=== PATIENT | female | born 1945 | race Caucasian/White ===

== ENCOUNTER 2016-08-14 13:12 | Inpatient (IN) | payer MEDICARE, OTHER ==
[~2016-08-14] VITALS: Ht 170.2 cm; Wt 86.3 kg
[~2016-08-14 13:12] MED LIST: ACET500T33 PO; AMLO10TA2 PO; AMLO5TAB2 PO; APIX5TAB PO; ASCO1TAB5 PO; ASPI81TA2 PO; ATEN25TA PO; ATOR10TA60 PO; ATOR40TA59 PO; CHOL10007 PO; CLOP75TA PO; CYAN50008 PO; FENO145T PO; FENO145T2 PO; FENO54TA PO; FURO40TA4 PO; GARL1CAP3 PO; GLIM2TAB PO; HYDR-2666 PO; HYDR-2762 PO; HYDR12.58 PO; IBUP-1007 PO; ISOS120T PO; LISI40TA PO; METF500T4 PO; MULT-650 PO; MULT1TAB97 PO; OMEG1CAP16 PO; RANI150T6 PO; SOTA80TA48 PO
[2016-08-14] MEDS ORDERED: ONDANSETRON PF 4 MG/2 ML VIAL. IV ONE (13:30)
--- NOTE | 2016-08-14 13:37 | RAD ---
Portable chest, 08/14/2016: History: Chest pain Comparison is made to a study from 01/04/2016. There has been a previous median sternotomy. The heart size and pulmonary vascularity are normal. No pulmonary infiltrates are seen. There is an unchanged small left lower lung opacity compatible with a granuloma. No pleural fluid is evident. IMPRESSION: No acute cardiopulmonary abnormality is detected.
[2016-08-14 13:44] LABS: BASO # 0.1 x10^3/uL (0.0-0.2); BASO % 1 % (0-3); EOS % 3 % (0-3); HEMATOCRIT 37.5 % (36.0-47.0); HEMOGLOBIN 12.8 g/dL (12.0-15.5); LYMPH # 2.1 x10^3/uL (1.0-4.8); LYMPH % 22 % (24-48); MEAN CORPUSCULAR HEMOGLOBIN 29 pg (25-35); MEAN CORPUSCULAR HGB CONC 34 g/dL (31-37); MEAN CORPUSCULAR VOLUME 85 fL (79-100); MONO % 8 % (0-9); NEUT % 66 % (31-73); PLATELET COUNT 372 x10^3/uL (140-400); RED BLOOD COUNT 4.42 x10^6/uL (3.50-5.40); RED CELL DISTRIBUTION WIDTH 14.8 % (11.5-14.5); WHITE BLOOD COUNT 9.9 x10^3/uL (4.0-11.0)
[2016-08-14 13:50] LABS: CALCIUM 9.4 mg/dL (8.5-10.1); CREATININE 1.2 mg/dL (0.6-1.0); GFR 44.5; MAGNESIUM 1.3 mg/dL (1.8-2.4); POTASSIUM 3.9 mmol/L (3.5-5.1)
[2016-08-14 13:53] LABS: INR 1.2 (0.8-1.1); PROTHROMBIN TIME PATIENT 14.8 SEC (11.7-14.0)
[2016-08-14 14:03] LABS: BARBITURATES NEG (NEG); BENZODIAZEPINES NEG (NEG); CANNABINOIDS NEG (NEG); COCAINE NEG (NEG); METHADONE NEG (NEG); OPIATES POS (NEG); PHENCYCLIDINE NEG (NEG)
[2016-08-14] MEDS: fentaNYL PF VIAL 100 MCG/2 ML VIAL IV PRN ×2 (14:03→14:54)
[2016-08-14] MEDS ORDERED: fentaNYL PF VIAL 100 MCG/2 ML VIAL IV PRN (14:15)
[2016-08-14] MEDS ORDERED: NITROGLYCERIN SUBLINGUAL 0.4 MG BOTTLE OF 25. SL PRN (14:15)
[2016-08-14] MEDS ORDERED: ACETAMINOPHEN 325 MG TABLET. PO PRN (14:15)
[2016-08-14] MEDS ORDERED: ONDANSETRON PF 4 MG/2 ML VIAL. IV PRN (14:15)
--- NOTE | 2016-08-14 14:17 | PHYS DOC ---
Past Medical History Past Medical History: CAD, Diabetes-Type II, High Cholesterol, Hypertension, Other Additional Past Medical Histor: carpal tunnel Past Surgical History: Coronary Bypass Surgery, Other Additional Past Surgical Histo: LEFT AKA; right carpal tunnel release Alcohol Use: None Drug Use: None Adult General Chief Complaint Chief Complaint: CHEST PAIN-CARDIAC NATURE HPI HPI Patient is a 70 year old female who presents by EMS for central chest pain starting at 1230 today associated with nausea and radiation to mid back. Symptoms are constant. Symptoms started at rest. Pain is achy. States this pain feels similar to prior heart attack pain. She denies fever or chills, vomiting , lightheadedness, dizziness, numbness, tingling, weakness, dyspnea, cough, orthopnea, leg pain or swelling, abdominal pain. Review of Systems Review of Systems Constitutional: Denies fever or chills [] Eyes: Denies change in visual acuity, redness, or eye pain [] HENT: Denies nasal congestion or sore throat [] Respiratory: Denies cough or shortness of breath [] Cardiovascular: No additional information not addressed in HPI [] GI: Denies abdominal pain, vomiting, bloody stools or diarrhea [] : Denies dysuria or hematuria [] Musculoskeletal: Denies back pain or joint pain [] Integument: Denies rash or skin lesions [] Neurologic: Denies headache, focal weakness or sensory changes [] Endocrine: Denies polyuria or polydipsia [] Current Medications Current Medications Current Medications Medications (Trade) Dose Ordered Sig/Shilo Start Time Stop Time Status Last Admin Dose Admin Fentanyl Citrate (Fentanyl 2ml Vial) 50 mcg PRN Q15MIN PRN 08/14/16 13:30 08/15/16 13:29 08/14/16 14:54 50 MCG Ondansetron HCl (Zofran) 4 mg 1X ONCE 08/14/16 13:30 08/14/16 13:31 DC 08/14/16 13:30 4 MG Allergies Allergies Allergies Coded Allergies Type Severity Reaction Last Updated Verified Penicillins Allergy Intermediate 01/05/16 Yes bacitracin Allergy Intermediate 01/05/16 Yes ciprofloxacin Allergy Intermediate 11/02/13 Yes erythromycin base Allergy Intermediate 01/05/16 Yes neomycin Allergy Intermediate 01/05/16 Yes niacin Allergy Intermediate 04/14/14 Yes polymyxin B Allergy Intermediate 11/02/13 Yes Physical Exam Physical Exam Constitutional: Well developed, well nourished, no acute distress, non-toxic appearance. [] HENT: Normocephalic, atraumatic, bilateral external ears normal, oropharynx moist, nose normal. [] Eyes: PERRLA, EOMI. [] Neck: Normal range of motion, supple. [] Cardiovascular:Heart rate regular rhythm [] Lungs & Thorax: Bilateral breath sounds clear to auscultation [] Abdomen: Bowel sounds normal, soft, no tenderness. [] Skin: Warm, dry, no erythema, no rash. [] Back: No tenderness, no CVA tenderness. [] Extremities: No tenderness, ROM intact, 1+ RLE edema. Left AKA [] Neurologic: Alert and oriented X 3, normal motor function, normal sensory function, no focal deficits noted. [] Psychologic: Affect normal, judgement normal, mood normal. [] Current Patient Data Vital Signs Vital Signs Date Time Temp Pulse Resp B/P Pulse Ox O2 Delivery O2 Flow Rate FiO2 08/14/16 14:00 116 18 133/78 97 08/14/16 13:30 Room Air 08/14/16 13:14 98.4 98.4 Lab Values Laboratory Tests Test 08/14/16 13:19 08/14/16 13:20 08/14/16 13:50 Glucose (Fingerstick) 240mg/dL (70-99) H White Blood Count 9.9x10^3/uL (4.0-11.0) Red Blood Count 4.42x10^6/uL (3.50-5.40) Hemoglobin 12.8g/dL (12.0-15.5) Hematocrit 37.5% (36.0-47.0) Mean Corpuscular Volume 85fL (79-100) Mean Corpuscular Hemoglobin 29pg (25-35) Mean Corpuscular Hemoglobin Concent 34g/dL (31-37) Red Cell Distribution Width 14.8% (11.5-14.5) H Platelet Count 372x10^3/uL (140-400) Neutrophils (%) (Auto) 66% (31-73) Lymphocytes (%) (Auto) 22% (24-48) L Monocytes (%) (Auto) 8% (0-9) Eosinophils (%) (Auto) 3% (0-3) Basophils (%) (Auto) 1% (0-3) Neutrophils # (Auto) 6.5x10^3uL (1.8-7.7) Lymphocytes # (Auto) 2.1x10^3/uL (1.0-4.8) Monocytes # (Auto) 0.8x10^3/uL (0.0-1.1) Eosinophils # (Auto) 0.3x10^3/uL (0.0-0.7) Basophils # (Auto) 0.1x10^3/uL (0.0-0.2) Prothrombin Time 14.8SEC (11.7-14.0) H Prothrombin Time INR 1.2 (0.8-1.1) H Sodium Level 139mmol/L (136-145) Potassium Level 3.9mmol/L (3.5-5.1) Chloride Level 100mmol/L (98-107) Carbon Dioxide Level 29mmol/L (21-32) Anion Gap 10 (6-14) Blood Urea Nitrogen 20mg/dL (7-20) Creatinine 1.2mg/dL (0.6-1.0) H Estimated GFR (Cockcroft-Gault) 44.5 Glucose Level 248mg/dL (70-99) H Calcium Level 9.4mg/dL (8.5-10.1) Magnesium Level 1.3mg/dL (1.8-2.4) L Troponin I Quantitative 0.022ng/mL (0.000-0.055) QG-Mqt-W-Type Natriuretic Peptide 618pg/mL (0-124) H Urine Opiates Screen Pos (NEG) Urine Methadone Screen Neg (NEG) Urine Barbiturates Neg (NEG) Urine Phencyclidine Screen Neg (NEG) Urine Amphetamine/Methamphetamine Neg (NEG) Urine Benzodiazepines Screen Neg (NEG) Urine Cocaine Screen Neg (NEG) Urine Cannabinoids Screen Neg (NEG) Urine Ethyl Alcohol Neg (NEG) Laboratory Tests 08/14/16 13:20 Laboratory Tests 08/14/16 13:20 EKG EKG EKG as interpreted by me as atrial fibrillation with right bundle branch block, rate 121, similar to prior Radiology/Procedures Radiology/Procedures Chest xray as interpreted by me with no acute cardiopulmonary disease process Course & Med Decision Making Course & Med Decision Making Pertinent Labs and Imaging studies reviewed. (See chart for details) CIERRA score 3. Workup is largely unremarkable. She has some remnant nausea, but her pain is improved after medication. Risk factors, we will admit for ACS rule out. Discussed case with Dr. Pritchard, who will admit. Cardiology consult placed. Eb Disclaimer Dragon Disclaimer This electronic medical record was generated, in whole or in part, using a voice recognition dictation system. Departure Departure Impression: Primary Impression: Chest pain Additional Impression: A-fib Disposition: ADMITTED INPATIENT Condition: STABLE Referrals: CHRISTINA PRITCHARD MD (PCP) Problem Qualifiers Primary Impression: Chest pain Chest pain type: unspecified Qualified Code: R07.9 - Chest pain, unspecified Additional Impression: A-fib Atrial fibrillation type: chronic Qualified Code: I48.2 - Chronic atrial fibrillation Js FARIA MD Aug 14, 2016 14:17
--- NOTE | 2016-08-14 15:00 | ACF ---
Admission Forms Criteria CHEST PAIN Clinical Indications for Admission to Inpatient Care (Place 'X' for any and all applicable criteria): Admission is indicated for chest pain and ANY ONE of the following(1)(2)(3)(4)(5 ): [ ]I. Angina with acute coronary syndrome (Also use Myocardial Infarction or Angina guideline) [ ]II. Hemodynamic instability [X]III. Angina needing acute intervention as indicated by ALL of the following( 11)(12): [X]a) Unstable angina is present as indicated by angina that is ANY ONE of the following: [ ]i) New onset [ ]ii) Nocturnal [X]iii) Prolonged at rest [ ]iv) Progressive [X]b) Angina warrants acute intervention as indicated by ANY ONE of the following: [ ]i) Recurrent angina (e.g, not responding as previously to treatment) [ ]ii) Angina at rest or with low-level activities despite initial medical therapy [ ]iii) New or presumably new ST-segment depression on ECG [ ]iv) Signs or symptoms of heart failure (eg, dyspnea, pulmonary edema) [ ]v) New or worsening mitral regurgitation [ ]vi) Hemodynamic instability [ ]vii) Dangerous arrhythmia (eg, sustained ventricular tachycardia) [ ]viii) History of percutaneous coronary intervention within 6 months [X]ix) History of coronary artery bypass graft surgery [ ]x) CIERRA risk score of 2 or greater[A] [ ]xi) History of Diabetes(14) [ ]xii) High-risk cardiac ischemia findings on noninvasive testing (e.g, echocardiogram, treadmill testing, nuclear scan) [ ]xiii) Chronic renal insufficiency (ie, estimated GFR less than 60 mL/min/1.732m) [ ]xiv) Left ventricular ejection fraction less than 40% [ ]IV. Evidence of IN (eg, cardiac biomarkers positive, ST-segment elevation on ECG) also use Myocardial Infarction Criteria Form. [ ]V. Pulmonary edema [ ]. Respiratory distress [ ]VII. Chest pain indicative of serious diagnosis other than coronary artery disease (eg, aortic dissection) [ ]VIII. Contraindications and/or Inappropriate clinical situations for Observational Care in patients with Chest Pain, when ANY ONE of the following is required: [ ]a) Patient with risk factor for pulmonary embolism, acute coronary syndrome and myocardial infarction (18) [ ]b) Patient with Pulmonary embolism require an average LOS of 4.3 days, therefore emergency department observation management is inappropriate 18,23 [ ]c) Painful condition/s in the elderly, have the highest rate of recidivism after emergency department observation management (10.8%) 20,21,22 [ ]d) Elevated cardiac biomarker requires intensive and exhaustive care (19) [ ]IX. General contraindications and/or Inappropriate clinical situations for Observational Care in patients with Chest Pain, when ANY ONE of the following is required: [ ]a) Prediction of prolongation of LOS based on ANY ONE of the following may be considered as a contraindication for observational care 2, 3, 4, 5, 6, 7, 8, 9, 10, 11 [ ]i) Age > 65 yrs. [ ]ii) Patient arriving by ambulance [ ]iii) Patient with high acuity [ ]iv) Patient requiring vital sign monitoring [ ]v) Patient on IV medication [ ]b) Systolic blood pressures 180mmHg 3,12 [ ]c) Patient with altered mental status including delirium and other alteration of consciousness, (3) [ ]d) Patient whose discharge disposition will be to a half-way home or rehabilitation home should not be managed in Emergency Department Observation Unit. CMS rule requires 3 days hospital stay before such placement. 3,13 [ ]e) Patient with failure to thrive due to broad array of etiologies 3,16,17 [ ]f) Inability to ambulate 3,14 Extended stay beyond goal length of stay may be needed for (1)(28): [ ]a) Specific condition diagnosed after evaluation (eg, pulmonary embolism, aortic dissection) [ ]b) Unstable angina [ ]c) Continued suspicion of acute coronary syndrome with inability to complete needed cardiac evaluation (eg, patient clinically unable to undergo stress testing) [ ]d) Myocardial infarction (Contents from ANGINA and CHEST PAIN clinical indications for admission to inpatient care have been integrated in this form) The original [email or web address] content created by [email or web address] has been revised. The portions of the content which have been revised are identified through the use of italic text or in bold, and [facility] [employer] has neither reviewed nor approved the modified material. All other unmodified content is copyright [email or web address]. Please see references footnoted in the original [facility] edition 2016 Admission Criteria Met?: Yes GIRMA JOHN Aug 14, 2016 15:00
--- NOTE | 2016-08-14 16:03 | EKG ---
[facility] [address] [place] [address] Test Date: 2016-08-14 Test Time: 13:14:26 Pat Name: MARISA RIOJAS Department: Room: 244 1 Gender: F Network Associate: : 1945 Requested By: Js FARIA Order Number: [id number] Reading MD: Christy King Measurements Intervals [place] Rate: 121 P: NC: QRS: -70 QRSD: 122 T: 65 QT: 346 QTc: 494 Interpretive Statements ATRIAL FIB./FLUTTER WITH RAPID VENTRICULAR RESPONSE LEFT ANTERIOR FASCICULAR BLOCK INCOMPLETE RIGHT BUNDLE BRANCH BLOCK RVH WITH REPOLARIZATION ABNORMALITY Electronically Signed On 08-18-2016 13:33:22 CDT by Christy King
[2016-08-14 16:35] VITALS: BP 148/51
[2016-08-14 19:21] VITALS: BP 162/59
[2016-08-14] MEDS ORDERED: ZOLPIDEM 5 MG TABLET. PO PRN (21:00)
[2016-08-14] MEDS ORDERED: FAMOTIDINE 20 MG TABLET. PO PRN (21:15)
[2016-08-14] MEDS: ATORVASTATIN CALCIUM 40 MG TABLET. PO SCH (21:36)
[2016-08-14 22:18] VITALS: BP 174/60
[2016-08-14] MEDS: amLODIPine BESYLATE 5 MG TABLET PO SCH (23:00)
[2016-08-14] MEDS: APIXABAN 5 MG TABLET. PO SCH (23:00)
[2016-08-15] VITALS (8 sets, daily range): BP systolic 163–184; BP diastolic 55–73
[2016-08-15] MEDS: HYDROCODONE/APAP 5/325MG TABLET. PO PRN ×2 (03:27→23:17)
[2016-08-15] MEDS ORDERED: amLODIPine BESYLATE 5 MG TABLET PO ONE (04:00)
[2016-08-15] MEDS: APIXABAN 5 MG TABLET. PO SCH (07:00)
[2016-08-15] MEDS ORDERED: ANTI-COAG MONITOR BY PHARMACY. MC PRN (08:30)
[2016-08-15] MEDS ORDERED: amLODIPine BESYLATE 5 MG TABLET PO SCH (09:00)
[2016-08-15] MEDS ORDERED: NON FORMULARY ITEM (Ascorbate Calcium/Bioflavonoid (Ester-C 1,000 Mg Tablet) 1 EACH) PO SCH (09:00)
[2016-08-15] MEDS ORDERED: HYDROCHLOROTHIAZIDE 12.5 MG CAPSULE. PO SCH (09:00)
[2016-08-15] MEDS ORDERED: SOTALOL 80 MG TABLET. PO SCH (09:00)
[2016-08-15] MEDS ORDERED: LISINOPRIL 40 MG TABLET. PO SCH (09:00)
[2016-08-15] MEDS: CLOPIDOGREL BISULFATE 75 MG TABLET PO SCH (09:07)
[2016-08-15] MEDS: CHOLECALCIFEROL (VITAMIN D3) 1,000 UNIT TABLET PO SCH (09:07)
[2016-08-15] MEDS: OMEGA-3 FATTY ACIDS/FISH OIL 1,000 MG CAPSULE. PO SCH (09:07)
[2016-08-15] MEDS: FUROSEMIDE 40 MG TABLET. PO SCH (09:07)
[2016-08-15] MEDS: ASPIRIN CHEWABLE 81 MG TABLET. PO SCH (09:07)
[2016-08-15] MEDS: ISOSORBIDE MONONITRATE ER 60 MG TAB.ER.24H. PO SCH (09:07)
[2016-08-15] MEDS: GLIMEPIRIDE 2 MG TABLET. PO SCH (09:08)
[2016-08-15] MEDS: CYANOCOBALAMIN (VITAMIN B-12) 1,000 MCG TABLET. PO SCH (09:08)
--- NOTE | 2016-08-15 09:25 | PDOC ---
Provider Note Provider Note [id number] CHRISTINA ROSENBAUM MD Aug 15, 2016 09:25
[2016-08-15] MEDS ORDERED: HEPARIN 25,000UTS/500ML PREMIX 500 ML IV PRN (09:30)
[2016-08-15] MEDS ORDERED: HEPARIN for IV BOLUS 10,000 UNIT/10 ML VIAL. IV PRN (09:30)
[2016-08-15] MEDS ORDERED: LABETALOL 20 MG/4 ML DISP.SYRIN. IVP PRN (09:30)
--- NOTE | 2016-08-15 09:38 | PDOC2 ---
GOPI HERNANDEZ DIRECTOR OF ACQUISITIONS 08/15/16 0938: CARDIAC CONSULT DATE OF CONSULT Date of Consult DATE: 08/15/16 TIME: 09:26 REASON FOR CONSULT Reason for Consult: Chest pain REFERRING PHYSICIAN Referring Physician: Liam SOURCE Source: Chart review, Patient HISTORY OF PRESENT ILLNESS HISTORY OF PRESENT ILLNESS This is a pleasant 70 yo female admitted for complains of chest pain. Reports that she was taking a nap yesterday and woke up with pulsating sensation to her right neck around noon. she checked it with her BP device and noted HR in the 120s. She then started having retrosternal heaviness that radiated to her mid back. she was also having bilateral shoulder discomfort more to right side. In addition she was sick to her stomach and was nauseated but no vomiting. Also positive for diaphoresis but no SOA. Her symptoms peaked for about 1 hour before it started getting better. Reports that she 3 loose stools yesterday, not watery, but it has resolved since then. Denies any fever or chills. No presyncopal symptoms. Verbalized compliance with her cardiac meds. She did tell me that she stopped taking her DM meds since she was told that she does not need anymore. She does not check her BG and BP at home. She is sedentary, WC bound with LAKA. Upon admission she was noted with AFIB RVR in which she is now in SR. She is known for CAD, PAD, PAFIB but no hx of VTE. Currently she is CP free and no current symptoms except for right shoulder discomfort which she attributes to OA. PAST MEDICAL HISTORY Past Medical History Cardiovascular: AFIB, CAD (with CABG - 2008 and PCI/stent to left main), HTN, Hyperlipidemia, Other (PVD with stent to right SFA and stents to bilateral renal arteries), moderate to severe Pulmonary: No pertinent hx CENTRAL NERVOUS SYSTEM: Other (none) GI: No pertinent hx Heme/Onc: No pertinent hx Hepatobiliary: No pertinent hx Psych: No pertinent hx Musculoskeletal: Osteoarthritis Rheumatologic: No pertinent hx Infectious disease: No pertinent hx ENT: No pertinent hx Renal/: Chronic renal insuff, Right renal artery showed 100% chronic occlusion within the stent in the proximal segment. Left renal artery showed 30 % in-stent restenosis within the stent in the proximal segment. Endocrine: Diabetes (type II) Dermatology: No pertinent hx PAST SURGICAL HISTORY Past Surgical History CABG (2008), Other (ectopic ; left AKA from [facility]; left hip surgery), 2015 renal and femoral angiogram, 03/2016 Orbital atherectomy/balloon [employer]/stent placement to the right superficial femoral artery FAMILY HISTORY Family History: Coronary Artery Disease SOCIAL HISTORY Social History Smoke: Quit (2008) ALCOHOL: none Drugs: None CURRENT MEDICATIONS CURRENT MEDICATIONS Current Medications Medications (Trade) Dose Ordered Sig/Shilo Route PRN Reason Start Time Stop Time Status Last Admin Dose Admin Fentanyl Citrate (Fentanyl 2ml Vial) 50 mcg PRN Q15MIN PRN IV PAIN GREATER THAN 3/10 08/14/16 13:30 08/15/16 13:29 08/14/16 14:54 Ondansetron HCl (Zofran) 4 mg 1X ONCE IV 08/14/16 13:30 08/14/16 13:31 DC 08/14/16 13:30 Apixaban (Eliquis) 5 mg [id number] PO 08/14/16 19:00 08/14/16 23:00 Aspirin (Children'S Aspirin) 81 mg DAILYWBKFT PO 08/15/16 08:00 08/15/16 09:07 Atorvastatin Calcium (Lipitor) 40 mg HS PO 08/14/16 21:00 08/14/16 21:36 Clopidogrel Bisulfate (Plavix) 75 mg DAILYWBKFT PO 08/15/16 08:00 08/15/16 09:07 Furosemide (Lasix) 40 mg DAILY PO 08/15/16 09:00 08/15/16 09:07 Glimepiride (Amaryl) 1 mg DAILY08 PO 08/15/16 08:00 08/15/16 09:08 Acetaminophen/ Hydrocodone Bitart (Lortab 5/325) 2 tab PRN Q6HRS PRN PO PAIN 08/14/16 18:45 08/15/16 03:27 Lisinopril (Prinivil) 40 mg DAILY PO 08/15/16 09:00 08/15/16 09:06 Vitamin D (Vitamin D3) 2,000 unit DAILY PO 08/15/16 09:00 08/15/16 09:07 Cyanocobalamin (Vitamin B-12) 5,000 mcg DAILY PO 08/15/16 09:00 08/15/16 09:08 Hydrochlorothiazide (Microzide) 12.5 mg DAILY PO 08/15/16 09:00 08/15/16 09:06 Isosorbide Mononitrate (Imdur) 120 mg DAILY PO 08/15/16 09:00 08/15/16 09:07 Fish Oil (Fish Oil) 2,000 mg DAILY PO 08/15/16 09:00 08/15/16 09:07 Famotidine (Pepcid) 40 mg PRN DAILY PRN PO GERD 08/14/16 21:15 08/14/16 21:36 Amlodipine Besylate (Norvasc) 5 mg HS PO 08/14/16 22:30 08/14/16 23:00 Amlodipine Besylate (Norvasc) 5 mg 1X ONCE PO 08/15/16 04:00 08/15/16 04:01 DC 08/15/16 03:49 Info (Anti-Coagulation Monitoring By Pharmacy) 1 each PRN DAILY PRN MC SEE COMMENTS 08/15/16 08:30 08/15/16 08:20 ALLERGIES ALLERGIES: Coded Allergies: Penicillins (Verified Allergy, Intermediate, 01/05/16) bacitracin (Verified Allergy, Intermediate, 01/05/16) ciprofloxacin (Verified Allergy, Intermediate, 11/02/13) erythromycin base (Verified Allergy, Intermediate, 01/05/16) neomycin (Verified Allergy, Intermediate, 01/05/16) niacin (Verified Allergy, Intermediate, 04/14/14) polymyxin B (Verified Allergy, Intermediate, 11/02/13) ROS Review of System 14 point ROS evaluated with pertinent positives noted per HPI PHYSICAL EXAM General: Alert, Oriented X3, Cooperative, No acute distress HEENT: Atraumatic, Mucous membr. moist/pink Lungs: Clear to auscultation, Normal air movement Heart: Regular rate (SR), Normal S1, Normal S2, Other (4/6 systolic murmur loudest to AMBAR border) Abdomen: Soft, No tenderness Extremities: No cyanosis, Other (LAKA, RLE with 2+ pitting edema) Skin: No breakdown, No significant lesion Neuro: Normal speech, Sensation intact Psych/Mental Status: Mental status NL, Mood NL MUSCULOSKELETAL: Osteoarthritic changes both hands VITALS VITALS Vital Signs Date Time Temp Pulse Resp B/P Pulse Ox O2 Delivery O2 Flow Rate FiO2 08/15/16 09:07 170/72 08/15/16 06:55 98.2 57 18 94 Room Air 98.2 LABS Lab: Laboratory Tests Test 08/14/16 13:19 08/14/16 13:20 08/14/16 13:50 08/14/16 20:00 Glucose (Fingerstick) 240mg/dL (70-99) White Blood Count 9.9x10^3/uL (4.0-11.0) Red Blood Count 4.42x10^6/uL (3.50-5.40) Hemoglobin 12.8g/dL (12.0-15.5) Hematocrit 37.5% (36.0-47.0) Mean Corpuscular Volume 85fL (79-100) Mean Corpuscular Hemoglobin 29pg (25-35) Mean Corpuscular Hemoglobin Concent 34g/dL (31-37) Red Cell Distribution Width 14.8% (11.5-14.5) Platelet Count 372x10^3/uL (140-400) Neutrophils (%) (Auto) 66% (31-73) Lymphocytes (%) (Auto) 22% (24-48) Monocytes (%) (Auto) 8% (0-9) Eosinophils (%) (Auto) 3% (0-3) Basophils (%) (Auto) 1% (0-3) Neutrophils # (Auto) 6.5x10^3uL (1.8-7.7) Lymphocytes # (Auto) 2.1x10^3/uL (1.0-4.8) Monocytes # (Auto) 0.8x10^3/uL (0.0-1.1) Eosinophils # (Auto) 0.3x10^3/uL (0.0-0.7) Basophils # (Auto) 0.1x10^3/uL (0.0-0.2) Prothrombin Time 14.8SEC (11.7-14.0) Prothromb Time International Ratio 1.2 (0.8-1.1) Sodium Level 139mmol/L (136-145) Potassium Level 3.9mmol/L (3.5-5.1) Chloride Level 100mmol/L (98-107) Carbon Dioxide Level 29mmol/L (21-32) Anion Gap 10 (6-14) Blood Urea Nitrogen 20mg/dL (7-20) Creatinine 1.2mg/dL (0.6-1.0) Estimated GFR (Cockcroft-Gault) 44.5 Glucose Level 248mg/dL (70-99) Calcium Level 9.4mg/dL (8.5-10.1) Magnesium Level 1.3mg/dL (1.8-2.4) Troponin I Quantitative 0.022ng/mL (0.000-0.055) 2.297ng/mL (0.000-0.055) RK-Ulf-T-Type Natriuretic Peptide 618pg/mL (0-124) Urine Opiates Screen Pos (NEG) Urine Methadone Screen Neg (NEG) Urine Barbiturates Neg (NEG) Urine Phencyclidine Screen Neg (NEG) Urine Amphetamine/Methamphetamine Neg (NEG) Urine Benzodiazepines Screen Neg (NEG) Urine Cocaine Screen Neg (NEG) Urine Cannabinoids Screen Neg (NEG) Urine Ethyl Alcohol Neg (NEG) Test 08/15/16 02:55 Troponin I Quantitative 4.636ng/mL (0.000-0.055) ECHOCARDIOGRAM ECHOCARDIOGRAM <Conclusion> Left ventricle systolic function is normal. The Ejection Fraction is 50-55%. There is normal LV segmental wall motion. Tissue Doppler imaging reveals moderate left ventricular diastolic dysfunction. The aortic valve is moderately calcified and displays decreased opening. Doppler and Color Flow revealed moderate aortic regurgitation. Calculated aortic valve area is 1.2 cm2 with maximum pressure gradient of 51 mmHg and mean pressure gradient of 27 mmHg. Visual appearance suggestive of moderate to severe aortic stenosis. Doppler and Color Flow revealed mild tricuspid regurgitation. The PA pressure was estimated at 48 mmHg (mild to moderate pulmonary HTN) DATE: 11/21/15 1220 ASSESSMENT/PLAN ASSESSMENT/PLAN 1. NSTEMI: troponin 4.6, EKG AFIB 2. CAD: CABG/stents in the past. [facility] 08/2015 GUTIERREZ to LAD patent. 60% mid lesion to LAD, Chronically occluded RCA with 80% ostial lesion. 40% lesion to LCx 3. AFIB RVR: paroxysmal by baseline. on sotalol. Has converted back to SR. QTc 448 4. Polyvalvular insufficiency: notable for moderate to severe with mod AI. 5. Chronic diastolic CHF: 10/2015 TTE EF 50-55% with normal LV function 6. PAD: recent RSFA percutaneous revascularization 7. Accelerated HTN: missed medications 8. DM2/HLP: Stopped taking amaryl 2 weeks ago. 9. 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 Hypomagnesemia 11. FRANTZ on CKD: likely stage 3 by baseline, prerenal 12. Diarrhea: 3 loose stools (not watery) yesterday, now resolved. Per PCP Recommendations 1. Continue with DAPT 2. Stop eliquis and start on heparin drip 3. Continue with sotalol and current home regimen. 4. Lisinopril has been given and will stop for now. Labetalol IV PRN 5. Replace Mg and start on IVF. 6. CMP, Mg, TSH, repeat EKG. 7. Significant other contributors for troponin elevation but with typical features, await TTE result and will consider for LHC tomorrow. 8. TTE, and continue to trend troponin Problems: WILLI LINDSEY MD 08/16/16 0748: CARDIAC CONSULT ALLERGIES ALLERGIES: Coded Allergies: Penicillins (Verified Allergy, Intermediate, 01/05/16) bacitracin (Verified Allergy, Intermediate, 01/05/16) ciprofloxacin (Verified Allergy, Intermediate, 11/02/13) erythromycin base (Verified Allergy, Intermediate, 01/05/16) neomycin (Verified Allergy, Intermediate, 01/05/16) niacin (Verified Allergy, Intermediate, 04/14/14) polymyxin B (Verified Allergy, Intermediate, 11/02/13) ASSESSMENT/PLAN ASSESSMENT/PLAN Patient seen and examined 08/15/16. Agree with FRONT OF HOUSE MANAGER's assessment and plan. Patient with history of coronary artery disease s/p coronary artery bypass surgery presently admitted with non-STEMI. Continue heparin infusion per protocol. 2-D echo showed preserved left ventricle systolic function. Blood pressure better controlled since admission. Plan for cardiac catheterization and possible angioplasty. Risks and benefits explained. Thank you for the consultation. Problems: GOPI HERNANDEZ APRN Aug 15, 2016 09:38 WILLI LINDSEY MD Aug 16, 2016 07:48
[2016-08-15 09:58] LABS: ALBUMIN 2.9 g/dL (3.4-5.0); ALBUMIN/GLOBULIN RATIO 0.8 (1.0-1.7); CALCIUM 8.9 mg/dL (8.5-10.1); CREATININE 1.6 mg/dL (0.6-1.0); MAGNESIUM 1.3 mg/dL (1.8-2.4); POTASSIUM 3.6 mmol/L (3.5-5.1); TOTAL BILIRUBIN 0.5 mg/dL (0.2-1.0); TOTAL PROTEIN 6.5 g/dL (6.4-8.2)
[2016-08-15 10:01] LABS: CHOLESTEROL/HDL RATIO 3.6
[2016-08-15] MEDS ORDERED: IV NORMAL SALINE 1000ML BAG 1,000 ML IV ONE (10:15)
--- NOTE | 2016-08-15 10:45 | EKG ---
[facility] [address] [place] [address] Test Date: 2016-08-15 Test Time: 10:41:25 Pat Name: MARISA RIOJAS Department: Room: 261 1 Gender: F Zanjero: MARILY : 1945 Requested By: GOPI HERNANEDZ Order Number: [id number] Reading MD: Bhupendra Kemp Measurements Intervals [place] Rate: 59 P: 9 CA: 182 QRS: -21 QRSD: 124 T: 24 QT: 448 QTc: 448 Interpretive Statements SINUS RHYTHM RIGHT BUNDLE BRANCH BLOCK NON-SPECIFIC ST/T CHANGES Electronically Signed On 08-21-2016 14:21:21 CDT by Bhupendra Kemp
[2016-08-15] MEDS: IV NORMAL SALINE 1000ML BAG 1,000 ML IV SCH (10:52)
[2016-08-15] MEDS ORDERED: MAGNESIUM SULFATE 2GM 50 ML IV ONE (11:00)
--- NOTE | 2016-08-15 14:31 | HP ---
ADMIT DATE: 08/15/2016 CHIEF COMPLAINT: Chest pain. HISTORY OF PRESENT ILLNESS: A _[id number] white female with a history of coronary artery disease, peripheral vascular disease and diabetes who was awakened on the morning of admission with rapid heartbeat and then subsequently some chest pain. She has not had any chest pain recently and had an episode of a transient atrial fibrillation one or two months ago. At that time, she was switched from atenolol to sotalol and has not felt that same recurrence of fast heart rate until the day of admission. She had atrial fibrillation in the ER with a rate of 120 and at some point, this converted to sinus rhythm. She has had no pain since then. PAST MEDICAL HISTORY: Well documented in the old records. ALLERGIES: PENICILLIN AND CIPRO. MEDICATIONS: Multiple blood pressure medicines, well controlled type 2 diabetes with glimepiride only. SOCIAL HISTORY: Nonsmoker. 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 FAMILY HISTORY: Unremarkable. REVIEW OF SYSTEMS: No other specific complaints. OBJECTIVE: ENT: All within normal limits. NECK: No bruits, nodes or masses. LUNGS: Clear. CARDIOVASCULAR: Grade 2 systolic murmur throughout the precordium. No irregular beat or murmur. ABDOMEN: Benign, nontender. 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 Right leg shows 1+ edema. Decreased pedal pulses. Upper extremities normal. SKIN: Warm. ASSESSMENT: Recurrent atrial fibrillation with rapid ventricular response and then secondary to some subsequent chest pain and elevation of troponin. She is back in sinus rhythm now and feeling better. This could have just been demand ischemia with troponin elevation. PLAN: We will increase sotalol for now. She is already on Eliquis and aspirin. Cardiovascular consultation has been obtained. CHRISTINA ROSENBAUM MD DR: AVNI/concetta JOB#: [id number] / [id number]
--- NOTE | 2016-08-15 15:34 | CARD ---
APPROVED REPORT EXAM: Two-dimensional and M-mode echocardiogram with Doppler and color Doppler. Other Information Quality : Average Rhythm : NSR INDICATION Atrial Fibrillation Chest Pain 2D DIMENSIONS Left Atrium(2D)4.7 (1.6-4.0cm)IVSd0.9 (0.7-1.1cm) LVDd5.4 (3.9-5.9cm)LVOT Diameter2.0 (1.8-2.4cm) PWd1.0 (0.7-1.1cm)LVDs3.4 (2.5-4.0cm) FS (%) 36.0 %SV91.2 ml LVEF(%)65.1 (>50%) Aortic Valve AoV Peak Donte.344.5cm/sAoV VTI84.5cm AO Peak GR.47.5mmHgLVOT VTI 38.98cm AO Mean GR.20mmHgAVA (VTI)1.30cm2 AI P 1/2 Zynu365ul Mitral Valve MV E Oeqnmybv415.3cm/sMV E Peak Gr.5mmHg MV DECEL [id number] A Katcljei21.5cm/s MV E Mean Gr.2mmHgMV WVI95zc E/A Ratio1.4MV A Dcrsoxdk430zm MVA (PHT)2.82cm2 TDI Lateral E' P. V7.59cm/sMedial E' P. V5.36cm/s E/Lateral E'13.6E/Medial E'19.3 Tricuspid Valve TR P. Wqofrylp294ze/sRAP FZLPGBMT8ahLy TR Peak Gr.25xlTzQVTU92znTk Pulmonary Vein S1 Qskvccfj60.9cm/sS2 Oiddliuf36.93cm/s D2 Oiqqgzrv30.9cm/s LEFT VENTRICLE The left ventricle is normal size. The left ventricle is normal size. There is normal left ventricula r wall thickness. Left ventricle systolic function is normal. The Ejection Fraction is 60-65%. There is normal LV segmental wall motion. The left ventricular diastolic function and filling is normal for age. RIGHT VENTRICLE The right ventricle is normal size. The right ventricular systolic function is normal. ATRIA The left atrium size is normal. The right atrium size is normal. The interatrial septum is intact wit h no evidence for an atrial septal defect or patent foramen ovale as noted on 2-D or Doppler imaging. AORTIC VALVE The aortic valve is not well visualized. Doppler and Color Flow revealed mild to moderate aortic regu rgitation. Calculated aortic valve area is 1.3 cm2 with maximum pressure gradient of 48 mmHg and mean pressure gradient of 20 mmHg. MITRAL VALVE The mitral valve is normal in structure and function. There is no mitral valve stenosis. Doppler and Color Flow revealed mild mitral regurgitation. TRICUSPID VALVE The tricuspid valve is normal in structure and function. Doppler and Color Flow revealed mild tricusp id regurgitation. The PA pressure was estimated at 25 mmHg. There is no tricuspid valve stenosis. PULMONIC VALVE The pulmonic valve is not well visualized. Doppler and Color Flow revealed no pulmonic valvular regur gitation. There is no pulmonic valvular stenosis. GREAT VESSELS The aortic root is normal in size. Normal pulmonary venous flow (Doppler). The IVC was not visualized . PERICARDIAL EFFUSION There is no evidence of significant pericardial effusion. Critical Notification Critical Value: No <Conclusion> Left ventricle systolic function is normal. The Ejection Fraction is 60-65%. There is normal LV segmental wall motion. Mild to moderate aortic regurgitation. Mild mitral regurgitation. Mld tricuspid regurgitation. The PA pressure was estimated at 25 mmHg. There is no evidence of significant pericardial effusion.
[2016-08-15] MEDS: SOTALOL 80 MG TABLET. PO SCH (18:20)
[2016-08-15] MEDS: amLODIPine BESYLATE 5 MG TABLET PO SCH (21:09)
[2016-08-15] MEDS: ATORVASTATIN CALCIUM 40 MG TABLET. PO SCH (21:09)
[2016-08-16] VITALS (17 sets, daily range): BP systolic 113–198; BP diastolic 49–73
[2016-08-16] MEDS: IV NORMAL SALINE 1000ML BAG 1,000 ML IV SCH ×2 (01:00→15:02)
[2016-08-16] MEDS: SOTALOL 80 MG TABLET. PO SCH ×2 (05:55→17:20)
[2016-08-16] MEDS: OMEGA-3 FATTY ACIDS/FISH OIL 1,000 MG CAPSULE. PO SCH (09:33)
[2016-08-16] MEDS: GLIMEPIRIDE 2 MG TABLET. PO SCH (09:33)
[2016-08-16] MEDS: CYANOCOBALAMIN (VITAMIN B-12) 1,000 MCG TABLET. PO SCH (09:33)
[2016-08-16] MEDS: ISOSORBIDE MONONITRATE ER 60 MG TAB.ER.24H. PO SCH (09:34)
[2016-08-16] MEDS: CHOLECALCIFEROL (VITAMIN D3) 1,000 UNIT TABLET PO SCH (09:34)
[2016-08-16] MEDS: ASPIRIN CHEWABLE 81 MG TABLET. PO SCH (09:34)
[2016-08-16] MEDS: FUROSEMIDE 40 MG TABLET. PO SCH (09:34)
[2016-08-16] MEDS: CLOPIDOGREL BISULFATE 75 MG TABLET PO SCH (09:34)
[2016-08-16 09:40] LABS: CALCIUM 8.5 mg/dL (8.5-10.1); CREATININE 1.2 mg/dL (0.6-1.0); GFR 44.5
--- NOTE | 2016-08-16 09:50 | PDOC ---
Provider Note Provider Note trop back down, tsh ok, no more AF so far on higher dose sotalol- creat down also- cath today CHRISTINA ROSENBAUM MD Aug 16, 2016 09:50
[2016-08-16] MEDS ORDERED: LIDOCAINE 2% 20 ML VIAL. ONE (11:01)
[2016-08-16] MEDS ORDERED: IODIXANOL 320 MG/ML 100 ML VIAL. ONE (11:01)
[2016-08-16] MEDS ORDERED: MIDAZOLAM HCL/PF 2 MG/2 ML VIAL. ONE (11:26)
[2016-08-16] MEDS ORDERED: fentaNYL PF VIAL 100 MCG/2 ML VIAL ONE (11:26)
[2016-08-16] MEDS ORDERED: LIDOCAINE 2% 20 ML VIAL. IJ ONE (11:29)
[2016-08-16] MEDS ORDERED: BIVALIRUDIN 250 MG VIAL. IV ONE ×2 (11:42→11:46)
[2016-08-16] MEDS ORDERED: NITROGLYCERIN 200 MCG/2 ML SYRINGE FOR CATH/VASC LAB. IART ONE (11:47)
[2016-08-16] MEDS ORDERED: hydrALAZINE 20 MG/ML VIAL. ONE ×2 (11:59→12:07)
[2016-08-16] MEDS ORDERED: NITROGLYCERIN PREMIX 250 ML IV ONE (11:59)
[2016-08-16] MEDS ORDERED: hydrALAZINE 20 MG/ML VIAL. IVP ONE ×2 (12:00→12:11)
[2016-08-16] MEDS ORDERED: IODIXANOL 320 MG/ML 100 ML VIAL. IART ONE (12:00)
[2016-08-16] MEDS ORDERED: MIDAZOLAM HCL/PF 2 MG/2 ML VIAL. IV ONE (12:00)
[2016-08-16] MEDS ORDERED: fentaNYL PF VIAL 100 MCG/2 ML VIAL IV ONE (12:00)
[2016-08-16] MEDS ORDERED: CONTRAST GIVEN MC PRN (12:00)
[2016-08-16] MEDS ORDERED: NITROGLYCERIN PREMIX 250 ML IV PRN (12:04)
[2016-08-16] MEDS ORDERED: CLOPIDOGREL BISULFATE 75 MG TABLET ONE (12:22)
[2016-08-16] MEDS ORDERED: CLOPIDOGREL BISULFATE 75 MG TABLET PO ONE (12:23)
--- NOTE | 2016-08-16 16:30 | CARD ---
APPROVED REPORT Procedure(s) performed: Coronaries PTCA / STENT To Circumflex HISTORY previous IA: diabetes mellitus with oral treatment, peripheral vascular disease, coronary artery dise ase, chronic lung disease, previous PCI (The PCI date was ), hypertension, previous CABG (The CABG da te was ), dyslipidemia, family history of premature CAD. INDICATION The indication(s) include : non-STEMI . CASE TECHNIQUE During this case, Fluoroscopy and low osmolar contrast were used for imaging. PROCEDURE NARRATIVE After appropriate informed consent the patient was brought to the catheterization laboratory and plac ed supine on the table. The right groin was prepped and draped in usual sterile fashion. Under 2% lid ocaine local anesthesia a 6 Telugu introducer sheath was placed in the right common femoral artery. N ext, a diagnostic JL4 and JR4 catheter were used to perform angiography of the left and right coronar y arteries as well as the left internal mammary artery bypass graft to the LAD. Due to angiographic evidence of a focal 80% mid first obtuse marginal lesion and intervention was the n performed. Coronary findings: LM: Normal angiographic appearance LAD: Large caliber vessel with a proximal to mid 80% stenosis. The distal vessel fills via a patent L SACHIN to LAD and has no significant disease. D1: Small caliber vessel with mild luminal irregularities. D2: Small to moderate caliber vessel with LCx: Large caliber vessel with mild diffuse irregularities of up to 30%. OM1: Large caliber vessel with a proximal to mid focal 80% stenosis. RCA: Known occluded and not injected. Bypass grafts: GUTIERREZ to LAD - Widely patent without anastomotic stenosis. RCFA: Limited angiography reveals mild atherosclerotic plaque with non-flow limited dissections. INTERVENTIONAL TECHNIQUE: Based upon the presented symptoms of chest pain, elevated biomarkers with a troponin of 4.6 and a foc al 80% circumflex stenosis and intervention was performed. Bivalirudin was administered for anticoagu lation. Next EBU 3.5 guide catheter a 0.014 inch pro-water wire was advanced to the distal obtuse mar ginal. Next, a 3.0 x 12 mm balloon was used to angioplasty the lesion at 18 aileen. Next of the lesion w as stented with a 3.25 mm x 18 mm drug-eluting stent at 20 aileen. Post-PCI angiography revealed excelle nt stent expansion. There is mild to moderate diffuse atherosclerotic plaque proximal to the stent an d distal to the stent but given excellent flow and lack of any critical stenosis further intervention was deferred. The right groin sheath was removed with a Mynx Jeronimo device and hemostasis was achieved. The patient received 300 mg of Plavix in addition to the daily Plavix that she had already been give n. Conclusion 1. Three vessel CAD 2. Patent GUTIERREZ to LAD 3. Successful PCI of the LCx with implantation of a Xience 3.25mmx 18 LARA. Recommendations Aggressive Medical Therapy ASA 81mg daily indefinitely Plavix 75mg daily indefinitely if tolerated, but atleast 1 full year.
[2016-08-16] MEDS: HYDROCODONE/APAP 5/325MG TABLET. PO PRN (17:19)
[2016-08-16] MEDS: amLODIPine BESYLATE 5 MG TABLET PO SCH (20:44)
[2016-08-16] MEDS: ATORVASTATIN CALCIUM 40 MG TABLET. PO SCH (20:44)
[2016-08-17] VITALS (7 sets, daily range): BP systolic 118–148; BP diastolic 54–70
[2016-08-17] MEDS: HYDROCODONE/APAP 5/325MG TABLET. PO PRN (02:12)
[2016-08-17] MEDS: IV NORMAL SALINE 1000ML BAG 1,000 ML IV SCH (03:37)
[2016-08-17] MEDS: SOTALOL 80 MG TABLET. PO SCH ×2 (06:04→18:38)
--- NOTE | 2016-08-17 08:30 | PDOC ---
Provider Note Provider Note sleeping, vss, no new problems- still on heparin- labs ok- remains in nsr w/ higher dose sotalol- plan based on cath result CHRISTINA ROSENBAUM MD Aug 17, 2016 08:30
[2016-08-17] MEDS: FUROSEMIDE 40 MG TABLET. PO SCH (08:44)
[2016-08-17] MEDS: CHOLECALCIFEROL (VITAMIN D3) 1,000 UNIT TABLET PO SCH (08:45)
[2016-08-17] MEDS: CLOPIDOGREL BISULFATE 75 MG TABLET PO SCH (08:45)
[2016-08-17] MEDS: ASPIRIN CHEWABLE 81 MG TABLET. PO SCH (08:45)
[2016-08-17] MEDS: CYANOCOBALAMIN (VITAMIN B-12) 1,000 MCG TABLET. PO SCH (08:45)
[2016-08-17] MEDS: OMEGA-3 FATTY ACIDS/FISH OIL 1,000 MG CAPSULE. PO SCH (08:46)
[2016-08-17] MEDS: GLIMEPIRIDE 2 MG TABLET. PO SCH (08:46)
--- NOTE | 2016-08-17 09:25 | PDOC ---
GOPI HERNANDEZ SPINNING MULE TENDER 08/17/16 0925: CARDIO Progress Notes Date and Time Date of Service 08/17/2016 Time of Evaluation 1000 Subjective Subjective: No Chest Pain, No shortness of breath, No Palpitations, No Dizziness, Other ([place] [facility] [place] Vitals Vitals Vital Signs Date Time Temp Pulse Resp B/P Pulse Ox O2 Delivery O2 Flow Rate FiO2 08/17/16 09:03 98.3 50 18 133/56 93 Room Air 98.3 Weight Weight [ ] Input and Output Intake and Output Intake and Output 08/17/16 07:00 Intake Total 650 ml Output Total 1000 ml Balance -350 ml Intake Oral 650 ml Output Urine Total 1000 ml Physical Exam HEENT: Neck Supple W Full Motion Chest: Symmetric LUNGS: Clear to Auscultation Heart: S1S2, RRR (SR/SB) Abdomen: Soft N/T Extremities: No Calf Tenderness, Other (LAKA and RLE with 1-2+ pitting edema) Neurology: alert, oriented, follow commands Other Exams right groin arteriotomy site intact without swelling and erythema, neurovascular status to [facility] LE intact Assessment Assessment 1. NSTEMI: S/P PCI/LARA to LCx 08/16/2016 2. CAD: CABG/stents in the past. stable. 3. PAFIB: currently SR/SB, slowest at high 40s which is likely from added NTG drip. 4. Polyvalvular insufficiency: notable for moderate to severe with mod AI. 5. Chronic diastolic CHF: EF 60-65%, normal wall motion. Compensated 6. PAD: recent RSFA percutaneous revascularization. stable 7. Accelerated HTN: improved 8. DM2/HLP: Stopped taking amaryl 2 weeks ago. Defer to PCP 9. 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 Hypomagnesemia 11. FRANTZ on CKD3: improved Recommendations 1. Continue with DAPT ASA/plavix. Anticipate DC this afternoon pending BP/HR control. 2. Resume eliquis tonight 3. Continue with sotalol and current home regimen. DC NTG drip. Continue on home imdur. 4. With ANNA will not resume lisinopril and will consider on hydralazine if BP trends high. 5. Replace Mg 6. BMP 7. F/U in office in 4 weeks. 8. Post cath instructions. WILLI LINDSEY MD 08/17/16 1556: CARDIO Progress Notes Assessment Assessment Patient seen and examined. Agree with SLITTER AND REWINDER's assessment and plan. s/p PCI/stent to LCx, stable and chest pain-free. Continue dual antiplatelet therapy. Possible discharge home later today if blood pressure better controlled. Follow-up with our office in 1 month. GOPI HERNANDEZ APRN Aug 17, 2016 09:25 WILLI LINDSEY MD Aug 17, 2016 15:56
[2016-08-17 09:36] LABS: CALCIUM 8.4 mg/dL (8.5-10.1); CREATININE 1.3 mg/dL (0.6-1.0); GFR 40.6; MAGNESIUM 1.3 mg/dL (1.8-2.4); POTASSIUM 4.3 mmol/L (3.5-5.1)
[2016-08-17] MEDS: ISOSORBIDE MONONITRATE ER 60 MG TAB.ER.24H. PO SCH (09:50)
[2016-08-17] MEDS ORDERED: APIXABAN 5 MG TABLET. PO SCH (10:30)
[2016-08-17] MEDS: MAGNESIUM SULFATE 2GM 50 ML IV ONE ×2 (11:30→11:59)
[2016-08-17] MEDS ORDERED: hydrALAZINE 25 MG TABLET PO SCH (14:00)
[2016-08-17] MEDS ORDERED: SOTA80TA48 PO (18:17)
--- NOTE | 2016-08-17 22:49 | DS ---
DATE OF DISCHARGE: 08/17/2016 HOSPITAL SUMMARY: A 70-year-old white female with known history of coronary artery disease and atrial fibrillation, came in atrial fibrillation with rapid ventricular response and chest pain. She had an elevation of troponin of 6.0 and all other labs were within normal limits. She was taken to the cardiac cath lab technologist and stent was placed ____ of the LAD. She is doing well and be able to be discharged at this time. She has remained in sinus rhythm throughout the hospital stay. FINAL DIAGNOSES: 1. Acute non-ST elevated myocardial infarction. 2. Atrial fibrillation with rapid ventricular response, resolved. OPERATIONS, PROCEDURES, COMPLICATIONS: None. CONSULTATIONS: Dr. Perales. OPERATIONS AND PROCEDURES: Cardiac catheterization and single coronary artery stent placement. COMPLICATIONS: None. DISPOSITION: She will stop lisinopril regarding renal artery stenosis and continue aspirin and Eliquis and her sotalol has been increased already to 80 mg twice a day. Rest of medications remain the same. Cardiac and diabetic diet restrictions. ACTIVITY: As tolerated. I will see her in routine followup. PROGNOSIS: Guarded. CHRISTINA ROSENBAUM MD DR: AVNI/concetta JOB#: [id number] / [id number]
[2016-08-18] MEDS ORDERED: CLOPIDOGREL BISULFATE 75 MG TABLET PO SCH (08:00)
== END 2016-08-17 18:52 | disposition home or self-care (01) | DRG 247 ==
LOC: ER 13:12 → 2 SOUTH 14:00
PROVIDERS: ADMIT Family Medicine; ATTEND Family Medicine
PROC: 027034Z Dilation of Coronary Artery, One Artery with Drug-eluting Intraluminal Device, Percutaneous Approach (ICD-10-PCS; principal; 2016-08-16)
PROC: 4A023N7 Measurement of Cardiac Sampling and Pressure, Left Heart, Percutaneous Approach (ICD-10-PCS; 2016-08-16)
DX: I21.4 Non-ST elevation (NSTEMI) myocardial infarction (principal); N17.9 Acute kidney failure, unspecified; I13.0 Hypertensive heart and chronic kidney disease with heart failure and stage 1 through stage 4 chronic kidney disease, or unspecified chronic kidney disease; I50.32 Chronic diastolic (congestive) heart failure; I48.0 Paroxysmal atrial fibrillation; E11.22 Type 2 diabetes mellitus with diabetic chronic kidney disease; E11.51 Type 2 diabetes mellitus with diabetic peripheral angiopathy without gangrene; E78.00 Pure hypercholesterolemia, unspecified; E78.5 Hyperlipidemia, unspecified; E83.42 Hypomagnesemia; I25.10 Atherosclerotic heart disease of native coronary artery without angina pectoris; I48.91 Unspecified atrial fibrillation; N18.3 Chronic kidney disease, stage 3 (moderate); G56.01 Carpal tunnel syndrome, right upper limb; M19.90 Unspecified osteoarthritis, unspecified site; Z88.1 Allergy status to other antibiotic agents; Z82.49 Family history of ischemic heart disease and other diseases of the circulatory system; Z89.612 Acquired absence of left leg above knee; Z95.1 Presence of aortocoronary bypass graft; I25.2 Old myocardial infarction; Z99.3 Dependence on wheelchair; Z98.61 Coronary angioplasty status; Z88.0 Allergy status to penicillin; Z88.8 Allergy status to other drugs, medicaments and biological substances
CPT/HCPCS: 36415; 71010; 80048; 80053; 80061; 82947; 83735; 83880; 84443; 84484; 85027; 85520; 85610; 87324; 92928; 93005; 93306; 93454; 96374; 96375; C1725; C1769; C1771; C1874; C1887; C1892; G0269; G0481; J0360; J0583; J2250; J2405; J3010; J3490; J7030; J7060; 99285-25

== ENCOUNTER 2016-09-04 12:47 | Inpatient (IN) | payer MEDICARE, OTHER ==
[~2016-09-04] VITALS: Ht 170.2 cm; Wt 91.3 kg
--- NOTE | 2016-09-04 13:18 | PHYS DOC ---
Past Medical History Past Medical History: CAD, Diabetes-Type II, High Cholesterol, Hypertension, Other Additional Past Medical Histor: carpal tunnel Past Surgical History: Coronary Bypass Surgery, Other Additional Past Surgical Histo: LEFT AKA; right carpal tunnel release Alcohol Use: None Drug Use: None Adult General Chief Complaint Chief Complaint: DIZZY/LIGHT HEADED HPI HPI Patient is a 71 year old female presenting to the emergency department for evaluation of dizziness. Patient says that she has felt dizzy since waking up this morning and it does not feel like room spinning or passing out sensation rather she just feels that her head is floating. She says she has been having some right shoulder pain since last night but no shortness of breath diaphoresis nausea vomiting or systemic symptoms. Patient says that she took all of her medications as prescribed today. She is in no obvious distress. Review of Systems Review of Systems Constitutional: Denies fever or chills [] Eyes: Denies change in visual acuity, redness, or eye pain [] HENT: Denies nasal congestion or sore throat [] Respiratory: Denies cough or shortness of breath [] Cardiovascular: No additional information not addressed in HPI [] GI: Denies abdominal pain, nausea, vomiting, bloody stools or diarrhea [] : Denies dysuria or hematuria [] Musculoskeletal: Denies back pain or joint pain [] Integument: Denies rash or skin lesions [] Neurologic: Denies headache, focal weakness. +dizziness Current Medications Current Medications Current Medications Medications (Trade) Dose Ordered Sig/Shilo Start Time Stop Time Status Last Admin Dose Admin Acetaminophen/ Hydrocodone Bitart (Lortab 5/325) 2 tab 1X ONCE 09/04/16 20:00 09/04/16 20:01 Amlodipine Besylate (Norvasc) 10 mg 1X ONCE 09/04/16 15:15 09/04/16 15:16 DC 09/04/16 15:28 10 MG Hydralazine HCl (Apresoline) 10 mg PRN Q1HR PRN 09/04/16 17:45 Morphine Sulfate 5 mg 1X ONCE 09/04/16 18:15 09/04/16 18:16 DC 09/04/16 18:04 5 MG Ondansetron HCl (Zofran) 4 mg PRN Q8HRS PRN 09/04/16 17:45 09/05/16 17:44 Sodium Chloride 500 ml @ 500 mls/hr 1X ONCE 09/04/16 15:15 09/04/16 16:14 DC 09/04/16 15:49 500 MLS/HR Sotalol HCl (Betapace) 40 mg 1X STAT 09/04/16 15:31 09/04/16 15:33 DC 09/04/16 15:44 40 MG Allergies Allergies Allergies Coded Allergies Type Severity Reaction Last Updated Verified Penicillins Allergy Intermediate 01/05/16 Yes bacitracin Allergy Intermediate 01/05/16 Yes ciprofloxacin Allergy Intermediate 11/02/13 Yes erythromycin base Allergy Intermediate 01/05/16 Yes neomycin Allergy Intermediate 01/05/16 Yes niacin Allergy Intermediate 04/14/14 Yes polymyxin B Allergy Intermediate 11/02/13 Yes Physical Exam Physical Exam Constitutional: Well developed, well nourished, no acute distress, non-toxic appearance. [] HENT: Normocephalic, atraumatic, bilateral external ears normal, oropharynx moist, no oral exudates, nose normal. [] Eyes: PERRLA, EOMI, conjunctiva normal, no discharge. [] Neck: Normal range of motion, no tenderness, supple, no stridor. [] Cardiovascular:Heart rate bradycardic regular rhythm, no murmur [] Lungs & Thorax: Bilateral breath sounds clear to auscultation [] Abdomen: Bowel sounds normal, soft, no tenderness, no masses, no pulsatile masses. [] Skin: Warm, dry, no erythema, no rash. [] Back: No tenderness, no CVA tenderness. [] Extremities: No tenderness, no cyanosis, no clubbing, ROM intact, no edema. [] Neurologic: Alert and oriented X 3, normal motor function, normal sensory function, no focal deficits noted. [] Current Patient Data Vital Signs Vital Signs Date Time Temp Pulse Resp B/P (MAP) Pulse Ox O2 Delivery O2 Flow Rate FiO2 09/04/16 19:11 200/80 (120) 09/04/16 18:16 62 15 95 Room Air 09/04/16 13:25 98.5 98.5 Lab Values Laboratory Tests Test 09/04/16 13:44 09/04/16 14:15 Urine Collection Type Unknown Urine Color Yellow Urine Clarity Clear Urine pH 6.0 Urine Specific [place] >=1.030 Urine Protein >=300 mg/dL (NEG-TRACE) Urine Glucose (UA) 100 mg/dL (NEG) Urine Ketones (Stick) Negative mg/dL (NEG) Urine Blood Moderate (NEG) Urine Nitrite Negative (NEG) Urine Bilirubin Negative (NEG) Urine Urobilinogen Dipstick 0.2 mg/dL (0.2 mg/dL) Urine Leukocyte Esterase Small (NEG) Urine RBC 11-20 /HPF (0-2) Urine WBC >40 /HPF (0-4) Urine Squamous Epithelial Cells Few /LPF Urine Bacteria Few /HPF (0-FEW) Urine Hyaline Casts Few /HPF White Blood Count 9.1 x10^3/uL (4.0-11.0) Red Blood Count 4.05 x10^6/uL (3.50-5.40) Hemoglobin 11.7 g/dL (12.0-15.5) L Hematocrit 34.1 % (36.0-47.0) L Mean Corpuscular Volume 84 fL (79-100) Mean Corpuscular Hemoglobin 29 pg (25-35) Mean Corpuscular Hemoglobin Concent 34 g/dL (31-37) Red Cell Distribution Width 14.5 % (11.5-14.5) Platelet Count 334 x10^3/uL (140-400) Neutrophils (%) (Auto) 62 % (31-73) Lymphocytes (%) (Auto) 24 % (24-48) Monocytes (%) (Auto) 10 % (0-9) H Eosinophils (%) (Auto) 3 % (0-3) Basophils (%) (Auto) 1 % (0-3) Neutrophils # (Auto) 5.7 x10^3uL (1.8-7.7) Lymphocytes # (Auto) 2.2 x10^3/uL (1.0-4.8) Monocytes # (Auto) 0.9 x10^3/uL (0.0-1.1) Eosinophils # (Auto) 0.2 x10^3/uL (0.0-0.7) Basophils # (Auto) 0.1 x10^3/uL (0.0-0.2) Sodium Level 140 mmol/L (136-145) Potassium Level 4.3 mmol/L (3.5-5.1) Chloride Level 105 mmol/L (98-107) Carbon Dioxide Level 31 mmol/L (21-32) Anion Gap 4 (6-14) L Blood Urea Nitrogen 14 mg/dL (7-20) Creatinine 1.3 mg/dL (0.6-1.0) H Estimated GFR (Cockcroft-Gault) 40.5 BUN/Creatinine Ratio 11 (6-20) Glucose Level 169 mg/dL (70-99) H Calcium Level 8.4 mg/dL (8.5-10.1) L Magnesium Level 1.6 mg/dL (1.8-2.4) L Total Bilirubin 0.6 mg/dL (0.2-1.0) Aspartate Amino Transferase (AST) 21 U/L (15-37) Alanine Aminotransferase (ALT) 21 U/L (14-59) Alkaline Phosphatase 77 U/L (46-116) Creatine Kinase 64 U/L (26-192) Troponin I Quantitative 0.060 ng/mL (0.000-0.055) TP-Hsm-W-Type Natriuretic Peptide 3656 pg/mL (0-124) H Total Protein 5.6 g/dL (6.4-8.2) L Albumin 2.4 g/dL (3.4-5.0) L Albumin/Globulin Ratio 0.8 (1.0-1.7) L Laboratory Tests 09/04/16 14:15 Laboratory Tests 09/04/16 14:15 EKG EKG Sinus bradycardia at 53 bpm with leftward axis incomplete right bundle branch block with inverted T waves in leads V1 through V4. Radiology/Procedures Radiology/Procedures [] Course & Med Decision Making Course & Med Decision Making Patient with nonspecific dizziness and right shoulder pain in the setting of quite elevated blood pressure. She was initially given Norvasc and her sotalol that she has not been taking the full 80 mg as prescribed. Blood pressure improved and she was feeling much better however her labs are coming back abnormal including an elevated troponin and BNP. She likely does have demand ischemia from her hypertension however troponin still could be coming down from her coronary event several weeks ago. Given patient is symptomatic with abnormal workup she will be admitted for further observation and treatment. Dragon Disclaimer Dragon Disclaimer This electronic medical record was generated, in whole or in part, using a voice recognition dictation system. Departure Departure Impression: Primary Impression: Hypertensive emergency Additional Impressions: Elevated troponin I level Elevated brain natriuretic peptide (BNP) level Dizziness Disposition: 09 ADMITTED INPATIENT Admitting Physician: Andrew Pritchard Condition: STABLE Referrals: ANDREW PRITCHARD MD (PCP) Problem Qualifiers ANDREW JONES DO September 04, 2016 13:18
[2016-09-04] MEDS ORDERED: IV NORMAL SALINE 500ML BAG 500 ML IV ONE ×2 (13:30→15:15)
[2016-09-04 14:06] LABS: BILIRUBIN,URINE NEGATIVE (NEG); GLUCOSE,URINE 100 mg/dL (NEG); NITRITE,URINE NEGATIVE (NEG); PROTEIN,URINE >=300 mg/dL (NEG-TRACE); UROBILINOGEN,URINE 0.2 mg/dL (0.2 mg/dL)
[2016-09-04 14:30] LABS: BASO # 0.1 x10^3/uL (0.0-0.2); BASO % 1 % (0-3); EOS % 3 % (0-3); HEMATOCRIT 34.1 % (36.0-47.0); HEMOGLOBIN 11.7 g/dL (12.0-15.5); LYMPH # 2.2 x10^3/uL (1.0-4.8); LYMPH % 24 % (24-48); MEAN CORPUSCULAR HEMOGLOBIN 29 pg (25-35); MEAN CORPUSCULAR HGB CONC 34 g/dL (31-37); MEAN CORPUSCULAR VOLUME 84 fL (79-100); MONO % 10 % (0-9); NEUT % 62 % (31-73); PLATELET COUNT 334 x10^3/uL (140-400); RED BLOOD COUNT 4.05 x10^6/uL (3.50-5.40); RED CELL DISTRIBUTION WIDTH 14.5 % (11.5-14.5); WHITE BLOOD COUNT 9.1 x10^3/uL (4.0-11.0)
[2016-09-04 14:31] LABS: BACTERIA,URINE FEW /HPF (0-FEW); SQUAMOUS EPITHELIAL CELL,UR FEW /LPF; WBC,URINE >40 /HPF (0-4)
[2016-09-04 14:36] LABS: CALCIUM 8.4 mg/dL (8.5-10.1); CREATININE 1.3 mg/dL (0.6-1.0); GFR 40.5; POTASSIUM 4.3 mmol/L (3.5-5.1)
[2016-09-04 14:42] LABS: ALBUMIN 2.4 g/dL (3.4-5.0); ALBUMIN/GLOBULIN RATIO 0.8 (1.0-1.7); MAGNESIUM 1.6 mg/dL (1.8-2.4); TOTAL BILIRUBIN 0.6 mg/dL (0.2-1.0); TOTAL PROTEIN 5.6 g/dL (6.4-8.2)
[2016-09-04] MEDS ORDERED: amLODIPine BESYLATE 5 MG TABLET PO ONE (15:15)
--- NOTE | 2016-09-04 15:17 | EKG ---
[facility] [address] [place] [address] Test Date: 2016-09-04 Test Time: 13:28:01 Pat Name: MARISA RIOJAS Department: Room: Gender: F [employer] Operator: : [id number] Requested By: CHRISTINA JONES Order Number: [id number] Reading MD: Bhupendra Kemp Measurements Intervals [place] Rate: 53 P: -65 CA: 148 QRS: -11 QRSD: 126 T: 28 QT: 482 QTc: 459 Interpretive Statements SR RBBB NON-SPECIFIC ST/T CHANGES Electronically Signed On 09-10-2016 9:08:49 CDT by Bhupendra Kemp
[2016-09-04] MEDS ORDERED: SOTALOL 80 MG TABLET. PO STA (15:31)
[2016-09-04] MEDS ORDERED: hydrALAZINE 20 MG/ML VIAL. IVP ONE (17:30)
[2016-09-04] MEDS ORDERED: ONDANSETRON PF 4 MG/2 ML VIAL. IV PRN (17:45)
[2016-09-04] MEDS ORDERED: MORPHINE SULFATE 10 MG/ML VIAL. IV ONE (18:15)
[2016-09-04] MEDS ORDERED: HYDROcodone/APAP 5/325MG 1 TAB TABLET PO ONE ×2 (19:30→20:00)
[2016-09-04] MEDS: hydrALAZINE 20 MG/ML VIAL. IVP PRN ×2 (19:54→21:29)
[2016-09-04] MEDS ORDERED: LISINOPRIL 5 MG TABLET. PO SCH (21:00)
[2016-09-04] MEDS: PANTOPRAZOLE 40 MG TABLET.DR. PO SCH (21:28)
[2016-09-04 22:02] VITALS: BP 217/69
[2016-09-04] MEDS: SOTALOL 80 MG TABLET. PO SCH (22:30)
[2016-09-04] MEDS: ATORVASTATIN CALCIUM 40 MG TABLET. PO SCH (22:30)
[2016-09-04 23:15] VITALS: BP 183/90
[2016-09-05] MEDS: hydrALAZINE 20 MG/ML VIAL. IVP PRN ×3 (00:05→06:44)
--- NOTE | 2016-09-05 00:36 | ACF ---
Admission Forms Criteria HYPERTENSION Clinical Indications for Admission to Inpatient Care ( Place "X" for any and all applicable criteria): Admission is indicated for ANY ONE of the following(1)(2)(3)(4): [ ]I. Hypertensive emergency, with evidence of acute and progressing target organ disease as indicated by ANY ONE of the following: [ ]a) Hypertensive encephalopathy (eg, confusion, altered mental status) [ ]b) Cerebral infarction [ ]c) Intracranial hemorrhage [ ]d) Myocardial ischemia or infarction [ ]e) Pulmonary edema [ ]f) Aortic dissection [ ]g) Seizure [ ]h) Acute renal insufficiency [ ]i) Papilledema [ ]j) Microangiopathic hemolytic anemia [ ]II. Adrenergic crisis (eg, severe hypertension due to pheochromocytoma crisis, cocaine or amphetamine intoxication, or clonidine withdrawal) [X]III. Severe hypertension (SBP greater than 180 mmHg or DBP greater than 110 mmHg or greater than the 95th percentile for age, gender, and height in pediatric patients) that cannot be controlled (eg, to SBP less than 160 mmHg and DBP less than 100 mmHg in adults) by treatment with oral medication in emergency department or observation care Extended stay beyond goal length of stay may be needed for(11)(12)(13): [ ]a) Persistent hypertensive encephalopathy [ ]b) Continuation of pulmonary edema [ ]c) Recurring or persistent severe hypertension [ ]d) Target organ damage (eg, angina, stroke, aortic dissection) [ ]e) Associated renal insufficiency The original [facility] content created by [employer] has been revised. The portions of the content which have been revised are identified through the use of italic text or in bold, and [facility] has neither reviewed nor approved the modified material. All other unmodified content is copyright [facility] [employer]. Please see references footnoted in the original [facility] edition 2016 Admission Criteria Met?: Yes GIRMA JOHN September 05, 2016 00:36
[2016-09-05 03:56] VITALS: BP 143/53
[2016-09-05] MEDS: HYDROcodone/APAP 5/325MG 1 TAB TABLET PO PRN (05:18)
[2016-09-05 07:00] VITALS: BP 143/53
--- NOTE | 2016-09-05 08:40 | PDOC ---
Provider Note Provider Note labile bp- will inc acei , change lasix to hctz as ef is good- has bilat RA stents so will follow renalfx w/ acei [id number] CHRISTINA ROSENBAUM MD September 05, 2016 08:40
--- NOTE | 2016-09-05 08:43 | PDOC ---
Provider Note Provider Note last carotid sono 2013 so will repeat re known stenosis- has atrophic R kidney per doppler 2015, will follow renal fx on acei, may not tolerate- will add aldactone and more norvasc prn CHRISTINA ROSENBAUM MD September 05, 2016 08:43
[2016-09-05] MEDS ORDERED: APIXABAN 5 MG TABLET. PO PRN (09:00)
[2016-09-05] MEDS ORDERED: amLODIPine BESYLATE 5 MG TABLET PO SCH (09:00)
[2016-09-05] MEDS ORDERED: FUROSEMIDE 40 MG TABLET. PO SCH (09:00)
[2016-09-05] MEDS ORDERED: SOTALOL 80 MG TABLET. PO SCH (09:00)
[2016-09-05] MEDS: CLOPIDOGREL BISULFATE 75 MG TABLET PO SCH (09:01)
[2016-09-05] MEDS: PANTOPRAZOLE 40 MG TABLET.DR. PO SCH (09:01)
[2016-09-05] MEDS: SOTALOL 80 MG TABLET. PO SCH ×2 (09:02→21:34)
[2016-09-05] MEDS: OMEGA-3 FATTY ACIDS/FISH OIL 1,000 MG CAPSULE. PO SCH (09:03)
[2016-09-05] MEDS: ISOSORBIDE MONONITRATE ER 60 MG TAB.ER.24H. PO SCH (09:04)
[2016-09-05] MEDS: CHOLECALCIFEROL (VITAMIN D3) 1,000 UNIT TABLET PO SCH (09:05)
[2016-09-05] MEDS: ASPIRIN CHEWABLE 81 MG TABLET. PO SCH (09:05)
[2016-09-05] MEDS: ASCORBIC ACID 500 MG TABLET PO SCH (09:05)
[2016-09-05] MEDS: CYANOCOBALAMIN (VITAMIN B-12) 1,000 MCG TABLET. PO SCH (09:06)
[2016-09-05 09:29] LABS: BASO # 0.1 x10^3/uL (0.0-0.2); BASO % 1 % (0-3); EOS % 1 % (0-3); HEMATOCRIT 33.7 % (36.0-47.0); HEMOGLOBIN 11.8 g/dL (12.0-15.5); LYMPH # 1.6 x10^3/uL (1.0-4.8); LYMPH % 16 % (24-48); MEAN CORPUSCULAR HEMOGLOBIN 30 pg (25-35); MEAN CORPUSCULAR HGB CONC 35 g/dL (31-37); MEAN CORPUSCULAR VOLUME 84 fL (79-100); MONO % 11 % (0-9); NEUT % 71 % (31-73); PLATELET COUNT 335 x10^3/uL (140-400); RED BLOOD COUNT 4.02 x10^6/uL (3.50-5.40); RED CELL DISTRIBUTION WIDTH 15.1 % (11.5-14.5); WHITE BLOOD COUNT 10.1 x10^3/uL (4.0-11.0)
[2016-09-05 09:59] LABS: CALCIUM 8.3 mg/dL (8.5-10.1); CREATININE 1.6 mg/dL (0.6-1.0); GFR 31.9; POTASSIUM 3.7 mmol/L (3.5-5.1)
[2016-09-05] MEDS ORDERED: LISINOPRIL 5 MG TABLET. PO SCH (10:00)
--- NOTE | 2016-09-05 10:48 | RAD ---
Indication: Uncontrolled hypertension. Grayscale, color-flow and duplex Doppler evaluation of both carotid systems was performed. There is moderate plaque identified in both carotid systems. Peak systolic velocity in the right common carotid artery is 165 cm/s. Peak systolic velocity left common carotid artery is 251 cm/s. Peak ICA velocity on the right is 185 cm/s. Peak ICA velocity on the left is 207 cm/s. Due to elevations in the common carotid arteries, the ICA to CCA ratios are artificially low, measuring 1.1 on the right and 1.1 on the left. Both vertebral arteries show antegrade flow. Incidental note is made of a large complex solid mass in the left lobe of the thyroid measuring approximately 3 cm x 2 cm. Impression: Moderate bilateral carotid plaque. There are elevated velocities in both common and internal carotid arteries, as described above. Velocities are consistent consistent with a moderate degree of stenosis measuring 50-69%. Solid mass left lobe of the thyroid, as described. Dedicated thyroid ultrasound could be performed for further evaluation.
[2016-09-05 10:54] VITALS: BP 139/60
--- NOTE | 2016-09-05 11:09 | HP ---
ADMIT DATE: 09/04/2016 CHIEF COMPLAINT: Headache. HISTORY OF PRESENT ILLNESS: A 71-year-old white female with recent LAD stenting, history of coronary artery disease and diffuse vascular disease. She came in, not with chest pain, but with some headache and pressure in her head and neck and high blood pressures at home. Lisinopril had been stopped from last admission after some increase in creatinine was noted and she was taking amlodipine, Isordil, and Lasix that she takes at home. She is also on sotalol for prevention of atrial fibrillation. She has no other specific complaints at this time. ALLERGIES: PENICILLINS, CIPRO, AND ERYTHROMYCIN NOTED. PAST MEDICAL HISTORY: She has had coronary stents in the past as well as bilateral renal artery stents, each placed at different times in the past; one by and one by Dr. Heredia per her history. SOCIAL HISTORY: Quit smoking years ago. She lives with her son and she is currently living with the relative recently evicted. Nondrinker. FAMILY HISTORY: Unremarkable. REVIEW OF SYSTEMS: No other specific complaints. OBJECTIVE: ENT: All within normal limits. NECK: Loud bilateral carotid bruits, left greater than right. No masses are noted. No thyroid enlargement is noted. LUNGS: Clear. CARDIOVASCULAR: She has a grade 2-3 systolic murmur over the aortic valve, otherwise unremarkable. No S3 is heard. EXTREMITIES: Left BKA amputation is noted. Decreased pedal pulses on the right. No edema. NEUROLOGIC: Physiologic. ASSESSMENT: Accelerated hypertension despite multiple medicines. She does have diffuse vascular disease and recent history of coronary artery stenting and prior stenting. PLAN: We will resume lisinopril and see if renal function tolerates. We will change Lasix to hydrochlorothiazide for better blood pressure control as her ejection fraction was normal. The bilateral carotid bruits apparently have been interrogated with Dopplers in the recent past, may not be redone at this time. CHRISTINA ROSENBAUM MD DR: AVNI/concetta JOB#: [id number] / [id number]
[2016-09-05] MEDS: hydroCHLOROthiazide 12.5 MG CAPSULE PO SCH (11:33)
[2016-09-05] MEDS: MULTIVITAMIN with MINERAL TABLET. PO SCH (11:37)
--- NOTE | 2016-09-05 11:46 | PDOC2 ---
GOPI HERNANDEZ COURTESY CAR DRIVER 09/05/16 1146: CARDIAC CONSULT DATE OF CONSULT Date of Consult DATE: 09/05/16 TIME: 11:34 REASON FOR CONSULT Reason for Consult: elevated troponin REFERRING PHYSICIAN Referring Physician: Cristian SOURCE Source: Chart review, Patient HISTORY OF PRESENT ILLNESS HISTORY OF PRESENT ILLNESS This is a pleasant 71 yo female admitted for complains of dizziness. Reports that her SBP at home was in the 200s and at that time she was also having some dizziness. Reports that she was also having right shoulder pain. In the last few days she also noted that her SOA increased and slightly increased swelling to her RLE and orthopnea. Denies any CP, palpitations, nausea. Verbalized compliance with her medications. No recent falls or injury. She is baseline sedentary with limited mobility due to deconditioning and left leg amputation. She is WC bound. PAST MEDICAL HISTORY Past Medical History Cardiovascular: AFIB, CAD (with CABG - 2008 and PCI/stent to left main), HTN, Hyperlipidemia, Other (PVD with stent to right SFA and stents to bilateral renal arteries), mild to mod AI Pulmonary: No pertinent hx CENTRAL NERVOUS SYSTEM: Other (none) GI: No pertinent hx Heme/Onc: No pertinent hx Hepatobiliary: No pertinent hx Psych: No pertinent hx Musculoskeletal: Osteoarthritis Rheumatologic: No pertinent hx Infectious disease: No pertinent hx ENT: No pertinent hx Renal/: Chronic renal insuff, Right renal artery showed 100% chronic occlusion within the stent in the proximal segment. Left renal artery showed 30 % in-stent restenosis within the stent in the proximal segment. Endocrine: Diabetes (type II) Dermatology: No pertinent hx PAST SURGICAL HISTORY Past Surgical History CABG (2008), Other (ectopic ; left AK[facility] from [facility]; left hip surgery), 2015 renal and femoral angiogram, 03/2016 Orbital atherectomy/balloon COMPOUNDING TECHNICIAN/stent placement to the right superficial femoral artery, 07/2016 PCI/LARA to LCx FAMILY HISTORY Family History: Coronary Artery Disease SOCIAL HISTORY Social History Smoke: Quit (2008) ALCOHOL: none Drugs: None CURRENT MEDICATIONS CURRENT MEDICATIONS Current Medications Medications (Trade) Dose Ordered Sig/Shilo Route PRN Reason Start Time Stop Time Status Last Admin Dose Admin Sodium Chloride 500 ml @ 500 mls/hr 1X ONCE IV 09/04/16 13:30 09/04/16 14:29 DC 09/04/16 14:26 Sodium Chloride 500 ml @ 500 mls/hr 1X ONCE IV 09/04/16 15:15 09/04/16 16:14 DC 09/04/16 15:49 Amlodipine Besylate (Norvasc) 10 mg 1X ONCE PO 09/04/16 15:15 09/04/16 15:16 DC 09/04/16 15:28 Sotalol HCl (Betapace) 40 mg 1X STAT PO 09/04/16 15:31 09/04/16 15:33 DC 09/04/16 15:44 Hydralazine HCl (Apresoline) 10 mg 1X ONCE IVP 09/04/16 17:30 09/04/16 17:31 DC 09/04/16 17:36 Hydralazine HCl (Apresoline) 10 mg PRN Q1HR PRN IVP ELEVATED BP, SEE COMMENTS 09/04/16 17:45 09/05/16 06:44 Morphine Sulfate 5 mg 1X ONCE IV 09/04/16 18:15 09/04/16 18:16 DC 09/04/16 18:04 Acetaminophen/ Hydrocodone Bitart (Lortab 5/325) 2 tab 1X ONCE PO 09/04/16 19:30 09/04/16 19:32 DC 09/04/16 19:51 Lisinopril (Prinivil) 5 mg BID PO 09/04/16 21:00 09/05/16 08:35 DC 09/04/16 20:56 Pantoprazole Sodium (Protonix) 40 mg DAILYAC PO 09/04/16 21:15 09/05/16 09:01 Amlodipine Besylate (Norvasc) 5 mg DAILY PO 09/05/16 09:00 09/05/16 09:05 Aspirin (Children'S Aspirin) 81 mg DAILY PO 09/05/16 09:00 09/05/16 09:05 Clopidogrel Bisulfate (Plavix) 75 mg DAILY PO 09/05/16 09:00 09/05/16 09:01 Acetaminophen/ Hydrocodone Bitart (Lortab 5/325) 2 tab PRN Q6HRS PRN PO PAIN 09/04/16 22:15 09/05/16 05:18 Sotalol HCl (Betapace) 80 mg BID PO 09/04/16 22:30 09/05/16 09:02 Ascorbic Acid (Vitamin C) 500 mg DAILY PO 09/05/16 09:00 09/05/16 09:05 Vitamin D (Vitamin D3) 2,000 unit DAILY PO 09/05/16 09:00 09/05/16 09:05 Cyanocobalamin (Vitamin B-12) 5,000 mcg DAILY PO 09/05/16 09:00 09/05/16 09:06 Isosorbide Mononitrate (Imdur) 120 mg DAILY PO 09/05/16 09:00 09/05/16 09:04 Fish Oil (Fish Oil) 2,000 mg DAILY PO 09/05/16 09:00 09/05/16 09:03 Lisinopril (Prinivil) 20 mg DAILY10 PO 09/05/16 10:00 09/05/16 09:09 ALLERGIES ALLERGIES: Coded Allergies: Penicillins (Verified Allergy, Intermediate, 01/05/16) bacitracin (Verified Allergy, Intermediate, 01/05/16) ciprofloxacin (Verified Allergy, Intermediate, 11/02/13) erythromycin base (Verified Allergy, Intermediate, 01/05/16) neomycin (Verified Allergy, Intermediate, 01/05/16) niacin (Verified Allergy, Intermediate, 04/14/14) polymyxin B (Verified Allergy, Intermediate, 11/02/13) ROS Review of System 14 point ROS evaluated with pertinent positives noted per HPI PHYSICAL EXAM General: Alert, Oriented X3, Cooperative, No acute distress HEENT: Atraumatic, Mucous membr. moist/pink Lungs: Clear to auscultation Heart: Regular rate (SR), Normal S1, Normal S2, Other (3/6 systolic murmur LLS border) Abdomen: Soft, Other (obese) Extremities: No cyanosis, Other (2-3+ RLE edema) Skin: No breakdown, No significant lesion Neuro: Normal speech, Sensation intact Psych/Mental Status: Mental status NL, Mood NL MUSCULOSKELETAL: Osteoarthritic changes both hands, Other (LAKA) VITALS VITALS Vital Signs Date Time Temp Pulse Resp B/P (MAP) Pulse Ox O2 Delivery O2 Flow Rate FiO2 09/05/16 10:54 98.4 63 18 139/60 (86) 97 Room Air 98.4 LABS Lab: Laboratory Tests Test 09/04/16 13:44 09/04/16 14:15 09/04/16 23:30 09/05/16 08:45 Urine Collection Type Unknown Urine Color Yellow Urine Clarity Clear Urine pH 6.0 Urine Specific [place] >=1.030 Urine Protein >=300 mg/dL (NEG-TRACE) Urine Glucose (UA) 100 mg/dL (NEG) Urine Ketones (Stick) Negative mg/dL (NEG) Urine Blood Moderate (NEG) Urine Nitrite Negative (NEG) Urine Bilirubin Negative (NEG) Urine Urobilinogen Dipstick 0.2 mg/dL (0.2 mg/dL) Urine Leukocyte Esterase Small (NEG) Urine RBC 11-20 /HPF (0-2) Urine WBC >40 /HPF (0-4) Urine Squamous Epithelial Cells Few /LPF Urine Bacteria Few /HPF (0-FEW) Urine Hyaline Casts Few /HPF White Blood Count 9.1 x10^3/uL (4.0-11.0) 10.1 x10^3/uL (4.0-11.0) Red Blood Count 4.05 x10^6/uL (3.50-5.40) 4.02 x10^6/uL (3.50-5.40) Hemoglobin 11.7 g/dL (12.0-15.5) 11.8 g/dL (12.0-15.5) Hematocrit 34.1 % (36.0-47.0) 33.7 % (36.0-47.0) Mean Corpuscular Volume 84 fL (79-100) 84 fL (79-100) Mean Corpuscular Hemoglobin 29 pg (25-35) 30 pg (25-35) Mean Corpuscular Hemoglobin Concent 34 g/dL (31-37) 35 g/dL (31-37) Red Cell Distribution Width 14.5 % (11.5-14.5) 15.1 % (11.5-14.5) Platelet Count 334 x10^3/uL (140-400) 335 x10^3/uL (140-400) Neutrophils (%) (Auto) 62 % (31-73) 71 % (31-73) Lymphocytes (%) (Auto) 24 % (24-48) 16 % (24-48) Monocytes (%) (Auto) 10 % (0-9) 11 % (0-9) Eosinophils (%) (Auto) 3 % (0-3) 1 % (0-3) Basophils (%) (Auto) 1 % (0-3) 1 % (0-3) Neutrophils # (Auto) 5.7 x10^3uL (1.8-7.7) 7.2 x10^3uL (1.8-7.7) Lymphocytes # (Auto) 2.2 x10^3/uL (1.0-4.8) 1.6 x10^3/uL (1.0-4.8) Monocytes # (Auto) 0.9 x10^3/uL (0.0-1.1) 1.2 x10^3/uL (0.0-1.1) Eosinophils # (Auto) 0.2 x10^3/uL (0.0-0.7) 0.1 x10^3/uL (0.0-0.7) Basophils # (Auto) 0.1 x10^3/uL (0.0-0.2) 0.1 x10^3/uL (0.0-0.2) Sodium Level 140 mmol/L (136-145) 139 mmol/L (136-145) Potassium Level 4.3 mmol/L (3.5-5.1) 3.7 mmol/L (3.5-5.1) Chloride Level 105 mmol/L (98-107) 103 mmol/L (98-107) Carbon Dioxide Level 31 mmol/L (21-32) 26 mmol/L (21-32) Anion Gap 4 (6-14) 10 (6-14) Blood Urea Nitrogen 14 mg/dL (7-20) 21 mg/dL (7-20) Creatinine 1.3 mg/dL (0.6-1.0) 1.6 mg/dL (0.6-1.0) Estimated GFR (Cockcroft-Gault) 40.5 31.9 BUN/Creatinine Ratio 11 (6-20) Glucose Level 169 mg/dL (70-99) 160 mg/dL (70-99) Calcium Level 8.4 mg/dL (8.5-10.1) 8.3 mg/dL (8.5-10.1) Magnesium Level 1.6 mg/dL (1.8-2.4) Total Bilirubin 0.6 mg/dL (0.2-1.0) Aspartate Amino Transf (AST/SGOT) 21 U/L (15-37) Alanine Aminotransferase (ALT/SGPT) 21 U/L (14-59) Alkaline Phosphatase 77 U/L (46-116) Creatine Kinase 64 U/L (26-192) Troponin I Quantitative 0.060 ng/mL (0.000-0.055) 0.062 ng/mL (0.000-0.055) 0.058 ng/mL (0.000-0.055) LR-Jik-C-Type Natriuretic Peptide 3656 pg/mL (0-124) Total Protein 5.6 g/dL (6.4-8.2) Albumin 2.4 g/dL (3.4-5.0) Albumin/Globulin Ratio 0.8 (1.0-1.7) ECHOCARDIOGRAM ECHOCARDIOGRAM <Conclusion> Left ventricle systolic function is normal. The Ejection Fraction is 60-65%. There is normal LV segmental wall motion. Mild to moderate aortic regurgitation. Mild mitral regurgitation. Mld tricuspid regurgitation. The PA pressure was estimated at 25 mmHg. There is no evidence of significant pericardial effusion. DATE: 08/15/16 1533 HEART CATH HEART CATH Conclusion 1. Three vessel CAD 2. Patent GUTIERREZ to LAD 3. Successful PCI of the LCx with implantation of a Xience 3.25mmx 18 LARA. Recommendations Aggressive Medical Therapy ASA 81mg daily indefinitely Plavix 75mg daily indefinitely if tolerated, but atleast 1 full year. DATE: 08/16/16 1629 <Conclusion> Chronically occluded right coronary artery. Moderate disease in the dominant left circumflex vessel. Patent GUTIERREZ graft to the LAD. Elevated left ventricular end-diastolic pressure. No significant changes on this angiogram compared to a previous angiogram done in March 2014. DATE: 08/31/15 1511 ASSESSMENT/PLAN ASSESSMENT/PLAN 1. Malignant HTN: improved 2. Dizziness: likely vagal episode due to above 3. CAD: CABG in the past, known AGENCY SALES REPRESENTATIVE RCA. Recent PCI/LARA to LCx 4. FRANTZ on CKD3 with known ANNA, chronic total occlusion to right and 30% to left instent restenosis, opted for medical treatment 5. Elevated troponin: peaked at 0.06. Demand mediated with underlying renal insufficiency, with known AGENCY SALES REPRESENTATIVE RCA and uncontrolled HTN 6. PAFIB: sotalol apixaban. remains on SR QTc 459 7. Mild to moderate polyvalvular insufficiency 8. Acute on Chronic diastolic CHF: EF 60-65% now compensated 9. PAD: recent RSFA percutaneous revascularization. stable 10. DM2/HLP: Stopped taking amaryl 2 weeks ago. Defer to PCP 11. Thyroid mass/moderate carotid artery disease: per PCP Recommendations 1. BP remains erratic despite med compliance. Will revisit possibility of renal angiogram and possible COMPOUNDING TECHNICIAN to left renal artery. 2. I did discuss above with pt in regards to medical vs interventional route and is willing to further with intervention. Will discuss with primary grinder mill operator 3. Mg and replace as warranted 4. No ACEi. Will increase norvasc. Hydralazine po with be an option pending BP trend. Hydralazine IV prn 5. Hgb stable no signs of bleed. Continue with ASA/plavix/eliquis Problems: WILLI LINDSEY MD 09/05/16 1617: CARDIAC CONSULT ALLERGIES ALLERGIES: Coded Allergies: Penicillins (Verified Allergy, Intermediate, 01/05/16) bacitracin (Verified Allergy, Intermediate, 01/05/16) ciprofloxacin (Verified Allergy, Intermediate, 11/02/13) erythromycin base (Verified Allergy, Intermediate, 01/05/16) neomycin (Verified Allergy, Intermediate, 01/05/16) niacin (Verified Allergy, Intermediate, 04/14/14) polymyxin B (Verified Allergy, Intermediate, 11/02/13) ASSESSMENT/PLAN ASSESSMENT/PLAN Patient seen and examined. Agree with STORAGE BRINE WORKER's assessment and plan. Blood pressure better controlled since admission but continues to be labile. Review titrate oral antihypertensives for better blood pressure control. Troponin level slightly elevated probably secondary to subendocardial ischemia from malignant hypertension. Doubt ACS. CAD status stable overall. Patient had was recently found to have 100% chronic occlusion of right renal artery with atrophic kidney and 30% stenosis of left renal artery on recent angiography. No benefit from repeating the procedure. PAF, maintaining sinus rhythm with sotalol. Thank you for your consultation. Problems: GOPI HERNANDEZ APRN September 05, 2016 11:46 WILLI LINDSEY MD September 05, 2016 16:17
--- NOTE | 2016-09-05 13:29 | RAD ---
Indication: Hypertension and CHF. Time of exam 1301 hours. Correlation is made with prior exam from 08/14/2016. Changes of median sternotomy are noted. The heart is enlarged. No infiltrates are seen. There is no evidence of congestive failure. There is a nodule in the left base, likely a granuloma. No effusion or pneumothorax is detected. Impression: No acute feature is identified.
[2016-09-05 15:00] VITALS: BP 182/56
[2016-09-05] MEDS ORDERED: amLODIPine BESYLATE 5 MG TABLET PO ONE (15:45)
[2016-09-05] MEDS ORDERED: MAGNESIUM SULFATE 2GM 50 ML IV ONE (16:30)
[2016-09-05] MEDS: hydrALAZINE 25 MG TABLET PO SCH ×2 (17:20→21:35)
[2016-09-05 19:52] VITALS: BP 166/76
[2016-09-05] MEDS: APIXABAN 5 MG TABLET. PO SCH (21:34)
[2016-09-05] MEDS: ATORVASTATIN CALCIUM 40 MG TABLET. PO SCH (21:35)
[2016-09-05 23:00] VITALS: BP 156/68
[2016-09-06 03:00] VITALS: BP 180/86
[2016-09-06] MEDS: hydrALAZINE 20 MG/ML VIAL. IVP PRN (04:03)
[2016-09-06] MEDS: PANTOPRAZOLE 40 MG TABLET.DR. PO SCH (06:33)
[2016-09-06 07:00] VITALS: BP 170/56
--- NOTE | 2016-09-06 09:15 | PDOC ---
Provider Note Provider Note no more marinelli, feels ok- carotids same re stenosis but L thyroid nodule seen, 3 cm , + risk zora CA- checjk tsh, sono- will add aldactone re bp as need to be off thierry/arb re renal status CHRISTINA ROSENBAUM MD September 06, 2016 09:15
[2016-09-06] MEDS: CLOPIDOGREL BISULFATE 75 MG TABLET PO SCH (09:17)
[2016-09-06] MEDS: MULTIVITAMIN with MINERAL TABLET. PO SCH (09:17)
[2016-09-06] MEDS: ASPIRIN CHEWABLE 81 MG TABLET. PO SCH (09:17)
[2016-09-06] MEDS: OMEGA-3 FATTY ACIDS/FISH OIL 1,000 MG CAPSULE. PO SCH (09:18)
[2016-09-06] MEDS: SOTALOL 80 MG TABLET. PO SCH ×2 (09:18→22:28)
[2016-09-06] MEDS: amLODIPine BESYLATE 10 MG TABLET PO SCH (09:18)
[2016-09-06] MEDS: CHOLECALCIFEROL (VITAMIN D3) 1,000 UNIT TABLET PO SCH (09:18)
[2016-09-06] MEDS: hydrALAZINE 25 MG TABLET PO SCH ×3 (09:19→22:29)
[2016-09-06] MEDS: CYANOCOBALAMIN (VITAMIN B-12) 1,000 MCG TABLET. PO SCH (09:19)
[2016-09-06] MEDS: ASCORBIC ACID 500 MG TABLET PO SCH (09:19)
[2016-09-06] MEDS: hydroCHLOROthiazide 12.5 MG CAPSULE PO SCH (09:19)
[2016-09-06] MEDS: APIXABAN 5 MG TABLET. PO SCH ×2 (09:19→22:27)
[2016-09-06] MEDS: ISOSORBIDE MONONITRATE ER 60 MG TAB.ER.24H. PO SCH (09:20)
--- NOTE | 2016-09-06 10:20 | RAD ---
Indication: Left-sided thyroid nodule noted on carotid ultrasound. The right lobe of the thyroid measures 4.1 x 1.8 x 2.1 cm and the left lobe measures 4.6 x 2.2 x 2.9 cm. The isthmus is 6 mm in thickness. The right lobe demonstrates fairly homogeneous echotexture. No discrete mass is identified. There is a large, mixed cystic and solid mass involving the left lobe of the thyroid measuring 2.7 x 1.9 x 2.2 cm. This does show some internal vascularity and correlates with the abnormality noted on carotid Doppler. No other masses are seen. Impression: Dominant solid mass left lobe of the thyroid. Fine-needle aspiration would be recommended for further evaluation.
[2016-09-06] MEDS ORDERED: ANTI-COAG MONITOR BY PHARMACY. MC PRN (11:00)
[2016-09-06] MEDS ORDERED: SPIRONOLACTONE 25 MG TABLET PO SCH (11:00)
[2016-09-06 12:32] LABS: CALCIUM 8.1 mg/dL (8.5-10.1); CREATININE 1.5 mg/dL (0.6-1.0); GFR 34.3; POTASSIUM 3.8 mmol/L (3.5-5.1)
--- NOTE | 2016-09-06 12:58 | PDOC ---
GOPI HERNANDEZ VESSEL CREW MEMBER 09/06/16 1258: CARDIO Progress Notes Date and Time Date of Service 09/06/2016 Time of Evaluation 1115 Subjective Subjective: No Chest Pain, No shortness of breath, No Palpitations, No Dizziness, Other (feels much better today) Vitals Vitals Vital Signs Date Time Temp Pulse Resp B/P (MAP) Pulse Ox O2 Delivery O2 Flow Rate FiO2 09/06/16 09:20 61 170/56 09/06/16 08:00 Room Air 09/06/16 07:00 98.1 18 92 98.1 Weight Weight [ ] Input and Output Intake and Output Intake and Output 09/06/16 07:00 Intake Total 820 ml Output Total 250 ml Balance 570 ml Intake Oral 820 ml Output Urine Total 250 ml # Voids 3 Laboratory Labs Laboratory Tests Test 09/06/16 12:05 Sodium Level 135 mmol/L (136-145) Potassium Level 3.8 mmol/L (3.5-5.1) Chloride Level 102 mmol/L (98-107) Carbon Dioxide Level 24 mmol/L (21-32) Anion Gap 9 (6-14) Blood Urea Nitrogen 30 mg/dL (7-20) Creatinine 1.5 mg/dL (0.6-1.0) Estimated GFR (Cockcroft-Gault) 34.3 Glucose Level 234 mg/dL (70-99) Calcium Level 8.1 mg/dL (8.5-10.1) Microbiology Micro Microbiology 09/04/16 Urine Culture - Preliminary, Resulted 09/04/16 Urine Culture Result 1 (MAHENDRA) - Preliminary, Resulted Physical Exam HEENT: Neck Supple W Full Motion Chest: Symmetric LUNGS: Clear to Auscultation Heart: S1S2, RRR (SR) Abdomen: Soft N/T Extremities: No Calf Tenderness, Other (1+ RLE pitting edema, LAKA) Neurology: alert, oriented, follow commands Assessment Assessment 1. Malignant HTN: labile 2. Dizziness: likely vagal episode due to above. None further 3. CAD: CABG in the past, known MEDICAL RECEPTIONIST MEDICAL ASSISTANT RCA. Recent PCI/LARA to LCx 4. FRANTZ on CKD3 with known ANNA, chronic total occlusion to right and 30% to left instent restenosis, opted for medical treatment 5. Elevated troponin: peaked at 0.06. Demand mediated with underlying renal insufficiency, with known MEDICAL RECEPTIONIST MEDICAL ASSISTANT RCA and uncontrolled HTN 6. PAFIB: remains SR 7. Mild to moderate polyvalvular insufficiency 8. Acute on Chronic diastolic CHF: EF 60-65%. compensated 9. PAD: recent RSFA percutaneous revascularization. stable 10. DM2/HLP Recommendations 1. Further discussion with primary tennis net maker in regards to repeat renal angiogram with her significant ANNA and no benefit from repeating the procedure. 2. BP remains erratically labile and will treat this medically. Will increase hydralazine and will start on low dose labetolol. Will monitor response overnight 3. No ACEi, Continue on norvasc, imdur. Hydralazine IV prn 4. Continue on sotalol, eliquis 5. DAPT with secondary prevention WILLI LINDSEY MD 09/06/16 1604: CARDIO Progress Notes Assessment Assessment Patient seen and examined. Agree with NURSING TECH's assessment and plan. Increase hydralazine dose and added labetalol for better blood pressure control. CAD status stable. GOPI HERNANDEZ APRN September 06, 2016 12:58 WILLI LINDSEY MD September 06, 2016 16:04
[2016-09-06] MEDS ORDERED: LABETALOL HCL 200 MG TABLET PO SCH (13:00)
[2016-09-06 15:00] VITALS: BP 131/43
[2016-09-06 19:00] VITALS: BP 162/54
[2016-09-06] MEDS: ATORVASTATIN CALCIUM 40 MG TABLET. PO SCH (22:27)
[2016-09-06 22:29] VITALS: BP 185/59
[2016-09-07] MEDS: HYDROcodone/APAP 5/325MG 1 TAB TABLET PO PRN (00:37)
[2016-09-07 01:25] VITALS: BP 173/56
[2016-09-07] MEDS: hydrALAZINE 20 MG/ML VIAL. IVP PRN (01:39)
[2016-09-07 03:06] VITALS: BP 151/56
[2016-09-07] MEDS: PANTOPRAZOLE 40 MG TABLET.DR. PO SCH (05:06)
[2016-09-07 07:30] VITALS: BP 164/54
--- NOTE | 2016-09-07 08:17 | DISCH ---
DISCHARGE INSTRUCTIONS Condition on Discharge Condition on Discharge: Stable Activity After Discharge Activity Instructions for Disc: No restrictions Diet after Discharge Diet after Discharge: No Added Salt Follow-Up Follow up with: as scheduled CHRISTINA ROSENBAUM MD September 07, 2016 08:17
--- NOTE | 2016-09-07 08:30 | PDOC ---
Provider Note Provider Note [id number] CHRISTINA ROSENBAUM MD September 07, 2016 08:30
[2016-09-07] MEDS: CLOPIDOGREL BISULFATE 75 MG TABLET PO SCH (08:49)
[2016-09-07] MEDS: MULTIVITAMIN with MINERAL TABLET. PO SCH (08:50)
[2016-09-07] MEDS: hydroCHLOROthiazide 12.5 MG CAPSULE PO SCH (08:50)
[2016-09-07] MEDS: ISOSORBIDE MONONITRATE ER 60 MG TAB.ER.24H. PO SCH (08:50)
[2016-09-07] MEDS: OMEGA-3 FATTY ACIDS/FISH OIL 1,000 MG CAPSULE. PO SCH (08:50)
[2016-09-07] MEDS: ASCORBIC ACID 500 MG TABLET PO SCH (08:51)
[2016-09-07] MEDS: ASPIRIN CHEWABLE 81 MG TABLET. PO SCH (08:51)
[2016-09-07] MEDS: APIXABAN 5 MG TABLET. PO SCH (08:51)
[2016-09-07] MEDS: amLODIPine BESYLATE 10 MG TABLET PO SCH (08:51)
[2016-09-07] MEDS: CHOLECALCIFEROL (VITAMIN D3) 1,000 UNIT TABLET PO SCH (08:51)
[2016-09-07] MEDS: CYANOCOBALAMIN (VITAMIN B-12) 1,000 MCG TABLET. PO SCH (08:52)
[2016-09-07 08:53] VITALS: BP 164/54
[2016-09-07] MEDS: SOTALOL 80 MG TABLET. PO SCH (08:53)
[2016-09-07] MEDS ORDERED: ISOSORBIDE MONONITRATE ER 30 MG TAB.ER.24H PO SCH (10:00)
--- NOTE | 2016-09-07 19:01 | DS ---
DATE OF DISCHARGE: 09/07/2016 HOSPITAL SUMMARY: A 71-year-old white female with coronary artery disease, peripheral arterial disease, and hypertension who came in with headache and fairly high blood pressure. Her carotid Doppler study showed no changes with moderate plaque on both left and right carotid arteries, but a solid mass over the left thyroid was noted. Thyroid sonogram showed a dominant cystic and solid mass, 2.7 cm x 2.2 cm, raising the suspicion of possible thyroid cancer. Chemistry profile showed a creatinine of 1.6 on admission and 1.5 at discharge but otherwise normal values and normal TSH, CBC, and urinalysis. She was treated with the addition of hydrochlorothiazide and spironolactone and stopped the Lasix, and blood pressure has been doing better and with her stable renal function is comfortable to be followed as an outpatient. FINAL DIAGNOSES: 1. Hypertensive urgency. 2. 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 OPERATIONS, PROCEDURES, COMPLICATIONS: None. CONSULTATIONS: Dr. Heredia's group. DISPOSITION: Cannot do fine needle aspiration of the thyroid mass at this time as she understands because she cannot safely be off the aspirin and Eliquis that she is currently taking because of her recent coronary artery stenting. She may be able to be off those drugs in October to allow fine needle aspiration. We will stop her Lasix and switch to hydrochlorothiazide 12.5 mg daily and spironolactone 25 mg daily and may need to increase the amlodipine at the office visit from 5 to 10 depending on responses. Rest of medications remain the same. Office followup in 1 month to discuss the time of thyroid mass needle aspiration. CHRISTINA ROSENBAUM MD DR: AVNI/concetta JOB#: [id number] / [id number]
[2016-09-08] MEDS ORDERED: ISOSORBIDE MONONITRATE ER 30 MG TAB.ER.24H PO SCH (09:00)
== END 2016-09-07 10:25 | disposition home or self-care (01) | DRG 682 ==
LOC: ER 12:47 → 6 SOUTH 16:30
PROVIDERS: ADMIT Family Medicine; ATTEND Family Medicine
DX: N17.9 Acute kidney failure, unspecified (principal); I50.33 Acute on chronic diastolic (congestive) heart failure; I13.0 Hypertensive heart and chronic kidney disease with heart failure and stage 1 through stage 4 chronic kidney disease, or unspecified chronic kidney disease; I16.1 Hypertensive emergency; I24.8 Other forms of acute ischemic heart disease; C73 Malignant neoplasm of thyroid gland; M19.90 Unspecified osteoarthritis, unspecified site; G56.01 Carpal tunnel syndrome, right upper limb; E78.00 Pure hypercholesterolemia, unspecified; I25.10 Atherosclerotic heart disease of native coronary artery without angina pectoris; N18.3 Chronic kidney disease, stage 3 (moderate); E11.22 Type 2 diabetes mellitus with diabetic chronic kidney disease; E78.5 Hyperlipidemia, unspecified; I16.0 Hypertensive urgency; I48.0 Paroxysmal atrial fibrillation; E11.51 Type 2 diabetes mellitus with diabetic peripheral angiopathy without gangrene; Z82.49 Family history of ischemic heart disease and other diseases of the circulatory system; Z89.612 Acquired absence of left leg above knee; Z95.1 Presence of aortocoronary bypass graft; Z95.5 Presence of coronary angioplasty implant and graft; Z99.3 Dependence on wheelchair; Z88.0 Allergy status to penicillin; Z88.1 Allergy status to other antibiotic agents
CPT/HCPCS: 36415; 71010; 76536; 80048; 80053; 81001; 82550; 83735; 83880; 84443; 84484; 85027; 87086; 93005; 93880; 96361; 96374; 96375; J0360; J2270; J7040; J7060; 99285-25

== ENCOUNTER → 2016-11-15 | Outpatient (CLI) | payer MEDICARE, OTHER ==
[~2016-11-15] MED LIST changes: +ASPI-630 PO; -ASPI81TA2 PO; +CHOL100014 PO; -CHOL10007 PO; -HYDR-2666 PO; +HYDR-2758 PO; -OMEG1CAP16 PO; +OMEG1CAP27 PO
--- NOTE | 2016-11-15 13:12 | CARD ---
APPROVED REPORT EXAM: Two-dimensional and M-mode echocardiogram with Doppler and color Doppler. Other Information Quality : Average Rhythm : NSR INDICATION Aortic Valve Disease 2D DIMENSIONS RVDd3.3 (2.9-3.5cm)Left Atrium(2D)3.2 (1.6-4.0cm) IVSd1.4 (0.7-1.1cm)Aortic Root(2D)2.5 (2.0-3.7cm) LVDd4.5 (3.9-5.9cm)LVOT Diameter2.0 (1.8-2.4cm) PWd1.4 (0.7-1.1cm)LVDs3.0 (2.5-4.0cm) FS (%) 33.4 %SV57.7 ml LVEF(%)62.2 (>50%) Aortic Valve AoV Peak Donte.297.3cm/sAoV VTI68.7cm AO Peak GR.51.0mmHgLVOT Peak Donte.105.8cm/s LVOT VTI 26.31cmAO Mean GR.25mmHg THADDEUS (VMAX)1.81eu5ZDC (VTI)1.00cm2 AI P 1/2 Vhds119vn Mitral Valve MV E Bztvaibt56.3cm/sMV DECEL BPZY489mj MV A Bzhtgeyl64.6cm/sMV E Mean Gr.2mmHg MV HIX916yoW/A Ratio1.3 MV A Qlrbncra23cgBIA (PHT)2.15cm2 TDI E/Lateral E'16.0E/Medial E'17.5 Pulmonary Valve PV Peak Ogfesfvc930.7cm/sPV Peak Grad.10mmHg RVOT VTI20.0cm Tricuspid Valve TR P. Bveoouao581ex/sRAP ISORQGVW25acQq TR Peak Gr.17deAxWMJN01grNw Pulmonary Vein S1 Zxshgunf27.8cm/sD2 Rmvrrlpv28.4cm/s LEFT VENTRICLE The left ventricle is normal size. There is mild concentric left ventricular hypertrophy. Left ventri karin systolic function is normal. The Ejection Fraction is 60-65%. There is normal LV segmental wall m otion. The left ventricular diastolic function and filling is normal for age. There is no ventricular septal defect visualized. RIGHT VENTRICLE The right ventricle is normal size. The right ventricular systolic function is normal. ATRIA The left atrium size is normal. The right atrium size is normal. The interatrial septum is intact wit h no evidence for an atrial septal defect or patent foramen ovale as noted on 2-D or Doppler imaging. AORTIC VALVE The aortic valve is not well visualized. The aortic valve is moderately calcified. Doppler and Color Flow revealed mild to moderate aortic regurgitation. Calculated aortic valve area is 1.0 cm2 with max imum pressure gradient of 51 mmHg and mean pressure gradient of 25 mmHg. Doppler and color-flow jazmine sis revealed moderate aortic stenosis but visually the valve appears to be severely stenotic. MITRAL VALVE Mitral annular calcification is mild to moderate. The mitral valve leaflets are thickened. There is n o mitral valve stenosis. Doppler and Color Flow revealed mild mitral regurgitation. TRICUSPID VALVE The tricuspid valve is normal in structure. Doppler and Color Flow revealed trace to mild tricuspid r egurgitation. The PA pressure was estimated at 41 mmHg. There is no tricuspid valve stenosis. PULMONIC VALVE The pulmonic valve is not well visualized. Doppler and Color Flow revealed no pulmonic valvular regur gitation. There is no pulmonic valvular stenosis. GREAT VESSELS The aortic root is normal in size. The IVC is dilated and collapses <50% with inspiration. PERICARDIAL EFFUSION There is no evidence of significant pericardial effusion. Critical Notification Critical Value: No <Conclusion> Left ventricle systolic function is normal. The Ejection Fraction is 60-65%. Calculated aortic valve area is 1.0 cm2 with maximum pressure gradient of 51 mmHg and mean pressure g radient of 25 mmHg. Doppler and color-flow analysis revealed moderate aortic stenosis but visually th e valve appears to be severely stenotic.
== END | disposition home or self-care (01) ==
LOC: ECHO 10:06
PROVIDERS: ATTEND Internal Medicine Cardiovascular Disease
DX: I08.1 Rheumatic disorders of both mitral and tricuspid valves (principal)
CPT/HCPCS: 93306

== ENCOUNTER 2016-12-23 16:14 | Emergency (ER) | payer MEDICARE, OTHER ==
[~2016-12-23] VITALS: Ht 170.2 cm; Wt 82.1 kg
[~2016-12-23 16:14] MED LIST changes: +AMIO200T2 PO; +HYDR-2869 PO; +LABE200T2 PO; +MAGN400C PO; +POTASSIUM CHLO10 MEQ PO; +SPIR25TA PO
--- NOTE | 2016-12-23 16:59 | PHYS DOC ---
Past Medical History Past Medical History: CAD, Diabetes-Type II, High Cholesterol, Hypertension, Other Additional Past Medical Histor: carpal tunnel Past Surgical History: Coronary Bypass Surgery, Other Additional Past Surgical Histo: LEFT AKA; right carpal tunnel release Alcohol Use: None Drug Use: None Adult General Chief Complaint Chief Complaint: HYPERTENSION HPI HPI Patient is a 71 year old female who presents with weakness and dizziness, left arm swelling, blood pressures that have been above 150 and around 90 onset today was dismissed yesterday post pacemaker placement on Saturday. Currently denies any chest pain or shortness of breath no nausea vomiting diarrhea or black or bloody stools. Review of Systems Review of Systems Constitutional: Denies fever or chills [] Eyes: Denies change in visual acuity, redness, or eye pain [] HENT: Denies nasal congestion or sore throat [] Respiratory: Denies cough or shortness of breath [] Cardiovascular: No additional information not addressed in HPI [] GI: Denies abdominal pain, nausea, vomiting, bloody stools or diarrhea [] : Denies dysuria or hematuria [] Musculoskeletal: Denies back pain or joint pain [] Integument: Denies rash or skin lesions [] Neurologic: Denies headache, focal weakness or sensory changes [] Endocrine: Denies polyuria or polydipsia [] Allergies Allergies Allergies Coded Allergies Type Severity Reaction Last Updated Verified Penicillins Allergy Intermediate 01/05/16 Yes bacitracin Allergy Intermediate 01/05/16 Yes ciprofloxacin Allergy Intermediate 11/02/13 Yes erythromycin base Allergy Intermediate 01/05/16 Yes neomycin Allergy Intermediate 01/05/16 Yes niacin Allergy Intermediate 04/14/14 Yes polymyxin B Allergy Intermediate 11/02/13 Yes Physical Exam Physical Exam Constitutional: Well developed, well nourished, no acute distress, non-toxic appearance. [] HENT: Normocephalic, atraumatic, bilateral external ears normal, oropharynx moist, no oral exudates, nose normal. [] Eyes: PERRLA, EOMI, conjunctiva normal, no discharge. [] Neck: Normal range of motion, no tenderness, supple, no stridor. [] Cardiovascular:Heart rate regular rhythm, no murmur [] Lungs & Thorax: Bilateral breath sounds clear to auscultation [] Abdomen: Bowel sounds normal, soft, no tenderness, no masses, no pulsatile masses. [] Skin: Warm, dry, no erythema, no rash. [] Back: No tenderness, no CVA tenderness. [] Extremities: No tenderness, no cyanosis, no clubbing, ROM intact, no edema. [] Neurologic: Alert and oriented X 3, normal motor function, normal sensory function, no focal deficits noted. [] Psychologic: Affect normal, judgement normal, mood normal. [] Current Patient Data Vital Signs Vital Signs Date Time Temp Pulse Resp B/P (MAP) Pulse Ox O2 Delivery O2 Flow Rate FiO2 12/23/16 19:58 64 25 152/68 (96) 97 Room Air 12/23/16 16:35 98.1 98.1 Lab Values Laboratory Tests Test 12/23/16 18:00 12/23/16 19:15 White Blood Count 11.2 x10^3/uL (4.0-11.0) H Red Blood Count 3.73 x10^6/uL (3.50-5.40) Hemoglobin 10.4 g/dL (12.0-15.5) L Hematocrit 30.8 % (36.0-47.0) L Mean Corpuscular Volume 83 fL (79-100) Mean Corpuscular Hemoglobin 28 pg (25-35) Mean Corpuscular Hemoglobin Concent 34 g/dL (31-37) Red Cell Distribution Width 16.6 % (11.5-14.5) H Platelet Count 460 x10^3/uL (140-400) H Neutrophils (%) (Auto) 77 % (31-73) H Lymphocytes (%) (Auto) 11 % (24-48) L Monocytes (%) (Auto) 10 % (0-9) H Eosinophils (%) (Auto) 1 % (0-3) Basophils (%) (Auto) 1 % (0-3) Neutrophils # (Auto) 8.6 x10^3uL (1.8-7.7) H Lymphocytes # (Auto) 1.2 x10^3/uL (1.0-4.8) Monocytes # (Auto) 1.1 x10^3/uL (0.0-1.1) Eosinophils # (Auto) 0.2 x10^3/uL (0.0-0.7) Basophils # (Auto) 0.1 x10^3/uL (0.0-0.2) Sodium Level 136 mmol/L (136-145) Potassium Level 4.4 mmol/L (3.5-5.1) Chloride Level 102 mmol/L (98-107) Carbon Dioxide Level 23 mmol/L (21-32) Anion Gap 11 (6-14) Blood Urea Nitrogen 15 mg/dL (7-20) Creatinine 1.5 mg/dL (0.6-1.0) H Estimated GFR (Cockcroft-Gault) 34.3 BUN/Creatinine Ratio 10 (6-20) Glucose Level 268 mg/dL (70-99) H Calcium Level 8.5 mg/dL (8.5-10.1) Total Bilirubin 0.6 mg/dL (0.2-1.0) Aspartate Amino Transferase (AST) 28 U/L (15-37) Alanine Aminotransferase (ALT) 17 U/L (14-59) Alkaline Phosphatase 91 U/L (46-116) Troponin I Quantitative 0.033 ng/mL (0.000-0.055) Total Protein 6.3 g/dL (6.4-8.2) L Albumin 1.7 g/dL (3.4-5.0) L Albumin/Globulin Ratio 0.4 (1.0-1.7) L Urine Collection Type U cath Urine Color Yellow Urine Clarity Clear Urine pH 6.5 Urine Specific [place] >=1.030 Urine Protein >=300 mg/dL (NEG-TRACE) Urine Glucose (UA) 250 mg/dL (NEG) Urine Ketones (Stick) Negative mg/dL (NEG) Urine Blood Negative (NEG) Urine Nitrite Negative (NEG) Urine Bilirubin Negative (NEG) Urine Urobilinogen Dipstick 0.2 mg/dL (0.2 mg/dL) Urine Leukocyte Esterase Negative (NEG) Urine RBC 1-2 /HPF (0-2) Urine WBC Occ /HPF (0-4) Urine Squamous Epithelial Cells Occ /LPF Urine Transitional Epithelial Cells Occ /LPF Urine Bacteria 0 /HPF (0-FEW) Urine Hyaline Casts Few /HPF Urine Mucus Slight /LPF Laboratory Tests 12/23/16 18:00 Laboratory Tests 12/23/16 18:00 EKG EKG EKG [Jeronimo rhythm of 70 no ischemic changes QTC 504 wide paced complex paced rhythm my interpretation] Radiology/Procedures Radiology/Procedures Chest x-ray [pacemaker intact mild cardiomegaly small pleural effusions my interpretation and review] Venous ultrasound left upper extremity negative for DVT per radiology report Course & Med Decision Making Course & Med Decision Making Pertinent Labs and Imaging studies reviewed. (See chart for details) Patient was observed for several hours and looks much improved feels better wants to go home her pulse rates been stable in the 70s blood pressure is been within normal limits and she stable for outpatient dismissal. She did finally admit that she not taken any of her cardiac meds for 24 hours due to a pharmacy error and she just restarted the meds this afternoon each probably has a lot to do with her not feeling well. Pacemaker was interrogated appears to be functional. [] Dragon Disclaimer Dragon Disclaimer This electronic medical record was generated, in whole or in part, using a voice recognition dictation system. Departure Departure Impression: Primary Impression: Weakness generalized Additional Impression: Left arm swelling Disposition: 01 HOME, SELF-CARE Condition: IMPROVED Referrals: CHRISTINA ROSENBAUM MD (PCP) Patient Instructions: Weakness, [id number] Problem Qualifiers SHERYL TIERNEY MD Dec 23, 2016 16:58
--- NOTE | 2016-12-23 18:10 | RAD ---
Left upper extremity venous Doppler dated 12/23/2016. No comparison available. Clinical indication: Left arm swelling. FINDINGS: Grayscale, color-flow and spectral waveform analysis performed to include the deep venous system of the left upper extremity. Normal compressibility, phasicity and augmentation of flow throughout. No filling defects are seen. IMPRESSION: No evidence of left upper extremity deep vein thrombosis. Electronically signed by: Cornelius Dias MD (12/23/2016 6:07 PM) [facility]
[2016-12-23 18:16] LABS: BASO # 0.1 x10^3/uL (0.0-0.2); BASO % 1 % (0-3); EOS % 1 % (0-3); HEMATOCRIT 30.8 % (36.0-47.0); HEMOGLOBIN 10.4 g/dL (12.0-15.5); LYMPH # 1.2 x10^3/uL (1.0-4.8); LYMPH % 11 % (24-48); MEAN CORPUSCULAR HEMOGLOBIN 28 pg (25-35); MEAN CORPUSCULAR HGB CONC 34 g/dL (31-37); MEAN CORPUSCULAR VOLUME 83 fL (79-100); MONO % 10 % (0-9); NEUT % 77 % (31-73); PLATELET COUNT 460 x10^3/uL (140-400); RED BLOOD COUNT 3.73 x10^6/uL (3.50-5.40); RED CELL DISTRIBUTION WIDTH 16.6 % (11.5-14.5); WHITE BLOOD COUNT 11.2 x10^3/uL (4.0-11.0)
[2016-12-23 18:29] LABS: CALCIUM 8.5 mg/dL (8.5-10.1); CREATININE 1.5 mg/dL (0.6-1.0); GFR 34.3; POTASSIUM 4.4 mmol/L (3.5-5.1)
[2016-12-23 18:36] LABS: ALBUMIN 1.7 g/dL (3.4-5.0); ALBUMIN/GLOBULIN RATIO 0.4 (1.0-1.7); TOTAL BILIRUBIN 0.6 mg/dL (0.2-1.0); TOTAL PROTEIN 6.3 g/dL (6.4-8.2)
[2016-12-23 19:28] LABS: BILIRUBIN,URINE NEGATIVE (NEG); GLUCOSE,URINE 250 mg/dL (NEG); NITRITE,URINE NEGATIVE (NEG); PH,URINE 6.5; PROTEIN,URINE >=300 mg/dL (NEG-TRACE); UROBILINOGEN,URINE 0.2 mg/dL (0.2 mg/dL)
[2016-12-23 19:37] LABS: BACTERIA,URINE 0 /HPF (0-FEW); SQUAMOUS EPITHELIAL CELL,UR OCC /LPF; WBC,URINE OCC /HPF (0-4)
[2016-12-23 19:58] VITALS: BP 152/68
--- NOTE | 2016-12-24 06:08 | EKG ---
[facility] [address] [place] [address] Test Date: 2016-12-23 Test Time: 16:57:30 Pat Name: MARISA RIOJAS Department: Room: Gender: F Location Manager: : 1945 Requested By: SHERYL TIERNEY Order Number: [id number] Reading MD: Bhupendra Kemp Measurements Intervals [place] Rate: 124 P: CO: QRS: -85 QRSD: 192 T: 95 QT: 348 QTc: 504 Interpretive Statements V-PACED RHYTHM Electronically Signed On 12-24-2016 12:04:31 CDT by Bhupnedra Kemp
--- NOTE | 2016-12-24 08:01 | RAD ---
Exam performed: One view chest. Indication: dyspnea weakness Date of Service: 12/23/2016 6:50 PM Comparison: 12/22/16. Single AP upright portable view chest findings: Cardiomediastinal silhouette is within limits of normal. Previous median sternotomy and bipolar pacemaker. No acute infiltrates or pneumothorax is detected. Small bilateral pleural effusions redemonstrated. The bony structures are normal. Impression: Small bilateral pleural effusions.
== END 2016-12-23 20:05 | disposition home or self-care (01) ==
LOC: ER 16:14
DX: R53.1 Weakness (principal); R42 Dizziness and giddiness; M79.89 Other specified soft tissue disorders; E78.00 Pure hypercholesterolemia, unspecified; I10 Essential (primary) hypertension; E11.9 Type 2 diabetes mellitus without complications; I25.10 Atherosclerotic heart disease of native coronary artery without angina pectoris; Z95.1 Presence of aortocoronary bypass graft; Z88.0 Allergy status to penicillin; Z88.1 Allergy status to other antibiotic agents; Z88.8 Allergy status to other drugs, medicaments and biological substances
CPT/HCPCS: 36415; 71010; 80053; 81001; 84484; 85025; 93005; 93971; 99285-25

== ENCOUNTER 2016-12-25 10:40 | Observation (INO) | payer MEDICARE, OTHER ==
[~2016-12-25] VITALS: Ht 170.2 cm; Wt 86.5 kg
--- NOTE | 2016-12-25 11:58 | RAD ---
AP portable chest radiograph 12/25/2016 Clinical History: Hypotension. An AP portable erect digital radiograph of the chest was obtained. Comparison study is dated 12/23/2016. Surgical changes are seen consistent with a CABG procedure. A pacemaker is unchanged position. The cardiac silhouette is mildly enlarged. Atherosclerotic calcification of the thoracic aorta is seen. Thoracic aorta is mildly tortuous. Blunting of the left costophrenic angle seen consistent with a small left pleural effusion, unchanged. No acute pulmonary infiltrate is noted. No pneumothorax is seen. The osseous structures are unchanged. Impression: Mild cardiomegaly with small left pleural effusion, unchanged. No acute pulmonary infiltrate is seen.
[2016-12-25] MEDS: POTASSIUM CHLORIDE 10 MEQ TABLET.ER. PO SCH ×3 (12:00→22:10)
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
[2016-12-25 12:43] LABS: BASO # 0.1 x10^3/uL (0.0-0.2); BASO % 1 % (0-3); EOS % 2 % (0-3); HEMATOCRIT 26.3 % (36.0-47.0); HEMOGLOBIN 9.1 g/dL (12.0-15.5); LYMPH # 1.2 x10^3/uL (1.0-4.8); LYMPH % 12 % (24-48); MEAN CORPUSCULAR HEMOGLOBIN 28 pg (25-35); MEAN CORPUSCULAR HGB CONC 35 g/dL (31-37); MEAN CORPUSCULAR VOLUME 81 fL (79-100); MONO % 9 % (0-9); NEUT % 77 % (31-73); PLATELET COUNT 444 x10^3/uL (140-400); RED BLOOD COUNT 3.24 x10^6/uL (3.50-5.40); RED CELL DISTRIBUTION WIDTH 16.7 % (11.5-14.5); WHITE BLOOD COUNT 9.9 x10^3/uL (4.0-11.0)
--- NOTE | 2016-12-25 12:51 | EKG ---
[facility] [address] [place] [address] Test Date: 2016-12-25 Test Time: 10:45:57 Pat Name: MARISA RIOJAS Department: Room: Gender: F Regional Manager: [place] : 1945 Requested By: CARMEN HANSEN Order Number: [id number] Reading MD: Bhupendra Kemp Measurements Intervals [place] Rate: 60 P: 39 TN: 232 QRS: -22 QRSD: 132 T: 66 QT: 480 QTc: 485 Interpretive Statements SINUS RHYTHM PROLONGED TN INTERVAL RBBB Electronically Signed On 12-27-2016 11:12:48 CDT by Bhupendra Kemp
[2016-12-25 12:57] LABS: CREATININE 1.6 mg/dL (0.6-1.0); GFR 31.9; POTASSIUM 4.1 mmol/L (3.5-5.1)
[2016-12-25 13:10] LABS: ALBUMIN 1.5 g/dL (3.4-5.0); ALBUMIN/GLOBULIN RATIO 0.3 (1.0-1.7); TOTAL BILIRUBIN 0.5 mg/dL (0.2-1.0); TOTAL PROTEIN 5.8 g/dL (6.4-8.2)
[2016-12-25] MEDS ORDERED: MORPHINE SULFATE 4 MG/ML DISP.SYRIN. IV PRN (16:45)
[2016-12-25] MEDS ORDERED: ONDANSETRON PF 4 MG/2 ML VIAL. IV PRN (16:45)
[2016-12-25] MEDS ORDERED: ACETAMINOPHEN 325 MG TABLET. PO PRN (16:45)
[2016-12-25 20:17] VITALS: BP 143/57
[2016-12-25] MEDS ORDERED: HYDROcodone/APAP 5/325MG 1 TAB TABLET PO SCH (21:15)
[2016-12-25] MEDS: ATORVASTATIN CALCIUM 40 MG TABLET. PO SCH (22:10)
[2016-12-25] MEDS: APIXABAN 5 MG TABLET. PO SCH (22:14)
[2016-12-25 22:23] VITALS: BP 152/62
[2016-12-25] MEDS: ASPIRIN CHEWABLE 81 MG TABLET. PO SCH (22:30)
[2016-12-25] MEDS ORDERED: ALPR0.5T PO (23:01)
[2016-12-25] MEDS: ALPRAZolam 0.5 MG TABLET PO PRN (23:42)
[2016-12-26] VITALS (7 sets, daily range): BP systolic 119–186; BP diastolic 54–78
[2016-12-26] MEDS ORDERED: HYDROcodone/APAP 5/325MG 1 TAB TABLET PO PRN
[2016-12-26] MEDS: APIXABAN 5 MG TABLET. PO SCH ×2 (06:36→17:34)
[2016-12-26 06:54] LABS: BASO # 0.1 x10^3/uL (0.0-0.2); BASO % 1 % (0-3); EOS % 4 % (0-3); HEMATOCRIT 26.9 % (36.0-47.0); HEMOGLOBIN 9.2 g/dL (12.0-15.5); LYMPH # 1.6 x10^3/uL (1.0-4.8); LYMPH % 21 % (24-48); MEAN CORPUSCULAR HEMOGLOBIN 28 pg (25-35); MEAN CORPUSCULAR HGB CONC 34 g/dL (31-37); MEAN CORPUSCULAR VOLUME 83 fL (79-100); MONO % 11 % (0-9); NEUT % 63 % (31-73); PLATELET COUNT 446 x10^3/uL (140-400); RED BLOOD COUNT 3.26 x10^6/uL (3.50-5.40); RED CELL DISTRIBUTION WIDTH 16.7 % (11.5-14.5); WHITE BLOOD COUNT 7.6 x10^3/uL (4.0-11.0)
[2016-12-26] MEDS ORDERED: APIXABAN 5 MG TABLET. PO SCH (07:00)
[2016-12-26 07:17] LABS: CALCIUM 8.1 mg/dL (8.5-10.1); CREATININE 1.9 mg/dL (0.6-1.0); GFR 26.1; POTASSIUM 4.2 mmol/L (3.5-5.1)
[2016-12-26] MEDS: OMEGA-3 FATTY ACIDS/FISH OIL 1,000 MG CAPSULE. PO SCH ×2 (09:00→09:42)
[2016-12-26] MEDS ORDERED: ASPIRIN CHEWABLE 81 MG TABLET. PO SCH (09:00)
[2016-12-26] MEDS ORDERED: ANTI-COAG MONITOR BY PHARMACY. MC PRN (09:00)
[2016-12-26] MEDS ORDERED: CYANOCOBALAMIN (VITAMIN B-12) 1,000 MCG TABLET. PO SCH (09:00)
--- NOTE | 2016-12-26 09:14 | PDOC ---
Provider Note Provider Note [id number] CHRISTINA ROSENBAUM MD Dec 26, 2016 09:14
[2016-12-26] MEDS ORDERED: ALPRAZolam 0.5 MG TABLET PO PRN (09:15)
--- NOTE | 2016-12-26 09:37 | HP ---
ADMIT DATE: 12/25/2016 CHIEF COMPLAINT: Hypotension and syncope. HISTORY OF PRESENT ILLNESS: A 71-year-old white female just discharged about 3 days ago after pacer placement for tachybrady syndrome from the hospital. She was on new medications including labetalol and hydralazine and apparently became weak and dizzy and lightheaded on the day of admission and was found to have a very low blood pressure of about 80. She was given some fluids in the ER and her heart rhythm remained semi-paced and she is feeling better at this time. She has been on amiodarone recently for atrial fibrillation prophylaxis in place of sotalol which caused too slow of her heart rate and prolonged QT interval. PAST MEDICAL HISTORY: Well documented in the old records. MEDICATIONS:. ALLERGIES: MULTIPLE ALLERGIES ARE NOTED. SOCIAL HISTORY: Nonsmoker, nondrinker, single, lives with her son as she is disabled because of a left below-knee amputation. FAMILY HISTORY: Unremarkable. REVIEW OF SYSTEMS: No other new problems. OBJECTIVE: ENT: All within normal limits. NECK: No masses, nodes or bruits. LUNGS: Clear. CARDIOVASCULAR: Regular rate, pacemaker in place. ABDOMEN: Benign. EXTREMITIES: Decreased pedal pulses in the right leg. Left leg has below-knee amputation. Radial pulses intact. NEUROLOGIC: Physiologic. LABORATORY: Studies not available. ASSESSMENT: 1. Hypotension, likely secondary to multiple antihypertensive meds. 2. Paroxysmal atrial fibrillation and currently appears to be in sinus rhythm. 3. Recent pacemaker placement for tachybrady syndrome. 4. Anemia of chronic disease. 5. Chronic kidney disease 3, stable. 6. History of hypomagnesemia, currently on replacement. PLAN: As ordered. CHRISTINA ROSENBAUM MD DR: AVNI/concetta JOB#: [id number] / [id number]
[2016-12-26] MEDS: ASPIRIN CHEWABLE 81 MG TABLET. PO SCH (09:40)
[2016-12-26] MEDS: CLOPIDOGREL BISULFATE 75 MG TABLET PO SCH (09:41)
[2016-12-26] MEDS: ISOSORBIDE MONONITRATE ER 30 MG TAB.ER.24H PO SCH (09:41)
[2016-12-26] MEDS: amLODIPine BESYLATE 10 MG TABLET PO SCH (09:41)
[2016-12-26] MEDS: ASCORBIC ACID 500 MG TABLET PO SCH (09:42)
[2016-12-26] MEDS: MAGNESIUM OXIDE 400 MG TABLET PO SCH (09:42)
[2016-12-26] MEDS: AMIODARONE HCL 200 MG TABLET. PO SCH (09:42)
[2016-12-26] MEDS: CHOLECALCIFEROL (VITAMIN D3) 1,000 UNIT TABLET PO SCH (09:42)
[2016-12-26] MEDS: ATORVASTATIN CALCIUM 40 MG TABLET. PO SCH (20:38)
[2016-12-26] MEDS: ALPRAZolam 0.5 MG TABLET PO PRN (22:28)
[2016-12-27] VITALS (8 sets, daily range): BP systolic 126–203; BP diastolic 53–73
[2016-12-27] MEDS ORDERED: cloNIDine HCL 0.1 MG TABLET PO PRN (03:00)
[2016-12-27 07:29] LABS: INR 1.1 (0.8-1.1); PROTHROMBIN TIME PATIENT 13.9 SEC (11.7-14.0)
[2016-12-27] MEDS: OMEGA-3 FATTY ACIDS/FISH OIL 1,000 MG CAPSULE. PO SCH ×2 (08:38→08:53)
[2016-12-27] MEDS: APIXABAN 5 MG TABLET. PO SCH ×2 (08:40→18:03)
[2016-12-27] MEDS: AMIODARONE HCL 200 MG TABLET. PO SCH (08:40)
[2016-12-27] MEDS: ASCORBIC ACID 500 MG TABLET PO SCH (08:41)
[2016-12-27] MEDS: MAGNESIUM OXIDE 400 MG TABLET PO SCH (08:41)
[2016-12-27] MEDS: ASPIRIN CHEWABLE 81 MG TABLET. PO SCH (08:41)
[2016-12-27] MEDS: CLOPIDOGREL BISULFATE 75 MG TABLET PO SCH (08:41)
[2016-12-27] MEDS: ISOSORBIDE MONONITRATE ER 30 MG TAB.ER.24H PO SCH (08:42)
[2016-12-27] MEDS: amLODIPine BESYLATE 10 MG TABLET PO SCH (08:42)
[2016-12-27] MEDS: CHOLECALCIFEROL (VITAMIN D3) 1,000 UNIT TABLET PO SCH (08:52)
--- NOTE | 2016-12-27 09:36 | PDOC ---
Provider Note Provider Note feels ok, bp up now off labet/hydralazine- still on norvasc- will resume labetalol now , but both drugs caused hypotension/admit- still nsr on CHRISTINA Tejeda MD Dec 27, 2016 09:36
[2016-12-27] MEDS: LABETALOL HCL 200 MG TABLET PO SCH ×2 (10:48→21:39)
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
[2016-12-27] MEDS ORDERED: LABETALOL HCL 200 MG TABLET PO SCH (21:00)
[2016-12-27] MEDS: ATORVASTATIN CALCIUM 40 MG TABLET. PO SCH (21:41)
[2016-12-28 03:00] VITALS: BP 137/60
[2016-12-28 07:30] VITALS: BP 163/60
--- NOTE | 2016-12-28 08:56 | DISCH ---
DISCHARGE INSTRUCTIONS Condition on Discharge Condition on Discharge: Stable Activity After Discharge Activity Instructions for Disc: No restrictions Diet after Discharge Diet after Discharge: Low Sodium 4 gm Follow-Up Follow up with: dr selvin Terry w CHRISTINA ROSENBAUM MD Dec 28, 2016 08:56
--- NOTE | 2016-12-28 08:59 | PDOC ---
Provider Note Provider Note [id number] CHRISTINA ROSENBAUM MD Dec 28, 2016 08:59
[2016-12-28] MEDS: APIXABAN 5 MG TABLET. PO SCH (09:10)
[2016-12-28] MEDS: ASPIRIN CHEWABLE 81 MG TABLET. PO SCH (09:10)
[2016-12-28] MEDS: MAGNESIUM OXIDE 400 MG TABLET PO SCH (09:10)
[2016-12-28] MEDS: CLOPIDOGREL BISULFATE 75 MG TABLET PO SCH (09:10)
[2016-12-28] MEDS: AMIODARONE HCL 200 MG TABLET. PO SCH (09:11)
[2016-12-28] MEDS: ASCORBIC ACID 500 MG TABLET PO SCH (09:11)
[2016-12-28] MEDS: OMEGA-3 FATTY ACIDS/FISH OIL 1,000 MG CAPSULE. PO SCH (09:11)
[2016-12-28] MEDS: amLODIPine BESYLATE 10 MG TABLET PO SCH (09:12)
[2016-12-28] MEDS: CHOLECALCIFEROL (VITAMIN D3) 1,000 UNIT TABLET PO SCH (09:12)
[2016-12-28] MEDS: LABETALOL HCL 200 MG TABLET PO SCH (09:12)
[2016-12-28] MEDS: ISOSORBIDE MONONITRATE ER 30 MG TAB.ER.24H PO SCH (09:13)
--- NOTE | 2016-12-28 09:19 | DS ---
DATE OF DISCHARGE: 12/28/2016 HOSPITAL SUMMARY: A 71-year-old white female on multiple meds for hypertension and recurrent atrial fibrillation, came in with a syncopal episode and was found to be hypotensive at the scene. Chemistry profile showed normal troponins, magnesium slightly low at 1.7, creatinine normal baseline of 1.6. Chest x-ray was clear. Her hydralazine and labetalol were withheld and blood pressure came back up. Labetalol was resumed and it appears that blood pressure is doing better at this time. She is comfortable and will be followed as an outpatient. FINAL DIAGNOSES: 1. Syncope secondary to antihypertensive meds. 2. Recurrent atrial fibrillation, stable. 3. Chronic kidney disease 3, stable. OPERATIONS, PROCEDURES, COMPLICATIONS: None. CONSULTATIONS: Dr. Kemp's group. DISPOSITION: Home meds remain the same except will stay off of hydralazine and continue labetalol and amlodipine for blood pressure. Activity as tolerated, modest salt intake. Office followup with Dr. Pritchard in 2 weeks and the metal forger's assistant regarding her recent pacemaker as they wished. PROGNOSIS: Guarded. CHRISTINA PRITCHARD MD DR: AVNI/concetta JOB#: [id number] / [id number]
[2016-12-28 11:00] VITALS: BP 126/60
[2016-12-28 11:23] LABS: HEMATOCRIT 27.8 % (36.0-47.0); HEMOGLOBIN 9.5 g/dL (12.0-15.5); RED BLOOD COUNT 3.38 x10^6/uL (3.50-5.40); RED CELL DISTRIBUTION WIDTH 16.4 % (11.5-14.5); WHITE BLOOD COUNT 8.1 x10^3/uL (4.0-11.0)
[2016-12-28 11:33] LABS: CALCIUM 8.1 mg/dL (8.5-10.1); CREATININE 1.7 mg/dL (0.6-1.0); GFR 29.7; POTASSIUM 3.5 mmol/L (3.5-5.1)
== END 2016-12-28 11:15 | disposition home or self-care (01) ==
LOC: ER 10:40 → 2 SOUTH 16:52
PROVIDERS: ADMIT Family Medicine; ATTEND Family Medicine
DX: R55 Syncope and collapse (principal); I48.0 Paroxysmal atrial fibrillation; I13.0 Hypertensive heart and chronic kidney disease with heart failure and stage 1 through stage 4 chronic kidney disease, or unspecified chronic kidney disease; N18.3 Chronic kidney disease, stage 3 (moderate); E11.22 Type 2 diabetes mellitus with diabetic chronic kidney disease; E78.5 Hyperlipidemia, unspecified; I25.10 Atherosclerotic heart disease of native coronary artery without angina pectoris; I50.32 Chronic diastolic (congestive) heart failure; D63.8 Anemia in other chronic diseases classified elsewhere; E78.00 Pure hypercholesterolemia, unspecified; I45.81 Long QT syndrome; T46.5X5A Adverse effect of other antihypertensive drugs, initial encounter; Y92.89 Other specified places as the place of occurrence of the external cause; Z95.0 Presence of cardiac pacemaker; Z95.1 Presence of aortocoronary bypass graft; Z89.512 Acquired absence of left leg below knee; Z89.612 Acquired absence of left leg above knee
CPT/HCPCS: 36415; 71010; 80048; 80053; 83735; 84484; 85025; 85027; 85610; 85730; 93005; G0378; G0379; 99285-25

== ENCOUNTER 2017-01-04 10:36 | Emergency (ER) | payer MEDICARE, OTHER ==
[~2017-01-04] VITALS: Ht 170.2 cm; Wt 82.1 kg
[~2017-01-04 10:36] MED LIST changes: +ALPR0.5T PO
--- NOTE | 2017-01-04 11:25 | PHYS DOC ---
Past Medical History Past Medical History: CAD, Diabetes-Type II, High Cholesterol, Heart Disease, Hypertension, Other Additional Past Medical Histor: Carpal Tunnel Past Surgical History: Coronary Bypass Surgery, Pacemaker, Other Additional Past Surgical Histo: LEFT AKA; right carpal tunnel release Alcohol Use: None Drug Use: None Adult General Chief Complaint Chief Complaint: DIZZY/LIGHT HEADED HPI HPI Patient is a 71 year old occasional female who presents with dizziness chest pain and hypotension. She states this all started this morning around 10 AM and lasted about 5 minutes and she tried to get in to see her primary care office they have an appointment so she came to the ER. He sates her blood pressure at that time was 81/61 with a heart rate of 169. She states currently she feels completely fine. She states the chest discomfort was a pressure sensation in his occurred numerous times and she's felt dizzy and usually resolves. She did get a pacemaker put in 2 weeks ago. Her pacemaker is a [employer] it was placed Review of Systems Review of Systems Constitutional: Denies fever or chills [] Eyes: Denies change in visual acuity, redness, or eye pain [] HENT: Denies nasal congestion or sore throat [] Respiratory: Denies cough or shortness of breath [] Cardiovascular: No additional information not addressed in HPI [] GI: Denies abdominal pain, nausea, vomiting, bloody stools or diarrhea [] : Denies dysuria or hematuria [] Musculoskeletal: Denies back pain or joint pain [] Integument: Denies rash or skin lesions [] Neurologic: Denies headache, focal weakness or sensory changes [] Endocrine: Denies polyuria or polydipsia [] Current Medications Current Medications Current Medications Medications (Trade) Dose Ordered Sig/Shilo Start Time Stop Time Status Last Admin Dose Admin Magnesium Sulfate/ Dextrose 50 ml @ 25 mls/hr 1X ONCE 01/04/17 13:00 01/04/17 14:59 DC 01/04/17 13:35 25 MLS/HR Potassium Chloride (Klor-Con) 40 meq 1X ONCE 01/04/17 13:00 01/04/17 13:01 DC 01/04/17 13:34 40 MEQ Allergies Allergies Allergies Coded Allergies Type Severity Reaction Last Updated Verified Penicillins Allergy Intermediate 01/05/16 Yes bacitracin Allergy Intermediate 01/05/16 Yes ciprofloxacin Allergy Intermediate 11/02/13 Yes erythromycin base Allergy Intermediate 01/05/16 Yes neomycin Allergy Intermediate 01/05/16 Yes niacin Allergy Intermediate 04/14/14 Yes polymyxin B Allergy Intermediate 11/02/13 Yes Physical Exam Physical Exam Constitutional: Well developed, well nourished, no acute distress, non-toxic appearance. [] HENT: Normocephalic, atraumatic, bilateral external ears normal, oropharynx moist, no oral exudates, nose normal. [] Eyes: PERRLA, EOMI, conjunctiva normal, no discharge. [] Neck: Normal range of motion, no tenderness, supple, no stridor. [] Cardiovascular:Heart rate regular rhythm, 2/6 systolic ejection murmur [] Lungs & Thorax: Bilateral breath sounds clear to auscultation [] Abdomen: Bowel sounds normal, soft, no tenderness, no masses, no pulsatile masses. [] Skin: Warm, dry, no erythema, no rash. [] Back: No tenderness, no CVA tenderness. [] Extremities: No tenderness, no cyanosis, no clubbing, ROM intact, 1+ diffuse edema Neurologic: Alert and oriented X 3, normal motor function, normal sensory function, no focal deficits noted. [] Psychologic: Affect normal, judgement normal, mood normal. [] Current Patient Data Vital Signs Vital Signs Date Time Temp Pulse Resp B/P (MAP) Pulse Ox O2 Delivery O2 Flow Rate FiO2 01/04/17 14:17 60 15 161/98 (119) 96 Room Air 01/04/17 10:36 98.3 98.3 Lab Values Laboratory Tests Test 01/04/17 11:22 01/04/17 12:05 01/04/17 13:40 White Blood Count 7.9 x10^3/uL (4.0-11.0) Red Blood Count 3.49 x10^6/uL (3.50-5.40) L Hemoglobin 9.6 g/dL (12.0-15.5) L Hematocrit 28.0 % (36.0-47.0) L Mean Corpuscular Volume 80 fL (79-100) Mean Corpuscular Hemoglobin 27 pg (25-35) Mean Corpuscular Hemoglobin Concent 34 g/dL (31-37) Red Cell Distribution Width 16.0 % (11.5-14.5) H Platelet Count 417 x10^3/uL (140-400) H Neutrophils (%) (Auto) 75 % (31-73) H Lymphocytes (%) (Auto) 15 % (24-48) L Monocytes (%) (Auto) 6 % (0-9) Eosinophils (%) (Auto) 3 % (0-3) Basophils (%) (Auto) 1 % (0-3) Neutrophils # (Auto) 5.9 x10^3uL (1.8-7.7) Lymphocytes # (Auto) 1.2 x10^3/uL (1.0-4.8) Monocytes # (Auto) 0.5 x10^3/uL (0.0-1.1) Eosinophils # (Auto) 0.2 x10^3/uL (0.0-0.7) Basophils # (Auto) 0.1 x10^3/uL (0.0-0.2) Prothrombin Time 15.8 SEC (11.7-14.0) H Prothrombin Time INR 1.3 (0.8-1.1) H Sodium Level 142 mmol/L (136-145) Potassium Level 3.1 mmol/L (3.5-5.1) L Chloride Level 106 mmol/L (98-107) Carbon Dioxide Level 26 mmol/L (21-32) Anion Gap 10 (6-14) Blood Urea Nitrogen 13 mg/dL (7-20) Creatinine 1.6 mg/dL (0.6-1.0) H Estimated GFR (Cockcroft-Gault) 31.9 Glucose Level 212 mg/dL (70-99) H Calcium Level 8.6 mg/dL (8.5-10.1) Magnesium Level 1.3 mg/dL (1.8-2.4) L Total Bilirubin 0.3 mg/dL (0.2-1.0) Direct Bilirubin < 0.1 mg/dL (0.0-0.2) Aspartate Amino Transferase (AST) 16 U/L (15-37) Alanine Aminotransferase (ALT) 15 U/L (14-59) Alkaline Phosphatase 90 U/L (46-116) Creatine Kinase 72 U/L (26-192) Creatine Kinase MB (Mass) 1.2 ng/mL (0.0-3.6) Creatine Kinase MB Relative Index % (0-4) Troponin I Quantitative 0.035 ng/mL (0.000-0.055) 0.034 ng/mL (0.000-0.055) FH-Ynh-E-Type Natriuretic Peptide 4861 pg/mL (0-124) H Total Protein 5.8 g/dL (6.4-8.2) L Albumin 1.5 g/dL (3.4-5.0) L Lipase 133 U/L (73-393) Urine Collection Type Unknown Urine Color Yellow Urine Clarity Clear Urine pH 6.0 Urine Specific [place] >=1.030 Urine Protein >=300 mg/dL (NEG-TRACE) Urine Glucose (UA) 250 mg/dL (NEG) Urine Ketones (Stick) Negative mg/dL (NEG) Urine Blood Trace (NEG) Urine Nitrite Negative (NEG) Urine Bilirubin Negative (NEG) Urine Urobilinogen Dipstick 0.2 mg/dL (0.2 mg/dL) Urine Leukocyte Esterase Negative (NEG) Urine RBC 0 /HPF (0-2) Urine WBC 0 /HPF (0-4) Urine Squamous Epithelial Cells Mod /LPF Urine Bacteria 0 /HPF (0-FEW) Urine Hyaline Casts Moderate /HPF Urine Mucus Slight /LPF Laboratory Tests 01/04/17 11:22 Laboratory Tests 01/04/17 11:22 EKG EKG EKG shows irregular rhythm with rate in the 60s, no ST elevations appreciated, T -wave inversions in V2 V3, left axis deviation noted, QTC 507 will sinus, as interpreted by me. EKG similar to one performed previously area Radiology/Procedures Radiology/Procedures [facility] [address] [place] [address] IMAGING REPORT Signed PATIENT: MARISA RIOJAS ACCOUNT: [id number] : 1945 LOCATION: ER AGE: 71 SEX: F EXAM STATUS: PRE ER ORD. PHYSICIAN: RYAN MATIAS MD REASON: weakness PROCEDURE: PORTABLE CHEST 1V Portable chest, 01/04/2017: History: Follow-up pacemaker placement, irregular heartbeat Comparison is made to a study from 12/25/2016. A left-sided transvenous pacemaker remains in place with 2 leads extending into the right heart. There has been a previous median sternotomy. The heart size is unchanged. The pulmonary vascularity is normal. There is increasing pleural fluid on the left. There is mild underlying left basilar atelectasis. The right lung is clear. No definite right-sided pleural fluid is evident. IMPRESSION: 1. Increasing left-sided pleural effusion. 2. No other significant interval change since 12/25/2016. DICTATED and SIGNED BY: LIUDMILA VILLA MD DATE: 01/04/17 2288 CC: RYAN MATIAS MD; CHRISTINA ROSENBAUM MD ~ Impressions: Dizziness-resolved Course & Med Decision Making Course & Med Decision Making Pertinent Labs and Imaging studies reviewed. (See chart for details) Patient presents with an episode which she states she was hypotensive and tachycardic. Her pacemaker was interrogated and there was no evidence recorded during this time in fact said there was no recurrent events since December 21 in the pacemaker was implanted. Her symptoms were brief and only lasted 5 minutes and have completely resolved. Repeat troponins which is normal. She does have swelling in her albumin level has decreased and she has greater than 300 protein in her urine. Spoke with Dr. Christina Rosenbaum who once 24 hour outpatient urine performed and to have the results follow-up with him. She is instructed bring this outpatient lab. She is agreeable plan being discharged in stable condition at this time since all of her symptoms have resolved. Of note on chest x-ray she does have a slightly larger effusion which again is likely secondary to her hypoalbuminemia. Dragon Disclaimer Dragon Disclaimer This electronic medical record was generated, in whole or in part, using a voice recognition dictation system. Departure Departure Impression: Primary Impression: Anasarca Disposition: 01 HOME, SELF-CARE Condition: STABLE Referrals: CHRISTINA ROSENBAUM MD (PCP) Patient Instructions: Edema, [id number] Additional Instructions: You were seen today for your heart racing and low blood pressure. Your blood work and your EKG did not show any acute abnormality's. We interrogated her pacemaker and this also did not show any signs of a high heart rate or other events. You are also seen for swelling of your entire body and this is likely due to your albumin level being low. I spoke with Dr. Rosenbaum who wanted a 24 hour protein done on your urine. You will need to collect all your urine for the next 24 hours and bring it to the outpatient lab. Please give them the prescription that I wrote for you. You will need to follow-up with Dr. Christina Rosenbaum within the next week. Return ER for any concerns. RYAN MATIAS MD Jan 04, 2017 11:25
[2017-01-04 11:31] LABS: BASO # 0.1 x10^3/uL (0.0-0.2); BASO % 1 % (0-3); EOS % 3 % (0-3); HEMOGLOBIN 9.6 g/dL (12.0-15.5); LYMPH # 1.2 x10^3/uL (1.0-4.8); LYMPH % 15 % (24-48); MEAN CORPUSCULAR HEMOGLOBIN 27 pg (25-35); MEAN CORPUSCULAR HGB CONC 34 g/dL (31-37); MEAN CORPUSCULAR VOLUME 80 fL (79-100); MONO % 6 % (0-9); NEUT % 75 % (31-73); PLATELET COUNT 417 x10^3/uL (140-400); RED BLOOD COUNT 3.49 x10^6/uL (3.50-5.40); WHITE BLOOD COUNT 7.9 x10^3/uL (4.0-11.0)
--- NOTE | 2017-01-04 11:33 | RAD ---
Portable chest, 01/04/2017: History: Follow-up pacemaker placement, irregular heartbeat Comparison is made to a study from 12/25/2016. A left-sided transvenous pacemaker remains in place with 2 leads extending into the right heart. There has been a previous median sternotomy. The heart size is unchanged. The pulmonary vascularity is normal. There is increasing pleural fluid on the left. There is mild underlying left basilar atelectasis. The right lung is clear. No definite right-sided pleural fluid is evident. IMPRESSION: 1. Increasing left-sided pleural effusion. 2. No other significant interval change since 12/25/2016.
[2017-01-04 11:40] LABS: INR 1.3 (0.8-1.1); PROTHROMBIN TIME PATIENT 15.8 SEC (11.7-14.0)
[2017-01-04 11:52] LABS: ANION GAP 10 (6-14); BLOOD UREA NITROGEN 13 mg/dL (7-20); CALCIUM 8.6 mg/dL (8.5-10.1); CARBON DIOXIDE 26 mmol/L (21-32); CHLORIDE 106 mmol/L (98-107); CREATININE 1.6 mg/dL (0.6-1.0); GFR 31.9; GLUCOSE 212 mg/dL (70-99); POTASSIUM 3.1 mmol/L (3.5-5.1); SODIUM 142 mmol/L (136-145)
--- NOTE | 2017-01-04 11:55 | EKG ---
[facility] [address] [place] [address] Test Date: 2017-01-04 Test Time: 11:43:38 Pat Name: MARISA RIOJAS Department: Room: Gender: F Skin Toggler: : 1945 Requested By: RYAN MATIAS Order Number: [id number] Reading MD: Bhupendra Kemp Measurements Intervals [place] Rate: 60 P: TX: QRS: -7 QRSD: 140 T: 27 QT: 502 QTc: 507 Interpretive Statements SR RBBB NON-SPECIFIC ST/T CHANGES Electronically Signed On 01-04-2017 15:39:06 CDT by Bhupendra Kemp
[2017-01-04 11:59] LABS: ALBUMIN 1.5 g/dL (3.4-5.0); ALK PHOS 90 U/L (46-116); ALT (SGPT) 15 U/L (14-59); AST (SGOT) 16 U/L (15-37); DIRECT BILIRUBIN < 0.1 mg/dL (0.0-0.2); MAGNESIUM 1.3 mg/dL (1.8-2.4); TOTAL BILIRUBIN 0.3 mg/dL (0.2-1.0); TOTAL PROTEIN 5.8 g/dL (6.4-8.2)
[2017-01-04 12:04] LABS: CKMB MASS 1.2 ng/mL (0.0-3.6)
[2017-01-04 12:05] LABS: CREATINE KINASE 72 U/L (26-192)
[2017-01-04 12:35] LABS: BILIRUBIN,URINE NEGATIVE (NEG); GLUCOSE,URINE 250 mg/dL (NEG); NITRITE,URINE NEGATIVE (NEG); PROTEIN,URINE >=300 mg/dL (NEG-TRACE); UROBILINOGEN,URINE 0.2 mg/dL (0.2 mg/dL)
[2017-01-04 12:56] LABS: BACTERIA,URINE 0 /HPF (0-FEW); RBC,URINE 0 /HPF (0-2); SQUAMOUS EPITHELIAL CELL,UR MOD /LPF; WBC,URINE 0 /HPF (0-4)
[2017-01-04] MEDS ORDERED: MAGNESIUM SULFATE 2GM 50 ML IV ONE (13:00)
[2017-01-04] MEDS ORDERED: POTASSIUM CHLORIDE 20 MEQ TABLET.ER. PO ONE (13:00)
[2017-01-04 14:17] VITALS: BP 161/98
== END 2017-01-04 16:48 | disposition home or self-care (01) ==
LOC: ER 10:36
DX: R60.1 Generalized edema (principal); R07.89 Other chest pain; I11.9 Hypertensive heart disease without heart failure; E11.9 Type 2 diabetes mellitus without complications; E78.00 Pure hypercholesterolemia, unspecified; I25.10 Atherosclerotic heart disease of native coronary artery without angina pectoris; Z95.5 Presence of coronary angioplasty implant and graft; Z95.0 Presence of cardiac pacemaker; G56.00 Carpal tunnel syndrome, unspecified upper limb; Z89.612 Acquired absence of left leg above knee; Z88.0 Allergy status to penicillin; Z88.1 Allergy status to other antibiotic agents
CPT/HCPCS: 36415; 71010; 80048; 80076; 81001; 82553; 83690; 83735; 83880; 84484; 85025; 85610; 93005; 96365; 99285; J7060

== ENCOUNTER → 2017-01-05 | Outpatient (CLI) | payer MEDICARE, OTHER ==
[2017-01-04 14:17] VITALS: BP 161/98
== END | disposition home or self-care (01) ==
LOC: LAB 17:11
PROVIDERS: ATTEND Family Medicine
DX: R80.9 Proteinuria, unspecified (principal)
CPT/HCPCS: 36415; 84156

== ENCOUNTER 2017-01-14 08:16 | Inpatient (IN) | payer MEDICARE, OTHER ==
[~2017-01-14] VITALS: Ht 170.2 cm; Wt 89.0 kg
--- NOTE | 2017-01-14 08:31 | PHYS DOC ---
Past Medical History Past Medical History: CAD, Diabetes-Type II, High Cholesterol, Heart Disease, Hypertension, Other Additional Past Medical Histor: Carpal Tunnel Past Surgical History: Coronary Bypass Surgery, Pacemaker, Other Additional Past Surgical Histo: LEFT AKA; right carpal tunnel release Alcohol Use: None Drug Use: None Adult General HPI HPI Patient is a 71 year old female with a history of CAD, A. fib, hypertension, diabetes and recent pacemaker placement 4 weeks ago resents to the ED complaining of shortness of breath 2 days. Brought in by EMS. Given breathing treatment in route for shortness of breath. Patient improved. Patient states she was seen on January 04 and diagnosed with anasarca. States symptoms improved and she went home. 24 hour protein show since discharge shoes 13,000. States symptoms returned over the last day and worsened this morning. Denies chest pain, dizziness, weakness, n/v, abdominal pain, headache or fever. Review of Systems Review of Systems Constitutional: Denies fever or chills [] Eyes: Denies change in visual acuity, redness, or eye pain [] HENT: Denies nasal congestion or sore throat [] Respiratory: Denies cough. Complains of shortness of breath [] Cardiovascular: No additional information not addressed in HPI [] GI: Denies abdominal pain, nausea, vomiting, bloody stools or diarrhea [] : Denies dysuria or hematuria [] Musculoskeletal: Denies back pain or joint pain [] Integument: Denies rash or skin lesions [] Neurologic: Denies headache, focal weakness or sensory changes [] Endocrine: Denies polyuria or polydipsia [] Allergies Allergies Allergies Coded Allergies Type Severity Reaction Last Updated Verified Penicillins Allergy Intermediate 01/05/16 Yes bacitracin Allergy Intermediate 01/05/16 Yes ciprofloxacin Allergy Intermediate 11/02/13 Yes erythromycin base Allergy Intermediate 01/05/16 Yes neomycin Allergy Intermediate 01/05/16 Yes niacin Allergy Intermediate 04/14/14 Yes polymyxin B Allergy Intermediate 11/02/13 Yes Physical Exam Physical Exam Constitutional: Well developed, well nourished, no acute distress, non-toxic appearance. [] HENT: Normocephalic, atraumatic, bilateral external ears normal, oropharynx moist, no oral exudates, nose normal. [] Eyes: PERRLA, EOMI, conjunctiva normal, no discharge. [] Neck: Normal range of motion, no tenderness, supple, no stridor. [] Cardiovascular:Heart rate regular rhythm, no murmur [] Lungs & Thorax: Bilateral breath sounds clear to auscultation [] Abdomen: Bowel sounds normal, soft, no tenderness, no masses, no pulsatile masses. [] Skin: Warm, dry, no erythema, no rash. [] Back: No tenderness, no CVA tenderness. [] Extremities: No tenderness, no cyanosis, no clubbing, ROM intact, amputation to right leg. 2+ pitting edema to left leg. [] Neurologic: Alert and oriented X 3, normal motor function, normal sensory function, no focal deficits noted. [] Psychologic: Affect normal, judgement normal, mood normal. [] Current Patient Data Vital Signs Vital Signs Date Time Temp Pulse Resp B/P (MAP) Pulse Ox O2 Delivery O2 Flow Rate FiO2 01/14/17 09:10 164/71 (102) 01/14/17 09:03 98.1 18 96 Nasal Cannula 2.0 98.1 Lab Values Laboratory Tests Test 01/14/17 08:50 01/14/17 09:30 White Blood Count 7.9 x10^3/uL (4.0-11.0) Red Blood Count 3.91 x10^6/uL (3.50-5.40) Hemoglobin 10.6 g/dL (12.0-15.5) L Hematocrit 31.8 % (36.0-47.0) L Mean Corpuscular Volume 81 fL (79-100) Mean Corpuscular Hemoglobin 27 pg (25-35) Mean Corpuscular Hemoglobin Concent 33 g/dL (31-37) Red Cell Distribution Width 16.0 % (11.5-14.5) H Platelet Count 483 x10^3/uL (140-400) H Neutrophils (%) (Auto) 68 % (31-73) Lymphocytes (%) (Auto) 20 % (24-48) L Monocytes (%) (Auto) 8 % (0-9) Eosinophils (%) (Auto) 4 % (0-3) H Basophils (%) (Auto) 0 % (0-3) Neutrophils # (Auto) 5.4 x10^3uL (1.8-7.7) Lymphocytes # (Auto) 1.6 x10^3/uL (1.0-4.8) Monocytes # (Auto) 0.6 x10^3/uL (0.0-1.1) Eosinophils # (Auto) 0.3 x10^3/uL (0.0-0.7) Basophils # (Auto) 0.0 x10^3/uL (0.0-0.2) Reticulocyte Count (auto) 2.5 % (0.5-2.5) Prothrombin Time 14.0 SEC (11.7-14.0) Prothrombin Time INR 1.2 (0.8-1.1) H PTT 34 SEC (24-38) Sodium Level 140 mmol/L (136-145) Potassium Level 3.3 mmol/L (3.5-5.1) L Chloride Level 103 mmol/L (98-107) Carbon Dioxide Level 28 mmol/L (21-32) Anion Gap 9 (6-14) Blood Urea Nitrogen 11 mg/dL (7-20) Creatinine 1.5 mg/dL (0.6-1.0) H Estimated GFR (Cockcroft-Gault) 34.3 BUN/Creatinine Ratio 7 (6-20) Glucose Level 187 mg/dL (70-99) H Calcium Level 8.6 mg/dL (8.5-10.1) Iron Level 50 ug/dL (50-170) Total Iron Binding Capacity 241 ug/dL (250-450) L Iron Saturation 21 % (15-34) Ferritin 40 ng/mL (8-252) Total Bilirubin 0.4 mg/dL (0.2-1.0) Aspartate Amino Transferase (AST) 30 U/L (15-37) Alanine Aminotransferase (ALT) 20 U/L (14-59) Alkaline Phosphatase 107 U/L (46-116) Creatine Kinase 156 U/L (26-192) Creatine Kinase MB (Mass) 1.8 ng/mL (0.0-3.6) Creatine Kinase MB Relative Index 1.2 % (0-4) Troponin I Quantitative 0.028 ng/mL (0.000-0.055) WN-Wqo-G-Type Natriuretic Peptide 3890 pg/mL (0-124) H Total Protein 6.5 g/dL (6.4-8.2) Albumin 1.7 g/dL (3.4-5.0) L Albumin/Globulin Ratio 0.4 (1.0-1.7) L Urine Collection Type Unknown Urine Color Yellow Urine Clarity Clear Urine pH 6.5 Urine Specific [place] 1.020 Urine Protein >=300 mg/dL (NEG-TRACE) Urine Glucose (UA) 250 mg/dL (NEG) Urine Ketones (Stick) Negative mg/dL (NEG) Urine Blood Trace (NEG) Urine Nitrite Negative (NEG) Urine Bilirubin Negative (NEG) Urine Urobilinogen Dipstick 0.2 mg/dL (0.2 mg/dL) Urine Leukocyte Esterase Negative (NEG) Urine RBC 1-2 /HPF (0-2) Urine WBC 1-4 /HPF (0-4) Urine Squamous Epithelial Cells None /LPF Urine Bacteria Few /HPF (0-FEW) Urine Hyaline Casts Few /HPF Laboratory Tests 01/14/17 08:50 Laboratory Tests 01/14/17 08:50 EKG EKG [] Radiology/Procedures Radiology/Procedures PROCEDURE: PORTABLE CHEST 1V Indication shortness of breath. A single view of the chest was obtained and is compared to an examination 10 days earlier. Postoperative changes and a bipolar cardiac pacing device are noted. The right lung is clear. There is a modest increase in the amount of left pleural fluid relative to the previous exam. IMPRESSION: Increasing left pleural fluid Course & Med Decision Making Course & Med Decision Making Lasix given in the ED. Patient improved. Discussed case with patient's PCP, Dr. Pritchard. Agrees with evaluation and plan and to admit and further manage patient.[] Pertinent Labs and Imaging studies reviewed. (See chart for details) [] Dragon Disclaimer Dragon Disclaimer This electronic medical record was generated, in whole or in part, using a voice recognition dictation system. Departure Departure Impression: Primary Impression: Shortness of breath Additional Impression: Pleural effusion, left Disposition: ADMITTED INPATIENT Admitting Physician: Andrew Pritchard Condition: STABLE Referrals: ANDREW PRITCHARD MD (PCP) Problem Qualifiers MATTHEW COLE Jan 14, 2017 08:31
--- NOTE | 2017-01-14 08:48 | EKG ---
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
--- NOTE | 2017-01-14 08:58 | RAD ---
Indication shortness of breath. A single view of the chest was obtained and is compared to an examination 10 days earlier. Postoperative changes and a bipolar cardiac pacing device are noted. The right lung is clear. There is a modest increase in the amount of left pleural fluid relative to the previous exam. IMPRESSION: Increasing left pleural fluid
[2017-01-14 09:10] LABS: BASO % 0 % (0-3); EOS % 4 % (0-3); HEMATOCRIT 31.8 % (36.0-47.0); HEMOGLOBIN 10.6 g/dL (12.0-15.5); LYMPH # 1.6 x10^3/uL (1.0-4.8); LYMPH % 20 % (24-48); MEAN CORPUSCULAR HEMOGLOBIN 27 pg (25-35); MEAN CORPUSCULAR HGB CONC 33 g/dL (31-37); MEAN CORPUSCULAR VOLUME 81 fL (79-100); MONO % 8 % (0-9); NEUT % 68 % (31-73); PLATELET COUNT 483 x10^3/uL (140-400); RED BLOOD COUNT 3.91 x10^6/uL (3.50-5.40); WHITE BLOOD COUNT 7.9 x10^3/uL (4.0-11.0)
--- NOTE | 2017-01-14 09:19 | RAD ---
Indication pain. Grayscale color Doppler and spectral imaging was performed. Examination was targeted to the veins of the right lower extremity. The common femoral, femoral and popliteal vessels demonstrate normal flow compressibility and augmentation. No thrombus is seen. The visualized calf veins appeared unremarkable. IMPRESSION: Negative right lower extremity venous analysis for DVT
[2017-01-14 09:20] LABS: CALCIUM 8.6 mg/dL (8.5-10.1); CREATININE 1.5 mg/dL (0.6-1.0); GFR 34.3; POTASSIUM 3.3 mmol/L (3.5-5.1)
[2017-01-14 09:26] LABS: ALBUMIN 1.7 g/dL (3.4-5.0); ALBUMIN/GLOBULIN RATIO 0.4 (1.0-1.7); TOTAL BILIRUBIN 0.4 mg/dL (0.2-1.0); TOTAL PROTEIN 6.5 g/dL (6.4-8.2)
[2017-01-14 09:27] LABS: INR 1.2 (0.8-1.1)
[2017-01-14 09:33] LABS: CKMB MASS 1.8 ng/mL (0.0-3.6)
[2017-01-14] MEDS ORDERED: FUROSEMIDE 40 MG/4 ML VIAL. IVP ONE (09:45)
[2017-01-14 10:01] LABS: BILIRUBIN,URINE NEGATIVE (NEG); GLUCOSE,URINE 250 mg/dL (NEG); NITRITE,URINE NEGATIVE (NEG); PH,URINE 6.5; PROTEIN,URINE >=300 mg/dL (NEG-TRACE); UROBILINOGEN,URINE 0.2 mg/dL (0.2 mg/dL)
[2017-01-14 10:20] LABS: BACTERIA,URINE FEW /HPF (0-FEW)
[2017-01-14 12:34] VITALS: BP 177/90
--- NOTE | 2017-01-14 12:50 | PDOC2 ---
BEBETO SILVA CHIEF LEARNING OFFICER 01/14/17 1249: CARDIAC CONSULT DATE OF CONSULT Date of Consult DATE: 01/14/17 TIME: 12:30 REASON FOR CONSULT Reason for Consult: Shortness of breath REFERRING PHYSICIAN Referring Physician: Dr. Ribeiro SOURCE Source: Chart review, Patient HISTORY OF PRESENT ILLNESS HISTORY OF PRESENT ILLNESS This is a 71 yo female who presented with complaints of shortness of breath and diffuse edema. Patient reports symptoms have been presently for the last couple of weeks; progressively worsening. Much worse the last 24-48hrs. Has developed significant swelling in RLE, abdomen, left breast and left flank area. Denies any chest pain, palpitations, dizziness, diaphoresis, or nausea/vomiting. No recent fevers or illness. Recent treated in the ED for anasarca and was discharged home in stable condition. Reports symptoms have only progressed since discharge. Reported compliance with medications. Labs notable for significant hypoalbuminemia. Urinalysis earlier this month with significant proteinuria. PAST MEDICAL HISTORY Past Medical History Cardiovascular: AFIB, CAD (with CABG - 2008 and PCI/stent to left main), HTN, Hyperlipidemia, Other (PVD with stent to right SFA and stents to bilateral renal arteries), mild to mod AI, SSS/tachy-shantell syndrome s/p PPM Pulmonary: No pertinent hx CENTRAL NERVOUS SYSTEM: Other (none) GI: No pertinent hx Heme/Onc: No pertinent hx Hepatobiliary: No pertinent hx Psych: No pertinent hx Musculoskeletal: Osteoarthritis Rheumatologic: No pertinent hx Infectious disease: No pertinent hx ENT: No pertinent hx Renal/: Chronic renal insuff, Right renal artery showed 100% chronic occlusion within the stent in the proximal segment. Left renal artery showed 30 % in-stent restenosis within the stent in the proximal segment. Endocrine: Diabetes (type II) Dermatology: No pertinent hx PAST SURGICAL HISTORY Past Surgical History CABG (2008), Other (ectopic ; left [facility]; left hip surgery), 2015 renal and femoral angiogram, 03/2016 Orbital atherectomy/balloon TR[employer]ER/stent placement to the right superficial femoral artery, 07/2016 PCI/LARA to LCx, PPM implantation FAMILY HISTORY Family History: Coronary Artery Disease SOCIAL HISTORY Social History Social History Smoke: Quit (2008) ALCOHOL: none Drugs: None CURRENT MEDICATIONS CURRENT MEDICATIONS Current Medications Medications (Trade) Dose Ordered Sig/Shilo Route PRN Reason Start Time Stop Time Status Last Admin Dose Admin Furosemide (Lasix) 40 mg 1X ONCE IVP 01/14/17 09:45 01/14/17 09:46 DC 01/14/17 10:11 ALLERGIES ALLERGIES: Coded Allergies: Penicillins (Verified Allergy, Intermediate, 01/05/16) bacitracin (Verified Allergy, Intermediate, 01/05/16) ciprofloxacin (Verified Allergy, Intermediate, 11/02/13) erythromycin base (Verified Allergy, Intermediate, 01/05/16) neomycin (Verified Allergy, Intermediate, 01/05/16) niacin (Verified Allergy, Intermediate, 04/14/14) polymyxin B (Verified Allergy, Intermediate, 11/02/13) ROS Review of System 14 point ROS conducted with pertinent positives noted above in HPI. PHYSICAL EXAM PHYSICAL EXAM General: Alert, Oriented X3, Cooperative, No acute distress HEENT: Atraumatic, Mucous membr. moist/pink Lungs: Clear to auscultation, diminished left base, left pectoral PPM site incision well-approximated and well-healed Heart: Regular rate, Normal S1, Normal S2, Other (4/6 systolic murmur) Abdomen: Soft, No tenderness, ascites, Extremities: No cyanosis, 2+ RLE edema. Left AKA, anasarca Skin: No breakdown, No significant lesion Neuro: Normal speech, Sensation intact Psych/Mental Status: Mental status NL, Mood NL MUSCULOSKELETAL: Osteoarthritic changes both hands VITALS VITALS Vital Signs Date Time Temp Pulse Resp B/P (MAP) Pulse Ox O2 Delivery O2 Flow Rate FiO2 01/14/17 10:58 71 163/87 (112) 98 Nasal Cannula 2.0 01/14/17 10:10 20 01/14/17 09:03 98.1 98.1 LABS Lab: Laboratory Tests Test 01/14/17 08:50 01/14/17 09:30 White Blood Count 7.9 x10^3/uL (4.0-11.0) Red Blood Count 3.91 x10^6/uL (3.50-5.40) Hemoglobin 10.6 g/dL (12.0-15.5) Hematocrit 31.8 % (36.0-47.0) Mean Corpuscular Volume 81 fL (79-100) Mean Corpuscular Hemoglobin 27 pg (25-35) Mean Corpuscular Hemoglobin Concent 33 g/dL (31-37) Red Cell Distribution Width 16.0 % (11.5-14.5) Platelet Count 483 x10^3/uL (140-400) Neutrophils (%) (Auto) 68 % (31-73) Lymphocytes (%) (Auto) 20 % (24-48) Monocytes (%) (Auto) 8 % (0-9) Eosinophils (%) (Auto) 4 % (0-3) Basophils (%) (Auto) 0 % (0-3) Neutrophils # (Auto) 5.4 x10^3uL (1.8-7.7) Lymphocytes # (Auto) 1.6 x10^3/uL (1.0-4.8) Monocytes # (Auto) 0.6 x10^3/uL (0.0-1.1) Eosinophils # (Auto) 0.3 x10^3/uL (0.0-0.7) Basophils # (Auto) 0.0 x10^3/uL (0.0-0.2) Prothrombin Time 14.0 SEC (11.7-14.0) Prothromb Time International Ratio 1.2 (0.8-1.1) Activated Partial Thromboplast Time 34 SEC (24-38) Sodium Level 140 mmol/L (136-145) Potassium Level 3.3 mmol/L (3.5-5.1) Chloride Level 103 mmol/L (98-107) Carbon Dioxide Level 28 mmol/L (21-32) Anion Gap 9 (6-14) Blood Urea Nitrogen 11 mg/dL (7-20) Creatinine 1.5 mg/dL (0.6-1.0) Estimated GFR (Cockcroft-Gault) 34.3 BUN/Creatinine Ratio 7 (6-20) Glucose Level 187 mg/dL (70-99) Calcium Level 8.6 mg/dL (8.5-10.1) Total Bilirubin 0.4 mg/dL (0.2-1.0) Aspartate Amino Transf (AST/SGOT) 30 U/L (15-37) Alanine Aminotransferase (ALT/SGPT) 20 U/L (14-59) Alkaline Phosphatase 107 U/L (46-116) Creatine Kinase 156 U/L (26-192) Creatine Kinase MB (Mass) 1.8 ng/mL (0.0-3.6) Creatine Kinase MB Relative Index 1.2 % (0-4) Troponin I Quantitative 0.028 ng/mL (0.000-0.055) Total Protein 6.5 g/dL (6.4-8.2) Albumin 1.7 g/dL (3.4-5.0) Albumin/Globulin Ratio 0.4 (1.0-1.7) Urine Collection Type Unknown Urine Color Yellow Urine Clarity Clear Urine pH 6.5 Urine Specific [place] 1.020 Urine Protein >=300 mg/dL (NEG-TRACE) Urine Glucose (UA) 250 mg/dL (NEG) Urine Ketones (Stick) Negative mg/dL (NEG) Urine Blood Trace (NEG) Urine Nitrite Negative (NEG) Urine Bilirubin Negative (NEG) Urine Urobilinogen Dipstick 0.2 mg/dL (0.2 mg/dL) Urine Leukocyte Esterase Negative (NEG) Urine RBC 1-2 /HPF (0-2) Urine WBC 1-4 /HPF (0-4) Urine Squamous Epithelial Cells None /LPF Urine Bacteria Few /HPF (0-FEW) Urine Hyaline Casts Few /HPF ECHOCARDIOGRAM ECHOCARDIOGRAM <Conclusion> Left ventricle systolic function is normal. The Ejection Fraction is 60-65%. Calculated aortic valve area is 1.0 cm2 with maximum pressure gradient of 51 mmHg and mean pressure gradient of 25 mmHg. Doppler and color-flow analysis revealed moderate aortic stenosis but visually the valve appears to be severely stenotic. DATE: 11/15/16 1312 STRESS TEST STRESS TEST Conclusion 1. Three vessel CAD 2. Patent GUTIERREZ to LAD 3. Successful PCI of the LCx with implantation of a Xience 3.25mmx 18 LARA. Recommendations Aggressive Medical Therapy ASA 81mg daily indefinitely Plavix 75mg daily indefinitely if tolerated, but atleast 1 full year. DATE: 08/16/16 1629 ASSESSMENT/PLAN ASSESSMENT/PLAN 1. Mild acute on chronic diastolic CHF; LVEF 60-65%. Improved with Lasix. Continue diuresis with monitoring of renal function 2. Dyspnea; secondary to left-sided effusion. Edema more localized to left side. Consider ultrasound for further evaluation. Will d/w primary cardiology. 3. 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 Recent PCI/LARA to LCx, stable. Continue secondary prevention measures 4. 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 PAFIB: maintaining SR with intermittent pacing. Continue Amiodarone for rhythm maintenance and Eliquis for stroke prevention 6. CKD3 with known ANNA. Cr stable at 1.5 7. PAD: recent RSFA percutaneous revascularization. stable 8. Known ANNA, chronic total occlusion to right and 30% to left in-stent restenosis, opted for medical treatment. Stable 9. HTN: resume home antiHTN therapy 10. DM2/HLP; statin 11. Valvular disease: mild MR/TR, mod , stable 12. Proteinuria/Hypoalbuminemia; contributing to anasarca. consider albumin replacement followed by Lasix. Nephrology consulted Problems: WILLI LINDSEY MD 01/15/17 7033: CARDIAC CONSULT ALLERGIES ALLERGIES: Coded Allergies: Penicillins (Verified Allergy, Intermediate, 01/05/16) bacitracin (Verified Allergy, Intermediate, 01/05/16) ciprofloxacin (Verified Allergy, Intermediate, 11/02/13) erythromycin base (Verified Allergy, Intermediate, 01/05/16) neomycin (Verified Allergy, Intermediate, 01/05/16) niacin (Verified Allergy, Intermediate, 04/14/14) polymyxin B (Verified Allergy, Intermediate, 11/02/13) ASSESSMENT/PLAN ASSESSMENT/PLAN Patient seen and examined. Agree with MANAGER STORAGE's assessment and plan. Asymmetric edema probably from dependant edema. Hypoalbuminemia causing anasarca. Mild acute on chronic diastolic HF improving with diuresis. Venous duplex right LE and left UE negative for DVT CAD, PAD, SSS/PPM status stable Maintaining sinus rhythm with amiodarone. Continue eliquis Thank you for your consultation Problems: BEBETO SILVA APRN Jan 14, 2017 12:49 WILLI LINDSEY MD Jan 15, 2017 18:49
[2017-01-14] MEDS ORDERED: amLODIPine BESYLATE 5 MG TABLET PO SCH (13:00)
[2017-01-14] MEDS ORDERED: ASCORBIC ACID 500 MG TABLET ONE (13:00)
[2017-01-14] MEDS ORDERED: POTASSIUM CHLORIDE 20 MEQ TABLET.ER. PO ONE (13:15)
[2017-01-14] MEDS: VITAMIN B COMPLEX TABLET. PO SCH (13:25)
[2017-01-14] MEDS: CLOPIDOGREL BISULFATE 75 MG TABLET PO SCH (13:25)
[2017-01-14] MEDS: ISOSORBIDE MONONITRATE ER 30 MG TAB.ER.24H PO SCH (13:26)
[2017-01-14] MEDS: ASCORBIC ACID 500 MG TABLET PO SCH (13:26)
[2017-01-14] MEDS: CHOLECALCIFEROL (VITAMIN D3) 1,000 UNIT TABLET PO SCH (13:27)
[2017-01-14] MEDS: OMEGA-3 FATTY ACIDS/FISH OIL 1,000 MG CAPSULE. PO SCH (13:27)
[2017-01-14] MEDS: MAGNESIUM OXIDE 400 MG TABLET PO SCH (13:27)
[2017-01-14] MEDS: CYANOCOBALAMIN (VITAMIN B-12) 1,000 MCG TABLET. PO SCH (13:27)
[2017-01-14] MEDS: POTASSIUM CHLORIDE 10 MEQ TABLET.ER. PO SCH ×2 (13:28→17:48)
[2017-01-14] MEDS: ASPIRIN CHEWABLE 81 MG TABLET. PO SCH (13:28)
[2017-01-14] MEDS: AMIODARONE HCL 200 MG TABLET. PO SCH (13:28)
[2017-01-14] MEDS: LABETALOL HCL 200 MG TABLET PO SCH ×2 (13:35→21:25)
[2017-01-14] MEDS ORDERED: HYDROcodone/APAP 5/325MG 1 TAB TABLET PO SCH (14:00)
--- NOTE | 2017-01-14 14:01 | PDOC2 ---
CONSULT Date of Consult Date of Consult DATE: 01/14/17 TIME: 13:52 Reason for Consult Reason for Consult: CKD III Referring Physician Referring Physician: Dr Waters Identification/Chief Complaint Chief Complaint ansarca Problems: Source Source: Chart review, Patient Past Medical History Cardiovascular: AFIB, CAD, HTN, Hyperlipidemia, Aortic stenosis, Other Pulmonary: No pertinent hx CENTRAL NERVOUS SYSTEM: Other GI: No pertinent hx Heme/Onc: No pertinent hx Hepatobiliary: No pertinent hx Psych: No pertinent hx Musculoskeletal: Osteoarthritis Rheumatologic: No pertinent hx Infectious disease: No pertinent hx Renal/: Chronic renal insuff Endocrine: Diabetes Past Surgical History Past Surgical History: CABG, Other Family History Family History: Coronary Artery Disease Social History Quit ALCOHOL: none Drugs: None Lives: with Family Domestic Violence: Neg Current Medications Current Medications Current Medications Furosemide (Lasix) 40 mg 1X ONCE IVP Last administered on 01/14/17 10:11; Start 01/14/17 at 09:45; Stop 01/14/17 at 09:46; Status DC Alprazolam (Xanax) 0.5 mg TID PRN PRN PO ANXIETY; Start 01/14/17 at 12:45 Amiodarone HCl (Cordarone) 200 mg DAILY PO Last administered on 01/14/17 13:28 ; Start 01/14/17 at 13:00 Amlodipine Besylate (Norvasc) 10 mg DAILY PO ; Start 01/14/17 at 13:00; Stop at 13:00; Status DC Apixaban (Eliquis) 5 mg BID76 PO ; Start 01/14/17 at 18:00 Aspirin (Children'S Aspirin) 81 mg DAILY PO Last administered on 01/14/17 13: 28; Start 01/14/17 at 13:00 Atorvastatin Calcium (Lipitor) 40 mg HS PO ; Start 01/14/17 at 21:00 Clopidogrel Bisulfate (Plavix) 75 mg DAILY PO Last administered on 01/14/17 13 :25; Start 01/14/17 at 13:00 Acetaminophen/ Hydrocodone Bitart (Lortab 5/325) 1 tab TID PO ; Start 01/14/17 at 14:00; Stop 01/14/17 at 14:00; Status DC Labetalol HCl (Trandate) 200 mg BID PO Last administered on 01/14/17 13:35; Start 01/14/17 at 13:00 Ascorbic Acid (Vitamin C) 1,000 mg DAILY PO Last administered on 01/14/17 13: 26; Start 01/14/17 at 13:00 Vitamin D (Vitamin D3) 2,000 unit DAILY PO Last administered on 01/14/17 13:27 ; Start 01/14/17 at 13:00 Cyanocobalamin (Vitamin B-12) 5,000 mcg DAILY PO Last administered on 13:27; Start 01/14/17 at 13:00 Isosorbide Mononitrate (Imdur) 120 mg DAILY PO Last administered on 01/14/17 13:26; Start 01/14/17 at 13:00 Magnesium Oxide (Magnesium Oxide) 400 mg DAILY PO Last administered on 13:27; Start 01/14/17 at 13:00 Fish Oil (Fish Oil) 2,000 mg DAILY PO Last administered on 01/14/17 13:27; Start 01/14/17 at 13:00 Potassium Chloride (Klor-Con) 10 meq TIDWMEALS PO Last administered on 13:28; Start 01/14/17 at 13:00 Vitamin B Complex (Flaquito B) 1 tab DAILY PO Last administered on 01/14/17 13:25 ; Start 01/14/17 at 13:00 Amlodipine Besylate (Norvasc) 10 mg DAILY PO ; Start 01/14/17 at 13:00 Potassium Chloride (Klor-Con) 40 meq 1X ONCE PO Last administered on 13:27; Start 01/14/17 at 13:15; Stop 01/14/17 at 13:16; Status DC Acetaminophen/ Hydrocodone Bitart (Lortab 5/325) 1 tab PRN TID PRN PO PAIN MILD TO MOD; Start 01/14/17 at 14:00 Info (Anti-Coagulation Monitoring By Pharmacy) 1 each PRN DAILY PRN MC SEE COMMENTS; Start 01/14/17 at 13:30 Active Scripts Active Amiodarone Hcl 200 Mg Tablet 1 Tab PO DAILY Amlodipine Besylate 5 Mg Tablet 10 Mg PO DAILY 30 Days Reported Xanax (Alprazolam) 0.5 Mg Tablet 1 Tab PO TID PRN PRN Magnesium (Magnesium Oxide) 400 Mg Capsule 1 Cap PO DAILY Labetalol Hcl 200 Mg Tablet 1 Tab PO BID Potassium Chloride 10 Meq Capsule.er 10 Meq PO TID Eliquis (Apixaban) 5 Mg Tablet 5 Mg PO BID76 Vitamin B12 (Cyanocobalamin (Vitamin B-12)) 5,000 Mcg Tab.rapdis 5,000 Mcg PO DAILY Hydrocodone-Apap 5-325 (Hydrocodone Bit/Acetaminophen) 1 Each Tablet 1 Tab PO TID Centrum Silver Women Tablet (Multivits-Min/Iron/FA/Lutein) 1 Each Tablet 1 Each PO Fish Oil 1,000 Mg Softgel ([place]-3 Fatty Acids/Fish Oil) 1 Each Capsule 2 Each PO DAILY Paz-C 1,000 Mg Tablet (Ascorbate Calcium/Bioflavonoid) 1 Each Tablet 1 Each PO DAILY Atorvastatin Calcium 40 Mg Tablet 40 Mg PO HS Vitamin D3 (Cholecalciferol (Vitamin D3)) 1,000 Unit Capsule 2,000 Unit PO DAILY Aspirin 81 Mg Tab.chew 81 Mg PO DAILY Imdur (Isosorbide Mononitrate) 120 Mg Tab.er.24h 120 Mg PO DAILY Clopidogrel (Clopidogrel Bisulfate) 75 Mg Tablet 75 Mg PO DAILY Allergies Allergies: Coded Allergies: Penicillins (Verified Allergy, Intermediate, 01/05/16) bacitracin (Verified Allergy, Intermediate, 01/05/16) ciprofloxacin (Verified Allergy, Intermediate, 11/02/13) erythromycin base (Verified Allergy, Intermediate, 01/05/16) neomycin (Verified Allergy, Intermediate, 01/05/16) niacin (Verified Allergy, Intermediate, 04/14/14) polymyxin B (Verified Allergy, Intermediate, 11/02/13) ROS Review of System GEN: no Fevers no Chills EYES: no Visual Complaints ENT: no EN Drainage no Hearing deficiets CVS: no Orthopnea no CP + Edema nd Anasarca RESP: no SOB no PEÑA GI: no Nausea no Vomiting : no Dysuria no Urgency HEME: no easy bruising no Palp Ly Nodes NEURO o Focal Weakness no Sz PSYCH: no Suicidal Ideation no Depression SKIN: no Rashes ENDO: no Polyuria or Polydipsia no Hot/Cold Intolerance MU SK: ch Arthraigia no Myalgia Physical Exam Physical Exam General Appearance: Awake Alert Oriented x 3 In no Distress Eyes: VIsion Unchanged Conjunctiva Normal EN: No EN Drainage Mucous Memb. moist Neck: no JVD min JVP Supple no Thyromegaly CVS: S1 S2 + Murmur No Gallop No Rub ++ Edema Resp: rare Rales no Rhonchi no Acc. Muscle use GI: BAS +ve NO Bruit Non Tender Non Distended : no CVA tenderness; no Suprapubic Tenderness SKIN: no Rashes Breast Exam deferred Mu.Sk: Adequate ROM no Muscle Atrophy Left AKA Heme: Unable to palpate Obvious LAD no palp Splenomegaly NEURO: Good Strength and Tone Cranial Nerves II - XII grossly intact Psych: not Depressed no Active hallucination Vital Signs Vital Signs Date Time Temp Pulse Resp B/P (MAP) Pulse Ox O2 Delivery O2 Flow Rate FiO2 01/14/17 13:35 75 160/70 01/14/17 12:34 97.4 18 97 Nasal Cannula 2.0 97.4 Assessment & Plan CKD III - suspect DM/ HTNsive /NS and possible Smoking related GN ; Current FLuid and E-lyte status does not necessitate emergent need for Dialysis. Will re-evaluate for Dialysis in am Nephrotic synd - May need Kidney Bx; requatntiate protein and check PEPs - suspect due to HTnsive/DM /NS Anemia: chech iron; may need Epogen Transfuse as needed. Renaovascular HTN: s/p ami Renal artery stents. Current BP meds reviewed. See orders for changes. Localised edema on left arm and breast - suspect due to PM placement - ? need for Venoplasty? Low K - check mag and repalced as ordered Sev HypoAlbuminemia - due to #[address] Left [address] eff- consider Pulm eval -ct Diuresis; ? related to PM palcement Anasarca - Diuresis as needed DM with NEhpropahty - cannot be ruled out. Discussed Plan of Care and prognosis etc. at length with family. Labs Labs Laboratory Tests Test 01/14/17 08:50 01/14/17 09:30 White Blood Count 7.9 x10^3/uL (4.0-11.0) Red Blood Count 3.91 x10^6/uL (3.50-5.40) Hemoglobin 10.6 g/dL (12.0-15.5) Hematocrit 31.8 % (36.0-47.0) Mean Corpuscular Volume 81 fL (79-100) Mean Corpuscular Hemoglobin 27 pg (25-35) Mean Corpuscular Hemoglobin Concent 33 g/dL (31-37) Red Cell Distribution Width 16.0 % (11.5-14.5) Platelet Count 483 x10^3/uL (140-400) Neutrophils (%) (Auto) 68 % (31-73) Lymphocytes (%) (Auto) 20 % (24-48) Monocytes (%) (Auto) 8 % (0-9) Eosinophils (%) (Auto) 4 % (0-3) Basophils (%) (Auto) 0 % (0-3) Neutrophils # (Auto) 5.4 x10^3uL (1.8-7.7) Lymphocytes # (Auto) 1.6 x10^3/uL (1.0-4.8) Monocytes # (Auto) 0.6 x10^3/uL (0.0-1.1) Eosinophils # (Auto) 0.3 x10^3/uL (0.0-0.7) Basophils # (Auto) 0.0 x10^3/uL (0.0-0.2) Prothrombin Time 14.0 SEC (11.7-14.0) Prothromb Time International Ratio 1.2 (0.8-1.1) Activated Partial Thromboplast Time 34 SEC (24-38) Sodium Level 140 mmol/L (136-145) Potassium Level 3.3 mmol/L (3.5-5.1) Chloride Level 103 mmol/L (98-107) Carbon Dioxide Level 28 mmol/L (21-32) Anion Gap 9 (6-14) Blood Urea Nitrogen 11 mg/dL (7-20) Creatinine 1.5 mg/dL (0.6-1.0) Estimated GFR (Cockcroft-Gault) 34.3 BUN/Creatinine Ratio 7 (6-20) Glucose Level 187 mg/dL (70-99) Calcium Level 8.6 mg/dL (8.5-10.1) Total Bilirubin 0.4 mg/dL (0.2-1.0) Aspartate Amino Transf (AST/SGOT) 30 U/L (15-37) Alanine Aminotransferase (ALT/SGPT) 20 U/L (14-59) Alkaline Phosphatase 107 U/L (46-116) Creatine Kinase 156 U/L (26-192) Creatine Kinase MB (Mass) 1.8 ng/mL (0.0-3.6) Creatine Kinase MB Relative Index 1.2 % (0-4) Troponin I Quantitative 0.028 ng/mL (0.000-0.055) Total Protein 6.5 g/dL (6.4-8.2) Albumin 1.7 g/dL (3.4-5.0) Albumin/Globulin Ratio 0.4 (1.0-1.7) Urine Collection Type Unknown Urine Color Yellow Urine Clarity Clear Urine pH 6.5 Urine Specific [place] 1.020 Urine Protein >=300 mg/dL (NEG-TRACE) Urine Glucose (UA) 250 mg/dL (NEG) Urine Ketones (Stick) Negative mg/dL (NEG) Urine Blood Trace (NEG) Urine Nitrite Negative (NEG) Urine Bilirubin Negative (NEG) Urine Urobilinogen Dipstick 0.2 mg/dL (0.2 mg/dL) Urine Leukocyte Esterase Negative (NEG) Urine RBC 1-2 /HPF (0-2) Urine WBC 1-4 /HPF (0-4) Urine Squamous Epithelial Cells None /LPF Urine Bacteria Few /HPF (0-FEW) Urine Hyaline Casts Few /HPF Laboratory Tests Test 01/14/17 08:50 01/14/17 09:30 White Blood Count 7.9 x10^3/uL (4.0-11.0) Red Blood Count 3.91 x10^6/uL (3.50-5.40) Hemoglobin 10.6 g/dL (12.0-15.5) Hematocrit 31.8 % (36.0-47.0) Mean Corpuscular Volume 81 fL (79-100) Mean Corpuscular Hemoglobin 27 pg (25-35) Mean Corpuscular Hemoglobin Concent 33 g/dL (31-37) Red Cell Distribution Width 16.0 % (11.5-14.5) Platelet Count 483 x10^3/uL (140-400) Neutrophils (%) (Auto) 68 % (31-73) Lymphocytes (%) (Auto) 20 % (24-48) Monocytes (%) (Auto) 8 % (0-9) Eosinophils (%) (Auto) 4 % (0-3) Basophils (%) (Auto) 0 % (0-3) Neutrophils # (Auto) 5.4 x10^3uL (1.8-7.7) Lymphocytes # (Auto) 1.6 x10^3/uL (1.0-4.8) Monocytes # (Auto) 0.6 x10^3/uL (0.0-1.1) Eosinophils # (Auto) 0.3 x10^3/uL (0.0-0.7) Basophils # (Auto) 0.0 x10^3/uL (0.0-0.2) Prothrombin Time 14.0 SEC (11.7-14.0) Prothromb Time International Ratio 1.2 (0.8-1.1) Activated Partial Thromboplast Time 34 SEC (24-38) Sodium Level 140 mmol/L (136-145) Potassium Level 3.3 mmol/L (3.5-5.1) Chloride Level 103 mmol/L (98-107) Carbon Dioxide Level 28 mmol/L (21-32) Anion Gap 9 (6-14) Blood Urea Nitrogen 11 mg/dL (7-20) Creatinine 1.5 mg/dL (0.6-1.0) Estimated GFR (Cockcroft-Gault) 34.3 BUN/Creatinine Ratio 7 (6-20) Glucose Level 187 mg/dL (70-99) Calcium Level 8.6 mg/dL (8.5-10.1) Total Bilirubin 0.4 mg/dL (0.2-1.0) Aspartate Amino Transf (AST/SGOT) 30 U/L (15-37) Alanine Aminotransferase (ALT/SGPT) 20 U/L (14-59) Alkaline Phosphatase 107 U/L (46-116) Creatine Kinase 156 U/L (26-192) Creatine Kinase MB (Mass) 1.8 ng/mL (0.0-3.6) Creatine Kinase MB Relative Index 1.2 % (0-4) Troponin I Quantitative 0.028 ng/mL (0.000-0.055) Total Protein 6.5 g/dL (6.4-8.2) Albumin 1.7 g/dL (3.4-5.0) Albumin/Globulin Ratio 0.4 (1.0-1.7) Urine Collection Type Unknown Urine Color Yellow Urine Clarity Clear Urine pH 6.5 Urine Specific [place] 1.020 Urine Protein >=300 mg/dL (NEG-TRACE) Urine Glucose (UA) 250 mg/dL (NEG) Urine Ketones (Stick) Negative mg/dL (NEG) Urine Blood Trace (NEG) Urine Nitrite Negative (NEG) Urine Bilirubin Negative (NEG) Urine Urobilinogen Dipstick 0.2 mg/dL (0.2 mg/dL) Urine Leukocyte Esterase Negative (NEG) Urine RBC 1-2 /HPF (0-2) Urine WBC 1-4 /HPF (0-4) Urine Squamous Epithelial Cells None /LPF Urine Bacteria Few /HPF (0-FEW) Urine Hyaline Casts Few /HPF Images Images Left ventricle systolic function is normal. The Ejection Fraction is 60-65%. Calculated aortic valve area is 1.0 cm2 with maximum pressure gradient of 51 mmHg and mean pressure gradient of 25 mmHg. Doppler and color-flow analysis revealed moderate aortic stenosis but visually the valve appears to be severely stenotic. SONIA FRANKLIN MD Jan 14, 2017 14:01
[2017-01-14 14:41] LABS: % SAT IRON 21 % (15-34); IRON,SERUM 50 ug/dL (50-170)
[2017-01-14 15:00] VITALS: BP 131/60
--- NOTE | 2017-01-14 15:29 | RAD ---
Indication acute renal disease superimposed on chronic disease. Grayscale imaging targeted to the kidneys was performed. The right kidney is small and very echogenic. There is cortical loss seen associated with the kidney. It measures overall approximately 8 x 3.3 x 3.1 cm. No hydronephrosis or mass is seen associated with the right kidney. The left kidney measures approximately 16 x 6 x 5.7 cm. The enlarged left kidney is probably at least partially compensatory in nature. No hydronephrosis or mass is seen associated with the left kidney. The urinary bladder appeared grossly normal. IMPRESSION: Atrophic right kidney with associated findings compatible with chronic medical renal disease. Enlarged left kidney is likely at least partially compensatory in nature. No mass or hydronephrosis is seen associated with the left kidney
[2017-01-14] MEDS: APIXABAN 5 MG TABLET. PO SCH (17:48)
[2017-01-14 19:40] VITALS: BP 141/83
[2017-01-14] MEDS: ALBUTEROL SULFATE 2.5 MG/3 ML NEBU. NEB PRN (20:25)
[2017-01-14] MEDS: ATORVASTATIN CALCIUM 40 MG TABLET. PO SCH (21:25)
[2017-01-14] MEDS: HYDROcodone/APAP 5/325MG 1 TAB TABLET PO PRN (21:27)
[2017-01-14 23:20] VITALS: BP 107/61
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
[2017-01-15 03:59] VITALS: BP 149/61
[2017-01-15 06:17] LABS: ALBUMIN 1.6 g/dL (3.4-5.0); CALCIUM 7.8 mg/dL (8.5-10.1); CREATININE 1.7 mg/dL (0.6-1.0); GFR 29.7; POTASSIUM 3.8 mmol/L (3.5-5.1)
[2017-01-15] MEDS: APIXABAN 5 MG TABLET. PO SCH ×2 (06:48→18:00)
[2017-01-15 07:00] VITALS: BP 176/61
[2017-01-15] MEDS: ANTI-COAG MONITOR BY PHARMACY. MC PRN (08:05)
[2017-01-15] MEDS: VITAMIN B COMPLEX TABLET. PO SCH (08:43)
[2017-01-15] MEDS: ASCORBIC ACID 500 MG TABLET PO SCH (08:45)
[2017-01-15] MEDS: amLODIPine BESYLATE 10 MG TABLET PO SCH (08:46)
[2017-01-15] MEDS: CLOPIDOGREL BISULFATE 75 MG TABLET PO SCH (08:46)
[2017-01-15] MEDS: CHOLECALCIFEROL (VITAMIN D3) 1,000 UNIT TABLET PO SCH (08:46)
[2017-01-15] MEDS: LABETALOL HCL 200 MG TABLET PO SCH ×2 (08:46→20:58)
[2017-01-15] MEDS: CYANOCOBALAMIN (VITAMIN B-12) 1,000 MCG TABLET. PO SCH (08:47)
--- NOTE | 2017-01-15 08:47 | PDOC ---
Provider Note Provider Note [id number] CHRISTINA ROSENBAUM MD Jan 15, 2017 08:47
[2017-01-15] MEDS: ISOSORBIDE MONONITRATE ER 30 MG TAB.ER.24H PO SCH (08:48)
[2017-01-15] MEDS: MAGNESIUM OXIDE 400 MG TABLET PO SCH (08:48)
[2017-01-15] MEDS: AMIODARONE HCL 200 MG TABLET. PO SCH (08:49)
[2017-01-15] MEDS: ASPIRIN CHEWABLE 81 MG TABLET. PO SCH (08:49)
[2017-01-15] MEDS: POTASSIUM CHLORIDE 10 MEQ TABLET.ER. PO SCH ×3 (08:49→15:58)
[2017-01-15] MEDS: OMEGA-3 FATTY ACIDS/FISH OIL 1,000 MG CAPSULE. PO SCH (08:50)
[2017-01-15] MEDS ORDERED: ASCORBIC ACID 500 MG TABLET ONE (09:00)
--- NOTE | 2017-01-15 09:32 | HP ---
ADMIT DATE: 01/14/2017 CHIEF COMPLAINT: Nephrotic syndrome. HISTORY OF PRESENT ILLNESS: A 71-year-old white female who has had recently increasing edema and 24-hour urine was noted to have over 13 grams of total protein. Albumin has dropped below 2 and the etiology of this is unknown and she came in because of increasing edema and shortness of breath and was found to have a left pleural effusion. PAST MEDICAL HISTORY: Well documented in the old records, known coronary artery disease and renal artery disease. ALLERGIES: PENICILLIN AND E-MYCIN. MEDICATIONS: No new medications except for Lasix. SOCIAL HISTORY: Nonsmoker, single, disabled, nondrinker. FAMILY HISTORY: Unremarkable. REVIEW OF SYSTEMS: No other complaints. OBJECTIVE: ENT: Unremarkable. NECK: No masses, nodes, or bruits. LUNGS: Decreased breath sounds left base. CARDIOVASCULAR: Regular rate. No irregular beat or murmur. ABDOMEN: Has some abdominal wall edema. EXTREMITIES: Left BKA amputation. There is edema, right lower leg and left upper arm after recent pacemaker placement. GENITOURINARY AND RECTAL: Deferred. ASSESSMENT: 1. Nephrotic range proteinuria, etiology is undetermined, but this is certainly causing her edema and probably her left pleural effusion. 2. Coronary artery disease without cardiomyopathy. 3. Bilateral renal artery stenosis, status post renal stents in the past. PLAN: As ordered. CHRISTINA ROSENBAUM MD DR: AVNI/concetta JOB#: [id number] / [id number]
[2017-01-15 11:00] VITALS: BP 140/58
--- NOTE | 2017-01-15 11:08 | RAD ---
Portable chest, 01/15/2017: History: Shortness of breath Comparison is made to yesterday study. A left-sided transvenous pacemaker remains in place with 2 leads extending into the right heart. There is been a previous median sternotomy. The heart size is unchanged. The pulmonary vascularity is normal. There is a moderate ongoing left basilar opacity compatible with pleural fluid. Allowing for differences in patient positioning, the amount of pleural fluid is probably unchanged. The right chest remains clear. There is no evidence of pneumothorax. IMPRESSION: Unchanged moderate-sized left pleural effusion.
--- NOTE | 2017-01-15 12:06 | PDOC ---
CARDIO Progress Notes Date and Time Date of Service 01/15/17 Time of Evaluation 1110 Subjective Subjective: No Chest Pain, Other (c/o SOA ) Vitals Vitals Vital Signs Date Time Temp Pulse Resp B/P (MAP) Pulse Ox O2 Delivery O2 Flow Rate FiO2 01/15/17 08:49 68 176/61 01/15/17 07:00 98.6 21 94 Room Air 98.6 01/14/17 23:20 2.0 Weight Weight [ ] Input and Output Intake and Output Intake and Output 01/16/17 07:00 Intake Total 250 ml Balance 250 ml Intake Oral 250 ml Laboratory Labs Laboratory Tests Test 01/15/17 04:25 Hemoglobin 9.6 g/dL (12.0-15.5) Sodium Level 141 mmol/L (136-145) Potassium Level 3.8 mmol/L (3.5-5.1) Chloride Level 105 mmol/L (98-107) Carbon Dioxide Level 29 mmol/L (21-32) Anion Gap 7 (6-14) Blood Urea Nitrogen 13 mg/dL (7-20) Creatinine 1.7 mg/dL (0.6-1.0) Estimated GFR (Cockcroft-Gault) 29.7 Glucose Level 142 mg/dL (70-99) Calcium Level 7.8 mg/dL (8.5-10.1) Phosphorus Level 4.0 mg/dL (2.6-4.7) Magnesium Level 1.5 mg/dL (1.8-2.4) Albumin 1.6 g/dL (3.4-5.0) Physical Exam HEENT: Neck Supple W Full Motion Chest: Symmetric, Other (Left breast edema ) LUNGS: Clear to Auscultation Heart: S1S2, RRR, murmurs (3/6 systolic murmur ) Abdomen: Soft N/T Extremities: Other ( 2+ RLE edema. Left AKA, anasarca) Neurology: alert, oriented, follow commands Assessment Assessment 1. Mild acute on chronic diastolic CHF; LVEF 60-65%. Improved with Lasix. Continue diuresis with monitoring of renal function 2. Dyspnea; secondary to left-sided effusion. Edema more localized to left side. Ultrasound pending. Need for thoracentesis? consider pulm consult 3. 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 Recent PCI/LARA to LCx, stable. Continue secondary prevention measures 4. 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 PAFIB: maintaining SR with intermittent pacing. Continue Amiodarone for rhythm maintenance and Eliquis for stroke prevention 6. FRANTZ with CKD with known ANNA. Cr now 1.7. as per nephrology. 7. PAD: recent RSFA percutaneous revascularization. stable 8. Known ANNA, chronic total occlusion to right and 30% to left in-stent restenosis, opted for medical treatment. Stable 9. HTN: labile. continue to monitor 10. DM2/HLP; statin 11. Valvular disease: mild MR/TR, mod , stable 12. Proteinuria/Hypoalbuminemia; contributing to anasarca. 24-hr urine underway. Per nephrology. BEBETO SILVA APRN Jan 15, 2017 12:06
[2017-01-15] MEDS: FUROSEMIDE 40 MG/4 ML VIAL. IVP SCH ×2 (13:07→15:57)
[2017-01-15] MEDS: MAGNESIUM SULFATE 2GM 50 ML IV PRN (13:09)
[2017-01-15 15:00] VITALS: BP 128/60
[2017-01-15 15:31] LABS: PTH INTACT 45 pg/mL (15-65)
--- NOTE | 2017-01-15 16:05 | RAD ---
APPROVED REPORT Left Upper Extremity Venous Study for DVT. Patient Location: IN-PATIENT Indications Upper Extremity Edema: Left Vein Imaging (Left) IJV (L): Spontaneous SCV (L): Spontaneous Axillary (L): Compressible Brachial (L): Compressible Basilic (L): Compressible Cephalic (L): Compressible Radial (L): Compressible Ulnar (L): Compressible Findings Limited grayscale images of the left internal jugular, subclavian, cephalic, brachial, basilic and ra dial veins do not reveal any evidence of thrombus. The vessels. Be compressible fully and spectral waveforms demonstrate spontaneous flow and color Dopp ler does not reveal any restriction to flow. Critical Notification Critical Value: No <Conclusion> Negative for left upper ext DVT.
--- NOTE | 2017-01-15 18:08 | PDOC ---
SUBJECTIVE ROS Anasarca Edema is much better CVS: no Orthopnea, no CP RESP: no SOB, min PEÑA GI: no Nausea, no Vomiting : no Dysuria, no Urgency OBJECTIVE Vital Signs Vital Signs Date Time Temp Pulse Resp B/P (MAP) Pulse Ox O2 Delivery O2 Flow Rate FiO2 01/15/17 15:00 98.1 70 20 128/60 (82) 97 Room Air 98.1 01/15/17 12:44 2.0 I & 0 Intake and Output 01/16/17 07:00 Intake Total 1250 ml Output Total 950 ml Balance 300 ml Intake Oral 1250 ml Output Urine Total 950 ml # Bowel Movements 1 PHYSICAL EXAM Physical Exam General Appearance: Awake Alert Oriented x 3 In no Distress Eyes: VIsion Unchanged Conjunctiva Normal EN: No EN Drainage Mucous Memb. moist Neck: no JVD min JVP Supple no Thyromegaly CVS: S1 S2 + Murmur No Gallop No Rub ++ Edema Resp: rare LLL Rales no Rhonchi no Acc. 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 Nephrotic synd - May need Kidney Bx; requantitate protein and check PEPs - suspect due to HTnsive/ DM /NS; Suspect some amount of hyperfiltration injury too. possible Smoking related GN but cannot Bx potentially single functioning kidney Left Nephromegaly - suspect Compensatory Low Mag - IV Mag as ordered Anemia: iron is adequate ; may need Epogen Transfuse as needed. Renovascular HTN: s/p ami Renal artery stents. Current BP meds reviewed. See orders for changes. Localised edema on left arm and breast - suspect due to PM placement - ? need for Venogram - defer to Cardiology Low K - repalced and better now Sev HypoAlbuminemia - due to #2 Left Pl eff- ct Diuresis; thoracentesis prn Anasarca - Diuresis as needed DM with NEhpropahty - cannot be ruled out. Discussed Plan of Care and prognosis etc. at length with family COMMENT/RELEVANT DATA Meds Current Medications Medications (Trade) Dose Ordered Sig/Shilo Start Time Stop Time Status Last Admin Dose Admin Acetaminophen/ Hydrocodone Bitart (Lortab 5/325) 1 tab PRN TID PRN 01/14/17 14:00 01/14/17 21:27 1 TAB Albuterol Sulfate (Ventolin Neb Soln) 2.5 mg PRN TID PRN 01/14/17 14:15 01/14/17 20:25 2.5 MG Alprazolam (Xanax) 0.5 mg TID PRN PRN 01/14/17 12:45 Amiodarone HCl (Cordarone) 200 mg DAILY 01/14/17 13:00 01/15/17 08:49 200 MG Amlodipine Besylate (Norvasc) 10 mg DAILY 01/14/17 13:00 01/15/17 08:46 10 MG Apixaban (Eliquis) 5 mg [id number] 01/14/17 18:00 01/15/17 06:48 5 MG Ascorbic Acid (Vitamin C) 1,000 mg DAILY 01/14/17 13:00 01/15/17 08:45 1,000 MG Aspirin (Children'S Aspirin) 81 mg DAILY 01/14/17 13:00 01/15/17 08:49 81 MG Atorvastatin Calcium (Lipitor) 40 mg HS 01/14/17 21:00 01/14/17 21:25 40 MG Clopidogrel Bisulfate (Plavix) 75 mg DAILY 01/14/17 13:00 01/15/17 08:46 75 MG Cyanocobalamin (Vitamin B-12) 5,000 mcg DAILY 01/14/17 13:00 01/15/17 08:47 5,000 MCG Fish Oil (Fish Oil) 2,000 mg DAILY 01/14/17 13:00 01/15/17 08:50 2,000 MG Furosemide (Lasix) 40 mg [id number] 01/15/17 09:30 01/15/17 15:57 40 MG Info (Anti-Coagulation Monitoring By Pharmacy) 1 each PRN DAILY PRN 01/14/17 13:30 01/15/17 08:05 1 EACH Isosorbide Mononitrate (Imdur) 120 mg DAILY 01/14/17 13:00 01/15/17 08:48 120 MG Labetalol HCl (Trandate) 200 mg BID 01/14/17 13:00 01/15/17 08:46 200 MG Magnesium Oxide (Magnesium Oxide) 400 mg DAILY 01/14/17 13:00 01/15/17 08:48 400 MG Magnesium Sulfate/ Dextrose 50 ml @ 25 mls/hr PRN DAILY PRN 01/14/17 14:00 01/15/17 13:09 25 MLS/HR Potassium Chloride (Klor-Con) 40 meq 1X ONCE 01/14/17 13:15 01/14/17 13:16 DC 01/14/17 13:27 40 MEQ Vitamin B Complex (Flaquito B) 1 tab DAILY 01/14/17 13:00 01/15/17 08:43 1 TAB Vitamin D (Vitamin D3) 2,000 unit DAILY 01/14/17 13:00 01/15/17 08:46 2,000 UNIT Lab Laboratory Tests Test 01/15/17 04:25 Hemoglobin 9.6 g/dL (12.0-15.5) Sodium Level 141 mmol/L (136-145) Potassium Level 3.8 mmol/L (3.5-5.1) Chloride Level 105 mmol/L (98-107) Carbon Dioxide Level 29 mmol/L (21-32) Anion Gap 7 (6-14) Blood Urea Nitrogen 13 mg/dL (7-20) Creatinine 1.7 mg/dL (0.6-1.0) Estimated GFR (Cockcroft-Gault) 29.7 Glucose Level 142 mg/dL (70-99) Calcium Level 7.8 mg/dL (8.5-10.1) Phosphorus Level 4.0 mg/dL (2.6-4.7) Magnesium Level 1.5 mg/dL (1.8-2.4) Albumin 1.6 g/dL (3.4-5.0) Other IMPRESSION: Atrophic right kidney with associated findings compatible with chronic medical renal disease. Enlarged left kidney is likely at least partially compensatory in nature. No mass or hydronephrosis is seen associated with the left kidney SONIA FRANKLIN MD Jan 15, 2017 18:08
[2017-01-15 19:00] VITALS: BP 164/65
[2017-01-15] MEDS: ATORVASTATIN CALCIUM 40 MG TABLET. PO SCH (20:57)
[2017-01-15] MEDS: HYDROcodone/APAP 5/325MG 1 TAB TABLET PO PRN (20:59)
[2017-01-15 23:00] VITALS: BP 124/64
[2017-01-16 03:06] VITALS: BP 109/65
[2017-01-16 04:22] LABS: KAPPA LAMBDA RATIO 0.98 (0.26-1.65)
[2017-01-16 05:19] LABS: TOTAL SERUM CREATININE 1.4 mg/dL (0.57-1.00)
[2017-01-16 05:42] LABS: ALBUMIN 1.5 g/dL (3.4-5.0); CALCIUM 7.9 mg/dL (8.5-10.1); CREATININE 1.8 mg/dL (0.6-1.0); GFR 27.8; PHOSPHORUS 4.1 mg/dL (2.6-4.7); POTASSIUM 3.6 mmol/L (3.5-5.1)
[2017-01-16] MEDS: APIXABAN 5 MG TABLET. PO SCH ×2 (06:40→17:50)
[2017-01-16 07:00] VITALS: BP 161/56
[2017-01-16] MEDS: ANTI-COAG MONITOR BY PHARMACY. MC PRN (08:00)
[2017-01-16] MEDS: ASPIRIN CHEWABLE 81 MG TABLET. PO SCH (08:44)
[2017-01-16] MEDS: VITAMIN B COMPLEX TABLET. PO SCH (08:44)
[2017-01-16] MEDS: CHOLECALCIFEROL (VITAMIN D3) 1,000 UNIT TABLET PO SCH (08:46)
[2017-01-16] MEDS: CYANOCOBALAMIN (VITAMIN B-12) 1,000 MCG TABLET. PO SCH (08:46)
[2017-01-16] MEDS: POTASSIUM CHLORIDE 10 MEQ TABLET.ER. PO SCH ×3 (08:47→17:27)
[2017-01-16] MEDS: MAGNESIUM OXIDE 400 MG TABLET PO SCH (08:47)
[2017-01-16] MEDS: FUROSEMIDE 40 MG/4 ML VIAL. IVP SCH (08:48)
[2017-01-16] MEDS: LABETALOL HCL 200 MG TABLET PO SCH ×2 (08:48→21:53)
[2017-01-16] MEDS: ISOSORBIDE MONONITRATE ER 30 MG TAB.ER.24H PO SCH (08:55)
[2017-01-16] MEDS: AMIODARONE HCL 200 MG TABLET. PO SCH (08:56)
[2017-01-16] MEDS: OMEGA-3 FATTY ACIDS/FISH OIL 1,000 MG CAPSULE. PO SCH (08:57)
[2017-01-16] MEDS: CLOPIDOGREL BISULFATE 75 MG TABLET PO SCH (08:57)
[2017-01-16] MEDS: ASCORBIC ACID 500 MG TABLET PO SCH (08:57)
[2017-01-16] MEDS: amLODIPine BESYLATE 10 MG TABLET PO SCH (08:57)
[2017-01-16] MEDS ORDERED: ASCORBIC ACID 500 MG TABLET ONE (09:00)
--- NOTE | 2017-01-16 09:07 | PDOC ---
Provider Note Provider Note feels more dyspneic at times, creat up a little after lasix, MM eval in progress - may need consid of thoracentesis, will repeat cxr CHRISTINA ROSENBAUM MD Jan 16, 2017 09:07
[2017-01-16 09:22] LABS: ALPHA 1 0.2 g/dL (0.0-0.4); ALPHA 2 1.2 g/dL (0.4-1.0); BETA 0.8 g/dL (0.7-1.3); GAMMA 0.6 g/dL (0.4-1.8); M-SPIKE Not Observed g/dL (Not Observed); PROTEIN TOTAL 4.6 g/dL (6.0-8.5)
[2017-01-16] MEDS: ALBUTEROL SULFATE 2.5 MG/3 ML NEBU. NEB PRN (09:34)
[2017-01-16 11:00] VITALS: BP 146/60
--- NOTE | 2017-01-16 11:54 | RAD ---
Portable chest, 01/16/2017: History: Shortness of breath, left effusion Comparison is made to yesterday study. A left-sided transvenous pacemaker is unchanged. There has been a previous median sternotomy. The heart is at the upper limits of normal in size and unchanged. The pulmonary vascularity is normal. There is a moderate sized left pleural effusion with underlying atelectasis. There has been no improvement since yesterday's study. There is slight obscuration of the right lateral costophrenic angle raising the possibility tiny amount of right-sided pleural fluid. IMPRESSION: 1. Ongoing moderate sized left pleural effusion with underlying left basilar atelectasis/infiltrate. 2. Possible tiny right pleural effusion
--- NOTE | 2017-01-16 13:15 | PDOC ---
SUBJECTIVE ROS CKD III/ Anasarca developed worsening SOB this am CVS: ? min Orthopnea, no CP RESP: + SOB, + PEÑA GI: no Nausea, no Vomiting : no Dysuria, no Urgency OBJECTIVE Vital Signs Vital Signs Date Time Temp Pulse Resp B/P (MAP) Pulse Ox O2 Delivery O2 Flow Rate FiO2 01/16/17 11:00 98.0 65 19 146/60 (88) 95 Room Air 98.0 01/16/17 09:34 2.0 I & 0 Intake and Output 01/17/17 07:00 Intake Total 500 ml Balance 500 ml Intake Oral 500 ml UO not well documented PHYSICAL EXAM Physical Exam General Appearance: Awake Alert Oriented x 3 In no Distress Eyes: VIsion Unchanged Conjunctiva Normal EN: No EN Drainage Mucous Memb. moist Neck: no JVD min JVP Supple no Thyromegaly CVS: S1 S2 + Murmur No Gallop No Rub + Edema Resp: + LLL Rales no Rhonchi no Acc. 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 Will re-evaluate for Dialysis in am - not sure if CrCl is accurate Small ? Ischemia Rt Kidney - H/o ANNA and stenting in the past. Presumably non- functional Nephrotic synd - Unable to do Kidney Bx given Probable single functioning kidney;quantitate protein and checking PEPs (unlikely to be +ve) - suspect due to HTnsive/ DM /NS; Suspect some amount of hyperfiltration injury too. possible Smoking related GN Left Nephromegaly - suspect Compensatory for ? Ischemic Rt Kdiney Low Mag - IV Mag as ordered and better now Anemia: iron is adequate ; start Epogen Transfuse as needed. Renovascular HTN: s/p ami Renal artery stents. Current BP meds reviewed. See orders for changes. Localised edema on left arm and breast - suspect due to PM placement - ? need for Venogram - defer to Cardiology Low K - repalced and better now Sev HypoAlbuminemia - due to #3 Left Pl eff- ct Diuresis; thoracentesis prn - defer to Dr Pritchard re timing of same. ? For Symptomatic relief Anasarca - Diuresis as ordered - Lasix gtt since SOB is worse DM with NEhpropahty - cannot be ruled out. Discussed Plan of Care and prognosis etc. at length with family COMMENT/RELEVANT DATA Meds Current Medications Medications (Trade) Dose Ordered Sig/Shilo Start Time Stop Time Status Last Admin Dose Admin Acetaminophen/ Hydrocodone Bitart (Lortab 5/325) 1 tab PRN TID PRN 01/14/17 14:00 01/15/17 20:59 1 TAB Albuterol Sulfate (Ventolin Neb Soln) 2.5 mg PRN TID PRN 01/14/17 14:15 01/16/17 09:34 2.5 MG Alprazolam (Xanax) 0.5 mg TID PRN PRN 01/14/17 12:45 Amiodarone HCl (Cordarone) 200 mg DAILY 01/14/17 13:00 01/16/17 08:56 200 MG Amlodipine Besylate (Norvasc) 10 mg DAILY 01/14/17 13:00 01/16/17 08:57 10 MG Apixaban (Eliquis) 5 mg [id number] 01/14/17 18:00 01/16/17 06:40 5 MG Ascorbic Acid (Vitamin C) 1,000 mg DAILY 01/14/17 13:00 01/16/17 08:57 1,000 MG Aspirin (Children'S Aspirin) 81 mg DAILY 01/14/17 13:00 01/16/17 08:44 81 MG Atorvastatin Calcium (Lipitor) 40 mg HS 01/14/17 21:00 01/15/17 20:57 40 MG Clopidogrel Bisulfate (Plavix) 75 mg DAILY 01/14/17 13:00 01/16/17 08:57 75 MG Cyanocobalamin (Vitamin B-12) 5,000 mcg DAILY 01/14/17 13:00 01/16/17 08:46 5,000 MCG Fish Oil (Fish Oil) 2,000 mg DAILY 01/14/17 13:00 01/16/17 08:57 2,000 MG Furosemide (Lasix) 40 mg [id number] 01/15/17 09:30 01/16/17 08:48 40 MG Info (Anti-Coagulation Monitoring By Pharmacy) 1 each PRN DAILY PRN 01/14/17 13:30 01/16/17 08:00 1 EACH Isosorbide Mononitrate (Imdur) 120 mg DAILY 01/14/17 13:00 01/16/17 08:55 120 MG Labetalol HCl (Trandate) 200 mg BID 01/14/17 13:00 01/16/17 08:48 200 MG Magnesium Oxide (Magnesium Oxide) 400 mg DAILY 01/14/17 13:00 01/16/17 08:47 400 MG Magnesium Sulfate/ Dextrose 50 ml @ 25 mls/hr PRN DAILY PRN 01/14/17 14:00 01/15/17 13:09 25 MLS/HR Potassium Chloride (Klor-Con) 40 meq 1X ONCE 01/14/17 13:15 01/14/17 13:16 DC 01/14/17 13:27 40 MEQ Vitamin B Complex (Flaquito B) 1 tab DAILY 01/14/17 13:00 01/16/17 08:44 1 TAB Vitamin D (Vitamin D3) 2,000 unit DAILY 01/14/17 13:00 01/16/17 08:46 2,000 UNIT Lab Laboratory Tests Test 01/15/17 15:50 01/16/17 04:54 Urine Creatinine 24 Hour 962 mg/24 hr (800-1800) Creatinine Clearance 24 Hour 48 mL/min (88-128) Creatinine 1.40 mg/dL (0.57-1.00) 1.8 mg/dL (0.6-1.0) Estimated GFR (Non- 38 (>59) EGFR 44 (>59) Sodium Level 141 mmol/L (136-145) Potassium Level 3.6 mmol/L (3.5-5.1) Chloride Level 106 mmol/L (98-107) Carbon Dioxide Level 28 mmol/L (21-32) Anion Gap 7 (6-14) Blood Urea Nitrogen 15 mg/dL (7-20) Estimated GFR (Cockcroft-Gault) 27.8 Glucose Level 150 mg/dL (70-99) Calcium Level 7.9 mg/dL (8.5-10.1) Phosphorus Level 4.1 mg/dL (2.6-4.7) Magnesium Level 2.0 mg/dL (1.8-2.4) Albumin 1.5 g/dL (3.4-5.0) SONIA FRANKLIN MD Jan 16, 2017 13:15
--- NOTE | 2017-01-16 14:16 | PDOC ---
BEBETO SILVA SOCK LINING STITCHER 01/16/17 1416: CARDIO Progress Notes Date and Time Date of Service 01/16/17 Time of Evaluation 1045 Subjective Subjective: No Chest Pain, No Palpitations, Other (ongoing SOA ) Vitals Vitals Vital Signs Date Time Temp Pulse Resp B/P (MAP) Pulse Ox O2 Delivery O2 Flow Rate FiO2 01/16/17 11:00 98.0 65 19 146/60 (88) 95 Room Air 98.0 01/16/17 09:34 2.0 Weight Weight [ ] Input and Output Intake and Output Intake and Output 01/17/17 07:00 Intake Total 500 ml Balance 500 ml Intake Oral 500 ml Laboratory Labs Laboratory Tests Test 01/15/17 15:50 01/16/17 04:54 Urine Creatinine 24 Hour 962 mg/24 hr (800-1800) Creatinine Clearance 24 Hour 48 mL/min (88-128) Creatinine 1.40 mg/dL (0.57-1.00) 1.8 mg/dL (0.6-1.0) Estimated GFR (Non- 38 (>59) EGFR 44 (>59) Sodium Level 141 mmol/L (136-145) Potassium Level 3.6 mmol/L (3.5-5.1) Chloride Level 106 mmol/L (98-107) Carbon Dioxide Level 28 mmol/L (21-32) Anion Gap 7 (6-14) Blood Urea Nitrogen 15 mg/dL (7-20) Estimated GFR (Cockcroft-Gault) 27.8 Glucose Level 150 mg/dL (70-99) Calcium Level 7.9 mg/dL (8.5-10.1) Phosphorus Level 4.1 mg/dL (2.6-4.7) Magnesium Level 2.0 mg/dL (1.8-2.4) Albumin 1.5 g/dL (3.4-5.0) Physical Exam HEENT: Neck Supple W Full Motion Chest: Symmetric, Other (Left breast edema ) LUNGS: Clear to Auscultation, Other (diminished left side. Absent left base) Heart: S1S2, RRR, murmurs (3/6 systolic murmur ) Abdomen: Soft N/T Extremities: Other ( 2+ RLE edema. Left AKA, anasarca) Neurology: alert, oriented, follow commands Assessment Assessment 1. Mild acute on chronic diastolic CHF; LVEF 60-65%. Cr worsening. Will defer diuresis to nephrology. 2. Dyspnea; secondary to moderate left-sided effusion. Edema more localized to left side. US negative for DVT. Need for thoracentesis? 3. CAD: CABG in the past, known BOTTOM MAN RCA. Recent PCI/LARA to LCx, stable. Continue secondary prevention measures 4. 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 PAFIB: maintaining SR with intermittent pacing. Continue Amiodarone for rhythm maintenance and Eliquis for stroke prevention 6. FRANTZ with CKD with known ANNA. Cr slowly increasing. as per nephrology. 7. PAD: recent RSFA percutaneous revascularization. stable 8. Known ANNA, chronic total occlusion to right and 30% to left in-stent restenosis, opted for medical treatment. Stable 9. HTN: labile. continue to monitor 10. DM2/HLP; statin 11. Valvular disease: mild MR/TR, mod , stable 12. Proteinuria/Hypoalbuminemia; contributing to anasarca. Diuresis per renal WILLI LINDSEY MD 01/16/17 1613: CARDIO Progress Notes Assessment Assessment Patient seen and examined. Agree with GAMEROOM TECHNICIAN's assessment and plan. She is presently on Lasix drip per nephrology team's recommendations. CAD status stable. Continue current medical regimen. BEBETO SILVA APRN Jan 16, 2017 14:16 WILLI LINDSEY MD Jan 16, 2017 16:13
[2017-01-16] MEDS: FUROSEMIDE INJ 100 MG in IV NORMAL SALINE 100ML 100 ML IV PRN (14:49)
[2017-01-16 15:00] VITALS: BP 136/78
[2017-01-16 16:18] LABS: IMMUNOGLOBULIN A 189 mg/dL (87-352); IMMUNOGLOBULIN G 624 mg/dL (700-1600); IMMUNOGLOBULIN M 86 mg/dL (26-217)
[2017-01-16] MEDS: HYDROcodone/APAP 5/325MG 1 TAB TABLET PO PRN (18:31)
[2017-01-16 19:24] VITALS: BP 158/63
[2017-01-16] MEDS: ATORVASTATIN CALCIUM 40 MG TABLET. PO SCH (21:53)
[2017-01-16 23:05] VITALS: BP 147/58
[2017-01-17 02:47] VITALS: BP 136/73
[2017-01-17 05:32] LABS: ALBUMIN 1.6 g/dL (3.4-5.0); CALCIUM 7.9 mg/dL (8.5-10.1); CREATININE 1.7 mg/dL (0.6-1.0); GFR 29.7; PHOSPHORUS 3.3 mg/dL (2.6-4.7); POTASSIUM 3.2 mmol/L (3.5-5.1)
[2017-01-17] MEDS: APIXABAN 5 MG TABLET. PO SCH ×2 (06:46→17:52)
[2017-01-17] MEDS: FUROSEMIDE INJ 100 MG in IV NORMAL SALINE 100ML 100 ML IV PRN (06:48)
[2017-01-17 07:00] VITALS: BP 153/63
[2017-01-17] MEDS: ANTI-COAG MONITOR BY PHARMACY. MC PRN (07:46)
[2017-01-17] MEDS ORDERED: ASCORBIC ACID 500 MG TABLET ONE (09:00)
[2017-01-17] MEDS: VITAMIN B COMPLEX TABLET. PO SCH (09:04)
[2017-01-17] MEDS: MAGNESIUM OXIDE 400 MG TABLET PO SCH (09:05)
[2017-01-17] MEDS: CYANOCOBALAMIN (VITAMIN B-12) 1,000 MCG TABLET. PO SCH (09:05)
[2017-01-17] MEDS: ASPIRIN CHEWABLE 81 MG TABLET. PO SCH (09:05)
[2017-01-17] MEDS: CHOLECALCIFEROL (VITAMIN D3) 1,000 UNIT TABLET PO SCH (09:05)
[2017-01-17] MEDS: OMEGA-3 FATTY ACIDS/FISH OIL 1,000 MG CAPSULE. PO SCH (09:05)
[2017-01-17] MEDS: POTASSIUM CHLORIDE 10 MEQ TABLET.ER. PO SCH (09:06)
[2017-01-17] MEDS: CLOPIDOGREL BISULFATE 75 MG TABLET PO SCH (09:06)
[2017-01-17] MEDS: ASCORBIC ACID 500 MG TABLET PO SCH (09:10)
[2017-01-17] MEDS: ISOSORBIDE MONONITRATE ER 30 MG TAB.ER.24H PO SCH (09:11)
[2017-01-17] MEDS: LABETALOL HCL 200 MG TABLET PO SCH ×2 (09:11→21:43)
[2017-01-17] MEDS: AMIODARONE HCL 200 MG TABLET. PO SCH (09:12)
[2017-01-17] MEDS: amLODIPine BESYLATE 10 MG TABLET PO SCH (09:12)
--- NOTE | 2017-01-17 10:06 | PDOC ---
Provider Note Provider Note vss, good output- feels edema less, no dyspnea re effusion- K+ lower ,will add more po- gfr stable- dont want to do thoracentesis as would have 2 stop 3 drugs re bleed risk- cont same for now- no acei/arb re single functioning kidney CHRISTINA ROSENBAUM MD Jan 17, 2017 10:06
[2017-01-17 11:00] VITALS: BP 129/42
--- NOTE | 2017-01-17 11:31 | PDOC ---
SUBJECTIVE ROS CKD III she is feeling much better today, breathing is easier CVS: no Orthopnea, no CP RESP: min SOB, min PEÑA GI: no Nausea, no Vomiting : no Dysuria, no Urgency OBJECTIVE Vital Signs Vital Signs Date Time Temp Pulse Resp B/P (MAP) Pulse Ox O2 Delivery O2 Flow Rate FiO2 01/17/17 09:12 71 153/63 01/17/17 08:00 Room Air 01/17/17 07:00 98.5 12 94 98.5 01/16/17 18:31 2.0 PHYSICAL EXAM Physical Exam General Appearance: Awake Alert Oriented x 3 In no Distress Eyes: VIsion Unchanged Conjunctiva Normal EN: No EN Drainage Mucous Memb. moist Neck: no JVD min JVP Supple no Thyromegaly CVS: S1 S2 + Murmur No Gallop No Rub + Edema Resp: + LLL Rales no Rhonchi no Acc. Muscle use GI: BS +ve NO Bruit Non Tender Non Distended : no CVA tenderness; no Suprapubic Tenderness Assessment & Plan CKD III - suspect DM/ HTNsive /NS and possible Smoking related GN ; Current FLuid and E-lyte status does not necessitate emergent need for Dialysis. 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 Presumably non- functional Nephrotic synd - Unable to do Kidney Bx given Probable single functioning kidney;quantitate protein. PEPs now -ve for Paraprotein - suspect due to HTnsive/ DM /NS; Suspect some amount of hyperfiltration injury too. possible Smoking related GN Lowish Mag - IV Mag as ordered and better now Low K - replacement as ordered Anemia: iron is adequate ; started Epogen Transfuse as needed. Renovascular HTN: s/p ami Renal artery stents. Current BP meds reviewed. See orders for changes. Localised edema on left arm and breast - defer to Cardiology Sev HypoAlbuminemia - due to #3 - can use IV alb Left Pl eff- ct Diuresis; thoracentesis prn Anasarca - Diuresis as ordered ; -is much better after lasix gtt. - add IV Alb DM with NEhpropahty - cannot be ruled out. Discussed Plan of Care and prognosis etc. at length with family COMMENT/RELEVANT DATA Meds Current Medications Medications (Trade) Dose Ordered Sig/Shilo Start Time Stop Time Status Last Admin Dose Admin Acetaminophen/ Hydrocodone Bitart (Lortab 5/325) 1 tab PRN TID PRN 01/14/17 14:00 01/16/17 18:31 1 TAB Albuterol Sulfate (Ventolin Neb Soln) 2.5 mg PRN TID PRN 01/14/17 14:15 01/16/17 09:34 2.5 MG Alprazolam (Xanax) 0.5 mg TID PRN PRN 01/14/17 12:45 Amiodarone HCl (Cordarone) 200 mg DAILY 01/14/17 13:00 01/17/17 09:12 200 MG Amlodipine Besylate (Norvasc) 10 mg DAILY 01/14/17 13:00 01/17/17 09:12 10 MG Apixaban (Eliquis) 5 mg [id number] 01/14/17 18:00 01/17/17 06:46 5 MG Ascorbic Acid (Vitamin C) 1,000 mg DAILY 01/14/17 13:00 01/17/17 09:10 1,000 MG Aspirin (Children'S Aspirin) 81 mg DAILY 01/14/17 13:00 01/17/17 09:05 81 MG Atorvastatin Calcium (Lipitor) 40 mg HS 01/14/17 21:00 01/16/17 21:53 40 MG Clopidogrel Bisulfate (Plavix) 75 mg DAILY 01/14/17 13:00 01/17/17 09:06 75 MG Cyanocobalamin (Vitamin B-12) 5,000 mcg DAILY 01/14/17 13:00 01/17/17 09:05 5,000 MCG Fish Oil (Fish Oil) 2,000 mg DAILY 01/14/17 13:00 01/17/17 09:05 2,000 MG Furosemide (Lasix) 40 mg [id number] 01/15/17 09:30 01/16/17 13:17 DC 01/16/17 08:48 40 MG Furosemide 100 mg/ Sodium Chloride 100 ml @ 0 mls/hr CONT PRN 01/16/17 13:30 01/17/17 06:48 5 MLS/HR Info (Anti-Coagulation Monitoring By Pharmacy) 1 each PRN DAILY PRN 01/14/17 13:30 01/17/17 07:46 1 EACH Isosorbide Mononitrate (Imdur) 120 mg DAILY 01/14/17 13:00 01/17/17 09:11 120 MG Labetalol HCl (Trandate) 200 mg BID 01/14/17 13:00 01/17/17 09:11 200 MG Magnesium Oxide (Magnesium Oxide) 400 mg DAILY 01/14/17 13:00 01/17/17 09:05 400 MG Magnesium Sulfate/ Dextrose 50 ml @ 25 mls/hr PRN DAILY PRN 01/14/17 14:00 01/15/17 13:09 25 MLS/HR Potassium Chloride (Klor-Con) 20 meq TIDWMEALS 01/17/17 12:00 Vitamin B Complex (Flaquito B) 1 tab DAILY 01/14/17 13:00 01/17/17 09:04 1 TAB Vitamin D (Vitamin D3) 2,000 unit DAILY 01/14/17 13:00 01/17/17 09:05 2,000 UNIT Lab Laboratory Tests Test 01/17/17 04:00 Sodium Level 139 mmol/L (136-145) Potassium Level 3.2 mmol/L (3.5-5.1) Chloride Level 102 mmol/L (98-107) Carbon Dioxide Level 29 mmol/L (21-32) Anion Gap 8 (6-14) Blood Urea Nitrogen 16 mg/dL (7-20) Creatinine 1.7 mg/dL (0.6-1.0) Estimated GFR (Cockcroft-Gault) 29.7 Glucose Level 155 mg/dL (70-99) Calcium Level 7.9 mg/dL (8.5-10.1) Phosphorus Level 3.3 mg/dL (2.6-4.7) Magnesium Level 1.7 mg/dL (1.8-2.4) Albumin 1.6 g/dL (3.4-5.0) SONIA FRANKLIN MD Jan 17, 2017 11:31
[2017-01-17] MEDS: POTASSIUM CHLORIDE 20 MEQ TABLET.ER. PO SCH ×2 (12:15→17:52)
[2017-01-17] MEDS: MAGNESIUM SULFATE 2GM 50 ML IV PRN (12:16)
[2017-01-17] MEDS ORDERED: POTASSIUM CHLORIDE 20 MEQ TABLET.ER. PO ONE (13:45)
[2017-01-17 15:00] VITALS: BP 144/57
[2017-01-17 19:21] VITALS: BP 159/62
[2017-01-17] MEDS: HYDROcodone/APAP 5/325MG 1 TAB TABLET PO PRN (21:40)
[2017-01-17] MEDS: ATORVASTATIN CALCIUM 40 MG TABLET. PO SCH (21:43)
[2017-01-17] MEDS: ALBUMIN HUMAN 25% 100 ML IV SCH ×2 (21:50→21:56)
[2017-01-17 22:26] VITALS: BP 138/61
[2017-01-18 01:15] LABS: HEP A IGM ABDY Negative (Negative); HEP B SURFACE ABDY Non Reactive (.)
[2017-01-18 02:51] VITALS: BP 169/76
[2017-01-18 05:40] LABS: ALBUMIN 2.1 g/dL (3.4-5.0); CALCIUM 8.1 mg/dL (8.5-10.1); CREATININE 1.5 mg/dL (0.6-1.0); GFR 34.3; PHOSPHORUS 3.7 mg/dL (2.6-4.7); POTASSIUM 4.2 mmol/L (3.5-5.1)
[2017-01-18] MEDS: HYDROcodone/APAP 5/325MG 1 TAB TABLET PO PRN ×2 (06:03→23:17)
[2017-01-18] MEDS: APIXABAN 5 MG TABLET. PO SCH ×2 (06:36→17:25)
[2017-01-18 07:00] VITALS: BP 159/65
[2017-01-18] MEDS: ANTI-COAG MONITOR BY PHARMACY. MC PRN (07:54)
[2017-01-18] MEDS: CYANOCOBALAMIN (VITAMIN B-12) 1,000 MCG TABLET. PO SCH (08:13)
[2017-01-18] MEDS: ISOSORBIDE MONONITRATE ER 30 MG TAB.ER.24H PO SCH (08:14)
[2017-01-18] MEDS: CHOLECALCIFEROL (VITAMIN D3) 1,000 UNIT TABLET PO SCH (08:15)
[2017-01-18] MEDS: amLODIPine BESYLATE 10 MG TABLET PO SCH (08:15)
[2017-01-18] MEDS: MAGNESIUM OXIDE 400 MG TABLET PO SCH (08:16)
[2017-01-18] MEDS: ASCORBIC ACID 500 MG TABLET PO SCH (08:16)
[2017-01-18] MEDS: CLOPIDOGREL BISULFATE 75 MG TABLET PO SCH (08:17)
[2017-01-18] MEDS: ASPIRIN CHEWABLE 81 MG TABLET. PO SCH (08:17)
[2017-01-18] MEDS: OMEGA-3 FATTY ACIDS/FISH OIL 1,000 MG CAPSULE. PO SCH (08:18)
[2017-01-18] MEDS: ALBUMIN HUMAN 25% 100 ML IV SCH ×3 (08:19→20:29)
[2017-01-18] MEDS: POTASSIUM CHLORIDE 20 MEQ TABLET.ER. PO SCH ×3 (08:27→17:25)
--- NOTE | 2017-01-18 08:55 | PDOC ---
Provider Note Provider Note feels beter, no dyspnea- creat down 1.5, mg ok- cont same CHRISTINA ROSENBAUM MD Jan 18, 2017 08:55
[2017-01-18] MEDS: VITAMIN B COMPLEX TABLET. PO SCH (08:58)
[2017-01-18] MEDS: AMIODARONE HCL 200 MG TABLET. PO SCH (08:59)
[2017-01-18] MEDS: LABETALOL HCL 200 MG TABLET PO SCH ×2 (08:59→20:29)
[2017-01-18] MEDS ORDERED: ASCORBIC ACID 500 MG TABLET ONE (09:00)
--- NOTE | 2017-01-18 09:20 | PDOC ---
SUBJECTIVE ROS CKD III doing and feeling a little better today; still feels edematous CVS: no Orthopnea, no CP RESP: no SOB, min PEÑA (improved to BSC) GI: no Nausea, no Vomiting : no Dysuria, no Urgency OBJECTIVE Vital Signs Vital Signs Date Time Temp Pulse Resp B/P (MAP) Pulse Ox O2 Delivery O2 Flow Rate FiO2 01/18/17 08:59 66 159/65 01/18/17 07:15 18 90 Room Air 01/18/17 07:00 97.5 97.5 01/18/17 06:03 2.0 PHYSICAL EXAM Physical Exam General Appearance: Awake Alert Oriented x 3 In no Distress Eyes: VIsion Unchanged Conjunctiva Normal EN: No EN Drainage Mucous Memb. moist Neck: no JVD min JVP Supple no Thyromegaly CVS: S1 S2 + Murmur No Gallop No Rub + Edema Resp: + LLL Rales no Rhonchi no Acc. Muscle use GI: BS +ve NO Bruit Non Tender Non Distended : no CVA tenderness; no Suprapubic Tenderness Assessment & Plan CKD III - suspect DM/ HTNsive /NS and possible Smoking related GN ; Current FLuid and E-lyte status does not necessitate emergent need for Dialysis. 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 Presumably non- functional Nephrotic synd - Unable to do Kidney Bx given Probable single functioning kidney;quantitate protein. PEPs now -ve for Paraprotein - suspect due to HTnsive/ DM /NS; Suspect some amount of hyperfiltration injury too. 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 Renovascular HTN: s/p ami Renal artery stents. Current BP meds reviewed. See orders for changes. Localised edema on left arm and breast - defer to Cardiology Sev HypoAlbuminemia - due to #3 - IV alb to help mobilize edema too Left Pl eff- not much better despite Diuresis; ? thoracentesis prn - defer to Dr Macho Gonzalez - Diuresis as ordered ; -is much better after lasix gtt and adding IV Alb; Ct For another 24hrs and reval DM with NEhpropahty - cannot be ruled out. Discussed Plan of Care and prognosis etc. at length with family COMMENT/RELEVANT DATA Meds Current Medications Medications (Trade) Dose Ordered Sig/Shilo Start Time Stop Time Status Last Admin Dose Admin Acetaminophen/ Hydrocodone Bitart (Lortab 5/325) 1 tab PRN TID PRN 01/14/17 14:00 01/18/17 06:03 1 TAB Albumin Human 100 ml @ 100 mls/hr TID 01/17/17 14:00 01/19/17 09:59 01/18/17 08:19 100 MLS/HR Albuterol Sulfate (Ventolin Neb Soln) 2.5 mg PRN TID PRN 01/14/17 14:15 01/16/17 09:34 2.5 MG Alprazolam (Xanax) 0.5 mg TID PRN PRN 01/14/17 12:45 Amiodarone HCl (Cordarone) 200 mg DAILY 01/14/17 13:00 01/18/17 08:59 200 MG Amlodipine Besylate (Norvasc) 10 mg DAILY 01/14/17 13:00 01/18/17 08:15 10 MG Apixaban (Eliquis) 5 mg [id number] 01/14/17 18:00 01/18/17 06:36 5 MG Ascorbic Acid (Vitamin C) 1,000 mg DAILY 01/14/17 13:00 01/18/17 08:16 1,000 MG Aspirin (Children'S Aspirin) 81 mg DAILY 01/14/17 13:00 01/18/17 08:17 81 MG Atorvastatin Calcium (Lipitor) 40 mg HS 01/14/17 21:00 01/17/17 21:43 40 MG Clopidogrel Bisulfate (Plavix) 75 mg DAILY 01/14/17 13:00 01/18/17 08:17 75 MG Cyanocobalamin (Vitamin B-12) 5,000 mcg DAILY 01/14/17 13:00 01/18/17 08:13 5,000 MCG Fish Oil (Fish Oil) 2,000 mg DAILY 01/14/17 13:00 01/18/17 08:18 2,000 MG Furosemide (Lasix) 40 mg [id number] 01/15/17 09:30 01/16/17 13:17 DC 01/16/17 08:48 40 MG Furosemide 100 mg/ Sodium Chloride 100 ml @ 0 mls/hr CONT PRN 01/16/17 13:30 01/17/17 06:48 5 MLS/HR Info (Anti-Coagulation Monitoring By Pharmacy) 1 each PRN DAILY PRN 01/14/17 13:30 01/18/17 07:54 1 EACH Isosorbide Mononitrate (Imdur) 120 mg DAILY 01/14/17 13:00 01/18/17 08:14 120 MG Labetalol HCl (Trandate) 200 mg BID 01/14/17 13:00 01/18/17 08:59 200 MG Magnesium Oxide (Magnesium Oxide) 400 mg DAILY 01/14/17 13:00 01/18/17 08:16 400 MG Magnesium Sulfate/ Dextrose 50 ml @ 25 mls/hr PRN DAILY PRN 01/14/17 14:00 01/17/17 12:16 25 MLS/HR Potassium Chloride (Klor-Con) 40 meq 1X ONCE 01/17/17 13:45 01/17/17 13:46 DC 01/17/17 21:43 40 MEQ Vitamin B Complex (Flaquito B) 1 tab DAILY 01/14/17 13:00 01/18/17 08:58 1 TAB Vitamin D (Vitamin D3) 2,000 unit DAILY 01/14/17 13:00 01/18/17 08:15 2,000 UNIT Lab Laboratory Tests Test 01/18/17 04:30 Sodium Level 139 mmol/L (136-145) Potassium Level 4.2 mmol/L (3.5-5.1) Chloride Level 103 mmol/L (98-107) Carbon Dioxide Level 23 mmol/L (21-32) Anion Gap 13 (6-14) Blood Urea Nitrogen 15 mg/dL (7-20) Creatinine 1.5 mg/dL (0.6-1.0) Estimated GFR (Cockcroft-Gault) 34.3 Glucose Level 146 mg/dL (70-99) Calcium Level 8.1 mg/dL (8.5-10.1) Phosphorus Level 3.7 mg/dL (2.6-4.7) Magnesium Level 2.1 mg/dL (1.8-2.4) Albumin 2.1 g/dL (3.4-5.0) SONIA FRANKLIN MD Jan 18, 2017 09:20
--- NOTE | 2017-01-18 10:02 | RAD ---
Portable chest, 01/17/2017: History: Check catheter insertion Comparison is made to a study from 01/16/2017. No venous catheter is evident on this image. A left-sided transvenous pacemaker is unchanged in position. The heart is at the upper limits of normal in size and unchanged. There is a moderate size unchanged left pleural effusion with underlying left basilar atelectasis/infiltrate. No definite right-sided pleural fluid is seen. No new pulmonary abnormality is evident. IMPRESSION: Unchanged moderate sized left pleural effusion with underlying left basilar atelectasis. Right humerus, 2 views, 01/17/2017: History: Check midline catheter placement There is a catheter entering the patient in the antecubital fossa region. It is doubled back upon itself in the mid to distal forearm. No underlying bony abnormality is detected. IMPRESSION: Malpositioned right upper arm venous catheter as described above.
[2017-01-18 11:00] VITALS: BP 118/43
[2017-01-18] MEDS: FUROSEMIDE INJ 100 MG in IV NORMAL SALINE 100ML 100 ML IV PRN (13:56)
[2017-01-18 14:25] LABS: GAMMA UR 12.9 % (.); M-SPIKE, % Note: % (Not Observed); PROTEIN 24 UR 14702 mg/24 hr (30-150); PROTEIN UR 1130.9 mg/dL (Not Estab.)
[2017-01-18 15:00] VITALS: BP 165/65
[2017-01-18 19:40] VITALS: BP 185/68
[2017-01-18] MEDS: ATORVASTATIN CALCIUM 40 MG TABLET. PO SCH (20:28)
[2017-01-18 23:23] VITALS: BP 154/49
[2017-01-19 03:00] VITALS: BP 145/53
[2017-01-19 06:17] LABS: ALBUMIN 2.7 g/dL (3.4-5.0); CALCIUM 8.4 mg/dL (8.5-10.1); CREATININE 1.6 mg/dL (0.6-1.0); GFR 31.9; PHOSPHORUS 3.7 mg/dL (2.6-4.7); POTASSIUM 3.7 mmol/L (3.5-5.1)
[2017-01-19] MEDS: APIXABAN 5 MG TABLET. PO SCH ×2 (06:41→16:54)
[2017-01-19 07:00] VITALS: BP 163/71
[2017-01-19] MEDS: amLODIPine BESYLATE 10 MG TABLET PO SCH (08:11)
[2017-01-19] MEDS: ASCORBIC ACID 500 MG TABLET PO SCH (08:11)
[2017-01-19] MEDS: POTASSIUM CHLORIDE 20 MEQ TABLET.ER. PO SCH ×3 (08:11→16:55)
[2017-01-19] MEDS: OMEGA-3 FATTY ACIDS/FISH OIL 1,000 MG CAPSULE. PO SCH (08:11)
[2017-01-19] MEDS: ASPIRIN CHEWABLE 81 MG TABLET. PO SCH (08:11)
[2017-01-19] MEDS: CYANOCOBALAMIN (VITAMIN B-12) 1,000 MCG TABLET. PO SCH (08:12)
[2017-01-19] MEDS: CLOPIDOGREL BISULFATE 75 MG TABLET PO SCH (08:12)
[2017-01-19] MEDS: VITAMIN B COMPLEX TABLET. PO SCH (08:12)
[2017-01-19] MEDS: LABETALOL HCL 200 MG TABLET PO SCH ×2 (08:12→20:58)
[2017-01-19] MEDS: CHOLECALCIFEROL (VITAMIN D3) 1,000 UNIT TABLET PO SCH (08:13)
[2017-01-19] MEDS: AMIODARONE HCL 200 MG TABLET. PO SCH (08:13)
[2017-01-19] MEDS: MAGNESIUM OXIDE 400 MG TABLET PO SCH (08:13)
[2017-01-19] MEDS: ISOSORBIDE MONONITRATE ER 30 MG TAB.ER.24H PO SCH (08:13)
[2017-01-19] MEDS: ALBUMIN HUMAN 25% 100 ML IV SCH (08:24)
[2017-01-19] MEDS ORDERED: ASCORBIC ACID 500 MG TABLET ONE (09:00)
[2017-01-19 10:11] LABS: HEMATOCRIT 27.7 % (36.0-47.0); HEMOGLOBIN 9.5 g/dL (12.0-15.5); RED BLOOD COUNT 3.4 x10^6/uL (3.50-5.40); RED CELL DISTRIBUTION WIDTH 16.3 % (11.5-14.5); WHITE BLOOD COUNT 8.6 x10^3/uL (4.0-11.0)
--- NOTE | 2017-01-19 10:59 | PDOC ---
Renal-Progress Notes Subjective Notes Notes STILL FEELS SWOLLEN AND TIGHT IN THE THIGH AREA AND LOWER ABD AREA History of Present Illness Hx of present illness STABLE Vitals Vitals Vital Signs Date Time Temp Pulse Resp B/P (MAP) Pulse Ox O2 Delivery O2 Flow Rate FiO2 01/19/17 08:13 72 163/71 01/19/17 08:00 Room Air 2.0 01/19/17 07:00 97.7 18 92 97.7 Weight Weight [ ] I.O. Intake and Output Intake and Output 01/20/17 07:00 Output Total 1050 ml Balance -1050 ml Output Urine Total 1050 ml Labs Labs Laboratory Tests Test 01/19/17 05:06 White Blood Count 8.6 x10^3/uL (4.0-11.0) Red Blood Count 3.40 x10^6/uL (3.50-5.40) Hemoglobin 9.5 g/dL (12.0-15.5) Hematocrit 27.7 % (36.0-47.0) Mean Corpuscular Volume 81 fL (79-100) Mean Corpuscular Hemoglobin 28 pg (25-35) Mean Corpuscular Hemoglobin Concent 34 g/dL (31-37) Red Cell Distribution Width 16.3 % (11.5-14.5) Platelet Count 437 x10^3/uL (140-400) Sodium Level 141 mmol/L (136-145) Potassium Level 3.7 mmol/L (3.5-5.1) Chloride Level 102 mmol/L (98-107) Carbon Dioxide Level 30 mmol/L (21-32) Anion Gap 9 (6-14) Blood Urea Nitrogen 12 mg/dL (7-20) Creatinine 1.6 mg/dL (0.6-1.0) Estimated GFR (Cockcroft-Gault) 31.9 Glucose Level 128 mg/dL (70-99) Calcium Level 8.4 mg/dL (8.5-10.1) Phosphorus Level 3.7 mg/dL (2.6-4.7) Magnesium Level 1.9 mg/dL (1.8-2.4) Albumin 2.7 g/dL (3.4-5.0) Physical Exam General Appearance: no apparent distress Skin: warm Respiratory: decreased breath sounds Heart: S1S2, RRR Abdomen: soft Extremities: pulses present, edema Neurology: alert, oriented Assessment Assessment IMP CKD STAGE 3-CR STABLE AT 1.6 EDEMA-PERSISTENT BUT BETTER SINGLE FUNCTIONING KIDNEY NEPHROTIC SYNDROME WITH T PROTEIN QUANTIFIED AT 14.5 GMS A DAY HTN - NOT CONTROLLED PLAN CONT LASIX GTT TRIAL OF TALHA-I LOW DOSE NORVASC LABS IN AM DONALD SARAH MD Jan 19, 2017 10:59
[2017-01-19 11:36] VITALS: BP 148/59
[2017-01-19] MEDS: FUROSEMIDE INJ 100 MG in IV NORMAL SALINE 100ML 100 ML IV PRN (14:43)
[2017-01-19 15:00] VITALS: BP 155/60
[2017-01-19 19:15] VITALS: BP 177/62
[2017-01-19] MEDS: ATORVASTATIN CALCIUM 40 MG TABLET. PO SCH (20:57)
[2017-01-19 23:45] VITALS: BP 176/65
[2017-01-19] MEDS: HYDROcodone/APAP 5/325MG 1 TAB TABLET PO PRN (23:59)
[2017-01-20 03:15] VITALS: BP 156/59
[2017-01-20 05:27] LABS: ALBUMIN 2.4 g/dL (3.4-5.0); CALCIUM 8.6 mg/dL (8.5-10.1); CREATININE 1.7 mg/dL (0.6-1.0); GFR 29.7; PHOSPHORUS 4.1 mg/dL (2.6-4.7); POTASSIUM 3.9 mmol/L (3.5-5.1)
[2017-01-20] MEDS: APIXABAN 5 MG TABLET. PO SCH ×2 (06:46→17:00)
[2017-01-20 07:35] VITALS: BP 148/84
[2017-01-20] MEDS: POTASSIUM CHLORIDE 20 MEQ TABLET.ER. PO SCH ×3 (08:04→17:01)
[2017-01-20] MEDS: CYANOCOBALAMIN (VITAMIN B-12) 1,000 MCG TABLET. PO SCH (08:05)
[2017-01-20] MEDS: LABETALOL HCL 200 MG TABLET PO SCH ×2 (08:05→21:14)
[2017-01-20] MEDS: CLOPIDOGREL BISULFATE 75 MG TABLET PO SCH (08:05)
[2017-01-20] MEDS: VITAMIN B COMPLEX TABLET. PO SCH (08:06)
[2017-01-20] MEDS: LISINOPRIL 5 MG TABLET. PO SCH (08:06)
[2017-01-20] MEDS: OMEGA-3 FATTY ACIDS/FISH OIL 1,000 MG CAPSULE. PO SCH (08:06)
[2017-01-20] MEDS: CHOLECALCIFEROL (VITAMIN D3) 1,000 UNIT TABLET PO SCH (08:06)
[2017-01-20] MEDS: ASCORBIC ACID 500 MG TABLET PO SCH (08:07)
[2017-01-20] MEDS: MAGNESIUM OXIDE 400 MG TABLET PO SCH ×2 (08:07→15:48)
[2017-01-20] MEDS: ASPIRIN CHEWABLE 81 MG TABLET. PO SCH (08:08)
[2017-01-20] MEDS: AMIODARONE HCL 200 MG TABLET. PO SCH (08:08)
[2017-01-20] MEDS: ISOSORBIDE MONONITRATE ER 30 MG TAB.ER.24H PO SCH (08:08)
[2017-01-20] MEDS: ALPRAZolam 0.5 MG TABLET PO PRN (08:08)
[2017-01-20] MEDS: amLODIPine BESYLATE 2.5 MG TABLET PO SCH (08:09)
[2017-01-20] MEDS: ALBUTEROL SULFATE 2.5 MG/3 ML NEBU. NEB PRN (08:25)
[2017-01-20] MEDS: FUROSEMIDE INJ 100 MG in IV NORMAL SALINE 100ML 100 ML IV PRN (10:09)
--- NOTE | 2017-01-20 10:26 | PDOC ---
Provider Note Provider Note stable,, exam same- labs same- has had trouble w/ acei in past re 1 kidney/ ANNA , will follow - hb same 9.5-- sleeping now CHRISTINA ROSENBAUM MD Jan 20, 2017 10:26
[2017-01-20 11:00] VITALS: BP 131/60
--- NOTE | 2017-01-20 14:33 | PDOC ---
Renal-Progress Notes Subjective Notes Notes FEELING BETTER History of Present Illness Hx of present illness STABLE Vitals Vitals Vital Signs Date Time Temp Pulse Resp B/P (MAP) Pulse Ox O2 Delivery O2 Flow Rate FiO2 01/20/17 11:00 98.0 60 18 131/60 (83) 94 Room Air 98.0 01/20/17 08:27 2.0 Weight Weight [ ] Labs Labs Laboratory Tests Test 01/20/17 03:00 Sodium Level 141 mmol/L (136-145) Potassium Level 3.9 mmol/L (3.5-5.1) Chloride Level 103 mmol/L (98-107) Carbon Dioxide Level 31 mmol/L (21-32) Anion Gap 7 (6-14) Blood Urea Nitrogen 16 mg/dL (7-20) Creatinine 1.7 mg/dL (0.6-1.0) Estimated GFR (Cockcroft-Gault) 29.7 Glucose Level 155 mg/dL (70-99) Calcium Level 8.6 mg/dL (8.5-10.1) Phosphorus Level 4.1 mg/dL (2.6-4.7) Magnesium Level 1.7 mg/dL (1.8-2.4) Albumin 2.4 g/dL (3.4-5.0) Physical Exam General Appearance: no apparent distress Skin: warm Respiratory: decreased breath sounds Heart: S1S2, RRR Abdomen: soft Extremities: pulses present, edema Neurology: alert, oriented Assessment Assessment IMP CKD STAGE 3-CR STABLE AT 1.6 EDEMA-PERSISTENT BUT BETTER SINGLE FUNCTIONING KIDNEY NEPHROTIC SYNDROME WITH T PROTEIN QUANTIFIED AT 14.5 GMS A DAY HTN - BETTER CONTROLLED PLAN CHANGE LASIX TO PO CONT TALHA-I AND NORVASC NO RENAL BX DUE TO SINGLE FUNCTIONING KIDNEY LABS IN AM DONALD SARAH MD Jan 20, 2017 14:33
[2017-01-20 15:10] VITALS: BP 110/92
[2017-01-20] MEDS: FUROSEMIDE 40 MG TABLET. PO SCH (15:48)
[2017-01-20 19:40] VITALS: BP 146/44
[2017-01-20] MEDS: ATORVASTATIN CALCIUM 40 MG TABLET. PO SCH (21:14)
[2017-01-20] MEDS: HYDROcodone/APAP 5/325MG 1 TAB TABLET PO PRN (22:43)
[2017-01-20 23:15] VITALS: BP 116/65
[2017-01-21 03:15] VITALS: BP 126/60
[2017-01-21 05:29] LABS: CALCIUM 8.4 mg/dL (8.5-10.1); CREATININE 1.8 mg/dL (0.6-1.0); GFR 27.8; MAGNESIUM 1.5 mg/dL (1.8-2.4); PHOSPHORUS 4.1 mg/dL (2.6-4.7)
[2017-01-21] MEDS: APIXABAN 5 MG TABLET. PO SCH ×2 (06:34→08:18)
[2017-01-21 07:00] VITALS: BP 177/63
[2017-01-21] MEDS: FUROSEMIDE 40 MG TABLET. PO SCH ×2 (08:14→14:53)
[2017-01-21] MEDS: ASCORBIC ACID 500 MG TABLET PO SCH (08:15)
[2017-01-21] MEDS: VITAMIN B COMPLEX TABLET. PO SCH (08:15)
[2017-01-21] MEDS: CYANOCOBALAMIN (VITAMIN B-12) 1,000 MCG TABLET. PO SCH (08:15)
[2017-01-21] MEDS: MAGNESIUM OXIDE 400 MG TABLET PO SCH ×2 (08:15→17:17)
[2017-01-21] MEDS: CLOPIDOGREL BISULFATE 75 MG TABLET PO SCH (08:16)
[2017-01-21] MEDS: AMIODARONE HCL 200 MG TABLET. PO SCH (08:16)
[2017-01-21] MEDS: LABETALOL HCL 200 MG TABLET PO SCH ×2 (08:16→20:23)
[2017-01-21] MEDS: OMEGA-3 FATTY ACIDS/FISH OIL 1,000 MG CAPSULE. PO SCH (08:17)
[2017-01-21] MEDS: amLODIPine BESYLATE 2.5 MG TABLET PO SCH (08:17)
[2017-01-21] MEDS: POTASSIUM CHLORIDE 20 MEQ TABLET.ER. PO SCH ×3 (08:17→17:17)
[2017-01-21] MEDS: LISINOPRIL 5 MG TABLET. PO SCH (08:18)
[2017-01-21] MEDS: ASPIRIN CHEWABLE 81 MG TABLET. PO SCH (08:18)
[2017-01-21] MEDS: ISOSORBIDE MONONITRATE ER 30 MG TAB.ER.24H PO SCH (08:18)
[2017-01-21] MEDS: CHOLECALCIFEROL (VITAMIN D3) 1,000 UNIT TABLET PO SCH (08:18)
[2017-01-21 11:00] VITALS: BP 110/46
--- NOTE | 2017-01-21 11:28 | PDOC ---
Renal-Progress Notes Subjective Notes Notes NO NEW COMPLAINTS History of Present Illness Hx of present illness STABLE Vitals Vitals Vital Signs Date Time Temp Pulse Resp B/P (MAP) Pulse Ox O2 Delivery O2 Flow Rate FiO2 01/21/17 08:18 63 177/63 01/21/17 08:10 Room Air 01/21/17 07:00 98.2 20 92 98.2 01/20/17 08:27 2.0 Weight Weight [ ] Labs Labs Laboratory Tests Test 01/21/17 04:05 Sodium Level 141 mmol/L (136-145) Potassium Level 4.0 mmol/L (3.5-5.1) Chloride Level 104 mmol/L (98-107) Carbon Dioxide Level 31 mmol/L (21-32) Anion Gap 6 (6-14) Blood Urea Nitrogen 19 mg/dL (7-20) Creatinine 1.8 mg/dL (0.6-1.0) Estimated GFR (Cockcroft-Gault) 27.8 Glucose Level 157 mg/dL (70-99) Calcium Level 8.4 mg/dL (8.5-10.1) Phosphorus Level 4.1 mg/dL (2.6-4.7) Magnesium Level 1.5 mg/dL (1.8-2.4) Albumin 2.0 g/dL (3.4-5.0) Physical Exam General Appearance: no apparent distress Skin: warm Respiratory: decreased breath sounds Heart: S1S2, RRR Abdomen: soft Extremities: pulses present, edema Neurology: alert, oriented Assessment Assessment IMP CKD STAGE 3-CR STABLE AT 1.8 EDEMA-PERSISTENT BUT BETTER SINGLE FUNCTIONING KIDNEY NEPHROTIC SYNDROME WITH T PROTEIN QUANTIFIED AT 14.5 GMS A DAY HTN - BETTER CONTROLLED LOW MAG PLAN CONT PO LASIX REPLACE MAG CONT TALHA-I AND NORVASC NO RENAL BX DUE TO SINGLE FUNCTIONING KIDNEY LABS IN AM OK TO D/C FROM RENAL STANDPOINT DONALD SARAH MD Jan 21, 2017 11:28
[2017-01-21] MEDS ORDERED: MAGNESIUM SULFATE 2GM 50 ML IV ONE (11:30)
[2017-01-21 15:00] VITALS: BP 135/76
[2017-01-21] MEDS: ANTI-COAG MONITOR BY PHARMACY. MC PRN (16:00)
[2017-01-21 19:30] VITALS: BP 149/63
[2017-01-21] MEDS: ATORVASTATIN CALCIUM 40 MG TABLET. PO SCH (20:23)
[2017-01-21] MEDS: ALBUTEROL SULFATE 2.5 MG/3 ML NEBU. NEB PRN (20:39)
[2017-01-21] MEDS ORDERED: FAMOTIDINE 20 MG TABLET. PO ONE (22:30)
[2017-01-21] MEDS: ALPRAZolam 0.5 MG TABLET PO PRN (22:43)
[2017-01-21] MEDS: HYDROcodone/APAP 5/325MG 1 TAB TABLET PO PRN (22:43)
[2017-01-21 22:50] VITALS: BP 128/74
[2017-01-22 03:30] VITALS: BP 128/48
[2017-01-22 05:02] LABS: CALCIUM 8.4 mg/dL (8.5-10.1); CREATININE 1.8 mg/dL (0.6-1.0); GFR 27.8; POTASSIUM 4.3 mmol/L (3.5-5.1)
[2017-01-22] MEDS: APIXABAN 5 MG TABLET. PO SCH ×2 (06:27→17:17)
[2017-01-22 07:00] VITALS: BP 157/70
[2017-01-22] MEDS ORDERED: FAMOTIDINE 20 MG TABLET. PO SCH (09:00)
--- NOTE | 2017-01-22 09:03 | PDOC ---
Provider Note Provider Note po meds, stable- creat up 1.8 but stable- wiill recheck 01/23, dc if same- rest of meds same CHRISTINA ROSENBAUM MD Jan 22, 2017 09:02
[2017-01-22] MEDS: ASCORBIC ACID 500 MG TABLET PO SCH (09:53)
[2017-01-22] MEDS: FAMOTIDINE 20 MG TABLET. PO SCH (09:54)
[2017-01-22] MEDS: AMIODARONE HCL 200 MG TABLET. PO SCH (09:54)
[2017-01-22] MEDS: ASPIRIN CHEWABLE 81 MG TABLET. PO SCH (09:54)
[2017-01-22] MEDS: CHOLECALCIFEROL (VITAMIN D3) 1,000 UNIT TABLET PO SCH (09:54)
[2017-01-22] MEDS: OMEGA-3 FATTY ACIDS/FISH OIL 1,000 MG CAPSULE. PO SCH (09:54)
[2017-01-22] MEDS: CLOPIDOGREL BISULFATE 75 MG TABLET PO SCH (09:55)
[2017-01-22] MEDS: FUROSEMIDE 40 MG TABLET. PO SCH ×2 (09:55→14:34)
[2017-01-22] MEDS: MAGNESIUM OXIDE 400 MG TABLET PO SCH ×2 (09:55→17:17)
[2017-01-22] MEDS: VITAMIN B COMPLEX TABLET. PO SCH (09:56)
[2017-01-22] MEDS: ISOSORBIDE MONONITRATE ER 30 MG TAB.ER.24H PO SCH (09:56)
[2017-01-22] MEDS: amLODIPine BESYLATE 5 MG TABLET PO SCH (09:56)
[2017-01-22] MEDS: LISINOPRIL 5 MG TABLET. PO SCH (09:57)
[2017-01-22] MEDS: LABETALOL HCL 200 MG TABLET PO SCH ×2 (09:57→21:00)
[2017-01-22] MEDS: POTASSIUM CHLORIDE 20 MEQ TABLET.ER. PO SCH ×2 (09:58→17:18)
[2017-01-22] MEDS: CYANOCOBALAMIN (VITAMIN B-12) 1,000 MCG TABLET. PO SCH (10:03)
[2017-01-22 11:02] VITALS: BP 121/74
--- NOTE | 2017-01-22 11:57 | PDOC ---
Renal-Progress Notes Subjective Notes Notes NO NEW COMPLAINTS History of Present Illness Hx of present illness BETTER Vitals Vitals Vital Signs Date Time Temp Pulse Resp B/P (MAP) Pulse Ox O2 Delivery O2 Flow Rate FiO2 01/22/17 11:02 97.7 89 19 121/74 (90) 96 Room Air 97.7 01/22/17 03:30 2.0 Weight Weight [ ] I.O. Intake and Output Intake and Output 01/23/17 07:00 Output Total 300 ml Balance -300 ml Output Urine Total 300 ml # Bowel Movements 2 Labs Labs Laboratory Tests Test 01/22/17 04:15 Sodium Level 138 mmol/L (136-145) Potassium Level 4.3 mmol/L (3.5-5.1) Chloride Level 105 mmol/L (98-107) Carbon Dioxide Level 26 mmol/L (21-32) Anion Gap 7 (6-14) Blood Urea Nitrogen 20 mg/dL (7-20) Creatinine 1.8 mg/dL (0.6-1.0) Estimated GFR (Cockcroft-Gault) 27.8 Glucose Level 142 mg/dL (70-99) Calcium Level 8.4 mg/dL (8.5-10.1) Physical Exam General Appearance: no apparent distress Skin: warm Respiratory: decreased breath sounds Heart: S1S2, RRR Abdomen: soft Extremities: pulses present, edema Neurology: alert, oriented Assessment Assessment IMP CKD STAGE 3-CR STABLE AT 1.8 EDEMA-PERSISTENT BUT BETTER SINGLE FUNCTIONING KIDNEY NEPHROTIC SYNDROME WITH T PROTEIN QUANTIFIED AT 14.5 GMS A DAY HTN - BETTER CONTROLLED LOW MAG-CORRECTED PLAN CONT PO LASIX CONT PO MAG OXIDE CONT TALHA-I AND NORVASC NO RENAL BX DUE TO SINGLE FUNCTIONING KIDNEY LABS IN AM OK TO D/C FROM RENAL STANDPOINT DONALD SARAH MD Jan 22, 2017 11:57
[2017-01-22 15:17] VITALS: BP 132/78
[2017-01-22 19:00] VITALS: BP 154/59
[2017-01-22] MEDS: ATORVASTATIN CALCIUM 40 MG TABLET. PO SCH (20:59)
[2017-01-22 23:00] VITALS: BP 147/43
[2017-01-22] MEDS: HYDROcodone/APAP 5/325MG 1 TAB TABLET PO PRN (23:15)
[2017-01-22] MEDS: ALPRAZolam 0.5 MG TABLET PO PRN (23:15)
[2017-01-23 02:51] VITALS: BP 125/64
[2017-01-23 05:03] LABS: CALCIUM 8.5 mg/dL (8.5-10.1); CREATININE 2.1 mg/dL (0.6-1.0); GFR 23.3; POTASSIUM 4.4 mmol/L (3.5-5.1)
[2017-01-23] MEDS: APIXABAN 5 MG TABLET. PO SCH ×2 (06:37→17:42)
[2017-01-23 07:00] VITALS: BP 144/58
[2017-01-23] MEDS: MAGNESIUM OXIDE 400 MG TABLET PO SCH ×2 (07:43→16:43)
[2017-01-23] MEDS: POTASSIUM CHLORIDE 20 MEQ TABLET.ER. PO SCH (09:00)
--- NOTE | 2017-01-23 09:12 | PDOC ---
Provider Note Provider Note creat up from 1.8 to 2.1, suspect acei induced, has shown before- will dc lisinopril to see if creat stabilizes, rather than dc and have her come back in arf CHRISTINA ROSENBAUM MD Jan 23, 2017 09:12
[2017-01-23] MEDS: CYANOCOBALAMIN (VITAMIN B-12) 1,000 MCG TABLET. PO SCH (09:21)
[2017-01-23] MEDS: FUROSEMIDE 40 MG TABLET. PO SCH ×2 (09:21→15:13)
[2017-01-23] MEDS: ISOSORBIDE MONONITRATE ER 30 MG TAB.ER.24H PO SCH (09:21)
[2017-01-23] MEDS: OMEGA-3 FATTY ACIDS/FISH OIL 1,000 MG CAPSULE. PO SCH (09:22)
[2017-01-23] MEDS: CLOPIDOGREL BISULFATE 75 MG TABLET PO SCH (09:22)
[2017-01-23] MEDS: VITAMIN B COMPLEX TABLET. PO SCH (09:22)
[2017-01-23] MEDS: CHOLECALCIFEROL (VITAMIN D3) 1,000 UNIT TABLET PO SCH (09:22)
[2017-01-23] MEDS: amLODIPine BESYLATE 5 MG TABLET PO SCH (09:22)
[2017-01-23] MEDS: ASCORBIC ACID 500 MG TABLET PO SCH (09:22)
[2017-01-23] MEDS: LABETALOL HCL 200 MG TABLET PO SCH ×2 (09:23→20:40)
[2017-01-23] MEDS: AMIODARONE HCL 200 MG TABLET. PO SCH (09:23)
[2017-01-23] MEDS: ASPIRIN CHEWABLE 81 MG TABLET. PO SCH (09:23)
[2017-01-23] MEDS: FAMOTIDINE 20 MG TABLET. PO SCH (09:24)
[2017-01-23 11:02] VITALS: BP 138/54
--- NOTE | 2017-01-23 12:13 | PDOC ---
Renal-Progress Notes Subjective Notes Notes NO NEW COMPLAINTS History of Present Illness Hx of present illness STABLE Vitals Vitals Vital Signs Date Time Temp Pulse Resp B/P (MAP) Pulse Ox O2 Delivery O2 Flow Rate FiO2 01/23/17 11:02 66 19 138/54 (82) 92 Room Air 01/23/17 07:00 97.9 97.9 Weight Weight [ ] I.O. Intake and Output Intake and Output 01/24/17 07:00 # Bowel Movements 1 Labs Labs Laboratory Tests Test 01/23/17 04:04 Sodium Level 140 mmol/L (136-145) Potassium Level 4.4 mmol/L (3.5-5.1) Chloride Level 104 mmol/L (98-107) Carbon Dioxide Level 29 mmol/L (21-32) Anion Gap 7 (6-14) Blood Urea Nitrogen 22 mg/dL (7-20) Creatinine 2.1 mg/dL (0.6-1.0) Estimated GFR (Cockcroft-Gault) 23.3 Glucose Level 146 mg/dL (70-99) Calcium Level 8.5 mg/dL (8.5-10.1) Physical Exam General Appearance: no apparent distress Skin: warm Respiratory: decreased breath sounds Heart: S1S2, RRR Abdomen: soft Extremities: pulses present, edema Neurology: alert, oriented Assessment Assessment IMP CKD STAGE 3-CR STABLE AT 1.8 MILD FRANTZ WITH CR UP TO 2.1 EDEMA-PERSISTENT BUT BETTER SINGLE FUNCTIONING KIDNEY NEPHROTIC SYNDROME WITH T PROTEIN QUANTIFIED AT 14.5 GMS A DAY HTN - BETTER CONTROLLED LOW MAG-CORRECTED PLAN CONT PO LASIX CONT PO MAG OXIDE NO RENAL BX DUE TO SINGLE FUNCTIONING KIDNEY LABS IN AM AGREE WITH DR ROSENBAUM IN STOPPING TALHA-I DONALD SARAH MD Jan 23, 2017 12:13
[2017-01-23 15:29] VITALS: BP 105/59
[2017-01-23] MEDS: POTASSIUM CHLORIDE 10 MEQ TABLET.ER. PO SCH (17:41)
[2017-01-23 19:10] VITALS: BP 143/77
[2017-01-23] MEDS: ATORVASTATIN CALCIUM 40 MG TABLET. PO SCH (20:40)
[2017-01-23 22:40] VITALS: BP 164/68
[2017-01-23] MEDS: HYDROcodone/APAP 5/325MG 1 TAB TABLET PO PRN (23:20)
[2017-01-23] MEDS: ALPRAZolam 0.5 MG TABLET PO PRN (23:20)
[2017-01-24 03:00] VITALS: BP 119/54
[2017-01-24 07:00] VITALS: BP 142/51
[2017-01-24 07:12] LABS: CALCIUM 8.5 mg/dL (8.5-10.1); CREATININE 1.9 mg/dL (0.6-1.0); GFR 26.1
[2017-01-24] MEDS: FAMOTIDINE 20 MG TABLET. PO SCH (09:00)
[2017-01-24] MEDS: ASCORBIC ACID 500 MG TABLET PO SCH (09:30)
[2017-01-24] MEDS: APIXABAN 5 MG TABLET. PO SCH (09:30)
[2017-01-24] MEDS: MAGNESIUM OXIDE 400 MG TABLET PO SCH (09:30)
[2017-01-24] MEDS: CYANOCOBALAMIN (VITAMIN B-12) 1,000 MCG TABLET. PO SCH (09:30)
[2017-01-24] MEDS: LABETALOL HCL 200 MG TABLET PO SCH (09:31)
[2017-01-24] MEDS: OMEGA-3 FATTY ACIDS/FISH OIL 1,000 MG CAPSULE. PO SCH (09:31)
[2017-01-24] MEDS: CLOPIDOGREL BISULFATE 75 MG TABLET PO SCH (09:32)
[2017-01-24] MEDS: CHOLECALCIFEROL (VITAMIN D3) 1,000 UNIT TABLET PO SCH (09:32)
[2017-01-24] MEDS: AMIODARONE HCL 200 MG TABLET. PO SCH (09:32)
[2017-01-24] MEDS: amLODIPine BESYLATE 5 MG TABLET PO SCH (09:33)
[2017-01-24] MEDS: ISOSORBIDE MONONITRATE ER 30 MG TAB.ER.24H PO SCH (09:33)
[2017-01-24] MEDS: VITAMIN B COMPLEX TABLET. PO SCH (09:34)
[2017-01-24] MEDS: ASPIRIN CHEWABLE 81 MG TABLET. PO SCH (09:34)
[2017-01-24] MEDS: POTASSIUM CHLORIDE 10 MEQ TABLET.ER. PO SCH (09:34)
[2017-01-24] MEDS: FUROSEMIDE 40 MG TABLET. PO SCH (09:34)
--- NOTE | 2017-01-24 09:35 | DISCH ---
DISCHARGE INSTRUCTIONS Condition on Discharge Condition on Discharge: Stable Activity After Discharge Activity Instructions for Disc: No restrictions Diet after Discharge Diet after Discharge: Low Sodium 4 gm Follow-Up Follow up with: dr selvin Garza w CHRISTINA ROSENBAUM MD Jan 24, 2017 09:35
--- NOTE | 2017-01-24 09:44 | PDOC ---
Provider Note Provider Note [id number] CHRISTINA ROSENBAUM MD Jan 24, 2017 09:44
[2017-01-24 11:00] VITALS: BP 135/49
--- NOTE | 2017-01-24 11:32 | PDOC ---
Renal-Progress Notes Subjective Notes Notes NONE History of Present Illness Hx of present illness STABLE Vitals Vitals Vital Signs Date Time Temp Pulse Resp B/P (MAP) Pulse Ox O2 Delivery O2 Flow Rate FiO2 01/24/17 11:00 98.0 60 18 135/49 (77) 90 Room Air 98.0 Weight Weight [ ] Labs Labs Laboratory Tests Test 01/24/17 04:30 Sodium Level 140 mmol/L (136-145) Potassium Level 4.0 mmol/L (3.5-5.1) Chloride Level 105 mmol/L (98-107) Carbon Dioxide Level 29 mmol/L (21-32) Anion Gap 6 (6-14) Blood Urea Nitrogen 20 mg/dL (7-20) Creatinine 1.9 mg/dL (0.6-1.0) Estimated GFR (Cockcroft-Gault) 26.1 Glucose Level 155 mg/dL (70-99) Calcium Level 8.5 mg/dL (8.5-10.1) Physical Exam General Appearance: no apparent distress Skin: warm Respiratory: decreased breath sounds Heart: S1S2, RRR Abdomen: soft Extremities: pulses present, edema Neurology: alert, oriented Assessment Assessment IMP CKD STAGE 3-CR STABLE AT 1.8 MILD FRANTZ RESOLVED WITH CR DOWN TO 1.9 EDEMA-PERSISTENT BUT BETTER SINGLE FUNCTIONING KIDNEY NEPHROTIC SYNDROME WITH T PROTEIN QUANTIFIED AT 14.5 GMS A DAY HTN - BETTER CONTROLLED LOW MAG-CORRECTED PLAN CONT WITH OUT TALHA-I DISCHARGE TODAY DONALD SARAH MD Jan 24, 2017 11:32
--- NOTE | 2017-01-24 19:27 | DS ---
DATE OF DISCHARGE: 01/24/2017 HOSPITAL SUMMARY: A 71-year-old white female, came in with left-sided pleural effusion and anasarca with outpatient urine showing 14 gram of protein consistent with nephrotic range proteinuria. Creatinine was 1.4 on admission, went up to 2.1 prior to discharge, and when lisinopril was stopped her creatinine went down to 1.9 with a normal potassium. Albumin was 1.5 on admission, 2.0 at discharge, magnesium borderline low at 1.7, and hemoglobin 10, which is normal for her. Myeloma studies were negative. Hepatitis A, B and C were all negative as well. Chest x-ray showed left-sided pleural effusion, which was likely nephrogenic and did not progress and was not clinically a problem. She was diuresed with Lasix and meds were added, but she did not tolerate lisinopril as evidenced by increasing creatinine and when this drug was stopped her creatinine came back down to 1.9, which will be her new baseline. FINAL DIAGNOSES: 1. Nephrotic syndrome with nephrotic range proteinuria, etiology undetermined. 2. Chronic kidney disease 3, stable. 3. Left pleural effusion, likely secondary to nephrotic range proteinuria and hypoalbuminemia. 4. Anemia of chronic disease. OPERATIONS, PROCEDURES, AND COMPLICATIONS: None. CONSULTATIONS: Dr. Herbert and Dr. Perales's group. DISPOSITION: No TALHA inhibitor will be used. We will add Lasix 40 mg twice a day to home meds. Potassium twice a day, office followup with lab work in 1 week and renal biopsy could not be accomplished because she has only one functional kidney and the risk would outweigh the benefit and the patient understands this. CHRITSINA ROSENBAUM MD DR: AVNI/concetta JOB#: [id number] / [id number]
[2017-02-06] MEDS ORDERED: RANI150T2 (13:38)
[2017-02-06] MEDS ORDERED: DOXY100C14 (16:36)
== END 2017-01-24 13:00 | disposition home or self-care (01) | DRG 682 ==
LOC: ER 08:16 → 2 NORTH 09:44
PROVIDERS: ADMIT Family Medicine; ATTEND Family Medicine
PROC: 02HV33Z Insertion of Infusion Device into Superior Vena Cava, Percutaneous Approach (ICD-10-PCS; principal; 2017-01-17)
DX: N17.9 Acute kidney failure, unspecified (principal); I50.33 Acute on chronic diastolic (congestive) heart failure; J90 Pleural effusion, not elsewhere classified; E11.21 Type 2 diabetes mellitus with diabetic nephropathy; E11.22 Type 2 diabetes mellitus with diabetic chronic kidney disease; E88.09 Other disorders of plasma-protein metabolism, not elsewhere classified; I49.5 Sick sinus syndrome; I13.0 Hypertensive heart and chronic kidney disease with heart failure and stage 1 through stage 4 chronic kidney disease, or unspecified chronic kidney disease; N18.3 Chronic kidney disease, stage 3 (moderate); D63.8 Anemia in other chronic diseases classified elsewhere; E78.00 Pure hypercholesterolemia, unspecified; E78.5 Hyperlipidemia, unspecified; I25.10 Atherosclerotic heart disease of native coronary artery without angina pectoris; I48.91 Unspecified atrial fibrillation; I73.9 Peripheral vascular disease, unspecified; R60.1 Generalized edema; M19.90 Unspecified osteoarthritis, unspecified site; Z82.49 Family history of ischemic heart disease and other diseases of the circulatory system; Z89.612 Acquired absence of left leg above knee; Z95.0 Presence of cardiac pacemaker; Z95.1 Presence of aortocoronary bypass graft; Z98.61 Coronary angioplasty status; Z88.6 Allergy status to analgesic agent; Z88.1 Allergy status to other antibiotic agents; Z88.0 Allergy status to penicillin; Z88.8 Allergy status to other drugs, medicaments and biological substances; Z79.4 Long term (current) use of insulin
CPT/HCPCS: 36415; 36569; 71010; 73060; 76770; 80048; 80053; 80069; 80074; 81001; 82553; 82575; 82728; 83520; 83540; 83550; 83735; 83880; 83970; 84156; 84165; 84166; 84484; 85018; 85025; 85027; 85045; 85610; 85730; 86334; 86704; 86706; 93005; 93971; 94250; 94640; 94760; 96374; J1940; J7060; J7613; P9046; 99285-25

== ENCOUNTER 2017-01-28 06:00 | Inpatient (IN) | payer MEDICARE, OTHER ==
[~2017-01-28] VITALS: Ht 170.2 cm; Wt 85.1 kg
--- NOTE | 2017-01-28 06:25 | EKG ---
[facility] [address] [place] [address] Test Date: 2017-01-28 Test Time: 06:06:52 Pat Name: MARISA RIOJAS Department: Room: Gender: F [employer] Driver: : [id number] Requested By: FELIEP RODRIGUEZ Order Number: [id number] Reading MD: Bhupendra Kemp Measurements Intervals Morris Rate: 60 P: MI: QRS: 3 QRSD: 140 T: 7 QT: 506 QTc: 506 Interpretive Statements SUSPECT A-PACED RHYTHM RBBB Electronically Signed On 02-19-2017 14:15:04 CDT by Bhupendra Kemp
--- NOTE | 2017-01-28 06:50 | PHYS DOC ---
Past Medical History Past Medical History: CAD, Diabetes-Type II, High Cholesterol, Heart Disease, Hypertension, Other Additional Past Medical Histor: Carpal Tunnel Past Surgical History: Coronary Bypass Surgery, Pacemaker, Other Additional Past Surgical Histo: LEFT AKA; right carpal tunnel release Alcohol Use: None Drug Use: None Adult General Chief Complaint Chief Complaint: SHORTNESS OF BREATH HPI HPI Patient is a 71 year old female who presents with a "I just don't feel well". Symptoms started yesterday, includes feeling nauseous and short of breath. Pt denies any vomiting, cough, fever. Initially reported no pain, then stated some "pressure" up in mid abdomen. No relieving or exacerbating factors, denies previous similar symptoms, does not feel same as when she had MD, denies dysuria but reports changes in urinated, she is unable to describe. Reports she is taking her lasix as prescribed. Denies chest pain. Reports edema in RLE has improved. PCP is Dr. Christina Pritchard Review of Systems Review of Systems Constitutional: Denies fever or chills [] Eyes: Denies eye pain [] HENT: Denies nasal congestion or sore throat [] Respiratory: Per history of present illness Cardiovascular: Denies chest pain GI: Denies change in stools : Denies dysuria or hematuria [] Musculoskeletal: Denies back pain Integument: Denies rash Neurologic: Denies headache, focal weakness or sensory changes [] Current Medications Current Medications Current Medications Medications (Trade) Dose Ordered Sig/Shilo Start Time Stop Time Status Last Admin Dose Admin Fentanyl Citrate (Fentanyl 2ml Vial) 50 mcg 1X ONCE 01/28/17 07:45 01/28/17 07:46 DC Metoclopramide HCl (Reglan) 10 mg 1X ONCE 01/28/17 07:00 01/28/17 07:01 DC 01/28/17 06:59 10 MG Ondansetron HCl (Zofran) 4 mg 1X ONCE 01/28/17 07:00 01/28/17 07:01 DC 01/28/17 06:58 4 MG Sodium Chloride 1,000 ml @ 100 mls/hr 1X ONCE 01/28/17 07:00 01/28/17 16:59 01/28/17 06:59 100 MLS/HR Allergies Allergies Allergies Coded Allergies Type Severity Reaction Last Updated Verified Penicillins Allergy Intermediate 01/05/16 Yes bacitracin Allergy Intermediate 01/05/16 Yes ciprofloxacin Allergy Intermediate 11/02/13 Yes erythromycin base Allergy Intermediate 01/05/16 Yes neomycin Allergy Intermediate 01/05/16 Yes niacin Allergy Intermediate 04/14/14 Yes polymyxin B Allergy Intermediate 11/02/13 Yes Physical Exam Physical Exam Constitutional: Well developed, well nourished male appears uncomfortable HENT: Normocephalic, atraumatic, bilateral external ears normal, oropharynx dry Eyes: PERRLA, EOMI, conjunctiva normal, no discharge. Neck: Normal range of motion, supple, no stridor. Cardiovascular:Heart rate regular with regular rhythm, harsh systolic murmur Lungs & Thorax: Bilateral breath sounds clear to auscultation, no wheeze, crackles or rhonchi appreciated Abdomen: Soft, nondistended, diffusely intermittent tenderness to palpation without focal findings, no guarding or peritoneal signs Skin: Warm, dry Back: No tenderness Extremities: No tenderness, no cyanosis, no edema. [] Neurologic: Alert and oriented X 3, normal motor function, normal sensory function, no focal deficits noted. [] Current Patient Data Vital Signs Vital Signs Date Time Temp Pulse Resp B/P (MAP) Pulse Ox O2 Delivery O2 Flow Rate FiO2 01/28/17 07:35 61 19 154/67 (96) 94 Room Air 01/28/17 06:19 97.9 97.9 Lab Values Laboratory Tests Test 01/28/17 06:07 01/28/17 07:24 White Blood Count 9.7 x10^3/uL (4.0-11.0) Red Blood Count 3.33 x10^6/uL (3.50-5.40) L Hemoglobin 9.4 g/dL (12.0-15.5) L Hematocrit 26.9 % (36.0-47.0) L Mean Corpuscular Volume 81 fL (79-100) Mean Corpuscular Hemoglobin 28 pg (25-35) Mean Corpuscular Hemoglobin Concent 35 g/dL (31-37) Red Cell Distribution Width 16.4 % (11.5-14.5) H Platelet Count 417 x10^3/uL (140-400) H Neutrophils (%) (Auto) 67 % (31-73) Lymphocytes (%) (Auto) 19 % (24-48) L Monocytes (%) (Auto) 9 % (0-9) Eosinophils (%) (Auto) 4 % (0-3) H Basophils (%) (Auto) 1 % (0-3) Neutrophils # (Auto) 6.6 x10^3uL (1.8-7.7) Lymphocytes # (Auto) 1.8 x10^3/uL (1.0-4.8) Monocytes # (Auto) 0.9 x10^3/uL (0.0-1.1) Eosinophils # (Auto) 0.4 x10^3/uL (0.0-0.7) Basophils # (Auto) 0.1 x10^3/uL (0.0-0.2) Prothrombin Time 14.7 SEC (11.7-14.0) H Prothrombin Time INR 1.2 (0.8-1.1) H Sodium Level 137 mmol/L (136-145) Potassium Level 3.5 mmol/L (3.5-5.1) Chloride Level 102 mmol/L (98-107) Carbon Dioxide Level 28 mmol/L (21-32) Anion Gap 7 (6-14) Blood Urea Nitrogen 22 mg/dL (7-20) H Creatinine 1.8 mg/dL (0.6-1.0) H Estimated GFR (Cockcroft-Gault) 27.8 BUN/Creatinine Ratio 12 (6-20) Glucose Level 151 mg/dL (70-99) H Calcium Level 8.9 mg/dL (8.5-10.1) Magnesium Level 1.8 mg/dL (1.8-2.4) Total Bilirubin 0.4 mg/dL (0.2-1.0) Aspartate Amino Transferase (AST) 15 U/L (15-37) Alanine Aminotransferase (ALT) 17 U/L (14-59) Alkaline Phosphatase 88 U/L (46-116) Troponin I Quantitative 0.024 ng/mL (0.000-0.055) CY-Rwr-X-Type Natriuretic Peptide 3101 pg/mL (0-124) H Total Protein 6.2 g/dL (6.4-8.2) L Albumin 2.0 g/dL (3.4-5.0) L Albumin/Globulin Ratio 0.5 (1.0-1.7) L Lipase 137 U/L (73-393) Urine Collection Type Void Urine Color Yellow Urine Clarity Clear Urine pH 7.0 Urine Specific [place] 1.020 Urine Protein >=300 mg/dL (NEG-TRACE) Urine Glucose (UA) 100 mg/dL (NEG) Urine Ketones (Stick) Negative mg/dL (NEG) Urine Blood Trace (NEG) Urine Nitrite Negative (NEG) Urine Bilirubin Negative (NEG) Urine Urobilinogen Dipstick 0.2 mg/dL (0.2 mg/dL) Urine Leukocyte Esterase Trace (NEG) Urine RBC 1-2 /HPF (0-2) Urine WBC 5-10 /HPF (0-4) Urine Squamous Epithelial Cells Few /LPF Urine Bacteria Few /HPF (0-FEW) Urine Mucus Mod /LPF Laboratory Tests 01/28/17 06:07 Laboratory Tests 01/28/17 06:07 EKG EKG 60 bpm, monitor shows atrial paced, normal axis, QTC of 506, biphasic T-wave in precordial leads, otherwise nonischemic T waves, interpreted by me[] Radiology/Procedures Radiology/Procedures cxr: IMPRESSION: Ongoing moderate sized left pleural effusion with underlying left basilar atelectasis/infiltrate. ctABD /PELVIS: IMPRESSION: 1. Moderate sized left pleural effusion with mild to moderate underlying left lower lobe and lingular atelectasis. 2. Extensive calcific plaquing of aorta and its branches including the coronary arteries and the proximal renal arteries. 3. Severe right renal atrophy. 4. Sigmoid diverticulosis. 5. Cholelithiasis. 6. Nonspecific subcutaneous edema in the lower anterior abdominal wall. Course & Med Decision Making Course & Med Decision Making Pertinent Labs and Imaging studies reviewed. (See chart for details) PT started on 100 mils per hour IV fluids, fentanyl given for pain relief along with Zofran. Patient symptoms appear to be somewhat improved but patient still says that she feels abdominal pain. Her pain appears to move and areas. She continues to have a large left-sided pleural effusion which has developed over the last month. Thoracentesis was not performed on last hospitalization due to her multiple blood thinners. He does not appear to be improving. I did consult with Dr. Beckford by phone, I spoke with Dr. Pritchard who agreed to accept the patient to [facility] and a consult was placed. Eb Disclaimer Dragon Disclaimer This electronic medical record was generated, in whole or in part, using a voice recognition dictation system. Departure Departure Impression: Primary Impression: Pleural effusion Additional Impression: Abdominal pain Disposition: ADMITTED INPATIENT Admitting Physician: Christina Pritchard Condition: STABLE Referrals: CHRISTINA PRITCHARD MD (PCP) Problem Qualifiers FELIPE RODRIGUEZ MD Jan 28, 2017 06:50
[2017-01-28 06:51] LABS: BASO # 0.1 x10^3/uL (0.0-0.2); BASO % 1 % (0-3); EOS % 4 % (0-3); HEMATOCRIT 26.9 % (36.0-47.0); HEMOGLOBIN 9.4 g/dL (12.0-15.5); LYMPH # 1.8 x10^3/uL (1.0-4.8); LYMPH % 19 % (24-48); MEAN CORPUSCULAR HEMOGLOBIN 28 pg (25-35); MEAN CORPUSCULAR HGB CONC 35 g/dL (31-37); MEAN CORPUSCULAR VOLUME 81 fL (79-100); MONO % 9 % (0-9); NEUT % 67 % (31-73); PLATELET COUNT 417 x10^3/uL (140-400); RED BLOOD COUNT 3.33 x10^6/uL (3.50-5.40); RED CELL DISTRIBUTION WIDTH 16.4 % (11.5-14.5); WHITE BLOOD COUNT 9.7 x10^3/uL (4.0-11.0)
[2017-01-28 06:57] LABS: CALCIUM 8.9 mg/dL (8.5-10.1); CREATININE 1.8 mg/dL (0.6-1.0); GFR 27.8; POTASSIUM 3.5 mmol/L (3.5-5.1)
[2017-01-28] MEDS ORDERED: IV NORMAL SALINE 1000ML BAG 1,000 ML IV ONE (07:00)
[2017-01-28] MEDS ORDERED: ONDANSETRON PF 4 MG/2 ML VIAL. IV ONE (07:00)
[2017-01-28] MEDS ORDERED: METOCLOPRAMIDE HCL 10 MG/2 ML VIAL. IV ONE (07:00)
[2017-01-28 07:01] LABS: INR 1.2 (0.8-1.1); PROTHROMBIN TIME PATIENT 14.7 SEC (11.7-14.0)
[2017-01-28 07:02] LABS: ALBUMIN/GLOBULIN RATIO 0.5 (1.0-1.7); MAGNESIUM 1.8 mg/dL (1.8-2.4); TOTAL BILIRUBIN 0.4 mg/dL (0.2-1.0); TOTAL PROTEIN 6.2 g/dL (6.4-8.2)
--- NOTE | 2017-01-28 07:09 | RAD ---
Portable chest, 01/28/2017: History: Shortness of breath Comparison is made to a study from 01/17/2017. A left-sided transvenous pacemaker remains in place with 2 leads extending into the right heart. There has been a previous median sternotomy. The heart is at the upper limits of normal in size. The pulmonary vascularity is within normal limits. There is a moderate size left pleural effusion with underlying left basilar atelectasis/infiltrate. Similar findings were present on the previous study. The right chest is clear. No new abnormality is detected. IMPRESSION: Ongoing moderate sized left pleural effusion with underlying left basilar atelectasis/infiltrate.
[2017-01-28 07:44] LABS: BILIRUBIN,URINE NEGATIVE (NEG); GLUCOSE,URINE 100 mg/dL (NEG); NITRITE,URINE NEGATIVE (NEG); PROTEIN,URINE >=300 mg/dL (NEG-TRACE); UROBILINOGEN,URINE 0.2 mg/dL (0.2 mg/dL)
[2017-01-28] MEDS ORDERED: fentaNYL PF VIAL 100 MCG/2 ML VIAL IV ONE (07:45)
[2017-01-28 07:59] LABS: SQUAMOUS EPITHELIAL CELL,UR FEW /LPF
[2017-01-28 08:00] LABS: BACTERIA,URINE FEW /HPF (0-FEW)
--- NOTE | 2017-01-28 08:56 | RAD ---
CT of the chest, abdomen and pelvis without contrast, 01/28/2017: History: Abdominal pain, nausea, pleural effusion Noncontrast scans were obtained as requested. Sternal wires are present. A left-sided transvenous pacemaker is in place. There is calcific plaquing of the aorta and its branches. Moderate coronary artery calcifications are present. No mediastinal adenopathy is seen. There appears to be a small left thyroid mass, not clearly delineated on these scans. There is a moderate sized left pleural effusion, not present on 09/15/2014. There is mild to moderate underlying atelectasis in the left lower lobe and lingula. No right-sided pleural fluid or significant infiltrate is evident. There are calcified granulomata in the liver and spleen. The unopacified liver is otherwise unremarkable. There are densities along the dependent wall the gallbladder compatible with gallstones. No gallbladder wall thickening or pericholecystic edema is seen. The pancreas is unremarkable. The right kidney is severely atrophic. There is mild left renal cortical scarring. The kidneys show no evidence of obstruction. There is considerable calcific plaquing of the abdominal aorta and its branches. The main renal arteries are heavily calcified proximally. No abdominal or pelvic adenopathy is seen. The uterus is unremarkable. There are diverticula in the sigmoid colon. No paracolonic inflammatory process is seen. The bowel loops are not dilated. A portion of the appendix is visualized and it is unremarkable. No free fluid or free air is evident in the abdomen or pelvis. There is streaky subcutaneous edema in the anterior abdominal wall at the pelvic level. There is mild dependent subcutaneous edema posteriorly in the lumbar region. An internal fixation device is present in the proximal left femur. There are moderate scattered degenerative changes in the spine. IMPRESSION: 1. Moderate sized left pleural effusion with mild to moderate underlying left lower lobe and lingular atelectasis. 2. Extensive calcific plaquing of aorta and its branches including the coronary arteries and the proximal renal arteries. 3. Severe right renal atrophy. 4. Sigmoid diverticulosis. 5. Cholelithiasis. 6. Nonspecific subcutaneous edema in the lower anterior abdominal wall. PQRS Compliance Statement: One or more of the following individualized dose reduction techniques were utilized for this examination: 1. Automated exposure control 2. Adjustment of the mA and/or kV according to patient size 3. Use of iterative reconstruction technique
[2017-01-28] MEDS ORDERED: FURO-69 PO (10:53)
[2017-01-28 11:00] VITALS: BP 148/55
[2017-01-28] MEDS: AMIODARONE HCL 200 MG TABLET. PO SCH (13:22)
[2017-01-28] MEDS: OMEGA-3 FATTY ACIDS/FISH OIL 1,000 MG CAPSULE. PO SCH (13:23)
[2017-01-28] MEDS: ISOSORBIDE MONONITRATE ER 30 MG TAB.ER.24H PO SCH (13:23)
[2017-01-28] MEDS: ASCORBIC ACID 500 MG TABLET PO SCH (13:23)
[2017-01-28] MEDS: CYANOCOBALAMIN (VITAMIN B-12) 1,000 MCG TABLET. PO SCH (13:24)
[2017-01-28] MEDS: POTASSIUM CHLORIDE 10 MEQ TABLET.ER. PO SCH ×2 (13:26→17:02)
[2017-01-28] MEDS: HYDROcodone/APAP 5/325MG 1 TAB TABLET PO SCH ×2 (13:26→21:00)
[2017-01-28] MEDS: FUROSEMIDE 20 MG TABLET PO SCH (13:26)
[2017-01-28] MEDS: LABETALOL HCL 200 MG TABLET PO SCH ×2 (13:27→21:57)
[2017-01-28] MEDS: APIXABAN 5 MG TABLET. PO SCH ×2 (13:28→21:00)
[2017-01-28] MEDS: amLODIPine BESYLATE 5 MG TABLET PO SCH (13:28)
[2017-01-28] MEDS: CHOLECALCIFEROL (VITAMIN D3) 1,000 UNIT TABLET PO SCH (13:28)
[2017-01-28] MEDS ORDERED: MAGNESIUM OXIDE 400 MG TABLET PO SCH (14:00)
[2017-01-28] MEDS ORDERED: ASPIRIN CHEWABLE 81 MG TABLET. PO SCH (14:00)
[2017-01-28] MEDS ORDERED: CLOPIDOGREL BISULFATE 75 MG TABLET PO SCH (14:00)
[2017-01-28 15:00] VITALS: BP 112/33
[2017-01-28] MEDS ORDERED: FLU VACC QS2017-18 (36MOS+)/PF 0.5 ML SYRINGE. VAX IM ONE (17:00)
[2017-01-28 19:00] VITALS: BP 142/56
[2017-01-28] MEDS: ATORVASTATIN CALCIUM 40 MG TABLET. PO SCH (21:56)
[2017-01-28 23:00] VITALS: BP 171/65
[2017-01-29] VITALS (8 sets, daily range): BP systolic 118–168; BP diastolic 47–62
--- NOTE | 2017-01-29 08:41 | PDOC ---
Provider Note Provider Note [id number] CHRISTINA ROSENBAUM MD Jan 29, 2017 08:41
[2017-01-29] MEDS: HYDROcodone/APAP 5/325MG 1 TAB TABLET PO SCH ×3 (09:00→21:04)
--- NOTE | 2017-01-29 09:07 | HP ---
ADMIT DATE: 01/29/2017 CHIEF COMPLAINT: Increasing shortness of breath. HISTORY OF PRESENT ILLNESS: A 71-year-old white female, just recently discharged after evaluation for nephrotic syndrome, has increasing shortness of breath and some left-sided chest discomfort. She has developed pleural effusion in last [address] scan showed increasing fluid on that side compared to last scan a few weeks ago. In 08/2016, there was no sign of pleural effusion. She has had a pacemaker placed since that time and is on 3 anticoagulants. PAST MEDICAL HISTORY: Last admission ____ nephrotic range proteinuria with 14 grams protein, did not tolerate lisinopril because of her nonfunctional right kidney and is on current meds for blood pressure and peripheral arterial disease. ALLERGIES: Listed to multiple drugs listed per the chart. SOCIAL HISTORY: Nonsmoker, , lives with her son. Social situation is relatively chaotic. Nondrinker. FAMILY HISTORY: Unremarkable. REVIEW OF SYSTEMS: No other complaints. Denies hemoptysis, fever, chills or other pulmonary symptoms. OBJECTIVE: ENT: All within normal limits, mild pallor. NECK: No bruits, nodes or masses. LUNGS: Decreased breath sounds with some substantial ____ in the left side posteriorly. CARDIOVASCULAR: Regular rate. No irregular beat or murmur. ABDOMEN: Soft, benign and nontender. EXTREMITIES: Left BKA amputation. The right foot has poor pulses, 2+ clubbing of fingers, nail beds are pale. NEUROLOGIC: Physiologic. ASSESSMENT: Persistent and increasing left pleural effusion. Diagnostic possibilities would be hemorrhagic secondary to recent pacemaker placement, exacerbated by 3 anticoagulants that she takes. She did not have any effusion [address] scan shows no mass effect. Seems unlikely this is related to nephrotic syndrome as it is strictly unilateral. It do not respond to diuretic therapy. PLAN: Diagnostic thoracentesis after we can withhold her anticoagulants, Pulmonary consultation. CHRISTINA ROSENBAUM MD DR: AVNI/concetta JOB#: [id number] / [id number]
[2017-01-29] MEDS: OMEGA-3 FATTY ACIDS/FISH OIL 1,000 MG CAPSULE. PO SCH (09:47)
[2017-01-29] MEDS: ISOSORBIDE MONONITRATE ER 30 MG TAB.ER.24H PO SCH (09:48)
[2017-01-29] MEDS: LABETALOL HCL 200 MG TABLET PO SCH ×2 (09:48→21:03)
[2017-01-29] MEDS: CHOLECALCIFEROL (VITAMIN D3) 1,000 UNIT TABLET PO SCH (09:48)
[2017-01-29] MEDS: amLODIPine BESYLATE 5 MG TABLET PO SCH (09:48)
[2017-01-29] MEDS: MAGNESIUM OXIDE 400 MG TABLET PO SCH ×2 (09:49→21:03)
[2017-01-29] MEDS: ASCORBIC ACID 500 MG TABLET PO SCH (09:49)
[2017-01-29] MEDS: POTASSIUM CHLORIDE 10 MEQ TABLET.ER. PO SCH ×3 (09:49→17:31)
[2017-01-29] MEDS: FUROSEMIDE 20 MG TABLET PO SCH (09:49)
[2017-01-29] MEDS: AMIODARONE HCL 200 MG TABLET. PO SCH (09:49)
[2017-01-29] MEDS: CYANOCOBALAMIN (VITAMIN B-12) 1,000 MCG TABLET. PO SCH (09:49)
[2017-01-29] MEDS ORDERED: LIDOCAINE 1% / SOD BICARB 8.4% 20 ML VIAL. IJ ONE ×2 (13:57→14:30)
--- NOTE | 2017-01-29 14:10 | PDOC1 ---
IR Pre-Procedure H&P H&P Update No significant change from Dr. Pritchard admit H&P done 01/29/17. LUIS A SINGH MD Jan 29, 2017 14:10
--- NOTE | 2017-01-29 14:52 | PDOC ---
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
--- NOTE | 2017-01-29 14:58 | RAD ---
PROCEDURE: Ultrasound guided left thoracentesis. The procedure, risks, and complications, to include bleeding, infection and pneumothorax potentially requiring chest tube placement were explained to the patient and they understood and wished to proceed. Consent form signed. The left posterior chest was prepped and draped using maximal sterile technique and 1% Xylocaine used for local anesthesia. Ultrasound evaluation showed moderate sized pleural effusion. Under ultrasound guidance, a 5 Lao Yueh needle was inserted into the fluid and approximately 1300 of thin, straw-colored fluid was removed and sent to lab for evaluation]. Sedation: None Complications: None, chest x-ray pending The patient tolerated the procedure well and returned to the floor in a stable condition. IMPRESSION: Ultrasound-guided left thoracentesis.
--- NOTE | 2017-01-29 16:14 | RAD ---
Portable chest, 01/29/2017: History: Postthoracentesis evaluation Comparison is made to yesterday's study. A left-sided transvenous pacemaker is again noted. There has been decrease in volume of the left pleural effusion status post thoracentesis. There is a small amount of residual pleural fluid with moderate underlying left basilar atelectasis/infiltrate. There is no evidence of pneumothorax. The right chest remains clear. The heart size is unchanged. The pulmonary vascularity is normal. IMPRESSION: 1. Small residual left pleural effusion with mild to moderate left basilar atelectasis/infiltrate. 2. No new abnormality is detected.
--- NOTE | 2017-01-29 20:20 | PDOC ---
PULMONARY PROGRESS NOTES Vitals Vital Signs Date Time Temp Pulse Resp B/P (MAP) Pulse Ox O2 Delivery O2 Flow Rate FiO2 01/29/17 19:00 97.9 75 20 168/62 (97) 98 Room Air 97.9 01/29/17 10:59 2.0 Labs Laboratory Tests Test 01/28/17 06:07 01/28/17 07:24 01/28/17 11:26 White Blood Count 9.7 x10^3/uL (4.0-11.0) Red Blood Count 3.33 x10^6/uL (3.50-5.40) Hemoglobin 9.4 g/dL (12.0-15.5) Hematocrit 26.9 % (36.0-47.0) Mean Corpuscular Volume 81 fL (79-100) Mean Corpuscular Hemoglobin 28 pg (25-35) Mean Corpuscular Hemoglobin Concent 35 g/dL (31-37) Red Cell Distribution Width 16.4 % (11.5-14.5) Platelet Count 417 x10^3/uL (140-400) Neutrophils (%) (Auto) 67 % (31-73) Lymphocytes (%) (Auto) 19 % (24-48) Monocytes (%) (Auto) 9 % (0-9) Eosinophils (%) (Auto) 4 % (0-3) Basophils (%) (Auto) 1 % (0-3) Neutrophils # (Auto) 6.6 x10^3uL (1.8-7.7) Lymphocytes # (Auto) 1.8 x10^3/uL (1.0-4.8) Monocytes # (Auto) 0.9 x10^3/uL (0.0-1.1) Eosinophils # (Auto) 0.4 x10^3/uL (0.0-0.7) Basophils # (Auto) 0.1 x10^3/uL (0.0-0.2) Prothrombin Time 14.7 SEC (11.7-14.0) Prothromb Time International Ratio 1.2 (0.8-1.1) Sodium Level 137 mmol/L (136-145) Potassium Level 3.5 mmol/L (3.5-5.1) Chloride Level 102 mmol/L (98-107) Carbon Dioxide Level 28 mmol/L (21-32) Anion Gap 7 (6-14) Blood Urea Nitrogen 22 mg/dL (7-20) Creatinine 1.8 mg/dL (0.6-1.0) Estimated GFR (Cockcroft-Gault) 27.8 BUN/Creatinine Ratio 12 (6-20) Glucose Level 151 mg/dL (70-99) Calcium Level 8.9 mg/dL (8.5-10.1) Magnesium Level 1.8 mg/dL (1.8-2.4) Total Bilirubin 0.4 mg/dL (0.2-1.0) Aspartate Amino Transf (AST/SGOT) 15 U/L (15-37) Alanine Aminotransferase (ALT/SGPT) 17 U/L (14-59) Alkaline Phosphatase 88 U/L (46-116) Troponin I Quantitative 0.024 ng/mL (0.000-0.055) ML-Hdx-D-Type Natriuretic Peptide 3101 pg/mL (0-124) Total Protein 6.2 g/dL (6.4-8.2) Albumin 2.0 g/dL (3.4-5.0) Albumin/Globulin Ratio 0.5 (1.0-1.7) Lipase 137 U/L (73-393) Urine Collection Type Void Urine Color Yellow Urine Clarity Clear Urine pH 7.0 Urine Specific [place] 1.020 Urine Protein >=300 mg/dL (NEG-TRACE) Urine Glucose (UA) 100 mg/dL (NEG) Urine Ketones (Stick) Negative mg/dL (NEG) Urine Blood Trace (NEG) Urine Nitrite Negative (NEG) Urine Bilirubin Negative (NEG) Urine Urobilinogen Dipstick 0.2 mg/dL (0.2 mg/dL) Urine Leukocyte Esterase Trace (NEG) Urine RBC 1-2 /HPF (0-2) Urine WBC 5-10 /HPF (0-4) Urine Squamous Epithelial Cells Few /LPF Urine Bacteria Few /HPF (0-FEW) Urine Mucus Mod /LPF Glucose (Fingerstick) 141 mg/dL (70-99) Medications Active Scripts Medications Dose Route/Sig Max Daily Dose Days Date Category Lasix (Furosemide) 20 Mg Tablet 1 Tab PO DAILY 01/28/17 Reported Magnesium (Magnesium Oxide) 400 Mg Capsule 1 Cap PO DAILY 12/22/16 Reported Labetalol Hcl 200 Mg Tablet 1 Tab PO BID 12/22/16 Reported Potassium Chloride 10 Meq Capsule.er 10 Meq PO TID 12/22/16 Reported Eliquis (Apixaban) 5 Mg Tablet 5 Mg PO [id number] 12/19/16 Reported Amiodarone Hcl 200 Mg Tablet 1 Tab PO DAILY 12/15/16 Rx Amlodipine Besylate 5 Mg Tablet 10 Mg PO DAILY 30 12/15/16 Rx Vitamin B12 (Cyanocobalamin (Vitamin B-12)) 5,000 Mcg Tab.rapdis 5,000 Mcg PO DAILY 03/05/16 Reported Hydrocodone-Apap 5-325 (Hydrocodone Bit/Acetaminophen) 1 Each Tablet 1 Tab PO TID 01/05/16 Reported Centrum Silver Women Tablet (Multivits-Min/Iron/FA/Lutein) 1 Each Tablet 1 Each PO 01/05/16 Reported Fish Oil 1,000 Mg Softgel ([place]-3 Fatty Acids/Fish Oil) 1 Each Capsule 2 Each PO DAILY 09/16/14 Reported Paz-C 1,000 Mg Tablet (Ascorbate Calcium/Bioflavonoid) 1 Each Tablet 1 Each PO DAILY 09/16/14 Reported Atorvastatin Calcium 40 Mg Tablet 40 Mg PO HS 03/19/14 Reported Vitamin D3 (Cholecalciferol (Vitamin D3)) 1,000 Unit Capsule 2,000 Unit PO DAILY 08/13/13 Reported Aspirin 81 Mg Tab.chew 81 Mg PO DAILY 08/13/13 Reported Imdur (Isosorbide Mononitrate) 120 Mg Tab.er.24h 120 Mg PO DAILY 08/13/13 Reported Clopidogrel (Clopidogrel Bisulfate) 75 Mg Tablet 75 Mg PO DAILY 08/13/13 Reported Impression . DICTATED PLEURAL EFFUSION WILL AWAIT RESULTS TSH THANKS TOSHIA KELLY MD Jan 29, 2017 20:20
[2017-01-29] MEDS: ATORVASTATIN CALCIUM 40 MG TABLET. PO SCH (21:02)
[2017-01-29] MEDS ORDERED: LOPERAMIDE 2 MG CAPSULE PO ONE (23:00)
--- NOTE | 2017-01-30 00:41 | CONS ---
DATE OF CONSULTATION: 01/29/2017 ATTENDING PHYSICIAN: Dr. Andrew Pritchard. REASON FOR CONSULTATION: The patient is seen in pulmonary consultation at the request of Dr. Pritchard for pleural effusion. HISTORY OF PRESENT ILLNESS: The patient is a 71-year-old that presented with increasing shortness of breath. She was found to have an effusion. She was also having some difficulty with abdominal discomfort. The patient underwent a CT pelvis, abdomen and chest, which confirmed a moderate sized right-sided effusion, severe renal atrophy, some sigmoid diverticulosis, and cholelithiasis. The patient denied fever, chills or night sweats. She quit tobacco in . PAST MEDICAL HISTORY: Coronary artery disease with previous stent placement. Apparently she has had some difficulty with the thyroid. She states that she might have thyroid cancer. Otherwise, has a history of type 2 diabetes, hyperlipidemia, and hypertension. PAST SURGICAL HISTORY: Status post coronary artery bypass grafting, left AKA, right carpal tunnel release. ALLERGIES: PENICILLIN, BACITRACIN, CIPROFLOXIN, ERYTHROMYCIN, NEOMYCIN, NIACIN AND POLYMYXIN B. CURRENT MEDICATION: List was reviewed. Please see the MRAD. SOCIAL HISTORY: She quit tobacco and denies any alcohol intake. REVIEW OF SYSTEMS: As indicated above, otherwise, a 10-point system was reviewed and negative. PHYSICAL EXAMINATION: VITAL SIGNS: Stable. O2 saturation currently on 2 liters was greater than 92%. HEENT: Eyes, the sclerae were nonicteric. NECK: Jugular venous distention was not elevated. No lymphadenopathy. CHEST: Full expansion. LUNGS: Adequate airway flow, no wheezes. CARDIOVASCULAR: Regular rate and rhythm with S1, S2, no S3. ABDOMEN: Soft, nontender, nondistended. EXTREMITIES: No clubbing or cyanosis. Evidence of previous left BKA. LABORATORY DATA: Labs were reviewed. White count was normal. Hemoglobin and hematocrit were noted. INR was 1.2. Electrolytes were noted. BUN was elevated. Creatinine was elevated. Albumin was low. BNP was elevated. Glucose was high. CT and chest x-ray reviewed as indicated above. IMPRESSION: 1. Right-sided pleural effusion, etiology unclear at this time, doubt pneumonia with parapneumonic effusion. 2. Coronary artery disease. 3. Chronic kidney disease. 4. Left above-knee amputation. 5. Hypertension. 6. Questionable thyroid dysfunction. The patient states that she may have thyroid cancer. PLAN: 1. We will proceed with a diagnostic thoracentesis. 2. Check TSH. 3. We will send pleural fluid out for routine analysis. We will make further recommendations depending on the pleural fluid analysis results. I do appreciate the privilege in participating in the patient's care. TOSHIA KELLY MD DR: ZENOBIA/concetta JOB#: [id number] / [id number]
[2017-01-30 03:00] VITALS: BP 154/53
[2017-01-30] MEDS: ALPRAZolam 0.5 MG TABLET PO PRN ×2 (03:46→22:18)
[2017-01-30 07:00] VITALS: BP 149/58
--- NOTE | 2017-01-30 08:11 | PDOC ---
Provider Note Provider Note feels better after tap , better lung sounds L base0=- vss, labs same, pleural fluid studies pending CHRISTINA ROSENBAUM MD Jan 30, 2017 08:11
[2017-01-30] MEDS: AMIODARONE HCL 200 MG TABLET. PO SCH (08:36)
[2017-01-30] MEDS: MAGNESIUM OXIDE 400 MG TABLET PO SCH (08:36)
[2017-01-30] MEDS: ASCORBIC ACID 500 MG TABLET PO SCH (08:37)
[2017-01-30] MEDS: OMEGA-3 FATTY ACIDS/FISH OIL 1,000 MG CAPSULE. PO SCH (08:37)
[2017-01-30] MEDS: ISOSORBIDE MONONITRATE ER 30 MG TAB.ER.24H PO SCH (08:37)
[2017-01-30] MEDS: POTASSIUM CHLORIDE 10 MEQ TABLET.ER. PO SCH ×3 (08:37→17:27)
[2017-01-30] MEDS: FUROSEMIDE 20 MG TABLET PO SCH (08:37)
[2017-01-30] MEDS: CHOLECALCIFEROL (VITAMIN D3) 1,000 UNIT TABLET PO SCH (08:38)
[2017-01-30] MEDS: CYANOCOBALAMIN (VITAMIN B-12) 1,000 MCG TABLET. PO SCH (08:38)
[2017-01-30] MEDS: LABETALOL HCL 200 MG TABLET PO SCH ×2 (08:38→21:20)
[2017-01-30] MEDS: amLODIPine BESYLATE 5 MG TABLET PO SCH (08:40)
[2017-01-30] MEDS: HYDROcodone/APAP 5/325MG 1 TAB TABLET PO SCH ×3 (08:44→22:19)
[2017-01-30 11:00] VITALS: BP 145/60
--- NOTE | 2017-01-30 12:14 | PDOC ---
PULMONARY PROGRESS NOTES Subjective FEELS BETTER POST THORACENTESIS Vitals Vital Signs Date Time Temp Pulse Resp B/P (MAP) Pulse Ox O2 Delivery O2 Flow Rate FiO2 01/30/17 08:40 61 149/58 01/30/17 08:00 Room Air 2.0 01/30/17 07:00 97.8 18 94 97.8 General: Alert, No acute distress Lungs: Other (decrease left base) Cardiovascular: S1 Abdomen: Soft Neuro Exam: Alert Extremities: No Edema Skin: Warm Medications Active Scripts Medications Dose Route/Sig Max Daily Dose Days Date Category Lasix (Furosemide) 20 Mg Tablet 1 Tab PO DAILY 01/28/17 Reported Magnesium (Magnesium Oxide) 400 Mg Capsule 1 Cap PO DAILY 12/22/16 Reported Labetalol Hcl 200 Mg Tablet 1 Tab PO BID 12/22/16 Reported Potassium Chloride 10 Meq Capsule.er 10 Meq PO TID 12/22/16 Reported Eliquis (Apixaban) 5 Mg Tablet 5 Mg PO BID76 12/19/16 Reported Amiodarone Hcl 200 Mg Tablet 1 Tab PO DAILY 12/15/16 Rx Amlodipine Besylate 5 Mg Tablet 10 Mg PO DAILY 30 12/15/16 Rx Vitamin B12 (Cyanocobalamin (Vitamin B-12)) 5,000 Mcg Tab.rapdis 5,000 Mcg PO DAILY 03/05/16 Reported Hydrocodone-Apap 5-325 (Hydrocodone Bit/Acetaminophen) 1 Each Tablet 1 Tab PO TID 01/05/16 Reported Centrum Silver Women Tablet (Multivits-Min/Iron/FA/Lutein) 1 Each Tablet 1 Each PO 01/05/16 Reported Fish Oil 1,000 Mg Softgel ([place]-3 Fatty Acids/Fish Oil) 1 Each Capsule 2 Each PO DAILY 09/16/14 Reported Paz-C 1,000 Mg Tablet (Ascorbate Calcium/Bioflavonoid) 1 Each Tablet 1 Each PO DAILY 09/16/14 Reported Atorvastatin Calcium 40 Mg Tablet 40 Mg PO HS 03/19/14 Reported Vitamin D3 (Cholecalciferol (Vitamin D3)) 1,000 Unit Capsule 2,000 Unit PO DAILY 08/13/13 Reported Aspirin 81 Mg Tab.chew 81 Mg PO DAILY 08/13/13 Reported Imdur (Isosorbide Mononitrate) 120 Mg Tab.er.24h 120 Mg PO DAILY 08/13/13 Reported Clopidogrel (Clopidogrel Bisulfate) 75 Mg Tablet 75 Mg PO DAILY 08/13/13 Reported Impression . 1. Left-sided pleural effusion, ? related to pacemaker placement. CXR in Nov prior to pacemaker had small effusion which slowly progressed in December. doubt pneumonia with parapneumonic effusion., ? malignancy 2. Coronary artery disease. 3. Chronic kidney disease. 4. Left above-knee amputation. 5. Hypertension. 6. Questionable thyroid dysfunction. The patient states that she may have thyroid cancer. Plan . 1. s/p thoracentesis. 1300 cc fluid removed. await results 2. Check TSH. 3. We will make further recommendations depending on the pleural fluid analysis results. 4. Monitor CXR for recurrence LIZ LIRA MD Jan 30, 2017 12:13
--- NOTE | 2017-01-30 13:56 | PATHOLOGY ---
CYTOPATHOLOGY REPORT CLINICAL HISTORY: Left pleural effusion. SPECIMEN(S) RECEIVED: A.Pleural fluid, Left FINAL DIAGNOSIS: Left pleural fluid, ThinPrep and cell block: - No malignant cells identified. - Occasional mesothelial cells identified within a background of many small lymphocytes. (JPM:kim; 01/30/2017) PATHOLOGIST: Quentin Mcclellan M.D. REPORT ELECTRONICALLY SIGNED BY: Quentin Mcclellan M.D. DATE/TIME: 01/30/2017 13:43 GROSS PATHOLOGY: A. Pleural fluid, Left: The specimen is submitted unfixed, labeled "Debbie Uribe". Received by the Cytology Department is 35 mL of reddish orange fluid. One ThinPrep slide and a formalin fixed cell block were prepared. (clt 01.29.2017) DYNAMOMETER TESTER ENGINE(S): TYREE Alex(ASCP) INITIAL CPT CODE(S): A; 53591, 77224 Professional services performed [place] [address] Technical services performed by [facility] at [address] [place] [address], [address], [place] [address]. PATIENT: DEBBIE URIBE /AGE: 4 1945 (Age: 71) SEX: F PATIENT #: [id number] ALT CASE #: SPECIMEN COLLECTION DATE: 01/29/2017 SPECIMEN RECEIVED DATE: 01/29/[address] [facility] [address] [place] [address], [address] [place] [address] PHONE: [phone] DIRECTOR: Gaurav Parker M.D. * * * END OF REPORT * * *
[2017-01-30 15:00] VITALS: BP 104/50
[2017-01-30 19:00] VITALS: BP 111/48
[2017-01-30] MEDS: ATORVASTATIN CALCIUM 40 MG TABLET. PO SCH (21:18)
[2017-01-30 23:00] VITALS: BP 153/57
[2017-01-31 03:00] VITALS: BP 102/45
[2017-01-31 07:00] VITALS: BP 147/58
[2017-01-31] MEDS: LABETALOL HCL 200 MG TABLET PO SCH ×2 (08:45→22:05)
[2017-01-31] MEDS: AMIODARONE HCL 200 MG TABLET. PO SCH (08:45)
[2017-01-31] MEDS: POTASSIUM CHLORIDE 10 MEQ TABLET.ER. PO SCH ×3 (08:45→17:46)
[2017-01-31] MEDS: OMEGA-3 FATTY ACIDS/FISH OIL 1,000 MG CAPSULE. PO SCH (08:45)
[2017-01-31] MEDS: CYANOCOBALAMIN (VITAMIN B-12) 1,000 MCG TABLET. PO SCH (08:45)
[2017-01-31] MEDS: ASCORBIC ACID 500 MG TABLET PO SCH (08:45)
[2017-01-31] MEDS: CHOLECALCIFEROL (VITAMIN D3) 1,000 UNIT TABLET PO SCH (08:46)
[2017-01-31] MEDS: ISOSORBIDE MONONITRATE ER 30 MG TAB.ER.24H PO SCH (08:46)
[2017-01-31] MEDS: FUROSEMIDE 20 MG TABLET PO SCH (08:46)
[2017-01-31] MEDS: amLODIPine BESYLATE 5 MG TABLET PO SCH (08:46)
[2017-01-31] MEDS: ASPIRIN ENTERIC COATED 81 MG TABLET.DR. PO SCH (08:46)
[2017-01-31] MEDS: CLOPIDOGREL BISULFATE 75 MG TABLET PO SCH (08:47)
[2017-01-31] MEDS: HYDROcodone/APAP 5/325MG 1 TAB TABLET PO SCH ×3 (09:00→18:35)
[2017-01-31 09:19] LABS: HEMATOCRIT 29.9 % (36.0-47.0); HEMOGLOBIN 9.9 g/dL (12.0-15.5); RED BLOOD COUNT 3.64 x10^6/uL (3.50-5.40); RED CELL DISTRIBUTION WIDTH 15.9 % (11.5-14.5); WHITE BLOOD COUNT 9.8 x10^3/uL (4.0-11.0)
[2017-01-31 09:26] LABS: CALCIUM 8.7 mg/dL (8.5-10.1); CREATININE 1.7 mg/dL (0.6-1.0); GFR 29.7; POTASSIUM 3.7 mmol/L (3.5-5.1)
[2017-01-31 10:55] VITALS: BP 136/58
--- NOTE | 2017-01-31 12:06 | PDOC ---
PULMONARY PROGRESS NOTES Subjective FEELS BETTER POST THORACENTESIS Vitals Vital Signs Date Time Temp Pulse Resp B/P (MAP) Pulse Ox O2 Delivery O2 Flow Rate FiO2 01/31/17 10:55 97.9 60 18 136/58 (84) 94 Room Air 97.9 01/31/17 08:00 2.0 General: Alert, No acute distress Lungs: Other (decrease left base) Cardiovascular: S1 Abdomen: Soft Neuro Exam: Alert Extremities: No Edema Skin: Warm Labs Laboratory Tests Test 01/29/17 14:20 01/31/17 08:55 Body Fluid Total Protein 2.6 g/dL (.) Body Fluid Lactate Dehydrogenase 92 IU/L (.) White Blood Count 9.8 x10^3/uL (4.0-11.0) Red Blood Count 3.64 x10^6/uL (3.50-5.40) Hemoglobin 9.9 g/dL (12.0-15.5) Hematocrit 29.9 % (36.0-47.0) Mean Corpuscular Volume 82 fL (79-100) Mean Corpuscular Hemoglobin 27 pg (25-35) Mean Corpuscular Hemoglobin Concent 33 g/dL (31-37) Red Cell Distribution Width 15.9 % (11.5-14.5) Platelet Count 418 x10^3/uL (140-400) Sodium Level 140 mmol/L (136-145) Potassium Level 3.7 mmol/L (3.5-5.1) Chloride Level 105 mmol/L (98-107) Carbon Dioxide Level 29 mmol/L (21-32) Anion Gap 6 (6-14) Blood Urea Nitrogen 14 mg/dL (7-20) Creatinine 1.7 mg/dL (0.6-1.0) Estimated GFR (Cockcroft-Gault) 29.7 Glucose Level 184 mg/dL (70-99) Calcium Level 8.7 mg/dL (8.5-10.1) Laboratory Tests Test 01/31/17 08:55 White Blood Count 9.8 x10^3/uL (4.0-11.0) Red Blood Count 3.64 x10^6/uL (3.50-5.40) Hemoglobin 9.9 g/dL (12.0-15.5) Hematocrit 29.9 % (36.0-47.0) Mean Corpuscular Volume 82 fL (79-100) Mean Corpuscular Hemoglobin 27 pg (25-35) Mean Corpuscular Hemoglobin Concent 33 g/dL (31-37) Red Cell Distribution Width 15.9 % (11.5-14.5) Platelet Count 418 x10^3/uL (140-400) Sodium Level 140 mmol/L (136-145) Potassium Level 3.7 mmol/L (3.5-5.1) Chloride Level 105 mmol/L (98-107) Carbon Dioxide Level 29 mmol/L (21-32) Anion Gap 6 (6-14) Blood Urea Nitrogen 14 mg/dL (7-20) Creatinine 1.7 mg/dL (0.6-1.0) Estimated GFR (Cockcroft-Gault) 29.7 Glucose Level 184 mg/dL (70-99) Calcium Level 8.7 mg/dL (8.5-10.1) Medications Active Scripts Medications Dose Route/Sig Max Daily Dose Days Date Category Lasix (Furosemide) 20 Mg Tablet 1 Tab PO DAILY 01/28/17 Reported Magnesium (Magnesium Oxide) 400 Mg Capsule 1 Cap PO DAILY 12/22/16 Reported Labetalol Hcl 200 Mg Tablet 1 Tab PO BID 12/22/16 Reported Potassium Chloride 10 Meq Capsule.er 10 Meq PO TID 12/22/16 Reported Eliquis (Apixaban) 5 Mg Tablet 5 Mg PO BID76 12/19/16 Reported Amiodarone Hcl 200 Mg Tablet 1 Tab PO DAILY 12/15/16 Rx Amlodipine Besylate 5 Mg Tablet 10 Mg PO DAILY 30 12/15/16 Rx Vitamin B12 (Cyanocobalamin (Vitamin B-12)) 5,000 Mcg Tab.rapdis 5,000 Mcg PO DAILY 03/05/16 Reported Hydrocodone-Apap 5-325 (Hydrocodone Bit/Acetaminophen) 1 Each Tablet 1 Tab PO TID 01/05/16 Reported Centrum Silver Women Tablet (Multivits-Min/Iron/FA/Lutein) 1 Each Tablet 1 Each PO 01/05/16 Reported Fish Oil 1,000 Mg Softgel ([place]-3 Fatty Acids/Fish Oil) 1 Each Capsule 2 Each PO DAILY 09/16/14 Reported Paz-C 1,000 Mg Tablet (Ascorbate Calcium/Bioflavonoid) 1 Each Tablet 1 Each PO DAILY 09/16/14 Reported Atorvastatin Calcium 40 Mg Tablet 40 Mg PO HS 03/19/14 Reported Vitamin D3 (Cholecalciferol (Vitamin D3)) 1,000 Unit Capsule 2,000 Unit PO DAILY 08/13/13 Reported Aspirin 81 Mg Tab.chew 81 Mg PO DAILY 08/13/13 Reported Imdur (Isosorbide Mononitrate) 120 Mg Tab.er.24h 120 Mg PO DAILY 08/13/13 Reported Clopidogrel (Clopidogrel Bisulfate) 75 Mg Tablet 75 Mg PO DAILY 08/13/13 Reported Impression . 1. Left-sided pleural effusion, ? related to pacemaker placement. CXR in Nov prior to pacemaker had small effusion LLL, which slowly progressed in December. doubt pneumonia with parapneumonic effusion., ? malignancy/ less likely hemothorax 2. Coronary artery disease. 3. Chronic kidney disease. 4. Left above-knee amputation. 5. Hypertension. 6. Questionable thyroid dysfunction. The patient states that she may have thyroid cancer. Plan . 1. s/p thoracentesis. 1300 cc fluid removed. transudate, await cytology 2. f/u CXR today 3. We will make further recommendations depending on the pleural fluid analysis results once all available 4. obtain pro-calcitonin, If high, add antibiotic LIZ LIRA MD Jan 31, 2017 12:06
--- NOTE | 2017-01-31 14:30 | RAD ---
Chest, 2 views, 01/31/2017: History: Pleural effusion Comparison is made to a study from 01/29/2017. Sternal wires are present. A left sided transvenous pacemaker remains in place with 2 leads extending into the right heart. The heart is at the upper limits of normal in size. There is calcific plaquing of the aorta. There are moderate ongoing infiltrates in the left lower chest. There is adjacent pleural thickening inferolaterally similar to that seen on the previous exam. Its position suggests that it may be partially loculated. The right chest remains clear. No right-sided pleural fluid is evident. IMPRESSION: Unchanged left pleural effusion which may be partially loculated laterally, with persistent underlying left basilar infiltrates suggesting pneumonia.
[2017-01-31 15:00] VITALS: BP 145/58
[2017-01-31 19:00] VITALS: BP 147/62
[2017-01-31] MEDS: ATORVASTATIN CALCIUM 40 MG TABLET. PO SCH (22:03)
[2017-01-31 23:00] VITALS: BP 151/55
[2017-01-31] MEDS: ALPRAZolam 0.5 MG TABLET PO PRN (23:20)
[2017-02-01 03:00] VITALS: BP 141/48
[2017-02-01 07:00] VITALS: BP 149/50
--- NOTE | 2017-02-01 08:14 | DISCH ---
DISCHARGE INSTRUCTIONS Condition on Discharge Condition on Discharge: Stable Activity After Discharge Activity Instructions for Disc: No restrictions Diet after Discharge Diet after Discharge: Low Sodium 4 gm Follow-Up Follow up with: CHRISTINA Kaur MD Feb 01, 2017 08:14
--- NOTE | 2017-02-01 08:19 | PDOC ---
Provider Note Provider Note [id number] CHRISTINA ROSENBAUM MD Feb 01, 2017 08:19
[2017-02-01] MEDS: ISOSORBIDE MONONITRATE ER 30 MG TAB.ER.24H PO SCH (08:51)
[2017-02-01] MEDS: CYANOCOBALAMIN (VITAMIN B-12) 1,000 MCG TABLET. PO SCH (08:51)
[2017-02-01] MEDS: ASCORBIC ACID 500 MG TABLET PO SCH (08:52)
[2017-02-01] MEDS: LABETALOL HCL 200 MG TABLET PO SCH (08:52)
[2017-02-01] MEDS: OMEGA-3 FATTY ACIDS/FISH OIL 1,000 MG CAPSULE. PO SCH (08:52)
[2017-02-01] MEDS: FUROSEMIDE 20 MG TABLET PO SCH (08:52)
[2017-02-01] MEDS: CLOPIDOGREL BISULFATE 75 MG TABLET PO SCH (08:52)
[2017-02-01] MEDS: amLODIPine BESYLATE 5 MG TABLET PO SCH (08:52)
[2017-02-01] MEDS: CHOLECALCIFEROL (VITAMIN D3) 1,000 UNIT TABLET PO SCH (08:53)
[2017-02-01] MEDS: AMIODARONE HCL 200 MG TABLET. PO SCH (08:53)
[2017-02-01] MEDS: POTASSIUM CHLORIDE 10 MEQ TABLET.ER. PO SCH ×2 (08:53→12:31)
[2017-02-01] MEDS: ASPIRIN ENTERIC COATED 81 MG TABLET.DR. PO SCH (08:53)
[2017-02-01] MEDS: HYDROcodone/APAP 5/325MG 1 TAB TABLET PO SCH ×2 (08:54→14:00)
[2017-02-01 11:00] VITALS: BP 134/59
--- NOTE | 2017-02-01 12:29 | PDOC ---
PULMONARY PROGRESS NOTES Subjective FEELS BETTER POST THORACENTESIS Vitals Vital Signs Date Time Temp Pulse Resp B/P (MAP) Pulse Ox O2 Delivery O2 Flow Rate FiO2 02/01/17 11:00 97.9 61 18 134/59 (84) 92 Room Air 97.9 02/01/17 08:00 2.0 General: Alert, No acute distress Lungs: Other (decrease left base) Cardiovascular: S1 Abdomen: Soft Neuro Exam: Alert Extremities: No Edema Skin: Warm Labs Laboratory Tests Test 01/31/17 08:55 White Blood Count 9.8 x10^3/uL (4.0-11.0) Red Blood Count 3.64 x10^6/uL (3.50-5.40) Hemoglobin 9.9 g/dL (12.0-15.5) Hematocrit 29.9 % (36.0-47.0) Mean Corpuscular Volume 82 fL (79-100) Mean Corpuscular Hemoglobin 27 pg (25-35) Mean Corpuscular Hemoglobin Concent 33 g/dL (31-37) Red Cell Distribution Width 15.9 % (11.5-14.5) Platelet Count 418 x10^3/uL (140-400) Sodium Level 140 mmol/L (136-145) Potassium Level 3.7 mmol/L (3.5-5.1) Chloride Level 105 mmol/L (98-107) Carbon Dioxide Level 29 mmol/L (21-32) Anion Gap 6 (6-14) Blood Urea Nitrogen 14 mg/dL (7-20) Creatinine 1.7 mg/dL (0.6-1.0) Estimated GFR (Cockcroft-Gault) 29.7 Glucose Level 184 mg/dL (70-99) Calcium Level 8.7 mg/dL (8.5-10.1) Procalcitonin < 0.10 ng/mL (0.00-0.10) Medications Active Scripts Medications Dose Route/Sig Max Daily Dose Days Date Category Lasix (Furosemide) 20 Mg Tablet 1 Tab PO DAILY 01/28/17 Reported Magnesium (Magnesium Oxide) 400 Mg Capsule 1 Cap PO DAILY 12/22/16 Reported Labetalol Hcl 200 Mg Tablet 1 Tab PO BID 12/22/16 Reported Potassium Chloride 10 Meq Capsule.er 10 Meq PO TID 12/22/16 Reported Eliquis (Apixaban) 5 Mg Tablet 5 Mg PO BID76 12/19/16 Reported Amiodarone Hcl 200 Mg Tablet 1 Tab PO DAILY 12/15/16 Rx Amlodipine Besylate 5 Mg Tablet 10 Mg PO DAILY 30 12/15/16 Rx Vitamin B12 (Cyanocobalamin (Vitamin B-12)) 5,000 Mcg Tab.rapdis 5,000 Mcg PO DAILY 03/05/16 Reported Hydrocodone-Apap 5-325 (Hydrocodone Bit/Acetaminophen) 1 Each Tablet 1 Tab PO TID 01/05/16 Reported Centrum Silver Women Tablet (Multivits-Min/Iron/FA/Lutein) 1 Each Tablet 1 Each PO 01/05/16 Reported Fish Oil 1,000 Mg Softgel ([place]-3 Fatty Acids/Fish Oil) 1 Each Capsule 2 Each PO DAILY 09/16/14 Reported Paz-C 1,000 Mg Tablet (Ascorbate Calcium/Bioflavonoid) 1 Each Tablet 1 Each PO DAILY 09/16/14 Reported Atorvastatin Calcium 40 Mg Tablet 40 Mg PO HS 03/19/14 Reported Vitamin D3 (Cholecalciferol (Vitamin D3)) 1,000 Unit Capsule 2,000 Unit PO DAILY 08/13/13 Reported Aspirin 81 Mg Tab.chew 81 Mg PO DAILY 08/13/13 Reported Imdur (Isosorbide Mononitrate) 120 Mg Tab.er.24h 120 Mg PO DAILY 08/13/13 Reported Clopidogrel (Clopidogrel Bisulfate) 75 Mg Tablet 75 Mg PO DAILY 08/13/13 Reported Impression . 1. Left-sided pleural effusion, ? related to pacemaker placement. CXR in Nov prior to pacemaker had small effusion LLL, which slowly progressed in December. ?pneumonia with parapneumonic effusion., ? malignancy/ less likely hemothorax (no bloody effusion) 2. Coronary artery disease. 3. Chronic kidney disease. 4. Left above-knee amputation. 5. Hypertension. 6. Questionable thyroid dysfunction. The patient states that she may have thyroid cancer. Plan . 1. s/p thoracentesis. 1300 cc fluid removed. transudate, Neg cytology 2. f/u CXR with unchanged left partially loculated effusion. 3. d/w patient. wants to go home. f/u cxr in 4-6 weeks and f/u with me. 4. pro-calcitonin normal, unlikely bacterial infection. will however add doxy for 7 days LIZ LIRA MD Feb 01, 2017 12:29
--- NOTE | 2017-02-01 15:28 | DS ---
DATE OF DISCHARGE: 02/01/2017 HOSPITAL SUMMARY: A 71-year-old white female came in with increasing shortness of breath, felt to be due to increasing left pleural effusion of unknown etiology. CBC showed hemoglobin of 9.4 which remained stable and normal white count. TSH was normal at 4.0. Procalcitonin was low. Chemistry profile normal and the creatinine was at better normal baseline of 1.7. Urine culture, culture of pleural fluid were both negative. Total protein and LDH of the fluid were transudative in nature. Cytology showed no malignant cells and only a few lymphocytes. She had 1300 mL of pleural fluid removed per Interventional Radiology without difficulty and she symptomatically was better and the chest x-ray did appear improved after procedure. She has been afebrile and is asymptomatic and as there is no clear etiology of the effusion, she can be discharged and followed as an outpatient. FINAL DIAGNOSES: 1. Transudative left pleural effusion, etiology undetermined. 2. Chronic kidney disease III. 3. Anemia of chronic disease. 4. Nephrotic syndrome, idiopathic. OPERATIONS AND PROCEDURES: Pleural fluid evacuation by thoracentesis. COMPLICATIONS: None. CONSULTATIONS: Dr. Foreman, Interventional Radiology. DISPOSITION: Continue all home meds including aspirin, Plavix and Eliquis for now. She takes amiodarone for prevention of atrial fibrillation, which perhaps may increase the risk of bleeding and as she had a pacemaker there may have been some left pleural space bleeding tube into the fluid. We will follow her chest x-ray in 1 week and await the results of AFB smear and culture which appeared to be unlikely to be related as pleural effusion was only about 2 months old. CHRISTINA ROSENBAUM MD DR: AVNI/concetta JOB#: [id number] / [id number]
[2017-02-06] MEDS ORDERED: RANI150T2 (13:38)
[2017-02-06] MEDS ORDERED: DOXY100C14 (16:36)
== END 2017-02-01 13:35 | disposition home or self-care (01) | DRG 187 ==
LOC: ER 06:00 → 5 NORTH 09:06
PROVIDERS: ADMIT Family Medicine; ATTEND Family Medicine
PROC: 0W9B3ZZ Drainage of Left Pleural Cavity, Percutaneous Approach (ICD-10-PCS; principal; 2017-01-28)
DX: J90 Pleural effusion, not elsewhere classified (principal); N04.9 Nephrotic syndrome with unspecified morphologic changes; E11.22 Type 2 diabetes mellitus with diabetic chronic kidney disease; D63.8 Anemia in other chronic diseases classified elsewhere; E44.1 Mild protein-calorie malnutrition; N18.3 Chronic kidney disease, stage 3 (moderate); Z89.612 Acquired absence of left leg above knee; I25.10 Atherosclerotic heart disease of native coronary artery without angina pectoris; E78.00 Pure hypercholesterolemia, unspecified; E78.5 Hyperlipidemia, unspecified; I73.9 Peripheral vascular disease, unspecified; K57.30 Diverticulosis of large intestine without perforation or abscess without bleeding; K80.20 Calculus of gallbladder without cholecystitis without obstruction; Z95.0 Presence of cardiac pacemaker; Z95.1 Presence of aortocoronary bypass graft; Z88.0 Allergy status to penicillin; Z88.8 Allergy status to other drugs, medicaments and biological substances; Z79.899 Other long term (current) drug therapy; Z89.512 Acquired absence of left leg below knee; Z95.5 Presence of coronary angioplasty implant and graft; Z88.1 Allergy status to other antibiotic agents; Z87.891 Personal history of nicotine dependence
CPT/HCPCS: 32555; 36415; 71010; 71020; 71250; 74176; 80048; 80053; 81001; 82962; 83615; 83690; 83735; 83880; 84145; 84157; 84443; 84484; 85025; 85027; 85610; 87015; 87071; 87075; 87086; 87116; 87205; 88112; 88305; 90686; 93005; 96361; 96374; 96375; J2405; J2765; J3010; J7030; 99285-25

== ENCOUNTER → 2017-02-19 | Outpatient (CLI) | payer MEDICARE, OTHER ==
[2017-02-07 14:46] VITALS: BP 106/53
[~2017-02-19] MED LIST changes: +DOXY100C14; +FURO-69 PO; +RANI150T2
--- NOTE | 2017-02-19 14:42 | RAD ---
Chest, 2 views, 02/19/2017: History: Pleural effusion, shortness of breath Comparison is made to a study from 01/31/2017. There has been a previous median sternotomy. A left-sided transvenous pacemaker remains in place with 2 leads extending into the right heart. The heart is now within normal limits in size. The pulmonary vascularity is normal. Left-sided pleural fluid has diminished. There is mild residual blunting of the left lateral costophrenic angle with mild underlying streaky left basilar atelectasis/infiltrate. The right lung is clear. The lungs are hyperexpanded. No new abnormality is detected. IMPRESSION: Resolving left pleural effusion with mild residual left basilar atelectasis/infiltrate.
--- NOTE | 2017-02-19 15:27 | RAD ---
Bilateral shoulders, 6 views, 02/19/2017: History: Shoulder pain On the right there is mild spurring at the glenohumeral and acromioclavicular joints. There is mild subacromial spurring. There are cystic and sclerotic changes at rotator cuff insertion sites on the greater tuberosity. There is mild widening of the right AC joint compared to the left which may be due to old ligamentous injury. There is a lesser degree of degenerative change on the left. No fracture or dislocation is identified on either side. IMPRESSION: 1. Mild to moderate degenerative change, right greater than left. 2. Mild widening of the right AC joint likely due to old ligamentous injury. 3. No acute bony abnormality is detected.
== END | disposition home or self-care (01) ==
LOC: RAD 13:58
PROVIDERS: ATTEND Family Medicine
DX: J94.8 Other specified pleural conditions (principal); M19.011 Primary osteoarthritis, right shoulder; M19.012 Primary osteoarthritis, left shoulder; Z95.0 Presence of cardiac pacemaker
CPT/HCPCS: 71020; 73030

== ENCOUNTER → 2017-03-18 | Outpatient (CLI) | payer MEDICARE, OTHER ==
[2017-02-07 14:46] VITALS: BP 106/53
--- NOTE | 2017-03-18 13:19 | KCIC ---
Bone mineral density exam History: Postmenopausal, diabetes, takes calcium supplement, screening Comparison: None Findings: Bone mineral density examination utilizing DEXA was performed. Right hip bone mineral density of 0.882 g/cm2 corresponds with a T score -0.5, Z score 1.0. The bone mineral density of the lumbar spine was 0.934 g/cm2 which corresponds with a T-score of -1.0, Z score 1.1. By World Congress on Osteoporosis criteria, a T score of 0 to-1 SD is considered to be within normal limits. A T score of -1 to -2.5 SD is considered osteopenia. A T score less than -2.5 SD is considered osteoporosis Impression: 1. Bone mineral density of the right hip is within normal limits. Bone mineral density of the lumbar spine is also considered within normal limits although borderline osteopenia. Electronically signed by: Roni Graves MD (03/18/2017 1:16 PM) [id number]
== END | disposition home or self-care (01) ==
LOC: KCIC DEXA 12:39
PROVIDERS: ATTEND Family Medicine
DX: Z13.820 Encounter for screening for osteoporosis (principal); E11.9 Type 2 diabetes mellitus without complications; Z78.0 Asymptomatic menopausal state
CPT/HCPCS: 77080

== ENCOUNTER 2017-03-22 10:48 | Inpatient (IN) | payer MEDICARE, OTHER ==
[~2017-03-22] VITALS: Ht 170.2 cm; Wt 86.7 kg
--- NOTE | 2017-03-22 11:57 | EKG ---
[facility] [address] [place] [address] Test Date: 2017-03-22 Test Time: 11:03:20 Pat Name: MARISA RIOJAS Department: Room: Gender: F Medical Researcher: : 1945 Requested By: SHERYL PEREZ Order Number: [id number] Reading MD: Bhupendra Kemp MD Measurements Intervals [place] Rate: 73 P: 0 SC: 90 QRS: -36 QRSD: 138 T: 176 QT: 464 QTc: 516 Interpretive Statements SINUS RHYTHM RBBB Electronically Signed On 03-23-2017 11:07:53 FOOD SERVICE SPECIALIST by Bhupendra Kemp MD
--- NOTE | 2017-03-22 12:00 | PHYS DOC ---
Past Medical History Past Medical History: CAD, Diabetes-Type II, High Cholesterol, Heart Disease, Hypertension, Other Additional Past Medical Histor: Carpal Tunnel Past Surgical History: Coronary Bypass Surgery, Pacemaker, Other Additional Past Surgical Histo: LEFT AKA; right carpal tunnel release Alcohol Use: None Drug Use: None Adult General Chief Complaint Chief Complaint: SHORTNESS OF BREATH HPI HPI Patient is a 71 year old female who presents with complaint of shortness of breath. Patient states her symptoms started yesterday and have been progressively worsening. Patient has history of congestive heart failure, coronary artery disease, and extensive history of smoking. Patient states that she is having chest discomfort at this time, and she describes it as tightness. Patient denies any known fevers or productive cough. Patient does admit to dyspnea on exertion. Patient has not noticed any increasing swelling over the past few days. Patient's son states that the patient has had exposure to a family member who has had a viral upper respiratory infection. Patient has not taken any medications to help with symptoms at this time. Review of Systems Review of Systems Constitutional: Denies fever or chills [] Eyes: Denies change in visual acuity, redness, or eye pain [] HENT: Denies nasal congestion or sore throat [] Respiratory: Shortness of breath[] Cardiovascular: Chest pain, dyspnea on exertion[] GI: Denies abdominal pain, nausea, vomiting, bloody stools or diarrhea [] : Denies dysuria or hematuria [] Musculoskeletal: Denies back pain or joint pain [] Integument: Denies rash or skin lesions [] Neurologic: Denies headache, focal weakness or sensory changes [] All other systems were reviewed and found to be within normal limits, except as documented in this note. Allergies Allergies Allergies Coded Allergies Type Severity Reaction Last Updated Verified Penicillins Allergy Intermediate 01/05/16 Yes bacitracin Allergy Intermediate 01/05/16 Yes ciprofloxacin Allergy Intermediate 11/02/13 Yes erythromycin base Allergy Intermediate 01/05/16 Yes neomycin Allergy Intermediate 01/05/16 Yes niacin Allergy Intermediate 04/14/14 Yes polymyxin B Allergy Intermediate 11/02/13 Yes Physical Exam Physical Exam Constitutional: Alert, afebrile, appears in moderate respiratory distress. [] HENT: Normocephalic, atraumatic, bilateral external ears normal, oropharynx moist, no oral exudates, nose normal. [] Eyes: PERRLA, EOMI, conjunctiva normal, no discharge. [] Neck: Normal range of motion, no tenderness, supple, no stridor. [] Cardiovascular:Heart rate regular rhythm, no murmur [] Lungs & Thorax: Mildly restricted air movement bilaterally, no expiratory wheezes, fine rales in the bilateral lung bases[] Abdomen: Bowel sounds normal, soft, no tenderness, no masses, no pulsatile masses. [] Skin: Warm, dry, no erythema, no rash. [] Back: No tenderness, no CVA tenderness. [] Extremities: Left AKA, no cyanosis, no clubbing, ROM intact, 1+ pitting edema in the right lower extremity. [] Neurologic: Alert and oriented X 3, normal motor function, normal sensory function, no focal deficits noted. [] Current Patient Data Vital Signs Vital Signs Date Time Temp Pulse Resp B/P (MAP) Pulse Ox O2 Delivery O2 Flow Rate FiO2 03/22/17 11:57 66 19 187/79 (115) 98 Room Air 03/22/17 10:50 98.3 98.3 Lab Values Laboratory Tests Test 03/22/17 11:07 03/22/17 12:20 White Blood Count 9.4 x10^3/uL (4.0-11.0) Red Blood Count 3.91 x10^6/uL (3.50-5.40) Hemoglobin 10.9 g/dL (12.0-15.5) L Hematocrit 31.2 % (36.0-47.0) L Mean Corpuscular Volume 80 fL (79-100) Mean Corpuscular Hemoglobin 28 pg (25-35) Mean Corpuscular Hemoglobin Concent 35 g/dL (31-37) Red Cell Distribution Width 16.7 % (11.5-14.5) H Platelet Count 384 x10^3/uL (140-400) Neutrophils (%) (Auto) 69 % (31-73) Lymphocytes (%) (Auto) 19 % (24-48) L Monocytes (%) (Auto) 9 % (0-9) Eosinophils (%) (Auto) 3 % (0-3) Basophils (%) (Auto) 1 % (0-3) Neutrophils # (Auto) 6.5 x10^3uL (1.8-7.7) Lymphocytes # (Auto) 1.7 x10^3/uL (1.0-4.8) Monocytes # (Auto) 0.8 x10^3/uL (0.0-1.1) Eosinophils # (Auto) 0.3 x10^3/uL (0.0-0.7) Basophils # (Auto) 0.1 x10^3/uL (0.0-0.2) Sodium Level 136 mmol/L (136-145) Potassium Level 2.7 mmol/L (3.5-5.1) *L Chloride Level 100 mmol/L (98-107) Carbon Dioxide Level 33 mmol/L (21-32) H Anion Gap 3 (6-14) L Blood Urea Nitrogen 20 mg/dL (7-20) Creatinine 2.2 mg/dL (0.6-1.0) H Estimated GFR (Cockcroft-Gault) 22.1 BUN/Creatinine Ratio 9 (6-20) Glucose Level 194 mg/dL (70-99) H Calcium Level 8.6 mg/dL (8.5-10.1) Total Bilirubin 0.3 mg/dL (0.2-1.0) Aspartate Amino Transferase (AST) 21 U/L (15-37) Alanine Aminotransferase (ALT) 17 U/L (14-59) Alkaline Phosphatase 115 U/L (46-116) Creatine Kinase 105 U/L (26-192) Creatine Kinase MB (Mass) 1.7 ng/mL (0.0-3.6) Creatine Kinase MB Relative Index 1.6 % (0-4) Troponin I Quantitative 0.055 ng/mL (0.000-0.055) NF-Alj-J-Type Natriuretic Peptide 4471 pg/mL (0-124) H Total Protein 5.7 g/dL (6.4-8.2) L Albumin 1.3 g/dL (3.4-5.0) L Albumin/Globulin Ratio 0.3 (1.0-1.7) L Influenza Type A Antigen Negative (NEGATIVE) Influenza Type B Antigen Negative (NEGATIVE) Laboratory Tests 03/22/17 11:07 Laboratory Tests 03/22/17 11:07 EKG EKG Interpreted by me: Heart rate 73, sinus rhythm, leftward axis, incomplete right bundle branch block, no acute ST/T-wave abnormalities present[] Radiology/Procedures Radiology/Procedures [facility] [address] [place] [address] IMAGING REPORT Signed PATIENT: MARISA RIOJAS ACCOUNT: [id number] : 1945 LOCATION: ER AGE: 71 SEX: F EXAM STATUS: REG ER ORD. PHYSICIAN: SHERYL PEREZ MD REASON: shortness of breath PROCEDURE: PORTABLE CHEST 1V Single view of the Chest 03/22/2017 1:53 PM Indication: shortness of breath Comparison: Chest radiograph February 19, 2017 Findings: Prior median sternotomy noted. Dual-lead pacemaker from a left subclavian approach is similar. No pneumothorax or pleural effusion is identified. No focal infiltrates are seen. Calcified granuloma left lower lobe noted. No acute osseous changes. Impression: No evidence of acute cardiopulmonary process or acute change from prior study DICTATED and SIGNED BY: JAYLENE MORILLO MD DATE: 03/22/171212 CC: SHERYL PEREZ MD; CHRISTINA ROSENBAUM MD ~ [] Course & Med Decision Making Course & Med Decision Making Pertinent Labs and Imaging studies reviewed. (See chart for details) Patient given oral potassium in the emergency department for replacement. Patient has an elevated BNP level and given patient's dyspnea on exertion and lower show any edema, the patient is likely expressing symptoms of CHF exacerbation. Due to severity of her exertional dyspnea, the patient will be admitted to the hospital for further treatment. Patient admitted to Dr. Rosenbaum. A consult was placed to Dr. Perales of cardiology to follow with patient in hospital. Dragon Disclaimer Dragon Disclaimer This electronic medical record was generated, in whole or in part, using a voice recognition dictation system. Departure Departure Impression: Primary Impression: Acute on chronic congestive heart failure Additional Impressions: Hypokalemia Severe protein-calorie malnutrition Chronic renal disease, stage IV Disposition: ADMITTED INPATIENT Admitting Physician: Christina Rosenbaum Condition: STABLE Referrals: CHRISTINA ROSENBAUM MD (PCP) Problem Qualifiers Primary Impression: Acute on chronic congestive heart failure Congestive heart failure type: unspecified congestive heart failure type Qualified Codes: I50.9 - Heart failure, unspecified SHERYL PEREZ MD Mar 22, 2017 12:00
--- NOTE | 2017-03-22 12:18 | RAD ---
Single view of the Chest 03/22/2017 1:53 PM Indication: shortness of breath Comparison: Chest radiograph February 19, 2017 Findings: Prior median sternotomy noted. Dual-lead pacemaker from a left subclavian approach is similar. No pneumothorax or pleural effusion is identified. No focal infiltrates are seen. Calcified granuloma left lower lobe noted. No acute osseous changes. Impression: No evidence of acute cardiopulmonary process or acute change from prior study
[2017-03-22 12:23] LABS: ALBUMIN 1.3 g/dL (3.4-5.0); ALBUMIN/GLOBULIN RATIO 0.3 (1.0-1.7); CALCIUM 8.6 mg/dL (8.5-10.1); CREATININE 2.2 mg/dL (0.6-1.0); GFR 22.1; TOTAL BILIRUBIN 0.3 mg/dL (0.2-1.0); TOTAL PROTEIN 5.7 g/dL (6.4-8.2)
[2017-03-22 12:28] LABS: POTASSIUM 2.7 mmol/L (3.5-5.1)
[2017-03-22 12:30] LABS: BASO # 0.1 x10^3/uL (0.0-0.2); BASO % 1 % (0-3); EOS % 3 % (0-3); HEMATOCRIT 31.2 % (36.0-47.0); HEMOGLOBIN 10.9 g/dL (12.0-15.5); LYMPH # 1.7 x10^3/uL (1.0-4.8); LYMPH % 19 % (24-48); MEAN CORPUSCULAR HEMOGLOBIN 28 pg (25-35); MEAN CORPUSCULAR HGB CONC 35 g/dL (31-37); MEAN CORPUSCULAR VOLUME 80 fL (79-100); MONO % 9 % (0-9); NEUT % 69 % (31-73); PLATELET COUNT 384 x10^3/uL (140-400); RED BLOOD COUNT 3.91 x10^6/uL (3.50-5.40); RED CELL DISTRIBUTION WIDTH 16.7 % (11.5-14.5); WHITE BLOOD COUNT 9.4 x10^3/uL (4.0-11.0)
[2017-03-22 12:31] LABS: CKMB MASS 1.7 ng/mL (0.0-3.6)
[2017-03-22] MEDS ORDERED: POTASSIUM CHLORIDE 20 MEQ TABLET.ER. PO ONE (13:00)
[2017-03-22 13:02] LABS: OBC FLU VALID
[2017-03-22] MEDS ORDERED: ACETAMINOPHEN 325 MG TABLET. PO PRN (13:45)
[2017-03-22] MEDS ORDERED: ONDANSETRON PF 4 MG/2 ML VIAL. IV PRN (13:45)
[2017-03-22] MEDS ORDERED: fentaNYL PF VIAL 100 MCG/2 ML VIAL IV PRN (13:45)
[2017-03-22 14:49] VITALS: BP 175/70
[2017-03-22] MEDS ORDERED: hydrALAZINE 20 MG/ML VIAL. IVP PRN (15:30)
[2017-03-22] MEDS: FUROSEMIDE 20 MG TABLET PO SCH (15:48)
[2017-03-22] MEDS: CYANOCOBALAMIN (VITAMIN B-12) 1,000 MCG TABLET. PO SCH (16:10)
[2017-03-22] MEDS: ASPIRIN CHEWABLE 81 MG TABLET. PO SCH (16:11)
[2017-03-22] MEDS: amLODIPine BESYLATE 10 MG TABLET PO SCH (16:11)
[2017-03-22] MEDS: CHOLECALCIFEROL (VITAMIN D3) 1,000 UNIT TABLET PO SCH (16:11)
[2017-03-22] MEDS: OMEGA-3 FATTY ACIDS/FISH OIL 1,000 MG CAPSULE. PO SCH (16:11)
[2017-03-22] MEDS: MAGNESIUM OXIDE 400 MG TABLET PO SCH (16:11)
[2017-03-22] MEDS: CLOPIDOGREL BISULFATE 75 MG TABLET PO SCH (16:11)
[2017-03-22] MEDS: ISOSORBIDE MONONITRATE ER 30 MG TAB.ER.24H PO SCH (16:12)
[2017-03-22] MEDS: POTASSIUM CHLORIDE 10 MEQ TABLET.ER. PO SCH (16:13)
[2017-03-22] MEDS: AMIODARONE HCL 200 MG TABLET. PO SCH (16:13)
[2017-03-22] MEDS: APIXABAN 5 MG TABLET. PO SCH (18:00)
[2017-03-22 19:15] VITALS: BP 135/61
[2017-03-22] MEDS: ATORVASTATIN CALCIUM 40 MG TABLET. PO SCH (21:08)
[2017-03-22] MEDS: LABETALOL HCL 200 MG TABLET PO SCH (21:08)
[2017-03-22] MEDS: HYDROcodone/APAP 5/325MG 1 TAB TABLET PO SCH (21:08)
[2017-03-22] MEDS: ALPRAZolam 0.5 MG TABLET PO PRN (21:53)
[2017-03-22 23:25] VITALS: BP 85/41
[2017-03-23] VITALS (7 sets, daily range): BP systolic 92–168; BP diastolic 46–60
[2017-03-23 01:46] LABS: BASO # 0.1 x10^3/uL (0.0-0.2); BASO % 1 % (0-3); EOS % 3 % (0-3); HEMATOCRIT 24.9 % (36.0-47.0); HEMOGLOBIN 8.7 g/dL (12.0-15.5); LYMPH # 1.7 x10^3/uL (1.0-4.8); LYMPH % 23 % (24-48); MEAN CORPUSCULAR HEMOGLOBIN 28 pg (25-35); MEAN CORPUSCULAR HGB CONC 35 g/dL (31-37); MEAN CORPUSCULAR VOLUME 80 fL (79-100); MONO % 12 % (0-9); NEUT % 61 % (31-73); PLATELET COUNT 326 x10^3/uL (140-400); RED BLOOD COUNT 3.13 x10^6/uL (3.50-5.40); RED CELL DISTRIBUTION WIDTH 16.6 % (11.5-14.5); WHITE BLOOD COUNT 7.3 x10^3/uL (4.0-11.0)
[2017-03-23 02:04] LABS: CALCIUM 7.4 mg/dL (8.5-10.1); CREATININE 2.2 mg/dL (0.6-1.0); GFR 22.1; POTASSIUM 3.2 mmol/L (3.5-5.1)
[2017-03-23] MEDS: OMEGA-3 FATTY ACIDS/FISH OIL 1,000 MG CAPSULE. PO SCH (08:42)
[2017-03-23] MEDS: MAGNESIUM OXIDE 400 MG TABLET PO SCH (08:42)
[2017-03-23] MEDS: ASPIRIN CHEWABLE 81 MG TABLET. PO SCH (08:42)
[2017-03-23] MEDS: ISOSORBIDE MONONITRATE ER 30 MG TAB.ER.24H PO SCH (08:43)
[2017-03-23] MEDS: amLODIPine BESYLATE 10 MG TABLET PO SCH (08:43)
[2017-03-23] MEDS: CLOPIDOGREL BISULFATE 75 MG TABLET PO SCH (08:45)
[2017-03-23] MEDS: AMIODARONE HCL 200 MG TABLET. PO SCH (08:45)
[2017-03-23] MEDS: POTASSIUM CHLORIDE 10 MEQ TABLET.ER. PO SCH ×3 (08:45→17:32)
[2017-03-23] MEDS: CHOLECALCIFEROL (VITAMIN D3) 1,000 UNIT TABLET PO SCH (08:46)
[2017-03-23] MEDS ORDERED: NON FORMULARY ITEM (Ascorbate Calcium/Bioflavonoid (Ester-C 1,000 Mg Tablet) 1 EACH) PO SCH (09:00)
[2017-03-23] MEDS: FUROSEMIDE 20 MG TABLET PO SCH (09:31)
[2017-03-23] MEDS: HYDROcodone/APAP 5/325MG 1 TAB TABLET PO SCH ×3 (09:31→20:45)
[2017-03-23] MEDS: LABETALOL HCL 200 MG TABLET PO SCH ×2 (09:31→20:44)
[2017-03-23] MEDS: APIXABAN 5 MG TABLET. PO SCH ×2 (09:31→17:32)
[2017-03-23] MEDS: CYANOCOBALAMIN (VITAMIN B-12) 1,000 MCG TABLET. PO SCH (11:04)
[2017-03-23] MEDS: ANTI-COAG MONITOR BY PHARMACY. MC PRN (11:30)
--- NOTE | 2017-03-23 11:57 | PDOC ---
Provider Note Provider Note [id number] CHRISTINA ROSENBAUM MD Mar 23, 2017 11:57
--- NOTE | 2017-03-23 12:00 | PDOC ---
Provider Note Provider Note echo 11/12, ef 60 , mod/severe , has nephrotic proteinuria per last visit CHRISTINA ROSENBAUM MD Mar 23, 2017 12:00
--- NOTE | 2017-03-23 12:15 | CONS ---
DATE OF CONSULTATION: 03/23/2017 REASON FOR CONSULTATION: Chest discomfort. HISTORY OF PRESENT ILLNESS: The patient is a pleasant 71-year-old woman with past medical history as noted below, who presents to the hospital because she woke up yesterday morning with some hoarseness in her voice. She was unable to swallow food easily and ultimately because of this, had some discomfort in her lower neck area and prompted evaluation in the ER. Initially, ER evaluation did not reveal any significant pathology, but given her significant vascular history, she was admitted for further evaluation and treatment. The patient reports a sick contact with her grandchild who had a recent URI. She, otherwise, denies any recent worsening exertional dyspnea, orthopnea, PND or lower extremity edema. Denies any angina or syncope. No palpitations. PAST MEDICAL HISTORY: 1. Diastolic heart failure, ejection fraction 65%. 2. Coronary artery disease, status post bypass with prior coronary intervention to the left circumflex. 3. Sick sinus syndrome and tachy shantell syndrome, status post Biotronik pacemaker in 11/2016. 4. Paroxysmal atrial fibrillation. 5. Chronic kidney disease. 6. PAD with right SFA intervention and known history of renal artery stenosis, treated medically. 7. Hypertension. 8. Diabetes. 9. Hyperlipidemia. 10. Valvular heart disease with mild MR and TR and moderate aortic stenosis by recent echocardiogram. 11. Hyperalbuminemia with chronic lower extremity venous insufficiency. PAST SURGICAL HISTORY: As noted above. FAMILY HISTORY: Notable for coronary artery disease. SOCIAL HISTORY: The patient quit tobacco several years ago. Denies any excessive alcohol or any illicit drug use. CURRENT CARDIOVASCULAR MEDICATIONS: Are as follows: 1. Amiodarone 200 mg daily. 2. Amlodipine 10 mg daily. 3. Eliquis 5 mg b.i.d. 4. Aspirin 81 mg daily. 5. Atorvastatin 40 mg daily. 6. Plavix 75 mg daily. 7. Lasix 20 mg daily. 8. Imdur 120 mg daily. 9. Labetalol 200 b.i.d. 10. Potassium 10 mEq t.i.d. ALLERGIES: PENICILLIN, BACITRACIN, CIPRO, ERYTHROMYCIN BASE, NEOMYCIN, NIACIN AND POLYMYXIN B. REVIEW OF SYSTEMS: Negative for 10 out of 14 systems reviewed, unless otherwise mentioned above in the HPI. PHYSICAL EXAMINATION: VITAL SIGNS: Afebrile, 61, 145/57 and 99% on room air. GENERAL: She is alert and oriented, in no acute distress. She is resting comfortably in bed. HEAD AND NECK EXAMINATION: Unremarkable. Her oropharynx is clear, without any obvious erythema or exudates. CARDIAC EXAMINATION: Regular rate and rhythm, without any murmurs, rubs or gallops. LUNGS: Clear to auscultation bilaterally. ABDOMEN: Obese, nontender and nondistended. EXTREMITIES: Right lower extremity with 1+ pitting edema, with chronic venous stasis changes. Left below-knee amputation. NEUROLOGIC: No obvious focal deficits. DIAGNOSTIC STUDIES: Creatinine elevated at 2.2, up from a baseline of 1.6. Hemoglobin of 8.7. Potassium is depleted at 3.2. Cardiac biomarkers are minimally elevated at 0.058. BNP at 4471, which is at the higher end of her previous BNP levels. Diagnostic studies including a chest x-ray did not reveal any acute pulmonary edema. Her EKG demonstrates sinus rhythm with a right bundle branch block, with no acute ST or T-wave changes. IMPRESSION: 1. Acute laryngitis and/or bronchitis in the setting of a recent exposure to upper respiratory infection. 2. Multiple cardiovascular comorbidities, as noted above. RECOMMENDATIONS: From a cardiac standpoint, no further cardiovascular testing necessary at this time given that her symptomatology is unrelated to any cardiac issues. Continue home medications. Her troponin elevation is likely in the setting of stress-induced troponin elevation type 2 and STEMI secondary to her URI and acute renal insufficiency. Gentle hydration overnight and hold diuretics for now. Monitor her anemia and may ultimately need to reconsider anticoagulation. Thank you for this consultation. JOSLYN SRIVASTAVA MD DR: SOCORRO/concetta JOB#: [id number] / [id number]
[2017-03-23] MEDS ORDERED: IV NORMAL SALINE 1000ML BAG 1,000 ML IV ONE (14:15)
[2017-03-23] MEDS: ATORVASTATIN CALCIUM 40 MG TABLET. PO SCH (20:44)
[2017-03-23] MEDS: ALPRAZolam 0.5 MG TABLET PO PRN (23:14)
[2017-03-24 03:45] VITALS: BP 153/61
[2017-03-24 05:44] LABS: CALCIUM 8.1 mg/dL (8.5-10.1); CREATININE 2.1 mg/dL (0.6-1.0); GFR 23.3; POTASSIUM 3.7 mmol/L (3.5-5.1)
[2017-03-24] MEDS: APIXABAN 5 MG TABLET. PO SCH ×2 (06:27→17:02)
[2017-03-24 07:00] VITALS: BP 169/60
[2017-03-24] MEDS: ANTI-COAG MONITOR BY PHARMACY. MC PRN (07:50)
[2017-03-24] MEDS: OMEGA-3 FATTY ACIDS/FISH OIL 1,000 MG CAPSULE. PO SCH (08:17)
[2017-03-24] MEDS: CLOPIDOGREL BISULFATE 75 MG TABLET PO SCH (08:18)
[2017-03-24] MEDS: ASPIRIN CHEWABLE 81 MG TABLET. PO SCH (08:18)
[2017-03-24] MEDS: MAGNESIUM OXIDE 400 MG TABLET PO SCH (08:18)
[2017-03-24] MEDS: POTASSIUM CHLORIDE 10 MEQ TABLET.ER. PO SCH ×3 (08:18→17:02)
[2017-03-24] MEDS: CYANOCOBALAMIN (VITAMIN B-12) 1,000 MCG TABLET. PO SCH (08:18)
[2017-03-24] MEDS: CHOLECALCIFEROL (VITAMIN D3) 1,000 UNIT TABLET PO SCH (08:18)
[2017-03-24] MEDS: HYDROcodone/APAP 5/325MG 1 TAB TABLET PO SCH ×3 (08:19→21:17)
[2017-03-24] MEDS: AMIODARONE HCL 200 MG TABLET. PO SCH (08:23)
[2017-03-24] MEDS: LABETALOL HCL 200 MG TABLET PO SCH ×2 (08:23→21:17)
[2017-03-24] MEDS: amLODIPine BESYLATE 10 MG TABLET PO SCH (08:24)
[2017-03-24] MEDS: ISOSORBIDE MONONITRATE ER 30 MG TAB.ER.24H PO SCH (08:24)
--- NOTE | 2017-03-24 09:35 | PDOC ---
Provider Note Provider Note no new sxs, still dry cough, hoarse- creat 2.1, K+ 3.7- cont to hold lasix, po hydrate, add robitussin and tessalon, maybe home am if renal better CHRISTINA ROSENBAUM MD Mar 24, 2017 09:35
[2017-03-24 11:00] VITALS: BP 111/53
--- NOTE | 2017-03-24 12:26 | HP ---
ADMIT DATE: 03/22/2017 CHIEF COMPLAINT: Hoarseness. HISTORY OF PRESENT ILLNESS: A 71-year-old white female with a history of ischemic coronary artery disease and mild congestive heart failure and hypertension, came in because of hoarseness and cold symptoms for one day. She denies cough, sputum production, orthopnea, chest pain, dyspnea or other complaints. She was admitted as a possible cardiac patient, even though she had noted the above complaints. Chest x-ray was clear and there is no residual pleural effusion and that it was tapped a month ago here at [facility]. PAST MEDICAL HISTORY: Well documented in the old records. ALLERGIES: ANTIBIOTICS noted. MEDICATIONS: No new meds. SOCIAL HISTORY: Quit smoking years ago. Lives with family. Nonsmoker, nondrinker. FAMILY HISTORY: Unremarkable. REVIEW OF SYSTEMS: No other complaints. OBJECTIVE: ENT: All within normal limits. NECK: No masses, nodes or thyroid enlargement or JVD. LUNGS: Decreased breath sounds. No dullness to percussion. CARDIOVASCULAR: Regular rate. No irregular beat, murmur or tachycardia. ABDOMEN: Soft, benign and nontender. EXTREMITIES: She has a left dwyph-non-adel amputation, right side showed no edema, decreased pedal pulses are noted. Upper extremities normal. NEUROLOGIC: Physiologic and nonfocal. ASSESSMENT: Upper respiratory infection with secondary laryngitis. She has some degree of prerenal azotemia and hypokalemia from diuretic use and mildly elevated blood sugars. She is a diet-controlled diabetic. PLAN: Push oral fluids. Hold Lasix, more potassium and do an A1c. CHRISTINA ROSENBAUM MD DR: AVNI/nts JOB#: [id number] / [id number]
[2017-03-24] MEDS: guaiFENesin DM 200MG/20MG 10 ML SYRUP PO PRN (12:27)
[2017-03-24] MEDS: BENZOCAINE/MENTHOL LOZENGE. PO PRN (15:20)
[2017-03-24 15:48] VITALS: BP 149/59
[2017-03-24 19:00] VITALS: BP 147/90
[2017-03-24] MEDS: ATORVASTATIN CALCIUM 40 MG TABLET. PO SCH (21:17)
[2017-03-24 22:43] VITALS: BP 134/60
[2017-03-24] MEDS: ALPRAZolam 0.5 MG TABLET PO PRN (23:27)
[2017-03-25 02:54] VITALS: BP 125/51
[2017-03-25 04:19] LABS: CREATININE 2.3 mg/dL (0.6-1.0); POTASSIUM 4.2 mmol/L (3.5-5.1)
[2017-03-25] MEDS: guaiFENesin DM 200MG/20MG 10 ML SYRUP PO PRN ×2 (05:45→15:32)
[2017-03-25] MEDS: APIXABAN 5 MG TABLET. PO SCH ×2 (05:45→18:00)
[2017-03-25 07:00] VITALS: BP 143/63
--- NOTE | 2017-03-25 08:46 | PDOC ---
Provider Note Provider Note bp lower but creat up 2.3- K+ better- will add iv saline x 1 liter , follow renal re baseline 1.6 CHRISTINA ROSENBAUM MD Mar 25, 2017 08:46
[2017-03-25] MEDS ORDERED: IV NORMAL SALINE 1000ML BAG 1,000 ML IV ONE (09:00)
[2017-03-25] MEDS: MAGNESIUM OXIDE 400 MG TABLET PO SCH (09:03)
[2017-03-25] MEDS: OMEGA-3 FATTY ACIDS/FISH OIL 1,000 MG CAPSULE. PO SCH (09:03)
[2017-03-25] MEDS: CLOPIDOGREL BISULFATE 75 MG TABLET PO SCH (09:04)
[2017-03-25] MEDS: CYANOCOBALAMIN (VITAMIN B-12) 1,000 MCG TABLET. PO SCH (09:04)
[2017-03-25] MEDS: AMIODARONE HCL 200 MG TABLET. PO SCH (09:04)
[2017-03-25] MEDS: ISOSORBIDE MONONITRATE ER 30 MG TAB.ER.24H PO SCH (09:05)
[2017-03-25] MEDS: CHOLECALCIFEROL (VITAMIN D3) 1,000 UNIT TABLET PO SCH (09:05)
[2017-03-25] MEDS: ASPIRIN CHEWABLE 81 MG TABLET. PO SCH (09:06)
[2017-03-25] MEDS: HYDROcodone/APAP 5/325MG 1 TAB TABLET PO SCH ×3 (09:06→21:24)
[2017-03-25] MEDS: LABETALOL HCL 200 MG TABLET PO SCH ×2 (09:06→21:23)
[2017-03-25] MEDS: amLODIPine BESYLATE 5 MG TABLET PO SCH (09:07)
[2017-03-25 11:00] VITALS: BP 116/51
[2017-03-25] MEDS: ANTI-COAG MONITOR BY PHARMACY. MC PRN (12:09)
[2017-03-25 15:23] VITALS: BP 123/59
[2017-03-25 19:10] VITALS: BP 144/54
[2017-03-25] MEDS: ATORVASTATIN CALCIUM 40 MG TABLET. PO SCH (21:23)
[2017-03-25 23:12] VITALS: BP 139/56
[2017-03-25] MEDS: ALPRAZolam 0.5 MG TABLET PO PRN (23:17)
[2017-03-26 02:41] VITALS: BP 122/47
[2017-03-26] MEDS: BENZOCAINE/MENTHOL LOZENGE. PO PRN ×4 (03:14→22:00)
[2017-03-26 06:05] LABS: CALCIUM 8.5 mg/dL (8.5-10.1); CREATININE 2.1 mg/dL (0.6-1.0); GFR 23.3; POTASSIUM 3.9 mmol/L (3.5-5.1)
[2017-03-26] MEDS: APIXABAN 5 MG TABLET. PO SCH ×2 (06:19→17:21)
[2017-03-26 07:00] VITALS: BP 167/57
[2017-03-26] MEDS: guaiFENesin DM 200MG/20MG 10 ML SYRUP PO PRN ×2 (08:40→22:01)
[2017-03-26] MEDS: MAGNESIUM OXIDE 400 MG TABLET PO SCH (08:41)
[2017-03-26] MEDS: HYDROcodone/APAP 5/325MG 1 TAB TABLET PO SCH ×4 (08:41→22:01)
[2017-03-26] MEDS: CLOPIDOGREL BISULFATE 75 MG TABLET PO SCH (08:41)
[2017-03-26] MEDS: ASPIRIN CHEWABLE 81 MG TABLET. PO SCH (08:41)
[2017-03-26] MEDS: CYANOCOBALAMIN (VITAMIN B-12) 1,000 MCG TABLET. PO SCH (08:42)
[2017-03-26] MEDS: LABETALOL HCL 200 MG TABLET PO SCH ×2 (08:42→22:00)
[2017-03-26] MEDS: OMEGA-3 FATTY ACIDS/FISH OIL 1,000 MG CAPSULE. PO SCH (08:42)
[2017-03-26] MEDS: CHOLECALCIFEROL (VITAMIN D3) 1,000 UNIT TABLET PO SCH (08:42)
[2017-03-26] MEDS: AMIODARONE HCL 200 MG TABLET. PO SCH (08:43)
[2017-03-26] MEDS: amLODIPine BESYLATE 5 MG TABLET PO SCH (08:43)
[2017-03-26] MEDS: ISOSORBIDE MONONITRATE ER 30 MG TAB.ER.24H PO SCH (08:44)
--- NOTE | 2017-03-26 08:50 | PDOC ---
Provider Note Provider Note bp lower, a1c 7.5, creat down 2.1, but baseline 1.5 - feel still needs some fluid and less bp reduction, 1 more liter saline and lab in am, dc if better- she agrees CHRISTINA ROSENBAUM MD Mar 26, 2017 08:50
[2017-03-26] MEDS: IV NORMAL SALINE 1000ML BAG 1,000 ML IV SCH ×2 (08:52→22:05)
[2017-03-26 11:00] VITALS: BP 134/56
[2017-03-26] MEDS: ANTI-COAG MONITOR BY PHARMACY. MC PRN (12:41)
[2017-03-26 15:00] VITALS: BP 108/52
[2017-03-26 19:45] VITALS: BP 112/52
[2017-03-26] MEDS: ATORVASTATIN CALCIUM 40 MG TABLET. PO SCH (22:00)
[2017-03-26 23:00] VITALS: BP 114/47
[2017-03-27 03:00] VITALS: BP 164/60
[2017-03-27 06:13] LABS: CALCIUM 8.3 mg/dL (8.5-10.1); CREATININE 2.1 mg/dL (0.6-1.0); GFR 23.3; POTASSIUM 4.4 mmol/L (3.5-5.1)
[2017-03-27] MEDS: APIXABAN 5 MG TABLET. PO SCH (06:26)
[2017-03-27 07:00] VITALS: BP 147/48
[2017-03-27] MEDS: ASPIRIN CHEWABLE 81 MG TABLET. PO SCH (09:03)
[2017-03-27] MEDS: CYANOCOBALAMIN (VITAMIN B-12) 1,000 MCG TABLET. PO SCH (09:04)
[2017-03-27] MEDS: CLOPIDOGREL BISULFATE 75 MG TABLET PO SCH (09:04)
[2017-03-27] MEDS: HYDROcodone/APAP 5/325MG 1 TAB TABLET PO SCH (09:04)
[2017-03-27] MEDS: AMIODARONE HCL 200 MG TABLET. PO SCH (09:05)
[2017-03-27] MEDS: LABETALOL HCL 200 MG TABLET PO SCH (09:05)
[2017-03-27] MEDS: CHOLECALCIFEROL (VITAMIN D3) 1,000 UNIT TABLET PO SCH (09:05)
[2017-03-27] MEDS: ISOSORBIDE MONONITRATE ER 30 MG TAB.ER.24H PO SCH (09:05)
[2017-03-27] MEDS: MAGNESIUM OXIDE 400 MG TABLET PO SCH (09:06)
[2017-03-27] MEDS: OMEGA-3 FATTY ACIDS/FISH OIL 1,000 MG CAPSULE. PO SCH (09:06)
[2017-03-27] MEDS: ANTI-COAG MONITOR BY PHARMACY. MC PRN (09:07)
--- NOTE | 2017-03-27 09:11 | DISCH ---
DISCHARGE INSTRUCTIONS Condition on Discharge Condition on Discharge: Stable Activity After Discharge Activity Instructions for Disc: No restrictions Diet after Discharge Diet after Discharge: No Added Salt Follow-Up Follow up with: CHRISTINA Kaur MD Mar 27, 2017 09:11
--- NOTE | 2017-03-27 09:15 | PDOC ---
Provider Note Provider Note [id number] CHRISTINA ROSENBAUM MD Mar 27, 2017 09:15
[2017-03-27] MEDS: BENZOCAINE/MENTHOL LOZENGE. PO PRN (10:54)
[2017-03-27 11:11] VITALS: BP 99/47
[2017-03-27 14:51] VITALS: BP 128/45
--- NOTE | 2017-03-27 15:48 | DS ---
DATE OF DISCHARGE: 03/27/2017 HOSPITAL SUMMARY: The patient came in with hoarseness, cough, weakness and fatigue. She did not really have any chest pain or other similar complaints. Her chest x-ray was clear, but her initial potassium was low at 3.2, BUN elevated at 27, creatinine 2.2 above her normal baseline. Creatinine has gone down slightly down to 2.1 with BUN at 20, potassium 4.4. CBC showed anemia with hemoglobin around 10. Flu tests were negative and chest x-ray was clear. She was given IV fluids and some blood pressure meds were held because of the prerenal azotemia and the Lasix was held as well. Potassium replacement was done and after a couple liters of fluid, she is feeling a little better with a creatinine to be stable. She is able to be followed as an outpatient at this point. FINAL DIAGNOSES: 1. Acute on chronic renal failure, chronic kidney disease stage 4. 2. Hypokalemia, resolved. 3. Anemia of chronic disease. OPERATIONS, PROCEDURES, COMPLICATIONS, CONSULTATIONS: None. DISPOSITION: We will have her take furosemide and potassium only p.r.n. as she has nephrotic range proteinuria, but no edema at this time. Blood pressure meds remain the same. Office followup in 1 week with repeat BMP. We may have to reduce blood pressure meds as it may be contributing to the prerenal component. Prognosis is guarded. CHRISTINA ROSENBAUM MD DR: AVNI/concetta JOB#: [id number] / [id number]
== END 2017-03-27 14:45 | disposition home or self-care (01) | DRG 682 ==
LOC: ER 10:48 → 2 SOUTH 12:49
PROVIDERS: ADMIT Family Medicine; ATTEND Family Medicine
DX: N17.9 Acute kidney failure, unspecified (principal); E43 Unspecified severe protein-calorie malnutrition; E11.22 Type 2 diabetes mellitus with diabetic chronic kidney disease; E11.65 Type 2 diabetes mellitus with hyperglycemia; I48.0 Paroxysmal atrial fibrillation; I13.0 Hypertensive heart and chronic kidney disease with heart failure and stage 1 through stage 4 chronic kidney disease, or unspecified chronic kidney disease; I50.32 Chronic diastolic (congestive) heart failure; N18.4 Chronic kidney disease, stage 4 (severe); N04.9 Nephrotic syndrome with unspecified morphologic changes; D63.8 Anemia in other chronic diseases classified elsewhere; J04.0 Acute laryngitis; E78.00 Pure hypercholesterolemia, unspecified; E78.5 Hyperlipidemia, unspecified; E87.6 Hypokalemia; I25.10 Atherosclerotic heart disease of native coronary artery without angina pectoris; I35.0 Nonrheumatic aortic (valve) stenosis; I87.2 Venous insufficiency (chronic) (peripheral); T50.2X5A Adverse effect of carbonic-anhydrase inhibitors, benzothiadiazides and other diuretics, initial encounter; Z79.02 Long term (current) use of antithrombotics/antiplatelets; Z79.01 Long term (current) use of anticoagulants; Z79.82 Long term (current) use of aspirin; Z79.899 Other long term (current) drug therapy; Z95.1 Presence of aortocoronary bypass graft; Z89.612 Acquired absence of left leg above knee; Z87.891 Personal history of nicotine dependence; Z88.1 Allergy status to other antibiotic agents; Z88.0 Allergy status to penicillin; Z68.29 Body mass index [BMI] 29.0-29.9, adult; Z95.0 Presence of cardiac pacemaker; Z82.49 Family history of ischemic heart disease and other diseases of the circulatory system
CPT/HCPCS: 36415; 71010; 80048; 80053; 82553; 83036; 83880; 84484; 85025; 87804; 93005; J7030; 99285-25

== ENCOUNTER 2017-06-02 23:53 | Emergency (ER) | payer MEDICARE, OTHER ==
[2017-06-03 00:20] LABS: ADD MAN DIFF? NO
[2017-06-03 00:25] LABS: BASO # 0.1 x10^3/uL (0.0-0.2); BASO % 1 % (0-3); EOS # 0.3 x10^3/uL (0.0-0.7); EOS % 4 % (0-3); HEMATOCRIT 31.1 % (36.0-47.0); HEMOGLOBIN 10.9 g/dL (12.0-15.5); LYMPH # 1.4 x10^3/uL (1.0-4.8); LYMPH % 19 % (24-48); MEAN CORPUSCULAR HEMOGLOBIN 28 pg (25-35); MEAN CORPUSCULAR HGB CONC 35 g/dL (31-37); MEAN CORPUSCULAR VOLUME 80 fL (79-100); MONO # 0.8 x10^3/uL (0.0-1.1); MONO % 11 % (0-9); NEUT # 4.6 x10^3uL (1.8-7.7); NEUT % 65 % (31-73); PLATELET COUNT 455 x10^3/uL (140-400); RED BLOOD COUNT 3.91 x10^6/uL (3.50-5.40); WHITE BLOOD COUNT 7.1 x10^3/uL (4.0-11.0)
[2017-06-03] MEDS: IV NORMAL SALINE 500ML BAG 500 ML IV ×2 (00:30)
[2017-06-03 00:44] LABS: INR 1.2 (0.8-1.1); PARTIAL THROMBOPLASTIN TIME 29 SEC (24-38)
[2017-06-03 00:46] LABS: ANION GAP 10 (6-14); BLOOD UREA NITROGEN 28 mg/dL (7-20); BUN/CREATININE RATIO 11 (6-20); CALCIUM 8.3 mg/dL (8.5-10.1); CARBON DIOXIDE 28 mmol/L (21-32); CHLORIDE 96 mmol/L (98-107); CREATININE 2.6 mg/dL (0.6-1.0); GFR 18.2; GLUCOSE 162 mg/dL (70-99); POTASSIUM 3.4 mmol/L (3.5-5.1); SODIUM 134 mmol/L (136-145)
[2017-06-03 00:52] LABS: ALBUMIN/GLOBULIN RATIO 0.6 (1.0-1.7); ALK PHOS 114 U/L (46-116); ALT (SGPT) 19 U/L (14-59); AST (SGOT) 30 U/L (15-37); MAGNESIUM 1.9 mg/dL (1.8-2.4); TOTAL BILIRUBIN 0.5 mg/dL (0.2-1.0); TOTAL PROTEIN 5.6 g/dL (6.4-8.2)
[2017-06-03 00:54] LABS: TROPONINI 0.041 ng/mL (0.000-0.055)
[2017-06-03 00:59] LABS: THYROID STIM HORMONE (TSH) 2.076 uIU/mL (0.358-3.74)
[2017-06-03 01:01] LABS: NT-PRO BNP 10191 pg/mL (0-124)
[2017-06-03] MEDS ORDERED: POTASSIUM CHLORIDE 20 MEQ TABLET.ER. PO ×2 (02:00)
== END 2017-06-03 01:35 | disposition home or self-care (01) ==
LOC: ER 23:53
DX: S20.211A Contusion of right front wall of thorax, initial encounter (principal); I11.0 Hypertensive heart disease with heart failure; I50.9 Heart failure, unspecified; R42 Dizziness and giddiness; R06.02 Shortness of breath; I25.10 Atherosclerotic heart disease of native coronary artery without angina pectoris; E78.00 Pure hypercholesterolemia, unspecified; E11.9 Type 2 diabetes mellitus without complications; Z95.5 Presence of coronary angioplasty implant and graft; Z95.0 Presence of cardiac pacemaker; Z88.0 Allergy status to penicillin; Z88.1 Allergy status to other antibiotic agents; Z89.612 Acquired absence of left leg above knee; W18.39XA Other fall on same level, initial encounter; Y93.89 Activity, other specified; Y99.8 Other external cause status; Y92.89 Other specified places as the place of occurrence of the external cause
CPT/HCPCS: 36415; 71101; 80053; 83735; 83880; 84443; 84484; 85025; 85610; 85730; 93005; 96360; 99285-25; J7040

== ENCOUNTER → 2017-08-14 | Outpatient (CLI) | payer MEDICARE, OTHER ==
[2017-08-14 15:04] LABS: ALBUMIN 1.8 g/dL (3.4-5.0); ANION GAP 6 (6-14); BLOOD UREA NITROGEN 19 mg/dL (7-20); CALCIUM 8.5 mg/dL (8.5-10.1); CARBON DIOXIDE 29 mmol/L (21-32); CHLORIDE 105 mmol/L (98-107); CREATININE 2.4 mg/dL (0.6-1.0); GLUCOSE 158 mg/dL (70-99); PHOSPHORUS 3.9 mg/dL (2.6-4.7); POTASSIUM 3.6 mmol/L (3.5-5.1); SODIUM 140 mmol/L (136-145)
== END | disposition home or self-care (01) ==
LOC: LAB 14:25
DX: N17.9 Acute kidney failure, unspecified (principal)
CPT/HCPCS: 36415; 80069

== ENCOUNTER 2017-08-18 08:51 | Inpatient (IN) | payer MEDICARE, OTHER ==
[2017-08-18 09:30] LABS: ADD MAN DIFF? NO
[2017-08-18 09:38] LABS: BASO # 0.1 x10^3/uL (0.0-0.2); BASO % 1 % (0-3); EOS # 0.1 x10^3/uL (0.0-0.7); EOS % 2 % (0-3); HEMOGLOBIN 9.9 g/dL (12.0-15.5); LYMPH # 0.6 x10^3/uL (1.0-4.8); LYMPH % 9 % (24-48); MEAN CORPUSCULAR HEMOGLOBIN 28 pg (25-35); MEAN CORPUSCULAR HGB CONC 36 g/dL (31-37); MEAN CORPUSCULAR VOLUME 77 fL (79-100); MONO # 0.5 x10^3/uL (0.0-1.1); MONO % 7 % (0-9); NEUT # 5.4 x10^3uL (1.8-7.7); NEUT % 81 % (31-73); PLATELET COUNT 327 x10^3/uL (140-400); RED BLOOD COUNT 3.61 x10^6/uL (3.50-5.40); RED CELL DISTRIBUTION WIDTH 14.7 % (11.5-14.5); WHITE BLOOD COUNT 6.7 x10^3/uL (4.0-11.0)
[2017-08-18 09:47] LABS: INR 1.2 (0.8-1.1); PROTHROMBIN TIME PATIENT 14.2 SEC (11.7-14.0)
[2017-08-18 09:49] LABS: ANION GAP 9 (6-14); BLOOD UREA NITROGEN 18 mg/dL (7-20); BUN/CREATININE RATIO 8 (6-20); CALCIUM 8.6 mg/dL (8.5-10.1); CARBON DIOXIDE 25 mmol/L (21-32); CHLORIDE 102 mmol/L (98-107); CREATININE 2.4 mg/dL (0.6-1.0); GLUCOSE 162 mg/dL (70-99); POTASSIUM 3.6 mmol/L (3.5-5.1); SODIUM 136 mmol/L (136-145)
[2017-08-18] MEDS: IPRATRPIUM/ALBUTEROL 0.5/2.5MG 3 ML NEBU. NEB ×5 (09:49→19:51)
[2017-08-18] MEDS: FUROSEMIDE 40 MG/4 ML VIAL. IVP ×2 (09:50→22:50)
[2017-08-18 09:55] LABS: TROPONINI < 0.017 ng/mL (0.000-0.055)
[2017-08-18 09:56] LABS: ALBUMIN/GLOBULIN RATIO 0.6 (1.0-1.7); ALK PHOS 116 U/L (46-116); ALT (SGPT) 9 U/L (14-59); AST (SGOT) 20 U/L (15-37); MAGNESIUM 1.7 mg/dL (1.8-2.4); TOTAL BILIRUBIN 0.5 mg/dL (0.2-1.0); TOTAL PROTEIN 5.4 g/dL (6.4-8.2)
[2017-08-18 09:58] LABS: NT-PRO BNP 13794 pg/mL (0-124)
[2017-08-18 10:42] LABS: BILIRUBIN,URINE NEGATIVE (NEG); CLARITY,URINE CLEAR; COLOR,URINE YELLOW; GLUCOSE,URINE 250 mg/dL (NEG); NITRITE,URINE NEGATIVE (NEG); PROTEIN,URINE >=300 mg/dL (NEG-TRACE); UROBILINOGEN,URINE 0.2 mg/dL (0.2 mg/dL)
[2017-08-18] MEDS ORDERED: ONDANSETRON PF 4 MG/2 ML VIAL. IV (10:45)
[2017-08-18 10:57] LABS: BACTERIA,URINE FEW /HPF (0-FEW)
[2017-08-18 12:03] LABS: POC GLUCOSE 139 mg/dL (70-99)
[2017-08-18] MEDS ORDERED: HYDROcodone/APAP 5/325MG 1 TAB TABLET PO (14:00)
[2017-08-18] MEDS: amLODIPine BESYLATE 10 MG TABLET PO (14:18)
[2017-08-18] MEDS: CYANOCOBALAMIN (VITAMIN B-12) 1,000 MCG TABLET. PO (14:19)
[2017-08-18] MEDS: CLOPIDOGREL BISULFATE 75 MG TABLET PO (14:19)
[2017-08-18] MEDS: CHOLECALCIFEROL (VITAMIN D3) 1,000 UNIT TABLET PO (14:19)
[2017-08-18] MEDS: ASPIRIN CHEWABLE 81 MG TABLET. PO (14:19)
[2017-08-18] MEDS: OMEGA-3 FATTY ACIDS/FISH OIL 1,000 MG CAPSULE. PO (14:19)
[2017-08-18] MEDS: MAGNESIUM OXIDE 400 MG TABLET PO (14:19)
[2017-08-18] MEDS: LABETALOL HCL 200 MG TABLET PO ×2 (14:20→21:46)
[2017-08-18] MEDS: AMIODARONE HCL 200 MG TABLET. PO (14:21)
[2017-08-18] MEDS: ASCORBIC ACID 500 MG TABLET PO (14:23)
[2017-08-18] MEDS: ISOSORBIDE MONONITRATE ER 30 MG TAB.ER.24H PO (14:24)
[2017-08-18] MEDS: APIXABAN 5 MG TABLET. PO (16:38)
[2017-08-18] MEDS: HYDROcodone/APAP 5/325MG 1 TAB TABLET PO (16:38)
[2017-08-18 17:02] LABS: TROPONINI 0.023 ng/mL (0.000-0.055)
[2017-08-18] MEDS: ATORVASTATIN CALCIUM 40 MG TABLET. PO (21:43)
[2017-08-19] MEDS: ALBUTEROL SULFATE 2.5 MG/3 ML NEBU. NEB (00:33)
[2017-08-19 05:28] LABS: ANION GAP 8 (6-14); BLOOD UREA NITROGEN 21 mg/dL (7-20); CARBON DIOXIDE 27 mmol/L (21-32); CHLORIDE 100 mmol/L (98-107); CREATININE 2.7 mg/dL (0.6-1.0); GFR 17.4; GLUCOSE 149 mg/dL (70-99); MAGNESIUM 1.7 mg/dL (1.8-2.4); POTASSIUM 3.6 mmol/L (3.5-5.1); SODIUM 135 mmol/L (136-145)
[2017-08-19] MEDS: IPRATRPIUM/ALBUTEROL 0.5/2.5MG 3 ML NEBU. NEB ×4 (07:41→20:19)
[2017-08-19] MEDS: ASCORBIC ACID 500 MG TABLET PO (09:10)
[2017-08-19] MEDS: ASPIRIN CHEWABLE 81 MG TABLET. PO (09:10)
[2017-08-19] MEDS: MAGNESIUM OXIDE 400 MG TABLET PO (09:10)
[2017-08-19] MEDS: amLODIPine BESYLATE 10 MG TABLET PO (09:10)
[2017-08-19] MEDS: CHOLECALCIFEROL (VITAMIN D3) 1,000 UNIT TABLET PO (09:11)
[2017-08-19] MEDS: CLOPIDOGREL BISULFATE 75 MG TABLET PO (09:11)
[2017-08-19] MEDS: CYANOCOBALAMIN (VITAMIN B-12) 1,000 MCG TABLET. PO (09:11)
[2017-08-19] MEDS: LABETALOL HCL 200 MG TABLET PO ×2 (09:14→21:29)
[2017-08-19] MEDS: OMEGA-3 FATTY ACIDS/FISH OIL 1,000 MG CAPSULE. PO (09:14)
[2017-08-19] MEDS: ISOSORBIDE MONONITRATE ER 30 MG TAB.ER.24H PO (09:14)
[2017-08-19] MEDS: APIXABAN 5 MG TABLET. PO ×2 (09:15→18:37)
[2017-08-19] MEDS: AMIODARONE HCL 200 MG TABLET. PO (09:15)
[2017-08-19] MEDS: POTASSIUM CHLORIDE 10 MEQ TABLET.ER. PO ×2 (09:20→18:00)
[2017-08-19] MEDS: methylPREDNISolone SOD SUCC PF 125 MG/2 ML VIAL. IV ×2 (09:21→21:27)
[2017-08-19] MEDS: ATORVASTATIN CALCIUM 40 MG TABLET. PO (21:27)
[2017-08-19] MEDS: FAMOTIDINE 20 MG TABLET. PO (21:27)
[2017-08-19] MEDS: TEMAZEPAM 15 MG CAPSULE PO (22:34)
[2017-08-20] MEDS: IPRATRPIUM/ALBUTEROL 0.5/2.5MG 3 ML NEBU. NEB ×4 (07:07→19:21)
[2017-08-20] MEDS: ANTI-COAG MONITOR BY PHARMACY. MC (08:12)
[2017-08-20] MEDS: CLOPIDOGREL BISULFATE 75 MG TABLET PO (09:18)
[2017-08-20] MEDS: MAGNESIUM OXIDE 400 MG TABLET PO (09:18)
[2017-08-20] MEDS: methylPREDNISolone SOD SUCC PF 125 MG/2 ML VIAL. IV ×2 (09:18→20:55)
[2017-08-20] MEDS: AMIODARONE HCL 200 MG TABLET. PO (09:18)
[2017-08-20] MEDS: CHOLECALCIFEROL (VITAMIN D3) 1,000 UNIT TABLET PO (09:18)
[2017-08-20] MEDS: ISOSORBIDE MONONITRATE ER 30 MG TAB.ER.24H PO (09:19)
[2017-08-20] MEDS: ASCORBIC ACID 500 MG TABLET PO (09:19)
[2017-08-20] MEDS: OMEGA-3 FATTY ACIDS/FISH OIL 1,000 MG CAPSULE. PO (09:20)
[2017-08-20] MEDS: POTASSIUM CHLORIDE 10 MEQ TABLET.ER. PO ×2 (09:20→18:35)
[2017-08-20] MEDS: LABETALOL HCL 200 MG TABLET PO ×2 (09:20→20:53)
[2017-08-20] MEDS: amLODIPine BESYLATE 10 MG TABLET PO (09:21)
[2017-08-20] MEDS: APIXABAN 5 MG TABLET. PO ×2 (09:21→18:35)
[2017-08-20] MEDS: CYANOCOBALAMIN (VITAMIN B-12) 1,000 MCG TABLET. PO (09:21)
[2017-08-20] MEDS: ASPIRIN CHEWABLE 81 MG TABLET. PO (09:28)
[2017-08-20] MEDS: FUROSEMIDE 40 MG/4 ML VIAL. IVP (18:35)
[2017-08-20] MEDS: ATORVASTATIN CALCIUM 40 MG TABLET. PO (20:52)
[2017-08-20] MEDS: FAMOTIDINE 20 MG TABLET. PO (20:53)
[2017-08-20] MEDS: HYDROcodone/APAP 5/325MG 1 TAB TABLET PO (21:00)
[2017-08-20] MEDS: TEMAZEPAM 15 MG CAPSULE PO (23:15)
[2017-08-20] MEDS: ALBUTEROL SULFATE 2.5 MG/3 ML NEBU. NEB (23:22)
[2017-08-21 04:20] LABS: HEMOGLOBIN A1C 5.8 % (4.8-5.6)
[2017-08-21] MEDS: CLOPIDOGREL BISULFATE 75 MG TABLET PO (06:21)
[2017-08-21] MEDS: APIXABAN 5 MG TABLET. PO ×2 (06:21→17:09)
[2017-08-21 07:09] LABS: ANION GAP 13 (6-14); BLOOD UREA NITROGEN 46 mg/dL (7-20); CALCIUM 7.6 mg/dL (8.5-10.1); CARBON DIOXIDE 23 mmol/L (21-32); CHLORIDE 100 mmol/L (98-107); CREATININE 3.1 mg/dL (0.6-1.0); GFR 14.9; GLUCOSE 248 mg/dL (70-99); MAGNESIUM 1.9 mg/dL (1.8-2.4); SODIUM 136 mmol/L (136-145)
[2017-08-21] MEDS: ANTI-COAG MONITOR BY PHARMACY. MC (08:25)
[2017-08-21] MEDS: IPRATRPIUM/ALBUTEROL 0.5/2.5MG 3 ML NEBU. NEB ×4 (08:37→19:50)
[2017-08-21 09:05] LABS: BASO % 0 % (0-3); EOS % 0 % (0-3); HEMATOCRIT 27.1 % (36.0-47.0); HEMOGLOBIN 9.2 g/dL (12.0-15.5); LYMPH # 0.3 x10^3/uL (1.0-4.8); LYMPH % 5 % (24-48); MEAN CORPUSCULAR HEMOGLOBIN 27 pg (25-35); MEAN CORPUSCULAR HGB CONC 34 g/dL (31-37); MEAN CORPUSCULAR VOLUME 79 fL (79-100); MONO # 0.2 x10^3/uL (0.0-1.1); MONO % 4 % (0-9); NEUT # 5.4 x10^3uL (1.8-7.7); NEUT % 92 % (31-73); PLATELET COUNT 364 x10^3/uL (140-400); RED BLOOD COUNT 3.44 x10^6/uL (3.50-5.40); RED CELL DISTRIBUTION WIDTH 14.8 % (11.5-14.5); WHITE BLOOD COUNT 5.9 x10^3/uL (4.0-11.0)
[2017-08-21 09:10] LABS: ADD MAN DIFF? YES
[2017-08-21] MEDS: CHOLECALCIFEROL (VITAMIN D3) 1,000 UNIT TABLET PO (09:43)
[2017-08-21] MEDS: CYANOCOBALAMIN (VITAMIN B-12) 1,000 MCG TABLET. PO (09:43)
[2017-08-21] MEDS: FUROSEMIDE 40 MG/4 ML VIAL. IVP ×2 (09:44→15:31)
[2017-08-21] MEDS: methylPREDNISolone SOD SUCC PF 125 MG/2 ML VIAL. IV ×2 (09:44→21:03)
[2017-08-21] MEDS: ASCORBIC ACID 500 MG TABLET PO (09:44)
[2017-08-21] MEDS: POTASSIUM CHLORIDE 10 MEQ TABLET.ER. PO ×2 (09:44→17:09)
[2017-08-21] MEDS: MAGNESIUM OXIDE 400 MG TABLET PO (09:44)
[2017-08-21] MEDS: amLODIPine BESYLATE 10 MG TABLET PO (09:45)
[2017-08-21] MEDS: ASPIRIN CHEWABLE 81 MG TABLET. PO (09:45)
[2017-08-21] MEDS: OMEGA-3 FATTY ACIDS/FISH OIL 1,000 MG CAPSULE. PO (09:45)
[2017-08-21] MEDS: LABETALOL HCL 200 MG TABLET PO ×2 (09:46→21:09)
[2017-08-21] MEDS: ISOSORBIDE MONONITRATE ER 30 MG TAB.ER.24H PO (09:46)
[2017-08-21] MEDS: AMIODARONE HCL 200 MG TABLET. PO (09:56)
[2017-08-21 11:37] LABS: % BANDS 4 % (0-9); % LYMPHS 4 % (24-48); % MONOS 2 % (0-10); % SEGS 90 % (35-66); ANISOCYTOSIS SLIGHT; PLT ESTIMATE ADEQUATE (ADEQUATE)
[2017-08-21] MEDS: IV RINGERS,LACTATED 1000ML 1,000 ML IV (12:00)
[2017-08-21 12:11] LABS: PROCALCITONIN 0.27 ng/mL (0.00-0.10)
[2017-08-21] MEDS: metOLazone 2.5 MG TABLET PO (15:31)
[2017-08-21] MEDS ORDERED: LIDOCAINE 1% PF 2 ML VIAL. ID (17:00)
[2017-08-21] MEDS ORDERED: PROCHLORPERAZINE 10 MG/2 ML VIAL. IV (17:00)
[2017-08-21] MEDS ORDERED: fentaNYL PF VIAL 100 MCG/2 ML VIAL IV ×2 (17:00)
[2017-08-21] MEDS ORDERED: ONDANSETRON PF 4 MG/2 ML VIAL. IV (17:00)
[2017-08-21] MEDS ORDERED: MORPHINE SULFATE 4 MG/ML DISP.SYRIN. IV (17:00)
[2017-08-21] MEDS: HYDROcodone/APAP 5/325MG 1 TAB TABLET PO (20:23)
[2017-08-21] MEDS: ATORVASTATIN CALCIUM 40 MG TABLET. PO (21:09)
[2017-08-21] MEDS: FAMOTIDINE 20 MG TABLET. PO (21:09)
[2017-08-21 23:15] LABS: C DIFF BY PCR Negative (Negative)
[2017-08-22] MEDS: TEMAZEPAM 15 MG CAPSULE PO ×2 (00:29→23:24)
[2017-08-22 05:56] LABS: % SAT IRON 7 % (15-34); IRON,SERUM 16 ug/dL (50-170)
[2017-08-22 05:57] LABS: ALBUMIN 2.1 g/dL (3.4-5.0); ANION GAP 11 (6-14); BLOOD UREA NITROGEN 55 mg/dL (7-20); CALCIUM 8.4 mg/dL (8.5-10.1); CARBON DIOXIDE 24 mmol/L (21-32); CHLORIDE 100 mmol/L (98-107); CREATININE 3.3 mg/dL (0.6-1.0); GFR 13.8; GLUCOSE 297 mg/dL (70-99); PHOSPHORUS 4.6 mg/dL (2.6-4.7); POTASSIUM 4.5 mmol/L (3.5-5.1); SODIUM 135 mmol/L (136-145)
[2017-08-22] MEDS: CLOPIDOGREL BISULFATE 75 MG TABLET PO (07:13)
[2017-08-22] MEDS: APIXABAN 5 MG TABLET. PO ×2 (07:13→17:49)
[2017-08-22] MEDS: IPRATRPIUM/ALBUTEROL 0.5/2.5MG 3 ML NEBU. NEB ×4 (08:07→19:45)
[2017-08-22] MEDS: CHOLECALCIFEROL (VITAMIN D3) 1,000 UNIT TABLET PO (08:51)
[2017-08-22] MEDS: OMEGA-3 FATTY ACIDS/FISH OIL 1,000 MG CAPSULE. PO (08:51)
[2017-08-22] MEDS: CYANOCOBALAMIN (VITAMIN B-12) 1,000 MCG TABLET. PO (08:51)
[2017-08-22] MEDS: methylPREDNISolone SOD SUCC PF 125 MG/2 ML VIAL. IV (08:52)
[2017-08-22] MEDS: metOLazone 2.5 MG TABLET PO (08:52)
[2017-08-22] MEDS: amLODIPine BESYLATE 10 MG TABLET PO (08:52)
[2017-08-22] MEDS: ASCORBIC ACID 500 MG TABLET PO (08:52)
[2017-08-22] MEDS: ISOSORBIDE MONONITRATE ER 30 MG TAB.ER.24H PO (08:53)
[2017-08-22] MEDS: LABETALOL HCL 200 MG TABLET PO ×2 (08:53→21:12)
[2017-08-22] MEDS: MAGNESIUM OXIDE 400 MG TABLET PO (08:53)
[2017-08-22] MEDS: ASPIRIN CHEWABLE 81 MG TABLET. PO (08:53)
[2017-08-22] MEDS: FUROSEMIDE 40 MG/4 ML VIAL. IVP ×2 (08:54→15:09)
[2017-08-22] MEDS: POTASSIUM CHLORIDE 10 MEQ TABLET.ER. PO ×2 (08:54→17:50)
[2017-08-22] MEDS: AMIODARONE HCL 200 MG TABLET. PO (09:02)
[2017-08-22] MEDS ORDERED: FUROSEMIDE 20 MG/2 ML VIAL. (11:31)
[2017-08-22] MEDS: ALBUTEROL SULFATE 2.5 MG/3 ML NEBU. NEB (11:31)
[2017-08-22] MEDS: FUROSEMIDE 20 MG/2 ML VIAL. IVP (11:34)
[2017-08-22] MEDS ORDERED: PROPOFOL 20 ML IV (11:55)
[2017-08-22] MEDS ORDERED: LIDOCAINE 2% PF Vial for OR 5 ML VIAL. (11:55)
[2017-08-22] MEDS: LIDOCAINE 2% VISCOUS 15 ML SOLUTION. SWSW (12:00)
[2017-08-22] MEDS: BENZOCAINE ONE 20% MUCOSAL SPRAY. MM (12:00)
[2017-08-22] MEDS: LIDOCAINE 2% TOPICAL JELLY 5GM TUBE. TP (12:00)
[2017-08-22] MEDS: diphenhydrAMINE 50 MG/ML VIAL IVP (18:37)
[2017-08-22] MEDS: FAMOTIDINE 20 MG TABLET. PO (21:12)
[2017-08-22] MEDS: ATORVASTATIN CALCIUM 40 MG TABLET. PO (21:12)
[2017-08-23] MEDS: ALBUTEROL SULFATE 2.5 MG/3 ML NEBU. NEB (00:19)
[2017-08-23 04:11] LABS: ALBUMIN 2.1 g/dL (3.4-5.0); ANION GAP 10 (6-14); BLOOD UREA NITROGEN 59 mg/dL (7-20); CALCIUM 8.3 mg/dL (8.5-10.1); CARBON DIOXIDE 24 mmol/L (21-32); CHLORIDE 100 mmol/L (98-107); CREATININE 3.5 mg/dL (0.6-1.0); GFR 12.9; GLUCOSE 320 mg/dL (70-99); POTASSIUM 3.8 mmol/L (3.5-5.1); SODIUM 134 mmol/L (136-145)
[2017-08-23] MEDS: APIXABAN 5 MG TABLET. PO ×2 (06:31→17:28)
[2017-08-23] MEDS: CLOPIDOGREL BISULFATE 75 MG TABLET PO (06:31)
[2017-08-23] MEDS: IPRATRPIUM/ALBUTEROL 0.5/2.5MG 3 ML NEBU. NEB ×4 (07:58→20:25)
[2017-08-23 08:24] LABS: POC GLUCOSE 211 mg/dL (70-99)
[2017-08-23] MEDS: CYANOCOBALAMIN (VITAMIN B-12) 1,000 MCG TABLET. PO (08:28)
[2017-08-23] MEDS: predniSONE 10 MG TABLET PO (08:28)
[2017-08-23] MEDS: MAGNESIUM OXIDE 400 MG TABLET PO (08:29)
[2017-08-23] MEDS: metOLazone 2.5 MG TABLET PO (08:29)
[2017-08-23] MEDS: OMEGA-3 FATTY ACIDS/FISH OIL 1,000 MG CAPSULE. PO (08:29)
[2017-08-23] MEDS: ASCORBIC ACID 500 MG TABLET PO (08:29)
[2017-08-23] MEDS: ASPIRIN CHEWABLE 81 MG TABLET. PO (08:29)
[2017-08-23] MEDS: CHOLECALCIFEROL (VITAMIN D3) 1,000 UNIT TABLET PO (08:29)
[2017-08-23] MEDS: POTASSIUM CHLORIDE 10 MEQ TABLET.ER. PO ×2 (08:30→17:29)
[2017-08-23] MEDS: LABETALOL HCL 200 MG TABLET PO (08:30)
[2017-08-23] MEDS: amLODIPine BESYLATE 10 MG TABLET PO (08:30)
[2017-08-23] MEDS: FUROSEMIDE 40 MG/4 ML VIAL. IVP ×2 (08:31→12:07)
[2017-08-23] MEDS: ISOSORBIDE MONONITRATE ER 30 MG TAB.ER.24H PO (08:31)
[2017-08-23] MEDS: ANTI-COAG MONITOR BY PHARMACY. MC (08:41)
[2017-08-23] MEDS: LACTOBACILLUS RHAMNOSUS GG 1 CAPSULE. PO ×2 (09:23→20:57)
[2017-08-23] MEDS: FLUCONAZOLE 100 MG TABLET. PO (09:23)
[2017-08-23] MEDS: AMIODARONE HCL 200 MG TABLET. PO (09:24)
[2017-08-23 11:36] LABS: POC GLUCOSE 261 mg/dL (70-99)
[2017-08-23] MEDS: hydrALAZINE 20 MG/ML VIAL. IVP (12:24)
[2017-08-23] MEDS: ATORVASTATIN CALCIUM 40 MG TABLET. PO (20:55)
[2017-08-23] MEDS: FAMOTIDINE 20 MG TABLET. PO (20:57)
[2017-08-23] MEDS: LABETALOL HCL 100 MG TABLET. PO (20:58)
[2017-08-23] MEDS: HYDROcodone/APAP 5/325MG 1 TAB TABLET PO (22:47)
[2017-08-24] MEDS: TEMAZEPAM 15 MG CAPSULE PO ×2 (01:04→20:59)
[2017-08-24 05:05] LABS: ALBUMIN 1.9 g/dL (3.4-5.0); ANION GAP 9 (6-14); BLOOD UREA NITROGEN 61 mg/dL (7-20); CALCIUM 8.4 mg/dL (8.5-10.1); CARBON DIOXIDE 25 mmol/L (21-32); CHLORIDE 102 mmol/L (98-107); CREATININE 3.3 mg/dL (0.6-1.0); GFR 13.8; GLUCOSE 244 mg/dL (70-99); POTASSIUM 3.9 mmol/L (3.5-5.1); SODIUM 136 mmol/L (136-145)
[2017-08-24] MEDS: APIXABAN 5 MG TABLET. PO ×2 (06:18→17:23)
[2017-08-24] MEDS: ANTI-COAG MONITOR BY PHARMACY. MC (07:50)
[2017-08-24] MEDS: IPRATRPIUM/ALBUTEROL 0.5/2.5MG 3 ML NEBU. NEB ×4 (08:02→19:24)
[2017-08-24] MEDS: CYANOCOBALAMIN (VITAMIN B-12) 1,000 MCG TABLET. PO (08:11)
[2017-08-24] MEDS: HYDROcodone/APAP 5/325MG 1 TAB TABLET PO ×3 (08:12→23:48)
[2017-08-24] MEDS: CHOLECALCIFEROL (VITAMIN D3) 1,000 UNIT TABLET PO (08:12)
[2017-08-24] MEDS: FLUCONAZOLE 100 MG TABLET. PO (08:12)
[2017-08-24] MEDS: CLOPIDOGREL BISULFATE 75 MG TABLET PO (08:13)
[2017-08-24] MEDS: OMEGA-3 FATTY ACIDS/FISH OIL 1,000 MG CAPSULE. PO (08:13)
[2017-08-24] MEDS: ASPIRIN CHEWABLE 81 MG TABLET. PO (08:13)
[2017-08-24] MEDS: amLODIPine BESYLATE 10 MG TABLET PO (08:13)
[2017-08-24] MEDS: MAGNESIUM OXIDE 400 MG TABLET PO (08:13)
[2017-08-24] MEDS: FUROSEMIDE 40 MG/4 ML VIAL. IVP ×2 (08:14→16:15)
[2017-08-24] MEDS: POTASSIUM CHLORIDE 10 MEQ TABLET.ER. PO ×2 (08:14→17:23)
[2017-08-24] MEDS: LACTOBACILLUS RHAMNOSUS GG 1 CAPSULE. PO ×2 (08:15→20:56)
[2017-08-24] MEDS: ASCORBIC ACID 500 MG TABLET PO (08:15)
[2017-08-24] MEDS: LABETALOL HCL 100 MG TABLET. PO ×2 (08:15→20:58)
[2017-08-24] MEDS: metOLazone 2.5 MG TABLET PO (08:16)
[2017-08-24] MEDS: AMIODARONE HCL 200 MG TABLET. PO (08:16)
[2017-08-24] MEDS: predniSONE 10 MG TABLET PO (08:17)
[2017-08-24] MEDS: ISOSORBIDE MONONITRATE ER 30 MG TAB.ER.24H PO (08:17)
[2017-08-24] MEDS ORDERED: LIDOCAINE 1% Multi-Dose 20 ML VIAL. INJ (11:15)
[2017-08-24] MEDS: hydrALAZINE 20 MG/ML VIAL. IVP ×2 (12:32→19:54)
[2017-08-24] MEDS: LIDOCAINE 1% PF 30 ML VIAL. INJ (13:54)
[2017-08-24] MEDS: methylPREDNISolone ACETATE 80 MG/ML VIAL. INJ (13:54)
[2017-08-24] MEDS: IRON SUCROSE COMPLEX 200 MG in IV NORMAL SALINE 100ML 100 ML IV (17:23)
[2017-08-24] MEDS: IRON SUCROSE COMPLEX 200 MG in TOTAL VOLUME SYRINGE 10 ML IVP (17:39)
[2017-08-24] MEDS: ATORVASTATIN CALCIUM 40 MG TABLET. PO (20:57)
[2017-08-24] MEDS: FAMOTIDINE 20 MG TABLET. PO (20:58)
[2017-08-24] MEDS: DARBEPOETIN ALFA 60 MCG/0.3 ML DISP.SYRIN. SQ (21:27)
[2017-08-25 05:23] LABS: HEMATOCRIT 27.6 % (36.0-47.0); HEMOGLOBIN 9.5 g/dL (12.0-15.5); MEAN CORPUSCULAR HEMOGLOBIN 27 pg (25-35); MEAN CORPUSCULAR HGB CONC 34 g/dL (31-37); MEAN CORPUSCULAR VOLUME 78 fL (79-100); PLATELET COUNT 379 x10^3/uL (140-400); RED BLOOD COUNT 3.56 x10^6/uL (3.50-5.40); RED CELL DISTRIBUTION WIDTH 14.7 % (11.5-14.5); WHITE BLOOD COUNT 8.4 x10^3/uL (4.0-11.0)
[2017-08-25 05:51] LABS: ALBUMIN 1.9 g/dL (3.4-5.0); ANION GAP 13 (6-14); BLOOD UREA NITROGEN 69 mg/dL (7-20); CALCIUM 8.4 mg/dL (8.5-10.1); CARBON DIOXIDE 24 mmol/L (21-32); CHLORIDE 100 mmol/L (98-107); CREATININE 3.3 mg/dL (0.6-1.0); GFR 13.8; GLUCOSE 288 mg/dL (70-99); POTASSIUM 4.5 mmol/L (3.5-5.1); SODIUM 137 mmol/L (136-145)
[2017-08-25] MEDS: APIXABAN 5 MG TABLET. PO ×2 (06:38→17:04)
[2017-08-25] MEDS: CLOPIDOGREL BISULFATE 75 MG TABLET PO (06:38)
[2017-08-25] MEDS: IPRATRPIUM/ALBUTEROL 0.5/2.5MG 3 ML NEBU. NEB ×4 (07:32→20:22)
[2017-08-25] MEDS: predniSONE 10 MG TABLET PO (08:16)
[2017-08-25] MEDS: CYANOCOBALAMIN (VITAMIN B-12) 1,000 MCG TABLET. PO (08:16)
[2017-08-25] MEDS: ISOSORBIDE MONONITRATE ER 30 MG TAB.ER.24H PO (08:17)
[2017-08-25] MEDS: MAGNESIUM OXIDE 400 MG TABLET PO (08:18)
[2017-08-25] MEDS: CHOLECALCIFEROL (VITAMIN D3) 1,000 UNIT TABLET PO (08:19)
[2017-08-25] MEDS: ASCORBIC ACID 500 MG TABLET PO (08:19)
[2017-08-25] MEDS: AMIODARONE HCL 200 MG TABLET. PO (08:19)
[2017-08-25] MEDS: ASPIRIN CHEWABLE 81 MG TABLET. PO (08:19)
[2017-08-25] MEDS: LACTOBACILLUS RHAMNOSUS GG 1 CAPSULE. PO ×2 (08:20→20:46)
[2017-08-25] MEDS: POTASSIUM CHLORIDE 10 MEQ TABLET.ER. PO ×2 (08:20→17:04)
[2017-08-25] MEDS: metOLazone 2.5 MG TABLET PO (08:20)
[2017-08-25] MEDS: LABETALOL HCL 100 MG TABLET. PO ×2 (08:20→20:47)
[2017-08-25] MEDS: FLUCONAZOLE 100 MG TABLET. PO (08:22)
[2017-08-25] MEDS: FUROSEMIDE 40 MG/4 ML VIAL. IVP ×2 (08:23→14:55)
[2017-08-25] MEDS: amLODIPine BESYLATE 10 MG TABLET PO (08:23)
[2017-08-25] MEDS: OMEGA-3 FATTY ACIDS/FISH OIL 1,000 MG CAPSULE. PO (08:23)
[2017-08-25] MEDS: HYDROcodone/APAP 5/325MG 1 TAB TABLET PO ×2 (14:56→20:48)
[2017-08-25] MEDS: SEVELAMER CARBONATE 800 MG TABLET. PO (17:03)
[2017-08-25] MEDS: ATORVASTATIN CALCIUM 40 MG TABLET. PO (20:47)
[2017-08-25] MEDS: FAMOTIDINE 20 MG TABLET. PO (20:47)
[2017-08-25] MEDS: TEMAZEPAM 15 MG CAPSULE PO (20:47)
[2017-08-26 05:29] LABS: HEMATOCRIT 27.8 % (36.0-47.0); HEMOGLOBIN 9.4 g/dL (12.0-15.5); MEAN CORPUSCULAR HEMOGLOBIN 27 pg (25-35); MEAN CORPUSCULAR HGB CONC 34 g/dL (31-37); MEAN CORPUSCULAR VOLUME 78 fL (79-100); PLATELET COUNT 435 x10^3/uL (140-400); RED BLOOD COUNT 3.56 x10^6/uL (3.50-5.40); RED CELL DISTRIBUTION WIDTH 14.9 % (11.5-14.5); WHITE BLOOD COUNT 11.3 x10^3/uL (4.0-11.0)
[2017-08-26 05:58] LABS: ALK PHOS 72 U/L (46-116); ALT (SGPT) 14 U/L (14-59); ANION GAP 13 (6-14); AST (SGOT) 13 U/L (15-37); BLOOD UREA NITROGEN 78 mg/dL (7-20); CALCIUM 8.9 mg/dL (8.5-10.1); CARBON DIOXIDE 24 mmol/L (21-32); CHLORIDE 100 mmol/L (98-107); CREATININE 3.3 mg/dL (0.6-1.0); DIRECT BILIRUBIN 0.1 mg/dL (0.0-0.2); GFR 13.8; GLUCOSE 234 mg/dL (70-99); PHOSPHORUS 5.3 mg/dL (2.6-4.7); POTASSIUM 4.4 mmol/L (3.5-5.1); SODIUM 137 mmol/L (136-145); TOTAL BILIRUBIN 0.5 mg/dL (0.2-1.0); TOTAL PROTEIN 6.3 g/dL (6.4-8.2)
[2017-08-26] MEDS: IPRATRPIUM/ALBUTEROL 0.5/2.5MG 3 ML NEBU. NEB ×4 (07:30→20:32)
[2017-08-26] MEDS ORDERED: LIDOCAINE WITH 8.4% SOD BICARB 3 ML DISP.SYRIN. (08:27)
[2017-08-26] MEDS ORDERED: HEPARIN for IV BOLUS 10,000 UNIT/10 ML VIAL. (08:28)
[2017-08-26] MEDS: LIDOCAINE WITH 8.4% SOD BICARB 3 ML DISP.SYRIN. IJ (09:00)
[2017-08-26] MEDS: MAGNESIUM OXIDE 400 MG TABLET PO (10:13)
[2017-08-26] MEDS: ISOSORBIDE MONONITRATE ER 30 MG TAB.ER.24H PO (10:13)
[2017-08-26] MEDS: SEVELAMER CARBONATE 800 MG TABLET. PO ×3 (10:14→18:23)
[2017-08-26] MEDS: OMEGA-3 FATTY ACIDS/FISH OIL 1,000 MG CAPSULE. PO (10:14)
[2017-08-26] MEDS: CYANOCOBALAMIN (VITAMIN B-12) 1,000 MCG TABLET. PO (10:14)
[2017-08-26] MEDS: APIXABAN 5 MG TABLET. PO ×2 (10:15→18:23)
[2017-08-26] MEDS: predniSONE 10 MG TABLET PO (10:15)
[2017-08-26] MEDS: CLOPIDOGREL BISULFATE 75 MG TABLET PO (10:15)
[2017-08-26] MEDS: ASCORBIC ACID 500 MG TABLET PO (10:15)
[2017-08-26] MEDS: ASPIRIN CHEWABLE 81 MG TABLET. PO (10:15)
[2017-08-26] MEDS: CHOLECALCIFEROL (VITAMIN D3) 1,000 UNIT TABLET PO (10:15)
[2017-08-26] MEDS: LACTOBACILLUS RHAMNOSUS GG 1 CAPSULE. PO ×2 (10:16→20:33)
[2017-08-26] MEDS: LABETALOL HCL 100 MG TABLET. PO ×2 (10:16→20:33)
[2017-08-26] MEDS: FLUCONAZOLE 100 MG TABLET. PO (10:16)
[2017-08-26] MEDS: POTASSIUM CHLORIDE 10 MEQ TABLET.ER. PO ×2 (10:17→18:23)
[2017-08-26] MEDS: AMIODARONE HCL 200 MG TABLET. PO (10:17)
[2017-08-26] MEDS: metOLazone 2.5 MG TABLET PO (10:17)
[2017-08-26] MEDS: FUROSEMIDE 40 MG/4 ML VIAL. IVP ×2 (10:18→14:17)
[2017-08-26] MEDS: amLODIPine BESYLATE 10 MG TABLET PO (10:18)
[2017-08-26] MEDS: HYDROcodone/APAP 5/325MG 1 TAB TABLET PO ×2 (12:35→20:33)
[2017-08-26] MEDS: ANTI-COAG MONITOR BY PHARMACY. MC (14:11)
[2017-08-26] MEDS ORDERED: IV NORMAL SALINE 1000ML BAG 1,000 ML IV ×2 (14:37)
[2017-08-26] MEDS ORDERED: DIALYSIS PATIENT. MC ×2 (14:45)
[2017-08-26] MEDS: ATORVASTATIN CALCIUM 40 MG TABLET. PO (20:33)
[2017-08-26] MEDS: TEMAZEPAM 15 MG CAPSULE PO (20:33)
[2017-08-26] MEDS: FAMOTIDINE 20 MG TABLET. PO (20:33)
[2017-08-27 05:52] LABS: ALBUMIN 1.9 g/dL (3.4-5.0); ANION GAP 8 (6-14); BLOOD UREA NITROGEN 49 mg/dL (7-20); CALCIUM 8.5 mg/dL (8.5-10.1); CARBON DIOXIDE 28 mmol/L (21-32); CHLORIDE 101 mmol/L (98-107); CREATININE 2.5 mg/dL (0.6-1.0); GLUCOSE 209 mg/dL (70-99); PHOSPHORUS 3.9 mg/dL (2.6-4.7); POTASSIUM 4.4 mmol/L (3.5-5.1); SODIUM 137 mmol/L (136-145)
[2017-08-27 07:38] LABS: HCV ANTIBODY <0.1 s/co ratio (0.0-0.9); HEP A IGM ABDY Negative (Negative); HEP B SURFACE ABDY Non Reactive (.); HEP B SURFACE AG Negative (Negative)
[2017-08-27] MEDS: IPRATRPIUM/ALBUTEROL 0.5/2.5MG 3 ML NEBU. NEB ×4 (07:54→19:38)
[2017-08-27] MEDS: SEVELAMER CARBONATE 800 MG TABLET. PO ×3 (08:00→17:21)
[2017-08-27] MEDS: ANTI-COAG MONITOR BY PHARMACY. MC (08:50)
[2017-08-27] MEDS: FUROSEMIDE 40 MG/4 ML VIAL. IVP ×2 (09:00→15:43)
[2017-08-27] MEDS: POTASSIUM CHLORIDE 10 MEQ TABLET.ER. PO ×2 (09:00→17:22)
[2017-08-27] MEDS: LABETALOL HCL 100 MG TABLET. PO ×2 (09:00→21:46)
[2017-08-27] MEDS ORDERED: IV NORMAL SALINE 1000ML BAG 1,000 ML IV ×2 (09:33)
[2017-08-27] MEDS ORDERED: DIALYSIS PATIENT. MC ×2 (09:45)
[2017-08-27] MEDS ORDERED: 0.9 % SODIUM CHLORIDE 10 ML DISP.SYRIN. IV ×2 (09:45)
[2017-08-27] MEDS ORDERED: ALBUMIN HUMAN 25% 200 ML IV (09:45)
[2017-08-27] MEDS: LACTOBACILLUS RHAMNOSUS GG 1 CAPSULE. PO ×2 (12:37→21:45)
[2017-08-27] MEDS: AMIODARONE HCL 200 MG TABLET. PO (12:38)
[2017-08-27] MEDS: CYANOCOBALAMIN (VITAMIN B-12) 1,000 MCG TABLET. PO (12:39)
[2017-08-27] MEDS: predniSONE 10 MG TABLET PO (12:39)
[2017-08-27] MEDS: ASCORBIC ACID 500 MG TABLET PO (12:40)
[2017-08-27] MEDS: metOLazone 2.5 MG TABLET PO (12:40)
[2017-08-27] MEDS: CHOLECALCIFEROL (VITAMIN D3) 1,000 UNIT TABLET PO (12:40)
[2017-08-27] MEDS: MAGNESIUM OXIDE 400 MG TABLET PO (12:40)
[2017-08-27] MEDS: amLODIPine BESYLATE 10 MG TABLET PO (12:46)
[2017-08-27] MEDS: ISOSORBIDE MONONITRATE ER 30 MG TAB.ER.24H PO (12:47)
[2017-08-27] MEDS: CLOPIDOGREL BISULFATE 75 MG TABLET PO (12:48)
[2017-08-27] MEDS: ASPIRIN CHEWABLE 81 MG TABLET. PO (12:48)
[2017-08-27] MEDS: OMEGA-3 FATTY ACIDS/FISH OIL 1,000 MG CAPSULE. PO (12:48)
[2017-08-27] MEDS: FLUCONAZOLE 100 MG TABLET. PO (12:48)
[2017-08-27] MEDS: APIXABAN 5 MG TABLET. PO ×2 (12:48→17:22)
[2017-08-27] MEDS: ATORVASTATIN CALCIUM 40 MG TABLET. PO (21:45)
[2017-08-27] MEDS: FAMOTIDINE 20 MG TABLET. PO (21:45)
[2017-08-27] MEDS: TEMAZEPAM 15 MG CAPSULE PO (22:39)
[2017-08-28] MEDS: APIXABAN 5 MG TABLET. PO ×2 (06:14→17:33)
[2017-08-28] MEDS: CLOPIDOGREL BISULFATE 75 MG TABLET PO (06:14)
[2017-08-28 07:03] LABS: ALBUMIN 1.8 g/dL (3.4-5.0); ANION GAP 9 (6-14); BLOOD UREA NITROGEN 41 mg/dL (7-20); CALCIUM 8.1 mg/dL (8.5-10.1); CARBON DIOXIDE 27 mmol/L (21-32); CHLORIDE 102 mmol/L (98-107); CREATININE 2.3 mg/dL (0.6-1.0); GFR 20.9; GLUCOSE 210 mg/dL (70-99); PHOSPHORUS 3.7 mg/dL (2.6-4.7); POTASSIUM 4.2 mmol/L (3.5-5.1); SODIUM 138 mmol/L (136-145)
[2017-08-28] MEDS: predniSONE 10 MG TABLET PO ×2 (08:00→09:24)
[2017-08-28] MEDS: IPRATRPIUM/ALBUTEROL 0.5/2.5MG 3 ML NEBU. NEB ×4 (08:08→19:36)
[2017-08-28] MEDS: LACTOBACILLUS RHAMNOSUS GG 1 CAPSULE. PO ×2 (09:22→20:48)
[2017-08-28] MEDS: metOLazone 2.5 MG TABLET PO (09:22)
[2017-08-28] MEDS: POTASSIUM CHLORIDE 10 MEQ TABLET.ER. PO ×2 (09:22→17:33)
[2017-08-28] MEDS: FUROSEMIDE 40 MG/4 ML VIAL. IVP ×2 (09:22→13:46)
[2017-08-28] MEDS: MAGNESIUM OXIDE 400 MG TABLET PO (09:22)
[2017-08-28] MEDS: ISOSORBIDE MONONITRATE ER 30 MG TAB.ER.24H PO (09:23)
[2017-08-28] MEDS: OMEGA-3 FATTY ACIDS/FISH OIL 1,000 MG CAPSULE. PO (09:23)
[2017-08-28] MEDS: CHOLECALCIFEROL (VITAMIN D3) 1,000 UNIT TABLET PO (09:23)
[2017-08-28] MEDS: CYANOCOBALAMIN (VITAMIN B-12) 1,000 MCG TABLET. PO (09:24)
[2017-08-28] MEDS: ASPIRIN CHEWABLE 81 MG TABLET. PO (09:24)
[2017-08-28] MEDS: amLODIPine BESYLATE 10 MG TABLET PO (09:25)
[2017-08-28] MEDS: LABETALOL HCL 100 MG TABLET. PO ×2 (09:25→20:50)
[2017-08-28] MEDS: AMIODARONE HCL 200 MG TABLET. PO (09:25)
[2017-08-28] MEDS: SEVELAMER CARBONATE 800 MG TABLET. PO ×3 (09:26→17:33)
[2017-08-28] MEDS: ASCORBIC ACID 500 MG TABLET PO (09:26)
[2017-08-28] MEDS: ATORVASTATIN CALCIUM 40 MG TABLET. PO (20:48)
[2017-08-28] MEDS: TEMAZEPAM 15 MG CAPSULE PO (23:08)
[2017-08-29] MEDS: CLOPIDOGREL BISULFATE 75 MG TABLET PO (06:16)
[2017-08-29] MEDS: APIXABAN 5 MG TABLET. PO ×2 (06:16→17:40)
[2017-08-29] MEDS: IPRATRPIUM/ALBUTEROL 0.5/2.5MG 3 ML NEBU. NEB ×4 (07:41→20:43)
[2017-08-29] MEDS: hydrALAZINE 20 MG/ML VIAL. IVP (07:47)
[2017-08-29] MEDS: SEVELAMER CARBONATE 800 MG TABLET. PO ×3 (08:00→17:40)
[2017-08-29] MEDS: FUROSEMIDE 40 MG/4 ML VIAL. IVP (09:00)
[2017-08-29 09:33] LABS: ADD MAN DIFF? NO
[2017-08-29 09:43] LABS: ANION GAP 7 (6-14); BLOOD UREA NITROGEN 55 mg/dL (7-20); CALCIUM 8.4 mg/dL (8.5-10.1); CARBON DIOXIDE 29 mmol/L (21-32); CHLORIDE 102 mmol/L (98-107); CREATININE 2.8 mg/dL (0.6-1.0); GFR 16.7; GLUCOSE 170 mg/dL (70-99); SODIUM 138 mmol/L (136-145)
[2017-08-29 09:57] LABS: BASO % 0 % (0-3); EOS # 0.1 x10^3/uL (0.0-0.7); EOS % 1 % (0-3); HEMATOCRIT 25.6 % (36.0-47.0); HEMOGLOBIN 8.7 g/dL (12.0-15.5); LYMPH # 1.7 x10^3/uL (1.0-4.8); LYMPH % 13 % (24-48); MEAN CORPUSCULAR HEMOGLOBIN 27 pg (25-35); MEAN CORPUSCULAR HGB CONC 34 g/dL (31-37); MEAN CORPUSCULAR VOLUME 78 fL (79-100); MONO % 8 % (0-9); NEUT # 10.7 x10^3uL (1.8-7.7); NEUT % 79 % (31-73); PLATELET COUNT 403 x10^3/uL (140-400); RED BLOOD COUNT 3.28 x10^6/uL (3.50-5.40); RED CELL DISTRIBUTION WIDTH 14.9 % (11.5-14.5); WHITE BLOOD COUNT 13.6 x10^3/uL (4.0-11.0)
[2017-08-29] MEDS: amLODIPine BESYLATE 10 MG TABLET PO (13:28)
[2017-08-29] MEDS: CYANOCOBALAMIN (VITAMIN B-12) 1,000 MCG TABLET. PO (13:28)
[2017-08-29] MEDS: OMEGA-3 FATTY ACIDS/FISH OIL 1,000 MG CAPSULE. PO (13:29)
[2017-08-29] MEDS: LABETALOL HCL 100 MG TABLET. PO ×2 (13:29→21:17)
[2017-08-29] MEDS: FUROSEMIDE 40 MG TABLET. PO (13:30)
[2017-08-29] MEDS: MAGNESIUM OXIDE 400 MG TABLET PO (13:30)
[2017-08-29] MEDS: AMIODARONE HCL 200 MG TABLET. PO (13:30)
[2017-08-29] MEDS: predniSONE 10 MG TABLET PO (13:31)
[2017-08-29] MEDS: ASPIRIN CHEWABLE 81 MG TABLET. PO (13:31)
[2017-08-29] MEDS: ISOSORBIDE MONONITRATE ER 30 MG TAB.ER.24H PO (13:31)
[2017-08-29] MEDS: ASCORBIC ACID 500 MG TABLET PO (13:32)
[2017-08-29] MEDS: LACTOBACILLUS RHAMNOSUS GG 1 CAPSULE. PO ×2 (13:32→21:14)
[2017-08-29] MEDS: CHOLECALCIFEROL (VITAMIN D3) 1,000 UNIT TABLET PO (13:32)
[2017-08-29] MEDS: POTASSIUM CHLORIDE 10 MEQ TABLET.ER. PO ×2 (13:32→17:40)
[2017-08-29] MEDS: metOLazone 2.5 MG TABLET PO (13:32)
[2017-08-29] MEDS: HYDROcodone/APAP 5/325MG 1 TAB TABLET PO (13:43)
[2017-08-29] MEDS: ONDANSETRON PF 4 MG/2 ML VIAL. IV (16:12)
[2017-08-29] MEDS: ATORVASTATIN CALCIUM 40 MG TABLET. PO (21:14)
[2017-08-29] MEDS: FAMOTIDINE 20 MG TABLET. PO (21:15)
[2017-08-29] MEDS: TEMAZEPAM 15 MG CAPSULE PO (23:46)
[2017-08-30] MEDS: IPRATRPIUM/ALBUTEROL 0.5/2.5MG 3 ML NEBU. NEB ×4 (07:12→19:52)
[2017-08-30] MEDS: MAGNESIUM OXIDE 400 MG TABLET PO (11:00)
[2017-08-30] MEDS: OMEGA-3 FATTY ACIDS/FISH OIL 1,000 MG CAPSULE. PO (11:01)
[2017-08-30] MEDS: SEVELAMER CARBONATE 800 MG TABLET. PO ×3 (11:01→18:23)
[2017-08-30] MEDS: ASCORBIC ACID 500 MG TABLET PO (11:02)
[2017-08-30] MEDS: CYANOCOBALAMIN (VITAMIN B-12) 1,000 MCG TABLET. PO (11:02)
[2017-08-30] MEDS: LACTOBACILLUS RHAMNOSUS GG 1 CAPSULE. PO ×2 (11:02→21:52)
[2017-08-30] MEDS: FUROSEMIDE 40 MG TABLET. PO (11:02)
[2017-08-30] MEDS: LABETALOL HCL 100 MG TABLET. PO ×2 (11:03→21:53)
[2017-08-30] MEDS: predniSONE 10 MG TABLET PO (11:03)
[2017-08-30] MEDS: ASPIRIN CHEWABLE 81 MG TABLET. PO (11:04)
[2017-08-30] MEDS: amLODIPine BESYLATE 10 MG TABLET PO (11:04)
[2017-08-30] MEDS: POTASSIUM CHLORIDE 10 MEQ TABLET.ER. PO ×2 (11:04→18:19)
[2017-08-30] MEDS: CHOLECALCIFEROL (VITAMIN D3) 1,000 UNIT TABLET PO (11:05)
[2017-08-30] MEDS: APIXABAN 5 MG TABLET. PO ×2 (11:05→18:19)
[2017-08-30] MEDS: metOLazone 2.5 MG TABLET PO (11:05)
[2017-08-30] MEDS: ISOSORBIDE MONONITRATE ER 30 MG TAB.ER.24H PO (11:06)
[2017-08-30] MEDS: CLOPIDOGREL BISULFATE 75 MG TABLET PO (11:12)
[2017-08-30] MEDS: AMIODARONE HCL 200 MG TABLET. PO (11:21)
[2017-08-30] MEDS: ANTI-COAG MONITOR BY PHARMACY. MC (16:18)
[2017-08-30 18:15] LABS: ANION GAP 7 (6-14); BLOOD UREA NITROGEN 46 mg/dL (7-20); CALCIUM 8.1 mg/dL (8.5-10.1); CARBON DIOXIDE 29 mmol/L (21-32); CHLORIDE 100 mmol/L (98-107); CREATININE 2.6 mg/dL (0.6-1.0); GFR 18.1; GLUCOSE 386 mg/dL (70-99); POTASSIUM 5.2 mmol/L (3.5-5.1); SODIUM 136 mmol/L (136-145)
[2017-08-30 18:19] LABS: PHOSPHORUS 3.7 mg/dL (2.6-4.7)
[2017-08-30] MEDS: ATORVASTATIN CALCIUM 40 MG TABLET. PO (21:52)
[2017-08-30] MEDS: TEMAZEPAM 15 MG CAPSULE PO (23:17)
[2017-08-31] MEDS: CLOPIDOGREL BISULFATE 75 MG TABLET PO (07:00)
[2017-08-31] MEDS: APIXABAN 5 MG TABLET. PO ×2 (07:00→17:14)
[2017-08-31] MEDS: IPRATRPIUM/ALBUTEROL 0.5/2.5MG 3 ML NEBU. NEB ×4 (07:46→19:20)
[2017-08-31] MEDS: ASPIRIN CHEWABLE 81 MG TABLET. PO (08:00)
[2017-08-31] MEDS ORDERED: IV NORMAL SALINE 1000ML BAG 1,000 ML IV ×2 (08:22)
[2017-08-31] MEDS ORDERED: 0.9 % SODIUM CHLORIDE 10 ML DISP.SYRIN. IV ×2 (08:30)
[2017-08-31] MEDS ORDERED: DIALYSIS PATIENT. MC ×2 (08:30)
[2017-08-31] MEDS: MAGNESIUM OXIDE 400 MG TABLET PO (09:00)
[2017-08-31] MEDS: SEVELAMER CARBONATE 800 MG TABLET. PO ×3 (12:00→17:14)
[2017-08-31 13:16] LABS: CALCIUM PTH 7.8 mg/dL (8.7-10.3); CREATININE PTH 2.08 mg/dL (0.57-1.00); PHOSPHORUS PTH 3.5 mg/dL (2.5-4.5); PTH INTACT 133 pg/mL (15-65); eGFR AFRICAN-AMER 27 (>59); eGFR NON AFRICAN-AMER 23 (>59)
[2017-08-31] MEDS: AMIODARONE HCL 200 MG TABLET. PO (14:08)
[2017-08-31] MEDS: POTASSIUM CHLORIDE 10 MEQ TABLET.ER. PO ×2 (14:08→17:14)
[2017-08-31] MEDS: CHOLECALCIFEROL (VITAMIN D3) 1,000 UNIT TABLET PO (14:08)
[2017-08-31] MEDS: CYANOCOBALAMIN (VITAMIN B-12) 1,000 MCG TABLET. PO (14:09)
[2017-08-31] MEDS: predniSONE 20 MG TABLET PO (14:10)
[2017-08-31] MEDS: amLODIPine BESYLATE 10 MG TABLET PO (14:10)
[2017-08-31] MEDS: OMEGA-3 FATTY ACIDS/FISH OIL 1,000 MG CAPSULE. PO (14:10)
[2017-08-31] MEDS: FUROSEMIDE 40 MG TABLET. PO (14:10)
[2017-08-31] MEDS: ASCORBIC ACID 500 MG TABLET PO (14:10)
[2017-08-31] MEDS: LACTOBACILLUS RHAMNOSUS GG 1 CAPSULE. PO ×2 (14:11→21:09)
[2017-08-31] MEDS: ISOSORBIDE MONONITRATE ER 30 MG TAB.ER.24H PO (14:11)
[2017-08-31] MEDS: LABETALOL HCL 100 MG TABLET. PO ×2 (14:12→21:11)
[2017-08-31] MEDS: ATORVASTATIN CALCIUM 40 MG TABLET. PO (21:09)
[2017-08-31] MEDS: FAMOTIDINE 20 MG TABLET. PO (21:10)
[2017-08-31] MEDS: DARBEPOETIN ALFA 60 MCG/0.3 ML DISP.SYRIN. SQ (21:14)
[2017-08-31] MEDS: TEMAZEPAM 15 MG CAPSULE PO (23:25)
[2017-09-01] MEDS: APIXABAN 5 MG TABLET. PO ×2 (06:55→17:12)
[2017-09-01] MEDS: CLOPIDOGREL BISULFATE 75 MG TABLET PO (06:55)
[2017-09-01] MEDS: IPRATRPIUM/ALBUTEROL 0.5/2.5MG 3 ML NEBU. NEB ×2 (07:43→11:23)
[2017-09-01] MEDS: SEVELAMER CARBONATE 800 MG TABLET. PO ×3 (08:28→17:18)
[2017-09-01] MEDS: CYANOCOBALAMIN (VITAMIN B-12) 1,000 MCG TABLET. PO (08:28)
[2017-09-01] MEDS: predniSONE 20 MG TABLET PO (08:29)
[2017-09-01] MEDS: LACTOBACILLUS RHAMNOSUS GG 1 CAPSULE. PO ×2 (08:29→21:42)
[2017-09-01] MEDS: OMEGA-3 FATTY ACIDS/FISH OIL 1,000 MG CAPSULE. PO (08:29)
[2017-09-01] MEDS: LABETALOL HCL 100 MG TABLET. PO ×2 (08:31→21:46)
[2017-09-01] MEDS: ASCORBIC ACID 500 MG TABLET PO (08:32)
[2017-09-01] MEDS: amLODIPine BESYLATE 10 MG TABLET PO (08:32)
[2017-09-01] MEDS: ISOSORBIDE MONONITRATE ER 30 MG TAB.ER.24H PO (08:32)
[2017-09-01] MEDS: ASPIRIN CHEWABLE 81 MG TABLET. PO (08:32)
[2017-09-01] MEDS: POTASSIUM CHLORIDE 10 MEQ TABLET.ER. PO (08:32)
[2017-09-01] MEDS: AMIODARONE HCL 200 MG TABLET. PO (08:33)
[2017-09-01] MEDS: CHOLECALCIFEROL (VITAMIN D3) 1,000 UNIT TABLET PO (08:34)
[2017-09-01] MEDS: FUROSEMIDE 40 MG TABLET. PO (08:38)
[2017-09-01] MEDS: ANTI-COAG MONITOR BY PHARMACY. MC (12:59)
[2017-09-01] MEDS: ATORVASTATIN CALCIUM 40 MG TABLET. PO (21:42)
[2017-09-01] MEDS: TEMAZEPAM 15 MG CAPSULE PO (23:10)
[2017-09-02] MEDS: CLOPIDOGREL BISULFATE 75 MG TABLET PO (05:39)
[2017-09-02] MEDS: APIXABAN 5 MG TABLET. PO ×2 (05:39→18:00)
[2017-09-02 08:31] LABS: HEMATOCRIT 26.4 % (36.0-47.0); HEMOGLOBIN 9.2 g/dL (12.0-15.5); MEAN CORPUSCULAR HEMOGLOBIN 27 pg (25-35); MEAN CORPUSCULAR HGB CONC 35 g/dL (31-37); MEAN CORPUSCULAR VOLUME 79 fL (79-100); PLATELET COUNT 337 x10^3/uL (140-400); RED BLOOD COUNT 3.36 x10^6/uL (3.50-5.40); WHITE BLOOD COUNT 10.8 x10^3/uL (4.0-11.0)
[2017-09-02] MEDS: LABETALOL HCL 100 MG TABLET. PO ×2 (08:39→21:27)
[2017-09-02] MEDS: OMEGA-3 FATTY ACIDS/FISH OIL 1,000 MG CAPSULE. PO (08:41)
[2017-09-02] MEDS: AMIODARONE HCL 200 MG TABLET. PO (08:41)
[2017-09-02] MEDS: LACTOBACILLUS RHAMNOSUS GG 1 CAPSULE. PO ×2 (08:41→21:26)
[2017-09-02] MEDS: predniSONE 20 MG TABLET PO (08:42)
[2017-09-02] MEDS: FUROSEMIDE 40 MG TABLET. PO (08:43)
[2017-09-02] MEDS: amLODIPine BESYLATE 10 MG TABLET PO (08:44)
[2017-09-02] MEDS: ISOSORBIDE MONONITRATE ER 30 MG TAB.ER.24H PO (08:50)
[2017-09-02] MEDS: ANTI-COAG MONITOR BY PHARMACY. MC (11:17)
[2017-09-02] MEDS: SEVELAMER CARBONATE 800 MG TABLET. PO ×3 (12:00→17:00)
[2017-09-02] MEDS ORDERED: LIDOCAINE 2%/EPI 1:100,000 20 ML VIAL. (14:37)
[2017-09-02] MEDS ORDERED: HEPARIN for IV BOLUS 10,000 UNIT/10 ML VIAL. (14:37)
[2017-09-02] MEDS ORDERED: MIDAZOLAM HCL/PF 2 MG/2 ML VIAL. (14:40)
[2017-09-02] MEDS ORDERED: fentaNYL PF VIAL 100 MCG/2 ML VIAL (14:40)
[2017-09-02] MEDS ORDERED: VANCOMYCIN 1GM IVPB FOR OMNI 250 ML (14:40)
[2017-09-02] MEDS: MIDAZOLAM HCL/PF 2 MG/2 ML VIAL. IV (15:30)
[2017-09-02] MEDS: LIDOCAINE 2%/EPI 1:100,000 20 ML VIAL. IJ (15:30)
[2017-09-02] MEDS: fentaNYL PF VIAL 100 MCG/2 ML VIAL IV (15:30)
[2017-09-02] MEDS: VANCOMYCIN 1GM IVPB FOR OMNI 250 ML IV (15:32)
[2017-09-02] MEDS: CHOLECALCIFEROL (VITAMIN D3) 1,000 UNIT TABLET PO (16:54)
[2017-09-02] MEDS: CYANOCOBALAMIN (VITAMIN B-12) 1,000 MCG TABLET. PO (16:54)
[2017-09-02] MEDS: ASCORBIC ACID 500 MG TABLET PO (16:56)
[2017-09-02] MEDS: ASPIRIN CHEWABLE 81 MG TABLET. PO (16:56)
[2017-09-02] MEDS: FAMOTIDINE 20 MG TABLET. PO (21:26)
[2017-09-02] MEDS: ATORVASTATIN CALCIUM 40 MG TABLET. PO (21:26)
[2017-09-02] MEDS: TEMAZEPAM 15 MG CAPSULE PO (23:38)
[2017-09-03] MEDS: CLOPIDOGREL BISULFATE 75 MG TABLET PO (06:34)
[2017-09-03] MEDS: APIXABAN 5 MG TABLET. PO (06:34)
[2017-09-03] MEDS: SEVELAMER CARBONATE 800 MG TABLET. PO ×2 (08:00→14:03)
[2017-09-03] MEDS ORDERED: IV NORMAL SALINE 1000ML BAG 1,000 ML IV ×2 (08:06)
[2017-09-03] MEDS ORDERED: DIALYSIS PATIENT. MC ×2 (08:15)
[2017-09-03] MEDS: ANTI-COAG MONITOR BY PHARMACY. MC (09:39)
[2017-09-03] MEDS: LACTOBACILLUS RHAMNOSUS GG 1 CAPSULE. PO (14:02)
[2017-09-03] MEDS: OMEGA-3 FATTY ACIDS/FISH OIL 1,000 MG CAPSULE. PO (14:02)
[2017-09-03] MEDS: CYANOCOBALAMIN (VITAMIN B-12) 1,000 MCG TABLET. PO (14:03)
[2017-09-03] MEDS: ASPIRIN CHEWABLE 81 MG TABLET. PO (14:04)
[2017-09-03] MEDS: ISOSORBIDE MONONITRATE ER 30 MG TAB.ER.24H PO (14:05)
[2017-09-03] MEDS: ASCORBIC ACID 500 MG TABLET PO (14:05)
[2017-09-03] MEDS: amLODIPine BESYLATE 10 MG TABLET PO (14:05)
[2017-09-03] MEDS: CHOLECALCIFEROL (VITAMIN D3) 1,000 UNIT TABLET PO (14:06)
[2017-09-03] MEDS: AMIODARONE HCL 200 MG TABLET. PO (14:07)
[2017-09-03] MEDS: LABETALOL HCL 100 MG TABLET. PO (14:10)
== END 2017-09-03 17:30 | disposition home or self-care (01) | DRG 673 ==
LOC: ER 08:51 → 2 NORTH 10:33
PROC: 02H633Z Insertion of Infusion Device into Right Atrium, Percutaneous Approach (ICD-10-PCS; principal; 2017-08-26)
PROC: B2141ZZ Fluoroscopy of Right Heart using Low Osmolar Contrast (ICD-10-PCS; 2017-08-26)
PROC: B244ZZZ Ultrasonography of Right Heart (ICD-10-PCS; 2017-08-26)
PROC: 5A1D70Z Performance of Urinary Filtration, Intermittent, Less than 6 Hours Per Day (ICD-10-PCS; 2017-08-26)
PROC: 5A1D70Z Performance of Urinary Filtration, Intermittent, Less than 6 Hours Per Day (ICD-10-PCS; 2017-08-27)
PROC: 5A1D70Z Performance of Urinary Filtration, Intermittent, Less than 6 Hours Per Day (ICD-10-PCS; 2017-08-31)
PROC: 0JH63XZ Insertion of Tunneled Vascular Access Device into Chest Subcutaneous Tissue and Fascia, Percutaneous Approach (ICD-10-PCS; 2017-09-02)
PROC: 02PAX3Z Removal of Infusion Device from Heart, External Approach (ICD-10-PCS; 2017-09-02)
PROC: 02H633Z Insertion of Infusion Device into Right Atrium, Percutaneous Approach (ICD-10-PCS; 2017-09-02)
PROC: B2141ZZ Fluoroscopy of Right Heart using Low Osmolar Contrast (ICD-10-PCS; 2017-09-02)
PROC: 5A1D70Z Performance of Urinary Filtration, Intermittent, Less than 6 Hours Per Day (ICD-10-PCS; 2017-09-03)
DX: N17.0 Acute kidney failure with tubular necrosis (principal); J18.1 Lobar pneumonia, unspecified organism; I13.2 Hypertensive heart and chronic kidney disease with heart failure and with stage 5 chronic kidney disease, or end stage renal disease; E11.22 Type 2 diabetes mellitus with diabetic chronic kidney disease; E11.51 Type 2 diabetes mellitus with diabetic peripheral angiopathy without gangrene; I48.0 Paroxysmal atrial fibrillation; I50.33 Acute on chronic diastolic (congestive) heart failure; J44.1 Chronic obstructive pulmonary disease with (acute) exacerbation; J44.0 Chronic obstructive pulmonary disease with (acute) lower respiratory infection; I27.20 Pulmonary hypertension, unspecified; N18.6 End stage renal disease; D63.8 Anemia in other chronic diseases classified elsewhere; E78.5 Hyperlipidemia, unspecified; G47.33 Obstructive sleep apnea (adult) (pediatric); I25.5 Ischemic cardiomyopathy; I25.10 Atherosclerotic heart disease of native coronary artery without angina pectoris; I70.0 Atherosclerosis of aorta; K80.20 Calculus of gallbladder without cholecystitis without obstruction; K57.90 Diverticulosis of intestine, part unspecified, without perforation or abscess without bleeding; M19.019 Primary osteoarthritis, unspecified shoulder; M19.90 Unspecified osteoarthritis, unspecified site; Z89.612 Acquired absence of left leg above knee; Z95.0 Presence of cardiac pacemaker; Z95.1 Presence of aortocoronary bypass graft; Z95.5 Presence of coronary angioplasty implant and graft; Z88.0 Allergy status to penicillin; Z88.8 Allergy status to other drugs, medicaments and biological substances; Z87.891 Personal history of nicotine dependence; Z82.49 Family history of ischemic heart disease and other diseases of the circulatory system
CPT/HCPCS: 36415; 36556; 36581; 71045; 71250; 73060; 76937; 77001; 80048; 80053; 80069; 80074; 80076; 81001; 82962; 83036; 83540; 83550; 83735; 83880; 83970; 84100; 84145; 84484; 85007; 85025; 85027; 85610; 86704; 86706; 87324; 93005; 93306; 93312; 93320; 93325; 94640; 94760; 96374; 99152; 99285; 99285-25; C1750; C1769; C1892; J0360; J0881; J1040; J1200; J1756; J1940; J1956; J2250; J2405; J2704; J2930; J3010; J3370; J3490; J7512; J7613; J7620

== ENCOUNTER 2017-10-12 07:41 | Inpatient (IN) | payer MEDICARE, OTHER ==
[2017-10-12 09:20] LABS: ADD MAN DIFF? NO
[2017-10-12 09:23] LABS: BASO # 0.1 x10^3/uL (0.0-0.2); BASO % 1 % (0-3); EOS # 0.2 x10^3/uL (0.0-0.7); EOS % 4 % (0-3); HEMATOCRIT 29.4 % (36.0-47.0); LYMPH % 15 % (24-48); MEAN CORPUSCULAR HEMOGLOBIN 27 pg (25-35); MEAN CORPUSCULAR HGB CONC 34 g/dL (31-37); MEAN CORPUSCULAR VOLUME 81 fL (79-100); MONO # 0.9 x10^3/uL (0.0-1.1); MONO % 13 % (0-9); NEUT # 4.4 x10^3uL (1.8-7.7); NEUT % 66 % (31-73); PLATELET COUNT 337 x10^3/uL (140-400); RED BLOOD COUNT 3.65 x10^6/uL (3.50-5.40); RED CELL DISTRIBUTION WIDTH 18.1 % (11.5-14.5); WHITE BLOOD COUNT 6.6 x10^3/uL (4.0-11.0)
[2017-10-12 09:31] LABS: PROTHROMBIN TIME PATIENT 13.1 SEC (11.7-14.0)
[2017-10-12 09:33] LABS: ANION GAP 7 (6-14); BLOOD UREA NITROGEN 14 mg/dL (7-20); BUN/CREATININE RATIO 7 (6-20); CALCIUM 8.5 mg/dL (8.5-10.1); CARBON DIOXIDE 29 mmol/L (21-32); CHLORIDE 104 mmol/L (98-107); CREATININE 1.9 mg/dL (0.6-1.0); GFR 26.1; GLUCOSE 130 mg/dL (70-99); POTASSIUM 3.4 mmol/L (3.5-5.1); SODIUM 140 mmol/L (136-145)
[2017-10-12 09:38] LABS: ALBUMIN 2.3 g/dL (3.4-5.0); ALBUMIN/GLOBULIN RATIO 0.6 (1.0-1.7); ALK PHOS 88 U/L (46-116); ALT (SGPT) 12 U/L (14-59); AST (SGOT) 23 U/L (15-37); MAGNESIUM 1.9 mg/dL (1.8-2.4); TOTAL BILIRUBIN 0.7 mg/dL (0.2-1.0); TOTAL PROTEIN 6.2 g/dL (6.4-8.2)
[2017-10-12 09:44] LABS: TROPONINI 0.035 ng/mL (0.000-0.055)
[2017-10-12 09:46] LABS: CKMB MASS 0.9 ng/mL (0.0-3.6); CREATINE KINASE 50 U/L (26-192)
[2017-10-12 09:46] LABS: NT-PRO BNP 28010 pg/mL (0-124)
[2017-10-12] MEDS ORDERED: NITROGLYCERIN OINT 1 GM PACKET. TP (10:15)
[2017-10-12] MEDS ORDERED: ONDANSETRON PF 4 MG/2 ML VIAL. IV (10:30)
[2017-10-12] MEDS ORDERED: fentaNYL PF VIAL 100 MCG/2 ML VIAL IV (10:30)
[2017-10-12] MEDS ORDERED: ACETAMINOPHEN 325 MG TABLET. PO (10:30)
[2017-10-12] MEDS: POTASSIUM CHLORIDE 20 MEQ TABLET.ER. PO (11:41)
[2017-10-12] MEDS: FUROSEMIDE 40 MG/4 ML VIAL. IVP (11:41)
[2017-10-12] MEDS ORDERED: hydrALAZINE 20 MG/ML VIAL. IVP (13:15)
[2017-10-12] MEDS: CLOPIDOGREL BISULFATE 75 MG TABLET PO (14:00)
[2017-10-12] MEDS: amLODIPine BESYLATE 10 MG TABLET PO (16:30)
[2017-10-12] MEDS: LABETALOL HCL 200 MG TABLET PO ×2 (16:31→20:42)
[2017-10-12] MEDS: AMIODARONE HCL 200 MG TABLET. PO (16:31)
[2017-10-12 18:25] LABS: BILIRUBIN,URINE NEGATIVE (NEG); CLARITY,URINE CLEAR; COLOR,URINE YELLOW; GLUCOSE,URINE 100 mg/dL (NEG); NITRITE,URINE NEGATIVE (NEG); PH,URINE 7.5; PROTEIN,URINE >=300 mg/dL (NEG-TRACE); UROBILINOGEN,URINE 0.2 mg/dL (0.2 mg/dL)
[2017-10-12 18:41] LABS: BACTERIA,URINE FEW /HPF (0-FEW); HYALINE CASTS, URINE FEW /HPF; RBC,URINE OCC /HPF (0-2); SQUAMOUS EPITHELIAL CELL,UR FEW /LPF
[2017-10-12] MEDS: ATORVASTATIN CALCIUM 40 MG TABLET. PO (20:42)
[2017-10-12] MEDS ORDERED: APIXABAN 5 MG TABLET. PO (21:00)
[2017-10-13] MEDS: CLOPIDOGREL BISULFATE 75 MG TABLET PO (08:00)
[2017-10-13] MEDS: amLODIPine BESYLATE 10 MG TABLET PO (08:13)
[2017-10-13] MEDS: LABETALOL HCL 200 MG TABLET PO ×2 (08:13→20:54)
[2017-10-13] MEDS: AMIODARONE HCL 200 MG TABLET. PO (08:14)
[2017-10-13] MEDS: FUROSEMIDE 40 MG/4 ML VIAL. IVP (10:11)
[2017-10-13] MEDS: CHOLECALCIFEROL (VITAMIN D3) 1,000 UNIT TABLET PO (10:11)
[2017-10-13] MEDS: MAGNESIUM OXIDE 400 MG TABLET PO (10:11)
[2017-10-13] MEDS: CYANOCOBALAMIN (VITAMIN B-12) 1,000 MCG TABLET. PO (10:12)
[2017-10-13] MEDS: CALCIUM CARBONATE 500 MG TABLET PO (10:12)
[2017-10-13] MEDS: ALBUTEROL SULFATE 2.5 MG/3 ML NEBU. NEB (10:58)
[2017-10-13] MEDS: HYDROcodone/APAP 5/325MG 1 TAB TABLET PO (11:10)
[2017-10-13] MEDS: CALCIUM ACETATE 667 MG CAPSULE PO ×2 (11:20→16:49)
[2017-10-13] MEDS: ISOSORBIDE MONONITRATE ER 30 MG TAB.ER.24H PO (11:21)
[2017-10-13] MEDS ORDERED: IV NORMAL SALINE 1000ML BAG 1,000 ML IV ×2 (13:37)
[2017-10-13] MEDS ORDERED: DIALYSIS PATIENT. MC ×2 (13:45)
[2017-10-13] MEDS ORDERED: HYDRALAZINE HCL PO (14:00)
[2017-10-13] MEDS: DARBEPOETIN ALFA 60 MCG/0.3 ML DISP.SYRIN. SQ (20:53)
[2017-10-13] MEDS: ATORVASTATIN CALCIUM 40 MG TABLET. PO (20:54)
[2017-10-13] MEDS ORDERED: ATORVASTATIN CALCIUM 40 MG TABLET. PO (21:00)
[2017-10-13] MEDS ORDERED: LABETALOL HCL 100 MG TABLET. PO (21:00)
[2017-10-14] MEDS: CLOPIDOGREL BISULFATE 75 MG TABLET PO (00:12)
[2017-10-14 06:52] LABS: ADD MAN DIFF? NO
[2017-10-14 06:56] LABS: BASO # 0.1 x10^3/uL (0.0-0.2); BASO % 1 % (0-3); EOS # 0.3 x10^3/uL (0.0-0.7); EOS % 5 % (0-3); HEMATOCRIT 27.2 % (36.0-47.0); HEMOGLOBIN 9.4 g/dL (12.0-15.5); LYMPH # 1.2 x10^3/uL (1.0-4.8); LYMPH % 22 % (24-48); MEAN CORPUSCULAR HEMOGLOBIN 28 pg (25-35); MEAN CORPUSCULAR HGB CONC 35 g/dL (31-37); MEAN CORPUSCULAR VOLUME 81 fL (79-100); MONO # 0.7 x10^3/uL (0.0-1.1); MONO % 13 % (0-9); NEUT # 3.3 x10^3uL (1.8-7.7); NEUT % 59 % (31-73); PLATELET COUNT 355 x10^3/uL (140-400); RED BLOOD COUNT 3.36 x10^6/uL (3.50-5.40); RED CELL DISTRIBUTION WIDTH 18.1 % (11.5-14.5); WHITE BLOOD COUNT 5.6 x10^3/uL (4.0-11.0)
[2017-10-14 07:18] LABS: ANION GAP 6 (6-14); BLOOD UREA NITROGEN 12 mg/dL (7-20); CALCIUM 8.6 mg/dL (8.5-10.1); CARBON DIOXIDE 29 mmol/L (21-32); CHLORIDE 104 mmol/L (98-107); CREATININE 2.4 mg/dL (0.6-1.0); GFR 19.9; GLUCOSE 117 mg/dL (70-99); MAGNESIUM 1.9 mg/dL (1.8-2.4); POTASSIUM 3.3 mmol/L (3.5-5.1); SODIUM 139 mmol/L (136-145)
[2017-10-14] MEDS: POTASSIUM CHLORIDE 10 MEQ TABLET.ER. PO ×3 (08:00→17:54)
[2017-10-14] MEDS: CALCIUM ACETATE 667 MG CAPSULE PO ×3 (08:00→17:53)
[2017-10-14] MEDS: AMIODARONE HCL 200 MG TABLET. PO (08:10)
[2017-10-14] MEDS ORDERED: IV NORMAL SALINE 1000ML BAG 1,000 ML IV ×2 (08:30)
[2017-10-14] MEDS: CYANOCOBALAMIN (VITAMIN B-12) 1,000 MCG TABLET. PO (09:00)
[2017-10-14] MEDS ORDERED: amLODIPine BESYLATE 5 MG TABLET PO (09:00)
[2017-10-14] MEDS: amLODIPine BESYLATE 10 MG TABLET PO (09:00)
[2017-10-14] MEDS: CHOLECALCIFEROL (VITAMIN D3) 1,000 UNIT TABLET PO (09:00)
[2017-10-14] MEDS: MAGNESIUM OXIDE 400 MG TABLET PO (09:00)
[2017-10-14] MEDS: CALCIUM CARBONATE 500 MG TABLET PO (09:00)
[2017-10-14] MEDS: ISOSORBIDE MONONITRATE ER 30 MG TAB.ER.24H PO (09:00)
[2017-10-14] MEDS ORDERED: NON FORMULARY ITEM (Ascorbate Calcium/Bioflavonoid (Ester-C 1,000 Mg Tablet) 1 EACH) PO (09:00)
[2017-10-14] MEDS: LABETALOL HCL 200 MG TABLET PO ×2 (09:00→21:31)
[2017-10-14] MEDS ORDERED: DIALYSIS PATIENT. MC ×2 (09:15)
[2017-10-14] MEDS ORDERED: diphenhydrAMINE 50 MG/ML VIAL (09:57)
[2017-10-14] MEDS: ALBUTEROL SULFATE 2.5 MG/3 ML NEBU. NEB (19:31)
[2017-10-14] MEDS: ATORVASTATIN CALCIUM 40 MG TABLET. PO (21:31)
[2017-10-14] MEDS: TEMAZEPAM 15 MG CAPSULE PO (22:50)
[2017-10-15] MEDS: CALCIUM ACETATE 667 MG CAPSULE PO ×3 (08:00→17:32)
[2017-10-15] MEDS ORDERED: ROCURONIUM 50 MG/5 ML VIAL. (09:04)
[2017-10-15] MEDS ORDERED: ePHEDrine PF IN SALINE 50 MG/5 ML DISP.SYRIN IV (09:04)
[2017-10-15] MEDS ORDERED: SUCCINYLCHOLINE 200 MG/10 ML VIAL. (09:05)
[2017-10-15] MEDS ORDERED: fentaNYL PF VIAL 100 MCG/2 ML VIAL (09:05)
[2017-10-15] MEDS: BUPIVACAINE-EPI 0.25%-1:200000 50 ML VIAL. INJ (09:41)
[2017-10-15] MEDS ORDERED: DEXAMETHASONE SOD PHOS 20 MG/5 ML VIAL. (09:52)
[2017-10-15] MEDS ORDERED: LIDOCAINE 2% PF Vial for OR 5 ML VIAL. (09:52)
[2017-10-15] MEDS ORDERED: PROPOFOL 20 ML IV (09:52)
[2017-10-15] MEDS ORDERED: ONDANSETRON PF 4 MG/2 ML VIAL. (09:53)
[2017-10-15] MEDS ORDERED: NEOSTIGMINE 10 MG/10 ML VIAL. (09:55)
[2017-10-15] MEDS ORDERED: GLYCOPYRROLATE 1 MG/5 ML VIAL. (10:06)
[2017-10-15 10:53] LABS: POC GLUCOSE 111 mg/dL (70-99)
[2017-10-15] MEDS: LABETALOL HCL 200 MG TABLET PO ×2 (12:03→20:55)
[2017-10-15] MEDS: AMIODARONE HCL 200 MG TABLET. PO (12:03)
[2017-10-15] MEDS: MAGNESIUM OXIDE 400 MG TABLET PO (12:04)
[2017-10-15] MEDS: amLODIPine BESYLATE 10 MG TABLET PO (12:04)
[2017-10-15] MEDS: CALCIUM CARBONATE 500 MG TABLET PO (12:05)
[2017-10-15] MEDS: POTASSIUM CHLORIDE 10 MEQ TABLET.ER. PO (12:05)
[2017-10-15] MEDS: CHOLECALCIFEROL (VITAMIN D3) 1,000 UNIT TABLET PO (12:06)
[2017-10-15] MEDS: CYANOCOBALAMIN (VITAMIN B-12) 1,000 MCG TABLET. PO (12:06)
[2017-10-15] MEDS: ISOSORBIDE MONONITRATE ER 30 MG TAB.ER.24H PO (12:07)
[2017-10-15] MEDS: HYDROcodone/APAP 5/325MG 1 TAB TABLET PO ×2 (12:08→23:31)
[2017-10-15] MEDS: fentaNYL PF VIAL 100 MCG/2 ML VIAL IV (14:36)
[2017-10-15] MEDS: ATORVASTATIN CALCIUM 40 MG TABLET. PO (20:55)
[2017-10-15] MEDS ORDERED: LACTOBACILLUS RHAMNOSUS GG 1 CAPSULE. PO (21:00)
[2017-10-15] MEDS: TEMAZEPAM 15 MG CAPSULE PO (23:31)
[2017-10-16] MEDS: fentaNYL PF VIAL 100 MCG/2 ML VIAL IV (03:56)
[2017-10-16] MEDS: LABETALOL HCL 200 MG TABLET PO ×2 (09:00→17:59)
[2017-10-16] MEDS: amLODIPine BESYLATE 5 MG TABLET PO (09:00)
[2017-10-16] MEDS: ISOSORBIDE MONONITRATE ER 30 MG TAB.ER.24H PO ×2 (09:00→18:45)
[2017-10-16] MEDS: MAGNESIUM OXIDE 400 MG TABLET PO (09:54)
[2017-10-16] MEDS: CALCIUM ACETATE 667 MG CAPSULE PO ×3 (09:55→17:59)
[2017-10-16] MEDS: CHOLECALCIFEROL (VITAMIN D3) 1,000 UNIT TABLET PO (09:55)
[2017-10-16] MEDS: AMIODARONE HCL 200 MG TABLET. PO (09:55)
[2017-10-16] MEDS: CYANOCOBALAMIN (VITAMIN B-12) 1,000 MCG TABLET. PO (09:58)
[2017-10-16] MEDS: oxyCODONE/APAP 7.5/325 1 TAB TABLET PO ×2 (10:04→17:58)
[2017-10-16] MEDS: CALCIUM CARBONATE 500 MG TABLET PO (10:04)
[2017-10-16] MEDS ORDERED: DIALYSIS PATIENT. MC ×2 (13:15)
[2017-10-16] MEDS ORDERED: IV NORMAL SALINE 1000ML BAG 1,000 ML IV ×2 (13:15)
== END 2017-10-16 19:15 | disposition home or self-care (01) | DRG 981 ==
LOC: 5 SOUTH 12:05 → ER 07:41 → 5 SOUTH 12:11
PROC: 0WHG43Z Insertion of Infusion Device into Peritoneal Cavity, Percutaneous Endoscopic Approach (ICD-10-PCS; principal; 2017-10-15 09:25)
PROC: 5A1D70Z Performance of Urinary Filtration, Intermittent, Less than 6 Hours Per Day (ICD-10-PCS; 2017-10-15 09:25)
PROC: 5A1D70Z Performance of Urinary Filtration, Intermittent, Less than 6 Hours Per Day (ICD-10-PCS; 2017-10-15 09:25)
PROC: 5A1D70Z Performance of Urinary Filtration, Intermittent, Less than 6 Hours Per Day (ICD-10-PCS; 2017-10-15 09:25)
PROC: 5A1D70Z Performance of Urinary Filtration, Intermittent, Less than 6 Hours Per Day (ICD-10-PCS; 2017-10-15 09:25)
DX: I13.2 Hypertensive heart and chronic kidney disease with heart failure and with stage 5 chronic kidney disease, or end stage renal disease (principal); I50.33 Acute on chronic diastolic (congestive) heart failure; N18.6 End stage renal disease; E44.0 Moderate protein-calorie malnutrition; J98.11 Atelectasis; D63.8 Anemia in other chronic diseases classified elsewhere; E11.22 Type 2 diabetes mellitus with diabetic chronic kidney disease; E11.51 Type 2 diabetes mellitus with diabetic peripheral angiopathy without gangrene; E11.65 Type 2 diabetes mellitus with hyperglycemia; E78.00 Pure hypercholesterolemia, unspecified; E78.5 Hyperlipidemia, unspecified; E87.6 Hypokalemia; J44.9 Chronic obstructive pulmonary disease, unspecified; I16.0 Hypertensive urgency; I25.10 Atherosclerotic heart disease of native coronary artery without angina pectoris; I35.2 Nonrheumatic aortic (valve) stenosis with insufficiency; I70.1 Atherosclerosis of renal artery; I48.0 Paroxysmal atrial fibrillation; Z82.49 Family history of ischemic heart disease and other diseases of the circulatory system; Z83.3 Family history of diabetes mellitus; Z89.512 Acquired absence of left leg below knee; Z89.612 Acquired absence of left leg above knee; Z95.0 Presence of cardiac pacemaker; Z95.1 Presence of aortocoronary bypass graft; Z99.2 Dependence on renal dialysis; I25.2 Old myocardial infarction; Z79.899 Other long term (current) drug therapy; Z88.1 Allergy status to other antibiotic agents; Z88.0 Allergy status to penicillin; Z88.8 Allergy status to other drugs, medicaments and biological substances; Z87.891 Personal history of nicotine dependence; Z68.25 Body mass index [BMI] 25.0-25.9, adult
CPT/HCPCS: 36415; 71045; 80048; 80053; 81001; 82553; 82962; 83036; 83735; 83880; 84484; 85025; 85610; 93005; 94640; 94760; 96374; 99285; 99285-25; A7015; J0330; J0881; J1100; J1940; J1956; J2001; J2060; J2405; J2704; J2710; J3010; J3490; J7030; J7613

== ENCOUNTER 2017-10-21 12:37 | Outpatient (CLI) | payer MEDICARE, OTHER ==
[2017-10-21] MEDS ORDERED: IOHEXOL 240 MG/ML 50ML VIAL. (12:43)
[2017-10-21] MEDS: IOHEXOL 240 MG/ML 50ML VIAL. IJ (13:15)
[2017-10-21] MEDS ORDERED: CONTRAST GIVEN. MC (13:30)
== END 2017-10-21 13:50 | disposition home or self-care (01) ==
LOC: INTRAD 12:37
DX: T85.611A Breakdown (mechanical) of intraperitoneal dialysis catheter, initial encounter (principal); I13.2 Hypertensive heart and chronic kidney disease with heart failure and with stage 5 chronic kidney disease, or end stage renal disease; E11.22 Type 2 diabetes mellitus with diabetic chronic kidney disease; N18.5 Chronic kidney disease, stage 5; I50.33 Acute on chronic diastolic (congestive) heart failure; I70.1 Atherosclerosis of renal artery; J44.9 Chronic obstructive pulmonary disease, unspecified; I25.2 Old myocardial infarction; I48.91 Unspecified atrial fibrillation; E78.00 Pure hypercholesterolemia, unspecified; K21.9 Gastro-esophageal reflux disease without esophagitis; E11.51 Type 2 diabetes mellitus with diabetic peripheral angiopathy without gangrene; Z88.1 Allergy status to other antibiotic agents; Z99.2 Dependence on renal dialysis; Z95.0 Presence of cardiac pacemaker; Z95.1 Presence of aortocoronary bypass graft; Z88.0 Allergy status to penicillin; Z88.8 Allergy status to other drugs, medicaments and biological substances; Z87.891 Personal history of nicotine dependence; Z79.82 Long term (current) use of aspirin; Z79.899 Other long term (current) drug therapy; Z83.3 Family history of diabetes mellitus; Z82.49 Family history of ischemic heart disease and other diseases of the circulatory system; Z79.01 Long term (current) use of anticoagulants; Z86.718 Personal history of other venous thrombosis and embolism
CPT/HCPCS: 49400; 74190; C1769; Q9966

== ENCOUNTER → 2017-11-07 | Day surgery (SDC) | payer MEDICARE, OTHER ==
[~2017-11-07] MED LIST changes: -ACET500T33 PO; -ALPR0.5T PO; -AMIO200T2 PO; -AMLO10TA2 PO; -AMLO5TAB2 PO; -APIX5TAB PO; -ASCO1TAB5 PO; -ASPI-630 PO; -ATEN25TA PO; -ATOR10TA60 PO; -ATOR40TA59 PO; +BUPIVACAINE-EPI 0.25%-1:200000 50 ML VIAL.; -CHOL100014 PO; -CLOP75TA PO; -CYAN50008 PO; +DEXAMETHASONE SOD PHOS 20 MG/5 ML VIAL.; -DOXY100C14; -FENO145T PO; -FENO145T2 PO; -FENO54TA PO; -FURO-69 PO; -FURO40TA4 PO; -GARL1CAP3 PO; -GLIM2TAB PO; +GLYCOPYRROLATE 1 MG/5 ML VIAL.; +HEPARIN SODIUM 5,000 UNIT in IV NORMAL SALINE 500ML BAG 500 ML IRR; -HYDR-2758 PO; -HYDR-2762 PO; -HYDR-2869 PO; -HYDR12.58 PO; -IBUP-1007 PO; -ISOS120T PO; +IV NORMAL SALINE 1000ML BAG 1,000 ML IV; +IV RINGERS,LACTATED 1000ML 1,000 ML IV; -LABE200T2 PO; +LIDOCAINE 1% PF 2 ML VIAL. ID; +LIDOCAINE 2% PF Vial for OR 5 ML VIAL.; -LISI40TA PO; -MAGN400C PO; -METF500T4 PO; +MORPHINE SULFATE 2 MG/ML DISP.SYRIN. IV; -MULT-650 PO; -MULT1TAB97 PO; +NEOSTIGMINE METHYLSULFATE 5 MG/5 ML SYRINGE.; -OMEG1CAP27 PO; +ONDANSETRON PF 4 MG/2 ML VIAL.; +ONDANSETRON PF 4 MG/2 ML VIAL. IV; -POTASSIUM CHLO10 MEQ PO; +PROPOFOL 20 ML IV; -RANI150T2; -RANI150T6 PO; +ROCURONIUM 50 MG/5 ML VIAL.; -SOTA80TA48 PO; -SPIR25TA PO; +fentaNYL PF VIAL 100 MCG/2 ML VIAL; +fentaNYL PF VIAL 100 MCG/2 ML VIAL IV
[2017-11-07 08:24] LABS: ANION GAP 4 (6-14); BLOOD UREA NITROGEN 7 mg/dL (7-20); CALCIUM 7.9 mg/dL (8.5-10.1); CARBON DIOXIDE 33 mmol/L (21-32); CHLORIDE 101 mmol/L (98-107); GFR 24.6; GLUCOSE 115 mg/dL (70-99); POTASSIUM 3.3 mmol/L (3.5-5.1); SODIUM 138 mmol/L (136-145)
[2017-11-07] MEDS: PROCHLORPERAZINE 10 MG/2 ML VIAL. IV (11:40)
[2017-11-07] MEDS: fentaNYL PF VIAL 100 MCG/2 ML VIAL IV (11:48)
[2017-11-07] MEDS: HYDROcodone/APAP 5/325MG 1 TAB TABLET PO (12:26)
== END | disposition home or self-care (01) ==
LOC: SURG 07:16
DX: T85.611A Breakdown (mechanical) of intraperitoneal dialysis catheter, initial encounter (principal); T85.868A Thrombosis due to other internal prosthetic devices, implants and grafts, initial encounter; K66.0 Peritoneal adhesions (postprocedural) (postinfection); I12.0 Hypertensive chronic kidney disease with stage 5 chronic kidney disease or end stage renal disease; N18.6 End stage renal disease; E78.5 Hyperlipidemia, unspecified; I48.91 Unspecified atrial fibrillation; I13.2 Hypertensive heart and chronic kidney disease with heart failure and with stage 5 chronic kidney disease, or end stage renal disease; I50.33 Acute on chronic diastolic (congestive) heart failure; I70.1 Atherosclerosis of renal artery; K21.9 Gastro-esophageal reflux disease without esophagitis; I25.2 Old myocardial infarction; E11.22 Type 2 diabetes mellitus with diabetic chronic kidney disease; E11.51 Type 2 diabetes mellitus with diabetic peripheral angiopathy without gangrene; I25.10 Atherosclerotic heart disease of native coronary artery without angina pectoris; Z98.890 Other specified postprocedural states; Z88.1 Allergy status to other antibiotic agents; Z88.8 Allergy status to other drugs, medicaments and biological substances; Z89.522 Acquired absence of left knee; Z95.0 Presence of cardiac pacemaker; Z87.828 Personal history of other (healed) physical injury and trauma; Z79.2 Long term (current) use of antibiotics; Z79.01 Long term (current) use of anticoagulants; Z79.82 Long term (current) use of aspirin; Z79.899 Other long term (current) drug therapy; Z87.891 Personal history of nicotine dependence; Z99.2 Dependence on renal dialysis; Z95.9 Presence of cardiac and vascular implant and graft, unspecified; Z83.3 Family history of diabetes mellitus; Z82.49 Family history of ischemic heart disease and other diseases of the circulatory system; Y83.8 Other surgical procedures as the cause of abnormal reaction of the patient, or of later complication, without mention of misadventure at the time of the procedure; Y92.9 Unspecified place or not applicable
CPT/HCPCS: 36415; 80048; 88304; J0780; J1100; J1644; J1956; J2001; J2405; J2704; J2710; J3010; J3490; J7030; J7040

== ENCOUNTER 2018-04-25 01:37 | Inpatient (IN) | payer MEDICARE, OTHER ==
[~2018-04-25] VITALS: Ht 170.2 cm; Wt 68.0 kg
[~2018-04-25 01:37] MED LIST changes: +ACET500T33 PO; +ALPR0.5T PO; +AMIO200T4 PO; +AMLO10TA6 PO; +AMLO5TAB7 PO; +APIX5TAB PO; +ASCO1TAB5 PO; +ASPI-630 PO; +ATEN25TA PO; +ATOR10TA60 PO; +ATOR40TA59 PO; -BUPIVACAINE-EPI 0.25%-1:200000 50 ML VIAL.; +CALC600T4 PO; +CALC667T PO; +CHOL100014 PO; +CLOP75TA PO; +CYAN10005 PO; +CYAN50008 PO; -DEXAMETHASONE SOD PHOS 20 MG/5 ML VIAL.; +DILT240C82 PO; +DOXY100C14; +FAMO20TA5 PO; +FENO145T PO; +FENO145T30 PO; +FENO54TA PO; +FURO-69 PO; +FURO40TA4 PO; +GARL1CAP3 PO; +GLIM2TAB PO; -GLYCOPYRROLATE 1 MG/5 ML VIAL.; -HEPARIN SODIUM 5,000 UNIT in IV NORMAL SALINE 500ML BAG 500 ML IRR; +HYDR-2761 PO; +HYDR-2765 PO; +HYDR-2868 PO; +HYDR-2869 PO; +HYDR12.58 PO; +IBUP-1007 PO; +IPRA3AMP29 NEB; +ISOS120T PO; -IV NORMAL SALINE 1000ML BAG 1,000 ML IV; -IV RINGERS,LACTATED 1000ML 1,000 ML IV; +LABE100T5 PO; +LABE200T4 PO; -LIDOCAINE 1% PF 2 ML VIAL. ID; -LIDOCAINE 2% PF Vial for OR 5 ML VIAL.; +LISI-130 PO; +MAGN400C PO; +METF500T16 PO; -MORPHINE SULFATE 2 MG/ML DISP.SYRIN. IV; +MULT-650 PO; +MULT1TAB97 PO; -NEOSTIGMINE METHYLSULFATE 5 MG/5 ML SYRINGE.; +NYST100054 SWSW; +OMEG1CAP27 PO; -ONDANSETRON PF 4 MG/2 ML VIAL.; -ONDANSETRON PF 4 MG/2 ML VIAL. IV; +POTA10TA12 PO; -PROPOFOL 20 ML IV; +RANI150T2; +RANI150T21 PO; -ROCURONIUM 50 MG/5 ML VIAL.; +SEVE800T9 PO; +SOTA80TA48 PO; +SPIR25TA PO; +TEMA15CA6 PO; -fentaNYL PF VIAL 100 MCG/2 ML VIAL; -fentaNYL PF VIAL 100 MCG/2 ML VIAL IV
--- NOTE | 2018-04-25 01:59 | PHYS DOC ---
Past Medical History Past Medical History: CAD, CHF, COPD, Diabetes-Type II, High Cholesterol, Heart Disease, Hypertension, [place], Renal Failure, Other Additional Past Medical Histor: Carpal Tunnel Past Surgical History: Coronary Bypass Surgery, Pacemaker, Other Additional Past Surgical Histo: LEFT AKA; right carpal tunnel release, ST[facility], [facility] [employer] Alcohol Use: None Drug Use: None Adult General Chief Complaint Chief Complaint: GI PROBLEM HPI HPI Patient is a 72-year-old female, with a past history of cardiac disease, ESRD on home peritoneal dialysis, and other health problems, who presents to the emergency department for evaluation. She states that this evening she developed several episodes of vomiting and diarrhea, and some generalized lower abdominal pain. She states that in the past she has been told that these could be symptoms of peritonitis and she presents to the emergency department for evaluation. She has not had any bloody emesis or stools. She has not had any fevers, nasal congestion, cough, chest pain, or shortness of breath. She denies any recent travel or antibiotic use. She states that she has not yet drained her abdomen today from her peritoneal dialysis. There are no alleviating or exacerbating factors to her symptoms. Review of Systems Review of Systems Constitutional: Denies fever or chills [] Eyes: Denies change in visual acuity, redness, or eye pain [] HENT: Denies nasal congestion or sore throat [] Respiratory: Denies cough or shortness of breath [] Cardiovascular: The patient denies any shortness of breath, chest pain, palpitations, or orthopnea [] GI: No additional information not addressed in HPI [] : Patient makes only small amounts of urine, with the aid of Lasix.[] Musculoskeletal: Denies back pain or joint pain [] Integument: Denies rash or skin lesions [] Neurologic: Denies headache, focal weakness or sensory changes [] Endocrine: Denies polyuria or polydipsia [] All other systems were reviewed and found to be within normal limits, except as documented in this note. Current Medications Current Medications Current Medications Medications (Trade) Dose Ordered Sig/Shilo Start Time Stop Time Status Last Admin Dose Admin Ondansetron HCl (Zofran) 4 mg 1X ONCE 04/25/18 02:00 04/25/18 02:01 DC 04/25/18 02:01 4 MG Potassium Chloride (Klor-Con) 20 meq 1X ONCE 04/25/18 02:30 04/25/18 02:31 DC 04/25/18 02:49 20 MEQ Allergies Allergies Allergies Coded Allergies Type Severity Reaction Last Updated Verified Penicillins Allergy Intermediate Hives 11/11/17 Yes bacitracin Allergy Intermediate 11/07/17 Yes erythromycin base Allergy Intermediate Hives 11/11/17 Yes neomycin Allergy Intermediate 11/07/17 Yes niacin Allergy Intermediate 11/07/17 Yes polymyxin B Allergy Intermediate 11/07/17 Yes Physical Exam Physical Exam PHYSICAL EXAM: CONSTITUTIONAL: Well developed, well nourished HEAD: normocephalic, atraumatic EENT: PERRL, EOMI. Conjunctivae normal color, sclerae non-icteric; moist mucous membranes. NECK: Supple, non-tender; no meningismus. LUNGS: Lungs CTA, breathing even and unlabored. Normal air movement. HEART: Regular rate and rhythm, no murmur CHEST: No deformity; non-tender ABDOMEN: The abdomen is soft, mild diffuse tenderness to palpation of the lower abdomen, without rebound or guarding, no masses or bruits. There is a peritoneal dialysis catheter in the upper abdomen. EXTREM: Normal ROM; no deformity, no calf tenderness. Normal pulses palpable in all extremities. There is no pedal edema. SKIN: No rash; no diaphoresis NEURO: Alert; normal speech and cognition; CN's grossly intact; strength grossly intact without focal deficit. BACK: No CVA TTP. Current Patient Data Vital Signs Vital Signs Date Time Temp Pulse Resp B/P (MAP) Pulse Ox O2 Delivery O2 Flow Rate FiO2 04/25/18 01:53 97.6 86 18 129/58 (81) 98 Room Air 97.6 Lab Values Laboratory Tests Test 04/25/18 01:42 04/25/18 02:19 White Blood Count 13.1 x10^3/uL (4.0-11.0) H Red Blood Count 3.85 x10^6/uL (3.50-5.40) Hemoglobin 11.6 g/dL (12.0-15.5) L Hematocrit 32.2 % (36.0-47.0) L Mean Corpuscular Volume 84 fL (79-100) Mean Corpuscular Hemoglobin 30 pg (25-35) Mean Corpuscular Hemoglobin Concent 36 g/dL (31-37) Red Cell Distribution Width 14.7 % (11.5-14.5) H Platelet Count 351 x10^3/uL (140-400) Neutrophils (%) (Auto) 80 % (31-73) H Lymphocytes (%) (Auto) 8 % (24-48) L Monocytes (%) (Auto) 8 % (0-9) Eosinophils (%) (Auto) 4 % (0-3) H Basophils (%) (Auto) 0 % (0-3) Neutrophils # (Auto) 10.4 x10^3uL (1.8-7.7) H Lymphocytes # (Auto) 1.1 x10^3/uL (1.0-4.8) Monocytes # (Auto) 1.0 x10^3/uL (0.0-1.1) Eosinophils # (Auto) 0.5 x10^3/uL (0.0-0.7) Basophils # (Auto) 0.0 x10^3/uL (0.0-0.2) Erythrocyte Sedimentation Rate 39 (0-25) H Sodium Level 139 mmol/L (136-145) Potassium Level 2.7 mmol/L (3.5-5.1) *L Chloride Level 99 mmol/L (98-107) Carbon Dioxide Level 27 mmol/L (21-32) Anion Gap 13 (6-14) Blood Urea Nitrogen 33 mg/dL (7-20) H Creatinine 4.2 mg/dL (0.6-1.0) H Estimated GFR (Cockcroft-Gault) 10.4 BUN/Creatinine Ratio 8 (6-20) Glucose Level 139 mg/dL (70-99) H Calcium Level 9.2 mg/dL (8.5-10.1) Total Bilirubin 0.8 mg/dL (0.2-1.0) Aspartate Amino Transferase (AST) 14 U/L (15-37) L Alanine Aminotransferase (ALT) 12 U/L (14-59) L Alkaline Phosphatase 78 U/L (46-116) Troponin I Quantitative 0.033 ng/mL (0.000-0.055) C-Reactive Protein, Quantitative 9.3 mg/L (0-3.3) H Total Protein 6.6 g/dL (6.4-8.2) Albumin 2.7 g/dL (3.4-5.0) L Albumin/Globulin Ratio 0.7 (1.0-1.7) L Lipase 82 U/L (73-393) Body Fluid Source Perit dialysate Body Fluid Color Colorless Body Fluid Clarity Clear Body Fluid Nucleated Cells 0 /cmm Body Fluid Total RBCs Counted 0 /cmm Laboratory Tests 04/25/18 01:42 Laboratory Tests 04/25/18 01:42 EKG EKG [] Radiology/Procedures Radiology/Procedures [PROCEDURE: CT ABDOMEN PELVIS WO CONTRAST CT of the abdomen and pelvis without contrast 04/25/2018. Reason for exam: Ubaldo pain. Helical noncontrast images were performed through the abdomen and pelvis. Comparison is made with a prior study of 06/29/2017. Exposure: One or more of the following individualized dose reduction techniques were utilized for this examination: 1. Automated exposure control 2. Adjustment of the mA and/or kV according to patient size 3. Use of iterative reconstruction technique. FINDINGS: The lung bases are clear. The liver and spleen are homogeneous in density and normal in configuration. Evaluation of the solid organs is limited without IV contrast. Again noted is atrophy of the right kidney. No renal mass or obstruction is seen. The adrenal glands are not enlarged. Small stones are again shown in the gallbladder. The pancreas appears normal. No retroperitoneal or mesenteric adenopathy is seen. There is no apparent abdominal mass or inflammatory process. There is some thickening of the wall of the right colon, although this is due to fat deposition and is not thought to represent an acute process. A dialysis catheter is now seen coiled in the upper pelvis. Images through the pelvis show no apparent abnormality of the distal ureters. The bladder was not well-distended. Small air bubbles are seen anteriorly in the bladder. There is no apparent pelvic or inguinal adenopathy. No separate pelvic mass or inflammatory process is seen. There is some diverticulosis of the sigmoid colon without apparent diverticulitis. The appendix is apparently distended with stool, but shows no inflammation. IMPRESSION: No definite acute findings. There appears to be a small amount of air in the bladder. This presumably relates to recent catheterization or instrumentation. There are no adjacent inflammatory changes to suggest fistula to the bowel. No other acute findings are noted.] Course & Med Decision Making Course & Med Decision Making Pertinent Labs and Imaging studies reviewed. (See chart for details) [3:45 AM: The patient's condition remained stable. Due to her abdominal tenderness and elevated inflammatory markers, the possibility of peritonitis exists. The lack of significant cell count and the fluid is nondiagnostic as the patient recently had inserted dialysis fluid. Culture will be diagnostic. I will admit the patient for further evaluation and treatment.] Dragon Disclaimer Dragon Disclaimer This electronic medical record was generated, in whole or in part, using a voice recognition dictation system. Departure Departure Impression: Primary Impression: Abdominal pain Additional Impressions: ESRD (end stage renal disease) Peritoneal dialysis catheter in place Nausea vomiting and diarrhea Hypokalemia Disposition: ADMITTED INPATIENT Admitting Physician: Christina Pritchard Condition: STABLE Referrals: CHRISTINA PRITCHARD MD (PCP) Problem Qualifiers CHRISTINA DIOP MD Apr 25, 2018 01:59
[2018-04-25] MEDS ORDERED: ONDANSETRON PF 4 MG/2 ML VIAL. IV ONE (02:00)
[2018-04-25 02:15] LABS: BASO % 0 % (0-3); EOS # 0.5 x10^3/uL (0.0-0.7); EOS % 4 % (0-3); HEMATOCRIT 32.2 % (36.0-47.0); HEMOGLOBIN 11.6 g/dL (12.0-15.5); LYMPH # 1.1 x10^3/uL (1.0-4.8); LYMPH % 8 % (24-48); MEAN CORPUSCULAR HEMOGLOBIN 30 pg (25-35); MEAN CORPUSCULAR HGB CONC 36 g/dL (31-37); MEAN CORPUSCULAR VOLUME 84 fL (79-100); MONO % 8 % (0-9); NEUT # 10.4 x10^3uL (1.8-7.7); NEUT % 80 % (31-73); PLATELET COUNT 351 x10^3/uL (140-400); RED BLOOD COUNT 3.85 x10^6/uL (3.50-5.40); RED CELL DISTRIBUTION WIDTH 14.7 % (11.5-14.5); WHITE BLOOD COUNT 13.1 x10^3/uL (4.0-11.0)
[2018-04-25 02:19] LABS: ALBUMIN 2.7 g/dL (3.4-5.0); ALBUMIN/GLOBULIN RATIO 0.7 (1.0-1.7); C-REACTIVE PROTEIN 9.3 mg/L (0-3.3); CALCIUM 9.2 mg/dL (8.5-10.1); CREATININE 4.2 mg/dL (0.6-1.0); GFR 10.4; TOTAL BILIRUBIN 0.8 mg/dL (0.2-1.0); TOTAL PROTEIN 6.6 g/dL (6.4-8.2)
[2018-04-25 02:23] LABS: POTASSIUM 2.7 mmol/L (3.5-5.1)
[2018-04-25] MEDS ORDERED: POTASSIUM CHLORIDE 20 MEQ TABLET.ER. PO ONE ×3 (02:30→15:30)
[2018-04-25 02:41] LABS: BF COLOR COLORLESS; BF SOURCE PERIT DIALYSATE
[2018-04-25 02:42] LABS: BF CLARITY CLEAR; BF RBC COUNT 0 /cmm; BF WBC COUNT 0 /cmm
--- NOTE | 2018-04-25 03:01 | RAD ---
CT of the abdomen and pelvis without contrast 04/25/2018. Reason for exam: Ubaldo pain. Helical noncontrast images were performed through the abdomen and pelvis. Comparison is made with a prior study of 06/29/2017. Exposure: One or more of the following individualized dose reduction techniques were utilized for this examination: 1. Automated exposure control 2. Adjustment of the mA and/or kV according to patient size 3. Use of iterative reconstruction technique. FINDINGS: The lung bases are clear. The liver and spleen are homogeneous in density and normal in configuration. Evaluation of the solid organs is limited without IV contrast. Again noted is atrophy of the right kidney. No renal mass or obstruction is seen. The adrenal glands are not enlarged. Small stones are again shown in the gallbladder. The pancreas appears normal. No retroperitoneal or mesenteric adenopathy is seen. There is no apparent abdominal mass or inflammatory process. There is some thickening of the wall of the right colon, although this is due to fat deposition and is not thought to represent an acute process. A dialysis catheter is now seen coiled in the upper pelvis. Images through the pelvis show no apparent abnormality of the distal ureters. The bladder was not well-distended. Small air bubbles are seen anteriorly in the bladder. There is no apparent pelvic or inguinal adenopathy. No separate pelvic mass or inflammatory process is seen. There is some diverticulosis of the sigmoid colon without apparent diverticulitis. The appendix is apparently distended with stool, but shows no inflammation. IMPRESSION: No definite acute findings. There appears to be a small amount of air in the bladder. This presumably relates to recent catheterization or instrumentation. There are no adjacent inflammatory changes to suggest fistula to the bowel. No other acute findings are noted. Electronically signed by: Gatito Honeycutt Jr., MD (04/25/2018 2:56 AM) [facility]
[2018-04-25] MEDS ORDERED: cefTRIAXone IV Push 1 GM VIAL. IVP ONE (04:00)
[2018-04-25] MEDS ORDERED: ONDANSETRON PF 4 MG/2 ML VIAL. IV PRN (04:45)
[2018-04-25 05:10] VITALS: BP 118/56
[2018-04-25 07:00] VITALS: BP 116/61
[2018-04-25] MEDS ORDERED: HYDROcodone/APAP 5/325MG 1 TAB TABLET PO PRN (08:15)
--- NOTE | 2018-04-25 08:15 | PDOC1 ---
H & P H&P HPI: Ms. Uribe is a 72-year-old white female with multiple chronic conditions, including end-stage renal disease on peritoneal dialysis, COPD, coronary artery disease, hyperlipidemia, hypertension, renal artery stenosis, type 2 diabetes, paroxysmal A. fib, status post left BKA, who presented to the emergency room for nausea, vomiting, abdominal pain. She was concerned for possible infection given her history of peritoneal dialysis. Labs in the emergency room are significant for mild leukocytosis with left shift, elevated ESR, hypokalemia at 2.7. CT abdomen and pelvis was unremarkable for acute findings. Peritoneal fluid was clear, colorless with no nucleated cells and is pending culture. She was admitted for further evaluation and management. ROS: Constitutional: Denies fever, admits fatigue HEENT: Admits sore throat, congestion Cardio: Denies chest pain, edema; admits dyspnea with exertion Pulmonary: Denies shortness of breath, cough, wheezing GI: Admits nausea, vomiting, diarrhea - all improved, denies abdominal pain currently Skin: Denies rashes Neuro: Denies weakness, paresthesias PAST MEDICAL HISTORY: As above SOCIAL HISTORY: Quit smoking some years ago, single, lives with her son. Nondrinker. FAMILY HISTORY: Unremarkable. Meds: Reviewed and reconciled Allergies: Reviewed PE: GEN: Alert, oriented, no acute distress NECK: Supple ORAL: minimal erythema of pharynx LUNGS: Decreased bilaterally, otherwise clear CARDIOVASCULAR: RRR, 2/6 systolic murmur. ABDOMEN: Soft and nontender, nondistended, no rebound or guarding EXTREMITIES: She has a left below the knee amputation, decreased pedal pulses in the right foot and mild clubbing of the fingernails. 1+ edema of RLE NEUROLOGIC: Nonfocal Assessment/Plan: Abdominal pain, nausea, vomiting - rule out acute bacterial peritonitis, more likely gastroenteritis Chronic hypoxic respiratory failure COPD, not in acute exacerbation Type 2 diabetes Coronary artery disease Hypertension Renal artery stenosis Status post L BKA Renal consulted Treated with Rocephin in ED, no further abx at this time Peritoneal fluid pending culture, but initial studies show low likelihood of infection Replaced K+, repeat this afternoon If feeling better and K+ improved, will dc later tonight vs tomorrow DNR EDER CHAO MD Apr 25, 2018 08:15
[2018-04-25] MEDS ORDERED: CLOPIDOGREL BISULFATE 75 MG TABLET PO SCH (09:00)
[2018-04-25] MEDS ORDERED: ASPIRIN CHEWABLE 81 MG TABLET. PO SCH (09:00)
[2018-04-25] MEDS ORDERED: CYANOCOBALAMIN (VITAMIN B-12) 1,000 MCG TABLET. PO SCH (09:00)
[2018-04-25] MEDS ORDERED: LABETALOL HCL 100 MG TABLET. PO SCH (09:00)
[2018-04-25] MEDS ORDERED: ISOSORBIDE MONONITRATE ER 30 MG TAB.ER.24H PO SCH (09:00)
[2018-04-25] MEDS: IPRATRPIUM/ALBUTEROL 0.5/2.5MG 3 ML NEBU. NEB SCH ×2 (09:00→15:12)
[2018-04-25 11:00] VITALS: BP 105/49
--- NOTE | 2018-04-25 14:01 | PDOC2 ---
CONSULT Date of Consult Date of Consult DATE: 04/25/18 TIME: 13:48 Reason for Consult Reason for Consult: ESRD on PD Identification/Chief Complaint Chief Complaint N.V/Abd Pain- resolved Source Source: Chart review, Patient History of Present Illness Reason for Visit: Pt is a 72-year-old white female ESRD on peritoneal dialysis, COPD, coronary artery disease, HTN, ANNA, type 2 diabetes, paroxysmal A. fib, status post left BKA, presented to the emergency room for nausea, vomiting, abdominal pain. She was concerned for possible infection given her history of peritoneal dialysis. Labs in the emergency room are significant for mild leukocytosis with left shift , elevated ESR, hypokalemia at 2.7. CT abdomen and pelvis was unremarkable for acute findings. Peritoneal fluid was clear, colorless with no nucleated cells and is pending culture. She was admitted for further evaluation and management. Denies fever, Chills. C/O sore throat, congestion. Denies shortness of breath , cough. C/o some nausea, vomiting, diarrhea - all improved, Currently denies abdominal pain She wa son HD prior to PD, states doing much better on PD. She wants to go home and do PD tonite at home Past Medical History Cardiovascular: AFIB, CAD, CHF, HTN, Valve insufficiency, Other Pulmonary: COPD CENTRAL NERVOUS SYSTEM: Other GI: No pertinent hx Heme/Onc: Anemia NOS Musculoskeletal: Osteoarthritis Renal/: Chronic renal failure Endocrine: Diabetes Past Surgical History Past Surgical History: Other Family History Family History: Other Social History ALCOHOL: none Drugs: None Lives: with Family Domestic Violence: Neg Current Problem List Problem List Problems Medical Problems: (1) Abdominal pain Status: Acute (2) Hypokalemia Status: Acute (3) Nausea vomiting and diarrhea Status: Acute (4) Peritoneal dialysis catheter in place Status: Acute Current Medications Current Medications Current Medications Ondansetron HCl (Zofran) 4 mg 1X ONCE IV Last administered on 04/25/18at 02:01 ; Start 04/25/18 at 02:00; Stop 04/25/18 at 02:01; Status DC Potassium Chloride (Klor-Con) 20 meq 1X ONCE PO Last administered on at 02:49; Start 04/25/18 at 02:30; Stop 04/25/18 at 02:31; Status DC Ceftriaxone Sodium (Rocephin) 1 gm 1X ONCE IVP Last administered on at 04:19; Start 04/25/18 at 04:00; Stop 04/25/18 at 04:01; Status DC Ondansetron HCl (Zofran) 4 mg PRN Q8HRS PRN IV NAUSEA/VOMITING; Start at 04:45 Potassium Chloride (Klor-Con) 40 meq 1X ONCE PO Last administered on at 09:29; Start 04/25/18 at 08:30; Stop 04/25/18 at 08:31; Status DC Aspirin (Children'S Aspirin) 81 mg DAILY PO Last administered on 04/25/18at 09: 27; Start 04/25/18 at 09:00 Atorvastatin Calcium (Lipitor) 40 mg HS PO ; Start 04/25/18 at 21:00 Clopidogrel Bisulfate (Plavix) 75 mg DAILY PO Last administered on 04/25/18at 09:27; Start 04/25/18 at 09:00 Cyanocobalamin (Vitamin B-12) 2,500 mcg DAILY PO Last administered on at 09:28; Start 04/25/18 at 09:00 Acetaminophen/ Hydrocodone Bitart (Lortab 5/325) 1 tab PRN TID PRN PO PAIN; Start 04/25/18 at 08:15 Albuterol/ Ipratropium (Duoneb) 3 ml RTQID NEB ; Start 04/25/18 at 09:00 Labetalol HCl (Trandate) 100 mg BID PO Last administered on 04/25/18at 09:27; Start 04/25/18 at 09:00 Diltiazem HCl (Cardizem 24hr Cd) 240 mg DAILY PO Last administered on at 09:27; Start 04/25/18 at 09:00 Isosorbide Mononitrate (Imdur) 120 mg DAILY PO Last administered on 04/25/18at 09:28; Start 04/25/18 at 09:00 Active Scripts Active Duoneb 0.5-3(2.5) Mg/3 Ml (Albuterol/Ipratropium) 3 Ml Ampul.neb 3 Ml NEB RTQID 30 Days Diltiazem 24Hr Cd (Diltiazem HCl) 240 Mg Cap.er.24h 240 Mg PO DAILY 30 Days Reported Calcium Acetate 667 Mg Tablet 667 Mg PO TIDWMEALS Labetalol Hcl 100 Mg Tablet 100 Mg PO BID Hydralazine Hcl 25 Mg Tablet 1 Tab PO TID Vitamin B-12 (Cyanocobalamin (Vitamin B-12)) 1,000 Mcg Tablet 2,500 Mcg PO DAILY Calcium (Calcium Carbonate) 600 Mg Tablet 600 Mg PO DAILY Magnesium (Magnesium Oxide) 400 Mg Capsule 1 Cap PO DAILY Eliquis (Apixaban) 5 Mg Tablet 5 Mg PO [id number] Hydrocodone-Apap 5-325 (Hydrocodone Bit/Acetaminophen) 1 Each Tablet 1 Tab PO PRN TID PRN Fish Oil 1,000 Mg Softgel ([place]-3 Fatty Acids/Fish Oil) 1 Each Capsule 1 Each PO DAILY Paz-C 1,000 Mg Tablet (Ascorbate Calcium/Bioflavonoid) 1 Each Tablet 1 Each PO DAILY Atorvastatin Calcium 40 Mg Tablet 40 Mg PO HS Vitamin D3 (Cholecalciferol (Vitamin D3)) 1,000 Unit Capsule 2,000 Unit PO DAILY Aspirin 81 Mg Tab.chew 81 Mg PO DAILY Imdur (Isosorbide Mononitrate) 120 Mg Tab.er.24h 120 Mg PO DAILY Clopidogrel (Clopidogrel Bisulfate) 75 Mg Tablet 75 Mg PO DAILY Allergies Allergies: Coded Allergies: Penicillins (Verified Allergy, Intermediate, Hives, 11/11/17) itching bacitracin (Verified Allergy, Intermediate, 11/07/17) erythromycin base (Verified Allergy, Intermediate, Hives, 11/11/17) neomycin (Verified Allergy, Intermediate, 11/07/17) niacin (Verified Allergy, Intermediate, 11/07/17) polymyxin B (Verified Allergy, Intermediate, 11/07/17) ROS Review of System As per HPI Physical Exam Physical Exam GEN: Alert, oriented, no acute distress NECK: Supple HEENT- OM moist LUNGS: Decreased bilaterally, otherwise clear CARDIOVASCULAR: RRR, 2/6 systolic murmur. ABDOMEN: Soft and nontender, nondistended, no rebound or guarding, PD cath in place EXTREMITIES: left BKA . 1+ edema of RLE NEUROLOGIC: Nonfocal No Dowd Vital Signs Vital Signs Date Time Temp Pulse Resp B/P (MAP) Pulse Ox O2 Delivery O2 Flow Rate FiO2 04/25/18 11:40 97 Room Air 04/25/18 11:00 98.8 78 18 105/49 (67) 98.8 Assessment & Plan ESRD- On PD Continue with home Prescription if not dced Discussed with body trimmer Abdominal pain/N/V- Resolved No e/o peritonitis, PD fluid clear Hypokalemia- Replace Not On Diuretics as per Home meds HTN- BP Low Normal Chronic hypoxic respiratory failure/COPD Type 2 diabetes Coronary artery disease Renal artery stenosis Dc as per primary Labs Labs Laboratory Tests Test 04/25/18 01:42 04/25/18 02:19 White Blood Count 13.1 x10^3/uL (4.0-11.0) Red Blood Count 3.85 x10^6/uL (3.50-5.40) Hemoglobin 11.6 g/dL (12.0-15.5) Hematocrit 32.2 % (36.0-47.0) Mean Corpuscular Volume 84 fL (79-100) Mean Corpuscular Hemoglobin 30 pg (25-35) Mean Corpuscular Hemoglobin Concent 36 g/dL (31-37) Red Cell Distribution Width 14.7 % (11.5-14.5) Platelet Count 351 x10^3/uL (140-400) Neutrophils (%) (Auto) 80 % (31-73) Lymphocytes (%) (Auto) 8 % (24-48) Monocytes (%) (Auto) 8 % (0-9) Eosinophils (%) (Auto) 4 % (0-3) Basophils (%) (Auto) 0 % (0-3) Neutrophils # (Auto) 10.4 x10^3uL (1.8-7.7) Lymphocytes # (Auto) 1.1 x10^3/uL (1.0-4.8) Monocytes # (Auto) 1.0 x10^3/uL (0.0-1.1) Eosinophils # (Auto) 0.5 x10^3/uL (0.0-0.7) Basophils # (Auto) 0.0 x10^3/uL (0.0-0.2) Erythrocyte Sedimentation Rate 39 (0-25) Sodium Level 139 mmol/L (136-145) Potassium Level 2.7 mmol/L (3.5-5.1) Chloride Level 99 mmol/L (98-107) Carbon Dioxide Level 27 mmol/L (21-32) Anion Gap 13 (6-14) Blood Urea Nitrogen 33 mg/dL (7-20) Creatinine 4.2 mg/dL (0.6-1.0) Estimated GFR (Cockcroft-Gault) 10.4 BUN/Creatinine Ratio 8 (6-20) Glucose Level 139 mg/dL (70-99) Calcium Level 9.2 mg/dL (8.5-10.1) Total Bilirubin 0.8 mg/dL (0.2-1.0) Aspartate Amino Transf (AST/SGOT) 14 U/L (15-37) Alanine Aminotransferase (ALT/SGPT) 12 U/L (14-59) Alkaline Phosphatase 78 U/L (46-116) Troponin I Quantitative 0.033 ng/mL (0.000-0.055) C-Reactive Protein, Quantitative 9.3 mg/L (0-3.3) Total Protein 6.6 g/dL (6.4-8.2) Albumin 2.7 g/dL (3.4-5.0) Albumin/Globulin Ratio 0.7 (1.0-1.7) Lipase 82 U/L (73-393) Body Fluid Source Perit dialysate Body Fluid Color Colorless Body Fluid Clarity Clear Body Fluid Nucleated Cells 0 /cmm Body Fluid Total RBCs Counted 0 /cmm Laboratory Tests Test 04/25/18 01:42 04/25/18 02:19 White Blood Count 13.1 x10^3/uL (4.0-11.0) Red Blood Count 3.85 x10^6/uL (3.50-5.40) Hemoglobin 11.6 g/dL (12.0-15.5) Hematocrit 32.2 % (36.0-47.0) Mean Corpuscular Volume 84 fL (79-100) Mean Corpuscular Hemoglobin 30 pg (25-35) Mean Corpuscular Hemoglobin Concent 36 g/dL (31-37) Red Cell Distribution Width 14.7 % (11.5-14.5) Platelet Count 351 x10^3/uL (140-400) Neutrophils (%) (Auto) 80 % (31-73) Lymphocytes (%) (Auto) 8 % (24-48) Monocytes (%) (Auto) 8 % (0-9) Eosinophils (%) (Auto) 4 % (0-3) Basophils (%) (Auto) 0 % (0-3) Neutrophils # (Auto) 10.4 x10^3uL (1.8-7.7) Lymphocytes # (Auto) 1.1 x10^3/uL (1.0-4.8) Monocytes # (Auto) 1.0 x10^3/uL (0.0-1.1) Eosinophils # (Auto) 0.5 x10^3/uL (0.0-0.7) Basophils # (Auto) 0.0 x10^3/uL (0.0-0.2) Erythrocyte Sedimentation Rate 39 (0-25) Sodium Level 139 mmol/L (136-145) Potassium Level 2.7 mmol/L (3.5-5.1) Chloride Level 99 mmol/L (98-107) Carbon Dioxide Level 27 mmol/L (21-32) Anion Gap 13 (6-14) Blood Urea Nitrogen 33 mg/dL (7-20) Creatinine 4.2 mg/dL (0.6-1.0) Estimated GFR (Cockcroft-Gault) 10.4 BUN/Creatinine Ratio 8 (6-20) Glucose Level 139 mg/dL (70-99) Calcium Level 9.2 mg/dL (8.5-10.1) Total Bilirubin 0.8 mg/dL (0.2-1.0) Aspartate Amino Transf (AST/SGOT) 14 U/L (15-37) Alanine Aminotransferase (ALT/SGPT) 12 U/L (14-59) Alkaline Phosphatase 78 U/L (46-116) Troponin I Quantitative 0.033 ng/mL (0.000-0.055) C-Reactive Protein, Quantitative 9.3 mg/L (0-3.3) Total Protein 6.6 g/dL (6.4-8.2) Albumin 2.7 g/dL (3.4-5.0) Albumin/Globulin Ratio 0.7 (1.0-1.7) Lipase 82 U/L (73-393) Body Fluid Source Perit dialysate Body Fluid Color Colorless Body Fluid Clarity Clear Body Fluid Nucleated Cells 0 /cmm Body Fluid Total RBCs Counted 0 /cmm Review All relevant outside records, renal labs, imaging studies, telemetry/EKG's were reviewed. YURIDIA IBARRA MD Apr 25, 2018 14:01
[2018-04-25] MEDS ORDERED: ATORVASTATIN CALCIUM 40 MG TABLET. PO SCH (21:00)
== END 2018-04-25 16:15 | disposition home or self-care (01) | DRG 391 ==
LOC: ER 01:37 → 5 SOUTH 03:45 → 5 NORTH 04:58
PROVIDERS: ADMIT Family Medicine; ATTEND Family Medicine
DX: R10.9 Unspecified abdominal pain (principal); N18.6 End stage renal disease; I13.2 Hypertensive heart and chronic kidney disease with heart failure and with stage 5 chronic kidney disease, or end stage renal disease; J96.11 Chronic respiratory failure with hypoxia; I25.10 Atherosclerotic heart disease of native coronary artery without angina pectoris; I50.9 Heart failure, unspecified; J44.9 Chronic obstructive pulmonary disease, unspecified; E11.22 Type 2 diabetes mellitus with diabetic chronic kidney disease; I70.1 Atherosclerosis of renal artery; I48.0 Paroxysmal atrial fibrillation; E78.00 Pure hypercholesterolemia, unspecified; E87.6 Hypokalemia; E78.5 Hyperlipidemia, unspecified; Z66 Do not resuscitate; M19.90 Unspecified osteoarthritis, unspecified site; D72.829 Elevated white blood cell count, unspecified; Z89.612 Acquired absence of left leg above knee; I25.2 Old myocardial infarction; Z95.1 Presence of aortocoronary bypass graft; Z89.512 Acquired absence of left leg below knee; Z99.2 Dependence on renal dialysis; Z88.1 Allergy status to other antibiotic agents; Z88.0 Allergy status to penicillin; Z88.8 Allergy status to other drugs, medicaments and biological substances
CPT/HCPCS: 36415; 74176; 80053; 83690; 84132; 84484; 85025; 85651; 86140; 87070; 89050; 94640; 94760; J0696; J2405; J7620

== ENCOUNTER 2018-05-11 22:48 | Emergency (ER) | payer MEDICARE, OTHER ==
[~2018-05-11] VITALS: Ht 170.2 cm; Wt 70.3 kg
[~2018-05-11 22:48] MED LIST changes: -AMLO10TA6 PO; +AMLO10TA8 PO; +AMLO5TAB10 PO; -AMLO5TAB7 PO; -CALC667T PO; +CALC667T4 PO; +CYAN-25 PO; -CYAN10005 PO; +RANI-376 PO; -RANI150T21 PO
[2018-05-11] MEDS ORDERED: ALPRAZolam 0.5 MG TABLET PO ONE (23:15)
[2018-05-11] MEDS ORDERED: oxyCODONE/APAP 5/325 1 TAB TABLET PO ONE (23:15)
[2018-05-12] MEDS ORDERED: fentaNYL PF VIAL 100 MCG/2 ML VIAL IM ONE (00:15)
[2018-05-12 00:53] VITALS: BP 145/65
--- NOTE | 2018-05-12 00:57 | PHYS DOC ---
Past Medical History Past Medical History: CAD, CHF, COPD, Diabetes-Type II, High Cholesterol, Heart Disease, Hypertension, [place], Renal Failure, Other Additional Past Medical Histor: Carpal Tunnel Past Surgical History: Coronary Bypass Surgery, Pacemaker, Other Additional Past Surgical Histo: LEFT AKA; right carpal tunnel release, STENTS, [facility] [employer] Alcohol Use: None Drug Use: None Adult General Chief Complaint Chief Complaint: LOWER EXT PAIN HPI HPI Patient is a 72 year old female who presents with phantom limb pain to her left leg. The patient had an amputation in 1980. She states that she has had pain similar to this in the past but this is worse. She states that she took hydrocodone this afternoon and has not had relief from the pain. Review of Systems Review of Systems Constitutional: Denies fever or chills [] Respiratory: Denies cough or shortness of breath [] Cardiovascular: No additional information not addressed in HPI [] Musculoskeletal: See history of present illness Integument: Denies rash or skin lesions [] Neurologic: Denies headache, focal weakness or sensory changes [] Endocrine: Denies polyuria or polydipsia [] All other systems were reviewed and found to be within normal limits, except as documented in this note. Current Medications Current Medications Current Medications Medications (Trade) Dose Ordered Sig/Shilo Start Time Stop Time Status Last Admin Dose Admin Alprazolam (Xanax) 0.5 mg 1X ONCE 05/11/18 23:15 05/11/18 23:16 DC 05/11/18 23:19 0.5 MG Fentanyl Citrate (Fentanyl 2ml Vial) 50 mcg 1X ONCE 05/12/18 00:15 05/12/18 00:16 DC 05/12/18 00:19 50 MCG Oxycodone/ Acetaminophen (Percocet 5/325) 1 tab 1X ONCE 05/11/18 23:15 05/11/18 23:16 DC 05/11/18 23:19 1 TAB Allergies Allergies Allergies Coded Allergies Type Severity Reaction Last Updated Verified Penicillins Allergy Intermediate Hives 11/11/17 Yes bacitracin Allergy Intermediate 11/07/17 Yes erythromycin base Allergy Intermediate Hives 11/11/17 Yes neomycin Allergy Intermediate 11/07/17 Yes niacin Allergy Intermediate 11/07/17 Yes polymyxin B Allergy Intermediate 11/07/17 Yes Physical Exam Physical Exam Constitutional: Well developed, well nourished, no acute distress, non-toxic appearance. [] Cardiovascular:Heart rate regular rhythm, no murmur [] Lungs & Thorax: Bilateral breath sounds clear to auscultation [] Abdomen: Bowel sounds normal, soft, no tenderness, no masses, no pulsatile masses. [] Skin: Warm, dry, no erythema, no rash. [] Back: No tenderness, no CVA tenderness. [] Extremities: tenderness to a well-healed left stump with no erythema, calor or ecchymosis noted, ROM intact, no edema. [] Neurologic: Alert and oriented X 3, normal motor function, normal sensory function, no focal deficits noted. [] Psychologic: Affect normal, judgement normal, mood normal. [] Current Patient Data Vital Signs Vital Signs Date Time Temp Pulse Resp B/P (MAP) Pulse Ox O2 Delivery O2 Flow Rate FiO2 05/12/18 00:19 18 97 Room Air 05/11/18 22:48 98.3 103 143/84 (103) 98.3 EKG EKG [] Radiology/Procedures Radiology/Procedures [] Course & Med Decision Making Course & Med Decision Making Pertinent Labs and Imaging studies reviewed. (See chart for details) The patient was given Ativan and Percocet in the emergency department. She is still complaining of pain. She was then given IM fentanyl to control her symptoms. She is to follow-up with her primary care provider tomorrow if her pain is not controlled. Dragon Disclaimer Dragon Disclaimer This electronic medical record was generated, in whole or in part, using a voice recognition dictation system. Departure Departure Impression: Primary Impression: Phantom limb pain Disposition: 01 HOME, SELF-CARE Condition: STABLE Referrals: CHRISTINA ROSENBAUM MD (PCP) Patient Instructions: Phantom Limb Pain Additional Instructions: Follow-up with your primary care provider tomorrow for further evaluation of this limb pain. You were given narcotic pain medication in the emergency department this evening. Do not drive or operate heavy machinery. You may resume your at home pain medication tomorrow morning. OLENA LUA APRN May 12, 2018 00:57
== END 2018-05-12 01:20 | disposition home or self-care (01) ==
LOC: ER 22:48
DX: G54.6 Phantom limb syndrome with pain (principal); I13.0 Hypertensive heart and chronic kidney disease with heart failure and stage 1 through stage 4 chronic kidney disease, or unspecified chronic kidney disease; E11.22 Type 2 diabetes mellitus with diabetic chronic kidney disease; N18.9 Chronic kidney disease, unspecified; I50.9 Heart failure, unspecified; J44.9 Chronic obstructive pulmonary disease, unspecified; E78.00 Pure hypercholesterolemia, unspecified; I25.10 Atherosclerotic heart disease of native coronary artery without angina pectoris; I25.2 Old myocardial infarction; Z95.5 Presence of coronary angioplasty implant and graft; Z95.0 Presence of cardiac pacemaker; Z95.1 Presence of aortocoronary bypass graft; Z88.0 Allergy status to penicillin; Z88.1 Allergy status to other antibiotic agents
CPT/HCPCS: 96372; 99284; J3010

== ENCOUNTER → 2018-07-23 | Outpatient (CLI) | payer MEDICARE, OTHER ==
[~2018-07-23] MED LIST changes: -CYAN-25 PO; +CYAN10005 PO; +CYCL10TA2 PO; +PRED20TA PO
== END | disposition home or self-care (01) ==
LOC: LAB 15:44
PROVIDERS: ATTEND Internal Medicine Nephrology
DX: E87.6 Hypokalemia (principal)
CPT/HCPCS: 36415; 84132

== ENCOUNTER 2018-08-14 17:06 | Emergency (ER) | payer MEDICARE, OTHER ==
[~2018-08-14] VITALS: Ht 170.2 cm; Wt 66.7 kg
[~2018-08-14 17:06] MED LIST changes: -CYCL10TA2 PO; -PRED20TA PO
[2018-08-14 17:13] VITALS: BP 161/72
[2018-08-14] MEDS ORDERED: HYDROcodone/APAP 5/325MG 1 TAB TABLET PO ONE (17:45)
--- NOTE | 2018-08-14 18:11 | PHYS DOC ---
Past Medical History Past Medical History: CAD, CHF, COPD, Diabetes-Type II, High Cholesterol, Heart Disease, Hypertension, [place], Renal Failure Additional Past Medical Histor: Carpal Tunnel (FELIPE DAVILA) Past Surgical History: Angioplasty, Coronary Bypass Surgery, Pacemaker, Other Additional Past Surgical Histo: LEFT AKA;r carpal tunne,STENTS [facility] [employer] (FELIPE DAVILA) Alcohol Use: None Drug Use: None (FELIPE DAVILA) Adult General Chief Complaint Chief Complaint: UPPER EXTREMITY PAIN HPI HPI Patient is a 72 year old F who states that earlier today she developed pain in her L forearm, wrist and hand and has not had any known injury. She does peritoneal dialysis at home but today had to go to the dialysis center to get a shot of some sort and while she was there she told the nurse about her arm hurting and they recommended she get that "checked out" so she came here to ER. (FELIPE DAVILA) Review of Systems Review of Systems Constitutional: Denies fever or chills Respiratory: Denies cough or shortness of breath Cardiovascular: Denies chest pain GI: Denies abdominal pain, nausea, vomiting, bloody stools or diarrhea : Denies dysuria or hematuria Musculoskeletal: Denies back pain. Reports L arm pain Integument: Denies rash or skin lesions. Multiple skin spots Neurologic: Denies headache, focal weakness or sensory changes All other systems were reviewed and found to be within normal limits, except as documented in this note. (FELIPE DAVILA) Current Medications Current Medications Current Medications Medications (Trade) Dose Ordered Sig/Shilo Start Time Stop Time Status Last Admin Dose Admin Acetaminophen/ Hydrocodone Bitart (Lortab 5/325) 1 tab 1X ONCE 08/14/18 17:45 08/14/18 17:46 DC 08/14/18 17:44 1 TAB (REGGIE MONTGOMERY DO) Allergies Allergies Allergies Coded Allergies Type Severity Reaction Last Updated Verified Penicillins Allergy Intermediate Hives 11/11/17 Yes bacitracin Allergy Intermediate 11/07/17 Yes erythromycin base Allergy Intermediate Hives 11/11/17 Yes neomycin Allergy Intermediate 11/07/17 Yes niacin Allergy Intermediate 11/07/17 Yes polymyxin B Allergy Intermediate 11/07/17 Yes (REGGIE MONTGOMERY DO) Physical Exam Physical Exam Constitutional: Well developed, well nourished, no acute distress, non-toxic appearance. Neck: Normal range of motion, no tenderness, supple, no stridor. Cardiovascular:Heart rate regular rhythm, no murmur Lungs & Thorax: Bilateral breath sounds clear to auscultation Abdomen: Bowel sounds normal, soft, no tenderness, no masses, no pulsatile masses. Skin: Warm, dry, no erythema, no rash. Mild edema noted of L arm. Back: No tenderness, no CVA tenderness. Extremities: Tenderness of L forearm, wrist and hand. Neurologic: Alert and oriented X 3, normal motor function, normal sensory function, no focal deficits noted. Psychologic: Affect normal, judgement normal, mood normal. (FELIPE DAVILA) EKG EKG [] (FELIPE DAVILA) Radiology/Procedures Radiology/Procedures Xrays do not show any acute fractures but significant arthritis. (FELIPE DAVILA) Radiology/Procedures Left wrist, 3 views, 08/14/2018: HISTORY: Pain The bony structures are demineralized. No recent fracture or dislocation is identified. There is severe degenerative change at the first CMC joint with periarticular calcifications. IMPRESSION: 1. Demineralization. 2. Severe degenerative change at the first CMC joint. 3. No acute bony abnormality is detected. Left forearm, 2 views, 08/14/2018: The bony structures are demineralized. No fracture or destructive bony lesion is seen. There is mild spurring at the elbow joint. Numerous surgical clips are present in the soft tissues along the volar aspect of the forearm. IMPRESSION: No acute bony abnormality is detected. Electronically signed by: Asim Wright MD (08/15/2018 7:47 AM) [facility] (REGGIE MONTGOMERY DO) Course & Med Decision Making Course & Med Decision Making Pertinent Labs and Imaging studies reviewed. (See chart for details) Pt's xrays neg for fracture, but discussed wrist sprain or strain is possible. Pt to f/u with orthopedics if symptoms persist. Pt placed in velcro wrist splint for comfort. (FELIPE DAVILA) Dragon Disclaimer Dragon Disclaimer This electronic medical record was generated, in whole or in part, using a voice recognition dictation system. (FELIPE DAVILA) Departure Departure Impression: Primary Impression: Sprain of upper arm, left Disposition: HOME, SELF-CARE Condition: IMPROVED Referrals: CHRISTINA ROSENBAUM MD (PCP) LEON SHANKAR II, MD Patient Instructions: Wrist Sprain with [facility] Additional Instructions: Rest, Ice, Compress and Elevate Follow up with your PCP or orthopedics, Dr. Shankar. Scripts Prednisone (PREDNISONE) 20 Mg Tablet 1 TAB PO BID, #10 TAB Prov: FELIPE DAVILA 08/14/18 Cyclobenzaprine Hcl (CYCLOBENZAPRINE HCL) 10 Mg Tablet 1 TAB PO TID, #12 TAB Prov: FELIPE DAVILA 08/14/18 Attending Signature Attending Signature I have reviewed the PA/CASHIER's note and plan of care for Dr. Carl. Dr. Carl was available for consultation as needed at all times during the patient's visit in the emergency department. I agree with the clinical impression, plan and disposition. (REGGIE MONTGOMERY DO) FELIPE DAVILA Aug 14, 2018 18:11 REGGIE MONTGOMERY DO Oct 03, 2018 12:03
[2018-08-14] MEDS ORDERED: PRED20TA PO (18:20)
[2018-08-14] MEDS ORDERED: CYCL10TA2 PO (18:20)
--- NOTE | 2018-08-15 07:50 | RAD ---
Left wrist, 3 views, 08/14/2018: HISTORY: Pain The bony structures are demineralized. No recent fracture or dislocation is identified. There is severe degenerative change at the first CMC joint with periarticular calcifications. IMPRESSION: 1. Demineralization. 2. Severe degenerative change at the first CMC joint. 3. No acute bony abnormality is detected. Left forearm, 2 views, 08/14/2018: The bony structures are demineralized. No fracture or destructive bony lesion is seen. There is mild spurring at the elbow joint. Numerous surgical clips are present in the soft tissues along the volar aspect of the forearm. IMPRESSION: No acute bony abnormality is detected. Electronically signed by: Asim Wright MD (08/15/2018 7:47 AM) [facility]
== END 2018-08-14 18:48 | disposition home or self-care (01) ==
LOC: ER 17:06
DX: S63.92XA Sprain of unspecified part of left wrist and hand, initial encounter (principal); I13.10 Hypertensive heart and chronic kidney disease without heart failure, with stage 1 through stage 4 chronic kidney disease, or unspecified chronic kidney disease; E11.22 Type 2 diabetes mellitus with diabetic chronic kidney disease; N18.9 Chronic kidney disease, unspecified; Z99.2 Dependence on renal dialysis; J44.9 Chronic obstructive pulmonary disease, unspecified; E78.00 Pure hypercholesterolemia, unspecified; I25.10 Atherosclerotic heart disease of native coronary artery without angina pectoris; I25.2 Old myocardial infarction; Z95.1 Presence of aortocoronary bypass graft; Z95.5 Presence of coronary angioplasty implant and graft; Z95.0 Presence of cardiac pacemaker; Z88.0 Allergy status to penicillin; Z88.1 Allergy status to other antibiotic agents; Z88.8 Allergy status to other drugs, medicaments and biological substances; X58.XXXA Exposure to other specified factors, initial encounter; Y93.89 Activity, other specified; Y92.89 Other specified places as the place of occurrence of the external cause; Y99.8 Other external cause status
CPT/HCPCS: 29125; 73090; 73110; 99284-25

== ENCOUNTER 2018-10-14 17:35 | Inpatient (IN) | payer MEDICARE, OTHER ==
[~2018-10-14] VITALS: Ht 167.6 cm; Wt 67.1 kg
[~2018-10-14 17:35] MED LIST changes: +CYCL10TA2 PO; +PRED20TA PO
[2018-10-14 18:27] LABS: BASO # 0.1 x10^3/uL (0.0-0.2); BASO % 1 % (0-3); EOS # 0.1 x10^3/uL (0.0-0.7); EOS % 2 % (0-3); HEMATOCRIT 40.7 % (36.0-47.0); HEMOGLOBIN 13.8 g/dL (12.0-15.5); LYMPH % 14 % (24-48); MEAN CORPUSCULAR HEMOGLOBIN 32 pg (25-35); MEAN CORPUSCULAR HGB CONC 34 g/dL (31-37); MEAN CORPUSCULAR VOLUME 93 fL (79-100); MONO # 0.5 x10^3/uL (0.0-1.1); MONO % 7 % (0-9); NEUT # 5.4 x10^3uL (1.8-7.7); NEUT % 77 % (31-73); PLATELET COUNT 401 x10^3/uL (140-400); RED BLOOD COUNT 4.36 x10^6/uL (3.50-5.40); WHITE BLOOD COUNT 7.1 x10^3/uL (4.0-11.0)
[2018-10-14] MEDS ORDERED: IV NORMAL SALINE 500ML BAG 500 ML IV ONE (18:30)
[2018-10-14] MEDS ORDERED: PROCHLORPERAZINE 10 MG/2 ML VIAL. IV ONE (18:30)
[2018-10-14] MEDS ORDERED: MECLIZINE HCL 12.5 MG TABLET. PO ONE (18:30)
[2018-10-14] MEDS ORDERED: diphenhydrAMINE 50 MG/ML VIAL IVP ONE (18:30)
[2018-10-14 18:40] LABS: PROTHROMBIN TIME PATIENT 12.7 SEC (11.7-14.0)
[2018-10-14 18:45] LABS: CALCIUM 10.7 mg/dL (8.5-10.1); CREATININE 9.7 mg/dL (0.6-1.0); POTASSIUM 3.9 mmol/L (3.5-5.1)
[2018-10-14] MEDS ORDERED: TETRACAINE 0.5% OPHTH SOLUTION 4ML BOTTLE. OS ONE (18:45)
[2018-10-14 18:57] LABS: ALBUMIN 3.2 g/dL (3.4-5.0); ALBUMIN/GLOBULIN RATIO 0.8 (1.0-1.7); TOTAL BILIRUBIN 0.5 mg/dL (0.2-1.0); TOTAL PROTEIN 7.2 g/dL (6.4-8.2)
[2018-10-14 19:25] LABS: BASE EXCESS ABG -2 mmol/L (-3-3); HCO3 ABG 22 mmol/L (21-28); PCO2 ABG 36 mmHg (35-46); PO2 ABG 77 mmHg (65-108); SAT O2 ABG 95 % (92-99)
[2018-10-14 19:28] LABS: FIO2 ABG 21
--- NOTE | 2018-10-14 19:28 | RAD ---
CT brain without contrast. HISTORY: Headache, vertigo CT scan of the brain was done without contrast. Comparison is made with a study from May 07. There is no intracranial hemorrhage or subdural hematoma. There is mild atrophy. Sinuses are clear. An acute CVA is not identified. There is microvascular ischemic change with decreased density in the white matter. There is no mass or shift of the midline. IMPRESSION: 1. No intracranial hemorrhage or acute CVA noted. 2. Atrophy and chronic white matter changes. RS Compliance Statement: One or more of the following individualized dose reduction techniques were utilized for this examination: 1. Automated exposure control 2. Adjustment of the mA and/or kV according to patient size 3. Use of iterative reconstruction technique Electronically signed by: Julian Ortega MD (10/14/2018 7:26 PM) [facility]
[2018-10-14] MEDS ORDERED: IV NORMAL SALINE 1000ML BAG 1,000 ML IV ONE (19:30)
--- NOTE | 2018-10-14 19:58 | RAD ---
Portable AP chest. HISTORY: Renal failure AP view was taken of the chest. Heart is normal in size. There are changes from prior bypass. There is no effusion. There is a granuloma on the left. Left pacemaker is unchanged. There is not evidence of heart failure. There are no confluent infiltrates. IMPRESSION: 1. No acute chest disease. Electronically signed by: Julian Ortega MD (10/14/2018 7:55 PM) [facility]
--- NOTE | 2018-10-14 20:18 | PHYS DOC ---
Past Medical History Past Medical History: CAD, CHF, COPD, Diabetes-Type II, High Cholesterol, Heart Disease, Hypertension, [place], Renal Failure Additional Past Medical Histor: Carpal Tunnel Past Surgical History: Angioplasty, Coronary Bypass Surgery, Pacemaker, Other Additional Past Surgical Histo: LEFT AKA;r carpal tunne,STENTS [facility] [employer] PACEMAKER Alcohol Use: None Drug Use: None Adult General Chief Complaint Chief Complaint: BLURRED/DOUBLE VISION HPI HPI Patient is a 73 year old female who is brought in by with a chief complaint of double vision and headache blurry vision vertigo. Onset about 12 hours ago around 8 AM or 10 AM maybe no leg or arm symptomssymptoms. She says that when she looks up and when she looks to the left she sees double vision she sees to stop signs when she looks at a stop sign here in the emergency room. She says she does not usually get headaches. She does not wear contacts she does use peritoneal dialysis each night at home she has been compliant with that no chest pain no shortness of breath no other symptoms Review of Systems Review of Systems Constitutional: Denies fever or chills [] Eyes: Denies change in visual acuity, redness, or eye pain [] HENT: Denies nasal congestion or sore throat [] Respiratory: Denies cough or shortness of breath [] Mild nausea Musculoskeletal: Denies back pain or joint pain [] Integument: Denies rash or skin lesions [] Neurologic: All other systems were reviewed and found to be within normal limits, except as documented in this note. Current Medications Current Medications Current Medications Medications (Trade) Dose Ordered Sig/Shilo Start Time Stop Time Status Last Admin Dose Admin Diphenhydramine HCl (Benadryl) 25 mg 1X ONCE 10/14/18 18:30 10/14/18 18:31 DC 10/14/18 19:00 25 MG Meclizine HCl (Antivert) 25 mg 1X ONCE 10/14/18 18:30 10/14/18 18:31 DC 10/14/18 19:03 25 MG Prochlorperazine Edisylate (Compazine) 10 mg 1X ONCE 10/14/18 18:30 19 18:31 DC 10/14/18 18:59 10 MG Sodium Chloride 1,000 ml @ 1,000 mls/hr 1X ONCE 10/14/18 19:30 10/14/18 20:29 Tetracaine HCl (Tetracaine) 1 drop 1X ONCE 10/14/18 18:45 10/14/18 18:46 DC Allergies Allergies Allergies Coded Allergies Type Severity Reaction Last Updated Verified Penicillins Allergy Intermediate Hives 11/11/17 Yes bacitracin Allergy Intermediate 11/07/17 Yes erythromycin base Allergy Intermediate Hives 11/11/17 Yes neomycin Allergy Intermediate 11/07/17 Yes niacin Allergy Intermediate 11/07/17 Yes polymyxin B Allergy Intermediate 11/07/17 Yes Physical Exam Physical Exam Constitutional: Well developed, well nourished, no acute distress, non-toxic appearance. [] HENT: Normocephalic, atraumatic, bilateral external ears normal, oropharynx moist, no oral exudates, nose normal. [] Eyes: PERRLA, EOMI, conjunctiva normal, no discharge. [] Neck: Normal range of motion, no tenderness, supple, no stridor. [] Cardiovascular:Heart rate regular rhythm, no murmur [] Lungs & Thorax: Bilateral breath sounds clear to auscultation [] Abdomen: Bowel sounds normal, soft, no tenderness, no masses, no pulsatile masses. [] Skin: Warm, dry, no erythema, no rash. [] Extremities: No tenderness, no cyanosis, no clubbing, ROM intact, no edema. [] Neurologic there appears to be a sixth nerve palsy left eye she is unable to bury sclera when looking to the left she says she has double vision when she looks to the left. There may be really subtle ptosis of the left eyelid possibly as well, however she can lift up her eyelids equally as well Psychologic: Affect normal, judgement normal, mood normal. [] Current Patient Data Vital Signs Vital Signs Date Time Temp Pulse Resp B/P (MAP) Pulse Ox O2 Delivery O2 Flow Rate FiO2 10/14/18 19:27 Room Air 10/14/18 17:40 97.0 94 20 148/78 (101) 96 97.0 Lab Values Laboratory Tests Test 10/14/18 17:48 10/14/18 19:26 White Blood Count 7.1 x10^3/uL (4.0-11.0) Red Blood Count 4.36 x10^6/uL (3.50-5.40) Hemoglobin 13.8 g/dL (12.0-15.5) Hematocrit 40.7 % (36.0-47.0) Mean Corpuscular Volume 93 fL (79-100) Mean Corpuscular Hemoglobin 32 pg (25-35) Mean Corpuscular Hemoglobin Concent 34 g/dL (31-37) Red Cell Distribution Width 17.0 % (11.5-14.5) H Platelet Count 401 x10^3/uL (140-400) H Neutrophils (%) (Auto) 77 % (31-73) H Lymphocytes (%) (Auto) 14 % (24-48) L Monocytes (%) (Auto) 7 % (0-9) Eosinophils (%) (Auto) 2 % (0-3) Basophils (%) (Auto) 1 % (0-3) Neutrophils # (Auto) 5.4 x10^3uL (1.8-7.7) Lymphocytes # (Auto) 1.0 x10^3/uL (1.0-4.8) Monocytes # (Auto) 0.5 x10^3/uL (0.0-1.1) Eosinophils # (Auto) 0.1 x10^3/uL (0.0-0.7) Basophils # (Auto) 0.1 x10^3/uL (0.0-0.2) Prothrombin Time 12.7 SEC (11.7-14.0) Prothrombin Time INR 1.0 (0.8-1.1) Sodium Level 140 mmol/L (136-145) Potassium Level 3.9 mmol/L (3.5-5.1) Chloride Level 99 mmol/L (98-107) Carbon Dioxide Level 25 mmol/L (21-32) Anion Gap 16 (6-14) H Blood Urea Nitrogen 35 mg/dL (7-20) H Creatinine 9.7 mg/dL (0.6-1.0) H Estimated GFR (Cockcroft-Gault) 4.0 BUN/Creatinine Ratio 4 (6-20) L Glucose Level 138 mg/dL (70-99) H Calcium Level 10.7 mg/dL (8.5-10.1) H Total Bilirubin 0.5 mg/dL (0.2-1.0) Aspartate Amino Transferase (AST) 11 U/L (15-37) L Alanine Aminotransferase (ALT) 15 U/L (14-59) Alkaline Phosphatase 65 U/L (46-116) Creatine Kinase 40 U/L (26-192) Troponin I Quantitative 0.038 ng/mL (0.000-0.055) Total Protein 7.2 g/dL (6.4-8.2) Albumin 3.2 g/dL (3.4-5.0) L Albumin/Globulin Ratio 0.8 (1.0-1.7) L O2 Saturation 95 % (92-99) Arterial Blood pH 7.41 (7.35-7.45) Arterial Blood pCO2 at Patient Temp 36 mmHg (35-46) Arterial Blood pO2 at Patient Temp 77 mmHg (65-108) Arterial Blood HCO3 22 mmol/L (21-28) Arterial Blood Base Excess -2 mmol/L (-3-3) FiO2 21 Laboratory Tests 10/14/18 17:48 Laboratory Tests 10/14/18 17:48 EKG EKG [] Interpretation Time: EKG shows a sinus tach rate 105 there is a right bundle branch block pattern in light of that no obvious STEMI was identified this is interpreted by me time of encounter Radiology/Procedures Radiology/Procedures [] CT scan of the brain was done without contrast. Comparison is made with a study from May 07. There is no intracranial hemorrhage or subdural hematoma. There is mild atrophy. Sinuses are clear. An acute CVA is not identified. There is microvascular ischemic change with decreased density in the white matter. There is no mass or shift of the midline. IMPRESSION: 1. No intracranial hemorrhage or acute CVA noted. 2. Atrophy and chronic white matter changes. RS Compliance Statement: One or more of the following individualized dose reduction techniques were utilized for this examination: 1. Automated exposure control 2. Adjustment of the mA and/or kV according to patient size 3. Use of iterative reconstruction technique Electronically signed by: Julian Ortega MD (10/14/2018 7:26 PM) [facility] Impressions: IMPRESSION: 1. No acute chest disease. Electronically signed by: Julian Ortega MD (10/14/2018 7:55 PM) [facility] DICTATED and SIGNED BY: JULIAN ORTEGA MD DATE: 10/14/181954 Course & Med Decision Making Course & Med Decision Making Pertinent Labs and Imaging studies reviewed. (See chart for details) []This is a 73-year-old female with multiple medical problems. Tibial dialysis CHF etc. presenting with chief complaint of double vision when she looks to the left. She may have a subtle sixth nerve palsy. I spoke with Dr. PERALTA from neurology who thought it would I agree would be reasonable to admit for MRI. 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 Pritchard who is agreeable to the plan. For now no peritoneal dialysis needed this night due to stable electrolytes and vitals. Patient is aware of the plan Dragon Disclaimer Dragon Disclaimer This electronic medical record was generated, in whole or in part, using a voice recognition dictation system. Departure Departure Impression: Primary Impression: Diplopia Disposition: ADMITTED INPATIENT Admitting Physician: Andrew Pritchrad Referrals: EDER CHAO MD (PCP) NIHSS Stroke Scale NIH Stroke Scale: NIH Stroke Scale Response (Comments) Value Level of Consciousness: 0 Alert/Responsive 0 LOC Questions: 0 Answers both correctly 0 LOC Commands: 0 Performs both tasks 0 Best Gaze: 1 Partial gaze palsy 1 Visual: 0 No visual loss 0 Facial Palsy: 0 Normal, symmetrical 0 Motor - Left Arm 0 No drift 0 Motor - Right Arm 0 No drift 0 Motor - Left Leg 5 Amputation 0 Motor: Right Leg 0 No drift 0 Limb Ataxia: 0 Absent 0 Sensory: 0 No loss 0 Best Language: 0 Normal 0 Dysathria: 0 Normal 0 Extinction and Inattention: 0 Normal 0 Total 1 MEREDITH LEO MD Oct 14, 2018 20:18
[2018-10-14] MEDS ORDERED: ASPIRIN CHEWABLE 81 MG TABLET. PO ONE (21:30)
[2018-10-15 00:05] VITALS: BP 153/58
[2018-10-15 03:53] VITALS: BP 141/66
--- NOTE | 2018-10-15 04:30 | EKG ---
[facility] [address] [place] [address] Test Date: 2018-10-14 Test Time: 18:38:36 Pat Name: MARISA RIOJAS Department: Room: Gender: F [employer]: : 1945 Requested By: MEREDITH LEO Order Number: [id number] Reading MD: Measurements Intervals [place] Rate: 105 P: 0 MD: 150 QRS: -60 QRSD: 118 T: -2 QT: 380 QTc: 507 Interpretive Statements SINUS TACHYCARDIA ATRIAL PREMATURE COMPLEX(ES) ABNORMAL LEFT AXIS DEVIATION R-S TRANSITION ZONE IN V LEADS DISPLACED TO THE RIGHT INCOMPLETE RIGHT BUNDLE BRANCH BLOCK RVH WITH REPOLARIZATION ABNORMALITY ABNORMAL ECG RI6.01 No previous ECG available for comparison
[2018-10-15 07:00] VITALS: BP 121/54
[2018-10-15] MEDS ORDERED: DIALYSIS PATIENT. MC PRN (08:45)
[2018-10-15] MEDS ORDERED: HYDROcodone/APAP 5/325MG 1 TAB TABLET PO PRN (08:45)
--- NOTE | 2018-10-15 08:53 | PDOC ---
Provider Note Provider Note [id number] CHRISTINA ROSENBAUM MD Oct 15, 2018 08:53
[2018-10-15] MEDS ORDERED: MAGNESIUM OXIDE 400 MG TABLET PO SCH (09:00)
[2018-10-15] MEDS ORDERED: CYANOCOBALAMIN (VITAMIN B-12) 1,000 MCG TABLET. PO SCH (09:00)
[2018-10-15] MEDS: IPRATRPIUM/ALBUTEROL 0.5/2.5MG 3 ML NEBU. NEB SCH ×3 (09:00→16:09)
[2018-10-15] MEDS ORDERED: CALCIUM CARBONATE 500 MG TABLET PO SCH (09:00)
[2018-10-15] MEDS ORDERED: ISOSORBIDE MONONITRATE ER 30 MG TAB.ER.24H PO SCH (09:00)
[2018-10-15] MEDS ORDERED: CLOPIDOGREL BISULFATE 75 MG TABLET PO SCH (09:00)
[2018-10-15] MEDS ORDERED: CHOLECALCIFEROL (VITAMIN D3) 1,000 UNIT TABLET PO SCH (09:00)
[2018-10-15] MEDS ORDERED: ASPIRIN CHEWABLE 81 MG TABLET. PO SCH (09:00)
[2018-10-15] MEDS ORDERED: LABETALOL HCL 100 MG TABLET. PO SCH (09:00)
--- NOTE | 2018-10-15 09:06 | HP ---
ADMIT DATE: 10/15/2018 CHIEF COMPLAINT: Blurry vision, left eye. HISTORY OF PRESENT ILLNESS: The patient is a 73-year-old white female who came to the ER with a several-hour history of blurry vision, double vision that she felt was more left-sided visual cedeno. ER evaluation initially raised the question of left sixth nerve palsy, but her double vision seems better and she is simply sees blurriness and lines on the vision of the left eye without any pain or injury. She has had no known Ophthalmology problems in the past. PAST SURGICAL HISTORY: Well documented in the old record. ALLERGIES: PENICILLIN AND ERYTHROMYCIN. She is on home peritoneal dialysis on multiple meds including aspirin and Plavix for vascular diseases and CAD. SOCIAL HISTORY: Nonsmoker. Lives with family. Nondrinker. FAMILY HISTORY: Unremarkable. REVIEW OF SYSTEMS: No other problems. OBJECTIVE: ENT: Pupils equal, round and reactive. EOMs appear to be full. Visual cedeno appear to be intact. Vision is somewhat blurry in the mid visual field, the left eye and normal in the right. No nystagmus is seen. BREASTS: Normal. NECK: No bruits, masses or nodes. LUNGS: Clear. CARDIOVASCULAR: Regular rate. No irregular beat or murmur. ABDOMEN: Soft and nontender. EXTREMITIES: Poor pedal pulse on the right leg. Left leg has a BKA. Lots of diffuse ecchymoses from meds. NEUROLOGIC: Physiologic and nonfocal, alert, oriented, responsive. IMPRESSION: Blurred vision in the left eye with a mid visual field defect sounds more like a retinal problem perhaps a small hemorrhage, no evidence of cranial nerve problems or extraocular motor problems at this time. PLAN: We will see if the eye doctors can see dilate the retina today. We will hold on MRI, it is not necessary in my opinion. TOSHIA KELLY MD DR: ZENOBIA/concetta JOB#: [id number] / [id number]
[2018-10-15] MEDS: CYCLOBENZAPRINE 10 MG TABLET. PO SCH ×2 (10:19→14:00)
[2018-10-15 11:00] VITALS: BP 117/53
--- NOTE | 2018-10-15 12:52 | NUR ---
SW following pt for dc needs. Chart reviewed and discussed with RN. RN reported she will be to making OP eye appointment for pt. No SW needs noted.
[2018-10-15] MEDS: CALCIUM ACETATE 667 MG CAPSULE PO SCH ×2 (13:45→17:48)
[2018-10-15 15:00] VITALS: BP 110/55
--- NOTE | 2018-10-15 15:37 | PDOC2 ---
NEUROLOGY CONSULT Date of Admission Date of Admission DATE: 10/15/18 TIME: 15:21 Reason for Consult Reason for Consult: IMPRESSION: Visual field deficit. Headache. CAD. CHF. DM. HTN. HLD. COPD. Renal failure. Pacemaker in site. Left BKA. RECOMMENDATIONS/PLAN: Continue Plavix 75 mg daily. Continue ASA 81 mg daily. Continue Lipitor HS. Patient declined brain MRI, on the other hand, unknown her pacemaker MRI co mpatibility. CTA not able to perform due to renal failure. Creatinine 9.7. Carotid A US + Doppler. Please consult Nephrology. See ophthalmology. HISTORY OF THE PRESENT ILLNESS: This is a 73-year-old female patient with above medical diseases developed symptoms of visual disturbances described as seeing people's face with part missing below the nose. She stated only her left eye had such symptoms but right eye is seen intact. She came to the ER of [facility] after 12 hours after her symptoms onset. She stated her symptoms were improved afterwards but not resolved. No acute sensory or motor deficits. PAST SURGICAL HISTORY: Angioplasty, Coronary Bypass Surgery, Pacemaker. LEFT BKA;r carpal tunnel, [facility] PACEMAKER ALLERGIES: PENICILLIN AND ERYTHROMYCIN. FAMILY HISTORY: Non contributory. MEDICATIONS: Refer to MAR SOCIAL HISTORY: Lives with her family. Denies current smoking, drinking, and illicit drug use. REVIEW OF SYSTEMS: Constitutional: No malnutrition or cachexia. Head: No traumatic brain or head injury. Skin: No edema, or rash. Ear: No infection. Eyes: No vision loss or color blindness. Nose: No bleeding or purulent discharges. Hearing: mild hearing decrease. Neck: No injury. Breast: No history of cancer, masses,or discharges. Cardiac: CHF. Pacemaker Placement, HTN, HLD. Pulmonary: COPD. GI: No GI ulcer, GI bleeding. Urinary/genital: UTI. Endocrinologic: Diabetes Mellitus. Skeletomuscular: Left BKA. Neurological: see HP. Psychiatric: Denies drug use/abuse. Otherwise, not [id number] review of systems. PHYSICAL EXAMINATION: General appearance is in no acute distress. HEENT: Normocephalic and nontraumatic. Eyes, nose, ears, and throat are unremarkable. Neck is supple. No lymphadenopathy. No crepitus. Cardiovascular: S1, S2, regular rate and rhythm. Pulmonary: Clear to auscultation bilaterally. Abdomen: Bowel sounds are positive. Abdomen is soft, nontender, and nondistended. Extremities: No rash, lesions, or edema. No restriction of range of motion NEUROLOGICAL EXAMINATION: Alert Oriented to time, place and person. PERRL. EOMI. CN: no focal findings. Muscle tone: within normal. Muscle strength: 5 UE and right LE. Left BKA. DTR: 1-2 Plantar reflex: Flexor response in right foot. Gait: not examined in bed. Sensory exam: no abnormal findings. No cerebellar signs elicited. F-T-N test accurate. Current Medications Current Medications Current Medications Prochlorperazine Edisylate (Compazine) 10 mg 1X ONCE IV Last administered on 10/14/18at 18:59; Start 10/14/18 at 18:30; Stop 10/14/18 at 18:31; Status DC Diphenhydramine HCl (Benadryl) 25 mg 1X ONCE IVP Last administered on 10/14/18at 19:00; Start 10/14/18 at 18:30; Stop 10/14/18 at 18:31; Status DC Sodium Chloride 500 ml @ 500 mls/hr 1X ONCE IV Last administered on 10/14/18at 18:56; Start 10/14/18 at 18:30; Stop 10/14/18 at 19:29; Status DC Meclizine HCl (Antivert) 25 mg 1X ONCE PO Last administered on 10/14/18at 19:03; Start 10/14/18 at 18:30; Stop 10/14/18 at 18:31; Status DC Tetracaine HCl (Tetracaine) 1 drop 1X ONCE OS Last administered on 10/14/18at 18:45; Start 10/14/18 at 18:45; Stop 10/14/18 at 18:46; Status DC Sodium Chloride 1,000 ml @ 1,000 mls/hr 1X ONCE IV ; Start 10/14/18 at 19:30; Stop 10/14/18 at 21:03; Status DC Aspirin (Children'S Aspirin) 324 mg 1X ONCE PO Last administered on 10/14/18at 22:52; Start 10/14/18 at 21:30; Stop 10/14/18 at 21:31; Status DC Aspirin (Children'S Aspirin) 81 mg DAILY PO Last administered on 10/15/18at 10:18; Start 10/15/18 at 09:00 Atorvastatin Calcium (Lipitor) 40 mg HS PO ; Start 10/15/18 at 21:00 Clopidogrel Bisulfate (Plavix) 75 mg DAILY PO Last administered on 10/15/18 10:20; Start 10/15/18 at 09:00 Cyanocobalamin (Vitamin B-12) 2,500 mcg DAILY PO Last administered on 10/15/18 10:21; Start 10/15/18 at 09:00 Cyclobenzaprine HCl (Flexeril) 10 mg TID PO Last administered on 10/15/18 10:19; Start 10/15/18 at 09:00 Acetaminophen/ Hydrocodone Bitart (Lortab 5/325) 1 tab PRN TID PRN PO MODERATE PAIN; Start 10/15/18 at 08:45 Albuterol/ Ipratropium (Duoneb) 3 ml RTQID NEB Last administered on 10/15/18 12:16; Start 10/15/18 at 09:00 Calcium Acetate (Phoslo) 667 mg TIDWMEALS PO Last administered on 10/15/18 13:45; Start 10/15/18 at 12:00 Calcium Carbonate/ Glycine (Oscal) 500 mg DAILY PO Last administered on 10/15/18 10:20; Start 10/15/18 at 09:00 Vitamin D (Vitamin D3) 2,000 unit DAILY PO Last administered on 10/15/18 10:21; Start 10/15/18 at 09:00 Diltiazem HCl (Cardizem 24hr Cd) 240 mg DAILY PO Last administered on 10/15/18 10:18; Start 10/15/18 at 09:00 Isosorbide Mononitrate (Imdur) 120 mg DAILY PO Last administered on 10/15/18 10:20; Start 10/15/18 at 09:00 Labetalol HCl (Trandate) 100 mg BID PO Last administered on 10/15/18 10:21; Start 10/15/18 at 09:00 Magnesium Oxide (Magnesium Oxide) 400 mg DAILY PO Last administered on 10/15/18 10:20; Start 10/15/18 at 09:00 Info (PHARMACY MONITORING -- do not chart) 1 each PRN DAILY PRN MC SEE COMMENTS; Start 10/15/18 at 08:45 Active Scripts Active Prednisone 20 Mg Tablet 1 Tab PO BID Duoneb 0.5-3(2.5) Mg/3 Ml (Albuterol/Ipratropium) 3 Ml Ampul.neb 3 Ml NEB RTQID 30 Days Diltiazem 24Hr Cd (Diltiazem HCl) 240 Mg Cap.er.24h 240 Mg PO DAILY 30 Days Reported Calcium Acetate 667 Mg Tablet 667 Mg PO TIDWMEALS Labetalol Hcl 100 Mg Tablet 100 Mg PO BID Vitamin B-12 (Cyanocobalamin (Vitamin B-12)) 1,000 Mcg Tablet 2,500 Mcg PO DAILY Calcium (Calcium Carbonate) 600 Mg Tablet 600 Mg PO DAILY Magnesium (Magnesium Oxide) 400 Mg Capsule 1 Cap PO DAILY Hydrocodone-Apap 5-325 (Hydrocodone Bit/Acetaminophen) 1 Each Tablet 1 Tab PO PRN TID PRN Fish Oil 1,000 Mg Softgel (Aguilar-3 Fatty Acids/Fish Oil) 1 Each Capsule 1 Each PO DAILY Paz-C 1,000 Mg Tablet (Ascorbate Calcium/Bioflavonoid) 1 Each Tablet 1 Each PO DAILY Atorvastatin Calcium 40 Mg Tablet 40 Mg PO HS Vitamin D3 (Cholecalciferol (Vitamin D3)) 1,000 Unit Capsule 2,000 Unit PO DAILY Aspirin 81 Mg Tab.chew 81 Mg PO DAILY Imdur (Isosorbide Mononitrate) 120 Mg Tab.er.24h 120 Mg PO DAILY Clopidogrel (Clopidogrel Bisulfate) 75 Mg Tablet 75 Mg PO DAILY Allergies Allergies: Allergies Coded Allergies Type Severity Reaction Last Updated Verified Penicillins Allergy Intermediate Hives 11/11/17 Yes bacitracin Allergy Intermediate 11/07/17 Yes erythromycin base Allergy Intermediate Hives 11/11/17 Yes neomycin Allergy Intermediate 11/07/17 Yes niacin Allergy Intermediate 11/07/17 Yes polymyxin B Allergy Intermediate 11/07/17 Yes ROS Review of System The patient denies any associated fevers, chills, headache, ear pain, rhinorrhea, sore throat, stiff neck, productive cough, chest pain, shortness of breath, back or flank pain, abdominal pain, nausea, vomiting, diarrhea, constipation, dysuria, rash, numbness, weakness, tingling, incontinence, difficulty ambulating, or diaphoresis. Physical Exam Physical Exam General: Well developed, well nourished, no acute distress, well appearing HEENT: Pupils equally round and reactive to light, EOMI, no discharge, normal conjunctiva Neck: Supple, no nuchal rigidity, no JVD, trachea midline, no tenderness Cardiac: RRR, no murmurs, no gallops, no rubs Chest/Lungs: CTAB, no wheeze, no rhonchi, no crackles Abdomen: soft, non-distended, no guarding, no peritoneal signs, non-tender Back: No tenderness Extremities: no edema, pulses intact, non-tender,capillary refill <3 sec bilateral upper and lower extremities, Neuro: Alert and oriented x 4, no focal deficits, normal speech Vitals Vitals: Vital Signs Date Time Temp Pulse Resp B/P (MAP) Pulse Ox O2 Delivery O2 Flow Rate FiO2 10/15/18 15:00 98.0 80 14 110/55 (73) 99 Room Air 98.0 Labs Labs Laboratory Tests Test 10/14/18 17:48 10/14/18 19:26 10/15/18 13:20 White Blood Count 7.1 x10^3/uL (4.0-11.0) Red Blood Count 4.36 x10^6/uL (3.50-5.40) Hemoglobin 13.8 g/dL (12.0-15.5) Hematocrit 40.7 % (36.0-47.0) Mean Corpuscular Volume 93 fL (79-100) Mean Corpuscular Hemoglobin 32 pg (25-35) Mean Corpuscular Hemoglobin Concent 34 g/dL (31-37) Red Cell Distribution Width 17.0 % (11.5-14.5) Platelet Count 401 x10^3/uL (140-400) Neutrophils (%) (Auto) 77 % (31-73) Lymphocytes (%) (Auto) 14 % (24-48) Monocytes (%) (Auto) 7 % (0-9) Eosinophils (%) (Auto) 2 % (0-3) Basophils (%) (Auto) 1 % (0-3) Neutrophils # (Auto) 5.4 x10^3uL (1.8-7.7) Lymphocytes # (Auto) 1.0 x10^3/uL (1.0-4.8) Monocytes # (Auto) 0.5 x10^3/uL (0.0-1.1) Eosinophils # (Auto) 0.1 x10^3/uL (0.0-0.7) Basophils # (Auto) 0.1 x10^3/uL (0.0-0.2) Prothrombin Time 12.7 SEC (11.7-14.0) Prothromb Time International Ratio 1.0 (0.8-1.1) Sodium Level 140 mmol/L (136-145) Potassium Level 3.9 mmol/L (3.5-5.1) Chloride Level 99 mmol/L (98-107) Carbon Dioxide Level 25 mmol/L (21-32) Anion Gap 16 (6-14) Blood Urea Nitrogen 35 mg/dL (7-20) Creatinine 9.7 mg/dL (0.6-1.0) Estimated GFR (Cockcroft-Gault) 4.0 BUN/Creatinine Ratio 4 (6-20) Glucose Level 138 mg/dL (70-99) Calcium Level 10.7 mg/dL (8.5-10.1) Total Bilirubin 0.5 mg/dL (0.2-1.0) Aspartate Amino Transf (AST/SGOT) 11 U/L (15-37) Alanine Aminotransferase (ALT/SGPT) 15 U/L (14-59) Alkaline Phosphatase 65 U/L (46-116) Creatine Kinase 40 U/L (26-192) Troponin I Quantitative 0.038 ng/mL (0.000-0.055) Total Protein 7.2 g/dL (6.4-8.2) Albumin 3.2 g/dL (3.4-5.0) Albumin/Globulin Ratio 0.8 (1.0-1.7) O2 Saturation 95 % (92-99) Arterial Blood pH 7.41 (7.35-7.45) Arterial Blood pCO2 at Patient Temp 36 mmHg (35-46) Arterial Blood pO2 at Patient Temp 77 mmHg (65-108) Arterial Blood HCO3 22 mmol/L (21-28) Arterial Blood Base Excess -2 mmol/L (-3-3) FiO2 21 Thyroid Stimulating Hormone (TSH) 1.336 uIU/mL (0.358-3.74) Laboratory Tests Test 10/14/18 17:48 10/14/18 19:26 10/15/18 13:20 White Blood Count 7.1 x10^3/uL (4.0-11.0) Red Blood Count 4.36 x10^6/uL (3.50-5.40) Hemoglobin 13.8 g/dL (12.0-15.5) Hematocrit 40.7 % (36.0-47.0) Mean Corpuscular Volume 93 fL (79-100) Mean Corpuscular Hemoglobin 32 pg (25-35) Mean Corpuscular Hemoglobin Concent 34 g/dL (31-37) Red Cell Distribution Width 17.0 % (11.5-14.5) Platelet Count 401 x10^3/uL (140-400) Neutrophils (%) (Auto) 77 % (31-73) Lymphocytes (%) (Auto) 14 % (24-48) Monocytes (%) (Auto) 7 % (0-9) Eosinophils (%) (Auto) 2 % (0-3) Basophils (%) (Auto) 1 % (0-3) Neutrophils # (Auto) 5.4 x10^3uL (1.8-7.7) Lymphocytes # (Auto) 1.0 x10^3/uL (1.0-4.8) Monocytes # (Auto) 0.5 x10^3/uL (0.0-1.1) Eosinophils # (Auto) 0.1 x10^3/uL (0.0-0.7) Basophils # (Auto) 0.1 x10^3/uL (0.0-0.2) Prothrombin Time 12.7 SEC (11.7-14.0) Prothromb Time International Ratio 1.0 (0.8-1.1) Sodium Level 140 mmol/L (136-145) Potassium Level 3.9 mmol/L (3.5-5.1) Chloride Level 99 mmol/L (98-107) Carbon Dioxide Level 25 mmol/L (21-32) Anion Gap 16 (6-14) Blood Urea Nitrogen 35 mg/dL (7-20) Creatinine 9.7 mg/dL (0.6-1.0) Estimated GFR (Cockcroft-Gault) 4.0 BUN/Creatinine Ratio 4 (6-20) Glucose Level 138 mg/dL (70-99) Calcium Level 10.7 mg/dL (8.5-10.1) Total Bilirubin 0.5 mg/dL (0.2-1.0) Aspartate Amino Transf (AST/SGOT) 11 U/L (15-37) Alanine Aminotransferase (ALT/SGPT) 15 U/L (14-59) Alkaline Phosphatase 65 U/L (46-116) Creatine Kinase 40 U/L (26-192) Troponin I Quantitative 0.038 ng/mL (0.000-0.055) Total Protein 7.2 g/dL (6.4-8.2) Albumin 3.2 g/dL (3.4-5.0) Albumin/Globulin Ratio 0.8 (1.0-1.7) O2 Saturation 95 % (92-99) Arterial Blood pH 7.41 (7.35-7.45) Arterial Blood pCO2 at Patient Temp 36 mmHg (35-46) Arterial Blood pO2 at Patient Temp 77 mmHg (65-108) Arterial Blood HCO3 22 mmol/L (21-28) Arterial Blood Base Excess -2 mmol/L (-3-3) FiO2 21 Thyroid Stimulating Hormone (TSH) 1.336 uIU/mL (0.358-3.74) SOHAIL PERALTA MD Oct 15, 2018 15:37
--- NOTE | 2018-10-15 16:15 | RAD ---
Carotid ultrasound, 10/15/2018: HISTORY: Left blurred vision Duplex evaluation of the carotid arteries and neck was performed including grayscale, color-flow and spectral Doppler analysis. The study was compromised by patient motion. On the right, there are mild scattered plaques in the common carotid artery and mild to moderate plaquing at the carotid bifurcation. The peak systolic velocity in the right internal carotid artery is 106 cm/s with an end-diastolic velocity of 5 cm/s and an internal carotid to common carotid artery ratio of 0.9. These Doppler findings suggest luminal narrowing in the 0-50 percent diameter range. On the left, there is more extensive plaquing in the common carotid artery and at the carotid bifurcation. The lumen at the bifurcation is poorly defined due calcific plaquing and shadowing. The peak systolic velocity in the left internal carotid artery is 77 cm per sec with an end-diastolic velocity of 14 cm/s and an internal carotid to common carotid artery ratio of 2.1. The ratio suggest luminal narrowing in the 50-70 percent diameter range. There is a prominent velocity acceleration in the left external carotid artery up to 202 cm/s suggesting moderate stenosis at its origin. Antegrade flow is present in both vertebral arteries in the neck. Incidental note is made of a 3.0 cm predominantly solid mass in the left lobe of the thyroid gland. IMPRESSION: 1. Moderate atherosclerotic plaquing, left greater than right, with luminal narrowing at the proximal right internal carotid artery level in the 0-50 percent diameter range. 2. The left carotid bifurcation is poorly defined due to plaquing and difficulties with patient cooperation. Underlying luminal narrowing of the internal carotid artery is estimated in the 50-[address] angiography may be useful for further evaluation, if clinically indicated. 3. Doppler evidence of high-grade stenosis at the left external carotid artery origin. 4. Left thyroid nodule. Note: Stenosis calculations for CT, MRA and conventional angiography are based upon determination of the distal ICA diameter in accordance with the NASCET methodology. Stenosis calculations for Doppler studies are derived from validated velocity criteria which are known to correlate with NASCET methodology of determining stenosis. Electronically signed by: Asim Wright MD (10/15/2018 4:12 PM) [facility]
[2018-10-15 19:00] VITALS: BP 142/72
--- NOTE | 2018-10-15 19:33 | NUR ---
Discharge Note: MARISA RIOJAS Discharge instructions and discharge home medications reviewed with Patient and a copy given. All questions have been answered and understanding verbalized. The following instructions and handouts were given: follow up instructions Discontinued lines and drains: 20 gauge left ac, tip intact. patient tolerated well. Patient discharged to home with self care via son.
[2018-10-15] MEDS ORDERED: ATORVASTATIN CALCIUM 40 MG TABLET. PO SCH (21:00)
--- NOTE | 2018-10-16 08:49 | PDOC ---
Provider Note Provider Note [id number] CHRISTINA ROSENBAUM MD Oct 16, 2018 08:49
--- NOTE | 2018-10-16 09:03 | DS ---
DATE OF DISCHARGE: 10/15/2018 HOSPITAL SUMMARY: A 73-year-old white female came in with decreased vision in the left eye that she initially felt was double vision, but later was just some blurriness in the middle aspect of the left visual field. She had full extraocular motions on exam and no evidence of visual field cut. CBC and chemistry profile were unremarkable except consistent with chronic renal failure. TSH was normal. B12 was high. CT scan showed no evidence of new abnormalities and carotid Doppler studies showed moderate narrowing on the left greater than right. Left carotid estimated in the 50-70% range. Ophthalmology consultation was unavailable that day and she was comfortable to be discharged and followed as an outpatient as this is likely an eye problem and not an intracranial problem. FINAL DIAGNOSES: 1. Decreased vision, left eye, etiology undetermined. 2. Bilateral carotid stenosis. 3. End-stage renal disease, on peritoneal dialysis. OPERATIONS, PROCEDURES, COMPLICATIONS: None. CONSULTATIONS: Dr. Alvarez. DISPOSITION: All home meds remain the same. Office followup with the coke handling supervisor in 24 hours to examine the retina. Further evaluation based on results and further symptoms. CHRISTINA ROSENBAUM MD DR: AVNI/concetta JOB#: [id number] / [id number]
== END 2018-10-15 19:35 | disposition home or self-care (01) | DRG 124 ==
LOC: ER 17:35 → ED HOLD 19:44 → 6 SOUTH 23:20
PROVIDERS: ADMIT Family Medicine; ATTEND Family Medicine
DX: H53.142 Visual discomfort, left eye (principal); N18.6 End stage renal disease; I13.2 Hypertensive heart and chronic kidney disease with heart failure and with stage 5 chronic kidney disease, or end stage renal disease; I65.23 Occlusion and stenosis of bilateral carotid arteries; H53.40 Unspecified visual field defects; I25.10 Atherosclerotic heart disease of native coronary artery without angina pectoris; I50.9 Heart failure, unspecified; E78.5 Hyperlipidemia, unspecified; J44.9 Chronic obstructive pulmonary disease, unspecified; H54.7 Unspecified visual loss; E78.00 Pure hypercholesterolemia, unspecified; E11.22 Type 2 diabetes mellitus with diabetic chronic kidney disease; Z89.512 Acquired absence of left leg below knee; Z79.02 Long term (current) use of antithrombotics/antiplatelets; Z95.5 Presence of coronary angioplasty implant and graft; Z95.1 Presence of aortocoronary bypass graft; Z89.612 Acquired absence of left leg above knee; Z99.2 Dependence on renal dialysis; Z79.82 Long term (current) use of aspirin
CPT/HCPCS: 36415; 36600; 70450; 71045; 80053; 82550; 82607; 82805; 84443; 84484; 85025; 85610; 93005; 93880; 94640; J0780; J1200; J7040; J7620; J8597

== ENCOUNTER 2018-11-13 22:29 | Emergency (ER) | payer MEDICARE, OTHER | END 2018-11-13 23:00 | disposition left against medical advice (07) | LOC: ER 22:29 | DX: I10 Essential (primary) hypertension (principal); Z53.21 Procedure and treatment not carried out due to patient leaving prior to being seen by health care provider ==

== ENCOUNTER 2018-12-07 06:08 | Inpatient (IN) | payer MEDICARE, OTHER ==
[~2018-12-07] VITALS: Ht 170.2 cm; Wt 69.9 kg
[~2018-12-07 06:08] MED LIST changes: +CYAN-25 PO; -CYAN10005 PO
[2018-12-07 07:00] LABS: BASO # 0.1 x10^3/uL (0.0-0.2); BASO % 1 % (0-3); EOS # 0.4 x10^3/uL (0.0-0.7); EOS % 3 % (0-3); HEMATOCRIT 31.2 % (36.0-47.0); HEMOGLOBIN 10.8 g/dL (12.0-15.5); LYMPH # 1.6 x10^3/uL (1.0-4.8); LYMPH % 13 % (24-48); MEAN CORPUSCULAR HEMOGLOBIN 30 pg (25-35); MEAN CORPUSCULAR HGB CONC 35 g/dL (31-37); MEAN CORPUSCULAR VOLUME 87 fL (79-100); MONO # 1.2 x10^3/uL (0.0-1.1); MONO % 9 % (0-9); NEUT # 8.9 x10^3/uL (1.8-7.7); NEUT % 73 % (31-73); PLATELET COUNT 387 x10^3/uL (140-400); RED BLOOD COUNT 3.58 x10^6/uL (3.50-5.40); RED CELL DISTRIBUTION WIDTH 17.1 % (11.5-14.5); WHITE BLOOD COUNT 12.2 x10^3/uL (4.0-11.0)
[2018-12-07 07:22] LABS: ALBUMIN 2.7 g/dL (3.4-5.0); ALBUMIN/GLOBULIN RATIO 0.7 (1.0-1.7); CALCIUM 9.3 mg/dL (8.5-10.1); GFR 4.3; TOTAL BILIRUBIN 0.5 mg/dL (0.2-1.0); TOTAL PROTEIN 6.8 g/dL (6.4-8.2)
[2018-12-07 07:24] LABS: POTASSIUM 2.3 mmol/L (3.5-5.1)
[2018-12-07] MEDS ORDERED: POTASSIUM CHLORIDE 20 MEQ TABLET.ER. PO ONE (07:30)
--- NOTE | 2018-12-07 08:03 | RAD ---
PQRS Compliance Statement: One or more of the following individualized dose reduction techniques were utilized for this examination: 1. Automated exposure control 2. Adjustment of the mA and/or kV according to patient size 3. Use of iterative reconstruction technique CT LUMBAR SPINE RECONSTRUCTION, CT ABDOMEN PELVIS WO CONTRAST Clinical Indication: Left flank and back pain. Sudden onset of back pain. Comparison: CT abdomen and pelvis without contrast May 07, 2018. Technique: Helical CT imaging of the abdomen and pelvis is performed without IV or oral contrast. Using source images, small [id number] multiplanar reformats of the lumbar spine. Findings: Evaluation of solid organs and bowel is limited without oral and IV contrast, decreasing sensitivity for detection of pathology. Lung bases essentially clear. Cardiac pacer wires. Coronary artery disease. Cardiac size normal. There is mild abdominal and pelvic ascites, probably related to patient's peritoneal dialysis. Severe atherosclerotic calcification of the abdominal aorta and its branches. There is no aneurysm. Calcified granulomas in the liver and the spleen. Cholelithiasis. No peripancreatic inflammation. Left adrenal gland hyperplasia. Atrophic right kidney. There is mild left hydronephrosis. No radiopaque ureteral calculus is definitely seen. Question whether there is a tiny minimally radiodense calculus in the proximal left ureter, image 88 Stomach unremarkable. No dilated small bowel. The appendix is normal. Sigmoid colon diverticulosis. Prominent intramural fat of the ascending, transverse, and descending colon may be sequela of prior inflammation. No acute colon wall thickening is appreciated. Urinary bladder is normal. Atrophic uterus. There is left hip screw and intramedullary stephanie. Degenerative arthropathy of the right hip. No acute compression fracture of the lumbar spine. The alignment is maintained. There is degenerative spondylosis. L1/L2: There appears to be a large posterior disc bulge and there is central canal stenosis that is at least moderate. Finding is unchanged. There does not appear to be high-grade neural foraminal narrowing. L2/L3: There is broad-based posterior disc bulge resulting in probably moderate central canal stenosis. Finding is unchanged. There does not appear to be high-grade neural foraminal narrowing. L3/L4: There is posterior disc bulge resulting in mild to moderate central canal stenosis. There does not appear to be high-grade neural foraminal narrowing. IMPRESSION: 1. There is mild left hydronephrosis. Radiopaque ureteral calculus is not identified. Question whether there is a tiny minimally radiodense calculus in the proximal left ureter. Alternatively hydronephrosis could be due to recently passed calculus. Ureteral stricture another consideration. 2. Cholelithiasis. 3. Sigmoid colon diverticulosis. 4. Abdominal and pelvic ascites likely related to peritoneal dialysis. 5. No acute fracture of the lumbar spine. 6. Lumbar degenerative spondylosis as detailed above is unchanged from prior study. Electronically signed by: Tyshawn Strong MD (12/07/2018 8:00 AM) [facility]
--- NOTE | 2018-12-07 08:27 | PHYS DOC ---
Past Medical History Past Medical History: CAD, CHF, COPD, Diabetes-Type II, High Cholesterol, Heart Disease, Hypertension, [place], Renal Failure Additional Past Medical Histor: Carpal Tunnel Past Surgical History: Angioplasty, Coronary Bypass Surgery, Pacemaker, Other Additional Past Surgical Histo: LEFT AKA;r carpal tunne,[facility]ENTS [facility] [employer] Alcohol Use: None Drug Use: None Adult General Chief Complaint Chief Complaint: BACK PAIN OR INJURY HPI HPI Patient is a 73 year old female who brought in by EMS because of back pain. Patient has had history of chronic failure on home overnight peritoneal dialysis with complaining of sudden onset of back pain that woke her up at 5 AM after less than 4 hours of her dialysis as a constant severe pain without radiation. Patient had nausea without vomiting and rated her pain 10 over 10. EMS gave her 50 �g of fentanyl and 4 mg of Zofran with resolving the pain. Patient denies focal neuro deficit, chest pain, shortness of breath, diarrhea and constipation. Patient makes a small amount of urine and denies urinary symptom. Review of Systems Review of Systems Constitutional: Denies fever or chills [] Eyes: Denies change in visual acuity, redness, or eye pain [] HENT: Denies nasal congestion or sore throat [] Respiratory: Denies cough or shortness of breath [] Cardiovascular: No additional information not addressed in HPI [] GI: Denies abdominal pain, vomiting, bloody stools or diarrhea and reports nausea [] : Denies dysuria or hematuria [] Musculoskeletal: Reports back pain, denies joint pain [] Integument: Denies rash or skin lesions [] Neurologic: Denies headache, focal weakness or sensory changes [] Endocrine: Denies polyuria or polydipsia [] All other systems were reviewed and found to be within normal limits, except as documented in this note. Current Medications Current Medications Current Medications Medications (Trade) Dose Ordered Sig/Shilo Start Time Stop Time Status Last Admin Dose Admin Potassium Chloride (Klor-Con) 40 meq 1X ONCE 12/07/18 07:30 12/07/18 07:32 DC 12/07/18 07:44 40 MEQ Allergies Allergies Allergies Coded Allergies Type Severity Reaction Last Updated Verified Penicillins Allergy Intermediate Hives 11/11/17 Yes bacitracin Allergy Intermediate 11/07/17 Yes erythromycin base Allergy Intermediate Hives 11/11/17 Yes neomycin Allergy Intermediate 11/07/17 Yes niacin Allergy Intermediate 11/07/17 Yes polymyxin B Allergy Intermediate 11/07/17 Yes Physical Exam Physical Exam Constitutional: Well developed, well nourished, no acute distress, non-toxic appearance. [] HENT: Normocephalic, atraumatic, oropharynx moist, no oral exudates, nose normal. [] Eyes: PERRLA, EOMI, conjunctiva normal, no discharge. [] Neck: Normal range of motion, no tenderness, supple, no stridor. [] Cardiovascular:Heart rate regular rhythm, no murmur [] Lungs & Thorax: Bilateral breath sounds clear to auscultation [] Abdomen: Bowel sounds normal, soft, no tenderness, no masses, no pulsatile masses. [] Skin: Warm, dry, no erythema, no rash. [] Back: No midline tenderness, no CVA tenderness. [] Extremities: No tenderness, no cyanosis, no clubbing, ROM intact, left below knee amputation Neurologic: Alert and oriented X 3, normal motor function, normal sensory function, no focal deficits noted. [] Psychologic: Affect normal, judgement normal, mood normal. [] Current Patient Data Vital Signs Vital Signs Date Time Temp Pulse Resp B/P (MAP) Pulse Ox O2 Delivery O2 Flow Rate FiO2 12/07/18 06:18 97.9 83 16 131/73 (92) 96 Room Air 97.9 Lab Values Laboratory Tests Test 12/07/18 06:25 White Blood Count 12.2 x10^3/uL (4.0-11.0) H Red Blood Count 3.58 x10^6/uL (3.50-5.40) Hemoglobin 10.8 g/dL (12.0-15.5) L Hematocrit 31.2 % (36.0-47.0) L Mean Corpuscular Volume 87 fL (79-100) Mean Corpuscular Hemoglobin 30 pg (25-35) Mean Corpuscular Hemoglobin Concent 35 g/dL (31-37) Red Cell Distribution Width 17.1 % (11.5-14.5) H Platelet Count 387 x10^3/uL (140-400) Neutrophils (%) (Auto) 73 % (31-73) Lymphocytes (%) (Auto) 13 % (24-48) L Monocytes (%) (Auto) 9 % (0-9) Eosinophils (%) (Auto) 3 % (0-3) Basophils (%) (Auto) 1 % (0-3) Neutrophils # (Auto) 8.9 x10^3/uL (1.8-7.7) H Lymphocytes # (Auto) 1.6 x10^3/uL (1.0-4.8) Monocytes # (Auto) 1.2 x10^3/uL (0.0-1.1) H Eosinophils # (Auto) 0.4 x10^3/uL (0.0-0.7) Basophils # (Auto) 0.1 x10^3/uL (0.0-0.2) Sodium Level 138 mmol/L (136-145) Potassium Level 2.3 mmol/L (3.5-5.1) *L Chloride Level 95 mmol/L (98-107) L Carbon Dioxide Level 26 mmol/L (21-32) Anion Gap 17 (6-14) H Blood Urea Nitrogen 44 mg/dL (7-20) H Creatinine 9.0 mg/dL (0.6-1.0) H Estimated GFR (Cockcroft-Gault) 4.3 BUN/Creatinine Ratio 5 (6-20) L Glucose Level 181 mg/dL (70-99) H Calcium Level 9.3 mg/dL (8.5-10.1) Total Bilirubin 0.5 mg/dL (0.2-1.0) Aspartate Amino Transferase (AST) 5 U/L (15-37) L Alanine Aminotransferase (ALT) 14 U/L (14-59) Alkaline Phosphatase 62 U/L (46-116) Troponin I Quantitative 0.079 ng/mL (0.000-0.055) Total Protein 6.8 g/dL (6.4-8.2) Albumin 2.7 g/dL (3.4-5.0) L Albumin/Globulin Ratio 0.7 (1.0-1.7) L Lipase 106 U/L (73-393) Laboratory Tests 12/07/18 06:25 Laboratory Tests 12/07/18 06:25 EKG EKG EKG interpreted by me. EKG at 0645 showed sinus rhythm at rate of 81, PVCs, abnormal left axis deviation, nonspecific intraventricular block, poor R-wave progress in anterior and inferior leads. Radiology/Procedures Radiology/Procedures [facility] [address] [place] [address] IMAGING REPORT Signed PATIENT: MARISA RIOJAS ACCOUNT: [id number] : 1945 LOCATION: ER AGE: 73 SEX: F EXAM STATUS: REG ER ORD. PHYSICIAN: SONAL CEDENO MD REASON: Left flank and back pain PROCEDURE: CT ABDOMEN PELVIS WO CONTRAST PQRS Compliance Statement: One or more of the following individualized dose reduction techniques were utilized for this examination: 1. Automated exposure control 2. Adjustment of the mA and/or kV according to patient size 3. Use of iterative reconstruction technique CT LUMBAR SPINE RECONSTRUCTION, CT ABDOMEN PELVIS WO CONTRAST Clinical Indication: Left flank and back pain. Sudden onset of back pain. Comparison: CT abdomen and pelvis without contrast May 07, 2018. Technique: Helical CT imaging of the abdomen and pelvis is performed without IV or oral contrast. Using source images, small [id number] multiplanar reformats of the lumbar spine. Findings: Evaluation of solid organs and bowel is limited without oral and IV contrast, decreasing sensitivity for detection of pathology. Lung bases essentially clear. Cardiac pacer wires. Coronary artery disease. Cardiac size normal. There is mild abdominal and pelvic ascites, probably related to patient's peritoneal dialysis. Severe atherosclerotic calcification of the abdominal aorta and its branches. There is no aneurysm. Calcified granulomas in the liver and the spleen. Cholelithiasis. No peripancreatic inflammation. Left adrenal gland hyperplasia. Atrophic right kidney. There is mild left hydronephrosis. No radiopaque ureteral calculus is definitely seen. Question whether there is a tiny minimally radiodense calculus in the proximal left ureter, image 88 Stomach unremarkable. No dilated small bowel. The appendix is normal. Sigmoid colon diverticulosis. Prominent intramural fat of the ascending, transverse, and descending colon may be sequela of prior inflammation. No acute colon wall thickening is appreciated. Urinary bladder is normal. Atrophic uterus. There is left hip screw and intramedullary stephanie. Degenerative arthropathy of the right hip. No acute compression fracture of the lumbar spine. The alignment is maintained. There is degenerative spondylosis. L1/L2: There appears to be a large posterior disc bulge and there is central canal stenosis that is at least moderate. Finding is unchanged. There does not appear to be high-grade neural foraminal narrowing. L2/L3: There is broad-based posterior disc bulge resulting in probably moderate central canal stenosis. Finding is unchanged. There does not appear to be high-grade neural foraminal narrowing. L3/L4: There is posterior disc bulge resulting in mild to moderate central canal stenosis. There does not appear to be high-grade neural foraminal narrowing. IMPRESSION: 1. There is mild left hydronephrosis. Radiopaque ureteral calculus is not identified. Question whether there is a tiny minimally radiodense calculus in the proximal left ureter. Alternatively hydronephrosis could be due to recently passed calculus. Ureteral stricture another consideration. 2. Cholelithiasis. 3. Sigmoid colon diverticulosis. 4. Abdominal and pelvic ascites likely related to peritoneal dialysis. 5. No acute fracture of the lumbar spine. 6. Lumbar degenerative spondylosis as detailed above is unchanged from prior study. Electronically signed by: Tyshawn Strong MD (12/07/2018 8:00 AM) [facility] DICTATED and SIGNED BY: TYSHAWN STRONG MD DATE: 12/07/18 0800 Course & Med Decision Making Course & Med Decision Making Pertinent Labs and Imaging studies reviewed. (See chart for details) Evaluation of patient in ER showed 73-year-old female patient with sudden onset of left lower back pain that resolved with fentanyl and Zofran given by EMS. Patient has history of chronic renal failure on peritoneal dialysis and had potassium of 2.3 and oral potassium was given. CT of lumbar spine nontender did not show acute finding except for cholelithiasis and possible kidney stone. On- call wire bound box machine helper Dr. Luna was consulted at 0806 and agreed with plan of oral potassium.Patient requiring admission for further evaluation and treatment. Discussed with Dr. Andrew Pritchard who is in agreement with admission. Discussed findings and plan with patient and family, who acknowledge understanding and agreement. Dragon Disclaimer Dragon Disclaimer This electronic medical record was generated, in whole or in part, using a voice recognition dictation system. Departure Departure Impression: Primary Impression: Hypokalemia Additional Impressions: Low back pain ESRD (end stage renal disease) Intraventricular block History of left below knee amputation Cholelithiasis Disposition: ADMITTED INPATIENT (at 0 825) Admitting Physician: Andrew Pritchard (accepted admission at 0824) Condition: IMPROVED Referrals: EDER CHAO MD (PCP) Problem Qualifiers Additional Impressions: Low back pain Chronicity: acute Back pain laterality: left Sciatica presence: without sciatica Qualified Codes: M54.5 - Low back pain SONAL CEDENO MD Dec 07, 2018 08:27
[2018-12-07 09:35] VITALS: BP 117/64
--- NOTE | 2018-12-07 09:59 | PDOC2 ---
CONSULT Date of Consult Date of Consult DATE: 12/07/18 TIME: 09:55 Reason for Consult Reason for Consult: ESRD on PD; HypoK Referring Physician Referring Physician: CHRISTINE Identification/Chief Complaint Chief Complaint Nausea, dyspepsia Source Source: Chart review, Patient History of Present Illness Reason for Visit: Debbie is a pleasant 73-year-old female with past medical history as outlined below. She was initiated on hemodialysis approximately 1 year ago and was quickly transitioned over to peritoneal dialysis. She been doing well until recently and has not had any problems by her reports. I'm unable to access her outpatient records at this time, this being a weekend. She presented to the ER with complaints of the gastric upset. She thinks she is not constipated. She tells me she had a bowel movement yesterday. She does have nausea and is unable to keep her medications down by her reports. Tells me her paternal fluid has been clear. Denies nausea vomiting prior to todays episode. Doesn't addition here she was noted to have a potassium of 2.3 and I was called by the ER physician to help manage the same. IV potassium was a consideration however patient is known to have a history of CHF and hence it was felt that she may not be able to handle the fluid without ongoing dialysis. Hence we have o pted oral potassium replacement as ordered. She denies muscle aches myalgias etc. at this time. Denies tremors or cramps per se. Past Medical History Cardiovascular: AFIB, CAD, CHF, HTN, Valve insufficiency, Other Pulmonary: COPD CENTRAL NERVOUS SYSTEM: Other GI: No pertinent hx Heme/Onc: Anemia NOS Musculoskeletal: Osteoarthritis Renal/: Chronic renal failure Endocrine: Diabetes Past Surgical History Past Surgical History: Other Family History Family History: Other (-ve for known Renal ds) Social History ALCOHOL: none Drugs: None Lives: with Family Domestic Violence: Neg Current Problem List Problem List Problems Medical Problems: (1) Cholelithiasis Status: Acute (2) History of left below knee amputation Status: Acute (3) Hypokalemia Status: Acute (4) Intraventricular block Status: Acute (5) Low back pain Status: Acute Current Medications Current Medications Current Medications Potassium Chloride (Klor-Con) 40 meq 1X ONCE PO Last administered on 12/07/18at 07:44; Start 12/07/18 at 07:30; Stop 12/07/18 at 07:32; Status DC Active Scripts Active Prednisone 20 Mg Tablet 1 Tab PO BID Cyclobenzaprine Hcl 10 Mg Tablet 1 Tab PO TID Duoneb 0.5-3(2.5) Mg/3 Ml (Albuterol/Ipratropium) 3 Ml Ampul.neb 3 Ml NEB RTQID 30 Days Diltiazem 24Hr Cd (Diltiazem HCl) 240 Mg Cap.er.24h 240 Mg PO DAILY 30 Days Reported Calcium Acetate 667 Mg Tablet 667 Mg PO TIDWMEALS Labetalol Hcl 100 Mg Tablet 100 Mg PO BID Vitamin B-12 (Cyanocobalamin (Vitamin B-12)) 1,000 Mcg Tablet 2,500 Mcg PO DAILY Calcium (Calcium Carbonate) 600 Mg Tablet 600 Mg PO DAILY Magnesium (Magnesium Oxide) 400 Mg Capsule 1 Cap PO DAILY Hydrocodone-Apap 5-325 (Hydrocodone Bit/Acetaminophen) 1 Each Tablet 1 Tab PO PRN TID PRN Fish Oil 1,000 Mg Softgel ([place]-3 Fatty Acids/Fish Oil) 1 Each Capsule 1 Each PO DAILY Paz-C 1,000 Mg Tablet (Ascorbate Calcium/Bioflavonoid) 1 Each Tablet 1 Each PO DAILY Atorvastatin Calcium 40 Mg Tablet 40 Mg PO HS Vitamin D3 (Cholecalciferol (Vitamin D3)) 1,000 Unit Capsule 2,000 Unit PO DAILY Aspirin 81 Mg Tab.chew 81 Mg PO DAILY Imdur (Isosorbide Mononitrate) 120 Mg Tab.er.24h 120 Mg PO DAILY Clopidogrel (Clopidogrel Bisulfate) 75 Mg Tablet 75 Mg PO DAILY Allergies Allergies: Coded Allergies: Penicillins (Verified Allergy, Intermediate, Hives, 11/11/17) itching bacitracin (Verified Allergy, Intermediate, 11/07/17) erythromycin base (Verified Allergy, Intermediate, Hives, 11/11/17) neomycin (Verified Allergy, Intermediate, 11/07/17) niacin (Verified Allergy, Intermediate, 11/07/17) polymyxin B (Verified Allergy, Intermediate, 11/07/17) Physical Exam Physical Exam General Appearance: Awake Alert Oriented x 3 In no Distress Eyes: VIsion Unchanged Conjunctiva Normal EN: No EN Drainage Mucous Memb. moist Neck: no JVD + JVP Supple no Thyromegaly CVS: S1 S2 Soft Murmur No Gallop No Rub no Edema Resp: no Rales no Rhonchi no Acc. Muscle use GI: BAS +ve NO Bruit Non Tender Non Distended : no CVA tenderness; no Suprapubic Tenderness SKIN: no visible Rashes Breast Exam deferred Mu.Sk: Adequate ROM min Muscle Atrophy, Left BKA Heme: Unable to palpate Obvious LAD no palp Splenomegaly NEURO: Good Strength and Tone Cranial Nerves II - XII grossly intact Psych: ? Depressed no Active hallucination Vital Signs Vital Signs Date Time Temp Pulse Resp B/P (MAP) Pulse Ox O2 Delivery O2 Flow Rate FiO2 12/07/18 09:35 98.0 79 18 117/64 (81) 95 Room Air 98.0 Assessment & Plan ESRD: Current FLuid and E-lyte status does not necessitate emergent need for Dialysis. Will re-evaluate for Dialysis in am after K corrects Sev HypoKalemia - see O for replacement Anemia: restart OP dose of Epogen Transfuse with next HD as needed. HTN: Current BP meds reviewed. See orders for changes. Bone & Mineral: follow Phos levels and alter binder regimen as needed Hydronephrosis: We'll consider urology evaluation if patient becomes symptomatic. Patient claims she makes small amounts of urine occasionally and hence this may be of no consequence unless felt to be contributing to her nausea. UA has been ordered Hyperlipidemia: Suspect this is a sequelae of peritoneal dialysis Discussed Plan of Care and prognosis etc. at length with pt Labs Labs Laboratory Tests Test 12/07/18 06:25 White Blood Count 12.2 x10^3/uL (4.0-11.0) Red Blood Count 3.58 x10^6/uL (3.50-5.40) Hemoglobin 10.8 g/dL (12.0-15.5) Hematocrit 31.2 % (36.0-47.0) Mean Corpuscular Volume 87 fL (79-100) Mean Corpuscular Hemoglobin 30 pg (25-35) Mean Corpuscular Hemoglobin Concent 35 g/dL (31-37) Red Cell Distribution Width 17.1 % (11.5-14.5) Platelet Count 387 x10^3/uL (140-400) Neutrophils (%) (Auto) 73 % (31-73) Lymphocytes (%) (Auto) 13 % (24-48) Monocytes (%) (Auto) 9 % (0-9) Eosinophils (%) (Auto) 3 % (0-3) Basophils (%) (Auto) 1 % (0-3) Neutrophils # (Auto) 8.9 x10^3/uL (1.8-7.7) Lymphocytes # (Auto) 1.6 x10^3/uL (1.0-4.8) Monocytes # (Auto) 1.2 x10^3/uL (0.0-1.1) Eosinophils # (Auto) 0.4 x10^3/uL (0.0-0.7) Basophils # (Auto) 0.1 x10^3/uL (0.0-0.2) Sodium Level 138 mmol/L (136-145) Potassium Level 2.3 mmol/L (3.5-5.1) Chloride Level 95 mmol/L (98-107) Carbon Dioxide Level 26 mmol/L (21-32) Anion Gap 17 (6-14) Blood Urea Nitrogen 44 mg/dL (7-20) Creatinine 9.0 mg/dL (0.6-1.0) Estimated GFR (Cockcroft-Gault) 4.3 BUN/Creatinine Ratio 5 (6-20) Glucose Level 181 mg/dL (70-99) Calcium Level 9.3 mg/dL (8.5-10.1) Total Bilirubin 0.5 mg/dL (0.2-1.0) Aspartate Amino Transf (AST/SGOT) 5 U/L (15-37) Alanine Aminotransferase (ALT/SGPT) 14 U/L (14-59) Alkaline Phosphatase 62 U/L (46-116) Troponin I Quantitative 0.079 ng/mL (0.000-0.055) Total Protein 6.8 g/dL (6.4-8.2) Albumin 2.7 g/dL (3.4-5.0) Albumin/Globulin Ratio 0.7 (1.0-1.7) Lipase 106 U/L (73-393) Laboratory Tests Test 12/07/18 06:25 White Blood Count 12.2 x10^3/uL (4.0-11.0) Red Blood Count 3.58 x10^6/uL (3.50-5.40) Hemoglobin 10.8 g/dL (12.0-15.5) Hematocrit 31.2 % (36.0-47.0) Mean Corpuscular Volume 87 fL (79-100) Mean Corpuscular Hemoglobin 30 pg (25-35) Mean Corpuscular Hemoglobin Concent 35 g/dL (31-37) Red Cell Distribution Width 17.1 % (11.5-14.5) Platelet Count 387 x10^3/uL (140-400) Neutrophils (%) (Auto) 73 % (31-73) Lymphocytes (%) (Auto) 13 % (24-48) Monocytes (%) (Auto) 9 % (0-9) Eosinophils (%) (Auto) 3 % (0-3) Basophils (%) (Auto) 1 % (0-3) Neutrophils # (Auto) 8.9 x10^3/uL (1.8-7.7) Lymphocytes # (Auto) 1.6 x10^3/uL (1.0-4.8) Monocytes # (Auto) 1.2 x10^3/uL (0.0-1.1) Eosinophils # (Auto) 0.4 x10^3/uL (0.0-0.7) Basophils # (Auto) 0.1 x10^3/uL (0.0-0.2) Sodium Level 138 mmol/L (136-145) Potassium Level 2.3 mmol/L (3.5-5.1) Chloride Level 95 mmol/L (98-107) Carbon Dioxide Level 26 mmol/L (21-32) Anion Gap 17 (6-14) Blood Urea Nitrogen 44 mg/dL (7-20) Creatinine 9.0 mg/dL (0.6-1.0) Estimated GFR (Cockcroft-Gault) 4.3 BUN/Creatinine Ratio 5 (6-20) Glucose Level 181 mg/dL (70-99) Calcium Level 9.3 mg/dL (8.5-10.1) Total Bilirubin 0.5 mg/dL (0.2-1.0) Aspartate Amino Transf (AST/SGOT) 5 U/L (15-37) Alanine Aminotransferase (ALT/SGPT) 14 U/L (14-59) Alkaline Phosphatase 62 U/L (46-116) Troponin I Quantitative 0.079 ng/mL (0.000-0.055) Total Protein 6.8 g/dL (6.4-8.2) Albumin 2.7 g/dL (3.4-5.0) Albumin/Globulin Ratio 0.7 (1.0-1.7) Lipase 106 U/L (73-393) Review All relevant outside records, renal labs, imaging studies, telemetry/EKG's were reviewed. Images Images IMPRESSION: 1. There is mild left hydronephrosis. Radiopaque ureteral calculus is not identified. Question whether there is a tiny minimally radiodense calculus in the proximal left ureter. Alternatively hydronephrosis could be due to recently passed calculus. Ureteral stricture another consideration. 2. Cholelithiasis. 3. Sigmoid colon diverticulosis. 4. Abdominal and pelvic ascites likely related to peritoneal dialysis. 5. No acute fracture of the lumbar spine. 6. Lumbar degenerative spondylosis as detailed above is unchanged from prior study. SONIA FRANKLIN MD Dec 07, 2018 09:59
[2018-12-07] MEDS ORDERED: MAGNESIUM SULFATE 2GM 50 ML IV PRN (10:00)
[2018-12-07] MEDS: POTASSIUM CHLORIDE 20 MEQ TABLET.ER. PO PRN ×3 (10:00→17:11)
[2018-12-07 11:23] VITALS: BP 104/54
[2018-12-07 12:09] LABS: BILIRUBIN,URINE NEGATIVE (NEG); CLARITY,URINE CLEAR; COLOR,URINE YELLOW; NITRITE,URINE NEGATIVE (NEG); PH,URINE 5.5; PROTEIN,URINE >=300 mg/dL (NEG-TRACE); UROBILINOGEN,URINE 0.2 mg/dL (0.2 mg/dL)
[2018-12-07 12:29] LABS: SQUAMOUS EPITHELIAL CELL,UR MOD /LPF
[2018-12-07] MEDS ORDERED: HYDROcodone/APAP 5/325MG 1 TAB TABLET PO PRN (12:30)
[2018-12-07 12:31] LABS: GRANULAR CASTS,URINE FEW /HPF
[2018-12-07 12:32] LABS: BACTERIA,URINE MODERATE /HPF (0-FEW)
--- NOTE | 2018-12-07 13:27 | HP ---
ADMIT DATE: CHIEF COMPLAINT AND HISTORY OF PRESENT ILLNESS: This 73-year-old white female, patient of Dr. Christina Pritchard, who presented to the Emergency Room because of severe back pain. She described it as primarily left-sided below the flank, but not completely lower back. It started in the middle of the night when she was doing her regular home overnight peritoneal dialysis. She describes it as constant severe pain without radiation. She had nausea without vomiting and rated the pain 10/10. EMS gave her 50 mcg of fentanyl and 4 mg of Zofran, resolving the pain and by the time of my examination around noon, has had no further pain. She does state that she does feel better at this point in time than she did on admission. PAST MEDICAL HISTORY: Remarkable for coronary artery disease, COPD, heart failure, diabetes, hyperlipidemia, hypertension, prior [place], end-stage renal disease, on peritoneal dialysis. PAST SURGICAL HISTORY: Remarkable for coronary artery bypass surgery, pacemaker placement, carpal tunnel, left above the knee amputation in 1981, right carpal tunnel, coronary stents in the past. SOCIAL HISTORY: Noncontributory. FAMILY HISTORY: Noncontributory. MEDICATIONS: Brought with the patient, listed on the computer and have been addressed. ALLERGIES: She is allergic to PENICILLIN, BACITRACIN, ERYTHROMYCIN, POLYMYXIN, NEOMYCIN, and NIACIN. PHYSICAL EXAMINATION: GENERAL: She is a well-developed, well-nourished white female, in no acute distress. VITAL SIGNS: Stable. She is afebrile. HEAD, EYES, EARS, NOSE AND THROAT: Unremarkable. NECK: Supple, without lymphadenopathy or thyromegaly. CHEST: Clear to auscultation and percussion. HEART: Regular rate and rhythm without S3, S4 or murmur. ABDOMEN: Soft, nontender, without hepatosplenomegaly or masses. EXTREMITIES: Without cyanosis, clubbing, or edema. NEUROLOGIC: She is intact. I can elicit no back pain on examination to palpation, etc. LABORATORY DATA: Initial workup includes a white count of 12,200, hemoglobin of 10.8, elevated RDW. Initial potassium was 2.3, BUN was 44 and creatinine 9, blood sugar 181 on admission. Albumin low at 2.7. The patient has had a lumbar spine CT as well as abdomen and pelvis CT showing no acute changes, but stable degenerative changes in her lumbar spine area. She has abdominal and pelvic ascites related to the peritoneal dialysis, diverticulosis, cholelithiasis, and mild left hydronephrosis. Renal has been consulted and is following along replacing potassium at this point in time. IMPRESSION: 1. Back pain of uncertain etiology, currently resolved. 2. Severe hypokalemia. 3. End-stage renal disease, on peritoneal dialysis. 4. Left [id number]-[id number] amputation. 5. Diabetes. PLAN: The patient has been admitted. Home meds will be resumed. Renal consult is in. Potassium will be replaced and the patient will be monitored, managed and treated appropriately. RICHIE BAL MD DR: JAKOB/concetta JOB#: [id number] / [id number] CHRISTINA Dunn MD
[2018-12-07] MEDS: LABETALOL HCL 100 MG TABLET. PO SCH ×2 (14:00→20:47)
[2018-12-07] MEDS: ASPIRIN CHEWABLE 81 MG TABLET. PO SCH (14:18)
[2018-12-07] MEDS: CHOLECALCIFEROL (VITAMIN D3) 1,000 UNIT TABLET PO SCH (14:19)
[2018-12-07] MEDS: ISOSORBIDE MONONITRATE ER 30 MG TAB.ER.24H PO SCH (14:19)
[2018-12-07] MEDS: CALCIUM ACETATE 667 MG CAPSULE PO SCH ×2 (14:20→17:10)
[2018-12-07] MEDS: OMEGA-3 FATTY ACIDS/FISH OIL 1,000 MG CAPSULE. PO SCH (14:21)
[2018-12-07] MEDS: CYANOCOBALAMIN (VITAMIN B-12) 1,000 MCG TABLET. PO SCH (14:21)
[2018-12-07] MEDS: CALCIUM CARBONATE 500 MG TABLET PO SCH (14:21)
[2018-12-07] MEDS: MAGNESIUM OXIDE 400 MG TABLET PO SCH (14:22)
[2018-12-07] MEDS: CLOPIDOGREL BISULFATE 75 MG TABLET PO SCH (14:22)
[2018-12-07 15:04] VITALS: BP 117/70
[2018-12-07] MEDS ORDERED: IPRATRPIUM/ALBUTEROL 0.5/2.5MG 3 ML NEBU. NEB SCH (16:00)
[2018-12-07] MEDS ORDERED: BISACODYL 10 MG SUPP.RECT. PR ONE (16:15)
[2018-12-07] MEDS ORDERED: ALBUTEROL SULFATE 2.5 MG/3 ML NEBU. NEB PRN (16:45)
[2018-12-07] MEDS: ASCORBIC ACID 500 MG TABLET PO SCH (17:09)
--- NOTE | 2018-12-07 17:40 | RAD ---
KUB Clinical Indication: Nausea. Comparison: CT abdomen and pelvis without contrast, earlier same day. Findings: Peritoneal dialysis catheter is redemonstrated. Air-filled nondilated small bowel in the left lower abdomen. Liver and spleen size are prominent. Bones appear stable. Cardiac pacer wires are seen. Atherosclerotic splenic artery. Left hip screw partially seen. IMPRESSION: Nonobstructive bowel gas pattern. Electronically signed by: Tyshawn Strong MD (12/07/2018 5:37 PM) [facility]
[2018-12-07 19:05] VITALS: BP 162/53
[2018-12-07] MEDS ORDERED: DARBEPOETIN ALFA 60 MCG/0.3 ML DISP.SYRIN. SQ SCH (21:00)
[2018-12-07] MEDS ORDERED: ATORVASTATIN CALCIUM 40 MG TABLET. PO SCH (21:00)
[2018-12-07] MEDS ORDERED: MAG HYDROX/ALUMINUM HYD/SIMETH 30 ML ORAL.SUSP PO PRN (21:15)
[2018-12-07 23:42] VITALS: BP 123/59
[2018-12-08 03:14] VITALS: BP 93/45
[2018-12-08 04:50] LABS: ALBUMIN 2.5 g/dL (3.4-5.0); CALCIUM 9.6 mg/dL (8.5-10.1); CREATININE 9.6 mg/dL (0.6-1.0); MAGNESIUM 1.8 mg/dL (1.8-2.4); PHOSPHORUS 5.8 mg/dL (2.6-4.7); POTASSIUM 4.8 mmol/L (3.5-5.1)
--- NOTE | 2018-12-08 06:26 | EKG ---
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
[2018-12-08 07:00] VITALS: BP 154/64
[2018-12-08] MEDS: ASCORBIC ACID 500 MG TABLET PO SCH (08:58)
[2018-12-08] MEDS: ISOSORBIDE MONONITRATE ER 30 MG TAB.ER.24H PO SCH (08:58)
[2018-12-08] MEDS: MAGNESIUM OXIDE 400 MG TABLET PO SCH (08:58)
[2018-12-08] MEDS: OMEGA-3 FATTY ACIDS/FISH OIL 1,000 MG CAPSULE. PO SCH (08:58)
[2018-12-08] MEDS: CALCIUM ACETATE 667 MG CAPSULE PO SCH ×2 (08:58→12:22)
[2018-12-08] MEDS: ASPIRIN CHEWABLE 81 MG TABLET. PO SCH (08:58)
[2018-12-08] MEDS: CLOPIDOGREL BISULFATE 75 MG TABLET PO SCH (08:58)
[2018-12-08] MEDS: CYANOCOBALAMIN (VITAMIN B-12) 1,000 MCG TABLET. PO SCH (08:59)
[2018-12-08] MEDS: LABETALOL HCL 100 MG TABLET. PO SCH (08:59)
[2018-12-08] MEDS ORDERED: POLYETHYLENE GLYCOL 3350 17 GM PACKET. PO SCH (09:00)
--- NOTE | 2018-12-08 09:00 | PDOC ---
Provider Note Provider Note [id number] CHRISTINA ROSENBAUM MD Dec 08, 2018 09:00
[2018-12-08] MEDS: CALCIUM CARBONATE 500 MG TABLET PO SCH (09:02)
[2018-12-08] MEDS: CHOLECALCIFEROL (VITAMIN D3) 1,000 UNIT TABLET PO SCH (09:02)
[2018-12-08 11:00] VITALS: BP 114/61
[2018-12-08 15:00] VITALS: BP 107/60
--- NOTE | 2018-12-08 15:19 | NUR ---
Dr. Herbert's office was called, Benjamin has paged Dr. Herbert regarding pt's discharge orders. No return call was noted. Patient is adamant on leaving without seeing Dr. Herbert. Pt also refused the PD fluid draw for labs. Discharge instructions given regarding medications. Education over low potassium reviewed. Patient verbalizes understanding.
--- NOTE | 2018-12-08 17:12 | DS ---
DATE OF DISCHARGE: 12/08/2018 HOSPITAL SUMMARY: A 73-year-old white female who came in with abrupt onset of severe left flank pain without any other specific symptoms. CT showed mild hydronephrosis with no obvious stone seen and CT scan of the spine showed various levels of degenerative disk changes without acute change. Potassium was low at 2.3, came up to 4.5 with replacement and creatinine high at 9 consistent with end-stage renal disease. Her pain resolved after a single injection of fentanyl and has not recurred. She is no longer tender and has no other urinary or other symptoms. It is felt likely that she had transient ureteral colic and minimal hydronephrosis seen on CT was just residual from the stone, but she is feeling better and comfortable to be followed as an outpatient. Potassium replacement was given orally without problem. FINAL DIAGNOSES: 1. Left ureteral colic. 2. Hypokalemia. OPERATIONS, PROCEDURES, COMPLICATIONS: None. CONSULTATIONS: Dr. Jalen Luna. DISPOSITION: All home meds remain the same. Good fluid intake. Regular dialysis schedule and office followup as scheduled. CHRISTINA ROSENBAUM MD DR: AVNI/concetta JOB#: [id number] / [id number]
== END 2018-12-08 14:59 | disposition home or self-care (01) | DRG 640 ==
LOC: ER 06:08 → 6 SOUTH 08:50
PROVIDERS: ADMIT Family Medicine; ATTEND Family Medicine
DX: E87.6 Hypokalemia (principal); N18.6 End stage renal disease; N13.2 Hydronephrosis with renal and ureteral calculous obstruction; I13.2 Hypertensive heart and chronic kidney disease with heart failure and with stage 5 chronic kidney disease, or end stage renal disease; I45.4 Nonspecific intraventricular block; K80.20 Calculus of gallbladder without cholecystitis without obstruction; J44.9 Chronic obstructive pulmonary disease, unspecified; E78.5 Hyperlipidemia, unspecified; I48.91 Unspecified atrial fibrillation; M19.90 Unspecified osteoarthritis, unspecified site; D64.9 Anemia, unspecified; I50.9 Heart failure, unspecified; E11.22 Type 2 diabetes mellitus with diabetic chronic kidney disease; I25.10 Atherosclerotic heart disease of native coronary artery without angina pectoris; E78.00 Pure hypercholesterolemia, unspecified; I25.2 Old myocardial infarction; Z95.1 Presence of aortocoronary bypass graft; Z95.5 Presence of coronary angioplasty implant and graft; Z99.2 Dependence on renal dialysis; Z89.612 Acquired absence of left leg above knee; Z88.1 Allergy status to other antibiotic agents; Z88.0 Allergy status to penicillin; Z88.8 Allergy status to other drugs, medicaments and biological substances; Z89.512 Acquired absence of left leg below knee
CPT/HCPCS: 36415; 74018; 74176; 80053; 80069; 81001; 82962; 83690; 83735; 84132; 84484; 85018; 85025; 87086; 93005; 94760; J0882; J7613; 99285-25; G0378

== ENCOUNTER 2018-12-09 21:53 | Emergency (ER) | payer MEDICARE, OTHER ==
[~2018-12-09] VITALS: Ht 167.6 cm; Wt 69.9 kg
[2018-12-09] MEDS ORDERED: ONDANSETRON PF 4 MG/2 ML VIAL. IV ONE (22:15)
[2018-12-09] MEDS ORDERED: fentaNYL PF VIAL 100 MCG/2 ML VIAL IV ONE (22:15)
[2018-12-09 22:38] LABS: BASO # 0.1 x10^3/uL (0.0-0.2); BASO % 1 % (0-3); EOS # 0.2 x10^3/uL (0.0-0.7); EOS % 3 % (0-3); HEMATOCRIT 30.7 % (36.0-47.0); HEMOGLOBIN 10.8 g/dL (12.0-15.5); LYMPH # 0.8 x10^3/uL (1.0-4.8); LYMPH % 9 % (24-48); MEAN CORPUSCULAR HEMOGLOBIN 31 pg (25-35); MEAN CORPUSCULAR HGB CONC 35 g/dL (31-37); MEAN CORPUSCULAR VOLUME 88 fL (79-100); MONO # 0.4 x10^3/uL (0.0-1.1); MONO % 5 % (0-9); NEUT # 7.6 x10^3/uL (1.8-7.7); NEUT % 83 % (31-73); PLATELET COUNT 403 x10^3/uL (140-400); RED CELL DISTRIBUTION WIDTH 17.4 % (11.5-14.5); WHITE BLOOD COUNT 9.1 x10^3/uL (4.0-11.0)
[2018-12-09 22:40] VITALS: BP 148/69
--- NOTE | 2018-12-09 22:48 | PHYS DOC ---
Past Medical History Past Medical History: CAD, CHF, COPD, Diabetes-Type II, High Cholesterol, Heart Disease, Hypertension, [place], Renal Failure Additional Past Medical Histor: Carpal Tunnel Past Surgical History: Angioplasty, Coronary Bypass Surgery, Pacemaker, Other Additional Past Surgical Histo: LEFT AKA;r carpal tunne,STENTS [facility] [employer] Alcohol Use: None Drug Use: None Adult General Chief Complaint Chief Complaint: Abdominal pain and nausea [facility] HPI Patient is a 73 year old female with history of chronic renal failure on home presented on dialysis who presents with complaining of abdominal pain and nausea.patient had recent hospitalization with the same pain and discharged home yesterday. Patient states she had her overnight dialysis that was finished at 10 AM today without problem. Patient complaining of generalized abdominal aching pain that started around 1400 as a constant pain with radiation to left flank associated with nausea without vomiting. Patient rated her pain 10 over 10 and states she did not get her home hydrocodone given her pain was 10 over 10. Patient was anxious and crying of pain when the blood pressure cuff pumping around her arm. Review of Systems Review of Systems Constitutional: Denies fever or chills [] Eyes: Denies change in visual acuity, redness, or eye pain [] HENT: Denies nasal congestion or sore throat [] Respiratory: Denies cough or shortness of breath [] Cardiovascular: No additional information not addressed in HPI [] GI: reports abdominal pain, nausea, denies vomiting, bloody stools or diarrhea [] : Denies dysuria or hematuria [] Musculoskeletal: Denies back pain or joint pain [] Integument: Denies rash or skin lesions [] Neurologic: Denies headache, focal weakness or sensory changes [] Endocrine: Denies polyuria or polydipsia [] All other systems were reviewed and found to be within normal limits, except as documented in this note. Current Medications Current Medications Current Medications Medications (Trade) Dose Ordered Sig/Shilo Start Time Stop Time Status Last Admin Dose Admin Fentanyl Citrate (Fentanyl 2ml Vial) 50 mcg 1X ONCE 12/09/18 22:15 12/09/18 22:19 DC 12/09/18 22:31 50 MCG Ondansetron HCl (Zofran) 4 mg 1X ONCE 12/09/18 22:15 12/09/18 22:19 DC 12/09/18 22:31 4 MG Allergies Allergies Allergies Coded Allergies Type Severity Reaction Last Updated Verified Penicillins Allergy Intermediate Hives 11/11/17 Yes bacitracin Allergy Intermediate 11/07/17 Yes erythromycin base Allergy Intermediate Hives 11/11/17 Yes neomycin Allergy Intermediate 11/07/17 Yes niacin Allergy Intermediate 11/07/17 Yes polymyxin B Allergy Intermediate 11/07/17 Yes Physical Exam Physical Exam PHYSICAL EXAM: CONSTITUTIONAL: Well nourished, mild distress, Very anxious HEAD: normocephalic, atraumatic EENT: PERRL, EOMI. Conjunctivae normal color, sclerae non-icteric; moist mucous membranes. NECK: Supple, non-tender; no meningismus. LUNGS: Lungs CTA, breathing even and unlabored. Normal air movement. HEART: Regular rate and rhythm, no murmur CHEST: No deformity; non-tender ABDOMEN: The abdomen is soft, and non-tender, no masses or bruits, voluntary guarding without tenderness. EXTREM: left below knee amputation. There is no pedal edema. SKIN: No rash; no diaphoresis NEURO: Alert; normal speech and cognition; CN's grossly intact; strength grossly intact without focal deficit. BACK: No CVA TTP. Current Patient Data Vital Signs Vital Signs Date Time Temp Pulse Resp B/P (MAP) Pulse Ox O2 Delivery O2 Flow Rate FiO2 12/09/18 22:40 116 20 148/69 (95) 95 Room Air 12/09/18 22:08 98.3 98.3 Lab Values Laboratory Tests Test 12/09/18 22:30 12/09/18 23:20 White Blood Count 9.1 x10^3/uL (4.0-11.0) Red Blood Count 3.50 x10^6/uL (3.50-5.40) Hemoglobin 10.8 g/dL (12.0-15.5) L Hematocrit 30.7 % (36.0-47.0) L Mean Corpuscular Volume 88 fL (79-100) Mean Corpuscular Hemoglobin 31 pg (25-35) Mean Corpuscular Hemoglobin Concent 35 g/dL (31-37) Red Cell Distribution Width 17.4 % (11.5-14.5) H Platelet Count 403 x10^3/uL (140-400) H Neutrophils (%) (Auto) 83 % (31-73) H Lymphocytes (%) (Auto) 9 % (24-48) L Monocytes (%) (Auto) 5 % (0-9) Eosinophils (%) (Auto) 3 % (0-3) Basophils (%) (Auto) 1 % (0-3) Neutrophils # (Auto) 7.6 x10^3/uL (1.8-7.7) Lymphocytes # (Auto) 0.8 x10^3/uL (1.0-4.8) L Monocytes # (Auto) 0.4 x10^3/uL (0.0-1.1) Eosinophils # (Auto) 0.2 x10^3/uL (0.0-0.7) Basophils # (Auto) 0.1 x10^3/uL (0.0-0.2) Sodium Level 132 mmol/L (136-145) L Potassium Level 4.3 mmol/L (3.5-5.1) Chloride Level 96 mmol/L (98-107) L Carbon Dioxide Level 21 mmol/L (21-32) Anion Gap 15 (6-14) H Blood Urea Nitrogen 55 mg/dL (7-20) H Creatinine 9.1 mg/dL (0.6-1.0) H Estimated GFR (Cockcroft-Gault) 4.3 BUN/Creatinine Ratio 6 (6-20) Glucose Level 141 mg/dL (70-99) H Calcium Level 9.5 mg/dL (8.5-10.1) Total Bilirubin 0.5 mg/dL (0.2-1.0) Aspartate Amino Transferase (AST) 13 U/L (15-37) L Alanine Aminotransferase (ALT) 18 U/L (14-59) Alkaline Phosphatase 71 U/L (46-116) Troponin I Quantitative 0.053 ng/mL (0.000-0.055) Total Protein 7.0 g/dL (6.4-8.2) Albumin 2.7 g/dL (3.4-5.0) L Albumin/Globulin Ratio 0.6 (1.0-1.7) L Lipase 84 U/L (73-393) Laboratory Tests 12/09/18 22:30 Laboratory Tests 12/09/18 23:20 Radiology/Procedures Radiology/Procedures [][facility] [address] [place] [address] IMAGING REPORT Signed PATIENT: MARISA RIOJAS ACCOUNT: [id number] : 1945 LOCATION: ER AGE: 73 SEX: F EXAM STATUS: REG ER ORD. PHYSICIAN: SONAL CEDENO MD REASON: abdominal pain and nausea , peritoneal dialysis PROCEDURE: CT ABDOMEN PELVIS WO CONTRAST CT abdomen pelvis without contrast dated 12/09/2018. Comparison made to 12/07/2018. CLINICAL INDICATION: Abdominal pain and nausea. TECHNIQUE: Contiguous axial imaging of the abdomen and pelvis performed without the administration of IV or oral contrast. One or more of the following individualized dose reduction techniques were utilized for this examination: 1. Automated exposure control 2. Adjustment of the mA and/or kV according to patient size 3. Use of iterative reconstruction technique FINDINGS: Limited images of lung bases show small bilateral pleural effusions, new from prior exam. Patchy increased density at both lung bases with prominent interstitial markings, increased from prior study. Heart size mildly enlarged. No pericardial effusion. Solid abdominal viscera not well evaluated in the absence of contrast material. No apparent attenuation abnormality of the liver. Spleen is normal in size. Pancreas and adrenal glands are unremarkable. There are calcific stones within the gallbladder lumen. Trace amount of pericholecystic fluid. Kidneys are atrophic. There are bilateral vascular calcifications. No hydronephrosis. Previously described left hydronephrosis has resolved. Unopacified GI tract normal in caliber and contour. No focal bowel wall thickening. No inflammatory stranding in the mesentery. Peritoneal dialysis catheter in place. The appendix is borderline enlarged measuring 7 mm diameter. No inflammatory changes in the periappendiceal fat. Findings are similar to prior study. No adenopathy. Few scattered diverticula within the distal colon. Images of pelvis show nondistended urinary bladder. Uterus unremarkable. No significant free fluid. No pelvic lymphadenopathy. IMPRESSION: 1. No acute abnormality of abdomen or pelvis. Interval resolution of left-sided hydronephrosis. 2. Small bilateral pleural effusions, new from prior study. 3. The appendix is borderline dilated with no apparent inflammatory changes in the periappendiceal fat. This is unchanged from prior study and likely a normal variant. Correlate clinically. 4. Cholelithiasis. 5. Diverticulosis. Electronically signed by: Cornelius Dias MD (12/09/2018 11:18 PM) [facility] DICTATED and SIGNED BY: CORNELIUS DIAS MD DATE: 12/09/18 5991 Course & Med Decision Making Course & Med Decision Making Pertinent Labs and Imaging studies reviewed. (See chart for details) Evaluation of patient in ER showed 73-year-old female patient with history of chronic renal failure on peritoneal dialysis presented with complaining of abdominal pain and nausea. Patient had the same presentation several days ago with hospitalization and unremarkable finding. Patient didn't take any pain medication at home. Patient treated with Zofran and fentanyl and felt better. Labs was unremarkable except for chronic elevation of BUN/creatinine. CT of abdomen and pelvis did not show acute finding and showed cholelithiasis and diverticulosis. Patient was advised to take home hydrocodone and prescription from Zofran was given. Dragon Disclaimer Dragon Disclaimer This electronic medical record was generated, in whole or in part, using a voice recognition dictation system. Departure Departure Impression: Primary Impression: Abdominal pain Additional Impressions: Nausea ESRD (end stage renal disease) Cholelithiasis Diverticulosis Disposition: HOME, SELF-CARE (at 00 27) Condition: IMPROVED Referrals: EDER CHAO MD (PCP) Patient Instructions: Abdominal Pain, Nausea, Adult Additional Instructions: Continue home medication Follow-up with your primary care physician in 3-5 days Return to ER if not getting better Scripts Ondansetron Hcl (ZOFRAN) 4 Mg Tablet 1 TAB PO PRN Q6-8HRS for nausea, #12 TAB Prov: SONAL CEDENO MD 12/10/18 Problem Qualifiers Primary Impression: Abdominal pain Abdominal location: unspecified location Qualified Codes: R10.9 - Unspecified abdominal pain Additional Impressions: Cholelithiasis Cholelithiasis location: gallbladder Cholecystitis presence: without cholecystitis Biliary obstruction: without biliary obstruction Qualified Codes: K80.20 - Calculus of gallbladder without cholecystitis without obstruction SONAL CEDENO MD Dec 09, 2018 22:48
--- NOTE | 2018-12-09 23:21 | RAD ---
CT abdomen pelvis without contrast dated 12/09/2018. Comparison made to 12/07/2018. CLINICAL INDICATION: Abdominal pain and nausea. TECHNIQUE: Contiguous axial imaging of the abdomen and pelvis performed without the administration of IV or oral contrast. One or more of the following individualized dose reduction techniques were utilized for this examination: 1. Automated exposure control 2. Adjustment of the mA and/or kV according to patient size 3. Use of iterative reconstruction technique FINDINGS: Limited images of lung bases show small bilateral pleural effusions, new from prior exam. Patchy increased density at both lung bases with prominent interstitial markings, increased from prior study. Heart size mildly enlarged. No pericardial effusion. Solid abdominal viscera not well evaluated in the absence of contrast material. No apparent attenuation abnormality of the liver. Spleen is normal in size. Pancreas and adrenal glands are unremarkable. There are calcific stones within the gallbladder lumen. Trace amount of pericholecystic fluid. Kidneys are atrophic. There are bilateral vascular calcifications. No hydronephrosis. Previously described left hydronephrosis has resolved. Unopacified GI tract normal in caliber and contour. No focal bowel wall thickening. No inflammatory stranding in the mesentery. Peritoneal dialysis catheter in place. The appendix is borderline enlarged measuring 7 mm diameter. No inflammatory changes in the periappendiceal fat. Findings are similar to prior study. No adenopathy. Few scattered diverticula within the distal colon. Images of pelvis show nondistended urinary bladder. Uterus unremarkable. No significant free fluid. No pelvic lymphadenopathy. IMPRESSION: 1. No acute abnormality of abdomen or pelvis. Interval resolution of left-sided hydronephrosis. 2. Small bilateral pleural effusions, new from prior study. 3. The appendix is borderline dilated with no apparent inflammatory changes in the periappendiceal fat. This is unchanged from prior study and likely a normal variant. Correlate clinically. 4. Cholelithiasis. 5. Diverticulosis. Electronically signed by: Cornelius Dias MD (12/09/2018 11:18 PM) [facility]
[2018-12-09 23:38] LABS: CALCIUM 9.5 mg/dL (8.5-10.1); CREATININE 9.1 mg/dL (0.6-1.0); GFR 4.3; POTASSIUM 4.3 mmol/L (3.5-5.1)
[2018-12-09 23:44] LABS: ALBUMIN 2.7 g/dL (3.4-5.0); ALBUMIN/GLOBULIN RATIO 0.6 (1.0-1.7); TOTAL BILIRUBIN 0.5 mg/dL (0.2-1.0)
[2018-12-10] MEDS ORDERED: ONDA4TAB7 PO (00:29)
--- NOTE | 2018-12-10 05:48 | EKG ---
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
== END 2018-12-10 00:55 | disposition home or self-care (01) ==
LOC: ER 21:53
DX: K57.90 Diverticulosis of intestine, part unspecified, without perforation or abscess without bleeding (principal); K80.20 Calculus of gallbladder without cholecystitis without obstruction; I13.2 Hypertensive heart and chronic kidney disease with heart failure and with stage 5 chronic kidney disease, or end stage renal disease; E11.22 Type 2 diabetes mellitus with diabetic chronic kidney disease; N18.6 End stage renal disease; I50.9 Heart failure, unspecified; Z99.2 Dependence on renal dialysis; E78.00 Pure hypercholesterolemia, unspecified; I25.2 Old myocardial infarction; J44.9 Chronic obstructive pulmonary disease, unspecified; Z95.1 Presence of aortocoronary bypass graft; Z95.5 Presence of coronary angioplasty implant and graft; Z95.0 Presence of cardiac pacemaker; Z88.0 Allergy status to penicillin; Z88.1 Allergy status to other antibiotic agents
CPT/HCPCS: 36415; 74176; 80053; 83690; 84484; 85025; 93005; 96374; 96375; 99285; J2405; J3010

== ENCOUNTER 2018-12-28 00:42 | Emergency (ER) | payer MEDICARE, OTHER ==
[~2018-12-28] VITALS: Ht 165.1 cm; Wt 69.9 kg
[~2018-12-28 00:42] MED LIST changes: +ONDA4TAB7 PO
[2018-12-28 02:02] LABS: FECAL OB PT NEGATIVE (NEG)
[2018-12-28 02:09] LABS: BASO # 0.1 x10^3/uL (0.0-0.2); BASO % 1 % (0-3); EOS # 0.3 x10^3/uL (0.0-0.7); EOS % 2 % (0-3); HEMATOCRIT 30.8 % (36.0-47.0); HEMOGLOBIN 10.8 g/dL (12.0-15.5); LYMPH # 1.4 x10^3/uL (1.0-4.8); LYMPH % 8 % (24-48); MEAN CORPUSCULAR HEMOGLOBIN 30 pg (25-35); MEAN CORPUSCULAR HGB CONC 35 g/dL (31-37); MEAN CORPUSCULAR VOLUME 86 fL (79-100); MONO # 1.4 x10^3/uL (0.0-1.1); MONO % 8 % (0-9); NEUT # 14.3 x10^3/uL (1.8-7.7); NEUT % 82 % (31-73); PLATELET COUNT 440 x10^3/uL (140-400); RED BLOOD COUNT 3.57 x10^6/uL (3.50-5.40); RED CELL DISTRIBUTION WIDTH 16.6 % (11.5-14.5); WHITE BLOOD COUNT 17.5 x10^3/uL (4.0-11.0)
[2018-12-28] MEDS ORDERED: FAMOTIDINE 20 MG/2 ML VIAL IVP ONE (02:15)
[2018-12-28] MEDS ORDERED: IV NORMAL SALINE 1000ML BAG 1,000 ML IV ONE (02:15)
[2018-12-28] MEDS ORDERED: ONDANSETRON PF 4 MG/2 ML VIAL. IV ONE (02:15)
[2018-12-28 02:19] LABS: PROTHROMBIN TIME PATIENT 13.1 SEC (11.7-14.0)
[2018-12-28 02:21] LABS: CALCIUM 9.1 mg/dL (8.5-10.1); CREATININE 9.8 mg/dL (0.6-1.0); GFR 3.9; POTASSIUM 3.1 mmol/L (3.5-5.1)
[2018-12-28 02:27] LABS: ALBUMIN 2.5 g/dL (3.4-5.0); ALBUMIN/GLOBULIN RATIO 0.6 (1.0-1.7); TOTAL BILIRUBIN 0.6 mg/dL (0.2-1.0); TOTAL PROTEIN 6.8 g/dL (6.4-8.2)
[2018-12-28 02:34] LABS: CREATINE KINASE 63 U/L (26-192)
[2018-12-28 02:35] LABS: % BANDS 3 % (0-9); % EOS 4 % (0-5); % LYMPHS 6 % (24-48); % MONOS 7 % (0-10); % SEGS 80 % (35-66); PLT ESTIMATE ADEQUATE (ADEQUATE); TOXIC GRANULATION SLIGHT
[2018-12-28 02:36] LABS: ANISOCYTOSIS SLIGHT
--- NOTE | 2018-12-28 03:19 | RAD ---
CT abdomen and pelvis without contrast. HISTORY: Pain CT scan of the abdomen and pelvis was done without contrast. Comparison is made with a study from December 07. Lung bases are clear. There is no pleural effusion. There is a granuloma in the left lower lobe. There is degenerative change in the lumbar spine. There is mild spinal canal narrowing an lateral recess narrowing on the right at L4-5. There is mild scoliosis. A liver lesion is not identified. There are granulomatous calcifications in the spleen. Adrenal glands and pancreas are normal. There is atrophy of the right kidney. There is extensive vascular calcification. There are gallstones in the gallbladder. There is no bowel obstruction. There is a dialysis catheter in the pelvis. There is mild fluid in the pelvis. Uterus and ovaries are normal. There is diverticulosis without definite diverticulitis. Left hydronephrosis noted on the recent study has improved. A ureteral calculus is not identified. Bladder is unremarkable. Appendix is upper normal in size but there is not evidence of which suggests an acute appendicitis. IMPRESSION: 1. Cholelithiasis. 2. Atrophy of the right kidney. 3. Improved left hydronephrosis. 4. Fluid in the pelvis probably related to dialysis. PQRS Compliance Statement: One or more of the following individualized dose reduction techniques were utilized for this examination: 1. Automated exposure control 2. Adjustment of the mA and/or kV according to patient size 3. Use of iterative reconstruction technique Electronically signed by: Julian Ortega MD (12/28/2018 3:17 AM) [facility]
[2018-12-28] MEDS ORDERED: ONDA4TAB7 PO (03:59)
--- NOTE | 2018-12-28 03:59 | PHYS DOC ---
Past Medical History Past Medical History: CAD, CHF, COPD, Diabetes-Type II, High Cholesterol, Heart Disease, Hypertension, [place], Renal Failure Additional Past Medical Histor: Carpal Tunnel Past Surgical History: Angioplasty, Coronary Bypass Surgery, Pacemaker, Other Additional Past Surgical Histo: LEFT AKA;r carpal tunne,STENTS [facility] [employer] Alcohol Use: None Drug Use: None Adult General Chief Complaint Chief Complaint: ABDOMINAL PAIN HPI HPI Patient is a 73 year old female with complex medical hx who presents with diffuse abdominal pain with N/V. She reports having pain and feels nauseated around her prior to having her dinner at 11pm last night (12/27/2018). She endorses having multiple bouts of vomitus and loose stool. For her lunch at 6pm, she had some potato salad. She did have similar episode twice in the past and had a unremarkable work-up. She reports having peritoneum dialysis daily for her CKD and can only produce a scant amount of urine. Denies any UTI symptoms. Pt received some Zofran by EMS which relieved some of her N/V. And her symptoms have gone during the time of assessment. Denies any F/C, fatigue, chest pain, SOB. Review of Systems Review of Systems Constitutional: Denies fever or chills Eyes: Denies redness or eye pain HENT: Denies nasal congestion or sore throat Respiratory: Denies cough or shortness of breath Cardiovascular: Denies chest pain or palpitations GI: Positive abdominal pain, nausea, or vomiting : Denies dysuria or hematuria Musculoskeletal: Denies back pain or joint pain Integument: Denies rash or skin lesions Neurologic: Denies headache, focal weakness or sensory changes Complete systems were reviewed and found to be within normal limits, except as documented in this note. Current Medications Current Medications Current Medications Medications (Trade) Dose Ordered Sig/Shilo Start Time Stop Time Status Last Admin Dose Admin Famotidine (Pepcid Vial) 20 mg 1X ONCE 12/28/18 02:15 12/28/18 02:16 DC 12/28/18 02:18 20 MG Ondansetron HCl (Zofran) 4 mg 1X ONCE 12/28/18 02:15 12/28/18 02:16 DC 12/28/18 02:18 4 MG Potassium Chloride (Klor-Con) 40 meq 1X ONCE 12/28/18 04:30 12/28/18 04:31 12/28/18 04:05 40 MEQ Sodium Chloride 1,000 ml @ 1,000 mls/hr 1X ONCE 12/28/18 02:15 12/28/18 03:14 DC 12/28/18 02:18 1,000 MLS/HR Allergies Allergies Allergies Coded Allergies Type Severity Reaction Last Updated Verified Penicillins Allergy Intermediate Hives 11/11/17 Yes bacitracin Allergy Intermediate 11/07/17 Yes erythromycin base Allergy Intermediate Hives 11/11/17 Yes neomycin Allergy Intermediate 11/07/17 Yes niacin Allergy Intermediate 11/07/17 Yes polymyxin B Allergy Intermediate 11/07/17 Yes Physical Exam Physical Exam Constitutional: Well developed, well nourished, no acute distress, non-toxic appearance HENT: Normocephalic, atraumatic, oropharynx moist Eyes: PERRL, EOMI, conjunctiva normal, no discharge Neck: Normal range of motion, no tenderness, supple Cardiovascular: Heart rate normal, regular rhythm Lungs & Thorax: Bilateral breath sounds clear to auscultation, no wheezing Abdomen: Soft, no tenderness Skin: Warm, dry, no erythema, no rash Back: No tenderness, no CVA tenderness Extremities: No tenderness, ROM intact, no edema Neurologic: Alert and oriented X 3, normal motor function, normal sensory function, no focal deficits noted Psychologic: Affect normal, judgement normal, mood normal Current Patient Data Vital Signs Vital Signs Date Time Temp Pulse Resp B/P (MAP) Pulse Ox O2 Delivery O2 Flow Rate FiO2 12/28/18 00:54 98.9 104 19 160/70 (100) 97 Room Air 98.9 Lab Values Laboratory Tests Test 12/28/18 01:20 12/28/18 02:00 Stool Occult Blood Negative (NEG) White Blood Count 17.5 x10^3/uL (4.0-11.0) H Red Blood Count 3.57 x10^6/uL (3.50-5.40) Hemoglobin 10.8 g/dL (12.0-15.5) L Hematocrit 30.8 % (36.0-47.0) L Mean Corpuscular Volume 86 fL (79-100) Mean Corpuscular Hemoglobin 30 pg (25-35) Mean Corpuscular Hemoglobin Concent 35 g/dL (31-37) Red Cell Distribution Width 16.6 % (11.5-14.5) H Platelet Count 440 x10^3/uL (140-400) H Neutrophils (%) (Auto) 82 % (31-73) H Lymphocytes (%) (Auto) 8 % (24-48) L Monocytes (%) (Auto) 8 % (0-9) Eosinophils (%) (Auto) 2 % (0-3) Basophils (%) (Auto) 1 % (0-3) Neutrophils # (Auto) 14.3 x10^3/uL (1.8-7.7) H Lymphocytes # (Auto) 1.4 x10^3/uL (1.0-4.8) Monocytes # (Auto) 1.4 x10^3/uL (0.0-1.1) H Eosinophils # (Auto) 0.3 x10^3/uL (0.0-0.7) Basophils # (Auto) 0.1 x10^3/uL (0.0-0.2) Segmented Neutrophils % 80 % (35-66) H Band Neutrophils % 3 % (0-9) Lymphocytes % 6 % (24-48) L Monocytes % 7 % (0-10) Eosinophils % 4 % (0-5) Toxic Granulation Slight Platelet Estimate Adequate (ADEQUATE) Anisocytosis Slight Prothrombin Time 13.1 SEC (11.7-14.0) Prothrombin Time INR 1.0 (0.8-1.1) Activated Partial Thromboplast Time 32 SEC (24-38) Sodium Level 134 mmol/L (136-145) L Potassium Level 3.1 mmol/L (3.5-5.1) L Chloride Level 93 mmol/L (98-107) L Carbon Dioxide Level 24 mmol/L (21-32) Anion Gap 17 (6-14) H Blood Urea Nitrogen 46 mg/dL (7-20) H Creatinine 9.8 mg/dL (0.6-1.0) H Estimated GFR (Cockcroft-Gault) 3.9 BUN/Creatinine Ratio 5 (6-20) L Glucose Level 131 mg/dL (70-99) H Lactic Acid Level 1.7 mmol/L (0.4-2.0) Calcium Level 9.1 mg/dL (8.5-10.1) Total Bilirubin 0.6 mg/dL (0.2-1.0) Aspartate Amino Transferase (AST) 11 U/L (15-37) L Alanine Aminotransferase (ALT) 8 U/L (14-59) L Alkaline Phosphatase 78 U/L (46-116) Creatine Kinase 63 U/L (26-192) Creatine Kinase MB (Mass) 1.7 ng/mL (0.0-3.6) Creatine Kinase MB Relative Index % (0-4) Troponin I Quantitative 0.059 ng/mL (0.000-0.055) Total Protein 6.8 g/dL (6.4-8.2) Albumin 2.5 g/dL (3.4-5.0) L Albumin/Globulin Ratio 0.6 (1.0-1.7) L Lipase 209 U/L (73-393) Laboratory Tests 12/28/18 02:00 Laboratory Tests 12/28/18 02:00 EKG EKG At 1:26 (12/28/2018) ventricularly paced at the rate of 87. Some PVCs with wondering baseline Radiology/Procedures Radiology/Procedures [] Course & Med Decision Making Course & Med Decision Making Pertinent Labs and Imaging studies reviewed. (See chart for details) Pt presents with diffused abdominal pain. Pt also has N/V. We ordered labs which are unremarkable except for her potassium level being low and high WBC, presumed gastroenteritis. Pt has hypokalemia at baseline and takes potassium pills. CT abdomen obtained, which showed atrophy of the right kidney and fluid in the peritoneum which is consistent with her CKD on peritoneum dialysis. Troponin is slightly elevated, which could be from her CKD. Pt also denies any chest pain or SOB. Discussed with pts about option to admit for further monitoring vs discharge. She preferred to be discharged and f/u outpatient. [] Dragon Disclaimer Dragon Disclaimer This electronic medical record was generated, in whole or in part, using a voice recognition dictation system. Departure Departure Impression: Primary Impression: Abdominal pain Additional Impressions: Nausea & vomiting Diarrhea Disposition: 01 HOME, SELF-CARE Condition: IMPROVED Referrals: EDER CHAO MD (PCP) Patient Instructions: Abdominal Pain (Nonspecific), Diarrhea, [id number], Diet for Diarrhea, Adult, Nausea and Vomiting, [id number] Scripts Ondansetron Hcl (ZOFRAN) 4 Mg Tablet 1 TAB PO Q8HRS PRN for NAUSEA, #14 TAB Prov: REGGIE MONTGOMERY DO 12/28/18 Problem Qualifiers Primary Impression: Abdominal pain Abdominal location: generalized Qualified Codes: R10.84 - Generalized abdominal pain Additional Impressions: Nausea & vomiting Vomiting type: unspecified Vomiting Intractability: non-intractable Qualified Codes: R11.2 - Nausea with vomiting, unspecified Diarrhea Diarrhea type: unspecified type Qualified Codes: R19.7 - Diarrhea, unspecified REGGIE MONTGOMERY DO Dec 28, 2018 03:59
[2018-12-28 04:00] VITALS: BP 118/70
[2018-12-28] MEDS ORDERED: POTASSIUM CHLORIDE 20 MEQ TABLET.ER. PO ONE (04:30)
--- NOTE | 2018-12-29 04:54 | EKG ---
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
== END 2018-12-28 04:13 | disposition home or self-care (01) ==
LOC: ER 00:42
DX: R10.84 Generalized abdominal pain (principal); R11.2 Nausea with vomiting, unspecified; R19.7 Diarrhea, unspecified; J44.9 Chronic obstructive pulmonary disease, unspecified; E78.00 Pure hypercholesterolemia, unspecified; E11.22 Type 2 diabetes mellitus with diabetic chronic kidney disease; I13.0 Hypertensive heart and chronic kidney disease with heart failure and stage 1 through stage 4 chronic kidney disease, or unspecified chronic kidney disease; N18.9 Chronic kidney disease, unspecified; I50.9 Heart failure, unspecified; I25.2 Old myocardial infarction; I25.10 Atherosclerotic heart disease of native coronary artery without angina pectoris; Z95.1 Presence of aortocoronary bypass graft; Z95.5 Presence of coronary angioplasty implant and graft; Z95.0 Presence of cardiac pacemaker; Z88.0 Allergy status to penicillin; Z88.1 Allergy status to other antibiotic agents
CPT/HCPCS: 36415; 74176; 80053; 82274; 82553; 83605; 83690; 84484; 85007; 85025; 85610; 85730; 87045; 87493; 93005; 96361; 96374; 96375; 99285; J2405; J3490; J7030

== ENCOUNTER 2019-01-17 08:48 | Inpatient (IN) | payer MEDICARE, OTHER ==
[~2019-01-17] VITALS: Ht 170.2 cm; Wt 60.4 kg
[2019-01-17] MEDS ORDERED: ONDANSETRON PF 4 MG/2 ML VIAL. IV ONE (09:15)
[2019-01-17] MEDS ORDERED: fentaNYL PF VIAL 100 MCG/2 ML VIAL IV ONE ×2 (09:30→12:15)
[2019-01-17] MEDS ORDERED: fentaNYL PF VIAL 100 MCG/2 ML VIAL ONE (09:32)
--- NOTE | 2019-01-17 09:37 | RAD ---
Indication:Weakness and abdominal pain. TECHNIQUE:Portable AP chest X-ray COMPARISON: 10/14/2018. FINDINGS: CABG changes noted. Stable position of left chest wall cardiac pacer with its lead projecting over the heart. Heart is normal in size. Mild bilateral interstitial opacities are seen. No focal consolidation. No pneumothorax or pleural effusion. Visualized bony thorax within normal limits. IMPRESSION: Mild bilateral interstitial opacities may be secondary to chronic interstitial changes or atypical/viral infection. Electronically signed by: Reza Simmons DO (01/17/2019 9:34 AM) [facility]
[2019-01-17 09:40] LABS: BASO # 0.1 x10^3/uL (0.0-0.2); BASO % 1 % (0-3); EOS # 0.3 x10^3/uL (0.0-0.7); EOS % 3 % (0-3); HEMATOCRIT 25.6 % (36.0-47.0); HEMOGLOBIN 8.7 g/dL (12.0-15.5); LYMPH # 1.2 x10^3/uL (1.0-4.8); LYMPH % 11 % (24-48); MEAN CORPUSCULAR HEMOGLOBIN 31 pg (25-35); MEAN CORPUSCULAR HGB CONC 34 g/dL (31-37); MEAN CORPUSCULAR VOLUME 91 fL (79-100); MONO # 0.9 x10^3/uL (0.0-1.1); MONO % 7 % (0-9); NEUT # 9.3 x10^3/uL (1.8-7.7); NEUT % 79 % (31-73); PLATELET COUNT 379 x10^3/uL (140-400); RED BLOOD COUNT 2.81 x10^6/uL (3.50-5.40); RED CELL DISTRIBUTION WIDTH 16.7 % (11.5-14.5); WHITE BLOOD COUNT 11.8 x10^3/uL (4.0-11.0)
[2019-01-17 09:42] LABS: CALCIUM 9.7 mg/dL (8.5-10.1); CREATININE 8.2 mg/dL (0.6-1.0); GFR 4.8; POTASSIUM 4.4 mmol/L (3.5-5.1)
[2019-01-17 09:49] LABS: ALBUMIN 2.7 g/dL (3.4-5.0); ALBUMIN/GLOBULIN RATIO 0.8 (1.0-1.7); MAGNESIUM 1.2 mg/dL (1.8-2.4); TOTAL BILIRUBIN 0.4 mg/dL (0.2-1.0)
--- NOTE | 2019-01-17 10:10 | RAD ---
PQRS Compliance statement: One or more of the following individualized dose reduction techniques were utilized for this examination: 1. Automated exposure control. 2. Adjustment of the mA and/or kV according to patient size. 3. Use of iterative reconstruction technique. Indication:Abdominal pain. TECHNIQUE: CT abdomen and pelvis without IV contrast with multiplanar reformats. COMPARISON: 12/28/2018. FINDINGS: Partially visualized are pacemaker leads in the heart. Heart is normal in size. Clear lung bases. Noncontrast appearance of the liver, spleen, pancreas, adrenals within normal limits. Atrophic right kidney. No hydronephrosis or nephrolithiasis. Peritoneal dialysis catheter is seen in the pelvis. Trace amount of perihepatic and perisplenic ascites. Small amount of free pelvic fluid. No enlarged retroperitoneal or pelvic adenopathy. Severe atherosclerotic plaque is seen in the abdominal aorta and splenic artery. Significant plaque in the origin of the SMA and bilateral renal arteries. No bowel obstruction. Uterus is present. Urinary bladder demonstrates no radiopaque stone. No pneumoperitoneum. Normal appendix. Osteopenia. No suspicious bony lesion. IMPRESSION: Limited evaluation of solid abdominal and pelvic organs due to lack of IV contrast. 1. Trace amount of ascites likely dialysis related. 2. No bowel obstruction. 2. Severe atherosclerotic disease of the abdominal aorta and origin of the major branches. Electronically signed by: Reza Simmons DO (01/17/2019 10:07 AM) [facility]
[2019-01-17] MEDS ORDERED: VANCOMYCIN 1GM IVPB FOR OMNI 250 ML IV ONE (10:45)
[2019-01-17] MEDS ORDERED: cefTRIAXone IV Push 1 GM VIAL. IVP ONE (10:45)
[2019-01-17] MEDS ORDERED: dilTIAZem IV PUSH 25 MG/5 ML VIAL IVP ONE (10:45)
[2019-01-17] MEDS ORDERED: MAGNESIUM SULFATE 2GM 50 ML IV ONE (10:45)
--- NOTE | 2019-01-17 10:49 | EKG ---
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
--- NOTE | 2019-01-17 10:49 | PHYS DOC ---
Past Medical History Past Medical History: CAD, CHF, COPD, Diabetes-Type II, High Cholesterol, Heart Disease, Hypertension, [place], Renal Failure Additional Past Medical Histor: Carpal Tunnel Past Surgical History: Angioplasty, Coronary Bypass Surgery, Pacemaker, Other Additional Past Surgical Histo: LEFT AKA;r carpal tunne,STENTS [facility] [employer] PACEM[employer] Alcohol Use: None Drug Use: None Adult General Chief Complaint Chief Complaint: ABDOMINAL PAIN HPI HPI Patient is a 73 year old patient with peritoneal dialysis and frequent emergency room visits and hospitalization who lives at home with her son brought in by EMS because of diarrhea and weakness. Patient's son states she had blood test 6 days ago and had a call from his physician office regarding prescription for potassium of 6.9 three days ago but the prescription ventricular chronic thrombus and did not think it the medication. Patient's son states she usually has 4 or 5 episodes of loose stool a day but this morning 3 episodes of diarrhea that was more than her usual generalized weakness and nausea without vomiting. Patient complaining of right-sided abdominal pain and rated her pain 8/10 and denies focal neuro deficit and chest pain. Review of Systems Review of Systems Constitutional: Denies fever or chills [] Eyes: Denies change in visual acuity, redness, or eye pain [] HENT: Denies nasal congestion or sore throat [] Respiratory: Denies cough or shortness of breath [] Cardiovascular: No additional information not addressed in HPI [] GI: Reports abdominal pain, nausea, vomiting, bloody stools or diarrhea [] : Denies dysuria or hematuria [] Musculoskeletal: Denies back pain or joint pain [] Integument: Denies rash or skin lesions [] Neurologic: Denies headache, focal weakness or sensory changes [] Endocrine: Denies polyuria or polydipsia [] All other systems were reviewed and found to be within normal limits, except as documented in this note. Current Medications Current Medications Current Medications Medications (Trade) Dose Ordered Sig/Shilo Start Time Stop Time Status Last Admin Dose Admin Ceftriaxone Sodium (Rocephin) 1 gm 1X ONCE 01/17/19 10:45 01/17/19 10:53 DC 01/17/19 12:10 1 GM Diltiazem HCl (Cardizem Iv Push) 15 mg 1X ONCE 01/17/19 10:45 01/17/19 10:53 DC 01/17/19 11:06 15 MG Fentanyl Citrate (Fentanyl 2ml Vial) 100 mcg STK-MED ONCE 01/17/19 09:32 01/17/19 09:32 DC Magnesium Sulfate 50 ml @ 25 mls/hr 1X ONCE 01/17/19 10:45 01/17/19 12:44 DC 01/17/19 11:07 25 MLS/HR Ondansetron HCl (Zofran) 4 mg 1X ONCE 01/17/19 09:15 01/17/19 09:16 DC 01/17/19 09:43 4 MG Vancomycin HCl 250 ml @ 250 mls/hr 1X ONCE 01/17/19 10:45 01/17/19 11:44 DC 01/17/19 12:16 250 MLS/HR Allergies Allergies Allergies Coded Allergies Type Severity Reaction Last Updated Verified Penicillins Allergy Intermediate Hives 11/11/17 Yes bacitracin Allergy Intermediate 11/07/17 Yes erythromycin base Allergy Intermediate Hives 11/11/17 Yes neomycin Allergy Intermediate 11/07/17 Yes niacin Allergy Intermediate 11/07/17 Yes polymyxin B Allergy Intermediate 11/07/17 Yes Physical Exam Physical Exam Constitutional: Mild distress, non-toxic appearance, afebrile. [] HENT: Normocephalic, atraumatic. Eyes: PERRLA, EOMI, conjunctiva normal, no discharge. [] Neck: Normal range of motion, no tenderness, supple, no stridor. [] Cardiovascular: Irregularly irregular rhythm tachycardia, no murmur [] Lungs & Thorax: Bilateral breath sounds clear to auscultation [] Abdomen: Bowel sounds normal, abdomen markedly distended , guarding without tenderness, no masses, no pulsatile masses. [] Skin: Warm, dry, no erythema, no rash. [] Back: No tenderness, no CVA tenderness. [] Extremities: No tenderness, no cyanosis, no clubbing, ROM intact, 1+ bilateral lower extremity edema. [] Neurologic: Alert and oriented X 3, no focal deficits noted. [] Psychologic: Affect normal, judgement normal, mood normal. [] Current Patient Data Vital Signs Vital Signs Date Time Temp Pulse Resp B/P (MAP) Pulse Ox O2 Delivery O2 Flow Rate FiO2 01/17/19 09:43 16 01/17/19 08:52 97.8 83 118/70 (86) 97 97.8 Lab Values Laboratory Tests Test 01/17/19 09:13 01/17/19 09:17 01/17/19 10:12 POC Troponin I 0.04 ng/ml (<0.08) White Blood Count 11.8 x10^3/uL (4.0-11.0) H Red Blood Count 2.81 x10^6/uL (3.50-5.40) L Hemoglobin 8.7 g/dL (12.0-15.5) L Hematocrit 25.6 % (36.0-47.0) L Mean Corpuscular Volume 91 fL (79-100) Mean Corpuscular Hemoglobin 31 pg (25-35) Mean Corpuscular Hemoglobin Concent 34 g/dL (31-37) Red Cell Distribution Width 16.7 % (11.5-14.5) H Platelet Count 379 x10^3/uL (140-400) Neutrophils (%) (Auto) 79 % (31-73) H Lymphocytes (%) (Auto) 11 % (24-48) L Monocytes (%) (Auto) 7 % (0-9) Eosinophils (%) (Auto) 3 % (0-3) Basophils (%) (Auto) 1 % (0-3) Neutrophils # (Auto) 9.3 x10^3/uL (1.8-7.7) H Lymphocytes # (Auto) 1.2 x10^3/uL (1.0-4.8) Monocytes # (Auto) 0.9 x10^3/uL (0.0-1.1) Eosinophils # (Auto) 0.3 x10^3/uL (0.0-0.7) Basophils # (Auto) 0.1 x10^3/uL (0.0-0.2) Sodium Level 141 mmol/L (136-145) Potassium Level 4.4 mmol/L (3.5-5.1) Chloride Level 101 mmol/L (98-107) Carbon Dioxide Level 23 mmol/L (21-32) Anion Gap 17 (6-14) H Blood Urea Nitrogen 38 mg/dL (7-20) H Creatinine 8.2 mg/dL (0.6-1.0) H Estimated GFR (Cockcroft-Gault) 4.8 BUN/Creatinine Ratio 5 (6-20) L Glucose Level 144 mg/dL (70-99) H Lactic Acid Level 2.1 mmol/L (0.4-2.0) H Calcium Level 9.7 mg/dL (8.5-10.1) Magnesium Level 1.2 mg/dL (1.8-2.4) L Total Bilirubin 0.4 mg/dL (0.2-1.0) Aspartate Amino Transferase (AST) 9 U/L (15-37) L Alanine Aminotransferase (ALT) 10 U/L (14-59) L Alkaline Phosphatase 75 U/L (46-116) Creatine Kinase 35 U/L (26-192) Troponin I Quantitative 0.036 ng/mL (0.000-0.055) Total Protein 6.0 g/dL (6.4-8.2) L Albumin 2.7 g/dL (3.4-5.0) L Albumin/Globulin Ratio 0.8 (1.0-1.7) L Lipase 85 U/L (73-393) Prothrombin Time 13.0 SEC (11.7-14.0) Prothrombin Time INR 1.0 (0.8-1.1) Laboratory Tests 01/17/19 09:17 Laboratory Tests 01/17/19 09:17 EKG EKG EKG interpreted by me. EKG at 0 925 showed just evaluation with RVR at rate of 99, PVCs, left axis deviation, left anterior fascicular block, right bundle branch block, bifascicular block, LVH, no acute ST and T-wave elevation Radiology/Procedures Radiology/Procedures [][facility] [address] [place], [place] [id number] IMAGING REPORT Signed PATIENT: MARISA RIOJAS ACCOUNT: [id number] : 1945 LOCATION: ER AGE: 73 SEX: F EXAM STATUS: PRE ER ORD. PHYSICIAN: SONAL CEDENO MD REASON: weakness and abdominal pain PROCEDURE: PORTABLE CHEST 1V Indication:Weakness and abdominal pain. TECHNIQUE:Portable AP chest X-ray COMPARISON: 10/14/2018. FINDINGS: CABG changes noted. Stable position of left chest wall cardiac pacer with its lead projecting over the heart. Heart is normal in size. Mild bilateral interstitial opacities are seen. No focal consolidation. No pneumothorax or pleural effusion. Visualized bony thorax within normal limits. IMPRESSION: Mild bilateral interstitial opacities may be secondary to chronic interstitial changes or atypical/viral infection. Electronically signed by: Reza Simmons DO (01/17/2019 9:34 AM) [facility] DICTATED and SIGNED BY: REZA SIMMONS DO DATE: 01/17/19 0934 [facility] [address] [place] [address] IMAGING REPORT Signed PATIENT: MARISA RIOJAS ACCOUNT: [id number] : 1945 LOCATION: ER AGE: 73 SEX: F EXAM STATUS: PRE ER ORD. PHYSICIAN: SONAL CEDENO MD REASON: abdominal pain PROCEDURE: CT ABDOMEN PELVIS WO CONTRAST PQRS Compliance statement: One or more of the following individualized dose reduction techniques were utilized for this examination: 1. Automated exposure control. 2. Adjustment of the mA and/or kV according to patient size. 3. Use of iterative reconstruction technique. Indication:Abdominal pain. TECHNIQUE: CT abdomen and pelvis without IV contrast with multiplanar reformats. COMPARISON: 12/28/2018. FINDINGS: Partially visualized are pacemaker leads in the heart. Heart is normal in size. Clear lung bases. Noncontrast appearance of the liver, spleen, pancreas, adrenals within normal limits. Atrophic right kidney. No hydronephrosis or nephrolithiasis. Peritoneal dialysis catheter is seen in the pelvis. Trace amount of perihepatic and perisplenic ascites. Small amount of free pelvic fluid. No enlarged retroperitoneal or pelvic adenopathy. Severe atherosclerotic plaque is seen in the abdominal aorta and splenic artery. Significant plaque in the origin of the SMA and bilateral renal arteries. No bowel obstruction. Uterus is present. Urinary bladder demonstrates no radiopaque stone. No pneumoperitoneum. Normal appendix. Osteopenia. No suspicious bony lesion. IMPRESSION: Limited evaluation of solid abdominal and pelvic organs due to lack of IV contrast. 1. Trace amount of ascites likely dialysis related. 2. No bowel obstruction. 2. Severe atherosclerotic disease of the abdominal aorta and origin of the major branches. Electronically signed by: Reza Simmons DO (01/17/2019 10:07 AM) [facility] DICTATED and SIGNED BY: REZA SIMMONS DO DATE: 01/17/19 1007 Course & Med Decision Making Course & Med Decision Making Pertinent Labs and Imaging studies reviewed. (See chart for details) Evaluation of patient in ER showed 73-year-old male patient with history of ureteral dialysis of frequent emergency room visits brought in because of diarrhea and possible elevation of potassium. Patient does not 0.4. Patient had atrial flutter patient with RVR and treated with 50 mg of Cardizem decrease of heart rate 80s at atrial fibrillation. She had elevation of lactic acid and treated with ABX without IV fluids regarding to renal failure. Abdominal pain improved with fentanyl. Patient requiring admission for further evaluation and treatment. Discussed with Dr. Andrew Pritchard who is in agreement with admission. Discussed findings and plan with patient and family, who acknowledge understanding and agreement. Dragon Disclaimer Dragon Disclaimer This electronic medical record was generated, in whole or in part, using a voice recognition dictation system. Departure Departure Impression: Primary Impression: Sepsis Additional Impressions: ESRD (end stage renal disease) Abdominal pain Diarrhea Generalized weakness Hypomagnesemia Disposition: ADMITTED INPATIENT (at 1045) Admitting Physician: Andrew Pritchard (extensive admission at 1042) Condition: IMPROVED Referrals: EDER CHAO MD (PCP) Date and Time of Reassessment Date: Nov 07, 2017 Time: 11:00 Fluid Challenge Is the fluid challenge complet: No IBW Target Volume Used: No BMI > 30: No Vital Signs Vital Signs: Vital Signs Date Time Temp Pulse Resp B/P (MAP) Pulse Ox O2 Delivery O2 Flow Rate FiO2 01/17/19 09:43 16 01/17/19 08:52 97.8 83 118/70 (86) 97 97.8 Temperature Source: Oral Respirations Respiratory Effort: Normal Cardiovascular Pulse Rhythm: Irregular Heart: No rubs, clicks or gallop Lung Sounds Breath Sounds: Clear Capillary Refil Capillary Refill: Rt Hand < 3 seconds Peripheral Pulse Pulse Location: Radial Pulse Strength: Normal (2+) Pulse Assessment Method: NIBP (cr) Critical Care Time Critical care time was 50 minutes exclusive of procedures. Problem Qualifiers Primary Impression: Sepsis Sepsis type: sepsis due to unspecified organism Sepsis acute organ dysfunction status: unspecified Qualified Codes: A41.9 - Sepsis, unspecified organism Additional Impressions: Abdominal pain Abdominal location: unspecified location Qualified Codes: R10.9 - Unspecified abdominal pain Diarrhea Diarrhea type: unspecified type Qualified Codes: R19.7 - Diarrhea, unspecified SONAL CEDENO MD Jan 17, 2019 10:49
[2019-01-17 13:00] VITALS: BP 140/80
[2019-01-17 15:00] VITALS: BP 149/84
[2019-01-17] MEDS ORDERED: FLU VAX QS 2019-20 (36MOS+)/PF 0.5 ML SYRINGE. VAX IM ONE (16:15)
[2019-01-17 20:00] VITALS: BP 175/100
[2019-01-17] MEDS: HYDROcodone/APAP 5/325MG 1 TAB TABLET PO PRN (21:29)
[2019-01-17] MEDS: CYCLOBENZAPRINE 10 MG TABLET. PO PRN (23:25)
[2019-01-18] VITALS (7 sets, daily range): BP systolic 105–169; BP diastolic 52–94
[2019-01-18] MEDS ORDERED: ONDANSETRON ODT 4 MG TAB.RAPDIS. PO PRN (11:30)
[2019-01-18] MEDS: ISOSORBIDE MONONITRATE ER 30 MG TAB.ER.24H PO SCH (11:43)
[2019-01-18] MEDS: LABETALOL HCL 100 MG TABLET. PO SCH ×2 (11:43→20:56)
[2019-01-18] MEDS: HYDROcodone/APAP 5/325MG 1 TAB TABLET PO PRN ×2 (11:43→20:57)
[2019-01-18] MEDS: CYCLOBENZAPRINE 10 MG TABLET. PO PRN (11:43)
[2019-01-18] MEDS: CHOLECALCIFEROL (VITAMIN D3) 1,000 UNIT TABLET PO SCH (11:44)
[2019-01-18] MEDS: CALCIUM CARBONATE 500 MG TABLET PO SCH (11:44)
[2019-01-18] MEDS: CALCIUM ACETATE 667 MG CAPSULE PO SCH ×2 (11:44→17:10)
[2019-01-18] MEDS: CLOPIDOGREL BISULFATE 75 MG TABLET PO SCH (11:45)
[2019-01-18] MEDS: CYANOCOBALAMIN (VITAMIN B-12) 1,000 MCG TABLET. PO SCH (11:45)
[2019-01-18] MEDS: MAGNESIUM OXIDE 400 MG TABLET PO SCH (11:45)
[2019-01-18] MEDS: IPRATRPIUM/ALBUTEROL 0.5/2.5MG 3 ML NEBU. NEB SCH ×3 (12:00→20:04)
[2019-01-18 12:17] LABS: BF CLARITY CLEAR; BF COLOR STRAW; BF MON % 92 %; BF PMN % 8 %; BF RBC COUNT 4 /cmm (Not Established); BF SOURCE PERIT DIALYSATE; BF WBC COUNT 35 /cmm (Not Established)
--- NOTE | 2019-01-18 12:34 | HP ---
ADMIT DATE: 01/17/2019 CHIEF COMPLAINT AND HISTORY OF PRESENT ILLNESS: This is a 73-year-old white female, a patient of Dr. Christina Pritchard, who presented to the emergency room with her son on the day of admission because of 2-3 days of abdominal pain and diarrhea. She is on chronic peritoneal dialysis at home with end-stage renal disease. She did have a little bit of nausea without vomiting along with this, was complaining of abdominal pain at 8/10 in the emergency room, and admitted for the weakness and dehydration with diarrhea with her meeting sepsis criteria at the time of admission. She was also low on magnesium. PAST MEDICAL HISTORY: Remarkable for the end-stage renal disease, on peritoneal dialysis. She has a history of coronary artery disease, chronic obstructive pulmonary disease, congestive heart failure, diabetes, hyperlipidemia, hypertension, and prior myocardial infarction. PAST SURGICAL HISTORY: Remarkable for coronary artery bypass surgery, pacemaker, carpal tunnel release on the right, and left traumatic [id number] amputation many years ago. MEDICATIONS: Brought with the patient, listed on the computer, and have been addressed. ALLERGIES: SHE IS ALLERGIC TO PENICILLIN, BACITRACIN, ERYTHROMYCIN BASE, NEOMYCIN, NIACIN, AND POLYMYXIN B. SOCIAL HISTORY: Noncontributory. FAMILY HISTORY: Noncontributory. REVIEW OF SYSTEMS: As mentioned above. PHYSICAL EXAMINATION: GENERAL: She is a well-developed, well-nourished white female, who appears chronically ill. VITAL SIGNS: Stable. She is afebrile. HEENT: Unremarkable. NECK: Supple, without lymphadenopathy or thyromegaly. CHEST: Clear to auscultation and percussion. HEART: Irregularly irregular with a rate of anywhere from 100 to 120 while I am in the room. ABDOMEN: Soft and nontender without hepatosplenomegaly or masses and she does state that it was really painful last night and had to stop peritoneal dialysis because of the same. EXTREMITIES: Without cyanosis, clubbing, or edema. She does have the left peyhc-buo-[id number] amputation. NEUROLOGIC: Intact. LABORATORY DATA: Initial laboratories include a white count of 11,800, hemoglobin 8.7. She does have a left shift on her differential. Platelet count is 379,000. BUN 38, creatinine 8.2 on admission, potassium was 4.4. Lactic acid was elevated at 2.1 but has decreased since admission. Magnesium was low at 1.2, albumin low at 2.7. IMPRESSION: 1. Diarrhea with weakness in a patient on chronic peritoneal dialysis, who meets sepsis criteria. 2. Abdominal pain. 3. End-stage renal disease. 4. Generalized weakness. 5. Hypomagnesemia. 6. Severe protein-calorie malnutrition. PLAN: The patient has been admitted. Home medications will be restarted at this point in time and peritoneal dialysis will be attempted again. This evening, I am going to ask Renal for their opinion, but she would appear not to have any sort of peritonitis or anything at this point in time. RICHIE BAL MD DR: JAKOB/concetta JOB#: [id number] / [id number] CHRISTINA Dunn MD
--- NOTE | 2019-01-18 13:11 | PDOC2 ---
CONSULT Date of Consult Date of Consult DATE: 01/18/19 TIME: 13:02 Reason for Consult Reason for Consult: ESRD Identification/Chief Complaint Chief Complaint States feeling good Source Source: Chart review, Patient History of Present Illness Reason for Visit: This is a 73-year-old white female, a patient of Dr. Andrew Pritchard, who p resented to the emergency room with her son on the day of admission because of 2-3 days of abdominal pain and diarrhea. She did have a little bit of nausea without vomiting along with this,was complaining of abdominal pain at 8/10 in the emergency room, and admitted for the weakness and dehydration with diarrhea with her meeting sepsis criteria at the time of admission. She denied any abdominal to me, she reported that she was feeling weak and diarrhea . Yesterday she c/o pain during initial drain and PD was held . CT abdomen reported PD cath in pelvis . Past Medical History Cardiovascular: AFIB, CAD, CHF, HTN, Valve insufficiency, Other Pulmonary: COPD CENTRAL NERVOUS SYSTEM: Other GI: No pertinent hx Heme/Onc: Anemia NOS Musculoskeletal: Osteoarthritis Renal/: Chronic renal failure Endocrine: Diabetes Past Surgical History Past Surgical History: Other Family History Family History: Other Social History ALCOHOL: none Drugs: None Lives: with Family Domestic Violence: Neg Current Problem List Problem List Problems Medical Problems: (1) Abdominal pain Status: Acute (2) Diarrhea Status: Acute (3) Generalized weakness Status: Acute (4) Hypomagnesemia Status: Acute (5) Sepsis Status: Acute Current Medications Current Medications Current Medications Ondansetron HCl (Zofran) 4 mg 1X ONCE IV Last administered on 01/17/19at 09:43; Start 01/17/19 at 09:15; Stop 01/17/19 at 09:16; Status DC Fentanyl Citrate (Fentanyl 2ml Vial) 50 mcg 1X ONCE IV Last administered on 01/17/19at 09:43; Start 01/17/19 at 09:30; Stop 01/17/19 at 09:32; Status DC Fentanyl Citrate (Fentanyl 2ml Vial) 100 mcg STK-MED ONCE .ROUTE ; Start 01/17/19 at 09:32; Stop 01/17/19 at 09:32; Status DC Magnesium Sulfate 50 ml @ 25 mls/hr 1X ONCE IV Last administered on 01/17/19at 11:07; Start 01/17/19 at 10:45; Stop 01/17/19 at 12:44; Status DC Ceftriaxone Sodium (Rocephin) 1 gm 1X ONCE IVP Last administered on 01/17/19at 12:10; Start 01/17/19 at 10:45; Stop 01/17/19 at 10:53; Status DC Vancomycin HCl 250 ml @ 250 mls/hr 1X ONCE IV Last administered on 01/17/19at 12:16; Start 01/17/19 at 10:45; Stop 01/17/19 at 11:44; Status DC Diltiazem HCl (Cardizem Iv Push) 15 mg 1X ONCE IVP Last administered on 01/17/19at 11:06; Start 01/17/19 at 10:45; Stop 01/17/19 at 10:53; Status DC Fentanyl Citrate (Fentanyl 2ml Vial) 50 mcg 1X ONCE IV Last administered on 01/17/19at 12:13; Start 01/17/19 at 12:15; Stop 01/17/19 at 12:16; Status DC Influenza Virus Vaccine Quadrival (Afluria Quad 2019-20 (3yr Up) Syringe) 0.5 ml ONCE ONCE VAX IM ; Start 01/17/19 at 16:15; Stop 01/17/19 at 16:16; Status UNV Acetaminophen/ Hydrocodone Bitart (Lortab 5/325) 1 tab PRN TID PRN PO PAIN Last administered on 01/18/19at 11:48; Start 01/17/19 at 21:30 Cyclobenzaprine HCl (Flexeril) 10 mg PRN TID PRN PO MUSCLE SPASMS Last administered on 01/18/19at 11:48; Start 01/17/19 at 23:15; Stop 01/18/19 at 12:5 4; Status DC Atorvastatin Calcium (Lipitor) 40 mg HS PO ; Start 01/18/19 at 21:00 Clopidogrel Bisulfate (Plavix) 75 mg DAILY PO Last administered on 01/18/19at 11:48; Start 01/18/19 at 12:00 Cyanocobalamin (Vitamin B-12) 2,500 mcg DAILY PO Last administered on 01/18/19at 11:48; Start 01/18/19 at 12:00 Cyclobenzaprine HCl (Flexeril) 10 mg TID PO ; Start 01/18/19 at 14:00 Diltiazem HCl (Cardizem 24hr Cd) 240 mg DAILY PO Last administered on 01/18/19 11:48; Start 01/18/19 at 12:00 Albuterol/ Ipratropium (Duoneb) 3 ml RTQID NEB ; Start 01/18/19 at 12:00 Labetalol HCl (Trandate) 100 mg BID PO Last administered on 01/18/19at 11:48; Start 01/18/19 at 12:00 Non-Formulary Medication (Ascorbate Calcium/ Bioflavonoid (Paz-C 1,000 Mg Tablet)) 1 each DAILY PO ; Start 01/19/19 at 09:00; Status UNV Calcium Acetate (Phoslo) 667 mg TIDWMEALS PO Last administered on 01/18/19 11:48; Start 01/18/19 at 12:00 Calcium Carbonate/ Glycine (Oscal) 500 mg DAILY PO Last administered on 01/18/19 11:48; Start 01/18/19 at 13:00 Vitamin D (Vitamin D3) 2,000 unit DAILY PO Last administered on 01/18/19 11:48; Start 01/18/19 at 12:00 Isosorbide Mononitrate (Imdur) 120 mg DAILY PO Last administered on 01/18/19 11:48; Start 01/18/19 at 12:00 Magnesium Oxide (Magnesium Oxide) 400 mg DAILY PO Last administered on 01/18/19 11:48; Start 01/18/19 at 12:00 Ondansetron HCl (Zofran Odt) 4 mg PRN Q6HRS PRN PO NAUSEA/VOMITING; Start 01/18/19 at 11:30 Active Scripts Active Zofran (Ondansetron Hcl) 4 Mg Tablet 1 Tab PO PRN Q6-8HRS Cyclobenzaprine Hcl 10 Mg Tablet 1 Tab PO TID Duoneb 0.5-3(2.5) Mg/3 Ml (Albuterol/Ipratropium) 3 Ml Ampul.neb 3 Ml NEB RTQID 30 Days Diltiazem 24Hr Cd (Diltiazem HCl) 240 Mg Cap.er.24h 240 Mg PO DAILY 30 Days Reported Calcium Acetate 667 Mg Tablet 667 Mg PO TIDWMEALS Labetalol Hcl 100 Mg Tablet 100 Mg PO BID Vitamin B-12 (Cyanocobalamin (Vitamin B-12)) 1,000 Mcg Tablet 2,500 Mcg PO DAILY Calcium (Calcium Carbonate) 600 Mg Tablet 600 Mg PO DAILY Magnesium (Magnesium Oxide) 400 Mg Capsule 1 Cap PO DAILY Hydrocodone-Apap 5-325 (Hydrocodone Bit/Acetaminophen) 1 Each Tablet 1 Tab PO PRN TID PRN Paz-C 1,000 Mg Tablet (Ascorbate Calcium/Bioflavonoid) 1 Each Tablet 1 Each PO DAILY Atorvastatin Calcium 40 Mg Tablet 40 Mg PO HS Vitamin D3 (Cholecalciferol (Vitamin D3)) 1,000 Unit Capsule 2,000 Unit PO DAILY Imdur (Isosorbide Mononitrate) 120 Mg Tab.er.24h 120 Mg PO DAILY Clopidogrel (Clopidogrel Bisulfate) 75 Mg Tablet 75 Mg PO DAILY Allergies Allergies: Coded Allergies: Penicillins (Verified Allergy, Intermediate, Hives, 11/11/17) itching bacitracin (Verified Allergy, Intermediate, 11/07/17) erythromycin base (Verified Allergy, Intermediate, Hives, 11/11/17) neomycin (Verified Allergy, Intermediate, 11/07/17) niacin (Verified Allergy, Intermediate, 11/07/17) polymyxin B (Verified Allergy, Intermediate, 11/07/17) ROS Review of System Per HPI Physical Exam Physical Exam GEN- NAD HEENT: Unremarkable. NECK: Supple, CHEST: Clear to auscultation HEART: Irregularly irregular ABDOMEN: Soft and nontender, PD catheter in place, No e/o infection EXTREMITIES: Without cyanosis, clubbing, or edema. s/p left AK NEUROLOGIC: Intact No Dowd Vital Signs Vital Signs Date Time Temp Pulse Resp B/P (MAP) Pulse Ox O2 Delivery O2 Flow Rate FiO2 01/18/19 11:48 112 138/64 01/18/19 11:48 Room Air 01/18/19 10:19 98.4 18 96 98.4 Assessment & Plan ESRD - On PD , held last night due to c/o pain during initial drain no issues at home Ct scan does not report any abnormal Findings or Constipation No e/o Peritonitis on PD fluid PD tonight , if still c/o pain will get KUB - dw RN Diarrhea- Per primary Generalized weakness. Hypomagnesemia- replace as indicated Normal Mg HTN- BP at goal Antihypertensives Severe protein-calorie malnutrition. Labs Labs Laboratory Tests Test 01/17/19 09:13 01/17/19 09:17 01/17/19 10:12 01/17/19 13:35 Bedside Troponin I 0.04 ng/ml (<0.08) White Blood Count 11.8 x10^3/uL (4.0-11.0) Red Blood Count 2.81 x10^6/uL (3.50-5.40) Hemoglobin 8.7 g/dL (12.0-15.5) Hematocrit 25.6 % (36.0-47.0) Mean Corpuscular Volume 91 fL (79-100) Mean Corpuscular Hemoglobin 31 pg (25-35) Mean Corpuscular Hemoglobin Concent 34 g/dL (31-37) Red Cell Distribution Width 16.7 % (11.5-14.5) Platelet Count 379 x10^3/uL (140-400) Neutrophils (%) (Auto) 79 % (31-73) Lymphocytes (%) (Auto) 11 % (24-48) Monocytes (%) (Auto) 7 % (0-9) Eosinophils (%) (Auto) 3 % (0-3) Basophils (%) (Auto) 1 % (0-3) Neutrophils # (Auto) 9.3 x10^3/uL (1.8-7.7) Lymphocytes # (Auto) 1.2 x10^3/uL (1.0-4.8) Monocytes # (Auto) 0.9 x10^3/uL (0.0-1.1) Eosinophils # (Auto) 0.3 x10^3/uL (0.0-0.7) Basophils # (Auto) 0.1 x10^3/uL (0.0-0.2) Sodium Level 141 mmol/L (136-145) Potassium Level 4.4 mmol/L (3.5-5.1) Chloride Level 101 mmol/L (98-107) Carbon Dioxide Level 23 mmol/L (21-32) Anion Gap 17 (6-14) Blood Urea Nitrogen 38 mg/dL (7-20) Creatinine 8.2 mg/dL (0.6-1.0) Estimated GFR (Cockcroft-Gault) 4.8 BUN/Creatinine Ratio 5 (6-20) Glucose Level 144 mg/dL (70-99) Lactic Acid Level 2.1 mmol/L (0.4-2.0) 1.7 mmol/L (0.4-2.0) Calcium Level 9.7 mg/dL (8.5-10.1) Magnesium Level 1.2 mg/dL (1.8-2.4) Total Bilirubin 0.4 mg/dL (0.2-1.0) Aspartate Amino Transf (AST/SGOT) 9 U/L (15-37) Alanine Aminotransferase (ALT/SGPT) 10 U/L (14-59) Alkaline Phosphatase 75 U/L (46-116) Creatine Kinase 35 U/L (26-192) Troponin I Quantitative 0.036 ng/mL (0.000-0.055) Total Protein 6.0 g/dL (6.4-8.2) Albumin 2.7 g/dL (3.4-5.0) Albumin/Globulin Ratio 0.8 (1.0-1.7) Lipase 85 U/L (73-393) Prothrombin Time 13.0 SEC (11.7-14.0) Prothromb Time International Ratio 1.0 (0.8-1.1) Test 01/17/19 18:45 01/18/19 11:32 Body Fluid Source Perit dialysate Body Fluid Color Straw Body Fluid Clarity Clear Body Fluid Nucleated Cells 35 /cmm (Not Established) Body Fluid Mononuclear WBCs (%) 92 % Body Fluid Polymorphonuclear Cells 8 % Body Fluid Total RBCs Counted 4 /cmm (Not Established) Glucose (Fingerstick) 86 mg/dL (70-99) Laboratory Tests Test 01/17/19 13:35 01/17/19 18:45 01/18/19 11:32 Lactic Acid Level 1.7 mmol/L (0.4-2.0) Body Fluid Source Perit dialysate Body Fluid Color Straw Body Fluid Clarity Clear Body Fluid Nucleated Cells 35 /cmm (Not Established) Body Fluid Mononuclear WBCs (%) 92 % Body Fluid Polymorphonuclear Cells 8 % Body Fluid Total RBCs Counted 4 /cmm (Not Established) Glucose (Fingerstick) 86 mg/dL (70-99) Review All relevant outside records, renal labs, imaging studies, telemetry/EKG's were reviewed. Images Images CT Scan abdomen- Partially visualized are pacemaker leads in the heart. Heart is normal in size. Clear lung bases. Noncontrast appearance of the liver, spleen, pancreas, adrenals within normal limits. Atrophic right kidney. No hydronephrosis or nephrolithiasis. Peritoneal dialysis catheter is seen in the pelvis. Trace amount of perihepatic and perisplenic ascites. Small amount of free pelvic fluid. No enlarged retroperitoneal or pelvic adenopathy. Severe atherosclerotic plaque is seen in the abdominal aorta and splenic artery. Significant plaque in the origin of the SMA and bilateral renal arteries. No bowel obstruction. Uterus is present. Urinary bladder demonstrates no radiopaque stone. No pneumoperitoneum. Normal appendix. Osteopenia. No suspicious bony lesion. YURIDIA IBARRA MD Jan 18, 2019 13:11
[2019-01-18 13:42] LABS: FECAL OB PT NEGATIVE (NEG)
[2019-01-18] MEDS: CYCLOBENZAPRINE 10 MG TABLET. PO SCH ×2 (13:53→20:56)
[2019-01-18] MEDS: cefTRIAXone IV Push 1 GM VIAL. IVP SCH (19:06)
[2019-01-18] MEDS: ATORVASTATIN CALCIUM 40 MG TABLET. PO SCH (20:56)
[2019-01-19 03:35] VITALS: BP 133/58
[2019-01-19] MEDS: HYDROcodone/APAP 5/325MG 1 TAB TABLET PO PRN ×2 (04:45→09:53)
[2019-01-19 07:00] VITALS: BP 135/68
[2019-01-19] MEDS: IPRATRPIUM/ALBUTEROL 0.5/2.5MG 3 ML NEBU. NEB SCH ×4 (07:17→20:47)
--- NOTE | 2019-01-19 07:49 | RAD ---
Examination: KUB History: Abdominal cramping. Patient has not been undergoing peritoneal dialysis. Comparison/Correlation: 12/07/2018 portable view of the abdomen Findings: Portable frontal views of the abdomen were obtained. Pacemaker lead is present. Vascular calcifications are present particularly the left upper quadrant. Tubing is identified overlying the left lower quadrant and terminates in the right lower pelvic region. Degenerative changes of the lower lumbar spine noted. Bilateral renal arterial stents are present. Bowel gas pattern is unremarkable with no significant distention of bowel. Impression: No obstruction. " Electronically signed by: Lakhwinder Aleman MD (01/19/2019 7:46 AM) [facility]
[2019-01-19] MEDS: ISOSORBIDE MONONITRATE ER 30 MG TAB.ER.24H PO SCH (08:30)
[2019-01-19] MEDS: CHOLECALCIFEROL (VITAMIN D3) 1,000 UNIT TABLET PO SCH (08:30)
[2019-01-19] MEDS: CYANOCOBALAMIN (VITAMIN B-12) 1,000 MCG TABLET. PO SCH (08:30)
[2019-01-19] MEDS: CLOPIDOGREL BISULFATE 75 MG TABLET PO SCH (08:30)
[2019-01-19] MEDS: CALCIUM CARBONATE 500 MG TABLET PO SCH (08:30)
[2019-01-19] MEDS: CALCIUM ACETATE 667 MG CAPSULE PO SCH ×3 (08:30→17:13)
[2019-01-19] MEDS: LABETALOL HCL 100 MG TABLET. PO SCH ×2 (08:31→22:00)
[2019-01-19] MEDS: MAGNESIUM OXIDE 400 MG TABLET PO SCH (08:31)
[2019-01-19] MEDS: CYCLOBENZAPRINE 10 MG TABLET. PO SCH ×3 (08:31→21:59)
[2019-01-19 08:50] LABS: CALCIUM 8.7 mg/dL (8.5-10.1); CREATININE 9.1 mg/dL (0.6-1.0); GFR 4.3; POTASSIUM 4.8 mmol/L (3.5-5.1)
--- NOTE | 2019-01-19 08:51 | PDOC ---
SUBJECTIVE Subjective Doing well, had pain with starting PD last night, so it was held. Had 3 loose stools yesterday, but none so far today. Lab pending for Cdiff, though doubtful. KUB and CT show PD catheter is located in pelvis where pain originates. OBJECTIVE Objective Reviewed, Vital Signs Vital Signs Date Time Temp Pulse Resp B/P (MAP) Pulse Ox O2 Delivery O2 Flow Rate FiO2 01/19/19 08:39 99 138/68 01/19/19 08:39 94 135/68 01/19/19 08:39 110 135/68 01/19/19 07:37 Room Air 01/19/19 07:17 96 Room Air 01/19/19 05:49 20 96 Room Air 01/19/19 04:45 22 96 Room Air 01/19/19 03:35 98.6 92 18 133/58 (83) 96 Room Air 98.6 01/19/19 01:01 22 96 Room Air 01/18/19 22:30 98.0 85 18 105/52 (69) 96 Room Air 98.0 01/18/19 20:57 22 96 Room Air 01/18/19 20:57 80 134/59 01/18/19 20:06 Room Air 01/18/19 20:05 96 Room Air 01/18/19 19:35 98.0 80 20 134/59 (84) 97 Room Air 98.0 01/18/19 15:21 96 Room Air 01/18/19 14:11 98.3 111 18 109/74 (86) 96 Room Air 98.3 01/18/19 11:48 112 138/64 01/18/19 11:48 106 138/64 01/18/19 11:48 114 138/64 01/18/19 11:48 Room Air 01/18/19 10:19 98.4 103 18 138/64 (88) 96 Room Air 98.4 01/18/19 09:15 Room Air I & O Intake and Output 01/19/19 06:59 Intake Total 1040 ml Output Total 250 ml Balance 790 ml Intake Oral 1040 ml Output Urine Total 100 ml Stool Total 150 ml # Bowel Movements 1 PHYSICAL EXAM Physical Exam Alert, oriented Irregularly irregular rhythm, normal rate Decreased to auscultation bilaterally, no wheezes, rales Abd soft, mildly tender to palpation in bilateral lower abdomen, suprapubic region, no guarding, rebound s/p left BKA ASSESSMENT/PLAN Assessment/Plan Abdominal pain with PD ESRD on PD Diarrhea CAD Afib, rate controlled Continue all home meds Renal following May need eval by gen surg to see about repositioning PD catheter as likely related to pain with PD COMMENT Lab Laboratory Tests Test 01/18/19 11:32 01/18/19 13:08 01/18/19 14:30 Glucose (Fingerstick) 86 mg/dL (70-99) Stool Occult Blood Negative (NEG) Magnesium Level 1.6 mg/dL (1.8-2.4) EDER CHAO MD Jan 19, 2019 08:51
[2019-01-19] MEDS ORDERED: NON FORMULARY ITEM (Ascorbate Calcium/Bioflavonoid (Ester-C 1,000 Mg Tablet) 1 EACH) PO SCH (09:00)
[2019-01-19 11:00] VITALS: BP 162/70
[2019-01-19 11:14] LABS: BASO # 0.1 x10^3/uL (0.0-0.2); BASO % 1 % (0-3); EOS # 0.3 x10^3/uL (0.0-0.7); EOS % 3 % (0-3); HEMATOCRIT 21.1 % (36.0-47.0); HEMOGLOBIN 7.3 g/dL (12.0-15.5); LYMPH # 1.4 x10^3/uL (1.0-4.8); LYMPH % 17 % (24-48); MEAN CORPUSCULAR HEMOGLOBIN 32 pg (25-35); MEAN CORPUSCULAR HGB CONC 35 g/dL (31-37); MEAN CORPUSCULAR VOLUME 91 fL (79-100); MONO # 0.8 x10^3/uL (0.0-1.1); MONO % 10 % (0-9); NEUT # 5.8 x10^3/uL (1.8-7.7); NEUT % 69 % (31-73); PLATELET COUNT 282 x10^3/uL (140-400); RED BLOOD COUNT 2.33 x10^6/uL (3.50-5.40); RED CELL DISTRIBUTION WIDTH 17.5 % (11.5-14.5); WHITE BLOOD COUNT 8.3 x10^3/uL (4.0-11.0)
[2019-01-19] MEDS ORDERED: ZOLPIDEM 5 MG TABLET. PO PRN (11:30)
[2019-01-19] MEDS ORDERED: HYDROcodone/APAP 10/325 1 TAB TABLET PO PRN (11:30)
--- NOTE | 2019-01-19 11:53 | PDOC ---
Renal-Progress Notes Subjective Notes Notes FEELS WELL. HAS LESS DIARRHEA History of Present Illness Hx of present illness BETTER, NO ABD PAIN NOW Vitals Vitals Vital Signs Date Time Temp Pulse Resp B/P (MAP) Pulse Ox O2 Delivery O2 Flow Rate FiO2 01/19/19 11:08 96 Room Air 01/19/19 08:39 99 138/68 01/19/19 07:00 97.9 18 97.9 Weight Weight [ ] I.O. Intake and Output Intake and Output 01/19/19 07:00 Intake Total 1040 ml Output Total 250 ml Balance 790 ml Intake Oral 1040 ml Output Urine Total 100 ml Stool Total 150 ml # Bowel Movements 1 Labs Labs Laboratory Tests Test 01/18/19 13:08 01/18/19 14:30 01/19/19 08:20 01/19/19 11:05 Stool Occult Blood Negative (NEG) Magnesium Level 1.6 mg/dL (1.8-2.4) Sodium Level 133 mmol/L (136-145) Potassium Level 4.8 mmol/L (3.5-5.1) Chloride Level 98 mmol/L (98-107) Carbon Dioxide Level 20 mmol/L (21-32) Anion Gap 15 (6-14) Blood Urea Nitrogen 52 mg/dL (7-20) Creatinine 9.1 mg/dL (0.6-1.0) Estimated GFR (Cockcroft-Gault) 4.3 Glucose Level 104 mg/dL (70-99) Calcium Level 8.7 mg/dL (8.5-10.1) White Blood Count 8.3 x10^3/uL (4.0-11.0) Red Blood Count 2.33 x10^6/uL (3.50-5.40) Hemoglobin 7.3 g/dL (12.0-15.5) Hematocrit 21.1 % (36.0-47.0) Mean Corpuscular Volume 91 fL (79-100) Mean Corpuscular Hemoglobin 32 pg (25-35) Mean Corpuscular Hemoglobin Concent 35 g/dL (31-37) Red Cell Distribution Width 17.5 % (11.5-14.5) Platelet Count 282 x10^3/uL (140-400) Neutrophils (%) (Auto) 69 % (31-73) Lymphocytes (%) (Auto) 17 % (24-48) Monocytes (%) (Auto) 10 % (0-9) Eosinophils (%) (Auto) 3 % (0-3) Basophils (%) (Auto) 1 % (0-3) Neutrophils # (Auto) 5.8 x10^3/uL (1.8-7.7) Lymphocytes # (Auto) 1.4 x10^3/uL (1.0-4.8) Monocytes # (Auto) 0.8 x10^3/uL (0.0-1.1) Eosinophils # (Auto) 0.3 x10^3/uL (0.0-0.7) Basophils # (Auto) 0.1 x10^3/uL (0.0-0.2) Micro Micro Microbiology 01/17/19 Blood Culture - Preliminary, Resulted NO GROWTH AFTER 2 DAYS Review of Systems Constitutional: yes: alert, oriented Ears/Nose/Throat: Yes: no symptom reported Eyes: Yes: no symptom reported Pulmonary: Yes no symptom reported Cardiovascular: Yes no symptom reported Gastrointestional: Yes: abdominal pain Genitourinary: Yes: no symptom reported Musculoskeletal: Yes: no symptom reported Skin: Yes no symptom reported Psychiatric/Neurological: Yes: no symptom reported Endocrine: Yes: no symptom reported Physical Exam General Appearance: no apparent distress Skin: warm Respiratory: decreased breath sounds Heart: S1S2 Abdomen: soft, bowel sounds present Genitourinary: bladder flat Extremities: pulses present Neurology: alert Musculoskeletal: Osteoarthritis Assessment Assessment IMP DIARRHEA-BETTER ESRD - ON PD DECONDITIONING LOW MAG ANEMIA PLAN NO EVIDENCE OF PERITONITIS AND ABD EXAM IS BENIGN WILL HAVE APD-CYCLER TRIAL AGAIN THIS PM START ARAEDUARDOP F/U DONALD SILVESTRE MD Jan 19, 2019 11:53
[2019-01-19 15:00] VITALS: BP 116/63
[2019-01-19] MEDS: cefTRIAXone IV Push 1 GM VIAL. IVP SCH (18:24)
[2019-01-19 19:30] VITALS: BP 132/66
[2019-01-19] MEDS ORDERED: DARBEPOETIN ALFA 60 MCG/0.3 ML DISP.SYRIN. SQ SCH (21:00)
[2019-01-19] MEDS: LACTOBACILLUS RHAMNOSUS GG 1 CAPSULE. PO SCH (21:57)
[2019-01-19] MEDS: ATORVASTATIN CALCIUM 40 MG TABLET. PO SCH (22:00)
[2019-01-19 23:10] VITALS: BP 163/70
[2019-01-20 03:20] VITALS: BP 102/53
[2019-01-20 04:53] LABS: HEMATOCRIT 21.9 % (36.0-47.0); HEMOGLOBIN 7.6 g/dL (12.0-15.5); RED BLOOD COUNT 2.42 x10^6/uL (3.50-5.40); RED CELL DISTRIBUTION WIDTH 17.6 % (11.5-14.5)
[2019-01-20 05:08] LABS: CALCIUM 9.3 mg/dL (8.5-10.1); CREATININE 8.2 mg/dL (0.6-1.0); GFR 4.8; POTASSIUM 3.4 mmol/L (3.5-5.1)
[2019-01-20 07:00] VITALS: BP 119/58
[2019-01-20] MEDS: IPRATRPIUM/ALBUTEROL 0.5/2.5MG 3 ML NEBU. NEB SCH ×3 (07:39→15:16)
[2019-01-20] MEDS: CALCIUM ACETATE 667 MG CAPSULE PO SCH ×2 (08:19→12:09)
[2019-01-20] MEDS: CHOLECALCIFEROL (VITAMIN D3) 1,000 UNIT TABLET PO SCH (08:19)
[2019-01-20] MEDS: LACTOBACILLUS RHAMNOSUS GG 1 CAPSULE. PO SCH (08:19)
[2019-01-20] MEDS: CALCIUM CARBONATE 500 MG TABLET PO SCH (08:19)
[2019-01-20] MEDS: CYCLOBENZAPRINE 10 MG TABLET. PO SCH ×2 (08:20→14:00)
[2019-01-20] MEDS: ISOSORBIDE MONONITRATE ER 30 MG TAB.ER.24H PO SCH (08:20)
[2019-01-20] MEDS: LABETALOL HCL 100 MG TABLET. PO SCH (08:21)
[2019-01-20] MEDS: CLOPIDOGREL BISULFATE 75 MG TABLET PO SCH (08:21)
[2019-01-20] MEDS: CYANOCOBALAMIN (VITAMIN B-12) 1,000 MCG TABLET. PO SCH (08:21)
[2019-01-20] MEDS: MAGNESIUM OXIDE 400 MG TABLET PO SCH (08:21)
--- NOTE | 2019-01-20 09:07 | PDOC3 ---
Discharge Summary Date of Admission: Jan 18, 2019 Date of Discharge: Jan 20, 2019 Admitting Diagnosis comment: Abdominal pain with PD FINAL DIAGNOSIS Problems Medical Problems: (1) Abdominal pain Status: Acute (2) Diarrhea Status: Acute (3) ESRD on peritoneal dialysis Status: Chronic (4) Generalized weakness Status: Acute (5) HTN (hypertension) Status: Chronic (6) Hypomagnesemia Status: Acute (7) Sepsis Status: Acute (8) Severe protein-calorie malnutrition Status: Chronic Brief Hospital Course Ms. Uribe is a 73 year old female with complex medical history significant for ESRD on PD who presented for admission due to abdominal pain with PD. Labs did n ot show any concern for peritonitis. She screened positive for sepsis but did not have any identifiable source of infection. Imaging was unrevealing for source of pain. She did have some episodes of diarrhea as well, but Cdiff was negative and diarrhea improved during admission. She was able to tolerate PD on 01/19/19 evening and feels ready for discharge today. Other labs showed continued anemia of chronic disease and mildly low magnesium which was replaced with PO Magnesium. No home medications have been changed. She was given a flu shot prior to discharge to home. CONDITION AT DISCHARGE: Improved, Stable Discharge Medications Current Medications Ondansetron HCl (Zofran) 4 mg 1X ONCE IV Last administered on 01/17/19at 09:43; Start 01/17/19 at 09:15; Stop 01/17/19 at 09:16; Status DC Fentanyl Citrate (Fentanyl 2ml Vial) 50 mcg 1X ONCE IV Last administered on 01/17/19at 09:43; Start 01/17/19 at 09:30; Stop 01/17/19 at 09:32; Status DC Fentanyl Citrate (Fentanyl 2ml Vial) 100 mcg STK-MED ONCE .ROUTE ; Start 01/17/19 at 09:32; Stop 01/17/19 at 09:32; Status DC Magnesium Sulfate 50 ml @ 25 mls/hr 1X ONCE IV Last administered on 01/17/19at 11:07; Start 01/17/19 at 10:45; Stop 01/17/19 at 12:44; Status DC Ceftriaxone Sodium (Rocephin) 1 gm 1X ONCE IVP Last administered on 01/17/19at 12:10; Start 01/17/19 at 10:45; Stop 9/21/19 at 10:53; Status DC Vancomycin HCl 250 ml @ 250 mls/hr 1X ONCE IV Last administered on 01/17/19at 12:16; Start 01/17/19 at 10:45; Stop 01/17/19 at 11:44; Status DC Diltiazem HCl (Cardizem Iv Push) 15 mg 1X ONCE IVP Last administered on at 11:06; Start 01/17/19 at 10:45; Stop 01/17/19 at 10:53; Status DC Fentanyl Citrate (Fentanyl 2ml Vial) 50 mcg 1X ONCE IV Last administered on 01/17/19at 12:13; Start 01/17/19 at 12:15; Stop 01/17/19 at 12:16; Status DC Influenza Virus Vaccine Quadrival (Afluria Quad 2019-20 (3yr Up) Syringe) 0.5 ml ONCE ONCE VAX IM ; Start 01/17/19 at 16:15; Stop 01/17/19 at 16:16; Status UNV Acetaminophen/ Hydrocodone Bitart (Lortab 5/325) 1 tab PRN TID PRN PO PAIN Last administered on 01/19/19 09:53; Start 01/17/19 at 21:30; Stop 01/19/19 at 11:26; Status DC Cyclobenzaprine HCl (Flexeril) 10 mg PRN TID PRN PO MUSCLE SPASMS Last admini stered on 01/18/19at 11:48; Start 01/17/19 at 23:15; Stop 01/18/19 at 12:54; Status DC Atorvastatin Calcium (Lipitor) 40 mg HS PO Last administered on 01/19/19 22:02; Start 01/18/19 at 21:00 Clopidogrel Bisulfate (Plavix) 75 mg DAILY PO Last administered on 01/20/19 08:25; Start 01/18/19 at 12:00 Cyanocobalamin (Vitamin B-12) 2,500 mcg DAILY PO Last administered on 01/20/19 08:25; Start 01/18/19 at 12:00 Cyclobenzaprine HCl (Flexeril) 10 mg TID PO Last administered on 01/20/19 08:25; Start 01/18/19 at 14:00 Diltiazem HCl (Cardizem 24hr Cd) 240 mg DAILY PO Last administered on 01/20/19 08:25; Start 01/18/19 at 12:00 Albuterol/ Ipratropium (Duoneb) 3 ml RTQID NEB Last administered on 01/20/19 07:39; Start 01/18/19 at 12:00 Labetalol HCl (Trandate) 100 mg BID PO Last administered on 01/20/19 08:25; Start 01/18/19 at 12:00 Non-Formulary Medication (Ascorbate Calcium/ Bioflavonoid (Paz-C 1,000 Mg Tablet)) 1 each DAILY PO ; Start 01/19/19 at 09:00; Status UNV Calcium Acetate (Phoslo) 667 mg TIDWMEALS PO Last administered on 01/20/19 08:25; Start 01/18/19 at 12:00 Calcium Carbonate/ Glycine (Oscal) 500 mg DAILY PO Last administered on 01/20/19 08:25; Start 01/18/19 at 13:00 Vitamin D (Vitamin D3) 2,000 unit DAILY PO Last administered on 01/20/19 08:25; Start 01/18/19 at 12:00 Isosorbide Mononitrate (Imdur) 120 mg DAILY PO Last administered on 01/20/19 08:25; Start 01/18/19 at 12:00 Magnesium Oxide (Magnesium Oxide) 400 mg DAILY PO Last administered on 01/20/19 08:25; Start 01/18/19 at 12:00 Ondansetron HCl (Zofran Odt) 4 mg PRN Q6HRS PRN PO NAUSEA/VOMITING; Start 01/18/19 at 11:30 Ceftriaxone Sodium (Rocephin) 1 gm Q24H IVP Last administered on 01/19/19 18:26; Start 01/18/19 at 19:00 Lactobacillus Rhamnosus (Culturelle) 1 cap BID PO Last administered on 01/20/19 08:25; Start 01/19/19 at 21:00 Acetaminophen/ Hydrocodone Bitart (Lortab 10/325) 1 tab PRN Q6HRS PRN PO PAIN Last administered on 01/19/19 22:02; Start 01/19/19 at 11:30 Zolpidem Tartrate (Ambien) 5 mg PRN QHS PRN PO INSOMNIA Last administered on 01/19/19at 22:02; Start 01/19/19 at 11:30 Darbepoetin Lázaro (ARANESP for DIALYSIS PTS) 60 mcg WEEKLYHS SQ Last administered on 01/19/19at 22:02; Start 01/19/19 at 21:00 Influenza Virus Vaccine Quadrival (Afluria Quad 2019-20 (3yr Up) Syringe) 0.5 ml ONCE ONCE VAX IM ; Start 01/20/19 at 10:00; Stop 01/20/19 at 10:01 Active Scripts Active Zofran (Ondansetron Hcl) 4 Mg Tablet 1 Tab PO PRN Q6-8HRS Cyclobenzaprine Hcl 10 Mg Tablet 1 Tab PO TID Duoneb 0.5-3(2.5) Mg/3 Ml (Albuterol/Ipratropium) 3 Ml Ampul.neb 3 Ml NEB RTQID 30 Days Diltiazem 24Hr Cd (Diltiazem HCl) 240 Mg Cap.er.24h 240 Mg PO DAILY 30 Days Reported Calcium Acetate 667 Mg Tablet 667 Mg PO TIDWMEALS Labetalol Hcl 100 Mg Tablet 100 Mg PO BID Vitamin B-12 (Cyanocobalamin (Vitamin B-12)) 1,000 Mcg Tablet 2,500 Mcg PO DAILY Calcium (Calcium Carbonate) 600 Mg Tablet 600 Mg PO DAILY Magnesium (Magnesium Oxide) 400 Mg Capsule 1 Cap PO DAILY Hydrocodone-Apap 5-325 (Hydrocodone Bit/Acetaminophen) 1 Each Tablet 1 Tab PO PRN TID PRN Paz-C 1,000 Mg Tablet (Ascorbate Calcium/Bioflavonoid) 1 Each Tablet 1 Each PO DAILY Atorvastatin Calcium 40 Mg Tablet 40 Mg PO HS Vitamin D3 (Cholecalciferol (Vitamin D3)) 1,000 Unit Capsule 2,000 Unit PO DAILY Imdur (Isosorbide Mononitrate) 120 Mg Tab.er.24h 120 Mg PO DAILY Clopidogrel (Clopidogrel Bisulfate) 75 Mg Tablet 75 Mg PO DAILY Vital Signs Vital Signs Date Time Temp Pulse Resp B/P (MAP) Pulse Ox O2 Delivery O2 Flow Rate FiO2 01/20/19 08:25 91 119/58 01/20/19 07:39 90 Room Air 01/20/19 07:00 98.5 18 98.5 Labs Laboratory Tests Test 01/18/19 11:32 01/18/19 13:08 01/18/19 14:30 01/18/19 15:16 Glucose (Fingerstick) 86 mg/dL (70-99) Stool Occult Blood Negative (NEG) Magnesium Level 1.6 mg/dL (1.8-2.4) Clostridium difficile Toxin B Gene Negative (Negative) Test 01/19/19 08:20 01/19/19 11:05 01/20/19 03:35 Sodium Level 133 mmol/L (136-145) 136 mmol/L (136-145) Potassium Level 4.8 mmol/L (3.5-5.1) 3.4 mmol/L (3.5-5.1) Chloride Level 98 mmol/L (98-107) 98 mmol/L (98-107) Carbon Dioxide Level 20 mmol/L (21-32) 26 mmol/L (21-32) Anion Gap 15 (6-14) 12 (6-14) Blood Urea Nitrogen 52 mg/dL (7-20) 47 mg/dL (7-20) Creatinine 9.1 mg/dL (0.6-1.0) 8.2 mg/dL (0.6-1.0) Estimated GFR (Cockcroft-Gault) 4.3 4.8 Glucose Level 104 mg/dL (70-99) 140 mg/dL (70-99) Calcium Level 8.7 mg/dL (8.5-10.1) 9.3 mg/dL (8.5-10.1) White Blood Count 8.3 x10^3/uL (4.0-11.0) 8.0 x10^3/uL (4.0-11.0) Red Blood Count 2.33 x10^6/uL (3.50-5.40) 2.42 x10^6/uL (3.50-5.40) Hemoglobin 7.3 g/dL (12.0-15.5) 7.6 g/dL (12.0-15.5) Hematocrit 21.1 % (36.0-47.0) 21.9 % (36.0-47.0) Mean Corpuscular Volume 91 fL (79-100) 91 fL (79-100) Mean Corpuscular Hemoglobin 32 pg (25-35) 31 pg (25-35) Mean Corpuscular Hemoglobin Concent 35 g/dL (31-37) 35 g/dL (31-37) Red Cell Distribution Width 17.5 % (11.5-14.5) 17.6 % (11.5-14.5) Platelet Count 282 x10^3/uL (140-400) 275 x10^3/uL (140-400) Neutrophils (%) (Auto) 69 % (31-73) Lymphocytes (%) (Auto) 17 % (24-48) Monocytes (%) (Auto) 10 % (0-9) Eosinophils (%) (Auto) 3 % (0-3) Basophils (%) (Auto) 1 % (0-3) Neutrophils # (Auto) 5.8 x10^3/uL (1.8-7.7) Lymphocytes # (Auto) 1.4 x10^3/uL (1.0-4.8) Monocytes # (Auto) 0.8 x10^3/uL (0.0-1.1) Eosinophils # (Auto) 0.3 x10^3/uL (0.0-0.7) Basophils # (Auto) 0.1 x10^3/uL (0.0-0.2) Laboratory Tests Test 01/19/19 11:05 01/20/19 03:35 White Blood Count 8.3 x10^3/uL (4.0-11.0) 8.0 x10^3/uL (4.0-11.0) Red Blood Count 2.33 x10^6/uL (3.50-5.40) 2.42 x10^6/uL (3.50-5.40) Hemoglobin 7.3 g/dL (12.0-15.5) 7.6 g/dL (12.0-15.5) Hematocrit 21.1 % (36.0-47.0) 21.9 % (36.0-47.0) Mean Corpuscular Volume 91 fL (79-100) 91 fL (79-100) Mean Corpuscular Hemoglobin 32 pg (25-35) 31 pg (25-35) Mean Corpuscular Hemoglobin Concent 35 g/dL (31-37) 35 g/dL (31-37) Red Cell Distribution Width 17.5 % (11.5-14.5) 17.6 % (11.5-14.5) Platelet Count 282 x10^3/uL (140-400) 275 x10^3/uL (140-400) Neutrophils (%) (Auto) 69 % (31-73) Lymphocytes (%) (Auto) 17 % (24-48) Monocytes (%) (Auto) 10 % (0-9) Eosinophils (%) (Auto) 3 % (0-3) Basophils (%) (Auto) 1 % (0-3) Neutrophils # (Auto) 5.8 x10^3/uL (1.8-7.7) Lymphocytes # (Auto) 1.4 x10^3/uL (1.0-4.8) Monocytes # (Auto) 0.8 x10^3/uL (0.0-1.1) Eosinophils # (Auto) 0.3 x10^3/uL (0.0-0.7) Basophils # (Auto) 0.1 x10^3/uL (0.0-0.2) Sodium Level 136 mmol/L (136-145) Potassium Level 3.4 mmol/L (3.5-5.1) Chloride Level 98 mmol/L (98-107) Carbon Dioxide Level 26 mmol/L (21-32) Anion Gap 12 (6-14) Blood Urea Nitrogen 47 mg/dL (7-20) Creatinine 8.2 mg/dL (0.6-1.0) Estimated GFR (Cockcroft-Gault) 4.8 Glucose Level 140 mg/dL (70-99) Calcium Level 9.3 mg/dL (8.5-10.1) Allergies Allergies Coded Allergies Type Severity Reaction Last Updated Verified Penicillins Allergy Intermediate Hives 11/11/17 Yes bacitracin Allergy Intermediate 11/07/17 Yes erythromycin base Allergy Intermediate Hives 11/11/17 Yes neomycin Allergy Intermediate 11/07/17 Yes niacin Allergy Intermediate 11/07/17 Yes polymyxin B Allergy Intermediate 11/07/17 Yes Disposition/Orders: D/C to Home EDER CHAO MD Jan 20, 2019 09:07
[2019-01-20] MEDS ORDERED: FLU VAX QS 2019-20 (36MOS+)/PF 0.5 ML SYRINGE. VAX IM ONE (10:00)
[2019-01-20 11:00] VITALS: BP 111/53
--- NOTE | 2019-01-20 13:25 | PDOC ---
Renal-Progress Notes Subjective Notes Notes JUST TIRED OTHERWISE DOING WELL History of Present Illness Hx of present illness STABLE Vitals Vitals Vital Signs Date Time Temp Pulse Resp B/P (MAP) Pulse Ox O2 Delivery O2 Flow Rate FiO2 01/20/19 11:00 98.5 78 18 111/53 (72) 93 Room Air 98.5 Weight Weight [ ] I.O. Intake and Output Intake and Output 01/20/19 07:00 Intake Total 1520 ml Output Total 250 ml Balance 1270 ml Intake Oral 1520 ml Output Urine Total 250 ml # Voids 1 # Bowel Movements 3 Labs Labs Laboratory Tests Test 01/20/19 03:35 White Blood Count 8.0 x10^3/uL (4.0-11.0) Red Blood Count 2.42 x10^6/uL (3.50-5.40) Hemoglobin 7.6 g/dL (12.0-15.5) Hematocrit 21.9 % (36.0-47.0) Mean Corpuscular Volume 91 fL (79-100) Mean Corpuscular Hemoglobin 31 pg (25-35) Mean Corpuscular Hemoglobin Concent 35 g/dL (31-37) Red Cell Distribution Width 17.6 % (11.5-14.5) Platelet Count 275 x10^3/uL (140-400) Sodium Level 136 mmol/L (136-145) Potassium Level 3.4 mmol/L (3.5-5.1) Chloride Level 98 mmol/L (98-107) Carbon Dioxide Level 26 mmol/L (21-32) Anion Gap 12 (6-14) Blood Urea Nitrogen 47 mg/dL (7-20) Creatinine 8.2 mg/dL (0.6-1.0) Estimated GFR (Cockcroft-Gault) 4.8 Glucose Level 140 mg/dL (70-99) Calcium Level 9.3 mg/dL (8.5-10.1) Micro Micro Microbiology 01/17/19 Blood Culture - Preliminary, Resulted NO GROWTH AFTER 3 DAYS Review of Systems Constitutional: yes: alert, oriented Ears/Nose/Throat: Yes: no symptom reported Eyes: Yes: no symptom reported Pulmonary: Yes no symptom reported Cardiovascular: Yes no symptom reported Gastrointestional: Yes: abdominal pain Genitourinary: Yes: no symptom reported Musculoskeletal: Yes: no symptom reported Skin: Yes no symptom reported Psychiatric/Neurological: Yes: no symptom reported Endocrine: Yes: no symptom reported Physical Exam General Appearance: no apparent distress Skin: warm Respiratory: decreased breath sounds Heart: S1S2 Abdomen: soft, bowel sounds present Genitourinary: bladder flat Extremities: pulses present Neurology: alert Musculoskeletal: Osteoarthritis Assessment Assessment IMP DIARRHEA-RESOLVED ESRD - ON PD DECONDITIONING LOW MAG-WILL IMPROVE ANEMIA PLAN NO EVIDENCE OF PERITONITIS AND ABD EXAM IS BENIGN WILL HAVE APD-CYCLER TRIAL AGAIN THIS PM TOLERATED PD WELL LAST NIGHT D/C PLANS NOTED DONALD SARAH MD Jan 20, 2019 13:25
[2019-01-20 15:00] VITALS: BP 113/59
== END 2019-01-20 16:15 | disposition home or self-care (01) | DRG 871 ==
LOC: ER 08:48 → 1 WEST ICU 10:45 → 2 NORTH 01-18 09:41
PROVIDERS: ADMIT Family Medicine; ATTEND Family Medicine
PROC: 3E1M39Z Irrigation of Peritoneal Cavity using Dialysate, Percutaneous Approach (ICD-10-PCS; principal; 2019-01-17)
DX: A41.9 Sepsis, unspecified organism (principal); E43 Unspecified severe protein-calorie malnutrition; N18.6 End stage renal disease; I13.2 Hypertensive heart and chronic kidney disease with heart failure and with stage 5 chronic kidney disease, or end stage renal disease; I50.9 Heart failure, unspecified; I25.10 Atherosclerotic heart disease of native coronary artery without angina pectoris; J44.9 Chronic obstructive pulmonary disease, unspecified; E78.00 Pure hypercholesterolemia, unspecified; E83.42 Hypomagnesemia; M19.90 Unspecified osteoarthritis, unspecified site; E11.22 Type 2 diabetes mellitus with diabetic chronic kidney disease; I48.91 Unspecified atrial fibrillation; D63.8 Anemia in other chronic diseases classified elsewhere; E78.5 Hyperlipidemia, unspecified; I25.2 Old myocardial infarction; Z95.1 Presence of aortocoronary bypass graft; Z89.612 Acquired absence of left leg above knee; Z88.1 Allergy status to other antibiotic agents; Z88.8 Allergy status to other drugs, medicaments and biological substances; Z99.2 Dependence on renal dialysis; Z68.20 Body mass index [BMI] 20.0-20.9, adult; Z23 Encounter for immunization; R19.7 Diarrhea, unspecified
CPT/HCPCS: 36415; 71045; 74018; 74176; 80048; 80053; 82274; 82550; 82962; 83605; 83690; 83735; 84484; 85025; 85027; 85610; 87040; 87071; 87075; 87493; 89050; 90686; 93005; 94640; 94760; 96365; 96375; J0696; J0882; J2405; J3010; J3370; J3475; J3490; J7620; 99285-25; G0378

== ENCOUNTER 2019-02-06 15:48 | Inpatient (IN) | payer MEDICARE, OTHER ==
[~2019-02-06] VITALS: Ht 170.2 cm; Wt 63.5 kg
[~2019-02-06 15:48] MED LIST changes: +DILT240C33 PO; -DILT240C82 PO
[2019-02-06] MEDS ORDERED: MORPHINE SULFATE 2 MG/ML VIAL. IV/SQ PRN (16:00)
[2019-02-06 16:11] LABS: BASO # 0.2 x10^3/uL (0.0-0.2); BASO % 2 % (0-3); EOS # 0.3 x10^3/uL (0.0-0.7); EOS % 3 % (0-3); HEMATOCRIT 34.7 % (36.0-47.0); HEMOGLOBIN 12.2 g/dL (12.0-15.5); LYMPH # 1.7 x10^3/uL (1.0-4.8); LYMPH % 15 % (24-48); MEAN CORPUSCULAR HEMOGLOBIN 32 pg (25-35); MEAN CORPUSCULAR HGB CONC 35 g/dL (31-37); MEAN CORPUSCULAR VOLUME 90 fL (79-100); MONO # 0.8 x10^3/uL (0.0-1.1); MONO % 8 % (0-9); NEUT # 8.2 x10^3/uL (1.8-7.7); NEUT % 73 % (31-73); PLATELET COUNT 448 x10^3/uL (140-400); RED BLOOD COUNT 3.86 x10^6/uL (3.50-5.40); RED CELL DISTRIBUTION WIDTH 17.6 % (11.5-14.5); WHITE BLOOD COUNT 11.2 x10^3/uL (4.0-11.0)
[2019-02-06 16:22] LABS: CALCIUM 9.6 mg/dL (8.5-10.1); CREATININE 9.1 mg/dL (0.6-1.0); GFR 4.3; POTASSIUM 3.1 mmol/L (3.5-5.1)
--- NOTE | 2019-02-06 16:24 | PHYS DOC ---
Past Medical History Past Medical History: CAD, CHF, COPD, Diabetes-Type II, High Cholesterol, Heart Disease, Hypertension, NE, Renal Failure Additional Past Medical Histor: Carpal Tunnel Past Surgical History: Angioplasty, Coronary Bypass Surgery, Pacemaker, Other Additional Past Surgical Histo: LEFT AKA;r carpal tunne,STENTS [facility] PACEMAKER Alcohol Use: None Drug Use: None Adult General Chief Complaint Chief Complaint: CHEST PAIN HPI HPI 73-year-old female presents to the emergency department with complaints of chest pain. Patient was apparently at peritoneal dialysis today developed chest pain or pressure sensation in the center aspect of her chest, no radiation. She did describe nausea as well as vomiting. Patient states the pain is eased up, she received aspirin 324 mg per EMS. Nothing makes her symptoms worse, nothing makes her symptoms better. She denies any abdominal pain, headache or visual changes. Review of Systems Review of Systems Constitutional: Denies fever or chills [] Respiratory: Denies cough or shortness of breath [] Cardiovascular: No additional information not addressed in HPI [] GI: Denies abdominal pain, +nausea/vomiting, denies bloody stools or diarrhea [] : Denies dysuria or hematuria [] Musculoskeletal: Denies back pain or joint pain [] Neurologic: Denies headache, focal weakness or sensory changes [] All other systems were reviewed and found to be within normal limits, except as documented in this note. Current Medications Current Medications Current Medications Medications (Trade) Dose Ordered Sig/[facility] Start Time Stop Time Status Last Admin Dose Admin Acetaminophen (Tylenol) 650 mg PRN Q4HRS PRN 02/06/19 17:15 02/07/19 17:14 Heparin Sodium (Porcine) (Heparin Sodium) 1,700 unit PRN Q6HRS PRN 02/06/19 17:17 Heparin Sodium/ Dextrose 500 ml @ 14.496 mls/ hr CONT PRN 02/06/19 17:17 Magnesium Sulfate 50 ml @ 25 mls/hr 1X ONCE 02/06/19 16:45 02/06/19 18:44 02/06/19 17:04 25 MLS/HR Morphine Sulfate (Morphine Sulfate) 2 mg PRN Q15MIN PRN 02/06/19 16:00 02/07/19 15:59 Nitroglycerin (Nitrostat) 0.4 mg PRN Q5MIN PRN 02/06/19 17:15 02/07/19 17:14 Ondansetron HCl (Zofran) 4 mg PRN Q8HRS PRN 02/06/19 17:15 02/07/19 17:14 Potassium Chloride (Klor-Con) 40 meq 1X ONCE 02/06/19 16:45 02/06/19 16:48 DC 02/06/19 17:03 40 MEQ Allergies Allergies Allergies Coded Allergies Type Severity Reaction Last Updated Verified Penicillins Allergy Intermediate Hives 11/11/17 Yes bacitracin Allergy Intermediate 11/07/17 Yes erythromycin base Allergy Intermediate Hives 11/11/17 Yes neomycin Allergy Intermediate 11/07/17 Yes niacin Allergy Intermediate 11/07/17 Yes polymyxin B Allergy Intermediate 11/07/17 Yes Physical Exam Physical Exam Constitutional: Well developed, well nourished, no acute distress, non-toxic appearance. [] HENT: Normocephalic, atraumatic, bilateral external ears normal, oropharynx mois t, no oral exudates, nose normal. [] Eyes: PERRLA, EOMI, conjunctiva normal, no discharge. [] Cardiovascular:Heart rate regular rhythm, no murmur [] Lungs & Thorax: Bilateral breath sounds clear to auscultation [] Abdomen: Bowel sounds normal, soft, no tenderness, no masses, no pulsatile masses. [] Skin: Warm, dry, no erythema, no rash. [] Back: No tenderness, no CVA tenderness. [] Extremities: no edema. LBKA [] Neurologic: Alert and oriented X 3, no focal deficits noted. [] Psychologic: Affect normal, judgement normal, mood normal. [] Current Patient Data Vital Signs Vital Signs Date Time Temp Pulse Resp B/P (MAP) Pulse Ox O2 Delivery O2 Flow Rate FiO2 02/06/19 17:18 81 126/58 Lab Values Laboratory Tests Test 02/06/19 15:56 White Blood Count 11.2 x10^3/uL (4.0-11.0) H Red Blood Count 3.86 x10^6/uL (3.50-5.40) Hemoglobin 12.2 g/dL (12.0-15.5) Hematocrit 34.7 % (36.0-47.0) L Mean Corpuscular Volume 90 fL (79-100) Mean Corpuscular Hemoglobin 32 pg (25-35) Mean Corpuscular Hemoglobin Concent 35 g/dL (31-37) Red Cell Distribution Width 17.6 % (11.5-14.5) H Platelet Count 448 x10^3/uL (140-400) H Neutrophils (%) (Auto) 73 % (31-73) Lymphocytes (%) (Auto) 15 % (24-48) L Monocytes (%) (Auto) 8 % (0-9) Eosinophils (%) (Auto) 3 % (0-3) Basophils (%) (Auto) 2 % (0-3) Neutrophils # (Auto) 8.2 x10^3/uL (1.8-7.7) H Lymphocytes # (Auto) 1.7 x10^3/uL (1.0-4.8) Monocytes # (Auto) 0.8 x10^3/uL (0.0-1.1) Eosinophils # (Auto) 0.3 x10^3/uL (0.0-0.7) Basophils # (Auto) 0.2 x10^3/uL (0.0-0.2) Sodium Level 138 mmol/L (136-145) Potassium Level 3.1 mmol/L (3.5-5.1) L Chloride Level 95 mmol/L (98-107) L Carbon Dioxide Level 25 mmol/L (21-32) Anion Gap 18 (6-14) H Blood Urea Nitrogen 29 mg/dL (7-20) H Creatinine 9.1 mg/dL (0.6-1.0) H Estimated GFR (Cockcroft-Gault) 4.3 BUN/Creatinine Ratio 3 (6-20) L Glucose Level 201 mg/dL (70-99) H Calcium Level 9.6 mg/dL (8.5-10.1) Magnesium Level 1.7 mg/dL (1.8-2.4) L Total Bilirubin 0.5 mg/dL (0.2-1.0) Aspartate Amino Transferase (AST) 21 U/L (15-37) Alanine Aminotransferase (ALT) 11 U/L (14-59) L Alkaline Phosphatase 98 U/L (46-116) Troponin I Quantitative 0.063 ng/mL (0.000-0.055) Total Protein 6.4 g/dL (6.4-8.2) Albumin 2.9 g/dL (3.4-5.0) L Albumin/Globulin Ratio 0.8 (1.0-1.7) L Laboratory Tests 02/06/19 15:56 Laboratory Tests 02/06/19 15:56 EKG EKG EKG reviewed, heart rate 81, sinus rhythm with PVCs[] Interpretation Time: Time of interpretation 1623 Radiology/Procedures Radiology/Procedures [facility] [address] [place] [address] IMAGING REPORT Signed PATIENT: MARISA RIOJAS ACCOUNT: [id number] : 1945 LOCATION: ER AGE: 73 SEX: F EXAM STATUS: PRE ER ORD. PHYSICIAN: LEXX PUENTES MD REASON: chest pain PROCEDURE: PORTABLE CHEST 1V Single view of the chest. 02/06/2019 3:44 PM Indication: Chest pain Comparison: Chest radiograph January 17, 2019 Findings: Pacemaking device from left subclavian approach is grossly unchanged. Primary median sternotomy noted. No pneumothorax is seen. No pleural effusion is seen. No focal consolidative infiltrate is identified. Calcified granuloma in the left lung base is stable. Bony thorax is grossly unchanged. Degenerative changes of the shoulders noted. IMPRESSION: Grossly stable radiographic appearance of the chest without evidence of acute cardiopulmonary process Electronically signed by: Stefan Morillo MD (02/06/2019 4:43 PM) [id number] DICTATED and SIGNED BY: STEFAN MORILLO MD DATE: 02/06/19 325 [] Course & Med Decision Making Course & Med Decision Making Pertinent Labs and Imaging studies reviewed. (See chart for details) []73-year-old female presents to the emergency department with complaints of chest pain. Patient was apparently at peritoneal dialysis today developed chest pain or pressure sensation in the center aspect of her chest, no radiation. She did describe nausea as well as vomiting. Patient states the pain is eased up, she received aspirin 324 mg per EMS. Nothing makes her symptoms worse, nothing makes her symptoms better. She denies any abdominal pain, headache or visual changes. Labs/Imaging reviewed - trop 0.063, potassium 3.1, mag 1.7 CXR without evidence of acute process on exam - no effusion, no consolidation Heparin drip initiated in ER, Magnesium/Potassium replacement Discussed with PCP for admit Eb Disclaimer Eb Disclaimer This electronic medical record was generated, in whole or in part, using a voice recognition dictation system. Departure Departure Impression: Primary Impression: Chest pain Additional Impressions: Elevated troponin Peritoneal dialysis status Hypomagnesemia Hypokalemia Disposition: 09 ADMITTED INPATIENT Admitting Physician: Andrew Pritchard Condition: IMPROVED Referrals: EDER CHAO MD (PCP) The HEART Score for CP Pts HEART Score for Chest Pain: HEART Score for Chest Pain Response (Comments) Value History Moderately Suspicious 1 ECG Nonspecific Repolarizatio 1 Age > 65 2 Risk Factors >3 Risk Factors or Hx CAD 2 Troponin >1-<3x Normal Limit 1 Total 7 Risk Factors: Risk Factors: DM, Current or recent (<one month) smoker, HTN, HLP, family history of CAD, obesity. Risk Scores: Score 0 - 3: 2.5% MACE over next 6 weeks - Discharge Home Score 4 - 6: 20.3% MACE over next 6 weeks - Admit for Clinical Observation Score 7 - 10: 72.7% MACE over next 6 weeks - Early Invasive Strategies Problem Qualifiers Primary Impression: Chest pain Chest pain type: unspecified Qualified Codes: R07.9 - Chest pain, unspecified LEXX PUENTES MD Feb 06, 2019 16:24
[2019-02-06 16:27] LABS: ALBUMIN 2.9 g/dL (3.4-5.0); ALBUMIN/GLOBULIN RATIO 0.8 (1.0-1.7); MAGNESIUM 1.7 mg/dL (1.8-2.4); TOTAL BILIRUBIN 0.5 mg/dL (0.2-1.0); TOTAL PROTEIN 6.4 g/dL (6.4-8.2)
[2019-02-06] MEDS ORDERED: MAGNESIUM SULFATE 2GM 50 ML IV ONE (16:45)
[2019-02-06] MEDS ORDERED: POTASSIUM CHLORIDE 20 MEQ TABLET.ER. PO ONE (16:45)
--- NOTE | 2019-02-06 16:46 | RAD ---
Single view of the chest. 02/06/2019 3:44 PM Indication: Chest pain Comparison: Chest radiograph January 17, 2019 Findings: Pacemaking device from left subclavian approach is grossly unchanged. Primary median sternotomy noted. No pneumothorax is seen. No pleural effusion is seen. No focal consolidative infiltrate is identified. Calcified granuloma in the left lung base is stable. Bony thorax is grossly unchanged. Degenerative changes of the shoulders noted. IMPRESSION: Grossly stable radiographic appearance of the chest without evidence of acute cardiopulmonary process Electronically signed by: Stefan Lopez MD (02/06/2019 4:43 PM) [id number]
[2019-02-06] MEDS: NITROGLYCERIN SUBLINGUAL 0.4 MG BOTTLE OF 25. SL PRN ×2 (17:05→17:18)
[2019-02-06] MEDS ORDERED: ONDANSETRON PF 4 MG/2 ML VIAL. IV PRN (17:15)
[2019-02-06] MEDS ORDERED: ACETAMINOPHEN 325 MG TABLET. PO PRN (17:15)
[2019-02-06] MEDS ORDERED: NITROGLYCERIN SUBLINGUAL 0.4 MG BOTTLE OF 25. SL PRN (17:15)
[2019-02-06] MEDS ORDERED: HEPARIN for IV BOLUS 10,000 UNIT/10 ML VIAL. IV ONE (17:17)
[2019-02-06] MEDS ORDERED: HEPARIN for IV BOLUS 10,000 UNIT/10 ML VIAL. IV PRN (17:17)
[2019-02-06] MEDS: HEPARIN 25,000UTS/500ML PREMIX 500 ML IV PRN (18:52)
[2019-02-06 19:46] VITALS: BP 150/66
[2019-02-06] MEDS: CYCLOBENZAPRINE 10 MG TABLET. PO SCH (21:52)
[2019-02-06] MEDS: ATORVASTATIN CALCIUM 40 MG TABLET. PO SCH (21:52)
[2019-02-06] MEDS: LABETALOL HCL 100 MG TABLET. PO SCH (21:52)
[2019-02-06 22:12] VITALS: BP 156/68
[2019-02-06] MEDS: ZOLPIDEM 5 MG TABLET. PO PRN (23:38)
[2019-02-07 03:36] VITALS: BP 126/60
[2019-02-07 07:00] VITALS: BP 140/65
[2019-02-07] MEDS: IPRATRPIUM/ALBUTEROL 0.5/2.5MG 3 ML NEBU. NEB SCH ×4 (07:59→20:24)
[2019-02-07 09:05] LABS: BASO # 0.1 x10^3/uL (0.0-0.2); BASO % 1 % (0-3); EOS # 0.3 x10^3/uL (0.0-0.7); EOS % 3 % (0-3); HEMATOCRIT 30.3 % (36.0-47.0); HEMOGLOBIN 10.4 g/dL (12.0-15.5); LYMPH # 2.4 x10^3/uL (1.0-4.8); LYMPH % 19 % (24-48); MEAN CORPUSCULAR HEMOGLOBIN 31 pg (25-35); MEAN CORPUSCULAR HGB CONC 34 g/dL (31-37); MEAN CORPUSCULAR VOLUME 90 fL (79-100); MONO # 1.2 x10^3/uL (0.0-1.1); MONO % 9 % (0-9); NEUT # 8.8 x10^3/uL (1.8-7.7); NEUT % 68 % (31-73); PLATELET COUNT 361 x10^3/uL (140-400); RED BLOOD COUNT 3.36 x10^6/uL (3.50-5.40); RED CELL DISTRIBUTION WIDTH 17.9 % (11.5-14.5); WHITE BLOOD COUNT 12.8 x10^3/uL (4.0-11.0)
[2019-02-07] MEDS: ISOSORBIDE MONONITRATE ER 30 MG TAB.ER.24H PO SCH (09:15)
[2019-02-07] MEDS: CLOPIDOGREL BISULFATE 75 MG TABLET PO SCH (09:16)
[2019-02-07] MEDS: CYCLOBENZAPRINE 10 MG TABLET. PO SCH ×3 (09:16→22:19)
[2019-02-07] MEDS: LABETALOL HCL 100 MG TABLET. PO SCH ×2 (09:16→20:30)
[2019-02-07 09:21] LABS: ALBUMIN 2.6 g/dL (3.4-5.0); ALBUMIN/GLOBULIN RATIO 0.7 (1.0-1.7); CALCIUM 9.3 mg/dL (8.5-10.1); CREATININE 9.8 mg/dL (0.6-1.0); GFR 3.9; TOTAL BILIRUBIN 0.4 mg/dL (0.2-1.0); TOTAL PROTEIN 6.4 g/dL (6.4-8.2)
[2019-02-07 10:38] LABS: % BANDS 2 % (0-9); % EOS 2 % (0-5); % LYMPHS 13 % (24-48); % METAS 1 % (0-0); % MONOS 7 % (0-10); % MYELOS 2 % (0-0); % SEGS 73 % (35-66)
[2019-02-07 10:39] LABS: ANISOCYTOSIS SLIGHT; OVALOCYTES PRESENT; PLT ESTIMATE ADEQUATE (ADEQUATE); POIKILOCYTOSIS PRESENT
[2019-02-07 11:04] VITALS: BP 133/61
[2019-02-07] MEDS: CALCIUM ACETATE 667 MG CAPSULE PO SCH ×3 (12:00→18:05)
[2019-02-07] MEDS ORDERED: POTASSIUM CHLORIDE 20 MEQ TABLET.ER. PO ONE (12:15)
--- NOTE | 2019-02-07 12:38 | PDOC2 ---
CONSULT Date of Consult Date of Consult DATE: 02/07/19 TIME: 12:23 Reason for Consult Reason for Consult: ESRD on peritoneal dialysis Referring Physician Referring Physician: Linette Pritchard Identification/Chief Complaint Chief Complaint Chest pain Source Source: Chart review, Patient History of Present Illness Reason for Visit: Debbie is a pleasant 73-year-old female who is known to have significant coronary artery disease as well as ESRD and is on peritoneal dialysis under the care of Dr. Herbert. She claims she was laying in bed and developed sudden onset chest pressure like somebody was sitting on her chest. This has since resolved. She was seen at the outpatient dialysis unit for erythropoietin shot and complained of chest pain. She was sent from there to the hospital. When she arrived to the ER she was noted to be hypokalemic and hence dialysis was not initiated night. Potassium was replaced in the ER. She is currently chest pain-free. I discussed her care with cardiology and plan is to potentially take her for a heart cath procedure on Saturday. Past Medical History Cardiovascular: AFIB, CAD, CHF, HTN, Valve insufficiency, Other Pulmonary: COPD CENTRAL NERVOUS SYSTEM: Other GI: No pertinent hx Heme/Onc: Anemia NOS Musculoskeletal: Osteoarthritis Renal/: Chronic renal failure Endocrine: Diabetes Past Surgical History Past Surgical History: Other Family History Family History: Other Social History ALCOHOL: none Drugs: None Lives: with Family Domestic Violence: Neg Current Problem List Problem List Problems Medical Problems: (1) Chest pain Status: Acute (2) Elevated troponin Status: Acute (3) Hypokalemia Status: Acute (4) Hypomagnesemia Status: Acute (5) Peritoneal dialysis status Status: Acute Current Medications Current Medications Current Medications Nitroglycerin (Nitrostat) 0.4 mg PRN Q5MIN PRN SL CP RATING > 1/10 Last administered on 02/06/19at 17:18; Start 02/06/19 at 16:00; Stop 02/07/19 at 15:59 Morphine Sulfate (Morphine Sulfate) 2 mg PRN Q15MIN PRN IV/SQ PAIN GREATER THAN 3/10; Start 02/06/19 at 16:00; Stop 02/07/19 at 09:21; Status DC Potassium Chloride (Klor-Con) 40 meq 1X ONCE PO Last administered on 02/06/19at 17:03; Start 02/06/19 at 16:45; Stop 02/06/19 at 16:48; Status DC Magnesium Sulfate 50 ml @ 25 mls/hr 1X ONCE IV Last administered on 02/06/19at 17:04; Start 02/06/19 at 16:45; Stop 02/06/19 at 18:44; Status DC Ondansetron HCl (Zofran) 4 mg PRN Q8HRS PRN IV NAUSEA/VOMITING; Start 02/06/19 at 17:15; Stop 02/07/19 at 17:14 Acetaminophen (Tylenol) 650 mg PRN Q4HRS PRN PO FEVER; Start 02/06/19 at 17:15; Stop 02/07/19 at 17:14 Nitroglycerin (Nitrostat) 0.4 mg PRN Q5MIN PRN SL CHEST PAIN; Start 02/06/19 at 17:15; Stop 02/07/19 at 17:14 Heparin Sodium (Porcine) (Heparin Sodium) 4,000 unit 1X ONCE IV Last admi nistered on 02/06/19at 17:17; Start 02/06/19 at 17:17; Stop 02/06/19 at 17:22; Status DC Heparin Sodium/ Dextrose 500 ml @ 14.496 mls/ hr CONT PRN IV PER PROTOCOL Last administered on 02/06/19at 18:52; Start 02/06/19 at 17:17 Heparin Sodium (Porcine) (Heparin Sodium) 1,700 unit PRN Q6HRS PRN IV FOR UFH LEVEL LESS THAN 0.2; Start 02/06/19 at 17:17 Atorvastatin Calcium (Lipitor) 40 mg HS PO Last administered on 02/06/19at 21:52; Start 02/06/19 at 22:00 Clopidogrel Bisulfate (Plavix) 75 mg DAILY PO Last administered on 02/07/19at 09:16; Start 02/07/19 at 09:00 Cyanocobalamin (Vitamin B-12) 2,500 mcg DAILY PO ; Start 02/07/19 at 09:00 Cyclobenzaprine HCl (Flexeril) 10 mg TID PO Last administered on 02/07/19at 09:16; Start 02/06/19 at 22:00 Diltiazem HCl (Cardizem 24hr Cd) 240 mg DAILY PO Last administered on 02/07/19at 09:16; Start 02/07/19 at 09:00 Acetaminophen/ Hydrocodone Bitart (Lortab 5/325) 1 tab PRN TID PRN PO MODERATE PAIN 4-6; Start 02/06/19 at 21:15 Albuterol/ Ipratropium (Duoneb) 3 ml RTQID NEB Last administered on 02/07/19at 11:28; Start 02/07/19 at 08:00 Labetalol HCl (Trandate) 100 mg BID PO Last administered on 02/07/19at 09:16; Start 02/06/19 at 22:00 Ascorbic Acid (Vitamin C) 1,000 mg DAILY PO ; Start 02/07/19 at 09:00 Calcium Acetate (Phoslo) 667 mg TIDWMEALS PO ; Start 02/07/19 at 08:00 Calcium Carbonate/ Glycine (Oscal) 500 mg DAILY PO ; Start 02/07/19 at 09:00 Vitamin D (Vitamin D3) 2,000 unit DAILY PO ; Start 02/07/19 at 09:00 Isosorbide Mononitrate (Imdur) 120 mg DAILY PO Last administered on 02/07/19at 09:15; Start 02/07/19 at 09:00 Magnesium Oxide (Magnesium Oxide) 400 mg DAILY PO ; Start 02/07/19 at 09:00 Ondansetron HCl (Zofran Odt) 4 mg PRN Q8HRS PRN PO NAUSEA/VOMITING 1ST CHOICE; Start 02/06/19 at 21:15 Zolpidem Tartrate (Ambien) 5 mg PRN QHS PRN PO INSOMNIA Last administered on 02/06/19at 23:38; Start 02/06/19 at 22:00 Potassium Chloride (Klor-Con) 40 meq 1X ONCE PO ; Start 02/07/19 at 12:15; Stop 02/07/19 at 12:16; Status DC Active Scripts Active Zofran (Ondansetron Hcl) 4 Mg Tablet 1 Tab PO PRN Q6-8HRS Cyclobenzaprine Hcl 10 Mg Tablet 1 Tab PO TID Duoneb 0.5-3(2.5) Mg/3 Ml (Albuterol/Ipratropium) 3 Ml Ampul.neb 3 Ml NEB RTQID 30 Days Diltiazem 24Hr Cd (Diltiazem HCl) 240 Mg Cap.er.24h 240 Mg PO DAILY 30 Days Reported Calcium Acetate 667 Mg Tablet 667 Mg PO TIDWMEALS Labetalol Hcl 100 Mg Tablet 100 Mg PO BID Vitamin B-12 (Cyanocobalamin (Vitamin B-12)) 1,000 Mcg Tablet 2,500 Mcg PO DAILY Calcium (Calcium Carbonate) 600 Mg Tablet 600 Mg PO DAILY Magnesium (Magnesium Oxide) 400 Mg Capsule 1 Cap PO DAILY Hydrocodone-Apap 5-325 (Hydrocodone Bit/Acetaminophen) 1 Each Tablet 1 Tab PO PRN TID PRN Paz-C 1,000 Mg Tablet (Ascorbate Calcium/Bioflavonoid) 1 Each Tablet 1 Each PO DAILY Atorvastatin Calcium 40 Mg Tablet 40 Mg PO HS Vitamin D3 (Cholecalciferol (Vitamin D3)) 1,000 Unit Capsule 2,000 Unit PO DAILY Imdur (Isosorbide Mononitrate) 120 Mg Tab.er.24h 120 Mg PO DAILY Clopidogrel (Clopidogrel Bisulfate) 75 Mg Tablet 75 Mg PO DAILY Allergies Allergies: Coded Allergies: Penicillins (Verified Allergy, Intermediate, Hives, 11/11/17) itching bacitracin (Verified Allergy, Intermediate, 11/07/17) erythromycin base (Verified Allergy, Intermediate, Hives, 11/11/17) neomycin (Verified Allergy, Intermediate, 11/07/17) niacin (Verified Allergy, Intermediate, 11/07/17) polymyxin B (Verified Allergy, Intermediate, 11/07/17) ROS Review of System Review of systems negative other than as reviewed under history of present illness Physical Exam Physical Exam General Appearance: Awake Alert Oriented x 3 In no Distress Eyes: VIsion Unchanged Conjunctiva Normal EN: No EN Drainage Mucous Memb. moist Neck: no JVD no JVP Supple no Thyromegaly CVS: S1 S2 soft Murmur No Gallop No Rub no Edema Resp: no Rales no Rhonchi no Acc. 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 Heme: Unable to palpate Obvious LAD no palp Splenomegaly NEURO: Good Strength and Tone Cranial Nerves II - XII grossly intact Psych: not Depressed no Active hallucination Vital Signs Vital Signs Date Time Temp Pulse Resp B/P (MAP) Pulse Ox O2 Delivery O2 Flow Rate FiO2 02/07/19 11:29 96 02/07/19 11:04 98.3 80 18 133/61 (85) Room Air 98.3 Assessment & Plan ESRD.: Restart home regimen of peritoneal dialysis later david Mercer anemia: [place] potassium in her diet as well as potassium supplementation as ordered Anemia: We'll start Epogen once hemoglobin less than 10 Transfuse with next HD as needed. HTN: Current BP meds reviewed. See orders for changes. Bone & Mineral: Follow phosphorus levels and alter binder regimen as needed Discussed Plan of Care and prognosis etc. at length with family. Labs Labs Laboratory Tests Test 02/06/19 15:56 02/06/19 20:00 02/07/19 01:15 02/07/19 07:56 White Blood Count 11.2 x10^3/uL (4.0-11.0) Red Blood Count 3.86 x10^6/uL (3.50-5.40) Hemoglobin 12.2 g/dL (12.0-15.5) Hematocrit 34.7 % (36.0-47.0) Mean Corpuscular Volume 90 fL (79-100) Mean Corpuscular Hemoglobin 32 pg (25-35) Mean Corpuscular Hemoglobin Concent 35 g/dL (31-37) Red Cell Distribution Width 17.6 % (11.5-14.5) Platelet Count 448 x10^3/uL (140-400) Neutrophils (%) (Auto) 73 % (31-73) Lymphocytes (%) (Auto) 15 % (24-48) Monocytes (%) (Auto) 8 % (0-9) Eosinophils (%) (Auto) 3 % (0-3) Basophils (%) (Auto) 2 % (0-3) Neutrophils # (Auto) 8.2 x10^3/uL (1.8-7.7) Lymphocytes # (Auto) 1.7 x10^3/uL (1.0-4.8) Monocytes # (Auto) 0.8 x10^3/uL (0.0-1.1) Eosinophils # (Auto) 0.3 x10^3/uL (0.0-0.7) Basophils # (Auto) 0.2 x10^3/uL (0.0-0.2) Sodium Level 138 mmol/L (136-145) Potassium Level 3.1 mmol/L (3.5-5.1) Chloride Level 95 mmol/L (98-107) Carbon Dioxide Level 25 mmol/L (21-32) Anion Gap 18 (6-14) Blood Urea Nitrogen 29 mg/dL (7-20) Creatinine 9.1 mg/dL (0.6-1.0) Estimated GFR (Cockcroft-Gault) 4.3 BUN/Creatinine Ratio 3 (6-20) Glucose Level 201 mg/dL (70-99) Calcium Level 9.6 mg/dL (8.5-10.1) Magnesium Level 1.7 mg/dL (1.8-2.4) Total Bilirubin 0.5 mg/dL (0.2-1.0) Aspartate Amino Transf (AST/SGOT) 21 U/L (15-37) Alanine Aminotransferase (ALT/SGPT) 11 U/L (14-59) Alkaline Phosphatase 98 U/L (46-116) Troponin I Quantitative 0.063 ng/mL (0.000-0.055) 0.071 ng/mL (0.000-0.055) Total Protein 6.4 g/dL (6.4-8.2) Albumin 2.9 g/dL (3.4-5.0) Albumin/Globulin Ratio 0.8 (1.0-1.7) Heparin Anti-Xa Act, Unfractionated 0.57 IU/mL (0.30-0.70) Glucose (Fingerstick) 156 mg/dL (70-99) Test 02/07/19 08:05 02/07/19 08:08 02/07/19 11:42 White Blood Count 12.8 x10^3/uL (4.0-11.0) Red Blood Count 3.36 x10^6/uL (3.50-5.40) Hemoglobin 10.4 g/dL (12.0-15.5) Hematocrit 30.3 % (36.0-47.0) Mean Corpuscular Volume 90 fL (79-100) Mean Corpuscular Hemoglobin 31 pg (25-35) Mean Corpuscular Hemoglobin Concent 34 g/dL (31-37) Red Cell Distribution Width 17.9 % (11.5-14.5) Platelet Count 361 x10^3/uL (140-400) Neutrophils (%) (Auto) 68 % (31-73) Lymphocytes (%) (Auto) 19 % (24-48) Monocytes (%) (Auto) 9 % (0-9) Eosinophils (%) (Auto) 3 % (0-3) Basophils (%) (Auto) 1 % (0-3) Neutrophils # (Auto) 8.8 x10^3/uL (1.8-7.7) Lymphocytes # (Auto) 2.4 x10^3/uL (1.0-4.8) Monocytes # (Auto) 1.2 x10^3/uL (0.0-1.1) Eosinophils # (Auto) 0.3 x10^3/uL (0.0-0.7) Basophils # (Auto) 0.1 x10^3/uL (0.0-0.2) Segmented Neutrophils % 73 % (35-66) Band Neutrophils % 2 % (0-9) Lymphocytes % 13 % (24-48) Monocytes % 7 % (0-10) Eosinophils % 2 % (0-5) Metamyelocytes % 1 % (0-0) Myelocytes % 2 % (0-0) Platelet Estimate Adequate (ADEQUATE) Poikilocytosis Present Anisocytosis Slight Macrocytosis Present Ovalocytes Present Heparin Anti-Xa Act, Unfractionated 0.36 IU/mL (0.30-0.70) Magnesium Level 2.3 mg/dL (1.8-2.4) Sodium Level 136 mmol/L (136-145) Potassium Level 3.0 mmol/L (3.5-5.1) Chloride Level 96 mmol/L (98-107) Carbon Dioxide Level 22 mmol/L (21-32) Anion Gap 18 (6-14) Blood Urea Nitrogen 37 mg/dL (7-20) Creatinine 9.8 mg/dL (0.6-1.0) Estimated GFR (Cockcroft-Gault) 3.9 BUN/Creatinine Ratio 4 (6-20) Glucose Level 148 mg/dL (70-99) Calcium Level 9.3 mg/dL (8.5-10.1) Total Bilirubin 0.4 mg/dL (0.2-1.0) Aspartate Amino Transf (AST/SGOT) 12 U/L (15-37) Alanine Aminotransferase (ALT/SGPT) 9 U/L (14-59) Alkaline Phosphatase 83 U/L (46-116) Total Protein 6.4 g/dL (6.4-8.2) Albumin 2.6 g/dL (3.4-5.0) Albumin/Globulin Ratio 0.7 (1.0-1.7) Glucose (Fingerstick) 116 mg/dL (70-99) Laboratory Tests Test 02/06/19 15:56 02/06/19 20:00 02/07/19 01:15 02/07/19 07:56 White Blood Count 11.2 x10^3/uL (4.0-11.0) Red Blood Count 3.86 x10^6/uL (3.50-5.40) Hemoglobin 12.2 g/dL (12.0-15.5) Hematocrit 34.7 % (36.0-47.0) Mean Corpuscular Volume 90 fL (79-100) Mean Corpuscular Hemoglobin 32 pg (25-35) Mean Corpuscular Hemoglobin Concent 35 g/dL (31-37) Red Cell Distribution Width 17.6 % (11.5-14.5) Platelet Count 448 x10^3/uL (140-400) Neutrophils (%) (Auto) 73 % (31-73) Lymphocytes (%) (Auto) 15 % (24-48) Monocytes (%) (Auto) 8 % (0-9) Eosinophils (%) (Auto) 3 % (0-3) Basophils (%) (Auto) 2 % (0-3) Neutrophils # (Auto) 8.2 x10^3/uL (1.8-7.7) Lymphocytes # (Auto) 1.7 x10^3/uL (1.0-4.8) Monocytes # (Auto) 0.8 x10^3/uL (0.0-1.1) Eosinophils # (Auto) 0.3 x10^3/uL (0.0-0.7) Basophils # (Auto) 0.2 x10^3/uL (0.0-0.2) Sodium Level 138 mmol/L (136-145) Potassium Level 3.1 mmol/L (3.5-5.1) Chloride Level 95 mmol/L (98-107) Carbon Dioxide Level 25 mmol/L (21-32) Anion Gap 18 (6-14) Blood Urea Nitrogen 29 mg/dL (7-20) Creatinine 9.1 mg/dL (0.6-1.0) Estimated GFR (Cockcroft-Gault) 4.3 BUN/Creatinine Ratio 3 (6-20) Glucose Level 201 mg/dL (70-99) Calcium Level 9.6 mg/dL (8.5-10.1) Magnesium Level 1.7 mg/dL (1.8-2.4) Total Bilirubin 0.5 mg/dL (0.2-1.0) Aspartate Amino Transf (AST/SGOT) 21 U/L (15-37) Alanine Aminotransferase (ALT/SGPT) 11 U/L (14-59) Alkaline Phosphatase 98 U/L (46-116) Troponin I Quantitative 0.063 ng/mL (0.000-0.055) 0.071 ng/mL (0.000-0.055) Total Protein 6.4 g/dL (6.4-8.2) Albumin 2.9 g/dL (3.4-5.0) Albumin/Globulin Ratio 0.8 (1.0-1.7) Heparin Anti-Xa Act, Unfractionated 0.57 IU/mL (0.30-0.70) Glucose (Fingerstick) 156 mg/dL (70-99) Test 02/07/19 08:05 02/07/19 08:08 02/07/19 11:42 White Blood Count 12.8 x10^3/uL (4.0-11.0) Red Blood Count 3.36 x10^6/uL (3.50-5.40) Hemoglobin 10.4 g/dL (12.0-15.5) Hematocrit 30.3 % (36.0-47.0) Mean Corpuscular Volume 90 fL (79-100) Mean Corpuscular Hemoglobin 31 pg (25-35) Mean Corpuscular Hemoglobin Concent 34 g/dL (31-37) Red Cell Distribution Width 17.9 % (11.5-14.5) Platelet Count 361 x10^3/uL (140-400) Neutrophils (%) (Auto) 68 % (31-73) Lymphocytes (%) (Auto) 19 % (24-48) Monocytes (%) (Auto) 9 % (0-9) Eosinophils (%) (Auto) 3 % (0-3) Basophils (%) (Auto) 1 % (0-3) Neutrophils # (Auto) 8.8 x10^3/uL (1.8-7.7) Lymphocytes # (Auto) 2.4 x10^3/uL (1.0-4.8) Monocytes # (Auto) 1.2 x10^3/uL (0.0-1.1) Eosinophils # (Auto) 0.3 x10^3/uL (0.0-0.7) Basophils # (Auto) 0.1 x10^3/uL (0.0-0.2) Segmented Neutrophils % 73 % (35-66) Band Neutrophils % 2 % (0-9) Lymphocytes % 13 % (24-48) Monocytes % 7 % (0-10) Eosinophils % 2 % (0-5) Metamyelocytes % 1 % (0-0) Myelocytes % 2 % (0-0) Platelet Estimate Adequate (ADEQUATE) Poikilocytosis Present Anisocytosis Slight Macrocytosis Present Ovalocytes Present Heparin Anti-Xa Act, Unfractionated 0.36 IU/mL (0.30-0.70) Magnesium Level 2.3 mg/dL (1.8-2.4) Sodium Level 136 mmol/L (136-145) Potassium Level 3.0 mmol/L (3.5-5.1) Chloride Level 96 mmol/L (98-107) Carbon Dioxide Level 22 mmol/L (21-32) Anion Gap 18 (6-14) Blood Urea Nitrogen 37 mg/dL (7-20) Creatinine 9.8 mg/dL (0.6-1.0) Estimated GFR (Cockcroft-Gault) 3.9 BUN/Creatinine Ratio 4 (6-20) Glucose Level 148 mg/dL (70-99) Calcium Level 9.3 mg/dL (8.5-10.1) Total Bilirubin 0.4 mg/dL (0.2-1.0) Aspartate Amino Transf (AST/SGOT) 12 U/L (15-37) Alanine Aminotransferase (ALT/SGPT) 9 U/L (14-59) Alkaline Phosphatase 83 U/L (46-116) Total Protein 6.4 g/dL (6.4-8.2) Albumin 2.6 g/dL (3.4-5.0) Albumin/Globulin Ratio 0.7 (1.0-1.7) Glucose (Fingerstick) 116 mg/dL (70-99) Review All relevant outside records, renal labs, imaging studies, telemetry/EKG's were reviewed. Images Images Chest x-ray: IMPRESSION: Grossly stable radiographic appearance of the chest without evidence of acute cardiopulmonary process SONIA FRANKLIN MD Feb 07, 2019 12:38
[2019-02-07] MEDS: CALCIUM CARBONATE 500 MG TABLET PO SCH (12:53)
[2019-02-07] MEDS: CHOLECALCIFEROL (VITAMIN D3) 1,000 UNIT TABLET PO SCH (12:53)
[2019-02-07] MEDS: ASCORBIC ACID 500 MG TABLET PO SCH (12:53)
[2019-02-07] MEDS: CYANOCOBALAMIN (VITAMIN B-12) 1,000 MCG TABLET. PO SCH (12:53)
[2019-02-07] MEDS: MAGNESIUM OXIDE 400 MG TABLET PO SCH (12:53)
--- NOTE | 2019-02-07 13:03 | PDOC ---
Provider Note Provider Note dictated, describes L visual field loss and jaw claudication, will do esr re ? TA- last esr 38 04/15 CHRISTINA ROSENBAUM MD Feb 07, 2019 13:03
[2019-02-07 15:00] VITALS: BP 162/73
--- NOTE | 2019-02-07 16:35 | HP ---
ADMIT DATE: 02/06/2019 CHIEF COMPLAINT: Chest pain. HISTORY OF PRESENT ILLNESS: A ____[id number] white female with known coronary artery disease and prior left main stenting as well as end-stage renal disease, on peritoneal dialysis, was at the dialysis center getting some vaccinations and developed heavy pressure and her chest is very suspicious for angina. ER evaluation revealed no EKG changes. There was a minimal elevation of troponin, but cardiac doctors have seen her and planned on cardiac catheterization in 48 hours. The patient remains on heparin since that time and has had no further chest pain. Only other complaints are some left-sided visual field loss and pain in her bahai and jaw when she is chewing, but the eye doctor apparently did not know specific abnormalities of the eye. PAST MEDICAL HISTORY: Well documented in the old records, left main stenting about a year ago, for which she takes high dose nitrates, beta blockers as well as other meds and does peritoneal dialysis. SOCIAL HISTORY: Nonsmoker for some years. She is , lives with her son, nondrinker. FAMILY HISTORY: No other complaints. REVIEW OF SYSTEMS: No other complaints. OBJECTIVE: ENT: Left temporal artery is not particularly tender and large. Left TMJ maybe a little tender. Otherwise, unremarkable. NECK: No nodes, bruits or masses. LUNGS: Clear. CARDIOVASCULAR: Regular rate. No murmur. ABDOMEN: Soft, benign and nontender. EXTREMITIES: She has a left [id number] amputation and right leg shows decreased pedal pulses. No active joint or skin lesions. NEUROLOGIC: Physiologic, nonfocal. ASSESSMENT: 1. Chest pain suspicious for unstable angina with only minimal elevation of troponin to this point. She has known existing coronary artery disease and certainly high risk factors for recurrence. 2. Jaw claudication and visual field loss, raised the question of temporal arteritis versus temporomandibular joint. 3. End-stage renal disease, on peritoneal dialysis. PLAN: Sed rate and further evaluation as indicated. CHRISTINA ROSENBAUM MD DR: AVNI/concetta JOB#: [id number] / [id number]
[2019-02-07 19:25] VITALS: BP 203/80
[2019-02-07] MEDS: ATORVASTATIN CALCIUM 40 MG TABLET. PO SCH (20:30)
[2019-02-07] MEDS: POTASSIUM CHLORIDE 20 MEQ TABLET.ER. PO PRN (20:30)
[2019-02-07] MEDS: HEPARIN 25,000UTS/500ML PREMIX 500 ML IV PRN (20:33)
[2019-02-07] MEDS ORDERED: INSULIN LISPRO 300 UNITS/3 ML VIAL. SQ ONE (21:15)
[2019-02-07 22:50] VITALS: BP 176/74
--- NOTE | 2019-02-07 23:23 | PDOC2 ---
CARDIOLOGY CONSULT NOTE CHEIF COMPLAINT: Chest pressure HPI: 73 y.o woman with pmhx as noted below presenting with chest pain concerning for unstable angina symptoms. She reports no recent changes to her health. Overall, tolerating PD. No syncope, palpitations, orthopnea or pND. No other recent CV interventions. PMHX: 1. CAD s/p CABG - 2. HTN 3. DLP 4. SSS s/p dual chamber pacer. SOCHX: No alcohol, tob or illicits FAMHX: NC CURRENT MEDS: Current Medications Medications (Trade) Dose Ordered Sig/Shilo Route PRN Reason Start Time Stop Time Status Last Admin Dose Admin Clopidogrel Bisulfate (Plavix) 75 mg DAILY PO 02/07/19 09:00 02/07/19 09:16 Cyanocobalamin (Vitamin B-12) 2,500 mcg DAILY PO 02/07/19 09:00 02/07/19 12:53 Diltiazem HCl (Cardizem 24hr Cd) 240 mg DAILY PO 02/07/19 09:00 02/07/19 09:16 Albuterol/ Ipratropium (Duoneb) 3 ml RTQID NEB 02/07/19 08:00 02/07/19 20:24 Ascorbic Acid (Vitamin C) 1,000 mg DAILY PO 02/07/19 09:00 02/07/19 12:53 Calcium Acetate (Phoslo) 667 mg TIDWMEALS PO 02/07/19 08:00 02/07/19 18:05 Calcium Carbonate/ Glycine (Oscal) 500 mg DAILY PO 02/07/19 09:00 02/07/19 12:53 Vitamin D (Vitamin D3) 2,000 unit DAILY PO 02/07/19 09:00 02/07/19 12:53 Isosorbide Mononitrate (Imdur) 120 mg DAILY PO 02/07/19 09:00 02/07/19 09:15 Magnesium Oxide (Magnesium Oxide) 400 mg DAILY PO 02/07/19 09:00 02/07/19 12:53 Potassium Chloride (Klor-Con) 40 meq 1X ONCE PO 02/07/19 12:15 02/07/19 12:16 DC 02/07/19 12:52 Potassium Chloride (Klor-Con) 40 meq PRN Q6HRS PRN PO if potassium is less than 4 02/07/19 13:30 02/07/19 20:30 Insulin Human Lispro (HumaLOG) 15 units 1X ONCE SQ 02/07/19 21:15 02/07/19 21:16 DC 02/07/19 22:25 ALLERGIES: Allergies Coded Allergies Type Severity Reaction Last Updated Verified Penicillins Allergy Intermediate Hives 11/11/17 Yes bacitracin Allergy Intermediate 11/07/17 Yes erythromycin base Allergy Intermediate Hives 11/11/17 Yes neomycin Allergy Intermediate 11/07/17 Yes niacin Allergy Intermediate 11/07/17 Yes polymyxin B Allergy Intermediate 11/07/17 Yes ROS: Negative unless otherwise noted above in HPI PHYSICAL EXAM: Vital Signs/I&O: Vital Signs Date Time Temp Pulse Resp B/P (MAP) Pulse Ox O2 Delivery O2 Flow Rate FiO2 02/07/19 20:30 79 203/80 02/07/19 20:25 95 02/07/19 20:00 Room Air 02/07/19 19:25 97.9 18 97.9 I & O 02/06/19 02/06/19 02/07/19 14:59 22:59 06:59 Intake Total 290 ml 446 ml Output Total 25 ml Balance 290 ml 421 ml Physical Exam: GEN.: No apparent distress. Alert and oriented. HEENT: Head is normocephalic, atraumatic NECK: Supple. LUNGS: Clear to auscultation. HEART: RRR, S1, S2 present. Peripheral pulses intact ABDOMEN: Soft, nontender. Positive bowel sounds. EXTREMITIES: Without any cyanosis. NEUROLOGIC: Normal speech, normal tone PSYCHIATRIC: Normal affect, normal mood. SKIN: No ulcerations DIAGNOSTIC TESTING: Trop + EKG unremarkable. Labs reviewed Cath in 2017: PCI to LCx, GUTIERREZ to LAD patent. Echo in 2018: EF 55% with severe AI. Lab Laboratory Tests Test 02/07/19 01:15 02/07/19 07:56 02/07/19 08:05 02/07/19 08:08 Heparin Anti-Xa Act, Unfractionated 0.57 IU/mL (0.30-0.70) 0.36 IU/mL (0.30-0.70) Glucose (Fingerstick) 156 mg/dL (70-99) H White Blood Count 12.8 x10^3/uL (4.0-11.0) H Red Blood Count 3.36 x10^6/uL (3.50-5.40) L Hemoglobin 10.4 g/dL (12.0-15.5) L Hematocrit 30.3 % (36.0-47.0) L Mean Corpuscular Volume 90 fL (79-100) Mean Corpuscular Hemoglobin 31 pg (25-35) Mean Corpuscular Hemoglobin Concent 34 g/dL (31-37) Red Cell Distribution Width 17.9 % (11.5-14.5) H Platelet Count 361 x10^3/uL (140-400) Neutrophils (%) (Auto) 68 % (31-73) Lymphocytes (%) (Auto) 19 % (24-48) L Monocytes (%) (Auto) 9 % (0-9) Eosinophils (%) (Auto) 3 % (0-3) Basophils (%) (Auto) 1 % (0-3) Neutrophils # (Auto) 8.8 x10^3/uL (1.8-7.7) H Lymphocytes # (Auto) 2.4 x10^3/uL (1.0-4.8) Monocytes # (Auto) 1.2 x10^3/uL (0.0-1.1) H Eosinophils # (Auto) 0.3 x10^3/uL (0.0-0.7) Basophils # (Auto) 0.1 x10^3/uL (0.0-0.2) Segmented Neutrophils % 73 % (35-66) H Band Neutrophils % 2 % (0-9) Lymphocytes % 13 % (24-48) L Monocytes % 7 % (0-10) Eosinophils % 2 % (0-5) Metamyelocytes % 1 % (0-0) H Myelocytes % 2 % (0-0) H Platelet Estimate Adequate (ADEQUATE) Poikilocytosis Present Anisocytosis Slight Macrocytosis Present Ovalocytes Present Sodium Level 136 mmol/L (136-145) Potassium Level 3.0 mmol/L (3.5-5.1) L Chloride Level 96 mmol/L (98-107) L Carbon Dioxide Level 22 mmol/L (21-32) Anion Gap 18 (6-14) H Blood Urea Nitrogen 37 mg/dL (7-20) H Creatinine 9.8 mg/dL (0.6-1.0) H Estimated GFR (Cockcroft-Gault) 3.9 BUN/Creatinine Ratio 4 (6-20) L Glucose Level 148 mg/dL (70-99) H Calcium Level 9.3 mg/dL (8.5-10.1) Total Bilirubin 0.4 mg/dL (0.2-1.0) Aspartate Amino Transf (AST/SGOT) 12 U/L (15-37) L Alkaline Phosphatase 83 U/L (46-116) Total Protein 6.4 g/dL (6.4-8.2) Albumin 2.6 g/dL (3.4-5.0) L Albumin/Globulin Ratio 0.7 (1.0-1.7) L Test 02/07/19 11:42 02/07/19 15:00 02/07/19 17:18 02/07/19 19:15 Glucose (Fingerstick) 116 mg/dL (70-99) H 212 mg/dL (70-99) H Erythrocyte Sedimentation Rate 60 (0-25) H Heparin Anti-Xa Act, Unfractionated 0.23 IU/mL (0.30-0.70) L Potassium Level 3.5 mmol/L (3.5-5.1) Test 02/07/19 20:41 Glucose (Fingerstick) 148 mg/dL (70-99) H Laboratory Tests 02/07/19 08:05 02/07/19 08:08 02/07/19 19:15 ASSESSMENT: 1. Chest pain with possible anginal features 2. Severe AI 3. CAD s/p cABG, last cath in 2016 PLAN: 1. I had a discussion with the patient about further evaluation. I suspect her troponin elevation is likely related to labile BP's but cannot rule out true NSTEMI. -For now, continue heparin gtt, plavix, statin, diltiazem . Tenative plan for cath on saturday. Check limited echo JOSLYN SRIVASTAVA MD Feb 07, 2019 23:23
--- NOTE | 2019-02-08 00:52 | NUR ---
Patient has repeatedly taken off her monitor throughout the shift. Explained to patient reason why she is being closely monitored, responded angrily " I am fine, I do not want it! " At this time , refusing to allow us to monitor. Will try again, shortly.
[2019-02-08] MEDS: POTASSIUM CHLORIDE 20 MEQ TABLET.ER. PO PRN ×2 (01:38→07:01)
[2019-02-08 03:05] VITALS: BP 165/72
[2019-02-08 07:00] VITALS: BP 150/65
[2019-02-08] MEDS: ISOSORBIDE MONONITRATE ER 30 MG TAB.ER.24H PO SCH (08:48)
[2019-02-08] MEDS: CALCIUM ACETATE 667 MG CAPSULE PO SCH ×3 (08:48→17:59)
[2019-02-08] MEDS: CYANOCOBALAMIN (VITAMIN B-12) 1,000 MCG TABLET. PO SCH (08:48)
[2019-02-08] MEDS: CLOPIDOGREL BISULFATE 75 MG TABLET PO SCH (08:49)
[2019-02-08] MEDS: CYCLOBENZAPRINE 10 MG TABLET. PO SCH ×3 (08:49→20:42)
[2019-02-08] MEDS: CALCIUM CARBONATE 500 MG TABLET PO SCH (08:49)
[2019-02-08] MEDS: LABETALOL HCL 100 MG TABLET. PO SCH ×2 (08:49→20:42)
[2019-02-08] MEDS: ASCORBIC ACID 500 MG TABLET PO SCH (08:50)
[2019-02-08] MEDS: CHOLECALCIFEROL (VITAMIN D3) 1,000 UNIT TABLET PO SCH (08:50)
[2019-02-08] MEDS: MAGNESIUM OXIDE 400 MG TABLET PO SCH (08:50)
[2019-02-08] MEDS: IPRATRPIUM/ALBUTEROL 0.5/2.5MG 3 ML NEBU. NEB SCH ×4 (09:07→20:07)
--- NOTE | 2019-02-08 10:19 | PDOC ---
Provider Note Provider Note no more chest pain , still has pain below L eye while chewing- L TMJ not tender w. jaw motion, esr 60, raising question of temporal arteritis- but need for biopsy precluded by anticoag need- will consult surgeon re timing of bx as dont want to use high dose steroids unless clearly needed CHRISTINA ROSENBAUM MD Feb 08, 2019 10:18
[2019-02-08 11:06] VITALS: BP 167/70
--- NOTE | 2019-02-08 11:18 | PDOC ---
CARDIOLOGY PROGRESS NOTE SUBJECTIVE: Last night, patient had confusion and would not keep telemetry leads on her This morning while talking with her she had a strange reaction where she was confused and thought that she was holding a cigarette. She also intermittently dosing off during our conversation. Denies any further chest pain. OBJECTIVE: Vital Signs/I&O: Vital Signs Date Time Temp Pulse Resp B/P (MAP) Pulse Ox O2 Delivery O2 Flow Rate FiO2 02/08/19 11:06 98.0 81 18 167/70 (102) 98 Room Air 98.0 I & O 02/07/19 02/07/19 02/08/19 14:59 22:59 06:59 Intake Total 240 ml 240 ml 320 ml Output Total 200 ml Balance 240 ml 40 ml 320 ml Objective: RLE w/o edema. Normal heart tones. Lungs with decreased breath sounds bilaterally. Soft abd. Mentation is labile, possible MARQUIS and daytime somnolence No significant jaw tenderness or point tenderness of the temples CURRENT MEDICATIONS: asa, statin, plavix. diltiazem, imdur DIAGNOSTIC TESTING: Labs reviewed. ESR elevated. ASSESSMENT: 1. NSTEMI - Possible Type 2 versus CAD. Currently I am more concerned that this is a Type 2 NSTEMI, rather than true coronary disease as she described yesterday. 2. Very labile BP in a HD patient. 3. Possible temporal arteritis PLAN: 1. Will check one more troponin, if no significant increase, then stop hep gtt 2. Continue other BP meds and will add hydralazine to help better control BP 3. Continue evaluation by primary team for confusion/mental status changes. 4. Await limited echo. Initially planned for cath on saturday, but no urgency at this time. She would be at low risk for any surgical intervention including temporal artery biopsy. Thanks. JOSLYN SRIVASTAVA MD Feb 08, 2019 11:18
--- NOTE | 2019-02-08 11:36 | EKG ---
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
--- NOTE | 2019-02-08 13:51 | PDOC ---
Dialysis Progress Note Dialysis Note Dialysis Note Patient underwent peritoneal dialysis earlier today without any problems. Reportedly had issues with confusion overnight. Was reportedly hallucinating also General Appearance: Awake: Alert Oriented x 2 Neck: No JVD or JVP Chest: CTA Ricky Heart: S1 S2 Abdomen - Soft NTND Extremities - No Edema ESRD: Continue peritoneal dialysis per home regimen Vitals Vital Signs Vital Signs Date Time Temp Pulse Resp B/P (MAP) Pulse Ox O2 Delivery O2 Flow Rate FiO2 02/08/19 12:57 Room Air 02/08/19 12:36 85 02/08/19 11:06 98.0 18 167/70 (102) 98 98.0 Labs Last Labs Laboratory Tests Test 02/06/19 15:56 02/06/19 20:00 02/07/19 01:15 02/07/19 07:56 White Blood Count 11.2 x10^3/uL (4.0-11.0) Red Blood Count 3.86 x10^6/uL (3.50-5.40) Hemoglobin 12.2 g/dL (12.0-15.5) Hematocrit 34.7 % (36.0-47.0) Mean Corpuscular Volume 90 fL (79-100) Mean Corpuscular Hemoglobin 32 pg (25-35) Mean Corpuscular Hemoglobin Concent 35 g/dL (31-37) Red Cell Distribution Width 17.6 % (11.5-14.5) Platelet Count 448 x10^3/uL (140-400) Neutrophils (%) (Auto) 73 % (31-73) Lymphocytes (%) (Auto) 15 % (24-48) Monocytes (%) (Auto) 8 % (0-9) Eosinophils (%) (Auto) 3 % (0-3) Basophils (%) (Auto) 2 % (0-3) Neutrophils # (Auto) 8.2 x10^3/uL (1.8-7.7) Lymphocytes # (Auto) 1.7 x10^3/uL (1.0-4.8) Monocytes # (Auto) 0.8 x10^3/uL (0.0-1.1) Eosinophils # (Auto) 0.3 x10^3/uL (0.0-0.7) Basophils # (Auto) 0.2 x10^3/uL (0.0-0.2) Sodium Level 138 mmol/L (136-145) Potassium Level 3.1 mmol/L (3.5-5.1) Chloride Level 95 mmol/L (98-107) Carbon Dioxide Level 25 mmol/L (21-32) Anion Gap 18 (6-14) Blood Urea Nitrogen 29 mg/dL (7-20) Creatinine 9.1 mg/dL (0.6-1.0) Estimated GFR (Cockcroft-Gault) 4.3 BUN/Creatinine Ratio 3 (6-20) Glucose Level 201 mg/dL (70-99) Calcium Level 9.6 mg/dL (8.5-10.1) Magnesium Level 1.7 mg/dL (1.8-2.4) Total Bilirubin 0.5 mg/dL (0.2-1.0) Aspartate Amino Transf (AST/SGOT) 21 U/L (15-37) Alanine Aminotransferase (ALT/SGPT) 11 U/L (14-59) Alkaline Phosphatase 98 U/L (46-116) Troponin I Quantitative 0.063 ng/mL (0.000-0.055) 0.071 ng/mL (0.000-0.055) Total Protein 6.4 g/dL (6.4-8.2) Albumin 2.9 g/dL (3.4-5.0) Albumin/Globulin Ratio 0.8 (1.0-1.7) Heparin Anti-Xa Act, Unfractionated 0.57 IU/mL (0.30-0.70) Glucose (Fingerstick) 156 mg/dL (70-99) Test 02/07/19 08:05 02/07/19 08:08 02/07/19 11:42 02/07/19 15:00 White Blood Count 12.8 x10^3/uL (4.0-11.0) Red Blood Count 3.36 x10^6/uL (3.50-5.40) Hemoglobin 10.4 g/dL (12.0-15.5) Hematocrit 30.3 % (36.0-47.0) Mean Corpuscular Volume 90 fL (79-100) Mean Corpuscular Hemoglobin 31 pg (25-35) Mean Corpuscular Hemoglobin Concent 34 g/dL (31-37) Red Cell Distribution Width 17.9 % (11.5-14.5) Platelet Count 361 x10^3/uL (140-400) Neutrophils (%) (Auto) 68 % (31-73) Lymphocytes (%) (Auto) 19 % (24-48) Monocytes (%) (Auto) 9 % (0-9) Eosinophils (%) (Auto) 3 % (0-3) Basophils (%) (Auto) 1 % (0-3) Neutrophils # (Auto) 8.8 x10^3/uL (1.8-7.7) Lymphocytes # (Auto) 2.4 x10^3/uL (1.0-4.8) Monocytes # (Auto) 1.2 x10^3/uL (0.0-1.1) Eosinophils # (Auto) 0.3 x10^3/uL (0.0-0.7) Basophils # (Auto) 0.1 x10^3/uL (0.0-0.2) Segmented Neutrophils % 73 % (35-66) Band Neutrophils % 2 % (0-9) Lymphocytes % 13 % (24-48) Monocytes % 7 % (0-10) Eosinophils % 2 % (0-5) Metamyelocytes % 1 % (0-0) Myelocytes % 2 % (0-0) Platelet Estimate Adequate (ADEQUATE) Poikilocytosis Present Anisocytosis Slight Macrocytosis Present Ovalocytes Present Heparin Anti-Xa Act, Unfractionated 0.36 IU/mL (0.30-0.70) 0.23 IU/mL (0.30-0.70) Magnesium Level 2.3 mg/dL (1.8-2.4) Sodium Level 136 mmol/L (136-145) Potassium Level 3.0 mmol/L (3.5-5.1) Chloride Level 96 mmol/L (98-107) Carbon Dioxide Level 22 mmol/L (21-32) Anion Gap 18 (6-14) Blood Urea Nitrogen 37 mg/dL (7-20) Creatinine 9.8 mg/dL (0.6-1.0) Estimated GFR (Cockcroft-Gault) 3.9 BUN/Creatinine Ratio 4 (6-20) Glucose Level 148 mg/dL (70-99) Calcium Level 9.3 mg/dL (8.5-10.1) Total Bilirubin 0.4 mg/dL (0.2-1.0) Aspartate Amino Transf (AST/SGOT) 12 U/L (15-37) Alanine Aminotransferase (ALT/SGPT) 9 U/L (14-59) Alkaline Phosphatase 83 U/L (46-116) Total Protein 6.4 g/dL (6.4-8.2) Albumin 2.6 g/dL (3.4-5.0) Albumin/Globulin Ratio 0.7 (1.0-1.7) Glucose (Fingerstick) 116 mg/dL (70-99) Erythrocyte Sedimentation Rate 60 (0-25) Test 02/07/19 17:18 02/07/19 19:15 02/07/19 20:41 02/08/19 00:20 Glucose (Fingerstick) 212 mg/dL (70-99) 148 mg/dL (70-99) Potassium Level 3.5 mmol/L (3.5-5.1) 3.2 mmol/L (3.5-5.1) Test 02/08/19 06:00 02/08/19 07:43 02/08/19 11:49 02/08/19 12:15 Heparin Anti-Xa Act, Unfractionated 0.23 IU/mL (0.30-0.70) Potassium Level 3.9 mmol/L (3.5-5.1) 5.1 mmol/L (3.5-5.1) Glucose (Fingerstick) 121 mg/dL (70-99) 185 mg/dL (70-99) Troponin I Quantitative 0.038 ng/mL (0.000-0.055) Laboratory Tests Test 02/07/19 15:00 02/07/19 17:18 02/07/19 19:15 02/07/19 20:41 Erythrocyte Sedimentation Rate 60 (0-25) Heparin Anti-Xa Act, Unfractionated 0.23 IU/mL (0.30-0.70) Glucose (Fingerstick) 212 mg/dL (70-99) 148 mg/dL (70-99) Potassium Level 3.5 mmol/L (3.5-5.1) Test 02/08/19 00:20 02/08/19 06:00 02/08/19 07:43 02/08/19 11:49 Potassium Level 3.2 mmol/L (3.5-5.1) 3.9 mmol/L (3.5-5.1) Heparin Anti-Xa Act, Unfractionated 0.23 IU/mL (0.30-0.70) Glucose (Fingerstick) 121 mg/dL (70-99) 185 mg/dL (70-99) Test 02/08/19 12:15 Potassium Level 5.1 mmol/L (3.5-5.1) Troponin I Quantitative 0.038 ng/mL (0.000-0.055) Assessment Assessment Problems Medical Problems: (1) Chest pain Status: Acute (2) Elevated troponin Status: Acute (3) Hypokalemia Status: Acute (4) Hypomagnesemia Status: Acute (5) Peritoneal dialysis status Status: Acute Plan Plan of Care Problems Medical Problems: (1) Chest pain Status: Acute (2) Elevated troponin Status: Acute (3) Hypokalemia Status: Acute (4) Hypomagnesemia Status: Acute (5) Peritoneal dialysis status Status: Acute SONIA FRANKLIN MD Feb 08, 2019 13:51
[2019-02-08 15:11] VITALS: BP 159/71
[2019-02-08 18:23] LABS: BF SOURCE PERIT DIALYSATE
[2019-02-08 18:24] LABS: BF CLARITY CLEAR; BF COLOR COLORLESS; BF RBC COUNT 0 /cmm (Not Established); BF WBC COUNT 0 /cmm (Not Established)
[2019-02-08 19:20] VITALS: BP 173/72
[2019-02-08] MEDS: ATORVASTATIN CALCIUM 40 MG TABLET. PO SCH (20:42)
[2019-02-08 23:00] VITALS: BP 196/86
[2019-02-08] MEDS: ONDANSETRON ODT 4 MG TAB.RAPDIS. PO PRN (23:11)
[2019-02-08] MEDS: hydrALAZINE 20 MG/ML VIAL. IVP PRN (23:13)
[2019-02-09 01:07] LABS: HEMOGLOBIN A1C 5.1 % (4.8-5.6)
[2019-02-09] MEDS: HYDROcodone/APAP 5/325MG 1 TAB TABLET PO PRN ×2 (01:52→22:59)
[2019-02-09] MEDS ORDERED: FAMOTIDINE 20 MG/2 ML VIAL IVP ONE (02:00)
[2019-02-09 02:50] VITALS: BP 162/87
[2019-02-09 07:00] VITALS: BP 155/67
[2019-02-09] MEDS: IPRATRPIUM/ALBUTEROL 0.5/2.5MG 3 ML NEBU. NEB SCH ×4 (08:12→19:27)
--- NOTE | 2019-02-09 08:46 | PDOC ---
Provider Note Provider Note vss, awake, knows date/location/prsident/state- no focal signs, moves all extrems,still c/o L jaw claudication and L sided MORRIS- labs all ok but high esr- will dc flexeril as possible drug /anticholinergic confusion, add trial dose prednisone in advance of temporal artery biopsy, hold plavix re same- she requests dnr so ordered CHRISTINA ROSENBAUM MD Feb 09, 2019 08:46
[2019-02-09 10:31] VITALS: BP 176/81
--- NOTE | 2019-02-09 10:55 | PDOC2 ---
CONSULT Date of Consult Date of Consult DATE: 02/09/19 TIME: 10:51 Reason for Consult Reason for Consult: Temporal artery biopsy Referring Physician Referring Physician: Macho Identification/Chief Complaint Chief Complaint Left-sided jaw pain and headache Source Source: Patient History of Present Illness Reason for Visit: 73-year-old female with coronary artery disease and end-stage renal disease was hospitalized with chest pain concerning for angina to be evaluated by cardiology. She has been having for the last month left-sided jaw pain as well as headaches she also describes some visual disturbance of the left side. Past Medical History Cardiovascular: AFIB, CAD, CHF, HTN, Valve insufficiency, Other Pulmonary: COPD CENTRAL NERVOUS SYSTEM: Other GI: No pertinent hx Heme/Onc: Anemia NOS Musculoskeletal: Osteoarthritis Renal/: Chronic renal failure Endocrine: Diabetes Past Surgical History Past Surgical History: Other Family History Family History: Other Social History ALCOHOL: none Drugs: None Lives: with Family Domestic Violence: Neg Current Problem List Problem List Problems Medical Problems: (1) Chest pain Status: Acute (2) Elevated troponin Status: Acute (3) Hypokalemia Status: Acute (4) Hypomagnesemia Status: Acute (5) Peritoneal dialysis status Status: Acute Current Medications Current Medications Current Medications Nitroglycerin (Nitrostat) 0.4 mg PRN Q5MIN PRN SL CP RATING > 1/10 Last administered on 02/06/19at 17:18; Start 02/06/19 at 16:00; Stop 02/07/19 at 15:59; Status DC Morphine Sulfate (Morphine Sulfate) 2 mg PRN Q15MIN PRN IV/SQ PAIN GREATER THAN 3/10; Start 02/06/19 at 16:00; Stop 02/07/19 at 09:21; Status DC Potassium Chloride (Klor-Con) 40 meq 1X ONCE PO Last administered on 02/06/19at 17:03; Start 02/06/19 at 16:45; Stop 02/06/19 at 16:48; Status DC Magnesium Sulfate 50 ml @ 25 mls/hr 1X ONCE IV Last administered on 02/06/19at 17:04; Start 02/06/19 at 16:45; Stop 02/06/19 at 18:44; Status DC Ondansetron HCl (Zofran) 4 mg PRN Q8HRS PRN IV NAUSEA/VOMITING; Start 02/06/19 at 17:15; Stop 02/07/19 at 17:14; Status DC Acetaminophen (Tylenol) 650 mg PRN Q4HRS PRN PO FEVER; Start 02/06/19 at 17:15; Stop 02/07/19 at 17:14; Status DC Nitroglycerin (Nitrostat) 0.4 mg PRN Q5MIN PRN SL CHEST PAIN; Start 02/06/19 a t 17:15; Stop 02/07/19 at 17:14; Status DC Heparin Sodium (Porcine) (Heparin Sodium) 4,000 unit 1X ONCE IV Last administered on 02/06/19at 17:17; Start 02/06/19 at 17:17; Stop 02/06/19 at 17:22; Status DC Heparin Sodium/ Dextrose 500 ml @ 14.496 mls/ hr CONT PRN IV PER PROTOCOL Last administered on 02/07/19at 20:33; Start 02/06/19 at 17:17; Stop 02/08/19 at 20:17; Status DC Heparin Sodium (Porcine) (Heparin Sodium) 1,700 unit PRN Q6HRS PRN IV FOR UFH LEVEL LESS THAN 0.2; Start 02/06/19 at 17:17; Stop 02/08/19 at 20:17; Status DC Atorvastatin Calcium (Lipitor) 40 mg HS PO Last administered on 02/08/19at 20:42; Start 02/06/19 at 22:00 Clopidogrel Bisulfate (Plavix) 75 mg DAILY PO Last administered on 02/08/19at 08:49; Start 02/07/19 at 09:00; Stop 02/09/19 at 08:26; Status DC Cyanocobalamin (Vitamin B-12) 2,500 mcg DAILY PO Last administered on 02/08/19at 08:48; Start 02/07/19 at 09:00 Cyclobenzaprine HCl (Flexeril) 10 mg TID PO Last administered on 02/08/19at 20:42; Start 02/06/19 at 22:00; Stop 02/09/19 at 08:49; Status DC Diltiazem HCl (Cardizem 24hr Cd) 240 mg DAILY PO Last administered on 02/08/19at 08:50; Start 02/07/19 at 09:00 Acetaminophen/ Hydrocodone Bitart (Lortab 5/325) 1 tab PRN TID PRN PO MODERATE PAIN 4-6 Last administered on 02/09/19 01:52; Start 02/06/19 at 21:15 Albuterol/ Ipratropium (Duoneb) 3 ml RTQID NEB Last administered on 02/09/19 08:12; Start 02/07/19 at 08:00 Labetalol HCl (Trandate) 100 mg BID PO Last administered on 02/08/19 20:42; Start 02/06/19 at 22:00 Ascorbic Acid (Vitamin C) 1,000 mg DAILY PO Last administered on 02/08/19 08:50; Start 02/07/19 at 09:00 Calcium Acetate (Phoslo) 667 mg TIDWMEALS PO Last administered on 02/08/19 17:59; Start 02/07/19 at 08:00 Calcium Carbonate/ Glycine (Oscal) 500 mg DAILY PO Last administered on 02/08/19 08:49; Start 02/07/19 at 09:00 Vitamin D (Vitamin D3) 2,000 unit DAILY PO Last administered on 02/08/19 08:50; Start 02/07/19 at 09:00 Isosorbide Mononitrate (Imdur) 120 mg DAILY PO Last administered on 02/08/19 08:48; Start 02/07/19 at 09:00 Magnesium Oxide (Magnesium Oxide) 400 mg DAILY PO Last administered on 02/08/19 08:50; Start 02/07/19 at 09:00 Ondansetron HCl (Zofran Odt) 4 mg PRN Q8HRS PRN PO NAUSEA/VOMITING 1ST CHOICE Last administered on 02/08/19 23:11; Start 02/06/19 at 21:15 Zolpidem Tartrate (Ambien) 5 mg PRN QHS PRN PO INSOMNIA Last administered on 02/06/19 23:38; Start 02/06/19 at 22:00 Potassium Chloride (Klor-Con) 40 meq 1X ONCE PO Last administered on 02/07 12:52; Start 02/07/19 at 12:15; Stop 02/07/19 at 12:16; Status DC Potassium Chloride (Klor-Con) 40 meq PRN Q6HRS PRN PO if potassium is less than 4 Last administered on 02/08/19at 07:01; Start 02/07/19 at 13:30; Stop 02/09/19 at 08:26; Status DC Insulin Human Lispro (HumaLOG) 15 units 1X ONCE SQ Last administered on 02/07/19at 22:25; Start 02/07/19 at 21:15; Stop 02/07/19 at 21:16; Status DC Hydralazine HCl (Apresoline) 50 mg BID PO Last administered on 02/08/19at 20:42; Start 02/08/19 at 11:30 Hydralazine HCl (Apresoline Inj) 10 mg PRN Q4HRS PRN IVP ELEVATED BP, SEE COMMENTS Last administered on 02/08/19at 23:13; Start 02/08/19 at 11:15 Famotidine (Pepcid Vial) 40 mg 1X ONCE IVP Last administered on 02/09/19at 01:38; Start 02/09/19 at 02:00; Stop 02/09/19 at 02:01; Status DC Famotidine (Pepcid) 20 mg QODAY PO ; Start 02/10/19 at 09:00 Prednisone (Prednisone) 60 mg DAILY08 ONCE PO ; Start 02/09/19 at 12:00; Stop 02/09/19 at 12:01 Active Scripts Active Zofran (Ondansetron Hcl) 4 Mg Tablet 1 Tab PO PRN Q6-8HRS Cyclobenzaprine Hcl 10 Mg Tablet 1 Tab PO TID Duoneb 0.5-3(2.5) Mg/3 Ml (Albuterol/Ipratropium) 3 Ml Ampul.neb 3 Ml NEB RTQID 30 Days Diltiazem 24Hr Cd (Diltiazem HCl) 240 Mg Cap.er.24h 240 Mg PO DAILY 30 Days Reported Calcium Acetate 667 Mg Tablet 667 Mg PO TIDWMEALS Labetalol Hcl 100 Mg Tablet 100 Mg PO BID Vitamin B-12 (Cyanocobalamin (Vitamin B-12)) 1,000 Mcg Tablet 2,500 Mcg PO DAILY Calcium (Calcium Carbonate) 600 Mg Tablet 600 Mg PO DAILY Magnesium (Magnesium Oxide) 400 Mg Capsule 1 Cap PO DAILY Hydrocodone-Apap 5-325 (Hydrocodone Bit/Acetaminophen) 1 Each Tablet 1 Tab PO PRN TID PRN Paz-C 1,000 Mg Tablet (Ascorbate Calcium/Bioflavonoid) 1 Each Tablet 1 Each PO DAILY Atorvastatin Calcium 40 Mg Tablet 40 Mg PO HS Vitamin D3 (Cholecalciferol (Vitamin D3)) 1,000 Unit Capsule 2,000 Unit PO DAILY Imdur (Isosorbide Mononitrate) 120 Mg Tab.er.24h 120 Mg PO DAILY Clopidogrel (Clopidogrel Bisulfate) 75 Mg Tablet 75 Mg PO DAILY Allergies Allergies: Coded Allergies: Penicillins (Verified Allergy, Intermediate, Hives, 11/11/17) itching bacitracin (Verified Allergy, Intermediate, 11/07/17) erythromycin base (Verified Allergy, Intermediate, Hives, 11/11/17) neomycin (Verified Allergy, Intermediate, 11/07/17) niacin (Verified Allergy, Intermediate, 11/07/17) polymyxin B (Verified Allergy, Intermediate, 11/07/17) ROS Eyes: Yes Blurry vision HEENT: YES: Heacaches, Visual Changes, Other (jaw pain) Physical Exam General: Alert, Oriented X3, Cooperative, mild distress HEENT: Atraumatic Lungs: Clear to auscultation, Normal air movement Heart: No murmurs Abdomen: Normal bowel sounds, Soft, No tenderness Extremities: No edema Skin: No significant lesion Neuro: Normal speech Psych/Mental Status: Mental status NL Vitals VITALS Vital Signs Date Time Temp Pulse Resp B/P (MAP) Pulse Ox O2 Delivery O2 Flow Rate FiO2 02/09/19 10:31 98.5 92 18 176/81 (112) 93 Room Air 98.5 Labs Labs Laboratory Tests Test 02/07/19 11:42 02/07/19 15:00 02/07/19 17:18 02/07/19 19:15 Glucose (Fingerstick) 116 mg/dL (70-99) 212 mg/dL (70-99) Erythrocyte Sedimentation Rate 60 (0-25) Heparin Anti-Xa Act, Unfractionated 0.23 IU/mL (0.30-0.70) Potassium Level 3.5 mmol/L (3.5-5.1) Test 02/07/19 20:41 02/08/19 00:20 02/08/19 06:00 02/08/19 07:43 Glucose (Fingerstick) 148 mg/dL (70-99) 121 mg/dL (70-99) Potassium Level 3.2 mmol/L (3.5-5.1) 3.9 mmol/L (3.5-5.1) Heparin Anti-Xa Act, Unfractionated 0.23 IU/mL (0.30-0.70) Hemoglobin A1c 5.1 % (4.8-5.6) Test 02/08/19 11:49 02/08/19 12:15 02/08/19 14:50 02/08/19 17:10 Glucose (Fingerstick) 185 mg/dL (70-99) Potassium Level 5.1 mmol/L (3.5-5.1) Troponin I Quantitative 0.038 ng/mL (0.000-0.055) Heparin Anti-Xa Act, Unfractionated < 0.10 IU/mL (0.30-0.70) Body Fluid Source Perit dialysate Body Fluid Color Colorless Body Fluid Clarity Clear Body Fluid Nucleated Cells 0 /cmm (Not Established) Body Fluid Total RBCs Counted 0 /cmm (Not Established) Test 02/08/19 17:33 02/08/19 18:15 02/08/19 20:38 02/09/19 03:10 Glucose (Fingerstick) 185 mg/dL (70-99) 193 mg/dL (70-99) Potassium Level 4.5 mmol/L (3.5-5.1) 4.0 mmol/L (3.5-5.1) Test 02/09/19 07:16 Glucose (Fingerstick) 141 mg/dL (70-99) Laboratory Tests Test 02/08/19 11:49 02/08/19 12:15 02/08/19 14:50 02/08/19 17:10 Glucose (Fingerstick) 185 mg/dL (70-99) Potassium Level 5.1 mmol/L (3.5-5.1) Troponin I Quantitative 0.038 ng/mL (0.000-0.055) Heparin Anti-Xa Act, Unfractionated < 0.10 IU/mL (0.30-0.70) Body Fluid Source Perit dialysate Body Fluid Color Colorless Body Fluid Clarity Clear Body Fluid Nucleated Cells 0 /cmm (Not Established) Body Fluid Total RBCs Counted 0 /cmm (Not Established) Test 02/08/19 17:33 02/08/19 18:15 02/08/19 20:38 02/09/19 03:10 Glucose (Fingerstick) 185 mg/dL (70-99) 193 mg/dL (70-99) Potassium Level 4.5 mmol/L (3.5-5.1) 4.0 mmol/L (3.5-5.1) Test 02/09/19 07:16 Glucose (Fingerstick) 141 mg/dL (70-99) Assessment/Plan Assessment/Plan Headaches with visual disturbances left jaw pain plan for temporal artery biopsy. Initially was planned for cardiac catheter today talking a cardiology it sounds as though this is either been postponed or no longer needed. Tarun scheduled for temporal artery biopsy February 10 BRIAN BEARD MD Feb 09, 2019 10:55
--- NOTE | 2019-02-09 11:24 | CARD ---
MR#: [id number] Date of Study: 02/08/2019 Ordering Physician: JOSLYN SRIVASTAVA, Referring Physician: JOSLYN SRIVASTAVA, Tech: Arielle Manley APPROVED REPORT EXAM: Two-dimensional and M-mode echocardiogram with Doppler and color Doppler. Other Information Quality : AverageHR: 100bpm Rhythm : Pacemaker INDICATION COPD Dyspnea Atrial Fibrillation CAD Chest Pain Syncope Congestive Heart Failure Non STEMI Surgery/Intervention Pacemaker: RISK FACTORS Hypertension Hyperlipidemia Diabetes 2D DIMENSIONS Left Atrium(2D)3.8 (1.6-4.0cm)IVSd1.6 (0.7-1.1cm) Aortic Root(2D)2.8 (2.0-3.7cm)LVDd5.1 (3.9-5.9cm) PWd1.2 (0.7-1.1cm)LVDs3.1 (2.5-4.0cm) FS (%) 38.6 %SV84.0 ml LEFT VENTRICLE Limited study. The left ventricle is normal size. There is mild to moderate concentric left ventricul ar hypertrophy. The left ventricular systolic function is normal and the ejection fraction is within normal range. The Ejection Fraction is 50-55%. Wall motion consistent with probable pacemaker. Diasto logy not performed. RIGHT VENTRICLE The right ventricle is normal size. The right ventricle is borderline hypertrophied. The right ventri cular systolic function is normal. ATRIA The left atrium is borderline dilated. The right atrium size is normal. The interatrial septum is int act with no evidence for an atrial septal defect or patent foramen ovale as noted on 2-D or Doppler i jonnathan. AORTIC VALVE The aortic valve is thickened but opens well. Doppler and color-flow analysis was not performed. MITRAL VALVE The mitral valve is thickened but opens well. There is no evidence of mitral valve prolapse. There is no mitral valve stenosis. Doppler and color-flow analysis was not performed. TRICUSPID VALVE The tricuspid valve is not well visualized. Doppler and color-flow analysis was not performed. PULMONIC VALVE The pulmonic valve is not well visualized. Doppler and color-flow analysis was performed. GREAT VESSELS The aortic root is normal in size. The IVC is normal in size and collapses >50% with inspiration. PERICARDIAL EFFUSION There is a trace pericardial effusion with no hemodynamic significance. Critical Notification Critical Value: No <Conclusion> Limited study. The left ventricle is normal size. The left ventricular systolic function is normal and the ejection fraction is within normal range. The Ejection Fraction is 50-55%. Wall motion consistent with probable pacemaker. There is mild to moderate concentric left ventricular hypertrophy. The aortic valve is thickened but opens well. There is no mitral valve stenosis. Signed by : Gatito Mane MD Electronically Approved : 02/09/2019 09:21:54
[2019-02-09] MEDS: ASCORBIC ACID 500 MG TABLET PO SCH (11:38)
[2019-02-09] MEDS: CHOLECALCIFEROL (VITAMIN D3) 1,000 UNIT TABLET PO SCH (11:38)
[2019-02-09] MEDS: CALCIUM CARBONATE 500 MG TABLET PO SCH (11:38)
[2019-02-09] MEDS: CALCIUM ACETATE 667 MG CAPSULE PO SCH ×3 (11:38→17:41)
[2019-02-09] MEDS: LABETALOL HCL 100 MG TABLET. PO SCH ×2 (11:39→21:03)
[2019-02-09] MEDS: MAGNESIUM OXIDE 400 MG TABLET PO SCH (11:39)
[2019-02-09] MEDS: ISOSORBIDE MONONITRATE ER 30 MG TAB.ER.24H PO SCH (11:39)
[2019-02-09] MEDS: CYANOCOBALAMIN (VITAMIN B-12) 1,000 MCG TABLET. PO SCH (11:39)
--- NOTE | 2019-02-09 11:40 | PDOC ---
SUBJECTIVE ROS Stable, sleeping comfortably OBJECTIVE Vital Signs Vital Signs Date Time Temp Pulse Resp B/P (MAP) Pulse Ox O2 Delivery O2 Flow Rate FiO2 02/09/19 10:31 98.5 92 18 176/81 (112) 93 Room Air 98.5 I & 0 Intake and Output 02/09/19 07:00 Intake Total 880 ml Balance 880 ml Intake Oral 880 ml # Voids 1 # Bowel Movements 3 PHYSICAL EXAM Physical Exam GEN.: No apparent distress. HEENT: Head is normocephalic, atraumatic, OM moist NECK: Supple. LUNGS: Clear to auscultation. HEART: RRR, S1, S2 present. ABDOMEN: Soft, nontender. PD catheter +, No signs of infection EXTREMITIES: No edema NEUROLOGIC: Grossly normal SKIN: No rash DIAGNOSIS/ASSESSMENT Assessment & Plan ESRD. home regimen of peritoneal dialysis Anemia: Epogen once hemoglobin less than 10 Transfuse with next HD as needed. HTN managed by Cardiology Bone & Mineral: Follow phosphorus levels and alter binder regimen as needed Headaches with visual disturbances left jaw pain - plan for temporal artery biopsy on 02/10 NSTEMI - Possible Type 2 versus CAD COMMENT/RELEVANT DATA Meds Current Medications Medications (Trade) Dose Ordered Sig/Shilo Start Time Stop Time Status Last Admin Dose Admin Acetaminophen (Tylenol) 650 mg PRN Q4HRS PRN 02/06/19 17:15 02/07/19 17:14 DC Acetaminophen/ Hydrocodone Bitart (Lortab 5/325) 1 tab PRN TID PRN 02/06/19 21:15 02/09/19 01:52 1 TAB Albuterol/ Ipratropium (Duoneb) 3 ml RTQID 02/07/19 08:00 02/09/19 08:12 3 ML Ascorbic Acid (Vitamin C) 1,000 mg DAILY 02/07/19 09:00 02/08/19 08:50 1,000 MG Atorvastatin Calcium (Lipitor) 40 mg HS 02/06/19 22:00 02/08/19 20:42 40 MG Calcium Acetate (Phoslo) 667 mg TIDWMEALS 02/07/19 08:00 02/08/19 17:59 667 MG Calcium Carbonate/ Glycine (Oscal) 500 mg DAILY 02/07/19 09:00 02/08/19 08:49 500 MG Clopidogrel Bisulfate (Plavix) 75 mg DAILY 02/07/19 09:00 02/09/19 08:26 DC 02/08/19 08:49 75 MG Cyanocobalamin (Vitamin B-12) 2,500 mcg DAILY 02/07/19 09:00 02/08/19 08:48 2,500 MCG Cyclobenzaprine HCl (Flexeril) 10 mg TID 02/06/19 22:00 02/09/19 08:49 DC 02/08/19 20:42 10 MG Diltiazem HCl (Cardizem 24hr Cd) 240 mg DAILY 02/07/19 09:00 02/08/19 08:50 240 MG Famotidine (Pepcid Vial) 40 mg 1X ONCE 02/09/19 02:00 02/09/19 02:01 DC 02/09/19 01:38 20 MG Famotidine (Pepcid) 20 mg QODAY 02/10/19 09:00 Heparin Sodium (Porcine) (Heparin Sodium) 1,700 unit PRN Q6HRS PRN 02/06/19 17:17 02/08/19 20:17 DC Heparin Sodium/ Dextrose 500 ml @ 14.496 mls/ hr CONT PRN 02/06/19 17:17 02/08/19 20:17 DC 02/07/19 20:33 14.496 MLS/HR Hydralazine HCl (Apresoline Inj) 10 mg PRN Q4HRS PRN 02/08/19 11:15 02/08/19 23:13 10 MG Hydralazine HCl (Apresoline) 50 mg BID 02/08/19 11:30 02/08/19 20:42 50 MG Insulin Human Lispro (HumaLOG) 15 units 1X ONCE 02/07/19 21:15 02/07/19 21:16 DC 02/07/19 22:25 15 UNITS Isosorbide Mononitrate (Imdur) 120 mg DAILY 02/07/19 09:00 02/08/19 08:48 120 MG Labetalol HCl (Trandate) 100 mg BID 02/06/19 22:00 02/08/19 20:42 100 MG Magnesium Oxide (Magnesium Oxide) 400 mg DAILY 02/07/19 09:00 02/08/19 08:50 400 MG Magnesium Sulfate 50 ml @ 25 mls/hr 1X ONCE 02/06/19 16:45 02/06/19 18:44 DC 02/06/19 17:04 25 MLS/HR Morphine Sulfate (Morphine Sulfate) 2 mg PRN Q15MIN PRN 02/06/19 16:00 02/07/19 09:21 DC Nitroglycerin (Nitrostat) 0.4 mg PRN Q5MIN PRN 02/06/19 17:15 02/07/19 17:14 DC Ondansetron HCl (Zofran Odt) 4 mg PRN Q8HRS PRN 02/06/19 21:15 02/08/19 23:11 4 MG Ondansetron HCl (Zofran) 4 mg PRN Q8HRS PRN 02/06/19 17:15 02/07/19 17:14 DC Potassium Chloride (Klor-Con) 40 meq PRN Q6HRS PRN 02/07/19 13:30 02/09/19 08:26 DC 02/08/19 07:01 40 MEQ Prednisone (Prednisone) 60 mg DAILY08 ONCE 02/09/19 12:00 02/09/19 12:01 Vitamin D (Vitamin D3) 2,000 unit DAILY 02/07/19 09:00 02/08/19 08:50 2,000 UNIT Zolpidem Tartrate (Ambien) 5 mg PRN QHS PRN 02/06/19 22:00 02/06/19 23:38 5 MG Lab Laboratory Tests Test 02/08/19 11:49 02/08/19 12:15 02/08/19 14:50 02/08/19 17:10 Glucose (Fingerstick) 185 mg/dL (70-99) Potassium Level 5.1 mmol/L (3.5-5.1) Troponin I Quantitative 0.038 ng/mL (0.000-0.055) Heparin Anti-Xa Act, Unfractionated < 0.10 IU/mL (0.30-0.70) Body Fluid Source Perit dialysate Body Fluid Color Colorless Body Fluid Clarity Clear Body Fluid Nucleated Cells 0 /cmm (Not Established) Body Fluid Total RBCs Counted 0 /cmm (Not Established) Test 02/08/19 17:33 02/08/19 18:15 02/08/19 20:38 02/09/19 03:10 Glucose (Fingerstick) 185 mg/dL (70-99) 193 mg/dL (70-99) Potassium Level 4.5 mmol/L (3.5-5.1) 4.0 mmol/L (3.5-5.1) Test 02/09/19 07:16 Glucose (Fingerstick) 141 mg/dL (70-99) Results All relevant outside records, renal labs, imaging studies, telemetry/EKG's were reviewed. YURIDIA IBARRA MD Feb 09, 2019 11:40
[2019-02-09] MEDS: ONDANSETRON ODT 4 MG TAB.RAPDIS. PO PRN ×2 (11:51→18:19)
[2019-02-09] MEDS ORDERED: predniSONE 20 MG TABLET PO ONE (12:00)
--- NOTE | 2019-02-09 13:52 | NUR ---
SS following for discharge planning. SS reviewed pt chart. Pt is from home with son and is currently on room air. Pt receiving Peritoneal Dialysis in the community. SS will continue to follow for discharge planning.
--- NOTE | 2019-02-09 14:20 | PDOC ---
BEBETO SILVA ABDI 02/09/19 1420: CARDIO Progress Notes Date and Time Date of Service 02/09/19 Time of Evaluation 1410 Subjective Subjective: No Chest Pain, No shortness of breath, No Palpitations Vitals Vitals Vital Signs Date Time Temp Pulse Resp B/P (MAP) Pulse Ox O2 Delivery O2 Flow Rate FiO2 02/09/19 11:39 92 176/81 02/09/19 10:31 98.5 18 93 Room Air 98.5 Weight Weight [ ] Input and Output Intake and Output Intake and Output 02/09/19 07:00 Intake Total 880 ml Balance 880 ml Intake Oral 880 ml # Voids 1 # Bowel Movements 3 Laboratory Labs Laboratory Tests Test 02/08/19 14:50 02/08/19 17:10 02/08/19 17:33 02/08/19 18:15 Heparin Anti-Xa Act, Unfractionated < 0.10 IU/mL (0.30-0.70) Body Fluid Source Perit dialysate Body Fluid Color Colorless Body Fluid Clarity Clear Body Fluid Nucleated Cells 0 /cmm (Not Established) Body Fluid Total RBCs Counted 0 /cmm (Not Established) Glucose (Fingerstick) 185 mg/dL (70-99) Potassium Level 4.5 mmol/L (3.5-5.1) Test 02/08/19 20:38 02/09/19 03:10 02/09/19 07:16 02/09/19 12:02 Glucose (Fingerstick) 193 mg/dL (70-99) 141 mg/dL (70-99) 130 mg/dL (70-99) Potassium Level 4.0 mmol/L (3.5-5.1) Physical Exam HEENT: Neck Supple W Full Motion Chest: Symmetric LUNGS: Clear to Auscultation Heart: S1S2, irregularly irregular (afib, intermittent RVR noted on tele) Abdomen: Soft N/T Extremities: No Edema Neurology: alert, oriented, follow commands Assessment Assessment 1. NSTEMI; peak 0.071. Most probably type II, demand ischemia. Limited echo with preserved LV systolic function 2. Accelerated HTN; remains labile. 3. 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 Permanent AFIB; intermittent RVR noted on tele 5. CAD s/p CABG in 2008 and subsequent PCI/stent to 07/2013 and PCI/LARA to LCx in 2017. 6. SSS s/p PPM implantation 7. PAD; s/p Rt AKA and B[employer]BER/stent to the right SFA. Clinically stable. 8. Hyperlipidemia; statin 9. Diabetes, II 10. ESRD on HD 11. 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 12. Aortic stenosis, moderate to severe Recommendations Increase Cardizem for better rate control Blood pressure control; increase hydralazine Continue secondary prevention Consider further ischemic workup, possibly as an outpatient Supportive care WILLI LINDSEY MD 02/09/192020: CARDIO Progress Notes Assessment Assessment Patient seen and examined. Agree with BL[employer]IN[employer] TRIMMER's assessment and plan. CP on admission concerning for cardiac etiology Gen surg planning temporal artery biopsy Agree with increasing hydralazine dose for better BP control Plan for cardiac cath tomorrow. Risks and benefits explained. BEBETO SILVA APRN Feb 09, 2019 14:20 WILLI LINDSEY MD Feb 09, 2019 20:21
[2019-02-09 14:37] VITALS: BP 122/54
[2019-02-09 19:40] VITALS: BP 172/105
[2019-02-09] MEDS: ATORVASTATIN CALCIUM 40 MG TABLET. PO SCH (21:03)
[2019-02-09] MEDS: hydrALAZINE 20 MG/ML VIAL. IVP PRN (22:07)
[2019-02-09 22:45] VITALS: BP 186/103
[2019-02-09] MEDS ORDERED: guaiFENesin DM 200MG/20MG 10 ML SYRUP PO PRN (23:15)
[2019-02-10] VITALS (31 sets, daily range): BP systolic 128–222; BP diastolic 58–98
--- NOTE | 2019-02-10 00:34 | NUR ---
pt still c/o being nauseous. Next zofran dose not until 0220am. Attempted to reach physician oncology account specialist. Will try paging again.
[2019-02-10] MEDS ORDERED: ONDANSETRON PF 4 MG/2 ML VIAL. IVP PRN (00:45)
[2019-02-10] MEDS: hydrALAZINE 20 MG/ML VIAL. IVP PRN (02:12)
[2019-02-10] MEDS ORDERED: fentaNYL PF VIAL 100 MCG/2 ML VIAL IVP PRN (02:45)
[2019-02-10] MEDS: CALCIUM CARBONATE 500 MG TAB.CHEW PO PRN (02:52)
[2019-02-10] MEDS ORDERED: NITROGLYCERIN PREMIX 250 ML IV PRN (04:00)
[2019-02-10] MEDS ORDERED: ONDANSETRON PF 4 MG/2 ML VIAL. IV PRN (07:00)
[2019-02-10] MEDS ORDERED: fentaNYL PF VIAL 100 MCG/2 ML VIAL IV PRN ×2 (07:00)
[2019-02-10] MEDS ORDERED: PROCHLORPERAZINE 10 MG/2 ML VIAL. IV PRN (07:00)
[2019-02-10] MEDS ORDERED: MORPHINE SULFATE 2 MG/ML VIAL. IV PRN (07:00)
[2019-02-10] MEDS ORDERED: HYDROmorphone 2 MG/ML VIAL IV PRN (07:00)
[2019-02-10] MEDS: CALCIUM ACETATE 667 MG CAPSULE PO SCH ×3 (07:59→17:53)
[2019-02-10] MEDS: CHOLECALCIFEROL (VITAMIN D3) 1,000 UNIT TABLET PO SCH (08:00)
[2019-02-10] MEDS: IPRATRPIUM/ALBUTEROL 0.5/2.5MG 3 ML NEBU. NEB SCH ×3 (08:00→16:45)
[2019-02-10] MEDS: CALCIUM CARBONATE 500 MG TABLET PO SCH (08:00)
[2019-02-10] MEDS: ASCORBIC ACID 500 MG TABLET PO SCH (08:00)
[2019-02-10] MEDS: CYANOCOBALAMIN (VITAMIN B-12) 1,000 MCG TABLET. PO SCH (08:00)
[2019-02-10] MEDS ORDERED: IODIXANOL 320 MG/ML 100 ML VIAL. ONE (08:37)
[2019-02-10] MEDS: LABETALOL HCL 100 MG TABLET. PO SCH ×2 (08:38→21:21)
[2019-02-10] MEDS: MAGNESIUM OXIDE 400 MG TABLET PO SCH (08:39)
[2019-02-10] MEDS: ISOSORBIDE MONONITRATE ER 30 MG TAB.ER.24H PO SCH (08:39)
--- NOTE | 2019-02-10 08:39 | PDOC ---
Provider Note Provider Note vss, bp labile, has hx of white coat bp- will have both cath and TA bx today, cont prednisone pending results CHRISTINA ROSENBAUM MD Feb 10, 2019 08:39
[2019-02-10] MEDS ORDERED: fentaNYL PF VIAL 100 MCG/2 ML VIAL ONE ×2 (08:44→12:57)
[2019-02-10] MEDS ORDERED: MIDAZOLAM HCL/PF 5 MG/5 ML VIAL. ONE (08:44)
[2019-02-10] MEDS ORDERED: FAMOTIDINE 20 MG TABLET. PO SCH (09:00)
[2019-02-10] MEDS ORDERED: IODIXANOL 320 MG/ML 100 ML VIAL. IART ONE (09:30)
[2019-02-10] MEDS ORDERED: fentaNYL PF VIAL 100 MCG/2 ML VIAL IV ONE (09:30)
[2019-02-10] MEDS ORDERED: MIDAZOLAM HCL/PF 5 MG/5 ML VIAL. IV ONE (09:30)
[2019-02-10] MEDS ORDERED: LIDOCAINE 1% Multi-Dose 20 ML VIAL. INJ ONE (09:30)
--- NOTE | 2019-02-10 10:05 | PDOC ---
MODERATE SEDATION ASSESSMENT RISKS/ALTERNATIVES Risks/Alternatives Risks and alternatives of this type of sedation and procedure discussed with: RISK/ALTERNATIVES: Patient H & P ON CHART H & P H & P on chart and reviewed for co-morbid conditions and appropriate labs. H&P ON CHART: Yes STATUS PREG STATUS ASSESSED: N/A MEDS/ALLERGIES REVIEWED Meds/Allergies Reviewed Medications and Allergies including time and route of recently administered narcotics and sedatives. MEDS/ALLERGIES REVIEWED: Yes ASA RATING ASA RATING: II AIRWAY ASSESSMENT Airway Assessment Airway patency, oral function limitations, presence of caps, crowns, dentures, partials, and ability to extend neck assessed. AIRWAY ASSESSMENT: Yes MALLAMPATI SCORE MALLAMPATI SCORE: II PRE-SEDATION ASSESSMENT PRE-SEDATION ASSESSMENT: Yes WILLI LINDSEY MD Feb 10, 2019 10:05
[2019-02-10] MEDS ORDERED: NITROGLYCERIN SUBLINGUAL 0.4 MG BOTTLE OF 25. SL PRN (10:15)
--- NOTE | 2019-02-10 10:45 | PDOC ---
SUBJECTIVE ROS S/P Cardiac cath this am , No complaints Scheduled for Temporal Art Bx later this afternoon OBJECTIVE Vital Signs Vital Signs Date Time Temp Pulse Resp B/P (MAP) Pulse Ox O2 Delivery O2 Flow Rate FiO2 02/10/19 10:06 16 98 Nasal Cannula 2.0 02/10/19 10:02 86 02/10/19 07:00 98.3 165/71 (102) 98.3 I & 0 Intake and Output 02/10/19 06:59 Intake Total 580 ml Output Total 150 ml Balance 430 ml Intake Oral 580 ml Output Urine Total 150 ml PHYSICAL EXAM Physical Exam GEN.: No apparent distress. HEENT: Head is normocephalic, atraumatic, OM moist NECK: Supple. LUNGS: Clear to auscultation. HEART: RRR, S1, S2 present. ABDOMEN: Soft, nontender. PD catheter +, No signs of infection EXTREMITIES: No edema NEUROLOGIC: Grossly normal SKIN: No rash DIAGNOSIS/ASSESSMENT Assessment & Plan ESRD.On PD Continue home regimen of peritoneal dialysis UF >2lts Anemia: Epogen once hemoglobin less than 10 Transfuse with next HD as needed. HTN managed by Cardiology Bone & Mineral: Follow phosphorus levels and alter binder regimen as needed Headaches with visual disturbances left jaw pain - scheduled for temporal artery biopsy today NSTEMI - Possible Type 2 versus CAD S/P Cardiac cath this am COMMENT/RELEVANT DATA Meds Current Medications Medications (Trade) Dose Ordered Sig/Shilo Start Time Stop Time Status Last Admin Dose Admin Acetaminophen (Tylenol) 650 mg PRN Q4HRS PRN 02/06/19 17:15 02/07/19 17:14 DC Acetaminophen/ Hydrocodone Bitart (Lortab 5/325) 1 tab PRN TID PRN 02/06/19 21:15 02/09/19 22:59 1 TAB Albuterol/ Ipratropium (Duoneb) 3 ml RTQID 02/07/19 08:00 02/09/19 19:27 3 ML Ascorbic Acid (Vitamin C) 1,000 mg DAILY 02/07/19 09:00 02/09/19 11:38 1,000 MG Atorvastatin Calcium (Lipitor) 40 mg HS 02/06/19 22:00 02/09/19 21:03 40 MG Calcium Acetate (Phoslo) 667 mg TIDWMEALS 02/07/19 08:00 02/09/19 17:41 667 MG Calcium Carbonate/ Glycine (Oscal) 500 mg DAILY 02/07/19 09:00 02/09/19 11:38 500 MG Calcium Carbonate/ Glycine (Tums) 500 mg PRN Q4HRS PRN 02/10/19 02:45 02/10/19 02:52 500 MG Clopidogrel Bisulfate (Plavix) 75 mg DAILY 02/07/19 09:00 02/09/19 08:26 DC 02/08/19 08:49 75 MG Cyanocobalamin (Vitamin B-12) 2,500 mcg DAILY 02/07/19 09:00 02/09/19 11:39 2,500 MCG Cyclobenzaprine HCl (Flexeril) 10 mg TID 02/06/19 22:00 02/09/19 08:49 DC 02/08/19 20:42 10 MG Diltiazem HCl (Cardizem 24hr Cd) 300 mg DAILY 02/10/19 09:00 02/10/19 08:40 300 MG Famotidine (Pepcid Vial) 40 mg 1X ONCE 02/09/19 02:00 02/09/19 02:01 DC 02/09/19 01:38 20 MG Famotidine (Pepcid) 20 mg QODAY 02/10/19 09:00 Fentanyl Citrate (Fentanyl 2ml Vial) 100 mcg 1X ONCE 02/10/19 09:30 02/10/19 09:31 DC 02/10/19 10:06 50 MCG Guaifenesin (Robitussin Dm) 10 ml PRN Q6HRS PRN 02/09/19 23:15 02/09/19 23:30 10 ML Heparin Sodium (Porcine) (Heparin Sodium) 1,700 unit PRN Q6HRS PRN 02/06/19 17:17 02/08/19 20:17 DC Heparin Sodium/ Dextrose 500 ml @ 14.496 mls/ hr CONT PRN 02/06/19 17:17 02/08/19 20:17 DC 02/07/19 20:33 14.496 MLS/HR Heparin Sodium/ Sodium Chloride (HEPARIN for ARTERIAL LINE FLUSH) 1,000 unit 1X ONCE 02/10/19 09:30 02/10/19 09:31 DC 02/10/19 10:04 1,000 UNIT Hydralazine HCl (Apresoline Inj) 10 mg PRN Q4HRS PRN 02/08/19 11:15 02/10/19 03:52 DC 02/10/19 02:12 10 MG Hydralazine HCl (Apresoline) 100 mg BID 02/09/19 21:00 02/10/19 08:39 100 MG Hydromorphone HCl (Dilaudid) 0.5 mg PRN Q10MIN PRN 02/10/19 07:00 02/11/19 06:59 Insulin Human Lispro (HumaLOG) 15 units 1X ONCE 02/07/19 21:15 02/07/19 21:16 DC 02/07/19 22:25 15 UNITS Iodixanol (Visipaque 320) 100 ml 1X ONCE 02/10/19 09:30 02/10/19 09:31 DC 02/10/19 10:04 108 ML Isosorbide Mononitrate (Imdur) 120 mg DAILY 02/07/19 09:00 02/10/19 08:39 120 MG Labetalol HCl (Trandate) 100 mg BID 02/06/19 22:00 02/10/19 08:38 100 MG Lidocaine HCl (Lidocaine 1% 20ml Vial) 20 ml 1X ONCE 02/10/19 09:30 02/10/19 09:31 DC 02/10/19 10:04 20 ML Magnesium Oxide (Magnesium Oxide) 400 mg DAILY 02/07/19 09:00 02/10/19 08:39 400 MG Magnesium Sulfate 50 ml @ 25 mls/hr 1X ONCE 02/06/19 16:45 02/06/19 18:44 DC 02/06/19 17:04 25 MLS/HR Midazolam HCl (Versed) 5 mg 1X ONCE 02/10/19 09:30 02/10/19 09:31 DC 02/10/19 10:06 2 MG Morphine Sulfate (Morphine Sulfate) 1 mg PRN Q10MIN PRN 02/10/19 07:00 02/11/19 06:59 Nitroglycerin (Nitrostat) 0.4 mg PRN Q5MIN PRN 02/10/19 10:15 Nitroglycerin/ Dextrose 250 ml @ 1.5 mls/hr CONT PRN 02/10/19 04:00 02/10/19 04:05 1.5 MLS/HR Ondansetron HCl (Zofran Odt) 4 mg PRN Q8HRS PRN 02/06/19 21:15 02/09/19 18:19 4 MG Ondansetron HCl (Zofran) 4 mg PRN Q6HRS PRN 02/10/19 00:45 02/10/19 00:53 4 MG Potassium Chloride (Klor-Con) 40 meq PRN Q6HRS PRN 02/07/19 13:30 02/09/19 08:26 DC 02/08/19 07:01 40 MEQ Prednisone (Prednisone) 60 mg DAILY08 ONCE 02/09/19 12:00 02/09/19 12:01 DC 02/09/19 13:04 60 MG Prochlorperazine Edisylate (Compazine) 5 mg PACU PRN PRN 02/10/19 07:00 02/11/19 06:59 Sodium Chloride 1,000 ml @ 30 mls/hr Q24H 02/10/19 14:00 Vitamin D (Vitamin D3) 2,000 unit DAILY 02/07/19 09:00 02/09/19 11:38 2,000 UNIT Zolpidem Tartrate (Ambien) 5 mg PRN QHS PRN 02/06/19 22:00 02/06/19 23:38 5 MG Lab Laboratory Tests Test 02/09/19 12:02 Glucose (Fingerstick) 130 mg/dL (70-99) Results All relevant outside records, renal labs, imaging studies, telemetry/EKG's were reviewed. YURIDIA IBARRA MD Feb 10, 2019 10:45
--- NOTE | 2019-02-10 11:27 | CARD ---
MR#: [id number] Date of Study: 02/10/2019 Ordering Physician: WILLI LINDSEY, Referring Physician: WILLI LINDSEY Tech: RT Jenn (R) APPROVED REPORT Technologist: Jordyn Ibarra RT (R) Nurse: Tawny Tavares R.N. Procedure(s) performed: Left heart catheterization, selective coronary angiography and selective kerry ography of the bypass grafts Fluoro time: 5.8MIN Dose: 25Emxo8 Contrast: 108cc Moderate sedation: 38 minutes INDICATION The indication(s) include : unstable angina . CSHA Clinical Frailty Scale [facility] Clinical Frailty Scale: Mildly Frail Heart Failure Heart Failure: No PROCEDURE NARRATIVE After explaining the risks, benefits and alternative options, informed consent was obtained from rodolfo ent. Patient was brought to the cardiac Corporate Director Of Pharmacy and her right groin was prepped and draped in the us ual fashion. 20 mL of 2% lidocaine was infiltrated into the skin and subcutaneous tissues for local a nesthesia. Arterial access was obtained in the right common femoral artery and a 6 [place] sheath was inserted. 6 [place] JL4 and 6 [place] JR4 catheters were used to perform selective angiography of the l eft and right coronary arteries. The 6 [place] JR4 catheter was used to perform selective angiography of the left internal mammary artery graft to the left anterior descending artery and also to perform pullback gradient across the left subclavian artery stenosis. LVEDP and transaortic gradients were me asured. Left ventriculography was not performed since 2-D echo this admission showed LVEF 50-55%. Pat ient tolerated the procedure well. Hemostasis was achieved using mynx closure device. There were no i mmediate complications. FINDINGS: 1. Hemodynamics: Left ventricular end-diastolic pressure 17 mmHg. No pullback gradient across the a ortic valve. 2. Coronary and bypass graft angiography: a. The left main coronary artery arose from the left sinus of Valsalva, gave rise to the left anteri or descending and left circumflex arteries and showed a widely patent previously placed stent. b. The left anterior descending artery showed 40% stenosis in the proximal segment and 70-80% stenos is in the midsegment. c. The left circumflex artery showed widely patent previously placed stent in the midsegment extendi ng into the second obtuse marginal branch. d. The right coronary artery showed chronic total occlusion in the midsegment. e. The left internal mammary artery graft to the left anterior descending artery was widely patent. f. The left subclavian artery showed 40-50% stenosis without any pullback gradient across the lesion . Conclusion Coronary artery disease s/p CABG with patent GUTIERREZ to LAD, patent previously placed stents in the left main coronary artery and also the left circumflex artery. The right coronary artery was noted to be chronically occluded from prior cardiac catheterizations. No lesions needing intervention were noted. Recommendations Medical Therapy Signed by : Willi Lindsey, Electronically Approved : 02/10/2019 11:27:01
[2019-02-10 11:29] LABS: CALCIUM 9.7 mg/dL (8.5-10.1); CREATININE 7.4 mg/dL (0.6-1.0); GFR 5.4; POTASSIUM 5.1 mmol/L (3.5-5.1)
[2019-02-10] MEDS ORDERED: BUPIVACAINE MPF 0.25% 30 ML VIAL. ONE (12:17)
[2019-02-10] MEDS ORDERED: PHENYLEPHRINE in 0.9% NACL PF 1 MG/10 ML SYRINGE. IV ONE (13:29)
--- NOTE | 2019-02-10 14:06 | PDOC4 ---
Operative Note Operative Note Date: 02/10/2019 Preoperative diagnosis: Left jaw claudication headache visual disturbances Postoperative diagnosis: Same Procedure: Left temporal artery biopsy Surgeon: Crispin Specimen: Temporal artery Dictation: Patient is a 73-year-old female is better the hospital with severe coronary artery disease she's also complaining of left jaw pain headache and visual disturbances in his request for a temporal artery biopsy to rule out temporal arteritis. Procedure of temporal artery biopsy was explained to the patient detail risk benefits were also discussed including bleeding infection alternatives to this procedure also discussed with patient seemed to understand mikaela verbal written consent to have the procedure performed. Patient was taken to operative Raposa supine position IV sedation was initiated and LMA was placed patient's left temporal area was prepped and draped usual sterile fashion using Betadine solution. Area over the temporal artery was injected with quarter percent Marcaine incision was made with 15 blade scalpel was carried down through subcutaneous anus tissue using electrocautery divided hemostasis the temporal artery was visualized and controlled proximally distally with mosquito clamps and the artery between was sent for pathology the 2 ends of the artery tied with 4-0 Vicryl ties. Wound was then closed in a single layer for septic and a Monocryl Mastisol Steri-Strips and island dressings were applied. Patient was awakened in the operating room taken to recovery in stable condition all sponge instrument needle counts listed as correct estimate blood loss 5 mL BRIAN BEARD MD Feb 10, 2019 14:06
[2019-02-10] MEDS ORDERED: PROPOFOL 20 ML IV ONE (14:15)
[2019-02-10] MEDS ORDERED: PHENYLEPHRINE 10 MG/ML VIAL. ONE (14:15)
[2019-02-10] MEDS ORDERED: LIDOCAINE 2% PF 5 ML VIAL. ONE (14:15)
[2019-02-10] MEDS: IV NORMAL SALINE 1000ML BAG 1,000 ML IV SCH (14:23)
[2019-02-10] MEDS ORDERED: ALBUTEROL SULFATE 2.5 MG/3 ML NEBU. NEB PRN (17:00)
[2019-02-10] MEDS: LISINOPRIL 20 MG TABLET PO SCH (17:54)
[2019-02-10] MEDS: ATORVASTATIN CALCIUM 40 MG TABLET. PO SCH (21:21)
[2019-02-10] MEDS: ZOLPIDEM 5 MG TABLET. PO PRN (23:40)
[2019-02-11] MEDS: CALCIUM CARBONATE 500 MG TAB.CHEW PO PRN (00:12)
[2019-02-11 03:05] VITALS: BP 122/66
[2019-02-11 05:00] LABS: CALCIUM 9.8 mg/dL (8.5-10.1); CREATININE 7.2 mg/dL (0.6-1.0); GFR 5.6; POTASSIUM 4.8 mmol/L (3.5-5.1)
[2019-02-11 07:00] VITALS: BP_SYST 152; BP_SYST 156; BP_DIAS 63; BP_DIAS 74
[2019-02-11] MEDS: LABETALOL HCL 100 MG TABLET. PO SCH ×2 (09:06→20:31)
[2019-02-11] MEDS: ISOSORBIDE MONONITRATE ER 30 MG TAB.ER.24H PO SCH (09:07)
[2019-02-11] MEDS: CALCIUM CARBONATE 500 MG TABLET PO SCH (09:07)
[2019-02-11] MEDS: CYANOCOBALAMIN (VITAMIN B-12) 1,000 MCG TABLET. PO SCH (09:07)
[2019-02-11] MEDS: ASCORBIC ACID 500 MG TABLET PO SCH (09:07)
[2019-02-11] MEDS: CHOLECALCIFEROL (VITAMIN D3) 1,000 UNIT TABLET PO SCH (09:08)
[2019-02-11] MEDS: LISINOPRIL 20 MG TABLET PO SCH (09:08)
[2019-02-11] MEDS: CALCIUM ACETATE 667 MG CAPSULE PO SCH ×3 (09:08→18:38)
[2019-02-11] MEDS: MAGNESIUM OXIDE 400 MG TABLET PO SCH (09:08)
--- NOTE | 2019-02-11 09:12 | PDOC ---
Provider Note Provider Note vss, she reports less facial pain and beter L eye vision after 2 doses pred- TA bx pending- she looks better as well so clinically a + response re dc of temporal arteritis, may have been affecting chest pain as well- cont 50 mg pred daily, poss dc in am CHRISTINA ROSENBAUM MD Feb 11, 2019 09:12
[2019-02-11] MEDS ORDERED: predniSONE 10 MG TABLET PO ONE (09:30)
--- NOTE | 2019-02-11 10:52 | PDOC ---
SUBJECTIVE ROS S/P Cardiac cath 02/10 and s/p Temporal Art Bx Stable OBJECTIVE Vital Signs Vital Signs Date Time Temp Pulse Resp B/P (MAP) Pulse Ox O2 Delivery O2 Flow Rate FiO2 02/11/19 09:08 82 152/63 02/11/19 08:00 Room Air 02/11/19 07:00 97.5 18 97 97.5 02/10/19 14:25 10 I & 0 Intake and Output 02/11/19 07:00 Intake Total 1240 ml Output Total 155 ml Balance 1085 ml Intake Oral 1140 ml IV Total 100 ml Output Urine Total 150 ml Estimated Blood Loss 5 ml PHYSICAL EXAM Physical Exam GEN.: No apparent distress. HEENT: Head is normocephalic, atraumatic, OM moist NECK: Supple. LUNGS: Clear to auscultation. HEART: RRR, S1, S2 present. ABDOMEN: Soft, nontender. PD catheter +, No signs of infection EXTREMITIES: No edema NEUROLOGIC: Grossly normal SKIN: No rash DIAGNOSIS/ASSESSMENT Assessment & Plan ESRD.On PD Continue home regimen of peritoneal dialysis , javier Chew Anemia: Epogen if hemoglobin< 10 Transfuse with next HD as needed. HTN managed by Cardiology Bone & Mineral: Follow phosphorus levels and alter binder regimen as needed Headaches with visual disturbances left jaw pain - s/p temporal artery biopsy 02/10 CAD-s/p CABG and stents NSTEMI - Possible Type 2 versus CAD S/P Cardiac cath -previously placed stents patent, right coronary artery chronically occluded from prior cardiac catheterizations. No lesions needing intervention COMMENT/RELEVANT DATA Meds Current Medications Medications (Trade) Dose Ordered Sig/Shilo Start Time Stop Time Status Last Admin Dose Admin Acetaminophen (Tylenol) 650 mg PRN Q4HRS PRN 02/06/19 17:15 02/07/19 17:14 DC Acetaminophen/ Hydrocodone Bitart (Lortab 5/325) 1 tab PRN TID PRN 02/06/19 21:15 02/09/19 22:59 1 TAB Albuterol Sulfate (Ventolin Neb Soln) 2.5 mg PRN Q4HRS PRN 02/10/19 17:00 Albuterol/ Ipratropium (Duoneb) 3 ml RTQID 02/07/19 08:00 02/10/19 16:51 DC 02/09/19 19:27 3 ML Ascorbic Acid (Vitamin C) 1,000 mg DAILY 02/07/19 09:00 02/11/19 09:07 1,000 MG Atorvastatin Calcium (Lipitor) 40 mg HS 02/06/19 22:00 02/10/19 21:21 40 MG Bupivacaine HCl (Sensorcaine Mpf 0.25%) 30 ml STK-MED ONCE 02/10/19 12:17 02/10/19 12:17 DC 02/10/19 13:41 2 ML Calcium Acetate (Phoslo) 667 mg TIDWMEALS 02/07/19 08:00 02/11/19 09:08 667 MG Calcium Carbonate/ Glycine (Oscal) 500 mg DAILY 02/07/19 09:00 02/11/19 09:07 500 MG Calcium Carbonate/ Glycine (Tums) 500 mg PRN Q4HRS PRN 02/10/19 02:45 02/11/19 00:12 500 MG Clopidogrel Bisulfate (Plavix) 75 mg DAILY 02/07/19 09:00 02/09/19 08:26 DC 02/08/19 08:49 75 MG Cyanocobalamin (Vitamin B-12) 2,500 mcg DAILY 02/07/19 09:00 02/11/19 09:07 2,500 MCG Cyclobenzaprine HCl (Flexeril) 10 mg TID 02/06/19 22:00 02/09/19 08:49 DC 02/08/19 20:42 10 MG Diltiazem HCl (Cardizem 24hr Cd) 300 mg DAILY 02/10/19 09:00 02/11/19 09:07 300 MG Famotidine (Pepcid Vial) 40 mg 1X ONCE 02/09/19 02:00 02/09/19 02:01 DC 02/09/19 01:38 20 MG Famotidine (Pepcid) 20 mg QODAY 02/10/19 09:00 02/10/19 11:16 20 MG Fentanyl Citrate (Fentanyl 2ml Vial) 100 mcg STK-MED ONCE 02/10/19 12:57 02/10/19 12:57 DC Guaifenesin (Robitussin Dm) 10 ml PRN Q6HRS PRN 02/09/19 23:15 02/09/19 23:30 10 ML Heparin Sodium (Porcine) (Heparin Sodium) 1,700 unit PRN Q6HRS PRN 02/06/19 17:17 02/08/19 20:17 DC Heparin Sodium/ Dextrose 500 ml @ 14.496 mls/ hr CONT PRN 02/06/19 17:17 02/08/19 20:17 DC 02/07/19 20:33 14.496 MLS/HR Heparin Sodium/ Sodium Chloride (HEPARIN for ARTERIAL LINE FLUSH) 1,000 unit 1X ONCE 02/10/19 09:30 02/10/19 09:31 DC 02/10/19 10:04 1,000 UNIT Hydralazine HCl (Apresoline Inj) 10 mg PRN Q4HRS PRN 02/08/19 11:15 02/10/19 03:52 DC 02/10/19 02:12 10 MG Hydralazine HCl (Apresoline) 100 mg BID 02/09/19 21:00 02/11/19 09:08 100 MG Hydromorphone HCl (Dilaudid) 0.5 mg PRN Q10MIN PRN 02/10/19 07:00 02/11/19 06:59 DC Insulin Human Lispro (HumaLOG) 15 units 1X ONCE 02/07/19 21:15 02/07/19 21:16 DC 02/07/19 22:25 15 UNITS Iodixanol (Visipaque 320) 100 ml 1X ONCE 02/10/19 09:30 02/10/19 09:31 DC 02/10/19 10:04 108 ML Isosorbide Mononitrate (Imdur) 120 mg DAILY 02/07/19 09:00 02/11/19 09:07 120 MG Labetalol HCl (Trandate) 100 mg BID 02/06/19 22:00 02/11/19 09:06 100 MG Lidocaine HCl (Lidocaine 1% 20ml Vial) 20 ml 1X ONCE 02/10/19 09:30 02/10/19 09:31 DC 02/10/19 10:04 20 ML Lidocaine HCl (Lidocaine Pf 2% Vial) 5 ml STK-MED ONCE 02/10/19 14:15 02/10/19 14:15 DC Lisinopril (Prinivil) 20 mg DAILY 02/10/19 15:45 02/11/19 09:08 20 MG Magnesium Oxide (Magnesium Oxide) 400 mg DAILY 02/07/19 09:00 02/11/19 09:08 400 MG Magnesium Sulfate 50 ml @ 25 mls/hr 1X ONCE 02/06/19 16:45 02/06/19 18:44 DC 02/06/19 17:04 25 MLS/HR Midazolam HCl (Versed) 5 mg 1X ONCE 02/10/19 09:30 02/10/19 09:31 DC 02/10/19 10:06 2 MG Morphine Sulfate (Morphine Sulfate) 1 mg PRN Q10MIN PRN 02/10/19 07:00 02/11/19 06:59 DC Nitroglycerin (Nitrostat) 0.4 mg PRN Q5MIN PRN 02/10/19 10:15 Nitroglycerin/ Dextrose 250 ml @ 1.5 mls/hr CONT PRN 02/10/19 04:00 02/10/19 16:19 DC 02/10/19 04:05 1.5 MLS/HR Ondansetron HCl (Zofran Odt) 4 mg PRN Q8HRS PRN 02/06/19 21:15 02/09/19 18:19 4 MG Ondansetron HCl (Zofran) 4 mg PRN Q6HRS PRN 02/10/19 00:45 02/10/19 00:53 4 MG Phenylephrine HCl (Boubacar-Synephrine Inj) 10 mg STK-MED ONCE 02/10/19 14:15 02/10/19 14:15 DC Phenylephrine HCl (PHENYLEPHRINE in 0.9% NACL PF) 1 mg STK-MED ONCE 02/10/19 13:29 02/10/19 13:30 DC Potassium Chloride (Klor-Con) 40 meq PRN Q6HRS PRN 02/07/19 13:30 02/09/19 08:26 DC 02/08/19 07:01 40 MEQ Prednisone (Prednisone) 50 mg DAILY08 ONCE 02/11/19 09:30 02/11/19 09:31 DC 02/11/19 09:22 50 MG Prochlorperazine Edisylate (Compazine) 5 mg PACU PRN PRN 02/10/19 07:00 02/11/19 06:59 DC Propofol 20 ml @ As Directed STK-MED ONCE 02/10/19 14:15 02/10/19 14:15 DC Sodium Chloride 1,000 ml @ 30 mls/hr Q24H 02/10/19 14:00 02/10/19 14:23 30 MLS/HR Vitamin D (Vitamin D3) 2,000 unit DAILY 02/07/19 09:00 02/11/19 09:08 2,000 UNIT Zolpidem Tartrate (Ambien) 5 mg PRN QHS PRN 02/06/19 22:00 02/10/19 23:40 5 MG Lab Laboratory Tests Test 02/11/19 04:05 Sodium Level 133 mmol/L (136-145) Potassium Level 4.8 mmol/L (3.5-5.1) Chloride Level 94 mmol/L (98-107) Carbon Dioxide Level 28 mmol/L (21-32) Anion Gap 11 (6-14) Blood Urea Nitrogen 34 mg/dL (7-20) Creatinine 7.2 mg/dL (0.6-1.0) Estimated GFR (Cockcroft-Gault) 5.6 Glucose Level 189 mg/dL (70-99) Calcium Level 9.8 mg/dL (8.5-10.1) Results All relevant outside records, renal labs, imaging studies, telemetry/EKG's were reviewed. YURIDIA IBARRA MD Feb 11, 2019 10:52
[2019-02-11 11:00] VITALS: BP 116/56
--- NOTE | 2019-02-11 12:03 | PDOC ---
GOPI HERNANDEZ WRAPPER REWINDER 02/11/19 1203: CARDIO Progress Notes Date and Time Date of Service 02/11/2019 Time of Evaluation 1140 Subjective Subjective: No Chest Pain, No shortness of breath, No Palpitations Vitals Vitals Vital Signs Date Time Temp Pulse Resp B/P (MAP) Pulse Ox O2 Delivery O2 Flow Rate FiO2 02/11/19 11:00 97.7 80 18 116/56 (76) 96 Room Air 97.7 02/10/19 14:25 10 Weight Weight [ ] Input and Output Intake and Output Intake and Output 02/11/19 07:00 Intake Total 1240 ml Output Total 155 ml Balance 1085 ml Intake Oral 1140 ml IV Total 100 ml Output Urine Total 150 ml Estimated Blood Loss 5 ml Laboratory Labs Laboratory Tests Test 02/11/19 04:05 Sodium Level 133 mmol/L (136-145) Potassium Level 4.8 mmol/L (3.5-5.1) Chloride Level 94 mmol/L (98-107) Carbon Dioxide Level 28 mmol/L (21-32) Anion Gap 11 (6-14) Blood Urea Nitrogen 34 mg/dL (7-20) Creatinine 7.2 mg/dL (0.6-1.0) Estimated GFR (Cockcroft-Gault) 5.6 Glucose Level 189 mg/dL (70-99) Calcium Level 9.8 mg/dL (8.5-10.1) Microbiology Micro Microbiology 02/08/19 Aerobic Culture, Resulted Pending 02/08/19 Aerobic Culture Result 1 (MAHENDRA), Resulted Pending 02/08/19 Gram Stain - Final, Resulted 02/08/19 Gram Stain Result 1 (MAHENDRA) - Final, Resulted 02/08/19 Gram Stain Result 2 (MAHENDRA) - Final, Resulted Physical Exam HEENT: Neck Supple W Full Motion Chest: Symmetric LUNGS: Clear to Auscultation Heart: S1S2, irregularly irregular (afib) Abdomen: Soft N/T Extremities: No Edema Neurology: alert, oriented, follow commands Assessment Assessment 1. NSTEMI: peaked at 0.07. demand mediated, type 2. EF nml. LHC revealed no significant changes with stent/graft 2. Accelerated HTN; controlled 3. Possible temporal arteritis; S/P Bx, result pending 4. Permanent AFIB; rate controlled 5. CAD s/p CABG in 2008 and subsequent PCI/stent to LM 07/2013 and PCI/LARA to LCx in 2017. 6. SSS s/p PPM implantation 7. PAD; s/p Rt AKA and SR. MEDIA MANAGER/stent to the right SFA. Clinically stable. 8. Hyperlipidemia; statin 9. Diabetes, II 10. ESRD 11. ANNA; s/p SR. MEDIA MANAGER/stents to bilateral renal arteries in the past with recent selective renal angiography showing chronic total occlusion of the right renal artery within the stent and 30% in-stent restenosis involving the left renal artery. 12. Aortic stenosis, moderate to severe, will monitor as outpt Recommendations 1. Cardizem for rate control 300 mg CD 2. Continue with current BP regimen and secondary prevention measures. 3. FLuid off loading per dialysis 4. Follow up in office. 5. Will follow along peripherally. WILLI LINDSEY MD 02/12/19 0657: CARDIO Progress Notes Assessment Assessment Patient seen and examined 02/11/19. Agree with EVIDENCE TECHNICIAN's assessment and plan. Cardiac catheterization yesterday did not show any lesions needing intervention Blood pressure better controlled Continue current medical regimen Continue hemodialysis per nephrology team Follow-up with our office in 1 month GOPI HERNANDEZ APRN Feb 11, 2019 12:03 WILLI LINDSEY MD Feb 12, 2019 06:57
--- NOTE | 2019-02-11 13:08 | PATHOLOGY ---
[facility] Accession Number: [id number] . 01 Material submitted: . artery - LEFT TEMPORAL ARTERY BIOPSY. Modifiers: left, temporal . 01 Clinical history: . Headaches . 02 Diagnosis: "Left temporal artery", biopsy: - Tiny fragment of skeletal muscle, adipose tissue, and nerve. - No arterial tissue present. (SKM:kim; 02/11/2019) QMS 02/11/2019 1054 Local . 02 Electronically signed: . Jorge Gaviria MD, Pathologist NPI- [id number] . 01 Gross description: . The specimen is received in formalin, labeled "Debbie Uribe, left temporal artery biopsy", is an irregular fragment of kiran tissue measuring 0.4 x 0.1 x 0.1 cm, entirely submitted in toto in A1. ([facility]; 02/10/2019) [facility] 02/10/2019 2051 Local . 02 Pathologist provided ICD-10: R51 . 02 CPT . 090879 Specimen Comment: A courtesy copy of this report has been sent to Specimen Comment: [phone], , . Specimen Comment: Report sent to ,DR CHAO / DR PUENTES Performed at: 01 [facility] [address], [place] [id number] MD Micheal Juan MD Phone: [phone] Performed at: 02 [facility] [address], [place] [id number] MD Quentin Mcclellan MD Phone: [phone]
[2019-02-11] MEDS: IV NORMAL SALINE 1000ML BAG 1,000 ML IV SCH (14:00)
[2019-02-11 18:43] VITALS: BP 120/71
[2019-02-11] MEDS: ATORVASTATIN CALCIUM 40 MG TABLET. PO SCH (20:31)
[2019-02-11 23:00] VITALS: BP 115/73
[2019-02-11] MEDS: ZOLPIDEM 5 MG TABLET. PO PRN (23:02)
[2019-02-12 03:00] VITALS: BP 143/67
[2019-02-12 07:00] VITALS: BP 164/64
--- NOTE | 2019-02-12 08:31 | PDOC ---
Provider Note Provider Note [id number] CHRISTINA ROSENBAUM MD Feb 12, 2019 08:31
--- NOTE | 2019-02-12 08:59 | DS ---
DATE OF DISCHARGE: 02/12/2019 HOSPITAL SUMMARY: A 73-year-old white female who came in with chest pain, shortness of breath and pain in her left eye and jaw claudication. Laboratory study showed end-stage renal disease and sed rate was high at 60, which had been 39 in the past. Echocardiogram was unremarkable and she underwent temporal artery biopsy and results of which are pending. Prednisone orally for possible temporal arteritis has made a significant improvement in her symptoms and underwent cardiac catheterization, which revealed no new lesions. She is comfortable to be followed as an outpatient at this point. FINAL DIAGNOSES: 1. Chest pain secondary to coronary artery disease. 2. Temporal arteritis, clinical diagnosis and pathology report pending. 3. End-stage renal disease, on peritoneal dialysis. OPERATIONS AND PROCEDURES: Cardiac catheterization and temporal artery biopsy. OPERATIONS, PROCEDURES, COMPLICATIONS: None. CONSULTATIONS: Dr. Roa, Dr. Heredia's group, Dr. Melendrez. DISPOSITION: Prednisone 50 mg daily ongoing. We will follow with sed rates and clinical reduction as low as possible to benefit from the prednisone and prevent vision loss. All other meds remain the same for blood pressure and heart. Continue peritoneal dialysis and prognosis is guarded given her medical problems. CHRISTINA ROSENBAUM MD DR: AVNI/concetta JOB#: [id number] / [id number]
[2019-02-12] MEDS: CALCIUM ACETATE 667 MG CAPSULE PO SCH (09:11)
[2019-02-12] MEDS: MAGNESIUM OXIDE 400 MG TABLET PO SCH (09:11)
[2019-02-12] MEDS: CALCIUM CARBONATE 500 MG TABLET PO SCH (09:12)
[2019-02-12] MEDS: ISOSORBIDE MONONITRATE ER 30 MG TAB.ER.24H PO SCH (09:12)
[2019-02-12] MEDS: ASCORBIC ACID 500 MG TABLET PO SCH (09:13)
[2019-02-12] MEDS: LABETALOL HCL 100 MG TABLET. PO SCH (09:13)
[2019-02-12] MEDS: CHOLECALCIFEROL (VITAMIN D3) 1,000 UNIT TABLET PO SCH (09:13)
[2019-02-12] MEDS: CYANOCOBALAMIN (VITAMIN B-12) 1,000 MCG TABLET. PO SCH (09:13)
--- NOTE | 2019-02-12 10:43 | PDOC ---
SUBJECTIVE ROS S/P Cardiac cath 02/10 and s/p Temporal Art Bx Stable, no complaints, states she is going home today OBJECTIVE Vital Signs Vital Signs Date Time Temp Pulse Resp B/P (MAP) Pulse Ox O2 Delivery O2 Flow Rate FiO2 02/12/19 09:13 80 02/12/19 07:00 96.0 20 164/64 (97) 90 Room Air 96.0 I & 0 Intake and Output 02/12/19 06:59 Intake Total 1136 ml Output Total 350 ml Balance 786 ml Intake Oral 1136 ml Output Urine Total 350 ml Stool Total 0 ml # Bowel Movements 1 PHYSICAL EXAM Physical Exam GEN.: No apparent distress. HEENT: Head is normocephalic, atraumatic, OM moist NECK: Supple. LUNGS: Clear to auscultation. HEART: RRR, S1, S2 present. ABDOMEN: Soft, nontender. PD catheter +, No signs of infection EXTREMITIES: No edema NEUROLOGIC: Grossly normal SKIN: No rash DIAGNOSIS/ASSESSMENT Assessment & Plan ESRD.On PD On home regimen of peritoneal dialysis , javier Chew Anemia: Epogen if hemoglobin< 10 Transfuse with next HD as needed. HTN stable Bone & Mineral: Follow phosphorus levels and alter binder regimen as needed Headaches with visual disturbances left jaw pain - s/p temporal artery biopsy 02/10 On Prednisone orally for possible temporal arteritis , report pending CAD-s/p CABG and stents NSTEMI - Possible Type 2 versus CAD S/P Cardiac cath -previously placed stents patent, right coronary artery chronically occluded from prior cardiac catheterizations. No lesions needing intervention COMMENT/RELEVANT DATA Meds Current Medications Medications (Trade) Dose Ordered Sig/Shilo Start Time Stop Time Status Last Admin Dose Admin Acetaminophen (Tylenol) 650 mg PRN Q4HRS PRN 02/06/19 17:15 02/07/19 17:14 DC Acetaminophen/ Hydrocodone Bitart (Lortab 5/325) 1 tab PRN TID PRN 02/06/19 21:15 02/12/19 08:17 DC 02/09/19 22:59 1 TAB Albuterol Sulfate (Ventolin Neb Soln) 2.5 mg PRN Q4HRS PRN 02/10/19 17:00 Albuterol/ Ipratropium (Duoneb) 3 ml RTQID 02/07/19 08:00 02/10/19 16:51 DC 02/09/19 19:27 3 ML Ascorbic Acid (Vitamin C) 1,000 mg DAILY 02/07/19 09:00 02/12/19 09:13 1,000 MG Atorvastatin Calcium (Lipitor) 40 mg HS 02/06/19 22:00 02/11/19 20:31 40 MG Bupivacaine HCl (Sensorcaine Mpf 0.25%) 30 ml STK-MED ONCE 02/10/19 12:17 02/10/19 12:17 DC 02/10/19 13:41 2 ML Calcium Acetate (Phoslo) 667 mg TIDWMEALS 02/07/19 08:00 02/12/19 09:11 667 MG Calcium Carbonate/ Glycine (Oscal) 500 mg DAILY 02/07/19 09:00 02/12/19 09:12 500 MG Calcium Carbonate/ Glycine (Tums) 500 mg PRN Q4HRS PRN 02/10/19 02:45 02/11/19 00:12 500 MG Clopidogrel Bisulfate (Plavix) 75 mg DAILY 02/07/19 09:00 02/09/19 08:26 DC 02/08/19 08:49 75 MG Cyanocobalamin (Vitamin B-12) 2,500 mcg DAILY 02/07/19 09:00 02/12/19 09:13 2,500 MCG Cyclobenzaprine HCl (Flexeril) 10 mg TID 02/06/19 22:00 02/09/19 08:49 DC 02/08/19 20:42 10 MG Diltiazem HCl (Cardizem 24hr Cd) 300 mg DAILY 02/10/19 09:00 02/12/19 09:12 300 MG Famotidine (Pepcid Vial) 40 mg 1X ONCE 02/09/19 02:00 02/09/19 02:01 DC 02/09/19 01:38 20 MG Famotidine (Pepcid) 20 mg QODAY 02/10/19 09:00 02/12/19 08:24 DC 02/10/19 11:16 20 MG Fentanyl Citrate (Fentanyl 2ml Vial) 100 mcg STK-MED ONCE 02/10/19 12:57 02/10/19 12:57 DC Guaifenesin (Robitussin Dm) 10 ml PRN Q6HRS PRN 02/09/19 23:15 02/12/19 08:17 DC 02/09/19 23:30 10 ML Heparin Sodium (Porcine) (Heparin Sodium) 1,700 unit PRN Q6HRS PRN 02/06/19 17:17 02/08/19 20:17 DC Heparin Sodium/ Dextrose 500 ml @ 14.496 mls/ hr CONT PRN 02/06/19 17:17 02/08/19 20:17 DC 02/07/19 20:33 14.496 MLS/HR Heparin Sodium/ Sodium Chloride (HEPARIN for ARTERIAL LINE FLUSH) 1,000 unit 1X ONCE 02/10/19 09:30 02/10/19 09:31 DC 02/10/19 10:04 1,000 UNIT Hydralazine HCl (Apresoline Inj) 10 mg PRN Q4HRS PRN 02/08/19 11:15 02/10/19 03:52 DC 02/10/19 02:12 10 MG Hydralazine HCl (Apresoline) 100 mg BID 02/09/19 21:00 02/12/19 09:12 100 MG Hydromorphone HCl (Dilaudid) 0.5 mg PRN Q10MIN PRN 02/10/19 07:00 02/11/19 06:59 DC Insulin Human Lispro (HumaLOG) 15 units 1X ONCE 02/07/19 21:15 02/07/19 21:16 DC 02/07/19 22:25 15 UNITS Iodixanol (Visipaque 320) 100 ml 1X ONCE 02/10/19 09:30 02/10/19 09:31 DC 02/10/19 10:04 108 ML Isosorbide Mononitrate (Imdur) 120 mg DAILY 02/07/19 09:00 02/12/19 09:12 120 MG Labetalol HCl (Trandate) 100 mg BID 02/06/19 22:00 02/12/19 09:13 100 MG Lidocaine HCl (Lidocaine 1% 20ml Vial) 20 ml 1X ONCE 02/10/19 09:30 02/10/19 09:31 DC 02/10/19 10:04 20 ML Lidocaine HCl (Lidocaine Pf 2% Vial) 5 ml STK-MED ONCE 02/10/19 14:15 02/10/19 14:15 DC Lisinopril (Prinivil) 20 mg DAILY 02/10/19 15:45 02/12/19 08:24 DC 02/11/19 09:08 20 MG Magnesium Oxide (Magnesium Oxide) 400 mg DAILY 02/07/19 09:00 02/12/19 09:11 400 MG Magnesium Sulfate 50 ml @ 25 mls/hr 1X ONCE 02/06/19 16:45 02/06/19 18:44 DC 02/06/19 17:04 25 MLS/HR Midazolam HCl (Versed) 5 mg 1X ONCE 02/10/19 09:30 02/10/19 09:31 DC 02/10/19 10:06 2 MG Morphine Sulfate (Morphine Sulfate) 1 mg PRN Q10MIN PRN 02/10/19 07:00 02/11/19 06:59 DC Nitroglycerin (Nitrostat) 0.4 mg PRN Q5MIN PRN 02/10/19 10:15 Nitroglycerin/ Dextrose 250 ml @ 1.5 mls/hr CONT PRN 02/10/19 04:00 02/10/19 16:19 DC 02/10/19 04:05 1.5 MLS/HR Ondansetron HCl (Zofran Odt) 4 mg PRN Q8HRS PRN 02/06/19 21:15 02/09/19 18:19 4 MG Ondansetron HCl (Zofran) 4 mg PRN Q6HRS PRN 02/10/19 00:45 02/10/19 00:53 4 MG Phenylephrine HCl (Boubacar-Synephrine Inj) 10 mg STK-MED ONCE 02/10/19 14:15 02/10/19 14:15 DC Phenylephrine HCl (PHENYLEPHRINE in 0.9% NACL PF) 1 mg STK-MED ONCE 02/10/19 13:29 02/10/19 13:30 DC Potassium Chloride (Klor-Con) 40 meq PRN Q6HRS PRN 02/07/19 13:30 02/09/19 08:26 DC 02/08/19 07:01 40 MEQ Prednisone (Prednisone) 50 mg DAILY08 ONCE 02/11/19 09:30 02/11/19 09:31 DC 02/11/19 09:22 50 MG Prochlorperazine Edisylate (Compazine) 5 mg PACU PRN PRN 02/10/19 07:00 10/16/19 06:59 DC Propofol 20 ml @ As Directed STK-MED ONCE 02/10/19 14:15 02/10/19 14:15 DC Sodium Chloride 1,000 ml @ 30 mls/hr Q24H 02/10/19 14:00 02/10/19 14:23 30 MLS/HR Vitamin D (Vitamin D3) 2,000 unit DAILY 02/07/19 09:00 02/12/19 09:13 2,000 UNIT Zolpidem Tartrate (Ambien) 5 mg PRN QHS PRN 02/06/19 22:00 02/11/19 23:02 5 MG Results All relevant outside records, renal labs, imaging studies, telemetry/EKG's were reviewed. YURIDIA IBARRA MD Feb 12, 2019 10:43
[2019-02-12 11:00] VITALS: BP 137/65
[2019-02-12] MEDS ORDERED: DILT240C2 PO (11:24)
[2019-02-12] MEDS ORDERED: HYDR100T24 PO (11:25)
[2019-02-12] MEDS ORDERED: PRED50TA PO (11:26)
--- NOTE | 2019-02-12 11:45 | NUR ---
Discharge: Teaching verbal and written. Reviewed medications, follow-up, hypertension, dialysis, temporal artery biopsy, ect. Patient and patients son Bakari verbalized understanding. Dr. Pritchard called in a prescription for prednisone. Written prescription for hydralazine and Cardizem given to patient. Iv removed without complications, catheter tip in-tact. All belongings with patient. Patient assisted off of unit via wheelchair accompanied by son and nurse.
== END 2019-02-12 11:30 | disposition home or self-care (01) | DRG 252 ==
LOC: ER 15:48 → 2 NORTH 17:13
PROVIDERS: ADMIT Family Medicine; ATTEND Family Medicine
PROC: 4A023N7 Measurement of Cardiac Sampling and Pressure, Left Heart, Percutaneous Approach (ICD-10-PCS; 2019-02-10)
PROC: B2111ZZ Fluoroscopy of Multiple Coronary Arteries using Low Osmolar Contrast (ICD-10-PCS; 2019-02-10)
PROC: B2131ZZ Fluoroscopy of Multiple Coronary Artery Bypass Grafts using Low Osmolar Contrast (ICD-10-PCS; 2019-02-10)
PROC: 03BT0ZX Excision of Left Temporal Artery, Open Approach, Diagnostic (ICD-10-PCS; principal; 2019-02-10 13:00)
DX: I25.110 Atherosclerotic heart disease of native coronary artery with unstable angina pectoris (principal); N18.6 End stage renal disease; I13.2 Hypertensive heart and chronic kidney disease with heart failure and with stage 5 chronic kidney disease, or end stage renal disease; I48.21 Permanent atrial fibrillation; M19.90 Unspecified osteoarthritis, unspecified site; J44.9 Chronic obstructive pulmonary disease, unspecified; E78.00 Pure hypercholesterolemia, unspecified; E87.6 Hypokalemia; I50.9 Heart failure, unspecified; E11.22 Type 2 diabetes mellitus with diabetic chronic kidney disease; H53.40 Unspecified visual field defects; I49.5 Sick sinus syndrome; E78.5 Hyperlipidemia, unspecified; I35.2 Nonrheumatic aortic (valve) stenosis with insufficiency; E11.51 Type 2 diabetes mellitus with diabetic peripheral angiopathy without gangrene; Z89.612 Acquired absence of left leg above knee; Z95.0 Presence of cardiac pacemaker; Z88.0 Allergy status to penicillin; Z88.8 Allergy status to other drugs, medicaments and biological substances; Z89.611 Acquired absence of right leg above knee; Z95.1 Presence of aortocoronary bypass graft; Z99.2 Dependence on renal dialysis
CPT/HCPCS: 93459; 96365; 96366; 96375; 99285; G0269; 36415; 71045; 80048; 80053; 82962; 83036; 83735; 84132; 84484; 85007; 85025; 85520; 85651; 87070; 88305; 89050; 93005; 93308; 94640; 94760; 99152; 99153; A7015; C1713; C1769; C1892; J0360; J1644; J1815; J2001; J2250; J2370; J2405; J2704; J3010; J3475; J3490; J7030; J7512; J7620; Q0162; Q9967; G0378

== ENCOUNTER 2019-02-23 19:10 | Inpatient (IN) | payer MEDICARE, OTHER ==
[~2019-02-23] VITALS: Ht 167.6 cm; Wt 56.4 kg
[~2019-02-23 19:10] MED LIST changes: +DILT240C2 PO; +HYDR100T24 PO; +PRED50TA PO
[2019-02-23 20:07] LABS: BASO % 0 % (0-3); EOS # 0.1 x10^3/uL (0.0-0.7); EOS % 1 % (0-3); HEMATOCRIT 37.5 % (36.0-47.0); HEMOGLOBIN 12.5 g/dL (12.0-15.5); LYMPH % 14 % (24-48); MEAN CORPUSCULAR HEMOGLOBIN 30 pg (25-35); MEAN CORPUSCULAR HGB CONC 33 g/dL (31-37); MEAN CORPUSCULAR VOLUME 91 fL (79-100); MONO # 0.9 x10^3/uL (0.0-1.1); MONO % 7 % (0-9); NEUT # 11.2 x10^3/uL (1.8-7.7); NEUT % 79 % (31-73); PLATELET COUNT 450 x10^3/uL (140-400); RED BLOOD COUNT 4.11 x10^6/uL (3.50-5.40); RED CELL DISTRIBUTION WIDTH 17.6 % (11.5-14.5); WHITE BLOOD COUNT 14.3 x10^3/uL (4.0-11.0)
[2019-02-23 20:23] LABS: ALBUMIN 3.1 g/dL (3.4-5.0); ALBUMIN/GLOBULIN RATIO 0.9 (1.0-1.7); CREATININE 7.7 mg/dL (0.6-1.0); GFR 5.2; MAGNESIUM 1.9 mg/dL (1.8-2.4); POTASSIUM 3.5 mmol/L (3.5-5.1); TOTAL BILIRUBIN 0.4 mg/dL (0.2-1.0); TOTAL PROTEIN 6.7 g/dL (6.4-8.2)
[2019-02-23 20:30] LABS: CREATINE KINASE 39 U/L (26-192)
[2019-02-23 20:36] LABS: CALCIUM 13.4 mg/dL (8.5-10.1)
--- NOTE | 2019-02-23 20:55 | PHYS DOC ---
Past Medical History Past Medical History: CAD, CHF, COPD, Diabetes-Type II, High Cholesterol, Heart Disease, Hypertension, [place], Renal Failure Additional Past Medical Histor: Carpal Tunnel Past Surgical History: Angioplasty, Coronary Bypass Surgery, Pacemaker, Other Additional Past Surgical Histo: LEFT AKA;r carpal tunne,[facility] Alcohol Use: None Drug Use: None Adult General Chief Complaint Chief Complaint: ABDOMINAL PAIN HPI HPI Patient is a 73 year old female, accompanied to the emergency room by her son, with reports of abdominal pain, nausea, vomiting, and diarrhea for the last 5 days. She currently rates her pain a 9 out of 10 on the pain scale, she denies any alleviating factors. Patient describes the pain as cramping and states that the pain is worse on the left side of her abdomen. She denies any dysuria, increased urinary frequency, hematuria, or bloody stools. Patient states she does hemodialysis every night denies any problems with her dialysis site or missing any dialysis recently. Pt denies any fever, cough, shortness of breath, or chest pain. Review of Systems Review of Systems Constitutional: Denies fever or chills [] Eyes: Denies redness, or eye pain [] HENT: Denies nasal congestion or sore throat [] Respiratory: Denies cough or shortness of breath [] Cardiovascular: No additional information not addressed in HPI [] GI: Denies bloody stools; reports abdominal pain, nausea, vomiting, and diarrhea [] : Denies dysuria or hematuria [] Musculoskeletal: Denies back pain or joint pain [] Integument: Denies rash or skin lesions [] Neurologic: Denies headache Complete systems were reviewed and found to be within normal limits, except as documented in this note. Current Medications Current Medications Allergies Allergies Allergies Coded Allergies Type Severity Reaction Last Updated Verified Penicillins Allergy Intermediate Hives 11/11/17 Yes bacitracin Allergy Intermediate 11/07/17 Yes erythromycin base Allergy Intermediate Hives 11/11/17 Yes neomycin Allergy Intermediate 11/07/17 Yes niacin Allergy Intermediate 11/07/17 Yes polymyxin B Allergy Intermediate 11/07/17 Yes Physical Exam Physical Exam Constitutional: Well developed, well nourished, no acute distress, non-toxic appearance. [] HENT: Normocephalic, atraumatic, bilateral external ears normal, oropharynx moist, no oral exudates, nose normal. [] Eyes: PERRLA, EOMI, conjunctiva normal, no discharge. [] Neck: Normal range of motion, no stridor. [] Cardiovascular:Heart rate regular rhythm Lungs & Thorax: Bilateral breath sounds clear to auscultation; unlabored [] Abdomen: Bowel sounds normal, soft, no rebound tenderness, no guarding, no masses, no pulsatile masses; LUQ, LLQ, and epigastric TTP Skin: Warm, dry, no erythema, no rash. [] Back: No tenderness, no CVA tenderness. [] Extremities: No cyanosis, no clubbing, ROM intact, no edema. [] Neurologic: Alert and oriented X 3, no focal deficits noted. [] Psychologic: Affect normal, judgement normal, mood normal. [] Current Patient Data Vital Signs Vital Signs Date Time Temp Pulse Resp B/P (MAP) Pulse Ox O2 Delivery O2 Flow Rate FiO2 02/23/19 20:48 80 14 134/61 (85) 98 Room Air 02/23/19 19:12 97.1 97.1 Lab Values Laboratory Tests Test 02/23/19 19:52 White Blood Count 14.3 x10^3/uL (4.0-11.0) H Red Blood Count 4.11 x10^6/uL (3.50-5.40) Hemoglobin 12.5 g/dL (12.0-15.5) Hematocrit 37.5 % (36.0-47.0) Mean Corpuscular Volume 91 fL (79-100) Mean Corpuscular Hemoglobin 30 pg (25-35) Mean Corpuscular Hemoglobin Concent 33 g/dL (31-37) Red Cell Distribution Width 17.6 % (11.5-14.5) H Platelet Count 450 x10^3/uL (140-400) H Neutrophils (%) (Auto) 79 % (31-73) H Lymphocytes (%) (Auto) 14 % (24-48) L Monocytes (%) (Auto) 7 % (0-9) Eosinophils (%) (Auto) 1 % (0-3) Basophils (%) (Auto) 0 % (0-3) Neutrophils # (Auto) 11.2 x10^3/uL (1.8-7.7) H Lymphocytes # (Auto) 2.0 x10^3/uL (1.0-4.8) Monocytes # (Auto) 0.9 x10^3/uL (0.0-1.1) Eosinophils # (Auto) 0.1 x10^3/uL (0.0-0.7) Basophils # (Auto) 0.0 x10^3/uL (0.0-0.2) Sodium Level 137 mmol/L (136-145) Potassium Level 3.5 mmol/L (3.5-5.1) Chloride Level 96 mmol/L (98-107) L Carbon Dioxide Level 28 mmol/L (21-32) Anion Gap 13 (6-14) Blood Urea Nitrogen 51 mg/dL (7-20) H Creatinine 7.7 mg/dL (0.6-1.0) H Estimated GFR (Cockcroft-Gault) 5.2 BUN/Creatinine Ratio 7 (6-20) Glucose Level 107 mg/dL (70-99) H Calcium Level 13.4 mg/dL (8.5-10.1) *H Magnesium Level 1.9 mg/dL (1.8-2.4) Total Bilirubin 0.4 mg/dL (0.2-1.0) Aspartate Amino Transferase (AST) 14 U/L (15-37) L Alanine Aminotransferase (ALT) 15 U/L (14-59) Alkaline Phosphatase 69 U/L (46-116) Creatine Kinase 39 U/L (26-192) Creatine Kinase MB (Mass) 2.4 ng/mL (0.0-3.6) Creatine Kinase MB Relative Index % (0-4) Troponin I Quantitative 0.102 ng/mL (0.000-0.055) Total Protein 6.7 g/dL (6.4-8.2) Albumin 3.1 g/dL (3.4-5.0) L Albumin/Globulin Ratio 0.9 (1.0-1.7) L Lipase 106 U/L (73-393) Laboratory Tests 02/23/19 19:52 Laboratory Tests 02/23/19 19:52 EKG EKG with PVCs and left axis deviation, no STEMI read by Dr. Alfaro. [] Radiology/Procedures Radiology/Procedures PROCEDURE: CT ABDOMEN PELVIS WO CONTRAST Exam: CT abdomen and pelvis without contrast INDICATION: Left-sided abdominal pain TECHNIQUE: Sequential axial images through the abdomen and pelvis obtained without IV contrast. Sagittal and coronal reformatted images were reconstructed from the axial data and reviewed. Comparisons: 01/17/2019 FINDINGS: Heart size is normal. No pericardial effusion. Visualized lung bases are clear. No pleural effusion. Evaluation of solid organs is limited secondary to noncontrast technique. Liver, pancreas and adrenals are unremarkable. Gallbladder surgically absent. Spleen is at the upper limits of normal in size. No perinephric inflammation or hydronephrosis. Kidneys are atrophic bilaterally severe on the right. No renal or ureteral calculi are identified. Bladder is decompressed not well evaluated. Uterus is not enlarged. No abnormal adnexal mass. A few scattered diverticula are noted predominantly the sigmoid colon without evidence of acute diverticulitis. There is some mucosal fat deposition noted within the ascending colon. Appendix is normal. No free intra-abdominal air. There is trace free fluid noted in the pelvis. There is a peritoneal dialysis catheter noted within the pelvis. Abdominal aorta has normal course and caliber. No enlarged abdominal lymph nodes are identified. No suspicious osseous lesions or acute fractures. IMPRESSION: No acute process identified within the abdomen or pelvis. [] Course & Med Decision Making Course & Med Decision Making Pertinent Labs and Imaging studies reviewed. (See chart for details) DX:n/v/d, renal failure CBC 14.3, plt 450; CMP: cl 96, BUN 51, Prenatal Nurse 7.7, glucose 107, calcium 13.4, troponin 0.102 CT abd/pel negative for acute findings EKG negative for STEMI [address] Pritchard who is the admitting physician, and care was assumed following discussion of patient. Advised of abnormal calcium and troponin levels. Per Dr. Pritchard pt has had recent extensive workup not concerned about elevated troponin. Will recheck calcium tomorrow. Patient's vital signs stable. Patient remains afebrile, appears nontoxic, respirations even and unlabored. Patient will be admitted to the med/surg floor. Patient's case and plan of care also discussed with Dr. Alfaro [] Eb Disclaimer Dragon Disclaimer This electronic medical record was generated, in whole or in part, using a voice recognition dictation system. Departure Departure Impression: Primary Impression: Nausea, vomiting, and diarrhea Additional Impression: Renal failure Disposition: ADMITTED INPATIENT Admitting Physician: Andrew Pritchard Condition: STABLE Referrals: TRUSTY,EDER B MD (PCP) Problem Qualifiers Additional Impression: Renal failure Renal failure chronicity: chronic Chronic kidney disease stage: on chronic dialysis Qualified Codes: N18.6 - End stage renal disease; Z99.2 - Dependence on renal dialysis KYLE HYMAN APRN Feb 23, 2019 20:55
[2019-02-23] MEDS ORDERED: ONDANSETRON PF 4 MG/2 ML VIAL. IV ONE (21:00)
[2019-02-23] MEDS ORDERED: IV NORMAL SALINE 1000ML BAG 1,000 ML IV ONE (21:00)
[2019-02-23] MEDS ORDERED: ONDANSETRON PF 4 MG/2 ML VIAL. IV PRN (21:00)
[2019-02-23] MEDS ORDERED: IV DEXTROSE 5 %-0.45 % NACL 1,000 ML IV ONE (21:00)
--- NOTE | 2019-02-23 21:29 | RAD ---
Exam: CT abdomen and pelvis without contrast INDICATION: Left-sided abdominal pain TECHNIQUE: Sequential axial images through the abdomen and pelvis obtained without IV contrast. Sagittal and coronal reformatted images were reconstructed from the axial data and reviewed. Comparisons: 01/17/2019 FINDINGS: Heart size is normal. No pericardial effusion. Visualized lung bases are clear. No pleural effusion. Evaluation of solid organs is limited secondary to noncontrast technique. Liver, pancreas and adrenals are unremarkable. Gallbladder surgically absent. Spleen is at the upper limits of normal in size. No perinephric inflammation or hydronephrosis. Kidneys are atrophic bilaterally severe on the right. No renal or ureteral calculi are identified. Bladder is decompressed not well evaluated. Uterus is not enlarged. No abnormal adnexal mass. A few scattered diverticula are noted predominantly the sigmoid colon without evidence of acute diverticulitis. There is some mucosal fat deposition noted within the ascending colon. Appendix is normal. No free intra-abdominal air. There is trace free fluid noted in the pelvis. There is a peritoneal dialysis catheter noted within the pelvis. Abdominal aorta has normal course and caliber. No enlarged abdominal lymph nodes are identified. No suspicious osseous lesions or acute fractures. IMPRESSION: No acute process identified within the abdomen or pelvis. Exposure: One or more of the following in the visualized dose reduction techniques were utilized for this examination: 1. Automated exposure control 2. Adjustment of the MA and/or KV according to patient size 3. Use of iterative of reconstructive technique Electronically signed by: Seda Moody MD (02/23/2019 9:26 PM) [facility]
[2019-02-23 22:00] VITALS: BP 138/68
[2019-02-24] MEDS: HYDROcodone/APAP 5/325MG 1 TAB TABLET PO PRN ×2 (00:57→17:14)
[2019-02-24] MEDS ORDERED: ONDANSETRON ODT 4 MG TAB.RAPDIS. PO PRN (01:00)
[2019-02-24 03:00] VITALS: BP 143/77
[2019-02-24 05:11] LABS: ALBUMIN 2.6 g/dL (3.4-5.0); CALCIUM 11.2 mg/dL (8.5-10.1); CREATININE 7.8 mg/dL (0.6-1.0); GFR 5.1; POTASSIUM 3.4 mmol/L (3.5-5.1); TOTAL BILIRUBIN 0.3 mg/dL (0.2-1.0); TOTAL PROTEIN 5.2 g/dL (6.4-8.2)
--- NOTE | 2019-02-24 06:04 | EKG ---
[facility] [address] [place] [address] Test Date: 2019-02-23 Test Time: 19:59:15 Pat Name: MARISA RIOJAS Department: Room: Gender: F Digital Photographer: : 1945 Requested By: KYLE HYMAN Order Number: [id number] Reading MD: Measurements Intervals [place] Rate: 87 P: -122 [place]: 192 QRS: -80 QRSD: 222 T: 102 QT: 432 QTc: 520 Interpretive Statements SINUS RHYTHM COMPLEX(ES) WITH ABERRANT INTRAVENTRICULAR CONDUCTION VENTRICULAR PREMATURE COMPLEX(ES) INTERPOLATED VENTRICULAR PREMATURE COMPLEX(ES) ABNORMAL LEFT AXIS DEVIATION S1,S2,S3 PATTERN
[2019-02-24 07:00] VITALS: BP 141/80
[2019-02-24] MEDS: IPRATRPIUM/ALBUTEROL 0.5/2.5MG 3 ML NEBU. NEB SCH ×4 (07:55→19:39)
[2019-02-24] MEDS ORDERED: CALCIUM ACETATE 667 MG CAPSULE PO SCH (08:00)
[2019-02-24] MEDS ORDERED: CALCIUM CARBONATE 500 MG TABLET PO SCH (08:00)
--- NOTE | 2019-02-24 08:15 | NUR ---
Patient received flu vaccine during previous admission. Flu vaccine administered 01/20/19 @09:28
--- NOTE | 2019-02-24 08:25 | PDOC ---
Provider Note Provider Note [id number] CHRISTINA ROSENBAUM MD Feb 24, 2019 08:25
[2019-02-24] MEDS: PANTOPRAZOLE 40 MG TABLET.DR. PO SCH (08:39)
[2019-02-24] MEDS: CHOLECALCIFEROL (VITAMIN D3) 1,000 UNIT TABLET PO SCH (08:40)
[2019-02-24] MEDS: MAGNESIUM OXIDE 400 MG TABLET PO SCH (08:40)
[2019-02-24] MEDS: CYANOCOBALAMIN (VITAMIN B-12) 1,000 MCG TABLET. PO SCH (08:40)
[2019-02-24] MEDS: ASCORBIC ACID 500 MG TABLET PO SCH (08:41)
[2019-02-24] MEDS: predniSONE 20 MG TABLET PO SCH (08:41)
[2019-02-24] MEDS: CLOPIDOGREL BISULFATE 75 MG TABLET PO SCH (08:41)
[2019-02-24] MEDS: LABETALOL HCL 100 MG TABLET. PO SCH ×2 (08:42→20:57)
--- NOTE | 2019-02-24 08:47 | HP ---
ADMIT DATE: CHIEF COMPLAINT: Headache, vomiting, nausea and diarrhea for 5 days. HISTORY OF PRESENT ILLNESS: A 73-year-old white female discharged about 10 days ago after cardiac catheterization, which was all clear and temporal artery biopsy for presumed or possible temporal arteritis. She had headache and facial pain and visual symptoms and jaw claudication and prednisone seemed to help greatly before she left, but the temporal artery biopsy was inconclusive as an arterial tissue was presented. She developed nausea, vomiting, diarrhea about 3-4 days ago and some headache still and has not been exposed to ill people. She denies melena, hematochezia, fever, hematemesis or exposure to illness. ER evaluation showed high calcium, but this morning the calcium levels are better and calcium levels last week were all normal. PAST MEDICAL HISTORY: Well documented in the old chart. Peritoneal dialysis at home. ALLERGIES: LISTED. SOCIAL HISTORY: Single, lives with her son. Nonsmoker, nondrinker. FAMILY HISTORY: Unremarkable. REVIEW OF SYSTEMS: Unremarkable. OBJECTIVE: ENT: Temporal artery incision healed. ENT: The mouth is a little dry, otherwise unremarkable. NECK: Revealed no masses, nodes or thyroid enlargement. LUNGS: Clear. CARDIOVASCULAR: Regular rate. No murmur. ABDOMEN: Obese, soft, benign and nontender. EXTREMITIES: Poor pedal pulses on the right side and she has a left BK amputation. Skin is dry. Turgor is decreased. NEUROLOGIC: Physiologic. ASSESSMENT: 1. Nausea, vomiting, diarrhea, etiology unclear, multifactorial, possible. 2. Ongoing headaches. She takes Imdur high dose despite having normal coronaries and possibly nitrate-induced headache. 3. Suspected temporal arteritis seems to be better on prednisone. Temporal artery biopsy was not done. 4. Hypercalcemia, which appears to be improving just with IV fluids. Last week was normal. It makes it unlikely that any acute hypercalcemia would present. PLAN: We will discontinue Imdur, continue IV fluids, check parathyroid hormone and follow accordingly. CHRISTINA ROSENBAUM MD DR: AVNI/concetta JOB#: [id number] / [id number]
[2019-02-24] MEDS ORDERED: predniSONE 20 MG TABLET PO SCH (09:00)
[2019-02-24] MEDS ORDERED: ISOSORBIDE MONONITRATE ER 30 MG TAB.ER.24H PO SCH (09:00)
[2019-02-24] MEDS ORDERED: FLU VAX QS 2019-20 (36MOS+)/PF 0.5 ML SYRINGE. VAX IM ONE (09:00)
--- NOTE | 2019-02-24 10:31 | RAD ---
CT HEAD WO CONTRAST History: Headache. Comparison: October 14, 2017 Technique: Noncontrast CT imaging was performed of the head. Exposure: One or more of the following individualized dose reduction techniques were utilized for this examination: 1. Automated exposure control 2. Adjustment of the mA and/or kV according to patient size 3. Use of iterative reconstruction technique. Findings: No intracranial hemorrhage. No mass effect. No hydrocephalus. Moderate brain parenchymal volume loss, unchanged. Moderate foci of decreased attenuation within the hemispheric white matter, most often due to chronic microvascular ischemia. Intracranial atheromatous calcination. Chronic left frontal cortical infarct. Imaged orbits are unremarkable. Imaged paranasal sinuses and mastoid air cells are clear. Impression: 1. No acute intracranial abnormality. 2. Brain parenchymal volume loss and sequela of chronic microvascular ischemia. 3. Small chronic left frontal cortical infarct, unchanged. Electronically signed by: Percy Garcia DO (02/24/2019 10:28 AM) [facility]
--- NOTE | 2019-02-24 10:55 | NUR ---
SW following for discharge planning. Discussed with RN, pt is from home. RN advised no SW needs at this time. SW will continue to follow.
[2019-02-24 11:00] VITALS: BP 95/49
--- NOTE | 2019-02-24 11:42 | PDOC2 ---
CONSULT Date of Consult Date of Consult DATE: 02/24/19 TIME: 11:30 Reason for Consult Reason for Consult: ESRD on PD Referring Physician Referring Physician: Dr. Pritchard History of Present Illness Reason for Visit: Pt is a 73-year-old white female discharged about 10 days ago after cardiac catheterization, which was all clear and temporal artery biopsy for presumed or possible temporal arteritis. She had headache and facial pain and visual symptoms and jaw claudication and prednisone seemed to help greatly before she left, but the temporal artery biopsy was inconclusive as an arterial tissue was presented. She developed nausea, vomiting, diarrhea about 3-4 days ago and some headache still and has not been exposed to ill people. She denies melena, hematochezia, fever, hematemesis or exposure to illness. Past Medical History Cardiovascular: AFIB, CAD, CHF, HTN, Valve insufficiency, Other Pulmonary: COPD CENTRAL NERVOUS SYSTEM: Other GI: No pertinent hx Heme/Onc: Anemia NOS Musculoskeletal: Osteoarthritis Renal/: Chronic renal failure Endocrine: Diabetes Past Surgical History Past Surgical History: Other Family History Family History: Other Social History ALCOHOL: none Drugs: None Lives: with Family Domestic Violence: Neg Current Problem List Problem List Problems Medical Problems: (1) Nausea, vomiting, and diarrhea Status: Acute (2) Renal failure Status: Acute Current Medications Current Medications Current Medications Sodium Chloride 1,000 ml @ 1,000 mls/hr 1X ONCE IV Last administered on 02/23/19at 21:14; Start 02/23/19 at 21:00; Stop 02/23/19 at 21:59; Status DC Ondansetron HCl (Zofran) 4 mg 1X ONCE IV Last administered on 02/23/19at 21:14; Start 02/23/19 at 21:00; Stop 02/23/19 at 21:01; Status DC Ondansetron HCl (Zofran) 4 mg PRN Q8HRS PRN IV NAUSEA/VOMITING; Start 02/23/19 at 21:00; Stop 02/24/19 at 20:59 Dextrose/Sodium Chloride 1,000 ml @ 100 mls/hr 1X ONCE IV Last administered on 02/24/19at 00:58; Start 02/23/19 at 21:00; Stop 02/24/19 at 06:59; Status DC Atorvastatin Calcium (Lipitor) 40 mg HS PO ; Start 02/24/19 at 21:00 Clopidogrel Bisulfate (Plavix) 75 mg DAILY PO Last administered on 02/24/19 08:41; Start 02/24/19 at 09:00 Cyanocobalamin (Vitamin B-12) 2,500 mcg DAILY PO Last administered on 02/24/19 08:40; Start 02/24/19 at 09:00 Diltiazem HCl (Cardizem 24hr Cd) 300 mg DAILY PO Last administered on 02/24/19 08:39; Start 02/24/19 at 09:00 Acetaminophen/ Hydrocodone Bitart (Lortab 5/325) 1 tab PRN TID PRN PO MODERATE PAIN 4-6 Last administered on 02/24/19 00:57; Start 02/24/19 at 00:45 Albuterol/ Ipratropium (Duoneb) 3 ml RTQID NEB Last administered on 02/24/19 07:55; Start 02/24/19 at 08:00 Labetalol HCl (Trandate) 100 mg BID PO Last administered on 02/24/19 08:42; Start 02/24/19 at 09:00 Ascorbic Acid (Vitamin C) 500 mg DAILY PO Last administered on 02/24/19 08:4 1; Start 02/24/19 at 09:00 Calcium Acetate (Phoslo) 667 mg TIDWMEALS PO Last administered on 02/24/19 08:41; Start 02/24/19 at 08:00 Calcium Carbonate/ Glycine (Oscal) 500 mg DAILYWBKFT PO Last administered on 02/24/19 08:40; Start 02/24/19 at 08:00 Vitamin D (Vitamin D3) 2,000 unit DAILY PO Last administered on 02/24/19 08:40; Start 02/24/19 at 09:00 Hydralazine HCl (Apresoline) 100 mg BID PO Last administered on 02/24/19 08:43; Start 02/24/19 at 09:00 Isosorbide Mononitrate (Imdur) 120 mg DAILY PO ; Start 02/24/19 at 09:00; Stop 02/24/19 at 08:22; Status DC Magnesium Oxide (Magnesium Oxide) 400 mg DAILY PO Last administered on 02/24/19 08:40; Start 02/24/19 at 09:00 Ondansetron HCl (Zofran Odt) 4 mg PRN Q8HRS PRN PO NAUSEA/VOMITING 1ST CHOICE; Start 02/24/19 at 01:00 Prednisone (Prednisone) 60 mg DAILY PO ; Start 02/24/19 at 09:00; Stop 02/24/19 at 08:13; Status DC Influenza Virus Vaccine Quadrival (Afluria Quad 2019-20 (3yr Up) Syringe) 0.5 ml ONCE ONCE VAX IM ; Start 02/24/19 at 09:00; Stop 02/24/19 at 08:12; Status DC Prednisone (Prednisone) 40 mg DAILY PO Last administered on 02/24/19at 08:41; Start 02/24/19 at 09:00 Pantoprazole Sodium (Protonix) 40 mg DAILYAC PO Last administered on 02/24/19at 08:39; Start 02/24/19 at 09:30 Active Scripts Active Zofran (Ondansetron Hcl) 4 Mg Tablet 1 Tab PO PRN Q6-8HRS Duoneb 0.5-3(2.5) Mg/3 Ml (Albuterol/Ipratropium) 3 Ml Ampul.neb 3 Ml NEB RTQID 30 Days Reported Prednisone 50 Mg Tablet 60 Mg PO DAILY Hydralazine Hcl 100 Mg Tablet 100 Mg PO BID Cardizem Cd (Diltiazem Hcl) 240 Mg Cap.er.24h 300 Mg PO DAILY Calcium Acetate 667 Mg Tablet 667 Mg PO TIDWMEALS Labetalol Hcl 100 Mg Tablet 100 Mg PO BID Vitamin B-12 (Cyanocobalamin (Vitamin B-12)) 1,000 Mcg Tablet 2,500 Mcg PO DAILY Calcium (Calcium Carbonate) 600 Mg Tablet 600 Mg PO DAILY Magnesium (Magnesium Oxide) 400 Mg Capsule 1 Cap PO DAILY Hydrocodone-Apap 5-325 (Hydrocodone Bit/Acetaminophen) 1 Each Tablet 1 Tab PO PRN TID PRN Paz-C 1,000 Mg Tablet (Ascorbate Calcium/Bioflavonoid) 1 Each Tablet 1 Each PO DAILY Atorvastatin Calcium 40 Mg Tablet 40 Mg PO HS Vitamin D3 (Cholecalciferol (Vitamin D3)) 1,000 Unit Capsule 2,000 Unit PO DAILY Imdur (Isosorbide Mononitrate) 120 Mg Tab.er.24h 120 Mg PO DAILY Clopidogrel (Clopidogrel Bisulfate) 75 Mg Tablet 75 Mg PO DAILY Allergies Allergies: Coded Allergies: Penicillins (Verified Allergy, Intermediate, Hives, 11/11/17) itching bacitracin (Verified Allergy, Intermediate, 11/07/17) erythromycin base (Verified Allergy, Intermediate, Hives, 11/11/17) neomycin (Verified Allergy, Intermediate, 11/07/17) niacin (Verified Allergy, Intermediate, 11/07/17) polymyxin B (Verified Allergy, Intermediate, 11/07/17) ROS Review of System Per HPI Physical Exam Physical Exam GEN.: No apparent distress. HEENT: Head is normocephalic, atraumatic, OM moist NECK: Supple. LUNGS: Clear to auscultation. HEART: RRR, S1, S2 present. ABDOMEN: Soft, nontender. PD catheter +, No signs of infection EXTREMITIES: No edema NEUROLOGIC: Grossly normal SKIN: No rash Vital Signs Vital Signs Date Time Temp Pulse Resp B/P (MAP) Pulse Ox O2 Delivery O2 Flow Rate FiO2 02/24/19 08:43 82 141/80 02/24/19 07:58 97 Room Air 02/24/19 07:00 98.2 17 98.2 Assessment & Plan ESRD.On PD Continue home regimen of peritoneal dialysis , javier Chew Hypercalcemia- at presentation, Improving DC Ca supplements Anemia:Hgb stable, Epogen if hemoglobin< 10 Transfuse with next HD as needed. HTN - antihypertensives s/p temporal artery biopsy 02/10 for MORRIS earlier this month, dced on prednisone CAD-s/p CABG and stents S/P Cardiac cath 02/06/19 -previously placed stents patent, right coronary artery chronically occluded from prior cardiac catheterizations. No lesions needing intervention Labs Labs Laboratory Tests Test 02/23/19 19:52 02/24/19 00:50 02/24/19 04:30 02/24/19 07:52 White Blood Count 14.3 x10^3/uL (4.0-11.0) Red Blood Count 4.11 x10^6/uL (3.50-5.40) Hemoglobin 12.5 g/dL (12.0-15.5) Hematocrit 37.5 % (36.0-47.0) Mean Corpuscular Volume 91 fL (79-100) Mean Corpuscular Hemoglobin 30 pg (25-35) Mean Corpuscular Hemoglobin Concent 33 g/dL (31-37) Red Cell Distribution Width 17.6 % (11.5-14.5) Platelet Count 450 x10^3/uL (140-400) Neutrophils (%) (Auto) 79 % (31-73) Lymphocytes (%) (Auto) 14 % (24-48) Monocytes (%) (Auto) 7 % (0-9) Eosinophils (%) (Auto) 1 % (0-3) Basophils (%) (Auto) 0 % (0-3) Neutrophils # (Auto) 11.2 x10^3/uL (1.8-7.7) Lymphocytes # (Auto) 2.0 x10^3/uL (1.0-4.8) Monocytes # (Auto) 0.9 x10^3/uL (0.0-1.1) Eosinophils # (Auto) 0.1 x10^3/uL (0.0-0.7) Basophils # (Auto) 0.0 x10^3/uL (0.0-0.2) Sodium Level 137 mmol/L (136-145) 140 mmol/L (136-145) Potassium Level 3.5 mmol/L (3.5-5.1) 3.4 mmol/L (3.5-5.1) Chloride Level 96 mmol/L (98-107) 100 mmol/L (98-107) Carbon Dioxide Level 28 mmol/L (21-32) 27 mmol/L (21-32) Anion Gap 13 (6-14) 13 (6-14) Blood Urea Nitrogen 51 mg/dL (7-20) 53 mg/dL (7-20) Creatinine 7.7 mg/dL (0.6-1.0) 7.8 mg/dL (0.6-1.0) Estimated GFR (Cockcroft-Gault) 5.2 5.1 BUN/Creatinine Ratio 7 (6-20) 7 (6-20) Glucose Level 107 mg/dL (70-99) 108 mg/dL (70-99) Calcium Level 13.4 mg/dL (8.5-10.1) 11.2 mg/dL (8.5-10.1) Magnesium Level 1.9 mg/dL (1.8-2.4) Total Bilirubin 0.4 mg/dL (0.2-1.0) 0.3 mg/dL (0.2-1.0) Aspartate Amino Transf (AST/SGOT) 14 U/L (15-37) 13 U/L (15-37) Alanine Aminotransferase (ALT/SGPT) 15 U/L (14-59) 16 U/L (14-59) Alkaline Phosphatase 69 U/L (46-116) 58 U/L (46-116) Creatine Kinase 39 U/L (26-192) Creatine Kinase MB (Mass) 2.4 ng/mL (0.0-3.6) Creatine Kinase MB Relative Index % (0-4) Troponin I Quantitative 0.102 ng/mL (0.000-0.055) 0.164 ng/mL (0.000-0.055) 0.147 ng/mL (0.000-0.055) Total Protein 6.7 g/dL (6.4-8.2) 5.2 g/dL (6.4-8.2) Albumin 3.1 g/dL (3.4-5.0) 2.6 g/dL (3.4-5.0) Albumin/Globulin Ratio 0.9 (1.0-1.7) 1.0 (1.0-1.7) Lipase 106 U/L (73-393) Erythrocyte Sedimentation Rate 15 (0-25) Glucose (Fingerstick) 102 mg/dL (70-99) Laboratory Tests Test 02/23/19 19:52 02/24/19 00:50 02/24/19 04:30 02/24/19 07:52 White Blood Count 14.3 x10^3/uL (4.0-11.0) Red Blood Count 4.11 x10^6/uL (3.50-5.40) Hemoglobin 12.5 g/dL (12.0-15.5) Hematocrit 37.5 % (36.0-47.0) Mean Corpuscular Volume 91 fL (79-100) Mean Corpuscular Hemoglobin 30 pg (25-35) Mean Corpuscular Hemoglobin Concent 33 g/dL (31-37) Red Cell Distribution Width 17.6 % (11.5-14.5) Platelet Count 450 x10^3/uL (140-400) Neutrophils (%) (Auto) 79 % (31-73) Lymphocytes (%) (Auto) 14 % (24-48) Monocytes (%) (Auto) 7 % (0-9) Eosinophils (%) (Auto) 1 % (0-3) Basophils (%) (Auto) 0 % (0-3) Neutrophils # (Auto) 11.2 x10^3/uL (1.8-7.7) Lymphocytes # (Auto) 2.0 x10^3/uL (1.0-4.8) Monocytes # (Auto) 0.9 x10^3/uL (0.0-1.1) Eosinophils # (Auto) 0.1 x10^3/uL (0.0-0.7) Basophils # (Auto) 0.0 x10^3/uL (0.0-0.2) Sodium Level 137 mmol/L (136-145) 140 mmol/L (136-145) Potassium Level 3.5 mmol/L (3.5-5.1) 3.4 mmol/L (3.5-5.1) Chloride Level 96 mmol/L (98-107) 100 mmol/L (98-107) Carbon Dioxide Level 28 mmol/L (21-32) 27 mmol/L (21-32) Anion Gap 13 (6-14) 13 (6-14) Blood Urea Nitrogen 51 mg/dL (7-20) 53 mg/dL (7-20) Creatinine 7.7 mg/dL (0.6-1.0) 7.8 mg/dL (0.6-1.0) Estimated GFR (Cockcroft-Gault) 5.2 5.1 BUN/Creatinine Ratio 7 (6-20) 7 (6-20) Glucose Level 107 mg/dL (70-99) 108 mg/dL (70-99) Calcium Level 13.4 mg/dL (8.5-10.1) 11.2 mg/dL (8.5-10.1) Magnesium Level 1.9 mg/dL (1.8-2.4) Total Bilirubin 0.4 mg/dL (0.2-1.0) 0.3 mg/dL (0.2-1.0) Aspartate Amino Transf (AST/SGOT) 14 U/L (15-37) 13 U/L (15-37) Alanine Aminotransferase (ALT/SGPT) 15 U/L (14-59) 16 U/L (14-59) Alkaline Phosphatase 69 U/L (46-116) 58 U/L (46-116) Creatine Kinase 39 U/L (26-192) Creatine Kinase MB (Mass) 2.4 ng/mL (0.0-3.6) Creatine Kinase MB Relative Index % (0-4) Troponin I Quantitative 0.102 ng/mL (0.000-0.055) 0.164 ng/mL (0.000-0.055) 0.147 ng/mL (0.000-0.055) Total Protein 6.7 g/dL (6.4-8.2) 5.2 g/dL (6.4-8.2) Albumin 3.1 g/dL (3.4-5.0) 2.6 g/dL (3.4-5.0) Albumin/Globulin Ratio 0.9 (1.0-1.7) 1.0 (1.0-1.7) Lipase 106 U/L (73-393) Erythrocyte Sedimentation Rate 15 (0-25) Glucose (Fingerstick) 102 mg/dL (70-99) Review All relevant outside records, renal labs, imaging studies, telemetry/EKG's were reviewed. YURIDIA IBARRA MD Feb 24, 2019 11:42
[2019-02-24 15:00] VITALS: BP 104/48
[2019-02-24 19:00] VITALS: BP 131/68
[2019-02-24] MEDS: ATORVASTATIN CALCIUM 40 MG TABLET. PO SCH (20:57)
[2019-02-24 23:00] VITALS: BP 131/84
[2019-02-25 02:13] LABS: CALCIUM PTH 11.6 mg/dL (8.7-10.3); CREATININE PTH 6.84 mg/dL (0.57-1.00); PHOSPHORUS PTH 5.4 mg/dL (2.5-4.5); PTH INTACT 21 pg/mL (15-65)
[2019-02-25 03:00] VITALS: BP 134/60
[2019-02-25] MEDS: MAG HYDROX/ALUMINUM HYD/SIMETH 30 ML ORAL.SUSP PO PRN ×2 (05:55→22:52)
[2019-02-25 07:00] VITALS: BP 122/69
[2019-02-25] MEDS: IPRATRPIUM/ALBUTEROL 0.5/2.5MG 3 ML NEBU. NEB SCH ×4 (07:09→19:30)
--- NOTE | 2019-02-25 08:24 | PDOC ---
Provider Note Provider Note less MORRIS off imdur, ct head clear- sed rate down to 15 on pred, consistent w/ TA response- feels better but has no heat or food at home until $ on 02/27- i told her i cannot dc her to an unsafe environment CHRISTINA ROSENBAUM MD Feb 25, 2019 08:24
[2019-02-25] MEDS: MAGNESIUM OXIDE 400 MG TABLET PO SCH (08:32)
[2019-02-25] MEDS: CYANOCOBALAMIN (VITAMIN B-12) 1,000 MCG TABLET. PO SCH (08:32)
[2019-02-25] MEDS: ASCORBIC ACID 500 MG TABLET PO SCH (08:32)
[2019-02-25] MEDS: CLOPIDOGREL BISULFATE 75 MG TABLET PO SCH (08:33)
[2019-02-25] MEDS: CHOLECALCIFEROL (VITAMIN D3) 1,000 UNIT TABLET PO SCH (08:33)
[2019-02-25] MEDS: predniSONE 20 MG TABLET PO SCH (08:34)
[2019-02-25] MEDS: PANTOPRAZOLE 40 MG TABLET.DR. PO SCH (08:34)
[2019-02-25] MEDS: LABETALOL HCL 100 MG TABLET. PO SCH ×2 (08:37→21:32)
[2019-02-25 11:00] VITALS: BP 154/48
--- NOTE | 2019-02-25 14:08 | NUR ---
[facility] following for discharge planning. Chart reviewed, discussed with RN. Dr Pritchard's note indicated pt had stated she does not have heat or food at home, so he was unable to discharge due to safety. [facility] contacted pt's son, Bakari to discuss discharge planning. Bakari reported they do have heat, but had not turned it on yet. Bakari has no concerns whatsoever about pt returning home. [facility] notified RN. [facility] will continue to follow.
--- NOTE | 2019-02-25 14:24 | PDOC ---
SUBJECTIVE ROS Stable OBJECTIVE Vital Signs Vital Signs Date Time Temp Pulse Resp B/P (MAP) Pulse Ox O2 Delivery O2 Flow Rate FiO2 02/25/19 11:20 98 Room Air 02/25/19 11:00 98.0 79 18 154/48 (83) 98.0 I & 0 Intake and Output 02/25/19 07:00 Intake Total 1350 ml Balance 1350 ml Intake Oral 1350 ml # Voids 2 # Bowel Movements 1 PHYSICAL EXAM Physical Exam GEN.: No apparent distress. HEENT: Head is normocephalic, atraumatic, OM moist NECK: Supple. LUNGS: Clear to auscultation. HEART: RRR, S1, S2 present. ABDOMEN: Soft, nontender. PD catheter +, No signs of infection EXTREMITIES: No edema NEUROLOGIC: Grossly normal SKIN: No rash DIAGNOSIS/ASSESSMENT Assessment & Plan ESRD.On PD Continue home regimen of peritoneal dialysis , javier Chew Hypercalcemia- at presentation, Improving , no labs ordered this am I dced Ca supplements on 01/25 Anemia:Hgb stable, Epogen if hemoglobin< 10 Transfuse with next HD as needed. HTN - antihypertensives s/p temporal artery biopsy 02/10 for MORRIS earlier this month, dced on prednisone CAD-s/p CABG and stents S/P Cardiac cath 02/06/19 -previously placed stents patent, right coronary artery chronically occluded from prior cardiac catheterizations. No lesions needing intervention COMMENT/RELEVANT DATA Meds Current Medications Medications (Trade) Dose Ordered Sig/Shilo Start Time Stop Time Status Last Admin Dose Admin Acetaminophen/ Hydrocodone Bitart (Lortab 5/325) 1 tab PRN TID PRN 02/24/19 00:45 02/24/19 17:14 1 TAB Al Hydroxide/Mg Hydroxide (Mylanta Plus Xs) 30 ml PRN Q2HR PRN 02/24/19 19:30 02/25/19 05:55 30 ML Albuterol/ Ipratropium (Duoneb) 3 ml RTQID 02/24/19 08:00 02/25/19 11:20 3 ML Ascorbic Acid (Vitamin C) 500 mg DAILY 02/24/19 09:00 02/25/19 08:32 500 MG Atorvastatin Calcium (Lipitor) 40 mg HS 02/24/19 21:00 02/24/19 20:57 40 MG Calcium Acetate (Phoslo) 667 mg TIDWMEALS 02/24/19 08:00 02/24/19 11:44 DC 02/24/19 08:41 667 MG Calcium Carbonate/ Glycine (Oscal) 500 mg DAILYWBKFT 02/24/19 08:00 02/24/19 11:44 DC 02/24/19 08:40 500 MG Clopidogrel Bisulfate (Plavix) 75 mg DAILY 02/24/19 09:00 02/25/19 08:33 75 MG Cyanocobalamin (Vitamin B-12) 2,500 mcg DAILY 02/24/19 09:00 02/25/19 08:32 2,500 MCG Dextrose/Sodium Chloride 1,000 ml @ 100 mls/hr 1X ONCE 02/23/19 21:00 02/24/19 06:59 DC 02/24/19 00:58 100 MLS/HR Diltiazem HCl (Cardizem 24hr Cd) 300 mg DAILY 02/24/19 09:00 02/25/19 08:33 300 MG Hydralazine HCl (Apresoline) 100 mg BID 02/24/19 09:00 02/24/19 08:43 100 MG Influenza Virus Vaccine Quadrival (Afluria Quad 2019-20 (3yr Up) Syringe) 0.5 ml ONCE ONCE 02/24/19 09:00 02/24/19 08:12 DC Isosorbide Mononitrate (Imdur) 120 mg DAILY 02/24/19 09:00 02/24/19 08:22 DC Labetalol HCl (Trandate) 100 mg BID 02/24/19 09:00 02/24/19 20:57 100 MG Magnesium Oxide (Magnesium Oxide) 400 mg DAILY 02/24/19 09:00 02/25/19 08:32 400 MG Ondansetron HCl (Zofran Odt) 4 mg PRN Q8HRS PRN 02/24/19 01:00 02/24/19 17:13 4 MG Ondansetron HCl (Zofran) 4 mg PRN Q8HRS PRN 02/23/19 21:00 02/24/19 20:59 DC Pantoprazole Sodium (Protonix) 40 mg DAILYAC 02/24/19 09:30 02/25/19 08:34 40 MG Prednisone (Prednisone) 40 mg DAILY 02/24/19 09:00 02/25/19 08:34 40 MG Sodium Chloride 1,000 ml @ 1,000 mls/hr 1X ONCE 02/23/19 21:00 02/23/19 21:59 DC 02/23/19 21:14 1,000 MLS/HR Vitamin D (Vitamin D3) 2,000 unit DAILY 02/24/19 09:00 02/25/19 08:33 2,000 UNIT Lab Laboratory Tests Test 02/24/19 17:53 02/25/19 07:12 Glucose (Fingerstick) 217 mg/dL (70-99) 173 mg/dL (70-99) Results All relevant outside records, renal labs, imaging studies, telemetry/EKG's were reviewed. YURIDIA IBARRA MD Feb 25, 2019 14:24
[2019-02-25 15:00] VITALS: BP 148/64
[2019-02-25 19:00] VITALS: BP 158/58
[2019-02-25] MEDS: ATORVASTATIN CALCIUM 40 MG TABLET. PO SCH (21:31)
[2019-02-25 23:00] VITALS: BP 117/51
[2019-02-26 03:00] VITALS: BP 136/80
[2019-02-26 07:00] VITALS: BP 113/65
[2019-02-26] MEDS: IPRATRPIUM/ALBUTEROL 0.5/2.5MG 3 ML NEBU. NEB SCH (07:23)
[2019-02-26] MEDS: PANTOPRAZOLE 40 MG TABLET.DR. PO SCH (07:24)
[2019-02-26 07:37] LABS: ALBUMIN/GLOBULIN RATIO 1.2 (1.0-1.7); CALCIUM 9.5 mg/dL (8.5-10.1); CREATININE 7.1 mg/dL (0.6-1.0); GFR 5.7; POTASSIUM 3.7 mmol/L (3.5-5.1); TOTAL BILIRUBIN 0.2 mg/dL (0.2-1.0); TOTAL PROTEIN 5.6 g/dL (6.4-8.2)
--- NOTE | 2019-02-26 08:19 | PDOC ---
Provider Note Provider Note [id number] CHRISTINA ROSENBAUM MD Feb 26, 2019 08:19
[2019-02-26] MEDS: CYANOCOBALAMIN (VITAMIN B-12) 1,000 MCG TABLET. PO SCH (08:30)
[2019-02-26] MEDS: CHOLECALCIFEROL (VITAMIN D3) 1,000 UNIT TABLET PO SCH (08:31)
[2019-02-26] MEDS: MAGNESIUM OXIDE 400 MG TABLET PO SCH (08:31)
[2019-02-26 08:32] VITALS: BP 113/65
[2019-02-26] MEDS: predniSONE 20 MG TABLET PO SCH (08:32)
[2019-02-26] MEDS: CLOPIDOGREL BISULFATE 75 MG TABLET PO SCH (08:32)
[2019-02-26] MEDS: LABETALOL HCL 100 MG TABLET. PO SCH (08:32)
[2019-02-26] MEDS: ASCORBIC ACID 500 MG TABLET PO SCH (08:32)
--- NOTE | 2019-02-26 09:07 | DS ---
DATE OF DISCHARGE: 02/26/2019 HOSPITAL SUMMARY: A 73-year-old white female with end-stage renal disease, on peritoneal dialysis, came in with nausea, vomiting, diarrhea for a few days. She had no further diarrhea while in the hospital. Calcium was up to 13.4 and rest of lab work was normal. The PTH level was normal as well. Calcium came down to 11.2 with hydration. CBC aside from mild leukocytosis was unremarkable. Sed rate dropped from 60 from previous admission to 15 after the use of prednisone for presumed temporal arteritis. CT scan of the head was normal as was the abdomen and pelvis. She was given IV fluids as it appeared to be more of a viral type process and the calcium levels improved with hydration and her headache resolved by stopping the isosorbide that she was taking for coronary artery disease. At this time, she is asymptomatic and feeling rather comfortable to be followed as an outpatient. FINAL DIAGNOSES: 1. Viral gastroenteritis. 2. Hypercalcemia secondary to dehydration. 3. Nitrate induced headache. 4. Temporal arteritis. OPERATIONS: None. PROCEDURES: None. COMPLICATIONS: None. CONSULTATIONS: Dr. Melendrez. DISPOSITION: She will stay off the isosorbide medication, cut her prednisone down to 40 mg daily for the temporal arteritis. Follow up in 1-2 weeks to further taper the prednisone for benefit with safety as well. Continue renal diet. All the medicines remain the same. PROGNOSIS: Guarded. CHRISTINA ROSENBAUM MD DR: AVNI/concetta JOB#: [id number] / [id number]
--- NOTE | 2019-02-26 10:29 | NUR ---
Discharge Note: PT DISCHARGED HOME WITH SELF CARE. PT LEFT FACILITY VIA PRIVATE VEHCILE WITH SON CAROL AT 0830. PT STABLE AND ALERT UPON DISCHARGE. PT HAD NO IV ACCESS. PT EDUCATED ABOUT DISCHARGE INSTRUCTIONS, DISCHARGE MEDICATIONS, AND FOLLOW-UP INSTRUCTIONS. PT VOICED NO CONCERNS AT THIS TIME. PT LEFT WITH ALL PERSONAL BELONGINGS MARISA RIOJAS Discharge instructions and discharge home medications reviewed with Patient and a copy given. All questions have been answered and understanding verbalized.
== END 2019-02-26 10:41 | disposition home or self-care (01) | DRG 391 ==
LOC: ER 19:10 → 5 SOUTH 20:48
PROVIDERS: ADMIT Family Medicine; ATTEND Family Medicine
PROC: 3E1M39Z Irrigation of Peritoneal Cavity using Dialysate, Percutaneous Approach (ICD-10-PCS; principal; 2019-02-25)
DX: A08.4 Viral intestinal infection, unspecified (principal); N18.6 End stage renal disease; I13.2 Hypertensive heart and chronic kidney disease with heart failure and with stage 5 chronic kidney disease, or end stage renal disease; I48.91 Unspecified atrial fibrillation; J44.9 Chronic obstructive pulmonary disease, unspecified; M19.90 Unspecified osteoarthritis, unspecified site; D64.9 Anemia, unspecified; E83.52 Hypercalcemia; I25.10 Atherosclerotic heart disease of native coronary artery without angina pectoris; E11.22 Type 2 diabetes mellitus with diabetic chronic kidney disease; E78.00 Pure hypercholesterolemia, unspecified; I50.9 Heart failure, unspecified; M31.6 Other giant cell arteritis; E86.0 Dehydration; I25.2 Old myocardial infarction; Z89.612 Acquired absence of left leg above knee; Z95.0 Presence of cardiac pacemaker; Z88.0 Allergy status to penicillin; Z88.8 Allergy status to other drugs, medicaments and biological substances; Z99.2 Dependence on renal dialysis; Z95.5 Presence of coronary angioplasty implant and graft; Z95.1 Presence of aortocoronary bypass graft
CPT/HCPCS: 36415; 70450; 74176; 80053; 82553; 82962; 83690; 83735; 83970; 84484; 85025; 85651; 93005; 94640; 94760; 96361; 96374; J2405; J7030; J7512; J7620; Q0162; 99285-25; G0378